=== PATIENT | female | born 1965 | race Caucasian/White ===

== ENCOUNTER 2024-11-06 05:48 | Day surgery (SDC) | payer MEDICARE, SELFPAY ==
[2024-11-06] VITALS (7 sets, daily range): BP systolic 88–131; BP diastolic 46–72; PULSE 73–77; RESP 16–18; TEMP 36.1–36.7; O2SAT 92–95; BMI 47.1
[2024-11-06] MEDS: Lactated Ringers 1,000 ML 15 ML IV (07:30)
--- NOTE | 2024-11-06 07:41 | PCM.PRE.AN2 ---
ASA Classification* ASA Classification ASA Classification: 3 Assessment & Plan Anesthesia* Anesthesia Assessment Anesthesia Assessment: Discussed sedation and/or anesthesia options, risks, benefits, and alternatives with patient/parents/legal guardian/POA. Questions invited. The patient/parents/legal guardian/POA seems to understand and agrees to proceed with anesthesia plan. Reviewed the physical assessment, medical history, allergy history and patient home medications list prior to surgery/procedure/anesthetic and documented any changes. Performed airway and anesthesia risk assessments. 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 When Was Last Pacemaker Check QUESTION #4 FULL TEXT: You/Your Family Experience fever (hyperthermia) with Anesthesia Any additional information?: No Last Oral Intake Last Oral intake: Last Oral Intake NPO since 00:00 11/06/24 07:19 Meds taken in AM with sips of No 11/06/24 07:19 water? Meds patient instructed to take am of surgery PONV PONV - block out machine operator: PONV - block out machine operator Female Yes 11/06/24 07:24 HX of Motion Sickness No 11/06/24 07:24 HX of N/V After Surgery No 11/06/24 07:24 Non-Smoker Yes 11/06/24 07:24 Duration of Surgery greater No 11/06/24 07:24 than 60 minutes Number of Risk Factors 2 11/06/24 07:24 PONV Score Moderate Risk 11/06/24 07:24 Any additional information?: No Height & Weight Height & Weight: Anesthesia: Height & Weight Height 5 ft 6 in 11/06/24 07:19 Weight: 132.449 kg 11/06/24 07:19 Body Mass Index (BMI) 47.1 11/06/24 07:19 Respiratory Assessment Respiratory Assessment - block out machine operator: Respiratory Tract Infection Hx - block out machine operator Hx Respiratory Tract Infection No 11/06/24 07:24 Any additional information?: No STOP Sleep Apnea STOP Sleep Apnea - block out machine operator: STOP Sleep Apnea - block out machine operator Hx Hypertension No 11/06/24 07:24 Hx Sleep Apnea No 11/06/24 07:24 CPAP BIPAP Do you snore loudly (louder No 11/06/24 07:24 than talking or can be heard Do you often feel tired/ No 11/06/24 07:24 fatigued/ sleepy during daytime? Has anyone observed you stop No 11/06/24 07:24 breathing during sleep? STOP Results Negative 11/06/24 07:24 QUESTION #5 FULL TEXT : Do you snore loudly (louder than talking or can be heard through closed doors)? 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 Specify any problems Hx of Preganancy in last 3 No 11/06/24 07:24 Months Nurse Filling Out Transfusion DPRIEST 11/06/24 07:24 & Questions: Date: 11/06/24 11/06/24 07:24 Time: 07:27 11/06/24 07:24 Patient unable to answer at this time (ie. confused, unrespo Any additional information?: Yes Hx of Blood Transfusion: Yes Hx of Transfusion in last 3 Months: No Date of Last Transfusion (if within last 3 months): early 2023 @ [facility] Ever experience any problems with transfusion(s)?: No /Reproduction History /Reproductive History - block out machine operator: /Reproductive Hx- block out machine operator Hx Now No 11/06/24 07:24 Gestational Age (in weeks): EDC: Hx Hx Para Hx Section SAB No 11/06/24 07:24 Any additional information?: No Active Medications Active Medications: Current Medications Generic Name Dose Route Start Last Admin Trade Name Freq PRN Reason Stop Dose Admin Lactated Ringer's 1,000 mls @ 15 mls/hr 11/06/24 06:45 11/06/24 07:30 IV 15 mls/hr .Q48H TOM Administration PFSH Medical History Overactive bladder GERD (gastroesophageal reflux disease) Hypothyroidism Schizophrenia HTN (hypertension) Polyarthritis Hyperlipidemia Dysphagia Heart failure Diabetes COPD (chronic obstructive pulmonary disease) Depression Anxiety Cerebral palsy Home Medications ?Medication ?Instructions ?Recorded ?Last Taken ?Type apixaban 2.5 mg tablet 2.5 mg PO BID 10/15/24 Unknown History cetirizine 10 mg capsule (Zyrtec) 10 mg PO QDAY 10/15/24 Unknown History dapagliflozin propanediol 10 mg 10 mg PO QAM 10/15/24 Unknown History tablet dulaglutide 1.5 mg/0.5 mL 1.5 mg subcut QWEEK 10/15/24 Unknown History subcutaneous pen injector (Trulicity) dulaglutide 3 mg/0.5 mL 3 mg subcut QWEEK 10/15/24 Unknown History subcutaneous pen injector (Trulicity) famotidine 20 mg tablet 20 mg PO QDAY 10/15/24 Unknown History fluconazole 100 mg tablet 150 mg PO QDAY 10/15/24 Unknown History (Diflucan) fluticasone propionate 50 1 spray intranasal QDAY 10/15/24 Unknown History mcg/actuation nasal spray,suspension (Flonase Allergy Relief) furosemide 20 mg tablet (Lasix) 20 mg PO QAM 10/15/24 Unknown History gabapentin 300 mg capsule 300 mg PO TID 10/15/24 Unknown History insulin glargine 100 unit/mL (3 18 unit subcut QPM 10/15/24 Unknown History mL) subcutaneous pen (Lantus Solostar U-100 Insulin) insulin glargine 100 unit/mL 24 unit subcut QAM 10/15/24 Unknown History subcutaneous solution (Lantus U-100 Insulin) insulin lispro 100 unit/mL 1 sliding scale dose subcut 10/15/24 Unknown History subcutaneous pen (Humalog KwikPen USEASDIRECTD (U-100) Insulin) levothyroxine 137 mcg capsule 137 mcg PO QDAY 10/15/24 Unknown History mirabegron 50 mg tablet,extended 50 mg PO QDAY 10/15/24 Unknown History release 24 hr (Myrbetriq) topiramate 25 mg tablet (Topamax) 25 mg PO QDAY 10/15/24 Unknown History ubrogepant 100 mg tablet 100 mg PO ONCE 10/15/24 Unknown History acetaminophen 325 mg capsule 650 mg PO Q4H PRN fever or pain 11/06/24 Unknown History cephalexin 500 mg capsule 500 mg PO TID 11/06/24 Unknown History cholecalciferol (vitamin D3) 125 5,000 unit PO DAILY 11/06/24 Unknown History mcg (5,000 unit) tablet (Vitamin D3) diclofenac sodium 1 % topical gel 4.5 inch topical BID 11/06/24 Unknown History nystatin 100,000 unit/gram topical 1 applic topical DAILY 11/06/24 Unknown History powder (Nystop) pregabalin 75 mg capsule (Lyrica) 75 mg PO QHS 11/06/24 Unknown History zolmitriptan 5 mg disintegrating 5 mg PO Q4H PRN PRN migraine 11/06/24 Unknown History tablet headache Allergy/AdvReac Type Severity Reaction Status Date / Time No Known Allergies Allergy Unverified 10/15/24 13:34 Social History Smoking Status: Former smoker Review of Systems (Anesthesia) ROS Narrative System reviewed and no additional complaints, except as documented.
[2024-11-06 08:00] LABS: Bedside Glucose 176 mg/dL (74-106)
--- NOTE | 2024-11-06 08:05 | PCM.HP.STD ---
HPI - General General Date of Admission: 11/06/24 Date of Service: 11/06/24 Chief Complaint: diarrhea HPI Narrative The patient is a 59-year-old female who is being seen today for colonoscopy. She states that she has been having diarrhea for many many years. She [facility] a [facility]. The treating physician has advised her to get a colonoscopy. She believes that his sister had colon polyps. No family history of colon cancer. She denies any blood or tarry stools [facility] Medical History Overactive bladder GERD (gastroesophageal reflux disease) Hypothyroidism Schizophrenia HTN (hypertension) Polyarthritis Hyperlipidemia Dysphagia Heart failure Diabetes COPD (chronic obstructive pulmonary disease) Depression Anxiety Cerebral palsy Home Medications ?Medication ?Instructions ?Recorded ?Last Taken ?Type apixaban 2.5 mg tablet 2.5 mg PO BID 10/15/24 Unknown History cetirizine 10 mg capsule (Zyrtec) 10 mg PO QDAY 10/15/24 Unknown History dapagliflozin propanediol 10 mg 10 mg PO QAM 10/15/24 Unknown History tablet dulaglutide 1.5 mg/0.5 mL 1.5 mg subcut QWEEK 10/15/24 Unknown History subcutaneous pen injector (Trulicity) dulaglutide 3 mg/0.5 mL 3 mg subcut QWEEK 10/15/24 Unknown History subcutaneous pen injector (Trulicity) famotidine 20 mg tablet 20 mg PO QDAY 10/15/24 Unknown History fluconazole 100 mg tablet 150 mg PO QDAY 10/15/24 Unknown History (Diflucan) fluticasone propionate 50 1 spray intranasal QDAY 10/15/24 Unknown History mcg/actuation nasal spray,suspension (Flonase Allergy Relief) furosemide 20 mg tablet (Lasix) 20 mg PO QAM 10/15/24 Unknown History gabapentin 300 mg capsule 300 mg PO TID 10/15/24 Unknown History insulin glargine 100 unit/mL (3 18 unit subcut QPM 10/15/24 Unknown History mL) subcutaneous pen (Lantus Solostar U-100 Insulin) insulin glargine 100 unit/mL 24 unit subcut QAM 10/15/24 Unknown History subcutaneous solution (Lantus U-100 Insulin) insulin lispro 100 unit/mL 1 sliding scale dose subcut 10/15/24 Unknown History subcutaneous pen (Humalog KwikPen USEASDIRECTD (U-100) Insulin) levothyroxine 137 mcg capsule 137 mcg PO QDAY 10/15/24 Unknown History mirabegron 50 mg tablet,extended 50 mg PO QDAY 10/15/24 Unknown History release 24 hr (Myrbetriq) topiramate 25 mg tablet (Topamax) 25 mg PO QDAY 10/15/24 Unknown History ubrogepant 100 mg tablet 100 mg PO ONCE 10/15/24 Unknown History acetaminophen 325 mg capsule 650 mg PO Q4H PRN fever or pain 11/06/24 Unknown History cephalexin 500 mg capsule 500 mg PO TID 11/06/24 Unknown History cholecalciferol (vitamin D3) 125 5,000 unit PO DAILY 11/06/24 Unknown History mcg (5,000 unit) tablet (Vitamin D3) diclofenac sodium 1 % topical gel 4.5 inch topical BID 11/06/24 Unknown History nystatin 100,000 unit/gram topical 1 applic topical DAILY 11/06/24 Unknown History powder (Nystop) pregabalin 75 mg capsule (Lyrica) 75 mg PO QHS 11/06/24 Unknown History zolmitriptan 5 mg disintegrating 5 mg PO Q4H PRN PRN migraine 11/06/24 Unknown History tablet headache Allergy/AdvReac Type Severity Reaction Status Date / Time No Known Allergies Allergy Unverified 10/15/24 13:34 Social History Smoking Status: Former smoker Vital Signs Vital Signs Vital Signs: 11/06/24 07:19 11/06/24 07:19 11/06/24 07:54 Temperature 98.0 F 98.0 F Temperature Source Temporal Pulse Rate 77 77 Respiratory Rate 18 18 Respiratory Pattern Normal Blood Pressure 119/72 119/72 Blood Pressure Mean 87 Blood Pressure Source Monitor Blood Pressure Position Sitting Blood Pressure Location Right Forearm Pulse Ox 95 95 Oxygen Delivery Method Room Air Room Air Weight Weight: 292 lb Body Mass Index (BMI) 47.1 Physical Exam Const alert, oriented x3 and no apparent distress Results Lab / Micro Data Labs: Laboratory Results - last 24 hr 11/06/24 07:00: POC Glucose 176 H
--- NOTE | 2024-11-06 08:15 | COLBX_PTH ---
PATIENT: BHARAT KAUR LOC: EN U#:[id number] AGE/SX: 59/F ROOM: RE11/06/[address]: Dr. Parveen Varela MD : 1965 BED: DIS: 11/06/2024 SPEC #: [id number] RECD: 11/06/24 10:52 STATUS: STEFAN LAWRENCE #: [id number] KEN: 11/06/24 08:[address]: Parveen Varela DEPT: SURGICAL PATHOLOGY RECD BY: Eleazar Fortune ENTERED: 11/06/24 11:01 SP TYPE: COLON BX BROOK DR: Dr. Ragini Lentz MD Tissues: A - Cecum, NOS B - COLON BIOPSY C - Sigmoid colon biopsy Procedures: Surgery Specimen Level IV HEADER OPERATION: Colonoscopy, polypectomy, biopsy PRE-OP DIAGNOSIS: Fecal incontinence and screening for malignant neoplasm TISSUE SUBMITTED: A- Cecal polyp, B- Random colon biopsy, C- Sigmoid polyps MICROSCOPIC DIAGNOSIS A. Colon, cecum, polyp, biopsy: Tubulovillous adenoma, multiple fragments. B. Colon, random, biopsy: Colonic mucosa with no specific pathologic change. The histologic features of microscopic colitis are not demonstrated. C. Sigmoid colon, polyp, biopsy: Hyperplastic polyp, multiple fragments. MICROSCOPIC DESCRIPTION Slides are reviewed. GROSS DESCRIPTION A. Received in formalin in a container labeled with the patient's name, date of , and cecal polyp are 2 mejia-pink and polypoid pieces of mucosal tissue measuring 0.5 x 0.4 x 0.3 cm and 0.6 x 0.5 x 0.4 cm. No distinct resection margin is identified. The largest fragment is bisected. Submitted entirely in A1. B. Received in formalin in a container labeled with the patient's name, date of , and random colon biopsies are multiple mejia-pink fragments of mucosal tissue measuring 1.5 x 0.9 x 0.3 cm in aggregate. Submitted in toto in B1. C. Received in formalin in a container labeled with the patient's name, date of , and sigmoid polyps are multiple mejia-pink fragments of mucosal tissue measuring 1.1 x 0.5 x 0.3 cm in aggregate. Submitted in toto in C1. [facility] 11-06-2024 CPT:01193d9
--- NOTE | 2024-11-06 09:21 | PCM.POST.ANE ---
Anesthesia: Postop Eval I Current Vital Signs Temperature: 97.1 F Pulse Rate: 73 Blood Pressure: 88/46 Respiratory Rate: 18 Pulse Ox: 93 Assessment Airway patent: Yes Spontaneous unlabored respirations: Yes nausea: No Vomiting: No Anesthesia Complication: No Fluid Hydration Crystalloid volume administer (ml): 300 Total IV fluid infused: 300 Progress Note Anesthesia document: Postop Eval 1 completed: Yes
--- NOTE | 2024-11-06 09:30 | OP.COLON_ITS ---
Patient Name: Claudia Manzanares Procedure Date: 11/06/2024 7:39 AM Date of : 1965 Age: 59 Procedure: Colonoscopy Indications: Chronic diarrhea Providers: Parveen Varela MD Medicines: Monitored Anesthesia Care Patient Profile: This is a 59 year old female. Refer to note in patient chart for documentation of history and physical. Last Colonoscopy: none. The patient's first colonoscopy is today. Complications: No immediate complications. Estimated blood loss: Minimal. Procedure: Pre-Anesthesia Assessment: - Prior to the procedure, a History and Physical was performed, and patient medications and allergies were reviewed. The patient's tolerance of previous anesthesia was also reviewed. The risks and benefits of the procedure and the sedation options and risks were discussed with the patient. All questions were answered, and informed consent was obtained. Prior Anticoagulants: The patient has taken Eliquis (apixaban), last dose was 3 days prior to procedure. ASA Grade Assessment: III - A patient with severe systemic disease. After reviewing the risks and benefits, the patient was deemed in satisfactory condition to undergo the procedure. After I obtained informed consent, the scope was passed under direct vision. Throughout the procedure, the patient's blood pressure, pulse, and oxygen saturations were monitored continuously. The colonoscope was introduced through the anus and advanced to the cecum, identified by appendiceal orifice and ileocecal valve. The ileocecal valve, appendiceal orifice, and rectum were photographed. The entire colon was well visualized. The colonoscopy was performed without difficulty. The patient tolerated the procedure well. The quality of the bowel preparation was adequate. Moderate Sedation: See the other procedure note for documentation of moderate sedation with intraservice time. Scope In: 8:28:58 AM Scope Withdrawal Time 0 hours 26 minutes 35 seconds Scope Out: 9:07:04 AM Total Procedure Duration Time 0 hours 38 minutes 6 seconds Findings: The perianal and digital rectal examinations were normal. Multiple small-mouthed diverticula were found in the sigmoid colon. Internal hemorrhoids were found during retroflexion. The hemorrhoids were mild. A 5 mm polyp was found in the cecum. The polyp was semi-pedunculated. The polyp was removed with a hot snare. Resection and retrieval were complete. Verification of patient identification for the specimen was done by the nurse using the patient's name, date and medical record number. Estimated blood loss was minimal. Three semi-pedunculated polyps were found in the sigmoid colon. The polyps were 3 to 4 mm in size. These polyps were removed with a hot snare. Resection and retrieval were complete. Verification of patient identification for the specimen was done by the nurse using the patient's name, date and medical record number. Estimated blood loss was minimal. The exam was otherwise without abnormality on direct and retroflexion views. Impression: - Diverticulosis in the sigmoid colon. - Internal hemorrhoids. - One 5 mm polyp in the cecum, removed with a hot snare. Resected and retrieved. - Three 3 to 4 mm polyps in the sigmoid colon, removed with a hot snare. Resected and retrieved. - The examination was otherwise normal on direct and retroflexion views. Recommendation: - Discharge patient to home (ambulatory). - High fiber diet. - Await pathology results. - Repeat colonoscopy in 5 years for surveillance. - Return to my office PRN. - Continue present medications. Procedure Code(s): --- Professional --- 09179, Colonoscopy, flexible; with removal of tumor(s), polyp(s), or other lesion(s) by snare technique Diagnosis Code(s): --- Professional --- K64.8, Other hemorrhoids D12.0, Benign neoplasm of cecum D12.5, Benign neoplasm of sigmoid colon K57.30, Diverticulosis of large intestine without perforation or abscess without bleeding K52.9, Noninfective gastroenteritis and colitis, unspecified CPT copyright 2021 [employer]. All rights reserved. The codes documented in this report are preliminary and upon clinical documentation developer review may be revised to meet current compliance requirements. Parveen Varela MD 11/06/2024 9:30:39 AM This report has been signed electronically. Number of Addenda: 0 Note Initiated On: 11/06/2024 7:39 AM
--- NOTE | 2024-11-06 13:42 | POSTOPAN2_ITS ---
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 Spontaneous unlabored Yes 11/06/24 09:21 LABOR UNION BUSINESS REPRESENTATIVE.CSIR respirations Mental status nausea No 11/06/24 09:21 LABOR UNION BUSINESS REPRESENTATIVE.CSIR Vomiting No 11/06/24 09:21 LABOR UNION BUSINESS REPRESENTATIVE.CSIR Anesthesia Postop Eval I: Fluid Summary Crystalloid volume administer 300 11/06/24 09:21 LABOR UNION BUSINESS REPRESENTATIVE.CSIR (ml) Colloids volume administered ( ml) Blood Product volume administered (ml) Total IV fluid infused 300 11/06/24 09:21 LABOR UNION BUSINESS REPRESENTATIVE.CSIR Anesthesia Postop Eval I: Summary Notes Anesthesia Complication No 11/06/24 09:21 LABOR UNION BUSINESS REPRESENTATIVE.CSIR Anesthesia Complication Comment: Post-operative progress note Anesthesia: Postop Eval II Evaluation Mental status: Awake Pain Level: 0 nausea: No Vomiting: No
--- NOTE | 2024-11-06 13:42 | PCM.POSTANE2 ---
Anesthesia Postop Eval I Sum Postop Eval Completion status Anesthesia document: Postop Eval 1 completed: Yes Anesthesia Postop Eval I Summary Anesthesia Postop Eval I Summary: Anesthesia Postop Eval I: Assessment Summary Airway patent Yes 11/06/24 09:21 CUTTER OPERATOR HELPER.CSIR Spontaneous unlabored Yes 11/06/24 09:21 CUTTER OPERATOR HELPER.CSIR respirations Mental status nausea No 11/06/24 09:21 CUTTER OPERATOR HELPER.CSIR Vomiting No 11/06/24 09:21 CUTTER OPERATOR HELPER.CSIR Anesthesia Postop Eval I: Fluid Summary Crystalloid volume administer 300 11/06/24 09:21 CUTTER OPERATOR HELPER.CSIR (ml) Colloids volume administered ( ml) Blood Product volume administered (ml) Total IV fluid infused 300 11/06/24 09:21 CUTTER OPERATOR HELPER.CSIR Anesthesia Postop Eval I: Summary Notes Anesthesia Complication No 11/06/24 09:21 CUTTER OPERATOR HELPER.CSIR Anesthesia Complication Comment: Post-operative progress note Anesthesia: Postop Eval II Evaluation Mental status: Awake Pain Level: 0 nausea: No Vomiting: No
== END 2024-11-06 10:03 | disposition home or self-care (01) ==
LOC: EN 05:55 → AC 06:03
PROVIDERS: PCP Hospitalist; Referring Provider Surgery; Visit Provider Surgery
PROC: 0DJD8ZZ Inspection of Lower Intestinal Tract, Via Natural or Artificial Opening Endoscopic (ICD-10-PCS; CPT 45378; principal; 2024-11-06 08:10)
DX: K52.9 Noninfective gastroenteritis and colitis, unspecified (principal); I11.0 Hypertensive heart disease with heart failure; I50.9 Heart failure, unspecified; J44.9 Chronic obstructive pulmonary disease, unspecified; E11.9 Type 2 diabetes mellitus without complications; Z79.85 Long-term (current) use of injectable non-insulin antidiabetic drugs; Z79.84 Long term (current) use of oral hypoglycemic drugs; K57.30 Diverticulosis of large intestine without perforation or abscess without bleeding; K64.8 Other hemorrhoids; D12.0 Benign neoplasm of cecum; Z87.891 Personal history of nicotine dependence; Z83.719 Family history of colon polyps, unspecified; E78.5 Hyperlipidemia, unspecified; K21.9 Gastro-esophageal reflux disease without esophagitis; Z79.51 Long term (current) use of inhaled steroids; E03.9 Hypothyroidism, unspecified; Z79.890 Hormone replacement therapy; K63.5 Polyp of colon
CPT/HCPCS: 45385; 82962; 88305; J2405

== ENCOUNTER → 2024-11-09 | Outpatient (CLI) | payer MEDICARE, SELFPAY ==
--- NOTE | 2024-11-09 16:50 | RAD_ITS ---
PROCEDURE: LUMBAR SPINE 2 OR 3 VIEWS 11/09/2024 REASON FOR EXAM: SPONDYLOSIS WITHOUT MYELOPATHY OR RADICULOPATHY, LUMBAR REGION TECHNIQUE: 2 view(s) of the lumbar spine COMPARISON: None FINDINGS: Vertebral body heights and alignment are maintained. Multilevel endplate osteophyte formation with disc space narrowing and facet arthrosis, worst at L4-5 and L5-S1. Aortic atherosclerosis. Nonobstructive appearance of the visualized bowel gas. RAD/Lumbar Spine 2 or 3 Views IMPRESSION: Moderate multilevel degenerative changes of the lumbar spine, worst at L4-5 and L5-S1. Reading Location: [id number]
--- NOTE | 2024-11-09 16:50 | RAD_ITS ---
PROCEDURE: KNEE 1 OR 2 VIEWS 11/09/2024 REASON FOR EXAM: OSTEOARTHRITIS TECHNIQUE: 2 views of each knee with weightbearing COMPARISON: None FINDINGS: No fracture or traumatic malalignment. Moderate to severe narrowing in the medial and patellofemoral compartments of the right knee, and mild in the left. Tricompartmental osteophyte formation, right knee greater than left. Trace right knee joint effusion. No significant left knee joint effusion. Soft tissues are unremarkable bilaterally. RAD/Knee 1 or 2 Views IMPRESSION: 1. Moderate to severe right and mild left knee osteoarthritis. 2. Trace right knee joint effusion. Reading Location: [facility]
--- NOTE | 2024-11-09 16:50 | RAD_ITS ---
PROCEDURE: KNEE 1 OR 2 VIEWS 11/09/2024 REASON FOR EXAM: OSTEOARTHRITIS TECHNIQUE: 2 views of each knee with weightbearing COMPARISON: None FINDINGS: No fracture or traumatic malalignment. Moderate to severe narrowing in the medial and patellofemoral compartments of the right knee, and mild in the left. Tricompartmental osteophyte formation, right knee greater than left. Trace right knee joint effusion. No significant left knee joint effusion. Soft tissues are unremarkable bilaterally. RAD/Knee 1 or 2 Views IMPRESSION: 1. Moderate to severe right and mild left knee osteoarthritis. 2. Trace right knee joint effusion. Reading Location: [facility]
== END | disposition home or self-care (01) ==
PROVIDERS: PCP Hospitalist; Referring Provider Anesthesiology Pain Medicine; Visit Provider Anesthesiology Pain Medicine
DX: M17.0 Bilateral primary osteoarthritis of knee (principal); M47.817 Spondylosis without myelopathy or radiculopathy, lumbosacral region; M47.816 Spondylosis without myelopathy or radiculopathy, lumbar region
CPT/HCPCS: 72100; 73560

== ENCOUNTER 2025-01-15 23:08 | Emergency (ER) | payer MEDICARE, MEDICAID, SELFPAY ==
[2025-01-15 23:09] VITALS: BP 131/85; PULSE 100; RESP 18; TEMP 37.3; O2SAT 92; BMI 46.3
[2025-01-15 23:13] VITALS: BP 131/85; PULSE 100; RESP 18; TEMP 37.3; O2SAT 92
--- NOTE | 2025-01-15 23:18 | ED.RN ---
Legal Guardian, Neelima Benson, called by this RN. Voicemail left for consent to treat.
[2025-01-15] MEDS: 0.9% Normal Saline (1000mL) 1,000 ML 999 ML IV (23:52)
--- OUTSIDE RECORDS SUMMARY | 2025-01-15 23:57 | XMS RPT_ITS | CCD ---
Author Organization [facility] Care Team Providers Care Residential Program Coordinator Name Role Phone Lisa Leiva Primary Care Provider [phone] Unavailable Primary Care Provider Unavailabl e Lisa Leiva Primary Care Provider Lisa Leiva Primary Care Provider Vasiliy Griffin Primary Care Provider [phone] Required, No Pcp Unavailable Unavailable Mahesh Mcknight Unavailable Tawnya Ramirez Unavailable Unavailable Lisa Leiva MD Primary Care Provider None, No PCP Unavailable Unavailable Unavailable Unavailable Brice Mcfarland APRN Primary Care Provider FREDERIC DUKE Attending Unavailable VASILIY GRIFFIN Primary Care Unavailable FREDERIC DC Admitting Unavailable FREDERIC DC Attending Unavailable FREDERIC DC Referring Unavailable CADY TRAN Consulting Unavailable BRICE MCFARLAND A Primary Care Unavailable EDUARD YANES Attending Unavailable RADHA PURDY Consulting Unavailable MIGUEL A ELLISON I Admitting Unavailable BRICE MCFARLAND A Primary Care Unavailable NAKUL GREEN Consulting Unavailable MITCH PARSONS Attending Unavailable BRICE MCFARLAND A Primary Care Unavailable RASHEED SALAZAR Attending Unavailable TORRI GAN Attending Unavailable JOHANA CLIFFORD Attending Unavailable Iachini MEETING COORDINATOR, Ehden A Primary Care Provider KAYYALI I, AMMAR Referring Unavailable IACHINI, DEN A Primary Care Unavailable KAYYALI I, AMMAR Referring Unavailable IACHINI, DEN A Primary Care Unavailable STORM JOSEPH A Admitting Unavailable STORM JOSEPH Attending Unavailable DAYAN FOLEY Attending Unavailable POLICHERLA, RAINEY Attending Unavailable POLICHERLA, RAINEY Referring Unavailable POLICHERLA, RAINEY Attending Unavailable POLICHERLA, RAINEY Referring Unavailable POLICHERLA, RAINEY Attending Unavailable POLICHERLA, RAINEY Referring Unavailable Gaby MEETING COORDINATOR - ACOUSTICS TEACHER, [facility] Primary Care Provider GABY VASILIY Primary Care Unavailable EDWARD MORALES Admitting Unavailable FRANCISCO BROWN Attending Unavailable Bronson Kearney ([facility]) Primary Care Provider Iachini MEETING COORDINATOR-ENVELOPE MACHINE ADJUSTER, [facility] A Primary Care Provider Iacarni MEETING COORDINATOR-ENVELOPE MACHINE ADJUSTER, [facility] A Primary Care Provider Nichole RIDDLE, Dr. Johana Christianson Attending Provider Nichole RIDDLE, Dr. Johana Christianson Referring Provider Tor RIDDLE, Dr. Ragini Pierce Primary Care [facility] er Nichole RIDDLE, Dr. Johana Christianson Other Provider Collin RIDDLE, Dr. Oreilly Attending Provider [phone] Collin RIDDLE, Dr. Oreilly Referring Provider [phone] Tor RIDDLE, Dr. Ragini Pierce Referring Provider Deepak ACOUSTICS TEACHER-CPenny Attending Provider Ragini Lentz Primary Care Unavailabl Johana Fritz Consulting Unavailable Johana Varela Attending Unavailable Johana Varela Referring Unavailable Tor, Ragini Pierce Primary Care Unavailabl e Johana Varela Attending Unavailable Johana Varela Referring Unavailable Tor, Ragini Pierce Primary Care Unavailabl e Denilson Polanco Attending Unavailable Denilson Polanco Referring Unavailable Tor, Ragini Pierce Primary Care Ragini Oconnell Referring UnavailPenny Mitchell Attending Unavailable Johana Varela Attending Unavailable FARRUKH ANDERS PA-C Attending VANCE Vidales DO Attending Unavailable ADAL HARTMANN DO Attending Unavailable FARRUKH ANDERS PA-C Attending Sam jones REFERRING, Russell Primary Care Unavailable Allergies Allergy Classification Reported Allergen(s) Allergy Type Date of Onset Reaction(s) Facility Dust (1 source) Dust Substance Allergy Unknown [facility] Histamine (7 sources) Histamine Drug Allergy 8 [facility] MITE EXTRACT (7 sources) MITE EXTRACT Drug Allergy 0 [facility] (20 sources) Histamine; Translations: [HISTAMINE PHOSPHATE] Drug Allergy 8 [place] (2 sources) Valproate Drug Allergy 6 [place], [place] (11 sources) MITE EXTRACT Drug Allergy 0 [place] (1 source) Moroc[place] house dust mite allergenic extract / house dust mite allergenic extract; Translations: [Dust Mite Mixed Allergen Ext SOLN] Drug Allergy [facility] Work Phone: (1 source) Histamine POWD; Translations: [Histamine POWD] Allergy to drug (finding) [facility] Work Phone: (20 sources) ALLERGENIC EXT-MITE, D FARINAE; Translations: [ALLERGENIC EXT-MITE, D FARINAE] Propensity to adverse reactions to drug (disorder) 0 [facility] Repository (1 source) DIVALPROEX; Translations: [DIVALPROEX] Propensity to adverse reactions to drug (disorder) 2 [facility] Repository Medications Current Medications Medication Drug Class(es) Dates Sig (Normalized) Sig (Original) acetaminophen 325 mg oral capsule (20 sources) Start: 11-06-2024 take 2 capsules by mouth every four hours as needed for pain Acetaminophen 325 mg capsule Active 650 mg PO Q4H as needed for fever or pain November 06, 2024 12:00am Start: 05-13-2024 End: 05-23-2024 take 2 tablets by mouth every six hours as needed for pain and fever acetaminophen (Tylenol) 325 MG tablet Take 2 tablets (650 mg) by mouth every 6 hours as needed for mild pain (1-3) or fever (For temp greater than 100.4 F (38 C)) for up to 10 days. 05/13/2024 05/23/2024 Active Start: 05-10-2024 End: 05-13-2024 take 1 tablet by mouth every six hours as needed for pain and fever acetaminophen (Tylenol) tablet 650 mg Start: 05-10-2024 End: 05-10-2024 1,000 mg, Oral, Once, On 05/10/24 at 1100, For 1 dose, Maximum dose of acetaminophen is 4000 mg from all sources in 24 hours. Start: 10-07-2022 take 2 tablets by mo uth every six hours as needed for pain acetaminophen (TYLENOL EXTRA STRENGTH) 500 mg tablet Take 2 tablets (1,000 mg total) by mouth every 6 (six) hours as needed for pain. 90 tablet 10/07/2022 Active Start: 08-24-2022 acetaminophen (TYLENOL) tablet 650 mg Start: 08-21-2022 acetaminophen (TYLENOL) tablet 650 mg Start: 09-08-2021 take 1 tablet by brooks th four times daily as needed for pain acetaminophen (TYLENOL) 500 MG tablet Take 1 tablet by mouth 4 times daily as needed for Pain 20 tablet 1 09/08/2021 Active Start: 01-20-2020 take 31.25 mL by brooks th every six hours as needed for fever acetaminophen (TYLENOL CHILDRENS) 160 MG/5ML suspension Take 31.25 mLs by mouth every 6 hours as needed for Fever 355 mL 1 01/20/2020 Active Start: 01-20-2020 End: 01-20-2020 take 2 tablets by mouth every six hours as needed for pain acetaminophen (APAP EXTRA STRENGTH) 500 MG tablet Take 2 tablets by mouth every 6 hours as needed for Pain 30 tablet 0 01/20/2020 01/20/2020 Discontinued (Therapy completed) Start: 10-28-2017 End: 01-20-2020 Acetaminophen (TYLENOL) 167 MG/5ML LIQD Indications: Pain, dental Use as needed 1 Bottle 0 10/28/2017 01/20/2020 Discontinued (Therapy completed) [id number] 200 actuat albuterol 0.09 mg/actuat metered dose inhaler (20 sources) beta2-Adrenergic Agonist Start: 06-18-2022 take 2 puff(s) by inhalation every four hours as needed for wheezing albuterol (PROVENTIL HFA;VENTOLIN HFA) 90 mcg/actuation inhaler Indications: Asthma, unspecified asthma severity, unspecified whether complicated, unspecified whether persistent Inhale 2 puffs every 4 (four) hours as needed for wheezing. 18 g 06/18/2022 Active Start: 02-23-2021 take 2 puff(s) by in halation every six hours as needed for wheezing PROAIR HFA 108 (90 Base) MCG/ACT inhaler Indications: Chronic obstructive pulmonary disease, unspecified COPD type (HCC) INHALE 2 PUFFS INTO THE LUNGS EVERY 6 HOURS NEEDED FOR WHEEZING 8.5 g 5 02/23/2021 Active Start: 07-25-2020 take 2 puff(s) by in halation every six hours as needed for wheezing albuterol sulfate HFA (PROAIR HFA) 108 (90 Base) MCG/ACT inhaler Indications: Chronic obstructive pulmonary disease, unspecified COPD type (HCC) Inhale 2 puffs into the lungs every 6 hours as needed for Wheezing 1 Inhaler 5 07/25/2020 Active Start: 07-25-2020 take 2 puff(s) by in halation every six hours as needed for wheezing albuterol sulfate HFA (PROAIR HFA) 108 (90 Base) MCG/ACT inhaler Indications: Chronic obstructive pulmonary disease, unspecified COPD type (HCC) Inhale 2 puffs into the lungs every 6 hours as needed for Wheezing 1 Inhaler 5 07/25/2020 Active Start: 03-11-2020 albuterol (PRO VENTIL) (2.5 MG/3ML) 0.083% nebulizer solution Start: 03-11-2020 albuterol (PRO VENTIL) nebulizer solution 2.5 mg Start: 07-21-2019 End: 02-26-2020 take 2 puff(s) by inhalation every six hours as needed for wheezing albuterol sulfate HFA (PROAIR HFA) 108 (90 Base) MCG/ACT inhaler Inhale 2 puffs into the lungs every 6 hours as needed for Wheezing 1 Inhaler 11 07/21/2019 02/26/2020 Discontinued (LIST CLEANUP) Start: 01-06-2019 take 2 puff(s) by in halation four times daily as needed for wheezing albuterol sulfate HFA 108 (90 Base) MCG/ACT inhaler Inhale 2 puffs into the lungs 4 times daily as needed for Wheezing 3 Inhaler 5 01/06/2019 Active Start: 01-06-2019 take 2 puff(s) by in halation four times daily as needed for wheezing albuterol sulfate HFA 108 (90 Base) MCG/ACT inhaler Inhale 2 puffs into the lungs 4 times daily as needed for Wheezing 3 Inhaler 5 01/06/2019 Active Start: 06-18-2018 take 2 puff(s) by mo ut every six hours as needed for wheezing PROAIR HFA 108 (90 Base) MCG/ACT inhaler INHALE 2 PUFFS BY MOUTH EVERY 6 HOURS NEEDED FOR WHEEZING OR FORSHORTNESS OF BREATH 1 Inhaler 5 06/18/2018 Active Start: 06-18-2018 take 2 puff(s) by mo uth every six hours as needed for wheezing PROAIR HFA 108 (90 Base) MCG/ACT inhaler INHALE 2 PUFFS BY MOUTH EVERY 6 HOURS NEEDED FOR WHEEZING OR FORSHORTNESS OF BREATH 1 Inhaler 5 06/18/2018 Active ProAir HFA 108 ( 90 Base) MCG/ACT Inhalation Aerosol Solution Quantity: 0 Refills: 0 Ordered: 25-Aug-2020 DO Active albuterol 0.833 mg/ml / ipratropium bromide 0.167 mg/ml inhalation solution (20 sources) Anticholinergic, beta2-Adrenergic Agonist Start: 02-26-2022 ipratropium-albuteroL (DUONEB) 0.5 mg-3 mg(2.5 mg base)/3 mL nebulizer Indications: Asthma, unspecified asthma severity, unspecified whether complicated, unspecified whether persistent Inhale 3 mL by nebulization in the morning and 3 mL at noon and 3 mL in the evening and 3 mL before bedtime. 360 mL 11 02/26/2022 Active Start: 07-25-2020 End: 08-23-2022 take 3 mL by inhalation every four hours ipratropium-albuterol (DUONEB) 0.5-2.5 (3) MG/3ML SOLN nebulizer solution Indications: Chronic obstructive pulmonary disease, unspecified COPD type (HCC) Inhale 3 mLs into the lungs every 4 hours 360 mL 5 07/25/2020 08/23/2022 Discontinued (Stop Taking at Discharge) Start: 01-19-2020 ipratropium-al buterol (DUONEB) 0.5-2.5 (3) MG/3ML SOLN nebulizer solution Take 3 mLs by nebulization every 6 hours as needed for Shortness of Breath 120 vial 11 01/19/2020 Active Start: 01-06-2019 ipratropium-al buterol (DUONEB) 0.5-2.5 (3) MG/3ML SOLN nebulizer solution Take 3 mLs by nebulization 4 times daily 360 mL 11 01/06/2019 Active Albuterol-Ipratr opium 2.5-0.5 MG/3ML SOLN Quantity: 0 Refills: 0 Ordered: 25-Aug-2020 DO Active Albuterol-Ipratr opium [place] Quantity: 0 Refills: 0 Ordered: 20-Oct-2020 Radha Holman A Generic Substitution Allowed albuterol sulfate HFA 108 (90 Base) MCG/ACT inhaler (12 sources) Start: 01-06-2019 take 2 puff(s) by inhalation four times daily as needed for wheezing albuterol sulfate HFA 108 (90 Base) MCG/ACT inhaler Inhale 2 puffs into the lungs 4 times daily as needed for Wheezing 3 Inhaler 5 01/06/2019 Suspended Start: 01-06-2019 take 2 puff(s) by in halation four times daily as needed for wheezing albuterol sulfate HFA 108 (90 Base) MCG/ACT inhaler Inhale 2 puffs into the lungs 4 times daily as needed for Wheezing 3 Inhaler 5 01/06/2019 Active aluminum hydroxide 40 mg/ml / magnesium hydroxide 40 mg/ml / simethicone 4 mg/ml oral suspension (12 sources) take 30 mL by mouth twice daily at mealtime aluminum & magnesium hydroxide-simethicone (ALMACONE) 200-200-20 MG/5ML SUSP suspension Take 30 mLs by mouth 2 times daily (with meals) 0 Active apixaban 2.5 mg oral tablet (20 sources) Factor Xa Inhibitor Start: 025 take 1 tablet by mouth twice daily Apixaban 2.5 mg tablet Active 2.5 mg PO TWICE A DAY October 15, 2024 12:00am Start: 09-13-2022 End: 05-13-2024 take 1 tablet by mouth in the morning, then take 1 tablet by mouth at bedtime apixaban (ELIQUIS) 5 mg tablet Indications: Acute deep vein thrombosis (DVT) of proximal vein of right lower extremity (CMS-HCC) Take 1 tablet (5 mg total) by mouth in the morning and 1 tablet (5 mg total) before bedtime. 60 tablet 3 09/13/2022 Active Start: 08-21-2022 End: 09-27-2022 take 2 tablets by mouth twice daily, then take 1 tablet by mouth twice daily apixaban (ELIQUIS) 5 MG TABS tablet Take 2 tablets by mouth 2 times daily for 7 days, THEN 1 tablet 2 times daily. 88 tablet 0 08/21/2022 09/27/2022 Suspended Start: 08-21-2022 End: 08-28-2022 apixaban (ELIQUIS) tablet 10 mg Start: 11-02-2020 End: 11-02-2020 apixaban (ELIQUIS) tablet 10 mg Start: 11-02-2020 End: 09-01-2022 take 5 mg by mouth twice daily 5 mg, Oral, 2 TIMES ISABEL LY, First dose on Sat08/24/22 at 2100, Until Discontinued Indication of Use: Treatment-DVT/PE ANTICOAGULANT ARIPiprazole 5 mg oral tablet (20 sources) Atypical Antipsychotic Start: 07-13-2022 End: 08-23-2022 ARIPiprazole (ABILIFY) 5 mg tablet 07/13/2022 Active aspirin 81 mg delayed release oral tablet (20 sources) Platelet Aggregation Inhibitor, Nonsteroidal Anti-inflammatory Drug Start: 01-19-2019 take 1 tablet by mouth once daily aspirin (ASPIRIN LOW DOSE) 81 MG EC tablet TAKE 1 TABLET BY MOUTH DAILY 30 tablet 3 01/14/2020 Active Start: 10-21-2018 take 1 tablet by brooks th once daily aspirin 81 MG tablet Take 1 tablet by mouth daily 30 tablet 2 10/21/2018 Active benzocaine 0.1 mg/mg oral gel (13 sources) Standardized Chemical Allergen Start: 01-20-2020 benzocaine (ORAJEL) 10 % mucosal gel Apply to affected tooth up to 4 times a day as needed for pain 9 g 0 01/20/2020 Active benztropine mesylate 1 mg oral tablet (20 sources) Anticholinergic, Antihistamine take 0.5 mg by mouth twice daily benztropine (COGENTIN) 1 MG tablet Take 0.5 mg by mouth 2 times daily 0 Active take 1 tablet by mouth twice isabel ly benztropine (COGENTIN) 1 MG tablet Take 1 mg by mouth 2 times daily 0 Active calcium carbonate 500 mg chewable tablet (1 source) Start: 08-21-2022 calcium carbon ate (TUMS) chewable tablet 1,000 mg calcium chloride 0.0014 meq/ ml / potassium chloride 0.004 meq/ml / sodium chloride 0.103 meq/ml / sodium lactate 0.028 meq/ml injectable solution (2 sources) Start: 03-11-2020 lactated ringe rs infusion 1,000 mL Start: 12-01-2019 lactated ringe rs infusion cetirizine hydrochloride 10 mg oral capsule (20 sources) Histamine-1 Receptor Antagonist Start: 10-15-2024 End: 12-02-2024 take 1 capsule by mouth once daily as needed Cetirizine (Zyrtec) 10 mg capsule Active 10 mg PO daily as needed December 02, 2024 12:00am Start: 11-02-2019 End: 11-02-2019 cetirizine HCl (ZYRTEC) 5 MG /5ML solution 5 mg Start: 11-02-2019 take 5 mL by mouth once daily cetirizine HCl (ZYRTEC) 5 MG/5ML SOLN Take 5 mLs by mouth daily 300 mL 0 11/02/2019 Active Cholecalciferol (VITAMIN D-3 ) 5000 UNIT/ML LIQD (3 sources) Cholecalciferol (VITAMIN D-3) 5000 UNIT/ML LIQD Place 5,000 Units under the tongue 0 Suspended Cholecalciferol (VITAMIN D-3) 5000 UNIT/ML LIQD Place 5,000 Units under the tongue 0 Active dapagliflozin 10 mg oral tablet (7 sources) Sodium-Glucose Cotransporter 2 Inhibitor Start: 05-10-2024 End: 05-14-2025 take 1 tablet by mouth once daily in the morning Dapagliflozin Propanediol 10 mg tablet Active 10 mg PO EVERY MORNING October 15, 2024 12:00am 24 hr darifenacin 7.5 mg extended release oral tablet (20 sources) Cholinergic Muscarinic Antagonist Start: 04-14-2019 darifenacin (ENABLEX) 7.5 MG extended release tablet famotidine 20 mg oral tablet (7 sources) Histamine-2 Receptor Antagonist Start: 10-15-2024 take 1 tablet by mouth once daily Famotidine 20 mg tablet Active 20 mg PO daily October 15, 2024 12:00am Start: 05-13-2024 End: 05-13-2025 take 1 tablet by mouth twice daily famotidine (Pepcid) 20 MG tablet Take 1 tablet (20 mg) by mouth 2 times daily. 05/13/2024 05/13/2025 Active Start: 05-10-2024 End: 05-13-2024 famotidine (Pepcid) tablet 2 0 mg fluconazole 150 mg oral tablet (5 sources) Azole Antifungal Start: 12-02-2024 take 1 tablet by mouth once daily Fluconazole 150 mg tablet Active 150 mg PO daily December 02, 2024 12:00am Start: 10-15-2024 End: 12-02-2024 Fluconazole (Diflucan) 100 m g tablet Discontinued 150 mg PO daily October 15, 2024 12:00am December 02, 2024 10:54am Start: 10-27-2020 End: 11-07-2020 take 2 tablets by mouth once daily fluconazole 200 mg oral tablet ; 2 tab(s) orally once a day for 12 days Quantity: 24 Refills: 0 Ordered: 27-Oct-2020 Nicole Deleon Start: 27-Oct-2020 End: 07-Nov-2020 Generic Substitution Allowed Comments: Do not take this drug if you are .Finish all this medication unless otherwise directed by prescriber. Comment on above: Do not take this hermilo g if you are .Finish all this medication unless otherwise directed by prescriber. fluticasone propionate 0.05 mg/actuat metered dose nasal spray (20 sources) Corticosteroid Start: take 50 ug nasal route once daily Fluticasone Propionate (Flonase Allergy Relief) 50 mcg/actuation spray,suspension Active 1 NMA INTRANASAL daily October 15, 2024 12:00am administer into each nostril Start: 02-25-2020 take 2 spray(s) nasa l route once daily fluticasone (FLONASE) 50 MCG/ACT nasal spray Indications: Acute bacterial sinusitis 2 sprays by Each Nostril route daily 1 Bottle 0 02/25/2020 Active Start: 06-30-2019 take 2 spray(s) nasa l route once daily fluticasone (FLONASE) 50 MCG/ACT nasal spray Indications: Non-seasonal allergic rhinitis, unspecified trigger 2 sprays by Each Nostril route daily 3 Bottle 1 06/30/2019 Active Fluticasone Petr tity: 0 Refills: 0 Ordered: 20-Oct-2020 Radha Holman Generic Substitution Allowed 120 actuat fluticasone propionate 0.115 mg/actuat / salmeterol 0.021 mg/actuat metered dose inhaler (20 sources) Corticosteroid, beta2-Adrenergic Agonist Start: 07-21-2019 take 2 puff(s) by inhalation twice daily ADVAIR HFA 115-21 MCG/ACT inhaler Inhale 2 puffs into the lungs 2 times daily 1 Inhaler 11 07/21/2019 Active Start: 02-25-2019 ADVAIR HFA 115 -21 MCG/ACT inhaler Advair HFA 115-2 1 MCG/ACT Inhalation Aerosol Quantity: 0 Refills: 0 Ordered: 25-Aug-2020 DO Active gabapentin 300 mg oral capsule (20 sources) Anti-epileptic Agent Start: 05-10-2024 End: 05-13-2025 take 1 capsule by mouth three times daily Gabapentin 300 mg capsule Active 300 mg PO THREE TIMES A DAY October 15, 2024 12:00am Start: 01-08-2023 take 1 capsule by mo [facility] three times daily gabapentin (NEURONTIN) 100 mg capsule Indications: Lumbosacral radiculopathy , 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 90 capsule 5 01/08/2023 Active Start: 09-01-2022 gabapentin (NE URONTIN) capsule 100 mg glimepiride 1 mg oral tablet (5 sources) Sulfonylurea Start: 11-21-2015 take 1 tablet by mouth once daily before breakfast glimepiride (AMARYL) 1 MG tablet Take 1 tablet by mouth every morning (before breakfast) 30 tablet 2 11/21/2015 Active take 1 tablet by brooks th once daily before breakfast glimepiride (AMARYL) 2 MG tablet Take 2 mg by mouth every morning (before breakfast) 0 Active guaiFENesin 400 mg oral tablet (2 sources) Start: 11-13-2018 take 1 tablet by mouth twice daily as needed for cough guaiFENesin 400 MG tablet Take 1 tablet by mouth 2 times daily as needed for Cough 20 tablet 0 11/13/2018 Active hydrOXYzine hydrochloride 10 mg oral tablet (1 source) Antihistamine Start: 08-25-2022 hydrOXYzine HC l (ATARAX) tablet 10 mg Incontinence Supply Disposable (INCONTINENCE BRIEF LARGE) MISC (20 sources) Start: 08-15-2017 Incontinence S upply Disposable (INCONTINENCE BRIEF LARGE) MISC Indications: Medication refill Patient states she needs xl in the select brand 3 Package 3 08/15/2017 Suspended Start: 08-15-2017 Incontinence S upply Disposable (INCONTINENCE BRIEF LARGE) MISC Indications: Medication refill Patient states she needs xl in the select brand 3 Package 3 08/15/2017 Active 3 ml insulin glargine 100 unt/ml pen injector (3 sources) Insulin Analog Start: 10-15-2024 Insulin Glargi ne (Lantus Solostar U-100 Insulin) 100 unit/mL (3 mL) insulin pen Active 18 U SC EVERY EVENING October 15, 2024 12:00am Insulin Glargine (Lantus U-100 Insulin) 100 unit/mL solution (3 sources) Start: 10-15-2024 Insulin Glargi ne (Lantus U-100 Insulin) 100 unit/mL solution Active 24 U SC EVERY MORNING October 15, 2024 12:00am 3 ml insulin lispro 100 unt/ml pen injector (5 sources) Insulin Analog Start: 10-15-2024 Insulin Lispro (Humalog Kwikpen Insulin) 100 unit/mL insulin pen Active 1 sliding scale dose SC Use as Directed October 15, 2024 12:00am Start: 05-13-2024 Insulin Lispro (Humalog) 100 UNIT/ML solution injection Glucose: Dose: LESS than 150 No Insulin, 150-199 2 Units, 200-249 4 Units, 250-299 6 Units, 300-349 8 Units, 350-400 10 Units, Above 400 12 Units 05/13/2024 Active levothyroxine sodium 0.137 mg oral capsule (20 sources) l-Thyroxine Start: 10-15-2024 take 1 capsule by mouth once daily Levothyroxine 137 mcg capsule Active 137 ug PO daily October 15, 2024 12:00am Start: 05-11-2024 End: 05-14-2025 take 1 tablet by mouth once daily before breakfast levothyroxine (Synthroid, Levoxyl) 137 MCG tablet Take 1 tablet (137 mcg) by mouth every morning (before breakfast). 05/14/2024 05/14/2025 Active Start: 08-25-2022 take 200 ug by mouth once prerna y 200 mcg, Oral, DAILY, First dose on [facility] 08/25/22 at 0700, Until Discontinued Tube feeding (TF) interaction, obtain physician order to manage, recommend holding TF for 30 minutes before and after dose. Start: 08-22-2022 End: 08-22-2022 take 200 ug by mouth once daily 200 mcg, Oral, DAILY, First dose on [place] 08/23/22 at 0700, Until Discontinued Tube feeding (TF) interaction, obtain physician order to manage, recommend holding TF for 30 minutes before and after dose. take 1 tablet by brooks th in the morning for hypothyroidism, then take 3 tablets by mouth once daily for hypothyroidism levothyroxine (SYNTHROID, LEVOTHROID) 50 MCG tablet Take 1 tablet (50 mcg total) by mouth in the morning. 3 tablets by mouth one time a day for hypothyroidism . Active levothyroxine (S YNTHROID) 175 MCG tablet Take 200 mcg by mouth Daily 0 Active Levothyroxine So dium 175 MCG Oral Tablet Quantity: 0 Refills: 0 Ordered: 25-Aug-2020 DO Active take 1 tablet by mouth once prerna y levothyroxine (SYNTHROID) 175 MCG tablet Take 175 mcg by mouth Daily 0 Active Levothyroxine So dium Quantity: 0 Refills: 0 Ordered: 20-Oct-2020 Radha Holman A Generic Substitution Allowed 10 ml lidocaine hydrochloride 10 mg/ml injection (1 source) Antiarrhythmic, Amide Local Anesthetic Start: 12-01-2019 End: 12-01-2019 lidocaine PF 1 % injection 1 mL loperamide hydrochloride 2 mg oral capsule (2 sources) Opioid Agonist Start: 08-30-2022 End: 09-09-2022 loperamide (IMODIUM) capsule 2 mg lurasidone hydrochloride 40 mg oral tablet (4 sources) Atypical Antipsychotic Start: 05-11-2024 End: 06-13-2024 take 1 tablet by mouth once daily at breakfast lurasidone (Latuda) 40 MG tablet Take 1 tablet (40 mg) by mouth daily (with breakfast). 05/14/2024 06/13/2024 Active 100 ml magnesium sulfate 10 mg/ml injection (1 source) Start: 08-21-2022 take 1000 mg intravenously every hour as needed 1,000 mg, IntraVENous, at 100 mL/hr, Administer over 1 Hours, PRN, Other, Per IV Magnesium Replacement Protocol, Starting on Sat08/21/22 at 0340 Mg Lab Rep lacement Action 1.4 -1.6 &nbsp ; 1 gram IVPB x 2 doses &nbs p; & nbsp; &nbs p; & nbsp; &nbs p; & nbsp; &nbs p; ( 2 gram Total) 1.0 -1.3 &nbsp ; 1 gram IVPB x 4 doses &nbs p; & nbsp; &nbs p; & nbsp; &nbs p; & nbsp; &nbs p; ( 4 gram Total) <1. 0 &n bsp; &nbsp ; &n bsp; CALL PHYSICIAN and &nb sp; &nb sp; &nb sp; 1 gram IVPB x 4 doses &nb sp; (4 gram Total) &nb sp;Infuse at 1 gram/hr Re peat Mag level next AM Protoco l not for use in Patients with CrCl<30ml/min&n bsp; metFORMIN hydrochloride 500 mg oral tablet (20 sources) Biguanide Start: 08-27-2022 metFORMIN (GLUCOPHAGE) tablet 1,000 mg Start: 08-26-2022 End: 08-27-2022 metFORMIN (GLUCOPHAGE) table t 500 mg Start: 08-21-2022 metFORMIN (GLU COPHAGE) tablet 500 mg Start: 07-19-2022 RIOMET 500 mg/ 5 mL solution Indications: type 2 diabetes mellitus Take 5 mL (500 mg total) by mouth in the morning and 5 mL (500 mg total) in the evening. Take with meals. Indications: type 2 diabetes mellitus. 900 mL 3 07/19/2022 Active Start: 06-06-2015 RIOMET 500 MG/ 5ML SOLN 5 mLs daily 0 06/06/2015 Active Start: 06-06-2015 RIOMET 500 MG/ 5ML SOLN 5 mLs daily 0 06/06/2015 Active metFORMIN HCl 50 0 MG/5ML SOLN Take by mouth 0 Active metFORMIN HCl - 500 MG Oral Tablet Quantity: 0 Refills: 0 Ordered: 25-Aug-2020 DO Active metFORMIN / pioglitazone (1 source) Biguanide, Peroxisome Proliferator Receptor alpha Agonist, Peroxisome Proliferator Receptor gamma Agonist, Thiazolidinedione Metformin HCl-Pioglitazone HCl Quantity: 0 Refills: 0 Ordered: 20-Oct-2020 Radha Holman Generic Substitution Allowed 24 hr mirabegron 50 mg extended release oral tablet (20 sources) beta3-Adrenergic Agonist Start: 025 take 1 tablet by mouth once daily Mirabegron (Myrbetriq) 50 mg tablet extended release 24 hr Active 50 mg PO daily October 15, 2024 12:00am Start: 05-24-2022 take 1 tablet by brooks th every twenty-four hours in the morning mirabegron (MYRBETRIQ) 50 mg tablet extended release 24 hr Indications: Urge incontinence Take 1 tablet (50 mg total) by mouth in the morning. 90 tablet 3 05/24/2022 Active Start: 04-14-2019 MYRBETRIQ 50 M G TB24 50 mg daily 11 04/14/2019 Active Myrbetriq 50 MG Oral Tablet Extended Release 24 Hour Quantity: 0 Refills: 0 Ordered: 25-Aug-2020 DO Active Mirabegron Quant ity: 0 Refills: 0 Ordered: 20-Oct-2020 Radha Holman Generic Substitution Allowed mometasone furoate 0.05 mg/actuat metered dose nasal spray (2 sources) Corticosteroid Start: 08-27-2018 take 2 spray(s) by inhalation once daily mometasone (NASONEX) 50 MCG/ACT nasal spray 2 sprays by Nasal route daily 1 Inhaler 3 08/27/2018 Active Nebulizers (COMPRESSOR/NEBULI ZER) [facility] [place] ([place] sources[place] Start: 09-27-2015 Nebulizers (COMPRESSOR/NEBUL IZER) [facility] [place] Indications: Simple chronic bronchitis (HCC) Use for shortness of breath as needed 1 each 3 09/27/2015 Suspended Start: 09-27-2015 Nebulizers (CO MPRESSOR/NEBULIZER) [facility] [place] Indications: Simple chronic bronchitis (HCC) Use for shortness of breath as needed 1 each 3 09/27/2015 Active 24 hr nicotine 0.875 mg/hr transdermal system (20 sources) Cholinergic Nicotinic Agonist Start: 08-25-2022 apply 1 dose transdermal route once daily as needed 1 patch, TransDERmal, Administer over 24 Hours, DAILY PRN, nicotine crav ing, Starting on 08/25/22 at 1242 Apply new patch to nonhairy, clean, dry skin on the upper body or upper outer arm. Rotate patch sites. Notify pharmacy if patient or provider prefers patch to be removed at bedtime and replaced in the morning. Hazardous Medication -- Refer to facility policy for handling and disposal. Start: 08-25-2022 nicotine (VENTURA DERM CQ) 14 MG/24HR 1 patch Start: 08-21-2022 nicotine (VENTURA DERM CQ) 21 MG/24HR 1 patch Start: 03-01-2021 NICOTROL 10 MG inhaler Indications: Encounter for smoking cessation counseling INHALE 1 PUFF INTO THE LUNGS NEEDED FOR SMOKING CESSATION 1 each 3 03/01/2021 Active Start: 12-05-2020 NICOTROL 10 MG inhaler Indications: Encounter for smoking cessation counseling INHALE 1 PUFF INTO THE LUNGS NEEDED FOR SMOKING CESSATION 168 Inhaler 3 12/05/2020 Active Start: 07-08-2020 nicotine (VENTURA TROL) 10 MG inhaler Indications: Encounter for smoking cessation counseling Inhale 1 puff into the lungs as needed for Smoking cessation 1 Inhaler 3 07/08/2020 Active Start: 07-08-2020 apply 1 dose transde rmal route once daily nicotine (NICODERM CQ) 14 MG/24HR Indications: Tobacco use disorder Place 1 patch onto the skin daily 42 patch 0 07/08/2020 Active Start: 03-26-2019 End: 10-28-2020 apply 1 dose transdermal route every twenty-four hours nicotine (NICODERM CQ) 21 MG/24HR Indications: Encounter for smoking cessation counseling PLACE 1 PATCH ONTO THE SKIN EVERY 24 HOURS 28 patch 3 10/29/2019 10/28/2020 Active Nicotine 14 MG/2 4HR Transdermal Patch 24 Hour Quantity: 0 Refills: 0 Ordered: 25-Aug-2020 DO Active Nicotine Quantit y: 0 Refills: 0 Ordered: 20-Oct-2020 Radha Holman Status: Discontinued Generic Substitution Allowed nitrofurantoin 5 mg/ml oral suspension (5 sources) Nitrofuran Antibacterial Start: 06-19-2019 End: 06-29-2019 take 10 mL by mouth four times daily nitrofurantoin (FURADANTIN) 25 MG/5ML suspension Take 10 mLs by mouth 4 times daily for 10 days 400 mL 0 06/19/2019 06/29/2019 Active Start: 10-14-2018 take 1 capsule by [facility] twice daily nitrofurantoin (MACRODANTIN) 100 MG capsule Indications: Urinary tract infection without hematuria, site unspecified TAKE 1 CAPSULE BY MOUTH 2 TIMES DAILY FOR 10 DAYS 20 capsule 0 10/14/2018 Active nystatin 100 unt/mg topical powder (20 sources) Polyene Antifungal Start: 11-06-2024 Nystatin (N ystop) 100,000 unit/gram powder Active 1 NMA TOPICAL DAILY November 06, 2024 12:00am Start: 02-06-2023 nystatin (MYCO STATIN) powder Indications: Intertriginous candidiasis Apply 1 Application topically in the morning and 1 Application before bedtime. Apply to affected areas.. 15 g 02/06/2023 Active Start: 10-27-2020 End: 11-07-2020 take 5 mL by mouth every eight hours nystatin 100,000 units/mL oral suspension ; 5 milliliter(s) orally every 8 hours Quantity: 200 Refills: 0 Ordered: 27-Oct-2020 Nicole Deleon Start: 27-Oct-2020 End: 07-Nov-2020 Generic Substitution Allowed Comments: Finish all this medication unless otherwise directed by prescriber.Shake well before use. Comment on above: Finish all this medi cation unless otherwise directed by prescriber.Shake well before use. omeprazole (PRILOSEC) 2 MG/ML SUSP 2 mg/mL oral suspension (2 sources) Start: End: take 10 mL by mouth once daily omeprazole (PRILOSEC) 2 MG/ML SUSP 2 mg/mL oral suspension Indications: Gastroesophageal reflux disease without esophagitis Take 10 mLs by mouth Daily 300 mL 0 03/26/2019 04/25/2019 Active ondansetron 4 mg disintegrating oral tablet (15 sources) Serotonin-3 Receptor Antagonist Start: End: take 1 tablet by mouth every eight hours as needed for nausea ondansetron (ZOFRAN ODT) 4 MG disintegrating tablet Take 1 tablet by mouth every 8 hours as needed for Nausea 20 tablet 0 09/29/2020 Active Start: 12-01-2019 End: 12-01-2019 ondansetron (ZOFRAN) injecti on 4 mg ondansetron (ZOFRAN-ODT) disintegrating tablet 4 mg (2 sources) Start: 08-24-2022 ondansetron (Z OFRAN-ODT) disintegrating tablet 4 mg Start: 08-21-2022 ondansetron (Z OFRAN-ODT) disintegrating tablet 4 mg 1.75 ml paliperidone palmitate 312 mg/ml prefilled syringe (20 sources) Atypical Antipsychotic Start: 11-01-2020 INVEGA TRINZA 546 mg/1.75 mL syringe injection Inject 1.75 mL (546 mg total) into the appropriate muscle every 3 (three) months. 11/01/2020 Active inject 410 mg by int ramuscular injection every three months paliperidone palmitate (INVEGA SUSTENNA) 234 MG/1.5ML SUSP IM injection Inject 410 mg into the muscle once Every 3 months 0 Active inject 410 mg by int ramuscular injection once paliperidone palmitate (INVEGA SUSTENNA) 234 MG/1.5ML SUSP IM injection Inject 410 mg into the muscle once 0 Active paliperidone palmitate (INVEGA SUSTENNA) 234 MG/1.5ML SUSP IM injection (3 sources) inject 410 mg by intramuscular injection every three months paliperidone palmitate (INVEGA SUSTENNA) 234 MG/1.5ML SUSP IM injection Inject 410 mg into the muscle once Every 3 months 0 Suspended inject 410 mg by int ramuscular injection every three months paliperidone palmitate (INVEGA SUSTENNA) 234 MG/1.5ML SUSP IM injection Inject 410 mg into the muscle once Every 3 months 0 Active pantoprazole 40 mg delayed release oral tablet (20 sources) Proton Pump Inhibitor Start: 11-14-2022 take 1 tablet by mouth once daily pantoprazole (PROTONIX) 40 mg EC tablet TAKE 1 TABLET BY MOUTH EVERY DAY 90 tablet 11/14/2022 Active Start: 08-24-2022 take 40 mg by mouth once daily 40 mg, Oral, DAILY, First dose on Sat08/24/22 at 1930, Until Discontinued Do not crush or break. Start: 08-22-2022 take 40 mg by mouth once daily 40 mg, Oral, DAILY, First dose on Sat08/22/22 at 1145, Until Discontinued Do not crush or break. Start: 10-27-2020 End: 04-30-2021 take 1 tablet by mouth once daily Pantoprazole Sodium 40 MG Oral Tablet Delayed Release TAKE 1 TABLET DAILY. Quantity: 90 Refills: 2 Ordered: 10-Nov-2020 Mahesh Mcknight MD Start : 10-Nov-2020 Active Comment on above: It is very important that you take or use this exactly as directed. Do not skip doses or discontinue unless directed by your doctor.Obtain medical advice before taking any non-prescription drugs as some may affect the action of this medication.Swallow whole. Do not crush. penicillin v potassium 50 mg/ml oral solution (4 sources) Start: 01-20-20 End: 01-27-20 20 take 10 mL by mouth four times daily penicillin v potassium (VEETID) 250 MG/5ML suspension Take 10 mLs by mouth 4 times daily for 7 days 280 mL 0 01/20/2020 01/27/2020 Active Start: 11-02-2019 End: 11-02-2019 penicillin v potassium (VEET ID) 250 MG/5ML suspension 500 mg Start: 11-02-2019 End: 11-12-2019 take 10 mL by mouth four times daily penicillin v potassium (VEETID) 250 MG/5ML suspension Take 10 mLs by mouth 4 times daily for 10 days 1 Bottle 1 11/02/2019 11/12/2019 Active petrolatum 610 mg/ml topical cream (4 sources) Start: 08-23-2022 Skin Protectan ts, Misc. (HYDROCERIN) CREA cream Apply topically 2 times daily 228 g 0 08/23/2022 Active Start: 08-22-2022 Hydrocerin cre am CREA Potassium Chloride (20 sources) Start: 08-21-2022 potassium chlo ride (KLOR-CON M) extended release tablet 40 mEq Start: 10-04-2021 potassium chlo ride (KAYCIEL) 20 mEq/15 mL solution Take 15 mL (20 mEq total) by mouth in the morning. 473 mL 3 10/04/2021 Active Start: 09-29-2020 potassium chlo ride 20 MEQ/15ML (10%) oral solution 40 mEq Start: 08-20-2020 take 15 mL by mouth once daily potassium chloride 20 MEQ/15ML (10%) oral solution Indications: Hypokalemia TAKE 15 MLS BY MOUTH DAILY 900 mL 0 09/30/2020 Active Start: 02-29-2020 take 15 mL by mouth once daily potassium chloride 20 MEQ/15ML (10%) oral solution Indications: Hypokalemia Take 15 mLs by mouth daily 900 mL 0 02/29/2020 Active Promethazine (3 sources) Phenothiazine Start: 03-11-2020 promethazine ( PHENERGAN) tablet 12.5 mg Start: 12-02-2019 End: 12-02-2019 promethazine (PHENERGAN) inj ection 25 mg Start: 11-28-2019 End: 11-28-2019 promethazine (PHENERGAN) inj ection 25 mg topiramate 25 mg oral tablet (3 sources) Start: 10-15-2024 take 1 tablet by mouth once daily Topiramate (Topamax) 25 mg tablet Active 25 mg PO daily October 15, 2024 12:00am TPN (1 source) Start: 10-27-2020 TPN ; K22.0; K 20.9 Quantity: 1 Refills: 0 Ordered: 27-Oct-2020 Nicole Deleon Start: 27-Oct-2020 Status: Discontinued Generic Substitution Allowed ubrogepant 100 mg oral tablet (3 sources) Start: 10-15-2024 take 1 tablet by mouth once Ubrogepant 100 mg tablet Active 100 mg PO ONCE October 15, 2024 12:00am as a single dose; may repeat once in >=2 hours after first dose if needed vitamin b 12 1 mg oral tablet (2 sources) Vitamin B12 Start: 07-14-2018 vitamin B-12 (CYANOCOBALAMIN) 1000 MCG tablet ZOLMitriptan 5 mg oral tablet (20 sources) Serotonin-1b and Serotonin-1d Receptor Agonist Start: 12-02-2024 take 1 tablet by mouth every two hours Zolmitriptan 5 mg tablet Active 0 PO .COMPLEX December 02, 2024 12:00am take 1 tab at onset of headache; if no relief, may repeat 1 tab after at least 2 hrs; max = 2 tabs/24 hrs PO Start: 11-06-2024 take 1 tablet by brooks th every four hours as needed for headache Zolmitriptan 5 mg tablet,disintegrating Active 5 mg PO EVERY 4 HOURS NEEDED as needed for migraine headache November 06, 2024 12:00am Start: 01-20-2020 take 1 tablet by brooks th once as needed ZOLMitriptan (ZOMIG) 5 mg tablet Indications: Migraine without aura and without status migrainosus, not intractable Take 1 tablet (5 mg total) by mouth once as needed for migraine for up to 54 doses. May repeat in 2 hours if unresolved. Do not exceed 10 mg in 24 hours. 9 tablet 5 01/08/2023 Active Completed/Discontinued Medications Medication Drug Class(es) Dates Sig (Normalized) Sig (Original) acetaminophen 325 mg / HYDROcodone bitartrate 5 mg oral tablet (1 source) Opioid Agonist Start: 08-30-2021 End: 08-30-2021 HYDROcodone-acetam inophen (NORCO) 5-325 MG per tablet 1 tablet Start: 08-30-2021 End: 08-30-2021 HYDROcodone-acetaminophen (N ORCO) 5-325 MG per tablet 1 tablet amoxicillin 500 mg / clavulanate 125 mg oral tablet (6 sources) Penicillin-class Antibacterial Start: 08-23-2022 End: 09-02-2022 take 1 tablet by mouth every eight hours, then take 1 tablet by mouth three times daily 1 tablet, Oral, EVERY 8 HOURS SCHEDULED (3 times per day), First dose on Sat08/24/22 at 2200, Until Discontinued Antimicrobial Indications: Skin and Soft Tissue Infection Skin duration of therapy: 5 days Start: 08-23-2022 End: 08-30-2022 amoxicillin-clavulanate (AUG MENTIN) 500-125 MG per tablet 1 tablet Start: 02-25-2020 End: 02-26-2020 take 1 tablet by mouth twice daily amoxicillin-clavulanate (AUGMENTIN) 875-125 MG per tablet Indications: Acute bacterial sinusitis Take 1 tablet by mouth 2 times daily for 5 days 10 tablet 0 02/25/2020 02/26/2020 Discontinued (LIST CLEANUP) Start: 06-17-2019 End: 06-22-2019 take 10 mL by mouth twice daily amoxicillin-clavulanate (AUGMENTIN) 250-62.5 MG/5ML suspension Indications: Dysuria Take 10 mLs by mouth 2 times daily for 5 days 100 mL 0 06/17/2019 06/22/2019 Active atorvastatin 20 mg oral tablet (20 sources) HMG-CoA Reductase Inhibitor Start: 08-22-2022 take 40 mg by mouth once daily 40 mg, Oral, NIGHTLY, First dose on Sat08/22/22 at 2100, Until Discontinued Start: 04-14-2019 take 1 tablet by brooks th in the morning atorvastatin (LIPITOR) 20 mg tablet Indications: Mixed hyperlipidemia Take 1 tablet (20 mg total) by mouth in the morning. 90 tablet 3 07/19/2022 Active Atorvastatin Marquise cium 20 MG Oral Tablet Quantity: 0 Refills: 0 Ordered: 25-Aug-2020 DO Active Atorvastatin Marquise cium Quantity: 0 Refills: 0 Ordered: 20-Oct-2020 Radha Holman Generic Substitution Allowed azithromycin 250 mg oral tablet (14 sources) Macrolide Antimicrobial Start: 02-25-2020 End: 08-23-2022 take 1 tablet by mouth once daily azithromycin (ZITHROMAX) 250 MG tablet Take 250 mg by mouth daily 0 02/25/2020 08/23/2022 Discontinued (Stop Taking at Discharge) barium sulfate 98 % suspension 100 mL (1 source) Start: 06-23-2019 End: 06-23-2019 barium sulfate 98 % suspension 100 mL 60 actuat budesonide 0.08 mg/actuat / formoterol fumarate 0.0045 mg/actuat metered dose inhaler (2 sources) Corticosteroid, beta2-Adrenergic Agonist Start: 08-25-2022 take 2 puff(s) by inhalation twice daily 2 puff, Inhalation, 2 TIMES DAILY, First dose on 08/25/22 at 1300, Until Discontinued Substituted for Fluticasone-Salme terol (ADVAIR HFA) Start: 08-22-2022 take 2 puff(s) by in halation twice daily 2 puff, Inhalation, 2 TIMES DAILY, First dose on Sat08/22/22 at 1145, Until Discontinued Substituted for Fluticasone-Salmeterol (ADVAIR HFA) 24 hr buPROPion hydrochloride 150 mg extended release oral tablet (6 sources) Aminoketone Start: 08-23-2022 take 150 mg by mouth once daily in the morning 150 mg, Oral, EVERY MORNING, First dose on 08/25/22 at 0900, Until Discontinued Do not crush or break. Start: 08-21-2022 End: 08-22-2022 buPROPion (WELLBUTRIN SR) ex tended release tablet 150 mg cefdinir 300 mg oral capsule (1 source) Cephalosporin Antibacterial Start: 08-21-2022 End: 08-23-2022 take 1 capsule by mouth twice daily cefdinir (OMNICEF) 300 MG capsule Take 300 mg by mouth 2 times daily 0 08/21/2022 08/23/2022 Discontinued (Stop Taking at Discharge) cefTRIAXone (Rocephin) 1,000 mg in sodium chloride 0.9 % 50 mL IVPB Mini-Bag Plus (2 sources) Start: 05-10-2024 End: 05-10-2024 1,000 mg, IntraVENous, at 100 mL/hr, Administer over 30 Minutes, Once, On 05/10/24 at 1325, For 1 dose, Mini-Bag Plus bag, Suspected Indication (Select all that apply): Urinary Tract Infection cefTRIAXone (ROCEPHIN) 1,000 mg in sterile water 10 mL IV syringe (1 source) Start: 08-22-2022 End: 08-22-2022 take 100 mg intravenously every twenty-four hours 1,000 mg, IntraVENous, EVERY 24 HOURS, 7 doses, First dose on Sat08/22/22 at 0300, Last dose on Sat08/28/22 at 0300 Antimicrobial Indications: Skin and Soft Tissue Infection Skin duration of therapy: 7 days Administer as slow IV Push over 5 mins Re constitute 1 g vials with 9.6 mL of designated diluent to produce a 100 mg/mL solution. cefTRIAXone (ROCEPHIN) 2,000 mg in sodium chloride 0.9 % 50 mL IVPB (mini-bag) (1 source) Start: 08-21-2022 End: 08-21-2022 cefTRIAXone (ROCEPHIN) 2,000 mg in sodium chloride 0.9 % 50 mL IVPB (mini-bag) cephalexin 500 mg oral capsule (4 sources) Cephalosporin Antibacterial Start: 11-02-2024 End: 12-02-2024 take 1 capsule by mouth three times daily Cephalexin 500 mg capsule Discontinued 500 mg PO THREE TIMES A DAY November 06, 2024 12:00am December 02, 2024 10:54am cholecalciferol 0.125 mg oral tablet (3 sources) Vitamin D Start: 11-06-2024 End: 12-02-2024 take 1 tablet by mouth once daily Cholecalciferol (Vitamin D3) (Vitamin D3) 125 mcg (5,000 unit) tablet Discontinued 5000 U PO DAILY November 06, 2024 12:00am December 02, 2024 10:53am cholecalciferol 9.52 unt/ml / glucose 357 mg/ml oral gel (2 sources) Vitamin D Start: 05-10-2024 End: 05-13-2024 diclofenac sodium 0.01 mg/mg topical gel (3 sources) Nonsteroidal Anti-inflammatory Drug Start: 11-06-2024 End: 12-02-2024 Diclofenac Sodium 1 % gel Discontinued 4.5 [in_us] TOPICAL TWICE A DAY November 06, 2024 12:00am December 02, 2024 10:53am 1 ml diphenhydrAMINE hydrochloride 50 mg/ml cartridge (5 sources) Histamine-1 Receptor Antagonist Start: 12-02-2019 End: 12-02-2019 diphenhydrAMINE (BENADRYL) injection 25 mg Start: 11-28-2019 End: 11-28-2019 diphenhydrAMINE (BENADRYL) t ablet 25 mg take 1 capsule by [facility] every four hours as needed diphenhydrAMINE (BENADRYL) 25 MG capsule Take 25 mg by mouth every 4 hours as needed for Itching 0 Active 0.5 ml dulaglutide 3 mg/ml auto-injector (6 sources) GLP-1 Receptor Agonist Start: 10-15-2024 End: 12-02-2024 Dulaglutide (Trulicity) 1.5 mg/0.5 mL pen injector Discontinued 1.5 mg SC EVERY WEEK October 15, 2024 12:00am December 02, 2024 10:53am Start: 10-15-2024 End: 12-02-2024 Dulaglutide (Trulicity) 3 mg /0.5 mL pen injector Discontinued 3 mg SC EVERY WEEK October 15, 2024 12:00am December 02, 2024 10:54am Start: 10-15-2024 Dulaglutide (T rulicity) 3 mg/0.5 mL pen injector Active 3 mg SC EVERY WEEK October 15, 2024 12:00am enoxaparin (LOVENOX) 180 mg injection (1 source) Start: 08-21-2022 End: 08-21-2022 enoxaparin (LOVENOX) 180 mg injection furosemide 20 mg oral tablet (20 sources) Loop Diuretic Start: 10-15-2024 End: 12-02-2024 take 1 tablet by mouth once daily in the morning Furosemide (Lasix) 20 mg tablet Discontinued 20 mg PO EVERY MORNING October 15, 2024 12:00am December 02, 2024 10:54am Start: 08-21-2022 End: 08-22-2022 furosemide (LASIX) tablet 40 mg Start: 01-20-2021 take 1 tablet by brooks th twice daily furosemide (LASIX) 20 mg tablet Take 1 tablet (20 mg total) by mouth 2 (two) times a day. 180 tablet 3 11/16/2021 Active glucagon (rdna) 1 mg injecti on (3 sources) Antihypoglycemic Agent Start: 05-10-2024 End: 05-13-2024 Start: 08-21-2022 glucagon (rDNA ) injection 1 mg 150 ml glucose 50 mg/ml inje ction (7 sources) Start: 05-10-2024 End: 05-13-2024 Start: 05-10-2024 End: 05-13-2024 Start: 08-21-2022 dextrose 10 % infusion Start: 08-21-2022 dextrose bolus 10% 125 mL Start: 08-21-2022 glucose chewab le tablet 16 g haloperidol 2 mg oral tablet (20 sources) Typical Antipsychotic Haloperido l 2 MG Oral Tablet Quantity: 0 Refills: 0 Ordered: 25-Aug-2020 DO Active take 4 mL by mouth twice daily h aloperidol (HALDOL) 2 MG/ML solution Take 6 mg by mouth 2 times daily Take 4 mLs by mouth twice a day 0 Active Haloperidol Petr tity: 0 Refills: 0 Ordered: 20-Oct-2020 Radha Holman Status: Discontinued Generic Substitution Allowed ibuprofen 400 mg oral tablet (20 sources) Nonsteroidal Anti-inflammatory Drug Start: 09-01-2022 End: 09-01-2022 ibuprofen (ADVIL;MOTRIN) tablet 400 mg Start: 09-08-2021 End: 08-23-2022 take 1.5 tablets by mouth every eight hours as needed for pain ibuprofen (IBU) 400 MG tablet Take 1.5 tablets by mouth every 8 hours as needed for Pain 15 tablet 0 09/08/2021 08/23/2022 Discontinued (Stop Taking at Discharge) Start: 01-20-2020 take 30 mL by mouth every six hours as needed for fever ibuprofen (CHILDRENS ADVIL) 100 MG/5ML suspension Take 30 mLs by mouth every 6 hours as needed for Fever 473 mL 1 01/20/2020 Active Start: 01-20-2020 End: 01-20-2020 take 1 tablet by mouth every six hours as needed for pain ibuprofen (ADVIL;MOTRIN) 600 MG tablet Take 1 tablet by mouth every 6 hours as needed for Pain 15 tablet 0 01/20/2020 01/20/2020 Discontinued (Therapy completed) ibuprofen (MOTRI N) 400 mg tablet Active Insulin Lispro (Humalog) injection 0-12 Units (2 sources) Start: 05-10-2024 End: 05-13-2024 Insulin Lispro (Humalog) injection 0-12 Units 1 ml ketorolac tromethamine 30 mg/ml cartridge (5 sources) Nonsteroidal Anti-inflammatory Drug, Cyclooxygenase Inhibitor Start: 09-08-2021 End: 09-08-2021 ketorolac (TORADOL) injection 30 mg Start: 08-30-2021 End: 08-30-2021 ketorolac (TORADOL) injectio n 30 mg Start: 01-20-2020 End: 01-20-2020 ketorolac (TORADOL) injectio n 30 mg Start: 12-02-2019 End: 12-02-2019 ketorolac (TORADOL) injectio n 30 mg Start: 11-28-2019 End: 11-28-2019 ketorolac (TORADOL) injectio n 30 mg melatonin 3 mg oral tablet (20 sources) Start: 05-10-2024 End: 05-13-2024 melatonin 3 MG T ABS tablet Take 10 mg by mouth See Admin Instructions Take 1-2 tablets by mouth at night as needed for sleep 0 Active midodrine hydrochloride 5 mg oral tablet (20 sources) alpha-Adrenergic Agonist Start: 08-25-2022 5 mg, Oral, DAILY, First dose on 08/25/22 at 1300, Until Discontinued Do not give after 1800 or within 4 hrs of bedtime. Start: 11-16-2021 take 1 tablet by brooks once daily midodrine (PROAMATINE) 5 mg tablet Take 1 tablet (5 mg total) by mouth daily. 90 tablet 3 11/16/2021 Active ondansetron ODT (Zofran-ODT) disintegrating tablet 4 mg (2 sources) Start: 05-10-2024 End: 05-13-2024 take 1 tablet by mouth every eight hours as needed for nausea and vomiting ondansetron ODT (Zofran-ODT) disintegrating tablet 4 mg 24 hr oxybutynin chloride 10 mg extended release oral tablet (20 sources) Cholinergic Muscarinic Antagonist Start: 08-22-2022 take 10 mg by mouth once daily 10 mg, Oral, NIGHTLY, First dose on Sat08/22/22 at 2100, Until Discontinued Do not crush or break. Start: 04-14-2019 oxybutynin (DI TROPAN-XL) 5 MG extended release tablet 10 mg 11 04/14/2019 Active Start: 04-14-2019 oxybutynin (DI TROPAN-XL) 5 MG extended release tablet Oxybutynin Chlor no 5 MG Oral Tablet Quantity: 0 Refills: 0 Ordered: 25-Aug-2020 DO Active Oxybutynin Chlor no Quantity: 0 Refills: 0 Ordered: 20-Oct-2020 Holman Radha A Generic Substitution Allowed polyethylene glycol 3350 51223 mg powder for oral solution (4 sources) Osmotic Laxative Start: 05-10-2024 End: 05-13-2024 take 17 g by mouth every twenty-four hours as needed for constipation Start: 08-24-2022 17 g, Oral, DA JEN PRN, Starting on Sat08/24/22 at 1901, Until Discontinued, Constipation First line therapy for constipation Start: 08-21-2022 17 g, Oral, DA JEN PRN, Starting on Sat08/21/22 at 0340, Until Discontinued, Constipation First line therapy for constipation pregabalin 75 mg oral capsule (3 sources) Start: 11-06-2024 End: 12-02-2024 take 1 capsule by mouth at bedtime Pregabalin (Lyrica) 75 mg capsule Discontinued 75 mg PO AT BEDTIME November 06, 2024 12:00am December 02, 2024 10:51am psyllium 3400 mg powder for oral suspension (16 sources) Start: 10-21-2018 End: 02-26-2020 Psyllium (HM FIBER) 28.3 % POWD Indications: Constipation, unspecified constipation type MIX 2 TABLESPOONS IN 4-8 OZ OF COLD JUICE OR WATER AND DRINK SLOWLY 575 g 0 10/21/2018 02/26/2020 Discontinued (Cost of medication) 5 ml sodium chloride 9 mg/ml injection (14 sources) Start: 08-24-2022 take 1 dose intravenously twice daily 5-40 mL, IntraVENous, EVERY 12 HOURS SCHEDULED (2 times per day), First dose on Sat08/24/22 at 2100, Until Discontinued For Line Patency: Peripheral IV = 5 mL; Midline or Central Line = 10 mL/lumen. &nb sp;If following IV push medication, administer flush at same rate as the IV push. Flush volume is determined by type of infusion therapy being given. For non-viscous solutions use: Peripheral IV = 5 mL Midline or Central Line = 10 mL/lumen Fo r viscous solutions (i.e. blood components, parenteral nutrition, contrast media, or after obtaining blood sample) use: Peripheral IV = 10 mL Midline or Central Line = 20 mL/lumen Start: 08-24-2022 IntraVENous, a t 5-250 mL/hr, PRN, if patient receiving piggyback infusions and maintenance fluids are not ordered OR KVO fluids to protect IV site / prevent frequent line interruptions/ long duration, Starting on Sat08/24/22 at 1901 For piggyback infusion, administer at same rate as piggyback for a total of 25 mL. Enter 25 mL into dose field and piggyback rate into rate field of order. If piggyback is infusing at a rate less than 100 mL/hr, enter 25 mL into dose field and 100 mL/hr into rate field of order. For KVO fluids, enter rate of 20 mL/hr or less into rate field of order. Start: 08-24-2022 take 5-40 mL intrave nously once as needed 5-40 mL, IntraVENous, PRN, Starting on Sat08/24/22 at 1901, Until Discontinued, Line Care, After every IV line use For Line Patency: Peripheral IV = 5 mL; Midline or Central Line = 10 mL/lumen. If following IV push medication, administer flush at same rate as the IV push. Flush volume is determined by type of infusion therapy being given. For non-viscous solutions use: Peripheral IV = 5 mL Midline or Central Line = 10 mL/lumen For viscous solutions (i.e. blood components, parenteral nutrition, contrast media, or after obtaining blood sample) use: Peripheral IV = 10 mL Midline or Central Line = 20 mL/lumen Start: 08-21-2022 take 1 dose intraven ously twice daily 5-40 mL, IntraVENous, EVERY 12 HOURS SCHEDULED (2 times per day), First dose on Sat08/21/22 at 0900, Until Discontinued For Line Patency: Peripheral IV = 5 mL; Midline or Central Line = 10 mL/lumen. If following IV push medication, administer flush at same rate as the IV push. Flush volume is determined by type of infusion therapy being given. For non-viscous solutions use: Peripheral IV = 5 mL Midline or Central Line = 10 mL/lumen For viscous solutions (i.e. blood components, parenteral nutrition, contrast media, or after obtaining blood sample) use: Peripheral IV = 10 mL Midline or Central Line = 20 mL/lumen Start: 08-21-2022 IntraVENous, a t 5-250 mL/hr, PRN, if patient receiving piggyback infusions and maintenance fluids are not ordered OR KVO fluids to protect IV site / prevent frequent line interruptions/ long duration, Starting on Sat08/21/22 at 0340 For piggyback infusion, administer at same rate as piggyback for a total of 25 mL. Enter 25 mL into dose field and piggyback rate into rate field of order. If piggyback is infusing at a rate less than 100 mL/hr, enter 25 mL into dose field and 100 mL/hr into rate field of order. For KVO fluids, enter rate of 20 mL/hr or less into rate field of order. Start: 08-21-2022 take 10 mL intraveno usly once as needed 10 mL, IntraVENous, PRN, Starting on Sat08/21/22 at 0340, Until Discontinued, Line Care, After every IV line use Start: 09-29-2020 End: 09-29-2020 0.9 % sodium chloride bolus Start: 03-11-2020 sodium chlorid e flush 0.9 % injection 10 mL Start: 03-11-2020 sodium chlorid e flush 0.9 % injection 10 mL Start: 12-02-2019 End: 12-02-2019 0.9 % sodium chloride bolus Start: 12-01-2019 sodium chlorid e flush 0.9 % injection 10 mL Start: 12-01-2019 sodium chlorid e flush 0.9 % injection 10 mL Start: 08-27-2018 sodium chlorid e (ALTAMIST SPRAY) 0.65 % nasal spray 1 spray by Nasal route as needed for Congestion 1 Bottle 3 08/27/2018 Active divalproex sodium 125 mg delayed release oral capsule (6 sources) Mood Stabilizer, Anti-epileptic Agent Start: 08-24-2022 take 250 mg by mouth twice daily 250 mg, Oral, 2 TIMES DAILY, First dose on Sat08/24/22 at 2100, Until Discontinued Start: 08-22-2022 take 250 mg by mouth twice isabel ly 250 mg, Oral, 2 TIMES DAILY, First dose on Sat08/22/22 at 2100, Until Discontinued Start: 08-22-2022 End: 08-22-2022 divalproex (DEPAKOTE) DR tab let 250 mg take 2 capsules by m outh twice daily divalproex (DEPAKOTE SPRINKLE) [address] capsule Take 250 mg by mouth 2 times daily 0 Active vancomycin (VANCOCIN) 1500 m g in sodium chloride 0.9 % 250 mL IVPB (1 source) Start: 08-22-2022 End: 08-22-2022 vancomycin (VANCOCIN) 1500 m g in sodium chloride 0.9 % 250 mL IVPB vancomycin (VANCOCIN) 1750 m g in sodium chloride 0.9 % 500 mL IVPB (1 source) Start: 08-21-2022 End: 08-21-2022 vancomycin (VANCOCIN) 1750 m g in sodium chloride 0.9 % 500 mL IVPB Problems Active Problems Problem Classification Problem Date Documented Da te Episodic/Chronic Anxiety disorders (3 sources) Anxiety; Translations: [Anxiety disorder, unspecified] 10-15-2024 Chronic Asthma (20 sources) Asthma; Translations: [Unspecified asthma, uncomplicated] Onset: 4 03-03-2018 Chronic Attention-deficit conduct and disruptive behavior disorders (20 sources) Attention deficit hyperactivity disorder; Translations: [Attention-deficit hyperactivity disorder, unspecified type] Onset: 8 03-03-2018 Chronic Cataract (20 sources) Nuclear sclerotic cataract; Translations: [Age-related nuclear cataract, unspecified eye] Onset: 6 03-03-2018 Chronic Chronic obstructive pulmonary disease and bronchiectasis (20 sources) Chronic obstructive lung disease; Translations: [Simple chronic bronchitis] Onset: 4 03-03-2018 Chronic Conditions associated with dizziness or vertigo (5 sources) Dizziness; Translations: [Dizziness and giddiness] Onset: 3 Episodic Congestive heart failure; nonhypertensive (19 sources) Congestive heart failure; Translations: [Heart failure, unspecified] Onset: 2 10-04-2021 Chronic Developmental disorders (20 sources) Developmental academic disorder; Translations: [Developmental disorder of scholastic skills, unspecified] Onset: 4 03-03-2018 Chronic Diabetes mellitus with complications (20 sources) Diabetic polyneuropathy; Translations: [Type 2 diabetes mellitus with diabetic polyneuropathy] Onset: 3 03-03-2018 Chronic Diabetes mellitus without complication (20 sources) Type 2 diabetes mellitus without complication; Translations: [Type 2 diabetes mellitus without complications] Onset: 6 07-12-2015 Chronic Diabetes mellitus without complication (2 sources) Diabetes mellitus without complication 10-18-2020 Disorders of lipid metabolism (20 sources) Pure hyperglyceridemia; Translations: [Hyperlipidemia] Onset: 4 03-03-2018 Chronic Esophageal disorders (20 sources) Gastroesophageal reflux disease; Translations: [Gastro-esophageal reflux disease without esophagitis] Onset: 4 03-03-2018 Chronic Esophageal disorders (7 sources) Achalasia of esophagus; Translations: [Achalasia and cardiospasm] Onset: 5 10-25-2020 Episodic Comment on above: rYayo Mcknight at [facility] Essential hypertension (20 sources) Essential hypertension; Translations: [Essential (primary) hypertension] Onset: 4 03-03-2018 Chronic Fever of unknown origin (8 sources) Fever with chills; Translations: [Fever, unspecified] Onset: 4 05-10-2024 Episodic Fluid and electrolyte disorders (1 source) Dehydration; Translations: [Dehydration] Episodic Genitourinary symptoms and ill-defined conditions (20 sources) Mixed urinary incontinence; Translations: [Urinary incontinence] Onset: 4 Resolved: 0 03-03-2018 Chronic Headache; including migraine (20 sources) Migraine; Translations: [Refractory migraine without aura] Onset: 2 03-27-2017 Chronic Immunizations and screening for infectious disease (1 source) Observation and evaluation for suspected exposure to other biological agent; Translations: [COVID-19 ruled out by laboratory testing] Episodic Nausea and vomiting (3 sources) Vomiting without nausea; Translations: [Vomiting without nausea] Episodic Noninfectious gastroenteritis (1 source) Noninfective gastroenteritis and colitis, unspecified; Translations: [Noninfective gastroenteritis and colitis, unspecified] Onset: 5 Episodic Osteoarthritis (3 sources) Arthritis of right knee; Translations: [Unilateral primary osteoarthritis, right knee] Onset: 5 Chronic Other aftercare (1 source) Long-term current use of anticoagulant; Translations: [shelter (current) use of anticoagulants] Onset: 5 Episodic Other aftercare (1 source) shelter (current) use of anticoagulants; Translations: [shelter (current) use of anticoagulants] Onset: 5 Episodic Other and unspecified benign neoplasm (20 sources) Acoustic neuroma; Translations: [Benign neoplasm of cranial nerves] Onset: 7 03-27-2017 Chronic Other connective tissue disease (1 source) Other specified soft tissue disorders; Translations: [Other specified soft tissue disorders] Onset: 3 Episodic Other connective tissue disease (1 source) Pain in right lower limb; Translations: [Pain in right leg] Onset: 5 Episodic Other connective tissue disease (1 source) Pain in right leg; Translations: [Pain in right leg] Onset: 5 Episodic Other diseases of bladder and urethra (20 sources) Overactive bladder; Translations: [Overactive bladder] Onset: 6 07-12-2015 Chronic Other diseases of bladder and urethra (20 sources) Low compliance bladder; Translations: [Other neuromuscular dysfunction of bladder] Onset: 4 03-03-2018 Chronic Other ear and sense organ disorders (20 sources) Hearing loss; Translations: [Unspecified hearing loss, unspecified ear] Onset: 4 03-03-2018 Chronic Other gastrointestinal disorders (1 source) Difficulty swallowing fluid; Translations: [Dysphagia, unspecified] 10-18-2020 Episodic Other gastrointestinal disorders (1 source) Full incontinence of feces; Translations: [Full incontinence of feces] Onset: 5 Episodic Other lower respiratory disease (2 sources) Dyspnea; Translations: [Other respiratory abnormalities] 10-20-2020 Episodic Other lower respiratory disease (2 sources) Shortness of breath; Translations: [Shortness of breath] Onset: 4 Episodic Other nervous system disorders (1 source) H/O: brain disorder; Translations: [Personal history of other disorders of nervous system and sense organs] Episodic Other nutritional; endocrine; and metabolic disorders (20 sources) Obesity; Translations: [Obesity, unspecified] Onset: 4 03-03-2018 Chronic Other nutritional; endocrine; and metabolic disorders (20 sources) Morbid obesity; Translations: [Morbid (severe) obesity due to excess calories] Onset: 4 03-03-2018 Chronic Other nutritional; endocrine; and metabolic disorders (19 sources) Body mass index 40+ - severely obese; Translations: [Body mass index (BMI) 45.0-49.9, adult] Onset: 2 09-27-2021 Chronic Other nutritional; endocrine; and metabolic disorders (1 source) Adult failure to thrive; Translations: [Adult failure to thrive] Onset: 3 Episodic Other screening for suspected conditions (not mental disorders or infectious disease) (20 sources) Patient encounter status; Translations: [Encounter for screening for lipoid disorders] Onset: 8 Resolved: 0 04-24-2020 Episodic Otitis media and related conditions (1 source) Fluid level behind tympanic membrane; Translations: [Fluid level behind tympanic membrane of left ear] Episodic Paralysis (20 sources) Cerebral palsy; Translations: [Cerebral palsy, unspecified] Onset: 4 03-03-2018 Chronic Phlebitis; thrombophlebitis and thromboembolism (7 sources) Thromboembolism of vein; Translations: [Acute embolism and thrombosis of deep veins of right upper extremity] Onset: 3 Episodic Residual codes; unclassified (20 sources) Parasomnia; Translations: [Parasomnia, unspecified] Onset: 4 03-03-2018 Chronic Residual codes; unclassified (1 source) Tobacco user; Translations: [Tobacco use disorder] Onset: 4 07-08-2020 Chronic Residual codes; unclassified (1 source) Hypersomnia, unspecified; Translations: [Hypersomnia, unspecified] Onset: 5 Chronic Screening and history of mental health and substance abuse codes (1 source) Tobacco use and exposure - finding; Translations: [Personal history of tobacco use] Chronic Screening and history of mental health and substance abuse codes (1 source) Tobacco use and exposure - finding; Translations: [Personal history of nicotine dependence] Episodic Skin and subcutaneous tissue infections (20 sources) Boil of upper limb; Translations: [Furuncle of limb, unspecified] Onset: 8 Resolved: 0 07-04-2017 Episodic Substance-related disorders (20 sources) Tobacco dependence syndrome; Translations: [Tobacco user] Onset: 4 03-03-2018 Chronic Thyroid disorders (20 sources) Acquired hypothyroidism; Translations: [Hypothyroidism, unspecified] Onset: 6 07-12-2015 Chronic Unclassified (20 sources) Patient encounter status; Translations: [Screening for colon cancer] Onset: 8 Resolved: 0 05-22-2018 Unclassified (18 sources) Intellectual disability; Translations: [Intellectual disability] Onset: 8 11-17-2018 Unclassified (18 sources) Repeated prescription; Translations: [Medication refill] Onset: 8 04-22-2018 Unclassified (2 sources) POEM 10-21-2020 Comment on above: POEM Unclassified (1 source) Difficulty swallowing liquids 10-18-2020 Unclassified (1 source) Psychosis 10-20-2020 Past or Other Problems Problem Classification Problem Date Documented Da te Episodic/Chronic Administrative/social admission (20 sources) Repeated prescription; Translations: [Encounter for issue of repeat prescription] Onset: 8 04-22-2018 Episodic Blindness and vision defects (20 sources) Myopia; Translations: [Astigmatism] Onset: 6 03-03-2018 Episodic Cancer of bronchus; lung (19 sources) Malignant tumor of lung; Translations: [Malignant neoplasm of unspecified part of unspecified bronchus or lung] Onset: 3 Resolved: 3 10-18-2022 Chronic Deficiency and other anemia (20 sources) Megaloblastic anemia due to vitamin B>12< deficiency; Translations: [Other megaloblastic anemias, not elsewhere classified] Onset: 0 01-14-2020 Episodic Diabetes mellitus without complication (2 sources) Hyperglycemia, unspecified; Translations: [Hyperglycemia, unspecified] Onset: 3 Episodic Disorders of teeth and jaw (20 sources) Gingival and periodontal disease; Translations: [Toothache] Onset: 4 03-03-2018 Episodic E Codes: Natural/environment (19 sources) Bitten or stung by nonvenomous insect and other nonvenomous arthropods, initial encounter; Translations: [Insect bite, nonvenomous, of other, multiple, and unspecified sites, without mention of infection] Onset: 3 08-18-2022 Episodic Genitourinary symptoms and ill-defined conditions (1 source) Dysuria Episodic Headache; including migraine (1 source) Other headache syndrome; Translations: [Other headache syndrome] Onset: 2 Episodic Inflammation; infection of eye (except that caused by tuberculosis or sexually transmitteddisease) (20 sources) Hordeolum externum left lower eyelid; Translations: [Hordeolum externum of left lower eyelid] Onset: 7 Resolved: 0 05-03-2017 Episodic Mood disorders (19 sources) Mood disorders Onset: 3 01-08-2023 Other and unspecified benign neoplasm (20 sources) Benign neoplasm of cranial nerve; Translations: [Benign neoplasm of cranial nerves] Onset: 6 Resolved: 2 03-03-2018 Chronic Other circulatory disease (20 sources) Elevated blood-pressure reading without diagnosis of hypertension; Translations: [Elevated blood-pressure reading, without diagnosis of hypertension] Onset: 4 Resolved: 0 03-03-2018 Episodic Other connective tissue disease (5 sources) Swelling of lower limb; Translations: [Other specified soft tissue disorders] Onset: 3 Episodic Other disorders of stomach and duodenum (1 source) Indigestion Episodic Other gastrointestinal disorders (20 sources) Dysphagia; Translations: [Dysphagia, unspecified] Onset: 4 03-03-2018 Episodic Other gastrointestinal disorders (20 sources) Constipation; Translations: [Constipation, unspecified] Onset: 6 Resolved: 0 07-12-2015 Episodic Other gastrointestinal disorders (20 sources) Diarrhea; Translations: [Diarrhea, unspecified] Onset: 6 Resolved: 0 07-12-2015 Episodic Other gastrointestinal disorders (20 sources) Personal history of other diseases of the digestive system; Translations: [History of gastroesophageal reflux disease] Onset: 8 07-04-2017 Episodic Other gastrointestinal disorders (20 sources) Incontinence of feces; Translations: [Full incontinence of feces] Onset: 2 10-04-2021 Episodic Other infections; including parasitic (4 sources) Infestation by bed bug; Translations: [Other specified infestations] Onset: 3 Episodic Other inflammatory condition of skin (4 sources) Itching of skin; Translations: [Pruritus, unspecified] Onset: 3 Episodic Other injuries and conditions due to external causes (2 sources) Other injury of unspecified body region, subsequent encounter; Translations: [Other injury of unspecified body region, subsequent encounter] Onset: 3 Episodic Other nutritional; endocrine; and metabolic disorders (4 sources) Adult failure to thrive syndrome; Translations: [Adult failure to thrive] Onset: 3 Episodic Other upper respiratory infections (19 sources) Acute bacterial sinusitis; Translations: [Acute sinusitis, unspecified] Onset: 0 02-25-2020 Episodic Pneumonia (except that caused by tuberculosis or sexually transmitted disease) (20 sources) Pneumonia, unspecified organism; Translations: [Community acquired pneumonia] Onset: 3 Episodic Residual codes; unclassified (20 sources) Requires varicella vaccination; Translations: [Encounter for immunization] Onset: 8 12-29-2019 Episodic Residual codes; unclassified (20 sources) Family history of cancer of colon; Translations: [Family history of malignant neoplasm of digestive organs] Onset: 0 12-29-2019 Episodic Residual codes; unclassified (4 sources) Requires vaccination Onset: 8 04-22-2018 Episodic Residual codes; unclassified (3 sources) Unable to perform personal care activity; Translations: [Other specified health status] Onset: 3 Episodic Residual codes; unclassified (2 sources) Other specified health status; Translations: [Other specified health status] Onset: 4 Episodic Residual codes; unclassified (19 sources) Edema of lower extremity; Translations: [Localized edema] Onset: 3 08-18-2022 Episodic Residual codes; unclassified (9 sources) Requires vaccination; Translations: [Need for prophylactic vaccination against Streptococcus pneumoniae (pneumococcus)] Onset: 8 Resolved: 0 04-22-2018 Schizophrenia and other psychotic disorders (20 sources) Psychotic disorder; Translations: [Unspecified psychosis] Onset: 2 Resolved: 3 10-20-2020 Chronic Unclassified (1 source) SENT BY DOCTOR 10-21-2020 Comment on above: SENT BY DOCTOR Urinary tract infections (20 sources) Acute cystitis without hematuria; Translations: [Acute cystitis] Onset: 2 04-20-2022 Episodic Results Test Name Value Interpretation Reference Range Facility Gastroenterology Visit Repor [facility] 12-02-2024 Gastroenterology Visit Report [facility] [address] [place] [address] OFFICE VISIT Date of Service: 12/02/24 MR#: [id number] Acct: [id number] Name: BHARAT MANZANARES Rep #: [id number] : 1965 Provider: PADDY buitrago Age/Sex: 59/F Location: [facility] [place] Status: Signed Intake Vital Signs 11/06/24 07:19 12/02/24 11:13 Height 5 ft 6 in 5 ft 6 in BP 154/81 H Temp 97.5 F L Temp Source Temporal Pulse Oximetry (%) 95 Oxygen Delivery Method room air Intake Visit Reasons: Gastroesophageal reflux disease (GERD) Chief Complaint: fecal incontinence Medical Office Clerk Required: No Accompanied by: Caregiver Is patient in pain?: No Allergies No Known Allergies Allergy (Unverified 12/02/24 10:45) Medications ???Medication ???Instructions ???Recorded ???Confirmed ???Type apixaban 2.5 mg tablet 2.5 mg PO BID 10/15/24 12/02/24 Hi story dapagliflozin propanediol 10 mg 10 mg PO QAM 10/15/24 12/02/24 His tory tablet famotidine 20 mg tablet 20 mg PO QDAY 10/15/24 12/02/24 Hi story fluticasone propionate 50 1 spray intranasal QDAY 10/15/24 0 12/02/24 History mcg/actuation nasal spray,suspension (Flonase Allergy Relief) gabapentin 300 mg capsule 300 mg PO TID 10/15/24 12/02/24 Hi story insulin glargine 100 unit/mL (3 18 unit subcut QPM 10/15/24 History mL) subcutaneous pen (Lantus Solostar U-100 Insulin) insulin glargine 100 unit/mL 24 unit subcut QAM 10/15/24 History subcutaneous solution (Lantus U-100 Insulin) insulin lispro 100 unit/mL 1 sliding scale dose subcut 12/02/24 History subcutaneous pen (Humalog KwikPen USEASDIRECTD (U-100) Insulin) levothyroxine 137 mcg capsule 137 mcg PO QDAY 10/15/24 12/02/24 History mirabegron 50 mg tablet,extended 50 mg PO QDAY 10/15/24 12/02/24 Hi story release 24 hr (Myrbetriq) topiramate 25 mg tablet (Topamax) 25 mg PO QDAY 10/15/24 12/02/24 H istory ubrogepant 100 mg tablet 100 mg PO ONCE 10/15/24 12/02/24 H istory acetaminophen 325 mg capsule 650 mg PO Q4H PRN fever or pain 12/02/24 History nystatin 100,000 unit/gram topical 1 applic topical DAILY 11/06/24 12/02/24 History powder (Nystop) zolmitriptan 5 mg disintegrating 5 mg PO Q4H PRN PRN migraine 11/0612/02/24 History tablet headache cetirizine 10 mg capsule (Zyrtec) 10 mg PO QDAY PRN 12/02/24 History fluconazole 150 mg tablet 150 mg PO QDAY 12/02/24 12/02/24 H istory zolmitriptan 5 mg tablet See Rx Instructions PO .COMPLEX 12/02/24 History PFSH Medical History (Updated 12/02/24 @ 11:19 by Penny Sotelo NP-C) History of suicidal ideation Abscess or cellulitis of foot Achalasia of esophagus Overactive bladder GERD (gastroesophageal reflux disease) Hypothyroidism Schizophrenia HTN (hypertension) Polyarthritis Hyperlipidemia Dysphagia Heart failure Diabetes COPD (chronic obstructive pulmonary disease) Depression Anxiety Cerebral palsy Social History Smoking Status: Former smoker HPI HPI Chief Complaint: fecal incontinence Details: BHARAT MANZANARES, is a 59 F who presents to the office today for The patient is a 59-year-old female presenting with fecal incontinence. She reports having stool incontinence for several years, characterized by leakage of both loose and formed stools occurring daily, especially after consuming coffee and scrambled eggs. The patient denies any blood in the stool and has not experienced unexplained weight loss, although she has been on Trulicity for diabetes management for over a year. The patient has a history of diabetes mellitus, which she has had for several years. She is concerned about the potential impact of diabetes on her gastrointestinal symptoms, including the possibility of exocrine pancreatic insufficiency or pelvic floor dysfunction. The patient also reports a long-standing history of dysphagia, attributed to developmental issues from , and has undergone esophageal surgery in 2020 to address achalasia. She continues to experience swallowing difficulties, particularly with slippery foods, and is losing teeth, which further complicates her dietary intake. The patient is scheduled for dental surgery to address tooth loss, which will necessitate a liquid diet post-procedure. RESIDENT at [facility] - seen in office today with LINING FINISHER from care facility cerebral palsy - schitzophrenic - constipation - diarrhea - abdominal pain - bloating - HB - works with [facility] at [employer] due to difficulty swallowing - Dr. Mcknight at , achalasia, possible h/o POEMS COLONOSCOPY (Dr. Varela) 11/06/2024 for c/o diarrhea and fecal incontinence; TVA and hyperplastic polyp, (more content not included)... Normal [facility] Knee 1 or 2 Viewson 11-10-19 Knee 1 or 2 Views [facility] Imaging Services [address] [place] [address] Knee 1 or 2 Views MR#: [id number] Acct: [id number] Name: BHARAT MANZANARES Rep #: [id number] : 1965 F 59 From: Adan Gonzalez MD PCP: Ragini Lentz MD Status: REG CLI Study: Knee 1 or 2 Views Date of Exam: 11/09/24 Exam# [id number] Ordering Dr: Denilson Polanco MD PROCEDURE: KNEE 1 OR 2 VIEWS 11/09/2024 REASON FOR EXAM: OSTEOARTHRITIS TECHNIQUE: 2 views of each knee with weightbearing COMPARISON: None FINDINGS: No fracture or traumatic malalignment. Moderate to severe narrowing in the medial and patellofemoral compartments of the right knee, and mild in the left. Tricompartmental osteophyte formation, right knee greater than left. Trace right knee joint effusion. No significant left knee joint effusion. Soft tissues are unremarkable bilaterally. RAD/Knee 1 or 2 Views IMPRESSION: 1. Moderate to severe right and mild left knee osteoarthritis. 2. Trace right knee joint effusion. Reading Location: [facility] CC: Ragini Lentz MD; Dr. Denilson Polanco MD Special Events Assistant: Signed Normal [facility] Knee 1 or 2 Views [facility] Imaging Services [address] [place], [place] [address] Knee 1 or 2 Views MR#: [id number] Acct: [id number] Name: BHARAT MANZANARES Rep #: [id number] : 1965 F 59 From: Adan Gonzalez MD PCP: Ragini Lentz MD Status: REG CLI Study: Knee 1 or 2 Views Date of Exam: 11/09/24 Exam# [id number] Ordering Dr: Denilson Polanco MD PROCEDURE: KNEE 1 OR 2 VIEWS 11/09/2024 REASON FOR EXAM: OSTEOARTHRITIS TECHNIQUE: 2 views of each knee with weightbearing COMPARISON: None FINDINGS: No fracture or traumatic malalignment. Moderate to severe narrowing in the medial and patellofemoral compartments of the right knee, and mild in the left. Tricompartmental osteophyte formation, right knee greater than left. Trace right knee joint effusion. No significant left knee joint effusion. Soft tissues are unremarkable bilaterally. RAD/Knee 1 or 2 Views IMPRESSION: 1. Moderate to severe right and mild left knee osteoarthritis. 2. Trace right knee joint effusion. Reading Location: [facility] CC: Ragini Lentz MD; Dr. Denilson Polanco MD Special Events Assistant: Signed Normal [facility] Lumbar Spine 2 or 3 Viewson 11-09-2024 Lumbar Spine 2 or 3 Views [facility] Imaging Services [address] [place] [address] Lumbar Spine 2 or 3 Views MR#: [id number] Acct: [id number] Name: BHARAT MANZANARES Rep #: [id number] : 1965 F 59 From: Adan Gonzalez MD PCP: Ragini Lentz MD Status: REG CLI Study: Lumbar Spine 2 or 3 Views Date of Exam: Exam# [id number] Ordering Dr: Denilson Polanco MD PROCEDURE: LUMBAR SPINE 2 OR 3 VIEWS 11/09/2024 REASON FOR EXAM: SPONDYLOSIS WITHOUT MYELOPATHY OR RADICULOPATHY, LUMBAR REGION TECHNIQUE: 2 view(s) of the lumbar spine COMPARISON: None FINDINGS: Vertebral body heights and alignment are maintained. Multilevel endplate osteophyte formation with disc space narrowing and facet arthrosis, worst at L4-5 and L5-S1. Aortic atherosclerosis. Nonobstructive appearance of the visualized bowel gas. RAD/Lumbar Spine 2 or 3 Views IMPRESSION: Moderate multilevel degenerative changes of the lumbar spine, worst at L4-5 and L5-S1. Reading Location: [facility] CC: Ragini Lentz MD; Dr. Denilson Polanco MD Special Events Assistant: Signed Normal [facility] Bedside Glucoseon 11-06-2024 FINGERSTICK GLU 176 mg/dL High 74-106 [facility] Comment on above: Result Comment: MANINDER HERNADEZ OF PATIENT CARE PER NURSING PROTOCOL Performed By: #### L 501.080 #### [facility] [address] [place], [address] Colonoscopy Reporton 025 Colonoscopy Report [facility] Medical Records Department [address] [place] [address] Colonoscopy Report MR#: [id number] Acct: [id number] Name: BHARAT MANZANARES Rep #: [id number] : 1965 59 From: Johana Varela MD PCP: Ragini Lentz MD Status:REG [facility] Patient Name: Bharat Manzanares Procedure Date: 11/06/2024 7:39 AM Date of : 1965 Age: 59 Procedure: Colonoscopy Indications: Chronic diarrhea Providers: Johana Varela MD Medicines: Monitored Anesthesia Care Patient Profile: This is a 59 year old female. Refer to note in patient chart for documentation of history and physical. Last Colonoscopy: none. The patient's first colonoscopy is today. Complications: No immediate complications. Estimated blood loss: Minimal. Procedure: Pre-Anesthesia Assessment: - Prior to the procedure, a History and Physical was performed, and patient medications and allergies were reviewed. The patient's tolerance of previous anesthesia was also reviewed. The risks and benefits of the procedure and the sedation options and risks were discussed with the patient. All questions were answered, and informed consent was obtained. Prior Anticoagulants: The patient has taken Eliquis (apixaban), last dose was 3 days prior to procedure. ASA Grade Assessment: III - A patient with severe systemic disease. After reviewing the risks and benefits, the patient was deemed in satisfactory condition to undergo the procedure. After I obtained informed consent, the scope was passed under direct vision. Throughout the procedure, the patient's blood pressure, pulse, and oxygen saturations were monitored continuously. The colonoscope was introduced through the anus and advanced to the cecum, identified by appendiceal orifice and ileocecal valve. The ileocecal valve, appendiceal orifice, and rectum were photographed. The entire colon was well visualized. The colonoscopy was performed without difficulty. The patient tolerated the procedure well. The quality of the bowel preparation was adequate. Moderate Sedation: See the other procedure note for documentation of moderate sedation with intraservice time. Scope In: 8:28:58 AM Scope Withdrawal Time 0 hours 26 minutes 35 seconds Scope Out: 9:07:04 AM Total Procedure Duration Time 0 hours 38 minutes 6 seconds Findings: The perianal and digital rectal examinations were normal. Multiple small-mouthed diverticula were found in the sigmoid colon. Internal hemorrhoids were found during retroflexion. The hemorrhoids were mild. A 5 mm polyp was found in the cecum. The polyp was semi-pedunculated. The polyp was removed with a hot snare. Resection and retrieval were complete. Verification of patient identification for the specimen was done by the nurse using the patient's name, date and medical record number. Estimated blood loss was minimal. Three semi-pedunculated polyps were found in the sigmoid colon. The polyps were 3 to 4 mm in size. These polyps were removed with a hot snare. Resection and retrieval were complete. Verification of patient identification for the specimen was done by the nurse using the patient's name, date and medical record number. Estimated blood loss was minimal. The exam was otherwise without abnormality on direct and retroflexion views. Impression: - Diverticulosis in the sigmoid colon. - Internal hemorrhoids. - One 5 mm polyp in the cecum, removed with a hot snare. Resected and retrieved. - Three 3 to 4 mm polyps in the sigmoid colon, removed with a hot snare. Resected and retrieved. - The examination was otherwise normal on direct and retroflexion views. Recommendation: - Discharge patient to home (ambulatory). - High fiber diet. - Await pathology results. - Repeat colonoscopy in 5 years for surveillance. - Return to my office PRN. - Continue present medications. Procedure Code(s): --- Professional --- 26255, Colonoscopy, flexible; with removal of tumor(s), polyp(s), or other lesion(s) by snare technique Diagnosis Code(s): --- Professional --- K64.8, Other hemorrhoids D12.0, Benign neoplasm of cecum D12.5, Benign neoplasm of sigmoid colon K57.30, Diverticulosis of large intestine without perforation or abscess without bleeding K52.9, Noninfective gastroenteritis and colitis, unspecified CPT copyright 2021 [employer]. All rights reserved. The codes documented in this report are preliminary and upon green pipefitter review may be revised to meet current compliance requirements. Johana Varela MD 11/06/2024 9:30:39 AM This report has been signed electronically. Number of Addenda: 0 Note Initiated On: 11/06/2024 7:39 AM 11/06/24929 Date Johana Varela MD Cosigner Signature: Date __ (more content not included)... Normal [facility] deOrdered By: Johana Varela on 11-06-2024 Glucose [Mass/Vol] 176 mg/dL High 74-106 [facility] Comment on above: MANAGEMENT OF PATIEN T CARE PER NURSING PROTOCOL MR/POSTOP.ANEon 11-06-2024 MR/POSTOP.[facility] Medical Records Department [address] [place] [address] Anesthesia Postop Eval I 11/06/24920 MR#: [id number] Acct: [id number] Name: BHARAT MANZANARES Rep #: [id number] : 1965 59 From: Yael Marvin CRNA PCP: Ragini Lentz MD Status:REG SDC Y Race: C Location: [place] [address] Anesthesia: Postop Eval I Current Vital Signs Temperature: 97.1 F Pulse Rate: 73 Blood Pressure: 88/46 Respiratory Rate: 18 Pulse Ox: 93 Assessment Airway patent: Yes Spontaneous unlabored respirations: Yes nausea: No Vomiting: No Anesthesia Complication: No Fluid Hydration Crystalloid volume administer (ml): 300 Total IV fluid infused: 300 Progress Note Anesthesia document: Postop Eval 1 completed: Yes 11/06/24921 Date Yael Marvin 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 Signature: Date CC: Signed Normal [facility] MR/[id number] 11-06-2024 [facility] Medical Records Department [address] [place] [address] Anesthesia Postop Eval II 11/06/24 1342 MR#: [id number] Acct: [id number] Name: BHARAT MANZANARES Rep #: [id number] : 1965 59 From: Yael Marvin VOLCANOLOGY TEACHER PCP: Ragini Lentz MD Status:[facility] Y Race: C Location: EN Anesthesia Postop Eval I Sum Postop Eval Completion status Anesthesia document: Postop Eval 1 completed: Yes Anesthesia Postop Eval I Summary Anesthesia Postop Eval I Summary: Anesthesia Postop Eval I: Assessment Summary Airway patent Yes 11/06/24 09:21 VOLCANOLOGY TEACHER.CSIR Spontaneous unlabored Yes 11/06/24 09:21 VOLCANOLOGY TEACHER.CSIR respirations Mental status nausea No 11/06/24 09:21 VOLCANOLOGY TEACHER.CSIR Vomiting No 11/06/24 09:21 VOLCANOLOGY TEACHER.CSIR Anesthesia Postop Eval I: Fluid Summary Crystalloid volume administer 300 11/06/24 09:21 VOLCANOLOGY TEACHER.CSIR (ml) Colloids volume administered ( ml) Blood Product volume administered (ml) Total IV fluid infused 300 11/06/24 09:21 VOLCANOLOGY TEACHER.CSIR Anesthesia Postop Eval I: Summary Notes Anesthesia Complication No 11/06/24 09:21 VOLCANOLOGY TEACHER.CSIR Anesthesia Complication Comment: Post-operative progress note Anesthesia: Postop Eval II Evaluation Mental status: Awake Pain Level: 0 nausea: No Vomiting: No 11/06/24 1342 Date Yael Marvin CRNA Lory Signature: Date CC: Signed Normal [facility] Surgery Specimen Level Jelena 11-06-2024 Surgery Specimen Level IV Patient Age/Sex Location Account Attending Physician BHARAT MANZANARES 59/F EN [id number] Dr. Johana Varela MD Specimen: [id number] Received: 11/06/24 Status: STEFAN Mahan Num: [id number] Spec Type: COLON BX Subm Dr: Dr. Johana Varela MD HEADER OPERATION: Colonoscopy, polypectomy, biopsy PRE-OP DIAGNOSIS: Fecal incontinence and screening for malignant neoplasm TISSUE SUBMITTED: A- Cecal polyp, B- Random colon biopsy, C- Sigmoid polyps MICROSCOPIC DIAGNOSIS A. Colon, cecum, polyp, biopsy: Tubulovillous adenoma, multiple fragments. B. Colon, random, biopsy: Colonic mucosa with no specific pathologic change. The histologic features of microscopic colitis are not demonstrated. C. Sigmoid colon, polyp, biopsy: Hyperplastic polyp, multiple fragments. MICROSCOPIC DESCRIPTION Slides are reviewed. GROSS DESCRIPTION A. Received in formalin in a container labeled with the patient's name, date of , and cecal polyp are 2 mejia-pink and polypoid pieces of mucosal tissue measuring 0.5 x 0.4 x 0.3 cm and 0.6 x 0.5 x 0.4 cm. No distinct resection margin is identified. The largest fragment is bisected. Submitted entirely in A1. B. Received in formalin in a container labeled with the patient's name, date of , and random colon biopsies are multiple mejia-pink fragments of mucosal tissue measuring 1.5 x 0.9 x 0.3 cm in aggregate. Submitted in toto in B1. C. Received in formalin in a container labeled with the patient's name, date of , and sigmoid polyps are multiple mejia-pink fragments of mucosal tissue measuring 1.1 x 0.5 x 0.3 cm in aggregate. Submitted in toto in C1. [facility] 11-06-2024 [facility]:[id number] Patient Age/Sex Location Account Attending Physician BHARAT MANZANARES 59/F EN [id number] Dr. Johana Varela MD Signed (signature on file) Dr. Dari Parrish MD 11/11/24 1342 Normal [facility] Comment on above: Performed By: #### P DELMERIV #### [facility] [place], [place], [address] Surgery Visit Reporton 10-15 Surgery Visit Report [facility] [address] [place] [address] OFFICE VISIT Date of Service: 10/15/24 MR#: [id number] Acct: [id number] Name: Bharat Manzanares Rep #: [id number] : 1965 Provider: Dr. Johana alcaraz MD Age/Sex: 59/F [facility] Status: Signed Intake Vital Signs 10/15/24 13:33 BP 139/79 H Blood Pressure Location Lt radial Position Sitting Respiration 18 Pulse 70 Pulse Source Monitor Pulse Oximetry (%) 90 Oxygen Delivery Method room air Intake Visit Reasons: COLONOSCOPY Allergies No Known Allergies Allergy (Unverified 10/15/24 13:34) [facility] Medical History Overactive bladder GERD (gastroesophageal reflux disease) Hypothyroidism Schizophrenia HTN (hypertension) Polyarthritis Hyperlipidemia Dysphagia Heart failure Diabetes COPD (chronic obstructive pulmonary disease) Depression Anxiety Cerebral palsy Social History Smoking Status: Former smoker HPI HPI HPI: The patient is a 59-year-old female who is being seen today to schedule a colonoscopy. She states that she has been having diarrhea for many many years. She resides in a local [facility]. The treating physician has advised her to get a colonoscopy. She believes that his sister had colon polyps. No family history of colon cancer. She denies any blood or tarry stools ROS General General: Yes weakness; No weight change, appetite, fatigue, colon cancer or breast cancer HEENT HEENT: Yes difficulty swallowing; No eye injury, eye surgery, swollen glands or hoarseness Endo Endocrine: Yes diabetes mellitus and thyroid cancer; No thyroid disease, Hair loss, heat intolerance or cold intolerance Skin Skin: No rash or changing moles Musc Musculoskeletal: Yes arthritis; No back problems, rheumatoid arthritis, gout or joint pain Cardio Cardiovascular: Yes heart disease and high blood pressure; No murmur, pacemaker, atrial fibrillation, heart attack, heart stent, palpitations, shortness of breath with exertion or chest pain Psych Psychiatric: Yes depression and anxiety; No hearing voices Additional Details: schizophrenia Resp Respiratory: No shortness of breath, No sleep apnea, No cough, No COPD, No asthma, No emphysema and No wheezing Gastro Gastrointestinal: No abdominal pain, No nausea or vomiting, No diarrhea, No constipation, No blood in stool, Yes acid reflux, No hemorrhoids, No ulcers, No gallbladder problem and No black,tarry stools Additional Details: stool incontinence Zachery Hematologic: No blood thinners, No blood disorders, No bleeding, No anemia and No blood clots Neuro Neurologic: No system reviewed and no additional complaints, except as documented, No as per HPI, No abnormal gait, No abnormal hearing, No abnormal movements, No abnormal speech, No behavioral changes, No burning sensations, No confusion, No convulsions, No disequilibrium, No dizziness, No localized weakness, No frequent falls, No headache(s), No lack of coordination, No loss of vision, No memory loss, No numbness, No other visual disturbances, No radicular pain, No restless legs, No sensory deficit, No syncope, No tingling, No tremor(s), Yes weakness and No other Exam Const General: cooperative and comfortable HENMT Head: normal to inspection Eyes General: appearance normal, both eyes and all related structures Neck Neck: normal visual inspection Resp Effort Inspection: normal respiratory effort GI Inspection: normal to inspection Assessment and Plan Assessment and Plan (1) Encounter for screening for malignant neoplasm of colon: Status: Acute (2) Stool incontinence: Status: Acute Plan: The patient is a 59-year-old female who presents today with issues with chronic diarrhea and incontinence at times. She was advised to undergo colonoscopy. She has never had a previous colonoscopy. We discussed the details of the planned procedure and she wishes to proceed. This will be scheduled in a timely manner Coding Level of Care Code Off vis,new,level 3 Diagnoses Encounter for screening for malignant neoplasm of colon Z12.11 Stool incontinence R15.9 10/15/24 1337 Date Johana Varela MD Cosigner Signature: Date (if applicable) CC: Normal [facility] 30on 05-13-2024 30 Problem: Knowledge Deficit Goal: Patient/family/caregiver demonstrates understanding of disease process, treatment plan, medications, and discharge instructions Outcome: Progressing Problem: Potential for Compromised Skin Integrity Goal: Skin Integrity is Maintained or Improved Outcome: Progressing Normal [facility] [id number] 05-13-2024 [id number] MAR & Discharge med list transmitted to [facility] via [employer] per TCC request. Electronically signed by JEFF Figueredo [facility] SARS-CoV-2 (COVID-19) Ab IA Ql Per attending pt is ready for DC. Pt is able to return LTC. Bedhold. No covid needed. Discharge order placed. PADMINI complete. TCC asked SW to set up transport. RN aware. TCC updated legal guardian. Left VM at this time. TCC updated LTC via careport. TCC tasked [facility] to transmit discharge orders to facility. Discharge date updated and milestones completed. Pt will be transported to [facility] LTC today. [facility] [id number] CRYSTAL late entry: Yesterday, Pastoral Care staff Kristin, spoke to SW. Kristin had met with pt. During the visit, pt shared with Kristin, she wanted to return to [facility], not [facility]. SW explained to Kristin, pt has a LG, whom TCC spoke to and has agreed to pt returning to [facility]. Pt would need to talk with LG about a possible move, once at [facility]. TCC sent secure chat to team, pt is medially ready for discharge to LTC [facility]. Pt needs transportation arranged. CRYSTAL completed [facility], requesting COT transport at 3:30 today. Received response back from [facility], Stu Kinney will spanish moss picker pt at 3:30pm. Sent careport message to [facility] with time of spanish moss picker. CRYSTAL called pt LG rep listed in chart. Updated LG in discharge. LG would like a copy of discharge paperwork e-mailed to [email or web address].. CRYSTAL shared with LG the info Sports Recruiter Kristin had given SW about pt preferring to live at [facility]. LG was unaware pt not happy at [facility], pt has given positive feedback to LG. LG will explore this request. Met with pt, introduced self/role. RN had updated pt on discharge time. SW let pt know SW had spoken with LG about pt request to go to [facility]. Pt discussed she has only been at [facility] a couple of weeks. Pt feels limited with being able to freely walk around, can only go off the unit with an aide. Feels aides are not assisting with pt personal hygiene. Pt has a [employer] edda, as pt filed complaint about [facility]. SW encouraged pt to let LG and DH know of pt concerns. SW following. . TAL follow up: Sw checked careport, facility had acknowledged pt discharge, which was sent to facility 2 hours ago. Crystal called [facility], updated front desk officer staff pt spanish moss picker time today. . Normal [facility] BASIC METABOLIC PANELon 12-0 Anion gap [Moles/Vol] 4 mmol/L Normal 3-13 [facility] Comment on above: Performed By: #### L AB15 ####Roof Foreman: STARLA KEEN ([id number])[address] Calcium [Mass/Vol] 8.6 mg/dL Low 8.8-10.0 [facility] Comment on above: Performed By: #### L AB15 ####Roof Foreman: STARLA KEEN ([id number])[address] Chloride [Moles/Vol] 103 mmol/L Normal 98-107 [facility] Comment on above: Performed By: #### L AB15 ####Roof Foreman: STARLA KEEN ([id number])[facility])[address] [place] [address] CO2 [Moles/Vol] 31 mmol/L Normal 23-31 [facility] Comment on above: Performed By: #### L AB15 ####Roof Foreman: STARLA KEEN ([id number])[address] Creatinine [Mass/Vol] 0.82 mg/dL Normal 0.57-1.11 [facility] Comment on above: Performed By: #### L AB15 ####Roof Foreman: STARLA KEEN ([id number])[facility])[address] [place] [address] GLOMERULAR FILTRATION RATE ML/MIN/1.73 SQ M.PREDICTED 81.5 mL/min/1.73m*2 Normal >60.0 [facility] Comment on above: Result Comment: Calc ulation based on the Chronic Kidney Disease Epidemiology Collaboration (CKD-EPI) equation refit without adjustment for race Performed By: #### L AB15 ####Roof Foreman: STARLA KEEN ([id number])[facility] ([facility])[address] [place] [address] Glucose [Mass/Vol] 166 mg/dL High 82-115 [facility] Comment on above: Performed By: #### L AB15 ####Roof Foreman: STARLA KEEN ([id number])[facility])[address] [place] [address] Potassium [Moles/Vol] 4.1 mmol/L Normal 3.5-5.1 [facility] Comment on above: Result Comment: [facility] potassium values may be up to 0.5 mmol/L lower than serum values. Performed By: #### L AB15 ####Roof Foreman: STARLA KEEN ([id number])[facility])[address] [place] [address] Sodium [Moles/Vol] 138 mmol/L Normal 136-145 [facility] Comment on above: Performed By: #### L AB15 ####Roof Foreman: STARLA KEEN ([id number])[facility])[address] [place] [address] [place] Urea nitrogen [Mass/Vol] 16 mg/dL Normal 9-23 [facility] Comment on above: Performed By: #### L AB15 ####Roof Foreman: STARLA KEEN ([id number])[facility])[address] [place] [address] Bacteria identified Cx Nom ( U)Ordered By: Judy Christiansen on 05-13-2024 Interpretation and review of laboratory results Abnormal [facility] Basic metabolic 1998 panelon 12-04-2024 Anion gap [Moles/Vol] 4 mmol/L 3 - 13 mmol/L [facility] Calcium [Mass/Vol] 8.6 mg/dL Low 8.8 - 10. 0 mg/dL [facility] Chloride [Moles/Vol] 103 mmol/L 98 - 10 7 mmol/L [facility] CO2 [Moles/Vol] 31 mmol/L 23 - 31 mmol/L [facility] Creatinine [Mass/Vol] 0.82 mg/dL 0.57 - 1.11 mg/dL [facility] GFR/1.73 sq M.predicted (S/P/Bld) [Vol rate/Area] 81.5 mL/min - PINF [facility] Comment on above: Calculation based on the Chronic Kidney Disease Epidemiology Collaboration (CKD-EPI) equation refit without adjustment for race Glucose [Mass/Vol] 166 mg/dL High 82 - 115 mg/dL [facility] Interpretation and review of laboratory results Abnormal [facility] Potassium [Moles/Vol] 4.1 mmol/L 3.5 - 5.1 mmol/L [facility] Comment on above: Plasma potassium sandhya ues may be up to 0.5 mmol/L lower than serum values. Sodium [Moles/Vol] 138 mmol/L 136 - 145 mmol/L [facility] Urea nitrogen [Mass/Vol] 16 mg/dL 9 - 23 mg/dL [facility] CBC (HEMOGRAM)on 05-13-2024 Erythrocyte distribution width (RBC) [Ratio] 18.0 % High 11.5-15.0 [facility] Comment on above: Performed By: #### L [id number] ####Roof Foreman: STARLA KEEN ([id number])[address] Hematocrit (Bld) [Volume fraction] 41.3 % Normal 35.0-47.0 [facility] Comment on above: Performed By: #### L [id number] ####Roof Foreman: STARLA KEEN ([id number])[facility])[address] [place] [address] Hemoglobin (Bld) [Mass/Vol] 12.2 g/dL Normal 11.7-16.0 [facility] Comment on above: Performed By: #### L [id number] ####Roof Foreman: STARLA KEEN ([id number])[facility])[address] [place] [address] MCH (RBC) [Entitic mass] 24.5 pg Low 26.0-34.0 [facility] Comment on above: Performed By: #### L [id number] ####Roof Foreman: STARLA KEEN ([id number])[facility])[address] [place] [address] MCHC 29.5 % Low 30.5-36.0 [facility] Comment on above: Performed By: #### L [id number] ####Roof Foreman: STARLA KEEN ([id number])[facility])[address] [place] [address] MCV (RBC) [Entitic vol] 83.1 fL Normal 77.0-99.0 [facility] Comment on above: Performed By: #### L [id number] ####Roof Foreman: STARLA KEEN ([id number])[facility])[address] [place] [address] Platelet mean volume (Bld) [Entitic vol] 9.0 fL Normal 9.0-12.7 [facility] Comment on above: Performed By: #### L [id number] ####Roof Foreman: STARLA KEEN ([id number])[facility])[address] [place] [address] Platelets (Bld) [#/Vol] 251 10*3/uL Normal 140-440 [facility] Comment on above: Performed By: #### L [id number] ####Roof Foreman: STARLA KEEN ([id number])[facility])[address] [place] [address] RBC (Bld) [#/Vol] 4.97 10*6/uL Normal 3.80-5.20 [facility] Comment on above: Performed By: #### L [id number] ####Roof Foreman: STARLA KEEN ([id number])[facility] ([facility])[address] [place] [address] WBC (Bld) [#/Vol] 6.5 10*3/uL Normal 3.6-10.7 [facility] Comment on above: Performed By: #### L [id number] ####Roof Foreman: STARLA KEEN ([id number])[facility] ([facility])[address] [place] [address] CBC panel Auto (Bld)Ordered By: Inna Bernard on 05-13-2024 Erythrocyte distribution width (RBC) [Ratio] 18 % High 11.5 - 15.0 % [facility] Hematocrit (Bld) [Volume fraction] 41.3 % 35.0 - 47.0 % [facility] Hemoglobin (Bld) [Mass/Vol] 12.2 g/dL 11.7 - 16.0 g/dL [facility] Interpretation and review of laboratory results Abnormal [facility] MCH (RBC) [Entitic mass] 24.5 pg Low 26.0 - 34.0 pg [facility] MCHC (RBC) [Mass/Vol] 29.5 % Low 30.5 - 36.0 % [facility] MCV (RBC) [Entitic vol] 83.1 fL 77.0 - 99.0 fL [facility] Platelet mean volume (Bld) [Entitic vol] 9 fL 9.0 - 12.7 fL [facility] Platelets (Bld) [#/Vol] 251 10*3/uL 140 - 440 10*3/uL [facility] RBC (Bld) [#/Vol] 4.97 10*6/uL 3.80 - 5.20 10*6/uL [facility] WBC (Bld) [#/Vol] 6.5 10*3/uL 3.6 - 10.7 10*3/uL [facility] Laboratory - Chemistry and C hemistry - challengeon 05-13-2024 Glucose [Mass/Vol] 200 mg/dL High 70 - 100 mg/dL [facility] Glucose [Mass/Vol] 151 mg/dL High 70 - 100 mg/dL [facility] Laboratory - Microbiology an d Antimicrobial susceptibilityOrdered By: Judy Christiansen on 05-13-2024 Bacteria identified Cx Nom (U) Normal urogenital luisa present [facility] Bacteria identified Cx Nom (U) >100,000 CFU/mL Escherichia coli Abnormal [facility] No Panel Informationon 05-13 Interpretation and review of laboratory results Abnormal [facility] Performed by: [facility], [address] [place] [id number] CLIA ID: [id number] [facility] Interpretation and review of laboratory results Abnormal [facility] Performed by: [facility], [address] [place] [id number] CLIA ID: [id number] [facility] Nursing Noteon 05-13-2024 Nursing Note Patient IV taken out . Patient discharged off unit in stable condition via transportation. Normal [facility] Nursing Note Called [facility] for report. No answer. Normal [facility] Progress Noteon 05-13-2024 Progress Note Spiritual Care Note [facility] Palliative Care Patient Name:Bharat Manzanares Chief Complaint: Chief Complaint Patient presents with Diarrhea Pt from [facility], states they have an outbreak of Norovirus at the facility. Pt arrives with diarrhea for 1.5 days. Pt awake and alert on arrival. Pt also c/o knee pain chronic and a migraine. Reason for visit: Follow Up Services Provided To:care team Background and visit note: Talked with nurse's station about conversation had one day earlier regarding the need for patient to talk with her guardian regarding a move to another facility. Previous conversation took place yesterday afternoon too. Is there spiritual distress? YES Comment: Interventions: emotional support provided. Care Plan: build trust. Follow Up: when patient is able. Debriefed: with patients nurse, with auto porter team, and N/A. Kristin Persaud 05/13/24 [facility] [id number] 05-12-2024 [id number] TCC updated CRYSTAL, LG i s in agreement for pt to return to [facility] when medically ready. Will require transportation at discharge. SW completed Will Call for COT transport in [place]. Will Call is good until 05/15. . 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 Seen in last 2 years?: Yes Primary Caregiver: Other (Comment) (LT) If assistance needed, confirmed caregiver ready, willing and able to care for patient at discharge: Confirmed with: Living Arrangements Current Residence: Number of Floors Number of Entry Steps: Bed/Bath Levels: Facility: Group Home/[facility] Facility Name: [facility] Plan to Return: Yes Lives with: Support Systems: Family members Activities of Daily Living Ambulation: Assistance Bathing/Dressing: Assistance Elimination/Continence/T oileting: Assistance Feeding: Assistance Who Assists with Activities of Daily Living: LTC Instrumental Activities of Daily Living Prescription Coverage: Yes Pharmacy Used: LTC Medication Management: Medication dispenser Who assists with medication securing and setup?: LTC Transportation/Shopping: Assistance Provider Transportation/Shopping Assistance Provider Name: ambulance transport Transportation Mode: Needs Assistance with Transportation at Discharge: Yes, Comments (ambulance transport back to LT) Meal Preparation: Assistance Provider Laundry/Cleaning: Assistance Provider Finances/Bill Paying: Assistance Provider Communication: Independent Types of Care Services/Equipment Utilized Care Services: Dialysis Type: NA Durable Medical Equipment: Wheelchair (standard or power), Hospital Bed DME Provider: LTC Patient's Goal/Discharge Plan Patient expects to be discharged to: return to [facility] Discharge Planning Actions: Continue to follow, Assisted Facility referral indicated [place] of choice: [place] choice discussed Patient's Choice Rights and [employer] and Collaborative Relationships Disclosed as Indicated for Post-Acute Care: Yes Interdisciplinary Team Engagement: Social Work Referral for: Transportation Assistance Additional Information: TCC spoke to pt legal guardian for [place]. Pt admitted with fever and chills. Pt positive for C-DIFF and norovirus. Pt is on 2 L of O2 NC here, none at baseline. Pt may have to go back to LTC with O2. Urine culture positive. Legal guardian is agreeable for pt to return to [facility] LT level of care. Pt will need ambulance transport back. TCC notified SW of this need. Case management consulted,-fulfilled. TCC will follow for pt readiness. TCC tasked LABORATORY DIRECTOR to make return referral. Sandra Martinez RN [facility] Laboratory - Chemistry and C hemistry - challengeon 05-12-2024 Glucose [Mass/Vol] 195 mg/dL High 70 - 100 mg/dL [facility] Glucose [Mass/Vol] 156 mg/dL High 70 - 100 mg/dL [facility] Glucose [Mass/Vol] 144 mg/dL High 70 - 100 mg/dL [facility] Glucose [Mass/Vol] 157 mg/dL High 70 - 100 mg/dL [facility]Me No Panel Informationon 05-12 Interpretation and review of laboratory results Abnormal [facility] Performed by: [facility], [address] [place] [id number] CLIA ID: [id number] [facility] Interpretation and review of laboratory results Abnormal [facility] Performed by: [facility], [address] [place] [id number] CLIA ID: [id number] [facility] Interpretation and review of laboratory results Abnormal [facility] Performed by: [facility], [address] [place] [id number] CLIA ID: [id number] [facility] Interpretation and review of laboratory results Abnormal [facility] Performed by: [facility], [address] [place] [id number] CLIA ID: [id number] [facility] Progress Noteon 05-12-2024 Progress Note Nutrition rescreen completed. Chart reviewed. Patient to be monitored and followed by the diet medical coding technician. EH Pagan [facility] [id number] 05-11-2024 [id number] TCC and SW rounded. Notes in chart indicate pt from an AL at [facility]. Pt also listed as having a LG SW called [facility], spoke with admission staff. Confirmed pt is not from AL, but is LTC at [facility], pt a bedhold. Admission staff indicated pt use to reside in [place] before coming to their facility LTC. SW researched pt LG status. Located pt has an active guardianship through [facility]. On [facility]ate Court website, unable to locate a printable Letter of Guardianship. SW called [facility] Court. Spoke with courtesy car driver who confirmed pt has active case. Pt guardianship is held by a guardianship agency. Court will will e-mail SW the letter of guardianship and contact info. SW updated TCC. . TAL follow up: Received e-mail copy of Letter og Guardianship from [facility]. Pt guardian is [employer] [facility] Guardianship [employer] Board, not a specific person. The guardianship office can be contacted at [phone]. CRYSTAL placed copy of the Letter of Guardianship on floor chart. SW following. . [facility] [phone] TCC tried to call pt 's legal guardian again, no answer. VM left. TCC will try again as time allows. [facility] [phone] TCC called pt legal guardian to complete [place]. TCC left HIPAA VM at this time. TCC will try to attempt IA as time allows today. [facility] BASIC METABOLIC PANELon 12-0 Anion gap [Moles/Vol] 7 mmol/L Normal 3-13 [facility] Comment on above: Performed By: #### L [id number] ####Roof Foreman: STARLA KEEN ([id number])[facility] ([facility])[address] [place] [address] Calcium [Mass/Vol] 8.2 mg/dL Low 8.4-10.4 [facility] Comment on above: Performed By: #### L AB15 ####Roof Foreman: STARLA KEEN ([id number])[facility] ([facility])[address] [place] [address] Chloride [Moles/Vol] 98 mmol/L Normal 98-107 [facility] Comment on above: Performed By: #### L AB15 ####Roof Foreman: STARLA KEEN ([id number])[facility] ([facility])[address] [place] [address] CO2 [Moles/Vol] 30 mmol/L Normal 22-30 [facility] Comment on above: Performed By: #### L [id number] ####Roof Foreman: STARLA KEEN ([id number])[facility])[address] [place] [address] Creatinine [Mass/Vol] 0.87 mg/dL Normal 0.52-1.04 [facility] Comment on above: Performed By: #### L [id number] ####Roof Foreman: STARLA KEEN ([id number])[facility] ([facility])[address] [place] [address] GLOMERULAR FILTRATION RATE ML/MIN/1.73 SQ M.PREDICTED 75.9 mL/min/1.73m*2 Normal >60.0 [facility] Comment on above: Result Comment: Calc ulation based on the Chronic Kidney Disease Epidemiology Collaboration (CKD-EPI) equation refit without adjustment for race Performed By: #### L [id number] ####Roof Foreman: STARLA KEEN ([id number])[facility] ([facility])[address] [place] [address] Glucose [Mass/Vol] 167 mg/dL High 70-100 [facility] Comment on above: Performed By: #### L AB15 ####Roof Foreman: STARLA KEEN ([id number])[facility])[address] [place] [address] Potassium [Moles/Vol] 3.6 mmol/L Normal 3.5-5.1 [facility] Comment on above: Performed By: #### L AB15 ####Roof Foreman: STARLA [id number])[facility] ([facility])[address] [place] [address] Sodium [Moles/Vol] 134 mmol/L Low 135-145 [facility] Comment on above: Performed By: #### L AB15 ####Roof Foreman: STARLA KEEN ([id number])[facility] ([facility])[address] [place] [address] Urea nitrogen [Mass/Vol] 20 mg/dL High 7-17 [facility] Comment on above: Performed By: #### L AB15 ####Roof Foreman: STARLA KEEN ([id number])[facility] [place] [address] Basic metabolic 1998 panelOr dered By: Kirstin Mendenhall on 05-11-2024 Anion gap [Moles/Vol] 7 mmol/L 3 - 13 mmol/L [facility] Calcium [Mass/Vol] 8.2 mg/dL Low 8.4 - 10. 4 mg/dL [facility] Chloride [Moles/Vol] 98 mmol/L 98 - 10 7 mmol/L [facility] CO2 [Moles/Vol] 30 mmol/L 22 - 30 mmol/L [facility] Creatinine [Mass/Vol] 0.87 mg/dL 0.52 - 1.04 mg/dL [facility] GFR/1.73 sq M.predicted (S/P/Bld) [Vol rate/Area] 75.9 mL/min - PINF [facility] Comment on above: Calculation based on the Chronic Kidney Disease Epidemiology Collaboration (CKD-EPI) equation refit without adjustment for race Glucose [Mass/Vol] 167 mg/dL High 70 - 100 mg/dL [facility] Interpretation and review of laboratory results Abnormal [facility] Potassium [Moles/Vol] 3.6 mmol/L 3.5 - 5.1 mmol/L [facility] Sodium [Moles/Vol] 134 mmol/L Low 135 - 145 mmol/L [facility] Urea nitrogen [Mass/Vol] 20 mg/dL High 7 - 17 mg/dL [facility] C. DIFFICILE BY PCR WITH REF EL TO EIAon 05-11-2024 C. DIFFICILE BY PCR WITH REFLEX TO EIA C. DIFFICILE TOXIN PCR (A) Reference Detected Not Detected ORDER COMMENTS: (A) This test screens for possible C. difficile infection. Additional testing is required and has been ordered by Laboratory. See C. difficile Toxins EIA for final results. Additional charges apply. Methodology: Real-time PCR Normal [facility] Comment on above: Performed By: #### L [id number], [id number], [id number] ####Roof Foreman: STARLA KEEN ([id number])[facility] ([facility] C. difficile toxin A+B tcdA+ tcdB genes CYNTHIA+probe Ql (Stl)on 05-11-2024 C difficile Toxins A+B, EIA Negative Negative [facility] Interpretation and review of laboratory results Normal [facility] Results indicate colonization with C. Difficile. Correlate with clinical data and/or consider other causes for symptoms. Methodology: Enzyme Immunoassay [facility] C. difficile toxin genes CYNTHIA +probe Ql (Stl)on 05-11-2024 C. difficile toxin B tcdB gene CYNTHIA+probe Ql (Stl) Detected Abnormal Not Detected [facility] Interpretation and review of laboratory results Abnormal [facility] This test screens fo r possible C. difficile infection. Additional testing is required and has been ordered by Laboratory. See C. difficile Toxins EIA for final results. Additional charges apply. Methodology: Real-time PCR [facility] CBC W Auto Differential pane l (Bld)Ordered By: Frederic Pillai on 05-11-2024 Basophils (Bld) [#/Vol] 0 10*3/uL 0.0 - 0.2 10*3/uL [facility] Basophils/100 WBC (Bld) 0.1 % 0.0 - 2.0 % [facility] Eosinophils (Bld) [#/Vol] 0 10*3/uL 0.0 - 0.5 10*3/uL [facility] Eosinophils/100 WBC (Bld) 0.6 % 0.0 - 6.0 % [facility] Erythrocyte distribution width (RBC) [Ratio] 18.5 % High 11.5 - 15.0 % [facility] Hematocrit (Bld) [Volume fraction] 38 % 35.0 - 47.0 % [facility] Hemoglobin (Bld) [Mass/Vol] 11.2 g/dL Low 11.7 - 16.0 g/dL [facility] Immature granulocytes (Bld) [#/Vol] 0 10*3/uL NINF - 0.1 10*3/uL [facility] Immature granulocytes/100 WBC (Bld) 0.6 % 0.0 - 2.0 % [facility] Interpretation and review of laboratory results Abnormal [facility] Lymphocytes (Bld) [#/Vol] 1.2 10*3/uL 1.0 - 4.3 10*3/uL [facility] Lymphocytes/100 WBC (Bld) 17.7 % 15.0 - 45.0 % [facility] MCH (RBC) [Entitic mass] 24.7 pg Low 26.0 - 34.0 pg [facility] MCHC (RBC) [Mass/Vol] 29.5 % Low 30.5 - 36.0 % [facility] MCV (RBC) [Entitic vol] 83.7 fL 77.0 - 99.0 fL [facility] Monocytes (Bld) [#/Vol] 0.6 10*3/uL 0.0 - 0.9 10*3/uL [facility] Monocytes/100 WBC (Bld) 8.5 % 5.0 - 13.0 % [facility] Neutrophils (Bld) [#/Vol] 4.8 10*3/uL 1.8 - 7.5 10*3/uL [facility] Neutrophils/100 WBC (Bld) 72.5 % 38.0 - 82.0 % [facility] Nucleated RBC/100 WBC (Bld) [Ratio] 0 % [facility] Platelet mean volume (Bld) [Entitic vol] 9.7 fL 9.0 - 12.7 fL [facility] Platelets (Bld) [#/Vol] 229 10*3/uL 140 - 440 10*3/uL [facility] RBC (Bld) [#/Vol] 4.54 10*6/uL 3.80 - 5.20 10*6/uL [facility] WBC (Bld) [#/Vol] 6.7 10*3/uL 3.6 - 10.7 10*3/uL [facility] CBC WITH AUTO DIFFERENTIALon 05-11-2024 Basophils (Bld) [#/Vol] 0.0 10*3/uL Normal 0.0-0.2 [facility] Comment on above: Performed By: #### L [id number] ####Roof Foreman: STARLA KEEN ([id number])[facility])[address] [place] [address] Basophils/100 WBC (Bld) 0.1 % Normal 0.0-2.0 [facility] Comment on above: Performed By: #### L [id number] ####Roof Foreman: STARLA KEEN ([id number])[facility])[address] [place] [address] Eosinophils (Bld) [#/Vol] 0.0 10*3/uL Normal 0.0-0.5 [facility] Comment on above: Performed By: #### L [id number] ####Roof Foreman: STARLA KEEN ([id number])[facility])[address] [place] [address] Eosinophils/100 WBC (Bld) 0.6 % Normal 0.0-6.0 [facility] Comment on above: Performed By: #### L [id number] ####Roof Foreman: STARLA KEEN ([id number])[facility])[address] [place] [address] Erythrocyte distribution width (RBC) [Ratio] 18.5 % High 11.5-15.0 [facility] Comment on above: Performed By: #### L [id number] ####Roof Foreman: STARLA KEEN ([id number])[facility])[address] [place] [address] Hematocrit (Bld) [Volume fraction] 38.0 % Normal 35.0-47.0 [facility] Comment on above: Performed By: #### L [id number] ####Roof Foreman: STARLA KEEN ([id number])[facility])[address] [place] [address] Hemoglobin (Bld) [Mass/Vol] 11.2 g/dL Low 11.7-16.0 [facility] Comment on above: Performed By: #### L [id number] ####Roof Foreman: STARLA [id number])[facility] ([facility])[address] [place] [address] IMMATURE GRANS % 0.6 % Normal 0.0-2.0 [facility] Comment on above: Performed By: #### L [id number] ####Roof Foreman: STARLA KEEN ([id number])[facility])[address] [place] [address] IMMATURE GRANS ABSOLUTE 0.0 10*3/uL Normal <0.1 [facility] Comment on above: Performed By: #### L [id number] ####Roof Foreman: STARLA KEEN ([id number])[facility])[address] [place] [address] Lymphocytes (Bld) [#/Vol] 1.2 10*3/uL Normal 1.0-4.3 [facility] Comment on above: Performed By: #### L [id number] ####Roof Foreman: STARLA KEEN ([id number])[facility])[address] [place] [address] Lymphocytes/100 WBC (Bld) 17.7 % Normal 15.0-45.0 [facility] Comment on above: Performed By: #### L [id number] ####Roof Foreman: STARLA KEEN ([id number])[facility])[address] [place] [address] MCH (RBC) [Entitic mass] 24.7 pg Low 26.0-34.0 [facility] Comment on above: Performed By: #### L [id number] ####Roof Foreman: STARLA KEEN ([id number])[facility])[address] [place] [address] MCHC 29.5 % Low 30.5-36.0 [facility] Comment on above: Performed By: #### L [id number] ####Roof Foreman: STARLA KEEN ([id number])[facility])[address] [place] [address] MCV (RBC) [Entitic vol] 83.7 fL Normal 77.0-99.0 [facility] Comment on above: Performed By: #### L [id number] ####Roof Foreman: STARLA KEEN ([id number])[facility])[address] [place] [address] Monocytes (Bld) [#/Vol] 0.6 10*3/uL Normal 0.0-0.9 [facility] Comment on above: Performed By: #### L [id number] ####Roof Foreman: STARLA KEEN ([id number])[facility] ([facility])[address] [place] [address] Monocytes/100 WBC (Bld) 8.5 % Normal 5.0-13.0 [facility] Comment on above: Performed By: #### L [id number] ####Roof Foreman: STARLA KEEN ([id number])[facility] ([facility])[address] [place] [address] NEUTROPHILS ABSOLUTE 4.8 10*3/uL Normal 1.8-7.5 [facility] Comment on above: Performed By: #### L [id number] ####Roof Foreman: STARLA KEEN ([id number])[facility] ([facility])[address] [place] [address] Neutrophils/100 WBC (Bld) 72.5 % Normal 38.0-82.0 [facility] Comment on above: Performed By: #### L [id number] ####Roof Foreman: STARLA KEEN ([id number])[facility] ([facility])[address] [place] [address] NRBC 0.0 /100 WBCs Normal 0.0-2.0 [facility] Comment on above: Performed By: #### L [id number] ####Roof Foreman: STARLA KEEN ([id number])[facility])[address] [place] [address] Platelet mean volume (Bld) [Entitic vol] 9.7 fL Normal 9.0-12.7 [facility] Comment on above: Performed By: #### L [id number] ####Roof Foreman: STARLA KEEN ([id number])[facility] [place] [address] Platelets (Bld) [#/Vol] 229 10*3/uL Normal 140-440 [facility] Comment on above: Performed By: #### L [id number] ####Roof Foreman: STARLA KEEN ([phone])[facility] ([facility])[address] [place] [address] RBC (Bld) [#/Vol] 4.54 10*6/uL Normal 3.80-5.20 [facility] Comment on above: Performed By: #### L [id number] ####Roof Foreman: STARLA KEEN ([phone])[facility] ([facility])[address] [place] [address] WBC (Bld) [#/Vol] 6.7 10*3/uL Normal 3.6-10.7 [facility] Comment on above: Performed By: #### L [id number] ####Roof Foreman: STARLA KEEN ([id number])[facility] ([facility])[address] [place] [address] GASTROINTESTINAL PCR PANELon 05-11-2024 GASTROINTESTINAL PCR PANEL CAMPYLOBACTER Reference Not Detected Not Detected PLESIOMONAS SHIGELLOIDES Reference Not Detected Not Detected SALMONELLA Reference Not Detected Not Detected VIBRIO SPECIES Reference Not Detected Not Detected VIBRIO CHOLERAE Reference Not Detected Not Detected YERSINIA ENTEROCOLITICA Reference Not Detected Not Detected ENTEROTOXIGENIC E COLI (ETEC) Reference Not Detected Not Detected SHIGA TOXIN-PRODUCING E COLI (STEC) Reference Not Detected Not Detected SHIGELLA/ENTEROINVASIVE E COLI (EIEC) Reference Not Detected Not Detected CRYPTOSPORIDIUM Reference Not Detected Not Detected CYCLOSPORA CAYETANENSIS Reference Not Detected Not Detected ENTAMOEBA HISTOLYTICA Reference Not Detected Not Detected GIARDIA LAMBLIA Reference Not Detected Not Detected ADENOVIRUS F 40/41 Reference Not Detected Not Detected ASTROVIRUS Reference Not Detected Not Detected NOROVIRUS GI/GII (A) Reference Detected Not Detected ROTAVIRUS A Reference Not Detected Not Detected SAPOVIRUS Reference Not Detected Not Detected ORDER COMMENTS: A positive Norovirus result on the Film Array GI panel should be interpreted in the context of the patient's history and clinical picture. If results are not consistent, result should be confirmed with a Norovirus specific assay. Methodology: Multiplex PCR Normal [facility] Comment on above: Performed By: #### L [id number], [id number], [id number] ####Roof Foreman: STARLA KEEN ([phone])[facility] ([facility])[address] [place] [address] Gastrointestinal pathogens p juan CYNTHIA+probe (Stl)Ordered By: Delilah Anthony on 05-11-2024 Adenovirus F 40/41 Not detected Not Detected [facility] Astrovirus Not detected Not Detected [facility] Campylobacter Not detected Not Detected [facility] Cryptosporidium Not detected Not Detected [facility] Cyclospora cayetanensis Not detected Not Detected [facility] Entamoeba histolytica Not detected Not Detected [facility] Enterotoxigenic E coli (ETEC) Not detected Not Detected [facility] Giardia lamblia Not detected Not Detected [facility] Interpretation and review of laboratory results Abnormal [facility] Norovirus GI/GII Detected Abnormal Not Detected [facility] Plesiomonas shigelloides Not detected Not Detected [facility] Rotavirus A Not detected Not Detected [facility] Salmonella Not detected Not Detected [facility] Sapovirus Not detected Not Detected [facility] Shiga toxin-producing E coli (STEC) Not detected Not Detected [facility] Shigella/Enteroinvasive E coli (EIEC) Not detected Not Detected [facility] Vibrio cholerae Not detected Not Detected [facility] Vibrio species Not detected Not Detected [facility] Yersinia enterocolitica Not detected Not Detected [facility] A positive Norovirus result on the Film Array GI panel should be interpreted in the context of the patient's history and clinical picture. If results are not consistent, result should be confirmed with a Norovirus specific assay. Methodology: Multiplex PCR [facility] HEMOGLOBIN A1Con 05-11-2024 Glucose [Mass/Vol] 189 mg/dL Normal [facility] Comment on above: Order Comment: If no t done within the last 3 mos Performed By: #### L AB90 ####Roof Foreman: STARLA KEEN ([phone])[facility] ([facility])[address] [place] [address] HbA1c (Bld) [Mass fraction] 8.2 % High <5.7 [facility] Comment on above: Order Comment: If no t done within the last 3 mos Result Comment: Norm al less than 5.7% Prediabetes 5.7% to 6.4% Diabetes 6.5% or higher --HgbA1C levels may not be accurate in patients who have renal disease, received recent blood transfusions, are anemic, or who have dyshemoglobinemia. Performed By: #### L AB90 ####Roof Foreman: STARLA KEEN ([id number])[facility] ([facility])[address] [place] [address] LAB ONLY - C DIFF EIAon LAB ONLY - C DIFF EIA C DIFFICILE TOXINS A+B, EIA Reference Negative Negative ORDER COMMENTS: Results indicate colonization with C. Difficile. Correlate with clinical data and/or consider other causes for symptoms. Methodology: Enzyme Immunoassay Normal [facility] Comment on above: Performed By: #### L [id number], [id number], [id number] ####Roof Foreman: STARLA KEEN ([id number])[facility] ([facility])[address] [place] [address] Laboratory - Chemistry and C hemistry - challengeon 05-11-2024 Glucose [Mass/Vol] 223 mg/dL High 70 - 100 mg/dL [facility] Glucose [Mass/Vol] 126 mg/dL High 70 - 100 mg/dL [facility] Glucose [Mass/Vol] 174 mg/dL High 70 - 100 mg/dL [facility] Glucose [Mass/Vol] 184 mg/dL High 70 - 100 mg/dL [facility] Average glucose Estimated from glycated hemoglobin (Bld) [Mass/Vol] 189 mg/dL [facility] Laboratory - Hematology and Cell countson 05-11-2024 HbA1c (Bld) [Mass fraction] 8.2 % High NINF - 5.7 % [facility] Comment on above: Normal less than 5.7 % Prediabetes 5.7% to 6.4% Diabetes 6.5% or higher --HgbA1C levels may not be accurate in patients who have renal disease, received recent blood transfusions, are anemic, or who have dyshemoglobinemia. No Panel Informationon 05-11 Interpretation and review of laboratory results Abnormal [facility] Performed by: [facility], [address] [place] [address], [facility] [address] CLIA ID: [id number] [facility] Interpretation and review of laboratory results Abnormal [facility] Performed by: [facility], [address] [place] [address], [facility] [address] CLIA ID: [id number] [facility] Interpretation and review of laboratory results Abnormal [facility] Performed by: [facility], [address] [place] [id number] CLIA ID: [id number] [facility] Interpretation and review of laboratory results Abnormal [facility] Performed by: [facility], [address] [place] [address], [facility] [address] CLIA ID: [id number] [facility] Interpretation and review of laboratory results Abnormal [facility] Progress Noteon 05-11-2024 Progress Note OCCUPATIONAL THERAPY [facility] Name/MRN: Bharat Manzanares ([id number]) Date: 05/11/2024 Orders for OT eval and treat received. Attempted OT eval 2x this afternoon (1230 and 1300). Pt in bathroom with aides on both attempts, aides indicating this will be awhile and requesting therapy to return. Will reattempt as schedule allows Frannie Dennis, TERENCE Normal [facility] CBC W Auto Differential pane l (Bld)Ordered By: Cari Lang on 05-10-2024 Erythrocyte distribution width (RBC) [Ratio] 18.6 % High 11.5 - 15.0 % [facility] Hematocrit (Bld) [Volume fraction] 41.8 % 35.0 - 47.0 % [facility] Hemoglobin (Bld) [Mass/Vol] 12.7 g/dL 11.7 - 16.0 g/dL [facility] Interpretation and review of laboratory results Abnormal [facility] MCH (RBC) [Entitic mass] 25 pg Low 26.0 - 34.0 pg [facility] MCHC (RBC) [Mass/Vol] 30.4 % Low 30.5 - 36.0 % [facility] MCV (RBC) [Entitic vol] 82.3 fL 77.0 - 99.0 fL [facility] Platelet mean volume (Bld) [Entitic vol] 9.7 fL 9.0 - 12.7 fL [facility] Platelets (Bld) [#/Vol] 203 10*3/uL 140 - 440 10*3/uL [facility] RBC (Bld) [#/Vol] 5.08 10*6/uL 3.80 - 5.20 10*6/uL [facility] WBC (Bld) [#/Vol] 10.1 10*3/uL 3.6 - 10.7 10*3/uL [facility] CBC WITH AUTO DIFFERENTIALon 05-10-2024 Erythrocyte distribution width (RBC) [Ratio] 18.6 % High 11.5-15.0 [facility] Comment on above: Performed By: #### L [id number], [id number] ####Roof Foreman: STARLA KEEN ([id number])[facility])[address] [place] [address] Hematocrit (Bld) [Volume fraction] 41.8 % Normal 35.0-47.0 [facility] Comment on above: Performed By: #### L [id number], [id number] ####Roof Foreman: STARLA KEEN ([id number])[address] Hemoglobin (Bld) [Mass/Vol] 12.7 g/dL Normal 11.7-16.0 [facility] Comment on above: Performed By: #### L [id number], [id number] ####Roof Foreman: STARLA KEEN ([phone])[facility])[address] [place] [address] MCH (RBC) [Entitic mass] 25.0 pg Low 26.0-34.0 [facility] Comment on above: Performed By: #### L [id number], [id number] ####Roof Foreman: STARLA KEEN ([phone])[address] MCHC 30.4 % Low 30.5-36.0 [facility] Comment on above: Performed By: #### L [id number], [id number] ####Roof Foreman: STARLA KEEN ([id number])[facility] ([facility])[address] [place] [address] MCV (RBC) [Entitic vol] 82.3 fL Normal 77.0-99.0 [facility] Comment on above: Performed By: #### L [id number], [id number] ####Roof Foreman: STARLA KEEN ([id number])[facility] ([facility])[address] [place] [address] Platelet mean volume (Bld) [Entitic vol] 9.7 fL Normal 9.0-12.7 [facility] Comment on above: Performed By: #### L [id number], [id number] ####Roof Foreman: STARLA KEEN ([id number])[facility] ([facility])[address] [place] [address] Platelets (Bld) [#/Vol] 203 10*3/uL Normal 140-440 [facility] Comment on above: Performed By: #### L [id number], [id number] ####Roof Foreman: STARLA KEEN ([id number])[facility] ([facility])[address] [place] [address] RBC (Bld) [#/Vol] 5.08 10*6/uL Normal 3.80-5.20 [facility] Comment on above: Performed By: #### L [id number], [id number] ####Roof Foreman: STARLA KEEN ([id number])[facility])[address] [place] [address] WBC (Bld) [#/Vol] 10.1 10*3/uL Normal 3.6-10.7 [facility] Comment on above: Performed By: #### L [id number], [id number] ####Roof Foreman: STARLA KEEN ([id number])[facility])[address] [place] [address] COMPLETE URINALYSISon 2023 BACTERIA (#/HPF) IN URINE Moderate Abnormal Negative [facility] Comment on above: Performed By: #### L [id number] ####Roof Foreman: STARLA KEEN ([id number])[facility] ([facility])[address] [place] [address] BILIRUBIN, TOTAL PRESENCE IN URINE Negative Normal Negative [facility] Comment on above: Performed By: #### L [id number] ####Roof Foreman: STARLA KEEN ([id number])[facility] ([facility])[address] [place] [address] Clarity (U) Turbid Abnormal Clear [facility] Comment on above: Performed By: #### L [id number] ####Roof Foreman: STARLA KEEN ([id number])[facility])[address] [place] [address] Color (U) Yellow Normal Lt. Yellow [facility] Comment on above: Performed By: #### L [id number] ####Roof Foreman: STARLA KEEN ([id number])[facility] ([facility])[address] [place] [address] GLUCOSE (MG/DL) IN URINE Normal Normal Normal (<70) [facility] Comment on above: Performed By: #### L [id number] ####Roof Foreman: STARLA KEEN ([id number])[facility])[address] [place] [address] HEMOGLOBIN PRESENCE IN URINE Negative Normal Negative [facility] Comment on above: Performed By: #### L [id number] ####Roof Foreman: STARLA KEEN ([id number])[facility] ([facility])[address] [place] [address] HYALINE CASTS (#/LPF) IN URINE SEDIMENT BY MICROSCOPY Negative Normal Negative [facility] Comment on above: Performed By: #### L [id number] ####Roof Foreman: STARLA KEEN ([id number])[facility])[address] [place] [address] Ketones Ql (U) Negative Normal Negative [facility] Comment on above: Performed By: #### L [id number] ####Roof Foreman: STARLA KEEN ([id number])[facility] ([facility])[address] [place] [address] LEUKOCYTE ESTERASE PRESENCE IN URINE BY TEST STRIP 75 Adis/uL Abnormal Negative [facility] Comment on above: Performed By: #### L [id number] ####Roof Foreman: STARLA KEEN ([id number])[facility] ([facility])[address] [place] [address] [place] MUCUS (#/LPF) IN URINE SEDIMENT Few Normal Negative [facility] Comment on above: Performed By: #### L [id number] ####Roof Foreman: STARLA KEEN ([id number])[facility])[address] [place] [address] NITRITE PRESENCE IN URINE Positive Abnormal Negative [facility] Comment on above: Performed By: #### L [id number] ####Roof Foreman: STARLA KEEN ([id number])[facility])[address] [place] [address] pH (U) 5.5 [pH] Normal 5.0-8.0 [facility] Comment on above: Performed By: #### L [id number] ####Roof Foreman: STARLA KEEN ([id number])[facility])[address] [place] [address] Protein (U) [Mass/Vol] 50 mg/dL Abnormal Negative [facility] Comment on above: Performed By: #### L [id number] ####Roof Foreman: STARLA KEEN ([phone])[facility])[address] [place] [address] RBC (#/HPF) IN URINE SEDIMENT 3-5 Abnormal 0-2 [facility] Comment on above: Performed By: #### L [id number] ####Roof Foreman: STARLA KEEN ([id number])[facility])[address] [place] [address] Specific gravity (U) [Rel density] 1.020 Normal 1.005-1.03 0 [facility] Comment on above: Performed By: #### L [id number] ####Roof Foreman: STARLA KEEN ([id number])[facility] ([facility])[address] [place] [address] SQUAMOUS EPITHELIAL CELLS (#/HPF) IN URINE SEDIMENT 6-10 Abnormal 3-5 [facility] Comment on above: Performed By: #### L [id number] ####Roof Foreman: STARLA KEEN ([id number])[facility])[address] [place] [address] UROBILINOGEN (MG/DL) IN URINE Normal Normal Normal (0-1) [facility] Comment on above: Performed By: #### L [id number] ####Roof Foreman: STARLA KEEN ([id number])[facility] ([facility])[address] [place] [address] WBC (LEUKOCYTE) (#/HPF) IN URINE SEDIMENT 6-10 Abnormal 0-5 [facility] Comment on above: Performed By: #### L [id number] ####Roof Foreman: STARLA KEEN ([id number])[facility] ([facility])[address] [place] [address] COMPREHENSIVE METABOLIC PANE Mickey 05-10-2024 Albumin [Mass/Vol] 3.8 g/dL Normal 3.5-5.0 [facility] Comment on above: Performed By: #### L AB103, LAB99, LAB17 ####Roof Foreman: STARLA KEEN ([id number])[facility] ([facility])[address] [place] [address] ALP [Catalytic activity/Vol] 121 U/L Normal 38-126 [facility] Comment on above: Performed By: #### L AB103, LAB99, LAB17 ####Roof Foreman: STARLA KEEN ([id number])[facility])[address] [place] [address] ALT [Catalytic activity/Vol] 17 U/L Normal 0-34 [facility] Comment on above: Performed By: #### L AB103, LAB99, LAB17 ####Roof Foreman: STARLA KEEN ([id number])[facility] ([facility])[address] [place] [address] Anion gap [Moles/Vol] 8 mmol/L Normal 3-13 [facility] Comment on above: Performed By: #### L AB103, LAB99, LAB17 ####Roof Foreman: STARLA KEEN ([id number])[facility] ([facility])[address] [place] [address] AST [Catalytic activity/Vol] 20 U/L Normal 15-46 [facility] Comment on above: Performed By: #### L AB103, LAB99, LAB17 ####Roof Foreman: STARLA KEEN ([id number])[facility] ([facility])[address] [place] [address] Bilirubin [Mass/Vol] 0.5 mg/dL Normal 0.2-1.3 [facility] Comment on above: Performed By: #### Colleen RUIZ, LAB99, LAB17 ####Roof Foreman: STARLA KEEN ([phone])[facility] ([facility])[address] [place] [address] Calcium [Mass/Vol] 8.5 mg/dL Normal 8.4-10.4 [facility] Comment on above: Performed By: #### oClleen AB103, LAB99, LAB17 ####Roof Foreman: STARLA KEEN ([id number])[facility] ([facility])[address] [place] [address] [place] Chloride [Moles/Vol] 98 mmol/L Normal 98-107 [facility] Comment on above: Performed By: #### L AB103, LAB99, LAB17 ####Roof Foreman: STARLA KEEN ([id number])[facility] ([facility])[address] [place] [address] [place] CO2 [Moles/Vol] 23 mmol/L Normal 22-30 [facility] Comment on above: Performed By: #### L AB103, LAB99, LAB17 ####Roof Foreman: STARLA KEEN ([id number])[facility] ([facility])[address] [place] [address] [place] Creatinine [Mass/Vol] 0.73 mg/dL Normal 0.52-1.04 [facility] Comment on above: Performed By: #### Colleen RUIZ, LAB99, LAB17 ####Roof Foreman: STARLA KEEN ([phone])[facility])[address] [place] [address] GLOMERULAR FILTRATION RATE ML/MIN/1.73 SQ M.PREDICTED >90.0 Normal >60.0 [facility] Comment on above: Result Comment: Calc ulation based on the Chronic Kidney Disease Epidemiology Collaboration (CKD-EPI) equation refit without adjustment for race Performed By: #### Colleen RUIZ, LAB99, LAB17 ####Roof Foreman: STARLA KEEN ([phone])[facility] ([facility])[address] [place] [address] Glucose [Mass/Vol] 211 mg/dL High 70-100 [facility] Comment on above: Performed By: #### Colleen RUIZ LAB99, LAB17 ####Roof Foreman: STARLA KEEN ([phone])[facility] ([facility])[address] [place] [address] [place] Potassium [Moles/Vol] 4.7 mmol/L Normal 3.5-5.1 [facility] Comment on above: Performed By: #### Colleen RUIZ, LAB99, LAB17 ####Roof Foreman: STARLA KEEN ([id number])[facility] ([facility])[address] [place] [address] Protein [Mass/Vol] 7.5 g/dL Normal 6.3-8.2 [facility] Comment on above: Performed By: #### Colleen RUIZ, LAB99, LAB17 ####Roof Foreman: STARLA KEEN ([id number])[facility])[address] [place] [address] [place] Sodium [Moles/Vol] 129 mmol/L Low 135-145 [facility] Comment on above: Performed By: #### Colleen RUIZ, LAB99, LAB17 ####Roof Foreman: STARLA [id number])[facility] [place] [address] Urea nitrogen [Mass/Vol] 19 mg/dL High 7-17 [facility] Comment on above: Performed By: #### L AB103, LAB99, LAB17 ####Roof Foreman: STARLA KEEN ([id number])[facility] ([facility])[address] [place] [address] CREATININE, URINE, RANDOMon 05-10-2024 CREATININE, URINE 209.2 mg/dL Normal No Range [facility] Comment on above: Performed By: #### L AB420, [id number], [id number] ####Roof Foreman: STARLA KEEN ([id number])[facility] ([facility])[address] [place] [address] Comprehensive metabolic 1998 panelon 05-10-2024 Albumin [Mass/Vol] 3.8 g/dL 3.5 - 5.0 g/dL [facility] ALP [Catalytic activity/Vol] 121 U/L 38 - 126 U/L [facility] ALT [Catalytic activity/Vol] 17 U/L 0 - 34 U/L [facility] Anion gap [Moles/Vol] 8 mmol/L 3 - 13 mmol/L [facility] AST [Catalytic activity/Vol] 20 U/L 15 - 46 U/L [facility] Bilirubin [Mass/Vol] 0.5 mg/dL 0.2 - 1 .3 mg/dL [facility] Calcium [Mass/Vol] 8.5 mg/dL 8.4 - 10. 4 mg/dL [facility] Chloride [Moles/Vol] 98 mmol/L 98 - 10 7 mmol/L [facility] CO2 [Moles/Vol] 23 mmol/L 22 - 30 mmol/L [facility] Creatinine [Mass/Vol] 0.73 mg/dL 0.52 - 1.04 mg/dL [facility] GFR/1.73 sq M.predicted (S/P/Bld) [Vol rate/Area] - PINF [facility] Comment on above: Calculation based on the Chronic Kidney Disease Epidemiology Collaboration (CKD-EPI) equation refit without adjustment for race Glucose [Mass/Vol] 211 mg/dL High 70 - 100 mg/dL [facility] Interpretation and review of laboratory results Abnormal [facility] Potassium [Moles/Vol] 4.7 mmol/L 3.5 - 5.1 mmol/L [facility] Protein [Mass/Vol] 7.5 g/dL 6.3 - 8.2 g/dL [facility] Sodium [Moles/Vol] 129 mmol/L Low 135 - 145 mmol/L [facility] Urea nitrogen [Mass/Vol] 19 mg/dL High 7 - 17 mg/dL [facility] Creatinine (U) [Mass/Vol]on 05-10-2024 CREATININE, URINE 209.2 mg/dL No Range [facility] ED Nursing Noteon 05-10-2024 ED Nursing Note Pt transported to in stable condition on enhanced precautions by patient transport. Pt A&OX4. All patient belongings transported with patient to the floor. IV intact, patent, and heplocked. Normal [facility] ED Nursing Note Hand off report give n to Dayan SALDANA [facility] ED Nursing Note Report to SHANA Wild. Normal [facility] ED Nursing Note Hand off report give n to Karen SALDANA [facility] ED Nursing Note Report from SHANA Wild. Normal [facility] ED Nursing Note Rn answered call lig ht, patient asking for bed to be adjusted. Normal [facility] ED Nursing Note RN ordered patient a food tray at this time. Normal [facility] ED Nursing Note RN answered call lig ht patient said Sorry I haven't had diarrhea since I've been here RN educated on need for a stool sample if she does go but no reason to be sorry regarding her lack of diarrhea while in the ED. Patient in no acute distress, breathing is even and unlabored on room air. Normal [facility] ED Nursing Note RN responded to pt c all light, repositioned bed at this time, pt denies other needs currently. [facility] ED Nursing Note RN answered call lig ht, patient would like an update on her POC, RN notified. Dr. Estrella and Dr. العلي at this time. Normal [facility] ED Provider Noteon ED Provider Note EMERGENCY DEPARTMENT ENCOUNTER Pt Name: Bharat Manzanares Birthdate 1965 Date of evaluation: 05/10/2024 ED Provider: Jean Marie العلي DO CHIEF COMPLAINT Chief Complaint Patient presents with Diarrhea Pt from [facility], states they have an outbreak of Norovirus at the facility. Pt arrives with diarrhea for 1.5 days. Pt awake and alert on arrival. Pt also c/o knee pain chronic and a migraine. HISTORY OF PRESENT ILLNESS (Location/Symptom, Timing/Onset, Context/Setting, Quality, Duration, Modifying Factors, Severity) Note limiting factors. I wore appropriate PPE for the entirety of this encounter. HPI Bharat Manzanares is a 59 y.o. who presents to the emergency department from [facility] for the evaluation of diarrhea. Patient's symptoms started last night, reports an upward of 30 episodes of diarrhea since onset. Her facility recently had a norovirus outbreak. She also feels she has a fever, headache that feels like previous migraine, and abdominal pain but denies chest pain, shortness of breath, or urinary symptoms. Nursing Notes were reviewed. Limitations to history: None Outside historians: EMS REVIEW OF SYSTEMS Review of Systems Pertinent positives and negatives as per HPI. PAST MEDICAL HISTORY Past Medical History: Diagnosis Date Acoustic neuroma ([facility]) 11/28/2015 Overview: acoustic neuroma Onset Date: Jun 29, 2013 Allergic rhinitis Asthma Uncomplicated asthma Astigmatism 04/30/2016 Attention deficit disorder with hyperactivity 03/03/2018 Cerebral palsy ([facility]) CHF (congestive heart failure) ([facility]) ([facility]) Seen at [facility] Dr. 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 Diarrhea Dysphagia 07/09/2013 GERD (gastroesophageal reflux disease) Gingival and periodontal disease 07/09/2013 Hearing loss Hordeolum externum of left lower eyelid 05/03/2017 Hyperglycemia Hyperlipidemia Hypertension Hypoglycemia Hypothyroidism acquired Infantile cerebral palsy ([facility]) ([facility]) 07/09/2013 Overview: updated for 03/25 reg imo load Intractable migraine without aura 09/30/2001 Overview: updated for 03/25 reg imo load Irregular heartbeat Irregular heartbeat Learning disability Low compliance bladder 07/09/2013 Mental retardation 03/03/2018 Migraine Mixed stress and urge urinary incontinence 03/03/2018 Morbid obesity ([facility]) ([facility]) 07/09/2013 Myopia 04/30/2016 Neuropathy Nicotine dependence, cigarettes, with other nicotine-induced disorders Nuclear sclerotic cataract 04/30/2016 OAB (overactive bladder) 07/12/2015 Osteoarthritis Overactive bladder Parasomnia 07/09/2013 Polyneuropathy in diabetes ([facility]) ([facility]) 10/21/2002 Poor dentition Simple chronic bronchitis ([facility]) ([facility]) 07/12/2015 Stress incontinence in female 07/12/2015 Thyroid disease Tobacco abuse Type 2 diabetes mellitus ([facility]) Urinary incontinence 07/09/2013 Wears glasses SURGICAL HISTORY Past Surgical History: Procedure Laterality Date COLONOSCOPY DENTAL SURGERY 03/11/2020 extractions x4 DENTAL SURGERY N/A 03/11/2020 SURGICAL EXTRACTION OF TEETH 1, 2, 14, 16 performed by Mitch Mccall DDS at [facility] OR UPPER GASTROINTESTINAL ENDOSCOPY 12/01/2019 EGD BIOPSY performed by Olga Zeng MD at [facility] OR CURRENT MEDICATIONS Previous Medications No medications on file ALLERGIES Patient has no known allergies. FAMILY HISTORY Family History Problem Relation Name Age of Onset Cancer Paternal Grandfather Stroke Paternal Grandmother SOCIAL HISTORY Social History Socioeconomic History Marital status: Single Tobacco Use Smoking status: Every Day Current packs/day: 0.00 Types: Cigarettes Last attempt to quit: 09/15/2020 Years since quittin.6 Smokeless tobacco: Never Tobacco comments: Quit smoking: smokes occassionally Substance and Sexual Activity Alcohol use: No Alcohol/week: 0.0 standard drinks of alcohol Drug use: No Social Drivers of Health Financial Resource Strain: Low Risk (08/18/2022) Received from [facility] Overall Financial Resource Strain (CARDIA) Difficulty of Paying Living Expenses: Not very hard Food Insecurity: No Food Insecurity (02/06/2023) Received from [facility] Hunger Screening Within the past 12 months we worried whether our food would run out before we got money to buy more.: Never True Within the past 12 months the food we bought just didn't last and we didn't have money to get more.: Never True Transportation Needs: No Transportation Needs (08/18/2022) Received from [facility] PRAPARE - Transportation Lack of Transportation (Medical): No Lack of Transportation (Non-Medical): No Physical Activity: Inactive (08/18/2022) Received from [facility] Exercise Vital Sign Days of Exercise per Week: 0 days Minutes of Exercise per Sessio (more content not included)... Normal [facility] ED Provider Note Emergency Department Encounter [facility] EMERGENCY DEPT Patient: Bharat Manzanares : 1965 Date of Evaluation: 05/10/2024 ED Supervising Physician: Lynn Estrella DO I personally evaluated Bharat Manzanares and made/approved the management plan and take responsibility for the patient management. This will serve as my Supervisory note and shared attestation. I did perform a substantive portion of the visit including all aspects of the Medical Decision Making. I wore appropriate PPE for the entirety of this encounter. In brief, Bharat Manzanares is a 59 y.o. that presents to the emergency department from nursing facility with diarrhea. Reported that patient's facility has an outbreak of norovirus. Since yesterday patient has had greater than 30 episodes of nonbloody non tarry diarrhea. Endorses nausea without vomiting as well as generalized abdominal pain. No urinary symptoms, fevers, chest pain, dyspnea or other new symptoms. Focused exam: General: Alert, nontoxic-appearing Eyes: Conjunctiva normal Cardiac: Regular rhythm, normal rate Lungs: No respiratory distress, lungs clear to auscultation Abdomen: Soft, nontender, nondistended Extremities: No peripheral edema Skin: Warm and dry Neuro: no focal deficits Brief ED course/MDM: 59-year-old female presenting to the ED from nursing facility where there is an outbreak of norovirus. Patient is febrile at 38.1 ?C but hemodynamically stable and she is not tachycardic. C. difficile and GI panel was ordered as well as viral swabs and she is negative for COVID, flu and RSV. She does have a urinary tract infection which was treated with Rocephin. Labs show a hyponatremia of 129 however patient appears fluid overloaded on exam and chest x-ray shows interstitial edema therefore we held on fluids at this time as it may be a hypervolemic hyponatremia. Patient is also saturating 88% on room air and was placed on nasal cannula which is a new oxygen requirement. This may be due to her fluid overload. Will plan to admit for new oxygen requirement and monitoring as she may have a clinically worsened status with her profuse diarrhea. Diagnostics interpreted by me: Xray(s) pulmonary edema I personally discussed the patient's management with other clinicians: none All diagnostic, treatment, and disposition decisions were made by myself in conjunction with the Resident. I also supervised ramsey portions of any procedures performed by the Resident. For all further details of the patient's emergency department visit, please see their documentation. (Comment: Please note this report has been produced using speech recognition software and may contain errors related to that system including errors in grammar, punctuation, and spelling, as well as words and phrases that may be inappropriate. If there are any questions or concerns please feel free to contact the dictating provider for clarification.) Lynn Estrella, DO [employer] Lynn Estrella, DO 05/10/24 1713 Normal [facility] LIPASEon 05-10-2024 Lipase [Catalytic activity/Vol] 37 U/L Normal 23-300 [facility] Comment on above: Performed By: #### L [id number], [id number], LAB17 ####Roof Foreman: STARLA KEEN ([phone])[address] Laboratory - Chemistry and C hemistry - challengeon 05-10-2024 Glucose [Mass/Vol] 133 mg/dL High 70 - 100 mg/dL [facility] Sodium (24H U) [Mass/Vol] 17 mmol/L Low 30 - 90 mmol/L [facility] Osmolality [Osmolality] 287 mosm/kg [facility] Glucose [Mass/Vol] 155 mg/dL High 70 - 100 mg/dL [facility] Lipase [Catalytic activity/Vol] 37 U/L 23 - 300 U/L [facility] Magnesium [Mass/Vol] 1.7 mg/dL 1.6 - 2 .3 mg/dL [facility] Laboratory - Hematology and Cell countson 05-10-2024 Band form neutrophils (Bld) [#/Vol] 0.3 10*3/uL High NINF - 0.0 10*3/uL [facility] Band form neutrophils/100 WBC (Bld) 3 % High NINF - 0 % [facility] Eosinophils (Bld) [#/Vol] 0.2 10*3/uL 0.0 - 0.5 10*3/uL [facility] Eosinophils/100 WBC (Bld) 2 % 0 - 6 % [facility] Hypochromia Ql (Bld) Slight Abnormal (none) [facility] Lymphocytes (Bld) [#/Vol] 1 10*3/uL 1.0 - 4.3 10*3/uL [facility] Lymphocytes/100 WBC (Bld) 10 % Low 15 - 45 % [facility] Monocytes (Bld) [#/Vol] 0.6 10*3/uL 0.0 - 0.9 10*3/uL [facility] Monocytes/100 WBC (Bld) 6 % 5 - 13 % [facility] Neutrophils (Bld) [#/Vol] 8.3 10*3/uL High 1.8 - 7.5 10*3/uL [facility] Ovalocytes LM Ql (Bld) Slight Abnormal (none) [facility] Poikilocytosis LM Ql (Bld) Slight Abnormal (none) [facility] Polychromasia LM Ql (Bld) Slight Abnormal (none) [facility] RBC morphology finding Nom (Bld) abnormal [facility] Segmented neutrophils/100 WBC (Bld) 79 % 38 - 82 % [facility] Laboratory - Microbiology an d Antimicrobial susceptibilityon 05-10-2024 FLUAV RNA CYNTHIA+probe Ql (Resp) Not detected Not Detected [facility] FLUBV RNA CYNTHIA+probe Ql (Resp) Not detected Not Detected [facility] RSV RNA CYNTHIA+probe Ql (Resp) Not detected Not Detected [facility] SARS-CoV-2 (COVID-19) RNA CYNTHIA+probe Ql (Resp) Not detected Not Detected [facility] MAGNESIUMon 05-10-2024 Magnesium [Mass/Vol] 1.7 mg/dL Normal 1.6-2.3 [facility] Comment on above: Performed By: #### L [id number], [id number], LAB17 ####Roof Foreman: STARLA KEEN ([phone])[facility] ([facility])[address] [place] [address] MANUAL DIFFERENTIAL (CELLAVI ALVARO)on 05-10-2024 BAND NEUTROPHILS TOTAL PER COUNTED LEUKOCYTES BY MANUAL COUNT 3 Normal [facility] Comment on above: Performed By: #### L [id number], [id number] ####Roof Foreman: STARLA KEEN ([phone])[facility] ([facility])[address] [place] [address] [place] BANDS (10*3/UL) IN BLOOD-CELLAVISION 0.3 10*3/uL High <=0.0 [facility] Comment on above: Performed By: #### L [id number], [id number] ####Roof Foreman: STARLA KEEN ([phone])[facility] ([facility])[address] [place] [address] [place] BASOPHILS TOTAL PER COUNTED LEUKOCYTES BY MANUAL COUNT Normal [facility] Comment on above: Performed By: #### L [id number], [id number] ####Roof Foreman: STARLA KEEN ([phone])[facility] ([facility])[address] [place] [address] [place] BLASTS TOTAL PER COUNTED LEUKOCYTES BY MANUAL COUNT Normal [facility] Comment on above: Performed By: #### L [id number], [id number] ####Roof Foreman: STARLA KEEN ([phone])[facility] ([facility])[address] [place] [address] [place] EOSINOPHILS (10*3/UL) IN BLOOD-CELLAVISION 0.2 10*3/uL Normal 0.0-0.5 [facility] Comment on above: Performed By: #### L [id number], [id number] ####Roof Foreman: STARLA KEEN ([phone])[facility] ([facility])[address] [place] [address] [place] EOSINOPHILS TOTAL PER COUNTED LEUKOCYTES BY MANUAL COUNT 2 High 0-1 [facility] Comment on above: Performed By: #### L [id number], [id number] ####Roof Foreman: STARLA KEEN ([phone])[facility] ([facility])[address] [place] [address] [place] EOSINOPHILS/100 LEUKOCYTES IN BLOOD-CELLAVISION 2 % Normal 0-6 [facility] Comment on above: Performed By: #### L [id number], [id number] ####Roof Foreman: STARLA KEEN ([phone])[facility] ([facility])[address] [place] [address] [place] HYPOCHROMIA (PRESENCE) IN BLOOD BY LIGHT MICROSCOPY Slight Abnormal (none) [facility] Comment on above: Performed By: #### L [id number], [id number] ####Roof Foreman: STARLA KEEN ([phone])[facility] ([facility])[address] [place] [address] LYMPHOCYTES (10*3/UL) IN BLOOD-CELLAVISION 1.0 10*3/uL Normal 1.0-4.3 [facility] Comment on above: Performed By: #### L [id number], [id number] ####Roof Foreman: STARLA KEEN ([phone])[facility] ([facility])[address] [place] [address] LYMPHOCYTES TOTAL PER COUNTED LEUKOCYTES BY MANUAL COUNT 10 [facility] Comment on above: Performed By: #### L [id number], [id number] ####Roof Foreman: STARLA KEEN ([phone])[facility] ([facility])[address] [place] [address] [place] LYMPHOCYTES/100 LEUKOCYTES IN BLOOD-CELLAVISION 10 % Low 15-45 [facility] Comment on above: Performed By: #### L [id number], [id number] ####Roof Foreman: STARLA KEEN ([phone])[facility])[address] [place] [address] METAMYELOCYTES TOTAL PER COUNTED LEUKOCYTES BY MANUAL COUNT [facility] Comment on above: Performed By: #### L [id number], [id number] ####Roof Foreman: STARLA KEEN ([phone])[facility])[address] [place] [address] [place] MONOCYTES (10*3/UL) IN BLOOD-CELLAVISION 0.6 10*3/uL Normal 0.0-0.9 [facility] Comment on above: Performed By: #### L [id number], [id number] ####Roof Foreman: STARLA KEEN ([phone])[facility] ([facility])[address] [place] [address] [place] MONOCYTES TOTAL PER COUNTED LEUKOCYTES BY MANUAL COUNT 6 Normal [facility] Comment on above: Performed By: #### L [id number], [id number] ####Roof Foreman: STARLA KEEN ([phone])[facility] ([facility])[address] [place] [address] [place] MONOCYTES/100 LEUKOCYTES IN BLOOD-ZACKERY 6 % Normal 5-13 [facility] Comment on above: Performed By: #### L [id number], [id number] ####Roof Foreman: STARLA KEEN ([phone])[facility] ([facility])[address] [place] [address] [place] MYELOCYTES COUNTED BY MANUAL COUNT Normal [facility] Comment on above: Performed By: #### L [id number], [id number] ####Roof Foreman: STARLA KEEN ([phone])[facility] ([facility])[address] [place] [address] NEUTROPHILS BAND FORM/100 LEUKOCYTES IN BLOOD-CELLAVISI 3 % High <=0 [facility] Comment on above: Performed By: #### L [id number], [id number] ####Roof Foreman: STARLA KEEN ([phone])[facility] ([facility])[address] [place] [address] NEUTROPHILS TOTAL PER COUNTED LEUKOCYTES BY MANUAL COUNT 79 Normal [facility] Comment on above: Performed By: #### L [id number], [id number] ####Roof Foreman: STARLA KEEN ([phone])[facility] ([facility])[address] [place] [address] OVALOCYTES PRESENCE IN BLOOD BY LIGHT MICROSCOPY Slight Abnormal (none) [facility] Comment on above: Performed By: #### L [id number], [id number] ####Roof Foreman: STARLA KEEN ([phone])[facility])[address] [place] [address] POIKILOCYTOSIS (PRESENCE) IN BLOOD BY LIGHT MICROSCOPY Slight Abnormal (none) [facility] Comment on above: Performed By: #### L [id number], [id number] ####Roof Foreman: STARLA KEEN ([phone])[facility] ([facility])[address] [place] [address] [place] POLYCHROMASIA IN BLOOD BY LIGHT MICROSCOPY Slight Abnormal (none) [facility] Comment on above: Performed By: #### L [id number], [id number] ####Roof Foreman: STARLA KEEN ([id number])[facility] ([facility])[address] [place] [address] [place] PROMYELOCYTES TOTAL PER COUNTED LEUKOCYTES BY MANUAL COUNT Normal [facility] Comment on above: Performed By: #### L [id number], [id number] ####Roof Foreman: STARLA KEEN ([phone])[facility] ([facility])[address] [place] [address] RBC MORPHOLOGY IN BLOOD abnormal Normal [facility] Comment on above: Performed By: #### L [id number], [id number] ####Roof Foreman: STARLA KEEN ([phone])[facility] ([facility])[address] [place] [address] SEGMENTED NEUTROPHILS (10*3/UL) IN BLOOD-CELLAVISION 8.3 10*3/uL High 1.8-7.5 [facility] Comment on above: Performed By: #### L [id number], [id number] ####Roof Foreman: STARLA KEEN ([phone])[facility] ([facility])[address] [place] [address] [place] SEGMENTED NEUTROPHILS/100 LEUKOCYTES-CE 79 % Normal 38-82 [facility] Comment on above: Performed By: #### L [id number], [id number] ####Roof Foreman: STARLA KEEN ([phone])[facility] ([facility])[address] [place] [address] [place] UNCLASSIFIED CELLS TOTAL PER COUNTED LEUKOCYTES BY MANUAL COUNT Normal [facility] Comment on above: Performed By: #### L [id number], [id number] ####Roof Foreman: STARLA KEEN ([phone])[facility] ([facility])[address] [place] [address] [place] VARIANT LYMPHOCYTES TOTAL PER COUNTED LEUKOCYTES BY MANUAL COUNT Normal [facility] Comment on above: Performed By: #### L [id number], [id number] ####Roof Foreman: STARLA KEEN ([id number])[facility] ([facility])[address] [place] [address] NT PRO BNPon 05-10-2024 Natriuretic peptide B (Bld) [Mass/Vol] 243 pg/mL High <125 [facility] Comment on above: Performed By: #### L [id number] ####Roof Foreman: STARLA KEEN ([phone])[facility] ([facility])[address] [place] [address] Natriuretic peptide B [Mass/ Vol]Ordered By: Violetta Hodges on 05-10-2024 Interpretation and review of laboratory results Abnormal [facility] Natriuretic peptide B (Bld) [Mass/Vol] 243 pg/mL High NINF - 125 pg/mL [facility] No Panel Informationon 05-10 Interpretation and review of laboratory results Abnormal [facility] Performed by: [facility], [address] [place] [address] CLIA ID: [id number] [facility] Interpretation and review of laboratory results Abnormal [facility] Interpretation and review of laboratory results Normal [facility] OSMOLALITY, URINE 828 [facility] ealth [facility] Interpretation and review of laboratory results Normal [facility] Interpretation and review of laboratory results Abnormal [facility] Performed by: [facility], [address] [place] [address] CLIA ID: [id number] [facility] Atypical Lymphocytes Manual [facility] Health Bands Manual 3 [facility] Basophils Manual [facility] He alth Blasts Manual [facility] Healt h Eosinophils Manual 2 High 0 - 1 [facility] Interpretation and review of laboratory results Abnormal [facility] Lymphocytes Manual 10 [facility] Health Metamyelocytes Manual [facility] Monocytes Manual 6 [facility] He alth Myelocytes Manual [facility] ealth Neutrophils Manual 79 [facility] Promyelocytes Manual [facility] Unclassified Cells, Manual [facility] Interpretation and review of laboratory results Normal [facility] OSMOLALITY, SERUMon 05-10-20 24 OSMOLALITY, SERUM 287 mOsm/kg Normal 280-300 [facility] Comment on above: Performed By: #### L [id number] ####Roof Foreman: STARLA KEEN ([phone])[facility] ([facility])[address] [place] [address] OSMOLALITY, URINEon 05-10-20 24 OSMOLALITY, URINE 828 mOsm/kg Normal 300-1000 [facility] Comment on above: Performed By: #### L [id number], [id number], [id number] ####Roof Foreman: STARLA KEEN ([phone])[facility] ([facility])[address] [place] [address] RESPIRATORY PATHOGENS PANEL BY PCRon 05-10-2024 RESPIRATORY PATHOGENS PANEL BY PCR SARS-COV-2 Reference Not Detected Not Detected ADENOVIRUS Reference Not Detected Not Detected CORONAVIRUS HKU1 Reference Not Detected Not Detected CORONAVIRUS NL63 Reference Not Detected Not Detected CORONAVIRUS 229E Reference Not Detected Not Detected CORONAVIRUS OC43 Reference Not Detected Not Detected HUMAN METAPNEUMOVIRUS Reference Not Detected Not Detected HUMAN RHINOVIRUS/ENTEROVIRUS Reference Not Detected Not Detected INFLUENZA A Reference Not Detected Not Detected INFLUENZA B Reference Not Detected Not Detected PARAINFLUENZA 1 Reference Not Detected Not Detected PARAINFLUENZA 2 Reference Not Detected Not Detected PARAINFLUENZA 3 Reference Not Detected Not Detected PARAINFLUENZA 4 Reference Not Detected Not Detected RESPIRATORY SYNCYTIAL VIRUS Reference Not Detected Not Detected BORDETELLA PERTUSSIS Reference Not Detected Not Detected BORDETELLA PARAPERTUSSIS Reference Not Detected Not Detected CHLAMYDIA PNEUMONIAE Reference Not Detected Not Detected MYCOPLASMA PNEUMONIAE Reference Not Detected Not Detected ORDER COMMENTS: Methodology: Multiplex PCR Normal [facility] Comment on above: Performed By: #### L [id number] ####Roof Foreman: STARLA KEEN ([phone])[facility] ([facility])[address] [place] [address] Respiratory pathogens DNA an d RNA panel CYNTHIA+non-probe (Nph)on 05-10-2024 Adenovirus Not detected Not Detected [facility] B. pertussis DNA CYNTHIA+probe Ql (Unsp spec) Not detected Not Detected [facility] Bordetella parapertussis Not detected Not Detected [facility] Chlamydia pneumoniae Not detected Not Detected [facility] Coronavirus 229E Not detected Not Detected [facility] Coronavirus HKU1 Not detected Not Detected [facility] Coronavirus NL63 Not detected Not Detected [facility] Coronavirus OC43 Not detected Not Detected [facility] FLUAV RNA CYNTHIA+non-probe Ql (Nph) Not detected Not Detected [facility] FLUBV RNA CYNTHIA+non-probe Ql (Nph) Not detected Not Detected [facility] Human Metapneumovirus Not detected Not Detected [facility] Human Rhinovirus/Enterovirus Not detected Not Detected [facility] Interpretation and review of laboratory results Normal [facility] Mycoplasma pneumoniae Not detected Not Detected [facility] Parainfluenza 1 Not detected Not Detected [facility] Parainfluenza 2 Not detected Not Detected [facility] Parainfluenza 3 Not detected Not Detected [facility] Parainfluenza 4 Not detected Not Detected [facility] Respiratory Syncytial Virus Not detected Not Detected [facility] SARS-CoV-2 (COVID-19) RNA CYNTHIA+non-probe Ql (Nph) Not detected Not Detected [facility] Methodology: Multipl ex PCR [facility] SARS-COV-2, FLU A/B, AND RSV COMBOon 05-10-2024 SARS-CoV-2 (COVID-19) RNA CYNTHIA+probe Ql (Unsp spec) SARS-COV-2 Reference Not Detected Not Detected RESPIRATORY SYNCYTIAL VIRUS Reference Not Detected Not Detected INFLUENZA A (CEPHEID) Reference Not Detected Not Detected INFLUENZA B (CEPHEID) Reference Not Detected Not Detected ORDER COMMENTS: Methodology: real-time, RT-PCR Normal [facility] Comment on above: Performed By: #### L [id number] #### Roof Foreman: STARLA KEEN ([id number]) [facility] ([facility]) [address] [place] [address] SARS-CoV-2, Flu A/B, and RSV Comboon 05-10-2024 Interpretation and review of laboratory results Normal [facility] Methodology: real-ti me, RT-PCR [facility] SODIUM, URINE, RANDOMon 12- Sodium (U) [Moles/Vol] 17 mmol/L Low 30-90 [facility] Comment on above: Performed By: #### L [id number], [id number], [id number] ####Roof Foreman: STARLA KEEN ([id number])[facility] ([facility] [place] [address] URINE CULTUREon 05-10-2024 Bacteria identified Cx Nom (U) URINE CULTURE Reference Normal urogenital luisa present ESCHERICHIA COLI >100,000 CFU/mL Escherichia coli (A) Organism: ESCHERICHIA COLI Antibiotic CHAVO Interpretation Status Amoxicillin / Clavulanate 8 ug/ml S F Ampicillin >=32 ug/ml R F Ampicillin / Sulbactam >=32 ug/ml R F Aztreonam <=1 ug/ml S F Cefazolin <=4 ug/ml S F Cefepime <=1 ug/ml S F Ceftriaxone <=1 ug/ml S F Ciprofloxacin 1 ug/ml S F Gentamicin <=1 ug/ml S F Meropenem <=0.25 ug/ml S F Nitrofurantoin <=16 ug/ml S F Piperacillin / Tazobactam <=4 ug/ml S F Trimethoprim / Sulfamethoxazole >=320 ug/ml R F [ S = SUSCEPTIBLE R = RESISTANT I = INTERMEDIATE S-DD = Susceptible-dose dependent NS = Non-susceptible NO = No Interpretation ] Normal [facility] Comment on above: Performed By: #### L [id number] ####Roof Foreman: STARLA KEEN ([id number])[facility] ([id number] Urinalysis complete panel (U )on 05-10-2024 Bacteria LM.HPF (Urine sed) [#/Area] Moderate Abnormal Negative /HPF [facility] Bilirubin Ql (U) Negative Negative mg/dL [facility] Clarity (U) Turbid Abnormal Clear [facility] Color (U) Yellow Lt. Yellow [facility] Epithelial cells.squamous LM.HPF (Urine sed) [#/Area] 6-10 Abnormal [facility] Glucose Ql (U) Normal Normal (<70) mg/dL [facility] Hemoglobin Ql (U) Negative Negative mg/dL [facility] Hyaline casts Auto (Urine sed) [#/Area] Negative Negative /LPF [facility] Interpretation and review of laboratory results Abnormal [facility] Ketones (U) [Mass/Vol] Negative Negat river mg/dL [facility] Leukocyte esterase Test strip Ql (U) 75 Abnormal Negative Adis/uL [facility] Mucus LM.HPF (Urine sed) [#/Area] Few Negative /LPF [facility] Nitrite Ql (U) Positive Abnormal Negative [facility] th pH (U) 5.5 [pH] 5.0 - 8.0 pH [facility] Protein (U) [Mass/Vol] 50 mg/dL Abnormal Negative [facility] RBC LM.HPF (Urine sed) [#/Area] 3-5 Abnormal [facility] Specific gravity (U) [Rel density] 1.02 1.005 - 1.030 [facility] Urobilinogen (U) [Mass/Vol] Normal Normal (0-1) mg/dL [facility] WBC LM.HPF (Urine sed) [#/Area] 6-10 Abnormal [facility] XR Chest Single viewon 05-10 Pulmonary vascular congestion with interstitial edema. Report Dictated on Electronically Signed By: Jessica Link MD Electronically Signed Date/Time: 05/10/2024 11:26 AM EST [facility] Patient Name: BHARAT MANZANARES : 1965 Exam Date/Time: 05/10/2024 11:13 Procedure: XR CHEST 1 VIEW Ordering Provider: ESTRELLA MEJGON Reason For Exam: hypoxic, febrile PORTABLE CHEST CLINICAL INDICATION: hypoxic, febrile TECHNIQUE: Portable AP COMPARISON: None FINDINGS: Pulmonary vascular congestion and interstitial edema. No sizable pleural effusions or pneumothorax. The cardiac and mediastinal silhouettes are normal. The osseous structures are unremarkable. [facility] Jessica Link MD - 05/10/2024 Patient Name: BHARAT MANZANARES : 1965 Exam Date/Time: 05/10/2024 11:13 Procedure: XR CHEST 1 VIEW Ordering Provider: ESTRELLA MEJGON Reason For Exam: hypoxic, febrile PORTABLE CHEST CLINICAL INDICATION: hypoxic, febrile TECHNIQUE: Portable AP COMPARISON: None FINDINGS: Pulmonary vascular congestion and interstitial edema. No sizable pleural effusions or pneumothorax. The cardiac and mediastinal silhouettes are normal. The osseous structures are unremarkable. IMPRESSION: Pulmonary vascular congestion with interstitial edema. Report Dictated on Electronically Signed By: Jessica Link MD Electronically Signed Date/Time: 05/10/2024 11:26 AM EST [facility] Radiology Study observation (narrative) Robbin Barraza [facility] XR Chest Single viewOrdered By: Jessica Link on 05-10-2024 [facility] [employer] Work Phone: Arterial Blood Gases (B)on 0 10-07-2023 LI, Arterial (B) 10.3 mmol/L High -2.0-2.0 [facility] Comment on above: Order Comment: The c alculated GFR uses the (IDMS)-traceable creatinine MDRD equation and is reported in mL/min/1.73 square meters. This formula is not recommended for use with individuals with unstable creatinine concentrations, extremes in muscle mass and/or body size, or alternative diets and may not be suitable for all patient populations. Testing performed at [facility], [address] [place] [address] CO2 [Moles/Vol] 78.7 mmol/L High 24.0-30.0 [facility] Comment on above: Order Comment: The c alculated GFR uses the (IDMS)-traceable creatinine MDRD equation and is reported in mL/min/1.73 square meters. This formula is not recommended for use with individuals with unstable creatinine concentrations, extremes in muscle mass and/or body size, or alternative diets and may not be suitable for all patient populations. Testing performed at [facility], [address] [place] [address] Draw Site (B) Left Brachial Normal [facility] Comment on above: Order Comment: The c alculated GFR uses the (IDMS)-traceable creatinine MDRD equation and is reported in mL/min/1.73 square meters. This formula is not recommended for use with individuals with unstable creatinine concentrations, extremes in muscle mass and/or body size, or alternative diets and may not be suitable for all patient populations. Testing performed at [facility], [address] [place] [address]76 HCO3 (Bld) [Moles/Vol] 37.9 mmol/L High 22.0-26.0 [facility] Comment on above: Order Comment: The c alculated GFR uses the (IDMS)-traceable creatinine MDRD equation and is reported in mL/min/1.73 square meters. This formula is not recommended for use with individuals with unstable creatinine concentrations, extremes in muscle mass and/or body size, or alternative diets and may not be suitable for all patient populations. Testing performed at [facility], [address] [place] [address] O2 Amt Admin (B) 100% Normal [facility] Comment on above: Order Comment: The c alculated GFR uses the (IDMS)-traceable creatinine MDRD equation and is reported in mL/min/1.73 square meters. This formula is not recommended for use with individuals with unstable creatinine concentrations, extremes in muscle mass and/or body size, or alternative diets and may not be suitable for all patient populations. Testing performed at [facility], [facility] [place] [address] O2 Delivery (B) Ventilator Normal [facility] Comment on above: Order Comment: The c alculated GFR uses the (IDMS)-traceable creatinine MDRD equation and is reported in mL/min/1.73 square meters. This formula is not recommended for use with individuals with unstable creatinine concentrations, extremes in muscle mass and/or body size, or alternative diets and may not be suitable for all patient populations. Testing performed at [facility], [address] [place] [address] PCO2, Arterial (B) 66.7 mm[Hg] High 35.0-45.0 [facility] Comment on above: Order Comment: The c alculated GFR uses the (IDMS)-traceable creatinine MDRD equation and is reported in mL/min/1.73 square meters. This formula is not recommended for use with individuals with unstable creatinine concentrations, extremes in muscle mass and/or body size, or alternative diets and may not be suitable for all patient populations. Testing performed at [facility], [address] [place] [address] PH, Arterial (B) 7.36 Normal 7.35-7.45 [facility] Comment on above: Order Comment: The c alculated GFR uses the (IDMS)-traceable creatinine MDRD equation and is reported in mL/min/1.73 square meters. This formula is not recommended for use with individuals with unstable creatinine concentrations, extremes in muscle mass and/or body size, or alternative diets and may not be suitable for all patient populations. Testing performed at [facility], [address] [place] [address] PO2, Arterial (B) >420 High 80.0-100.0 [facility] Comment on above: Order Comment: The c alculated GFR uses the (IDMS)-traceable creatinine MDRD equation and is reported in mL/min/1.73 square meters. This formula is not recommended for use with individuals with unstable creatinine concentrations, extremes in muscle mass and/or body size, or alternative diets and may not be suitable for all patient populations. Testing performed at [facility], [address] [place] [address] SO2, Arterial (B) >99 Normal 95.0-100.0 [facility] Comment on above: Order Comment: The c alculated GFR uses the (IDMS)-traceable creatinine MDRD equation and is reported in mL/min/1.73 square meters. This formula is not recommended for use with individuals with unstable creatinine concentrations, extremes in muscle mass and/or body size, or alternative diets and may not be suitable for all patient populations. Testing performed at [facility], [address] [place] [address] TABATHA (B) [facility] Comment on above: Order Comment: Testi ng performed at [facility], [address] [place] [address] Draw Site (B) Left Radial [facility] Comment on above: Order Comment: Testi ng performed at [facility], [address] [place] [address] O2 Amt Admin (B) [address] [facility] Comment on above: Order Comment: Testi ng performed at [facility], [address] [place] [address] O2 Delivery (B) Nasal Cannula [facility] Comment on above: Order Comment: Testi ng performed at [facility], [address] [facility] [place] [address] PCO2, Arterial (B) >100 Critically high 35.0-45.0 [facility] Comment on above: Order Comment: Testi ng performed at [facility], [address] [facility] [place] [address] Result Comment: Unab le to calculate LI, HCO3, and TCO2 due to high PCO2 PH, Arterial (B) 7.16 Critically low 7.35-7.45 [facility] Comment on above: Order Comment: Testi ng performed at [facility], [address] [place] [place] [address] PO2, Arterial (B) 118.0 mm[Hg] High 80.0-100.0 [facility] Comment on above: Order Comment: Testi ng performed at [facility], [address] [place] [address] SO2, Arterial (B) 98.6 % Normal 95.0-100.0 [facility] Comment on above: Order Comment: Testi ng performed at [facility], [address] [place] [place] [address] TABATHA () [facility] Comment on above: Order Comment: Testi ng performed at [facility], [address] [facility] [place] [address] Draw Site (B) Left Radial [facility] Comment on above: Order Comment: Testi ng performed at [facility], [address] [place] [address] O2 Amt Admin (B) 40% Normal [facility] Comment on above: Order Comment: Testi ng performed at [facility], [address] [place] [place] [address] O2 Delivery (B) [facility] Comment on above: Order Comment: Testi ng performed at [facility], [address] [place] [address] PCO2, Arterial (B) >100 Critically high 35.0-45.0 [facility] Comment on above: Order Comment: Testi ng performed at [facility], [address] [place] [address] Result Comment: Unab le to calculate LI, HCO3, and TCO2 due to high PCO2 PH, Arterial (B) 7.19 Critically low 7.35-7.45 [facility] Comment on above: Order Comment: Testi ng performed at [facility], [address] [facility] [place] [address] PO2, Arterial (B) 59.9 mm[Hg] Low 80.0-100.0 [facility] Comment on above: Order Comment: Testi ng performed at [facility], [address] [place] [address] SO2, Arterial (B) 88.5 % Low 95.0-100.0 [facility] Comment on above: Order Comment: Testi ng performed at [facility], [address] [place] [address] TABATHA (B) [facility] Comment on above: Order Comment: Testi ng performed at [facility], [address] [facility] [place] [address] Draw Site (B) Left Radial [facility] Comment on above: Order Comment: Testi ng performed at [facility], [address] [place] [place] [address] O2 Amt Admin (B) 50% Normal [facility] Comment on above: Order Comment: Testi ng performed at [facility], [address] [place] [address] O2 Delivery (B) Venturi Mask Normal [facility] Comment on above: Order Comment: Testi ng performed at [facility], [address] [facility] [place] [address] PCO2, Arterial (B) >100 Critically high 35.0-45.0 [facility] Comment on above: Order Comment: Testi ng performed at [facility], [address] [facility] [place] [address] Result Comment: Unab le to calculate LI, HCO3, and TCO2 due to high PCO2 PH, Arterial (B) 7.14 Critically low 7.35-7.45 [facility] Comment on above: Order Comment: Testi ng performed at [facility], [address] [place] [address] PO2, Arterial (B) 79.5 mm[Hg] Low 80.0-100.0 [facility] Comment on above: Order Comment: [facility], [address] [place] [address] SO2, Arterial (B) 94.3 % Low 95.0-100.0 [facility] Comment on above: Order Comment: Testi ng performed at [facility], [address] [place] [address] C-Reactive Proteinon 024 CRP [Mass/Vol] 59.4 mg/L High 0.0-10.0 [facility] Comment on above: Order Comment: Testi ng performed at [facility], [address] [place] [address] CBC w/Auto Diffon 10-07-2023 Basophils (Bld) [#/Vol] 0.03 10*3/uL Normal 0.00-0.10 [facility] Comment on above: Order Comment: Testi ng performed at [facility], [address] [place] [address] Basophils/100 WBC (Bld) 0.2 % Normal 0.1-1.2 [facility] Comment on above: Order Comment: Testi ng performed at [facility], [address] [place] [address]111 Eosinophils (Bld) [#/Vol] 0.01 10*3/uL Normal 0.00-0.40 [facility] Comment on above: Order Comment: Testi ng performed at [facility], [address] [place] [address] 8[address]12 Eosinophils/100 WBC (Bld) 0.1 % Low 0.7-5.8 [facility] Comment on above: Order Comment: [facility] [address] [place] [address] Erythrocyte distribution width (RBC) [Ratio] 17.1 % High 11.7-14.4 [facility] Comment on above: Order Comment: [facility], [address] [place] [address] 14987 Hematocrit (Bld) [Volume fraction] 37.9 % Normal 34.1-44.9 [facility] Comment on above: Order Comment: [facility], [address] [place] [address] Hemoglobin (Bld) [Mass/Vol] 10.6 g/dL Low 11.2-15.7 [facility] Comment on above: Order Comment: [facility], [address] [place] [address] 33801 IG % (B) 6.2 % High 0.0-0.4 [facility] Comment on above: Order Comment: [facility], [address] [place] [address] IG# (B) 0.93 10*3/uL High 0.00-0.00 [facility] Comment on above: Order Comment: [facility], [address] [place] [address] 77857 Lymphocytes (Bld) [#/Vol] 0.92 10*3/uL Low 1.20-3.70 [facility] Comment on above: Order Comment: [facility], [address] [place] [address] 35873 Lymphocytes/100 WBC (Bld) 6.2 % Low 19.3-51.7 [facility] Comment on above: Order Comment: [facility], [address] [place] [address] 42365 MCH (RBC) [Entitic mass] 23.6 pg Low 25.6-32.2 [facility] Comment on above: Order Comment: Testi ng performed at [facility], [address] [place] [address]018 MCHC (RBC) [Mass/Vol] 28.0 g/dL Low 32.2-35.5 [facility] Comment on above: Order Comment: Testi ng performed at [facility], [address] [place] [address] 21390 MCV (RBC) [Entitic vol] 84.2 fL Normal 79.4-94.8 [facility] Comment on above: Order Comment: Test[facility] performed [facility], [address] [place] [address] 78257 Monocytes (Bld) [#/Vol] 0.44 10*3/uL Normal 0.20-0.90 [facility] Comment on above: Order Comment: [facility], [address] [place] [address] 02787 Monocytes/100 WBC (Bld) 2.9 % Low 4.7-12.5 [facility] Comment on above: Order Comment: Testi ng performed at [facility], [address] [place] [address] 98573 Neutrophils (Bld) [#/Vol] 12.59 10*3/uL High 1.60-6.10 [facility] Comment on above: Order Comment: Testi ng performed at [facility], [address] [place] [address] 71985 Neutrophils/100 WBC (Bld) 84.4 % High 34.0-71.1 [facility] Comment on above: Order Comment: Testi ng performed at [facility], [address] [place] [address] 76308 NRBC % (B) 0.1 /100{WBC} Normal 0.0-0.2 [facility] Comment on above: Order Comment: Testi ng performed at [facility], [address] [place] [address]8837 NRBC# (B) 0.02 10*3/uL High 0.00-0.00 [facility] Comment on above: Order Comment: Testi ng performed at [facility], [address] [place] [address] 30640 Platelet mean volume (Bld) [Entitic vol] 9.3 fL Low 9.4-12.3 [facility] Comment on above: Order Comment: Testi ng performed at [facility], [address] [place] [address] 82515 Platelets (Bld) [#/Vol] 231 10*3/uL Normal 182-369 [facility] Comment on above: Order Comment: [facility], [address] [place] [address] 01323 RBC (Bld) [#/Vol] 4.50 10*6/uL Normal 3.93-5.22 [facility] Comment on above: Order Comment: Testi ng performed at [facility], [address] [place] [address] 11404 RDW-SD (B) 52.0 fL High 36.4-46.3 [facility] Comment on above: Order Comment: Testi ng performed at [facility], [address] [place] [address] 07403 WBC (Bld) [#/Vol] 14.9 10*3/uL High 4.0-10.0 [facility] Comment on above: Order Comment: Testi ng performed at [facility], [address] [place] [address] 19674 Comp Metabolic Profileon Albumin [Mass/Vol] 3.7 g/dL Normal 3.5-5.0 [facility] Comment on above: Order Comment: Testi ng performed at [facility], [address] [place] [address] 10249 ALP [Catalytic activity/Vol] 151 U/L High 38-126 [facility] Comment on above: Order Comment: Testi ng performed at [facility], [address] [place] [address] 74727 ALT [Catalytic activity/Vol] 33 U/L Normal <35 [facility] Comment on above: Order Comment: Testi ng performed at [facility], [address] [place] [address]40 Result Comment: ALT test method is traceable to the IFCC recommended reference method. ANIO 9 mmol/L Low 12-20 [facility] Comment on above: Order Comment: [facility], [address] [place] [address] AST [Catalytic activity/Vol] 33 U/L Normal 15-46 [facility] Comment on above: Order Comment: Test[facility], [address] [place] [address] BILI-T 0.5 mg/dL Normal 0.2-1.3 [facility] Comment on above: Order Comment: [facility], [address] [place] [address] Calcium [Mass/Vol] 8.2 mg/dL Low 8.4-10.2 [facility] Comment on above: Order Comment: Testi ng performed at [facility], [facility] [place] [address] Chloride [Moles/Vol] 91 mmol/L Low 98-107 [facility] Comment on above: Order Comment: Testi ng performed at [facility], [facility] [place] [address] CO2 [Moles/Vol] 38.0 mmol/L High 22.0-30.0 [facility] Comment on above: Order Comment: Testi ng performed at [facility], [facility] [place] [address] Creatinine [Mass/Vol] 0.8 mg/dL Normal 0.6-1.2 [facility] Comment on above: Order Comment: Testi ng performed at [facility], [address] [place] [address] Glucose [Mass/Vol] 345 mg/dL High 74-106 [facility] Comment on above: Order Comment: Testi ng performed at [facility], [address] [place] [address] Potassium [Moles/Vol] 5.2 mmol/L High 3.3-4.9 [facility] Comment on above: Order Comment: Testi ng performed at [facility], [address] [place] [address] PRO-T 7.1 g/dL Normal 6.3-8.2 [facility] Comment on above: Order Comment: Testi ng performed at [facility], [address] [place] [address] Result Comment: Eltrombopag and its metabolites may interfere with the Total Protein assay causing erroneously high results. Sodium [Moles/Vol] 133 mmol/L Low 137-145 [facility] Comment on above: Order Comment: Testi ng performed at [facility], [address] [place] [address] 15661 Urea nitrogen [Mass/Vol] 31 mg/dL High 8-19 [facility] Comment on above: Order Comment: Testi ng performed at [facility], [address] [place] [address] 84661 ECHO COMPLETEon 10-07-2023 ECHO COMPLETE Technically difficul t study due to patient body habitus and patient's clinical status. Normal left ventricular systolic function. 2D Fermin's biplane EF 66% with normal wall motion. There is normal diastolic function. Right ventricle cavity size is mildly dilated. Systolic function is normal. Moderate biatrial enlargement. There is mild mitral valve regurgitation. There is trace tricuspid valve regurgitation. Unable to estimate RVSP due to lack of measurable TR jet. Pericardial fat pad present. There is no pericardial effusion. No previous echo for comparison. Normal [facility] EST Glomerular Filtration Ra zion 10-07-2023 EAGFR (B) >60 Normal >60 [facility] Comment on above: Order Comment: The c alculated GFR uses the (IDMS)-traceable creatinine MDRD equation andis reported in mL/min/1.73 square meters. This formula is not recommendedfor use with individuals with unstable creatinine concentrations, extremesin muscle mass and/or body size, or alternative diets and may not be suitablefor all patient populations.Testing performed at [facility], [address] [place] [address] [id number] Result Comment: The reported eGFR is based on a non- patient, for Americans multiply the result by 1.212. Man Diffon 10-07-2023 Basophils/100 WBC (Bld) 1 % Normal 0-1 [facility] Comment on above: Order Comment: Testi ng performed at [facility], [address] [place] [address] Lymphocytes/100 WBC (Bld) 12 % Low 20-53 [facility] Comment on above: Order Comment: Testi ng performed at [facility], [address] [place] [address] META 2 % High 0-0 [facility] Comment on above: Order Comment: Testi ng performed at [facility], [address] [place] [address] [place], Diff 6 % Normal 5-12 [facility] Comment on above: Order Comment: Testi ng performed at [facility], [address] [place] [address] Segs. Diff 79 % High 34-70 [facility] Comment on above: Order Comment: Testi ng performed at [facility], [address] [place] [address] Slide Scan Normal Normal Normal [facility] Comment on above: Order Comment: Testi ng performed at [facility], [address] [place] [address], [place] [address] Urinalysis w/rfx Cultureon 0 10-07-2023 Appearance (U) Clear Normal Clear [facility] Comment on above: Order Comment: The c alculated GFR uses the (IDMS)-traceable creatinine MDRD equation and is reported in mL/min/1.73 square meters. This formula is not recommended for use with individuals with unstable creatinine concentrations, extremes in muscle mass and/or body size, or alternative diets and may not be suitable for all patient populations. Testing performed at [facility], [address] [place] [address] Bilirubin Ql (U) Negative Normal Negative [facility] Comment on above: Order Comment: The c alculated GFR uses the (IDMS)-traceable creatinine MDRD equation and is reported in mL/min/1.73 square meters. This formula is not recommended for use with individuals with unstable creatinine concentrations, extremes in muscle mass and/or body size, or alternative diets and may not be suitable for all patient populations. Testing performed at [facility], [address] [place] [address] Color (U) Yellow Normal [facility] Comment on above: Order Comment: The c alculated GFR uses the (IDMS)-traceable creatinine MDRD equation and is reported in mL/min/1.73 square meters. This formula is not recommended for use with individuals with unstable creatinine concentrations, extremes in muscle mass and/or body size, or alternative diets and may not be suitable for all patient populations. Testing performed at [facility], [address] [place] [address] 82872 Glucose Ql (U) Negative Normal Negative [facility] Comment on above: Order Comment: The c alculated GFR uses the (IDMS)-traceable creatinine MDRD equation and is reported in mL/min/1.73 square meters. This formula is not recommended for use with individuals with unstable creatinine concentrations, extremes in muscle mass and/or body size, or alternative diets and may not be suitable for all patient populations. Testing performed at [facility], [address] [place] [address] Hemoglobin Ql (U) Trace Abnormal Negative [facility] Comment on above: Order Comment: The c alculated GFR uses the (IDMS)-traceable creatinine MDRD equation and is reported in mL/min/1.73 square meters. This formula is not recommended for use with individuals with unstable creatinine concentrations, extremes in muscle mass and/or body size, or alternative diets and may not be suitable for all patient populations. Testing performed at [facility], [address] [place] [address] Ketone Negative Normal Negative [facility] Comment on above: Order Comment: The c alculated GFR uses the (IDMS)-traceable creatinine MDRD equation and is reported in mL/min/1.73 square meters. This formula is not recommended for use with individuals with unstable creatinine concentrations, extremes in muscle mass and/or body size, or alternative diets and may not be suitable for all patient populations. Testing performed at [facility], [address] [place] [address] Leuk Negative Normal Negative [facility] Comment on above: Order Comment: The c alculated GFR uses the (IDMS)-traceable creatinine MDRD equation and is reported in mL/min/1.73 square meters. This formula is not recommended for use with individuals with unstable creatinine concentrations, extremes in muscle mass and/or body size, or alternative diets and may not be suitable for all patient populations. Testing performed at [facility], [address] [place], [place] [address] Nitrite Ql (U) Negative Normal Negative [facility] Comment on above: Order Comment: The c alculated GFR uses the (IDMS)-traceable creatinine MDRD equation and is reported in mL/min/1.73 square meters. This formula is not recommended for use with individuals with unstable creatinine concentrations, extremes in muscle mass and/or body size, or alternative diets and may not be suitable for all patient populations. Testing performed at [facility], [address] [place] [address] pH (U) 6.0 [pH] Normal 5.0-8.0 [facility] Comment on above: Order Comment: The c alculated GFR uses the (IDMS)-traceable creatinine MDRD equation and is reported in mL/min/1.73 square meters. This formula is not recommended for use with individuals with unstable creatinine concentrations, extremes in muscle mass and/or body size, or alternative diets and may not be suitable for all patient populations. Testing performed at [facility], [address] [place] [address] 36921 Protein Ql (U) 2+ Abnormal Negative [facility] Comment on above: Order Comment: The c alculated GFR uses the (IDMS)-traceable creatinine MDRD equation and is reported in mL/min/1.73 square meters. This formula is not recommended for use with individuals with unstable creatinine concentrations, extremes in muscle mass and/or body size, or alternative diets and may not be suitable for all patient populations. Testing performed at [facility], [address] [place] [address] 11571 Spec. Grav. >=1.030 Abnormal 1.005-1.03 0 [facility] Comment on above: Order Comment: The c alculated GFR uses the (IDMS)-traceable creatinine MDRD equation and is reported in mL/min/1.73 square meters. This formula is not recommended for use with individuals with unstable creatinine concentrations, extremes in muscle mass and/or body size, or alternative diets and may not be suitable for all patient populations. Testing performed at [facility], [address] [place] [address] 66432 Specimen Type Straight Cath Normal [facility] Comment on above: Order Comment: The c alculated GFR uses the (IDMS)-traceable creatinine MDRD equation and is reported in mL/min/1.73 square meters. This formula is not recommended for use with individuals with unstable creatinine concentrations, extremes in muscle mass and/or body size, or alternative diets and may not be suitable for all patient populations. Testing performed at [facility], [address] [place] [address] 20542 Urobilinogen 0.2 {EhrlichU}/dL Normal 0.2-1.0 [facility] Comment on above: Order Comment: The c alculated GFR uses the (IDMS)-traceable creatinine MDRD equation and is reported in mL/min/1.73 square meters. This formula is not recommended for use with individuals with unstable creatinine concentrations, extremes in muscle mass and/or body size, or alternative diets and may not be suitable for all patient populations. Testing performed at [facility], [address] [place] [address] 90237 Urine Microscopic w/rfx Cult ureon 10-07-2023 Bacteria None Seen Normal None Seen-Trace [facility] Comment on above: Order Comment: The c alculated GFR uses the (IDMS)-traceable creatinine MDRD equation and is reported in mL/min/1.73 square meters. This formula is not recommended for use with individuals with unstable creatinine concentrations, extremes in muscle mass and/or body size, or alternative diets and may not be suitable for all patient populations. Testing performed at [facility], [address] [place] [address] 95706 Epithelial cells LM Ql (Urine sed) 0-2 Normal 0-5 [facility] Comment on above: Order Comment: The c alculated GFR uses the (IDMS)-traceable creatinine MDRD equation and is reported in mL/min/1.73 square meters. This formula is not recommended for use with individuals with unstable creatinine concentrations, extremes in muscle mass and/or body size, or alternative diets and may not be suitable for all patient populations. Testing performed at [facility], [address] [place] [address] 98423 Mucus Ql (Urine sed) Trace Normal None Se en - 1+ [facility] Comment on above: Order Comment: The c alculated GFR uses the (IDMS)-traceable creatinine MDRD equation and is reported in mL/min/1.73 square meters. This formula is not recommended for use with individuals with unstable creatinine concentrations, extremes in muscle mass and/or body size, or alternative diets and may not be suitable for all patient populations. Testing performed at [facility], [address] [place] [address] 25018 RBC'S 3-5 Abnormal 0-2 [facility] Comment on above: Order Comment: The c alculated GFR uses the (IDMS)-traceable creatinine MDRD equation and is reported in mL/min/1.73 square meters. This formula is not recommended for use with individuals with unstable creatinine concentrations, extremes in muscle mass and/or body size, or alternative diets and may not be suitable for all patient populations. Testing performed at [facility], [address] [place] [address] 13200 WBC'S 0-2 Normal 0-5 [facility] Comment on above: Order Comment: The c alculated GFR uses the (IDMS)-traceable creatinine MDRD equation and is reported in mL/min/1.73 square meters. This formula is not recommended for use with individuals with unstable creatinine concentrations, extremes in muscle mass and/or body size, or alternative diets and may not be suitable for all patient populations. Testing performed at [facility], [address] [place] [address] 51882 XRAY CHEST PORTABLE 1 VIEWon 10-07-2023 XRAY CHEST PORTABLE 1 VIEW EXAM INFORMATION: Examination: XRAY CHEST PORTABLE 1 VIEW Date of Exam: 10/07/2023 7:29 pm Diagnosis/Reason for Exam: SOB; Pneumonia of right lower lobe due to infectious organism Additional History: Hypoxia, increased SOB Number of Views: 1 Comparison: 10/07/2023, 10/06/2023 DISCUSSION: Lungs / pleura: Small volume infiltrates of the left mid to lower lung field. Improved aeration of the right lower lung. No pleural effusions by AP imaging. Lines and Tubes: None. Heart / mediastinum: Borderline cardiomediastinal silhouette enlargement. Bones: No displaced fracture changes. IMPRESSION No new pneumonia changes of the right lower lobe. Improved aeration from 10/06/2023. Small volume infiltrates remain of the left mid and lower lung field.. Interpretation by Jose Martin Taylor M.D. Professional Interpretation by Radiology Reading workstation: [id number] [facility] XRAY CHEST PORTABLE 1 VIEW EXAM INFORMATION: Examination: XRAY CHEST PORTABLE 1 VIEW Date of Exam: 10/07/2023 5:12 pm Diagnosis/Reason for Exam: SOB, emesis; Shortness of breath Additional History: SOB. Number of Images: 1 Comparison: RAD - Chest - Portable - 1 View dated 10/07/2023; RAD - Chest - Portable - 1 View dated 10/06/2023 DISCUSSION: Lungs / pleura: Subsegmental consolidation of the lingula and left lower lobe is suspected. Patchy consolidation at the right base obscuring the right heart border is noted. This is similar to the prior. No pneumothorax is seen. Heart / mediastinum: Moderate cardiomegaly is noted. This is unchanged. Bones: Unremarkable. IMPRESSION There are patchy bilateral airspace opacities. Findings are nonspecific but may reflect multifocal pneumonia. Interpretation by Oli Nixon M.D. Professional Interpretation by Radiology Reading workstation: [id number] [facility] XRAY CHEST PORTABLE 1 VIEW EXAM INFORMATION: Examination: XRAY CHEST PORTABLE 1 VIEW Date of Exam: 10/07/2023 6:29 am Diagnosis/Reason for Exam: right middle lobe infiltrate; Pneumonia of right lower lobe due to infectious organism Additional History: pt. pos. influenza. r/o infiltrates Number of views: 1 Comparison: RAD - Chest - Portable - 1 View dated 10/06/2023 DISCUSSION: Lungs / pleura: Persistent right infrahilar airspace disease. Background of increased central interstitial opacities. Heart / mediastinum: Cardiomediastinal contours are normal allowing for patient rotation. Bones: Unremarkable. IMPRESSION Right infrahilar atelectasis/infiltrate similar to comparison. Increased central interstitial opacities may reflect bronchitis or vascular congestion. Interpretation by Alfred Diaz M.D. Professional Interpretation by Radiology Reading workstation: [id number] Normal [facility] B-type Natriuretic peptideon 10-06-2023 Natriuretic peptide B (Bld) [Mass/Vol] 62 pg/mL Normal <101 [facility] Comment on above: Order Comment: Testi ng performed at [facility], [address] [place] [address] Basic Metabolic Profileon ANIO 17 mmol/L Normal 12-20 [facility] Comment on above: Order Comment: Testi ng performed at [facility], [address] [place] [address] 61958 Calcium [Mass/Vol] 8.7 mg/dL Normal 8.4-10.2 [facility] Comment on above: Order Comment: Testi ng performed at [facility], [address] [place] [address] 13243 Chloride [Moles/Vol] 91 mmol/L Low 98-107 [facility] Comment on above: Order Comment: Testi ng performed at [facility], [address] [place] [address] 17234 CO2 [Moles/Vol] 32.0 mmol/L High 22.0-30.0 [facility] Comment on above: Order Comment: Testi ng performed at [facility], [address] [place] [address] 37644 Creatinine [Mass/Vol] 0.9 mg/dL Normal 0.6-1.2 [facility] Comment on above: Order Comment: Testi ng performed at [facility], [address] [place] [address] 03205 Glucose [Mass/Vol] 266 mg/dL High 74-106 [facility] Comment on above: Order Comment: Testi ng performed at [facility], [facility] [place] [address] Potassium [Moles/Vol] 4.7 mmol/L Normal 3.3-4.9 [facility] Comment on above: Order Comment: Testi ng performed at [facility], [address] [place] [address] 58278 Sodium [Moles/Vol] 135 mmol/L Low 137-145 [facility] Comment on above: Order Comment: Testi ng performed at [facility], [address] [place] [address] 28911 Urea nitrogen [Mass/Vol] 22 mg/dL High 8-19 [facility] Comment on above: Order Comment: Testi ng performed at [facility], [address] [place] [address] 45538 Blood Culture #1on 4 Final Report Critically abnormal [facility] Comment on above: Order Comment: Cultu re Status amended from (Pathogenic) (10/11/2023 10:31) to (Contaminated) (10/11/2023 10:31) by SJ[facility].Testing performed at [facility], [address] [place] [address] 48109 Result Comment: A! SOURCE Peripheral GRAM STAIN [10/07/2023 01:16 HRB] Preliminary Gram Stain Result: Aerobic Bottle - Gram negative bacilli. COMMENT [10/07/2023 01:19 HRB] Critical positive Blood Culture Set 1 Aerobic Bottle and Gram Stain result called to and read back by JUAN C PLEITEZ on 10/07/2023 01:19 by BRIDGETTE NGUYEN PRELIMINARY RESULT [10/07/2023,00:29] No Growth in Anaerobic Bottle after 24 hours [10/08/2023,00:25] No Growth in Anaerobic Bottle after 48 hours [10/11/2023,00:28] No Growth in Anaerobic Bottle after 5 days FINAL RESULT [10/07/2023 01:19 HRB] Aerobic Bottle: Positive Blood Culture. See separate [facility] report titled Blood Culture Organism ID AND CHAVO for final results. FINAL RESULT [10/11/2023 07:20 ADP] Anaerobic Bottle: No growth in 5 days. Blood Culture #2on 4 Final Report Normal [facility] Comment on above: Order Comment: Testi ng performed at [facility], [address] [place] [address] 99492 Result Comment: SOUR CE Peripheral PRELIMINARY RESULT [10/07/2023,00:29] No Growth after 24 hours [10/08/2023,00:30] No Growth after 48 hours FINAL RESULT [10/11/2023 07:21 ADP] No growth in 5 days. Blood Culture Organism ID AN D CHAVO Aero/LILIYA LBINon 10-06-2023 Aerobe ID + Suscept Abnormal [facility]mu [facility] Comment on above: Order Comment: The c alculated GFR uses the (IDMS)-traceable creatinine MDRD equation and is reported in mL/min/1.73 square meters. This formula is not recommended for use with individuals with unstable creatinine concentrations, extremes in muscle mass and/or body size, or alternative diets and may not be suitable for all patient populations. Testing performed at [facility], [address] [place] [address] Result Comment: UNAB LE TO MAKE FURTHER IDENTIFICATION. CHAVO NOT INDICATED, MOST COMMONLY A CONTAMINANT FROM SPECIMEN COLLECTION C-Reactive Proteinon 024 CRP [Mass/Vol] 65.5 mg/L High 0.0-10.0 [facility] Comment on above: Order Comment: Testi ng performed at [facility], [address] [place], [place] [address] CBC w/Auto Diffon 10-06-2023 Basophils (Bld) [#/Vol] 0.03 10*3/uL Normal 0.00-0.10 [facility] Comment on above: Order Comment: Immat ure Gran parameters reflect the combination of Metas, Myelos, and Promyelocytes and should be used in conjunction with other current indicators for the diagnosis of infection/inflammation. Bands are not included in the Immature Gran parameters. They are included with the Neutrophil parameters. Nucleated RBCs are counted separately from the WBCs. Corrected WBC is no longer indicated.Testing performed at [facility], [address] [place], [place] [address] Basophils/100 WBC (Bld) 0.2 % Normal 0.1-1.2 [facility] Comment on above: Order Comment: Immat ure Gran parameters reflect the combination of Metas, Myelos, and Promyelocytes and should be used in conjunction with other current indicators for the diagnosis of infection/inflammation. Bands are not included in the Immature Gran parameters. They are included with the Neutrophil parameters. Nucleated RBCs are counted separately from the WBCs. Corrected WBC is no longer indicated.Testing performed at [facility], [address] [place] [address] 96348 Eosinophils (Bld) [#/Vol] 0.02 10*3/uL Normal 0.00-0.40 [facility] Comment on above: Order Comment: Immat ure Gran parameters reflect the combination of Metas, Myelos, and Promyelocytes and should be used in conjunction with other current indicators for the diagnosis of infection/inflammation. Bands are not included in the Immature Gran parameters. They are included with the Neutrophil parameters. Nucleated RBCs are counted separately from the WBCs. Corrected WBC is no longer indicated.Testing performed at [facility], [address] [place] [address] 98805 Eosinophils/100 WBC (Bld) 0.1 % Low 0.7-5.8 [facility] Comment on above: Order Comment: Immat ure Gran parameters reflect the combination of Metas, Myelos, and Promyelocytes and should be used in conjunction with other current indicators for the diagnosis of infection/inflammation. Bands are not included in the Immature Gran parameters. They are included with the Neutrophil parameters. Nucleated RBCs are counted separately from the WBCs. Corrected WBC is no longer indicated.Testing performed at [facility], [address] [place] [address] 65033 Erythrocyte distribution width (RBC) [Ratio] 17.2 % High 11.7-14.4 [facility] Comment on above: Order Comment: Immat ure Gran parameters reflect the combination of Metas, Myelos, and Promyelocytes and should be used in conjunction with other current indicators for the diagnosis of infection/inflammation. Bands are not included in the Immature Gran parameters. They are included with the Neutrophil parameters. Nucleated RBCs are counted separately from the WBCs. Corrected WBC is no longer indicated.Testing performed at [facility], [address] [place] [address] 80699 Hematocrit (Bld) [Volume fraction] 38.1 % Normal 34.1-44.9 [facility] Comment on above: Order Comment: Immat ure Gran parameters reflect the combination of Metas, Myelos, and Promyelocytes and should be used in conjunction with other current indicators for the diagnosis of infection/inflammation. Bands are not included in the Immature Gran parameters. They are included with the Neutrophil parameters. Nucleated RBCs are counted separately from the WBCs. Corrected WBC is no longer indicated.Testing performed at [facility], [address] [place] [address] 22059 Hemoglobin (Bld) [Mass/Vol] 10.6 g/dL Low 11.2-15.7 [facility] Comment on above: Order Comment: Immat ure Gran parameters reflect the combination of Metas, Myelos, and Promyelocytes and should be used in conjunction with other current indicators for the diagnosis of infection/inflammation. Bands are not included in the Immature Gran parameters. They are included with the Neutrophil parameters. Nucleated RBCs are counted separately from the WBCs. Corrected WBC is no longer indicated.Testing performed at [facility], [address] [place] [address] [id number] IG % (B) 2.3 % High 0.0-0.4 [facility] Comment on above: Order Comment: Immat ure Gran parameters reflect the combination of Metas, Myelos, and Promyelocytes and should be used in conjunction with other current indicators for the diagnosis of infection/inflammation. Bands are not included in the Immature Gran parameters. They are included with the Neutrophil parameters. Nucleated RBCs are counted separately from the WBCs. Corrected WBC is no longer indicated.Testing performed at [facility], [address] [place] [address] [id number] IG# (B) 0.34 10*3/uL High 0.00-0.00 [facility] Comment on above: Order Comment: Immat ure Gran parameters reflect the combination of Metas, Myelos, and Promyelocytes and should be used in conjunction with other current indicators for the diagnosis of infection/inflammation. Bands are not included in the Immature Gran parameters. They are included with the Neutrophil parameters. Nucleated RBCs are counted separately from the WBCs. Corrected WBC is no longer indicated.Testing performed at [facility], [address] [place] [address] [id number] Lymphocytes (Bld) [#/Vol] 0.65 10*3/uL Low 1.20-3.70 [facility] Comment on above: Order Comment: Immat ure Gran parameters reflect the combination of Metas, Myelos, and Promyelocytes and should be used in conjunction with other current indicators for the diagnosis of infection/inflammation. Bands are not included in the Immature Gran parameters. They are included with the Neutrophil parameters. Nucleated RBCs are counted separately from the WBCs. Corrected WBC is no longer indicated.Testing performed at [facility], [address] [place] [address] 18534 Lymphocytes/100 WBC (Bld) 4.4 % Low 19.3-51.7 [facility] Comment on above: Order Comment: Immat ure Gran parameters reflect the combination of Metas, Myelos, and Promyelocytes and should be used in conjunction with other current indicators for the diagnosis of infection/inflammation. Bands are not included in the Immature Gran parameters. They are included with the Neutrophil parameters. Nucleated RBCs are counted separately from the WBCs. Corrected WBC is no longer indicated.Testing performed at [facility], [address] [place] [address] 30531 MCH (RBC) [Entitic mass] 23.1 pg Low 25.6-32.2 [facility] Comment on above: Order Comment: Immat ure Gran parameters reflect the combination of Metas, Myelos, and Promyelocytes and should be used in conjunction with other current indicators for the diagnosis of infection/inflammation. Bands are not included in the Immature Gran parameters. They are included with the Neutrophil parameters. Nucleated RBCs are counted separately from the WBCs. Corrected WBC is no longer indicated.Testing performed at [facility], [address] [place] [address] [phone] MCHC (RBC) [Mass/Vol] 27.8 g/dL Low 32.2-35.5 [facility] Comment on above: Order Comment: Immat ure Gran parameters reflect the combination of Metas, Myelos, and Promyelocytes and should be used in conjunction with other current indicators for the diagnosis of infection/inflammation. Bands are not included in the Immature Gran parameters. They are included with the Neutrophil parameters. Nucleated RBCs are counted separately from the WBCs. Corrected WBC is no longer indicated.Testing performed at [facility], [address] [place] [address] [id number] MCV (RBC) [Entitic vol] 83.2 fL Normal 79.4-94.8 [facility] Comment on above: Order Comment: Immat ure Gran parameters reflect the combination of Metas, Myelos, and Promyelocytes and should be used in conjunction with other current indicators for the diagnosis of infection/inflammation. Bands are not included in the Immature Gran parameters. They are included with the Neutrophil parameters. Nucleated RBCs are counted separately from the WBCs. Corrected WBC is no longer indicated.Testing performed at [facility], [address] [place] [address] [id number] Monocytes (Bld) [#/Vol] 0.24 10*3/uL Normal 0.20-0.90 [facility] Comment on above: Order Comment: Immat ure Gran parameters reflect the combination of Metas, Myelos, and Promyelocytes and should be used in conjunction with other current indicators for the diagnosis of infection/inflammation. Bands are not included in the Immature Gran parameters. They are included with the Neutrophil parameters. Nucleated RBCs are counted separately from the WBCs. Corrected WBC is no longer indicated.Testing performed at [facility], [address] [place] [address] [id number] Monocytes/100 WBC (Bld) 1.6 % Low 4.7-12.5 [facility] Comment on above: Order Comment: Immat ure Gran parameters reflect the combination of Metas, Myelos, and Promyelocytes and should be used in conjunction with other current indicators for the diagnosis of infection/inflammation. Bands are not included in the Immature Gran parameters. They are included with the Neutrophil parameters. Nucleated RBCs are counted separately from the WBCs. Corrected WBC is no longer indicated.Testing performed at [facility], [address] [place] [address] [id number] Neutrophils (Bld) [#/Vol] 13.61 10*3/uL High 1.60-6.10 [facility] Comment on above: Order Comment: Immat ure Gran parameters reflect the combination of Metas, Myelos, and Promyelocytes and should be used in conjunction with other current indicators for the diagnosis of infection/inflammation. Bands are not included in the Immature Gran parameters. They are included with the Neutrophil parameters. Nucleated RBCs are counted separately from the WBCs. Corrected WBC is no longer indicated.Testing performed at [facility], [address] [place] [address] 02126 Neutrophils/100 WBC (Bld) 91.4 % High 34.0-71.1 [facility] Comment on above: Order Comment: Immat ure Gran parameters reflect the combination of Metas, Myelos, and Promyelocytes and should be used in conjunction with other current indicators for the diagnosis of infection/inflammation. Bands are not included in the Immature Gran parameters. They are included with the Neutrophil parameters. Nucleated RBCs are counted separately from the WBCs. Corrected WBC is no longer indicated.Testing performed at [facility], [address] [place], [place] [address] NRBC % (B) 0.0 /100{WBC} Normal 0.0-0.2 [facility] Comment on above: Order Comment: Immat ure Gran parameters reflect the combination of Metas, Myelos, and Promyelocytes and should be used in conjunction with other current indicators for the diagnosis of infection/inflammation. Bands are not included in the Immature Gran parameters. They are included with the Neutrophil parameters. Nucleated RBCs are counted separately from the WBCs. Corrected WBC is no longer indicated.Testing performed at [facility], [address] [place] [address] [id number] NRBC# (B) 0.00 10*3/uL Normal 0.00-0.00 [facility] Comment on above: Order Comment: Immat ure Gran parameters reflect the combination of Metas, Myelos, and Promyelocytes and should be used in conjunction with other current indicators for the diagnosis of infection/inflammation. Bands are not included in the Immature Gran parameters. They are included with the Neutrophil parameters. Nucleated RBCs are counted separately from the WBCs. Corrected WBC is no longer indicated.Testing performed at [facility], [address] [place] [address] [id number] Platelet mean volume (Bld) [Entitic vol] 9.5 fL Normal 9.4-12.3 [facility] Comment on above: Order Comment: Immat ure Gran parameters reflect the combination of Metas, Myelos, and Promyelocytes and should be used in conjunction with other current indicators for the diagnosis of infection/inflammation. Bands are not included in the Immature Gran parameters. They are included with the Neutrophil parameters. Nucleated RBCs are counted separately from the WBCs. Corrected WBC is no longer indicated.Testing performed at [facility], [address] [place] [address] Platelets (Bld) [#/Vol] 255 10*3/uL Normal 182-369 [facility] Comment on above: Order Comment: Immat ure Gran parameters reflect the combination of Metas, Myelos, and Promyelocytes and should be used in conjunction with other current indicators for the diagnosis of infection/inflammation. Bands are not included in the Immature Gran parameters. They are included with the Neutrophil parameters. Nucleated RBCs are counted separately from the WBCs. Corrected WBC is no longer indicated.Testing performed at [facility], [address] [place] [address] [id number] RBC (Bld) [#/Vol] 4.58 10*6/uL Normal 3.93-5.22 [facility] Comment on above: Order Comment: Immat ure Gran parameters reflect the combination of Metas, Myelos, and Promyelocytes and should be used in conjunction with other current indicators for the diagnosis of infection/inflammation. Bands are not included in the Immature Gran parameters. They are included with the Neutrophil parameters. Nucleated RBCs are counted separately from the WBCs. Corrected WBC is no longer indicated.Testing performed at [facility], [address] [place] [address] 09917 RDW-SD (B) 51.3 fL High 36.4-46.3 [facility] Comment on above: Order Comment: Immat ure Gran parameters reflect the combination of Metas, Myelos, and Promyelocytes and should be used in conjunction with other current indicators for the diagnosis of infection/inflammation. Bands are not included in the Immature Gran parameters. They are included with the Neutrophil parameters. Nucleated RBCs are counted separately from the WBCs. Corrected WBC is no longer indicated.Testing performed at [facility], [address] [place] [address] [phone] WBC (Bld) [#/Vol] 14.9 10*3/uL High 4.0-10.0 [facility] Comment on above: Order Comment: Immat ure Gran parameters reflect the combination of Metas, Myelos, and Promyelocytes and should be used in conjunction with other current indicators for the diagnosis of infection/inflammation. Bands are not included in the Immature Gran parameters. They are included with the Neutrophil parameters. Nucleated RBCs are counted separately from the WBCs. Corrected WBC is no longer indicated.Testing performed at [facility], [address] [place] [address] [id number] Basophils (Bld) [#/Vol] 0.04 10*3/uL Normal 0.00-0.10 [facility] Comment on above: Order Comment: Immature Gran parameters reflect the combination of Metas, Myelos, and Promyelocytes and should be used in conjunction with other current indicators for the diagnosis of infection/inflammation. Bands are not included in the Immature Gran parameters. They are included with the Neutrophil parameters. Nucleated RBCs are counted separately from the WBCs. Corrected WBC is no longer indicated. Testing performed at [facility], [address] [place] [address] 80735 Basophils/100 WBC (Bld) 0.3 % Normal 0.1-1.2 [facility] Comment on above: Order Comment: Immature Gran parameters reflect the combination of Metas, Myelos, and Promyelocytes and should be used in conjunction with other current indicators for the diagnosis of infection/inflammation. Bands are not included in the Immature Gran parameters. They are included with the Neutrophil parameters. Nucleated RBCs are counted separately from the WBCs. Corrected WBC is no longer indicated. Testing performed at [facility], [address] [place] [address] 03931 Eosinophils (Bld) [#/Vol] 0.06 10*3/uL Normal 0.00-0.40 [facility] Comment on above: Order Comment: Immature Gran parameters reflect the combination of Metas, Myelos, and Promyelocytes and should be used in conjunction with other current indicators for the diagnosis of infection/inflammation. Bands are not included in the Immature Gran parameters. They are included with the Neutrophil parameters. Nucleated RBCs are counted separately from the WBCs. Corrected WBC is no longer indicated. Testing performed at [facility], [address] [place] [address] 48880 Eosinophils/100 WBC (Bld) 0.4 % Low 0.7-5.8 [facility] Comment on above: Order Comment: Immature Gran parameters reflect the combination of Metas, Myelos, and Promyelocytes and should be used in conjunction with other current indicators for the diagnosis of infection/inflammation. Bands are not included in the Immature Gran parameters. They are included with the Neutrophil parameters. Nucleated RBCs are counted separately from the WBCs. Corrected WBC is no longer indicated. Testing performed at [facility], [address] [place] [address] [id number] Erythrocyte distribution width (RBC) [Ratio] 17.2 % High 11.7-14.4 [facility] Comment on above: Order Comment: Immature Gran parameters reflect the combination of Metas, Myelos, and Promyelocytes and should be used in conjunction with other current indicators for the diagnosis of infection/inflammation. Bands are not included in the Immature Gran parameters. They are included with the Neutrophil parameters. Nucleated RBCs are counted separately from the WBCs. Corrected WBC is no longer indicated. Testing performed at [facility], [address] [place] [address] 00094 Hematocrit (Bld) [Volume fraction] 36.6 % Normal 34.1-44.9 [facility] Comment on above: Order Comment: Immature Gran parameters reflect the combination of Metas, Myelos, and Promyelocytes and should be used in conjunction with other current indicators for the diagnosis of infection/inflammation. Bands are not included in the Immature Gran parameters. They are included with the Neutrophil parameters. Nucleated RBCs are counted separately from the WBCs. Corrected WBC is no longer indicated. Testing performed at [facility], [address] [place] [address] 17764 Hemoglobin (Bld) [Mass/Vol] 10.5 g/dL Low 11.2-15.7 [facility] Comment on above: Order Comment: Immature Gran parameters reflect the combination of Metas, Myelos, and Promyelocytes and should be used in conjunction with other current indicators for the diagnosis of infection/inflammation. Bands are not included in the Immature Gran parameters. They are included with the Neutrophil parameters. Nucleated RBCs are counted separately from the WBCs. Corrected WBC is no longer indicated. Testing performed at [facility], [address] [place] [address] 52883 IG % (B) 2.9 % High 0.0-0.4 [facility] Comment on above: Order Comment: Immature Gran parameters reflect the combination of Metas, Myelos, and Promyelocytes and should be used in conjunction with other current indicators for the diagnosis of infection/inflammation. Bands are not included in the Immature Gran parameters. They are included with the Neutrophil parameters. Nucleated RBCs are counted separately from the WBCs. Corrected WBC is no longer indicated. Testing performed at [facility], [address] [place] [address] [id number] IG# (B) 0.45 10*3/uL High 0.00-0.00 [facility] Comment on above: Order Comment: Immature Gran parameters reflect the combination of Metas, Myelos, and Promyelocytes and should be used in conjunction with other current indicators for the diagnosis of infection/inflammation. Bands are not included in the Immature Gran parameters. They are included with the Neutrophil parameters. Nucleated RBCs are counted separately from the WBCs. Corrected WBC is no longer indicated. Testing performed at [facility], [address] [place] [address] 40824 Lymphocytes (Bld) [#/Vol] 0.91 10*3/uL Low 1.20-3.70 [facility] Comment on above: Order Comment: Immature Gran parameters reflect the combination of Metas, Myelos, and Promyelocytes and should be used in conjunction with other current indicators for the diagnosis of infection/inflammation. Bands are not included in the Immature Gran parameters. They are included with the Neutrophil parameters. Nucleated RBCs are counted separately from the WBCs. Corrected WBC is no longer indicated. Testing performed at [facility], [address] [place] [address] 47127 Lymphocytes/100 WBC (Bld) 5.9 % Low 19.3-51.7 [facility] Comment on above: Order Comment: Immature Gran parameters reflect the combination of Metas, Myelos, and Promyelocytes and should be used in conjunction with other current indicators for the diagnosis of infection/inflammation. Bands are not included in the Immature Gran parameters. They are included with the Neutrophil parameters. Nucleated RBCs are counted separately from the WBCs. Corrected WBC is no longer indicated. Testing performed at [facility], [address] [place] [address] 25790 MCH (RBC) [Entitic mass] 23.4 pg Low 25.6-32.2 [facility] Comment on above: Order Comment: Immature Gran parameters reflect the combination of Metas, Myelos, and Promyelocytes and should be used in conjunction with other current indicators for the diagnosis of infection/inflammation. Bands are not included in the Immature Gran parameters. They are included with the Neutrophil parameters. Nucleated RBCs are counted separately from the WBCs. Corrected WBC is no longer indicated. Testing performed at [facility], [address] [place] [address] 35869 MCHC (RBC) [Mass/Vol] 28.7 g/dL Low 32.2-35.5 [facility] Comment on above: Order Comment: Immature Gran parameters reflect the combination of Metas, Myelos, and Promyelocytes and should be used in conjunction with other current indicators for the diagnosis of infection/inflammation. Bands are not included in the Immature Gran parameters. They are included with the Neutrophil parameters. Nucleated RBCs are counted separately from the WBCs. Corrected WBC is no longer indicated. Testing performed at [facility], [address] [place] [address] 69630 MCV (RBC) [Entitic vol] 81.7 fL Normal 79.4-94.8 [facility] Comment on above: Order Comment: Immature Gran parameters reflect the combination of Metas, Myelos, and Promyelocytes and should be used in conjunction with other current indicators for the diagnosis of infection/inflammation. Bands are not included in the Immature Gran parameters. They are included with the Neutrophil parameters. Nucleated RBCs are counted separately from the WBCs. Corrected WBC is no longer indicated. Testing performed at [facility], [address] [place] [address] [phone] Monocytes (Bld) [#/Vol] 0.44 10*3/uL Normal 0.20-0.90 [facility] Comment on above: Order Comment: Immature Gran parameters reflect the combination of Metas, Myelos, and Promyelocytes and should be used in conjunction with other current indicators for the diagnosis of infection/inflammation. Bands are not included in the Immature Gran parameters. They are included with the Neutrophil parameters. Nucleated RBCs are counted separately from the WBCs. Corrected WBC is no longer indicated. Testing performed at [facility], [address] [place] [address] [id number] Monocytes/100 WBC (Bld) 2.9 % Low 4.7-12.5 [facility] Comment on above: Order Comment: Immature Gran parameters reflect the combination of Metas, Myelos, and Promyelocytes and should be used in conjunction with other current indicators for the diagnosis of infection/inflammation. Bands are not included in the Immature Gran parameters. They are included with the Neutrophil parameters. Nucleated RBCs are counted separately from the WBCs. Corrected WBC is no longer indicated. Testing performed at [facility], [address] [place] [address] [phone] Neutrophils (Bld) [#/Vol] 13.42 10*3/uL High 1.60-6.10 [facility] Comment on above: Order Comment: Immature Gran parameters reflect the combination of Metas, Myelos, and Promyelocytes and should be used in conjunction with other current indicators for the diagnosis of infection/inflammation. Bands are not included in the Immature Gran parameters. They are included with the Neutrophil parameters. Nucleated RBCs are counted separately from the WBCs. Corrected WBC is no longer indicated. Testing performed at [facility], [address] [place] [address] [phone] Neutrophils/100 WBC (Bld) 87.6 % High 34.0-71.1 [facility] Comment on above: Order Comment: Immature Gran parameters reflect the combination of Metas, Myelos, and Promyelocytes and should be used in conjunction with other current indicators for the diagnosis of infection/inflammation. Bands are not included in the Immature Gran parameters. They are included with the Neutrophil parameters. Nucleated RBCs are counted separately from the WBCs. Corrected WBC is no longer indicated. Testing performed at [facility], [address] [place] [address] [phone] NRBC % (B) 0.0 /100{WBC} Normal 0.0-0.2 [facility] Comment on above: Order Comment: Immature Gran parameters reflect the combination of Metas, Myelos, and Promyelocytes and should be used in conjunction with other current indicators for the diagnosis of infection/inflammation. Bands are not included in the Immature Gran parameters. They are included with the Neutrophil parameters. Nucleated RBCs are counted separately from the WBCs. Corrected WBC is no longer indicated. Testing performed at [facility], [address] [place] [address] 12555 NRBC# (B) 0.00 10*3/uL Normal 0.00-0.00 [facility] Comment on above: Order Comment: Immature Gran parameters reflect the combination of Metas, Myelos, and Promyelocytes and should be used in conjunction with other current indicators for the diagnosis of infection/inflammation. Bands are not included in the Immature Gran parameters. They are included with the Neutrophil parameters. Nucleated RBCs are counted separately from the WBCs. Corrected WBC is no longer indicated. Testing performed at [facility], [address] [place] [address] 31296 Platelet mean volume (Bld) [Entitic vol] 9.1 fL Low 9.4-12.3 [facility] Comment on above: Order Comment: Immature Gran parameters reflect the combination of Metas, Myelos, and Promyelocytes and should be used in conjunction with other current indicators for the diagnosis of infection/inflammation. Bands are not included in the Immature Gran parameters. They are included with the Neutrophil parameters. Nucleated RBCs are counted separately from the WBCs. Corrected WBC is no longer indicated. Testing performed at [facility], [address] [place] [address] [phone] Platelets (Bld) [#/Vol] 272 10*3/uL Normal 182-369 [facility] Comment on above: Order Comment: Immature Gran parameters reflect the combination of Metas, Myelos, and Promyelocytes and should be used in conjunction with other current indicators for the diagnosis of infection/inflammation. Bands are not included in the Immature Gran parameters. They are included with the Neutrophil parameters. Nucleated RBCs are counted separately from the WBCs. Corrected WBC is no longer indicated. Testing performed at [facility], [address] [place] [address] RBC (Bld) [#/Vol] 4.48 10*6/uL Normal 3.93-5.22 [facility] Comment on above: Order Comment: Immature Gran parameters reflect the combination of Metas, Myelos, and Promyelocytes and should be used in conjunction with other current indicators for the diagnosis of infection/inflammation. Bands are not included in the Immature Gran parameters. They are included with the Neutrophil parameters. Nucleated RBCs are counted separately from the WBCs. Corrected WBC is no longer indicated. Testing performed at [facility], [address] [place] [address] 11819 RDW-SD (B) 50.0 fL High 36.4-46.3 [facility] Comment on above: Order Comment: Immature Gran parameters reflect the combination of Metas, Myelos, and Promyelocytes and should be used in conjunction with other current indicators for the diagnosis of infection/inflammation. Bands are not included in the Immature Gran parameters. They are included with the Neutrophil parameters. Nucleated RBCs are counted separately from the WBCs. Corrected WBC is no longer indicated. Testing performed at [facility], [address] [place] [address] 22668 WBC (Bld) [#/Vol] 15.3 10*3/uL High 4.0-10.0 [facility] Comment on above: Order Comment: Immature Gran parameters reflect the combination of Metas, Myelos, and Promyelocytes and should be used in conjunction with other current indicators for the diagnosis of infection/inflammation. Bands are not included in the Immature Gran parameters. They are included with the Neutrophil parameters. Nucleated RBCs are counted separately from the WBCs. Corrected WBC is no longer indicated. Testing performed at [facility], [address] [place] [address] [id number] Comp Metabolic Profileon Albumin [Mass/Vol] 4.1 g/dL Normal 3.5-5.0 [facility] Comment on above: Order Comment: Testi ng performed at [facility], [address] [place] [address] 68229 ALP [Catalytic activity/Vol] 167 U/L High 38-126 [facility] Comment on above: Order Comment: Testi ng performed at [facility], [address] [place] [address] 17350 ALT [Catalytic activity/Vol] 23 U/L Normal <35 [facility] Comment on above: Order Comment: Testi ng performed at [facility], [address] [place] [place] [address] Result Comment: ALT test method is traceable to the IFCC recommended reference method. ANIO 11 mmol/L Low 12-20 [facility] Comment on above: Order Comment: Testi ng performed at [facility], [address] [place] [place] [address] AST [Catalytic activity/Vol] 15 U/L Normal 15-46 [facility] Comment on above: Order Comment: Testi ng performed at [facility], [facility] [place] [address] BILI-T 0.5 mg/dL Normal 0.2-1.3 [facility] Comment on above: Order Comment: Testi ng performed at [facility], [facility] [place] [address] Calcium [Mass/Vol] 8.7 mg/dL Normal 8.4-10.2 [facility] Comment on above: Order Comment: Testi ng performed at [facility], [address] [place] [place] [address] Chloride [Moles/Vol] 92 mmol/L Low 98-107 [facility] Comment on above: Order Comment: Testi ng performed at [facility], [address] [place] [place] [address] CO2 [Moles/Vol] 36.0 mmol/L High 22.0-30.0 [facility] Comment on above: Order Comment: Testi ng performed at [facility], [address] [place] [address] Creatinine [Mass/Vol] 0.8 mg/dL Normal 0.6-1.2 [facility] Comment on above: Order Comment: Testi ng performed at [facility], [address] [place] [place] [address] Glucose [Mass/Vol] 202 mg/dL High 74-106 [facility] Comment on above: Order Comment: Testi ng performed at [facility], [address] [place] [address] Potassium [Moles/Vol] 4.1 mmol/L Normal 3.3-4.9 [facility] Comment on above: Order Comment: [facility], [address] [place] [address] PRO-T 7.6 g/dL Normal 6.3-8.2 [facility] Comment on above: Order Comment: Testi ng performed at [facility], [address] [place] [address] Result Comment: Eltrombopag and its metabolites may interfere with the Total Protein assay causing erroneously high results. Sodium [Moles/Vol] 135 mmol/L Low 137-145 [facility] Comment on above: Order Comment: Testi ng performed at [facility], [address] [place] [address] 80491 Urea nitrogen [Mass/Vol] 19 mg/dL Normal 8-19 [facility] Comment on above: Order Comment: Testi ng performed at [facility], [address] [place] [address] 38741 D-Dimer, Quanton 10-06-2023 DDIM (B) 126 ng/mL Normal <400 [facility] Comment on above: Order Comment: Testi ng performed at [facility], [address] [place] [address] 94772 EST Glomerular Filtration Ra zion 10-06-2023 EAGFR (B) >60 Normal >60 [facility] Comment on above: Order Comment: The c alculated GFR uses the (IDMS)-traceable creatinine MDRD equation andis reported in mL/min/1.73 square meters. This formula is not recommendedfor use with individuals with unstable creatinine concentrations, extremesin muscle mass and/or body size, or alternative diets and may not be suitablefor all patient populations.Testing performed at [facility], [facility] [place] [address] Result Comment: The reported eGFR is based on a non- patient, for Americans multiply the result by 1.212. EAGFR (B) >60 Normal >60 [facility] Comment on above: Order Comment: The c alculated GFR uses the (IDMS)-traceable creatinine MDRD equation and is reported in mL/min/1.73 square meters. This formula is not recommended for use with individuals with unstable creatinine concentrations, extremes in muscle mass and/or body size, or alternative diets and may not be suitable for all patient populations. Testing performed at [facility], [address] [place] [address] Result Comment: The reported eGFR is based on a non- patient, for Americans multiply the result by 1.212. Hemoglobin A1Con 10-06-2023 Glucose [Mass/Vol] 209 mg/dL Normal [facility] Comment on above: Order Comment: Testi ng performed at [facility], [address] [place] [address] HbA1c (Bld) [Mass fraction] 8.9 % High 4.0-6.0 [facility] Comment on above: Order Comment: Testi ng performed at [facility], [address] [place] [address] Result Comment: The [place] [employer] recommends that the goal of therapy should be a Hemoglobin A1C of <7% and that the physician should recommend the treatment regimen in patients with values consistently >8%. Lactic Acid (Lactate)on 09-09 Lactate [Moles/Vol] 2.0 mmol/L Normal 0.7-2.1 [facility] Comment on above: Order Comment: Testi ng performed at [facility], [address] [place] [address] Result Comment: When evaluating for sepsis, Surviving Sepsis guidelines suggest an initial Lactic Acid result of greater than 2 mmol/L be repeated within 6 hours. Respiratory Panel (PCR) in-h ouseon 10-06-2023 FLU A (PCR) Positive Abnormal Negative [facility] Comment on above: Order Comment: The Xpert Xpress SARS-CoV-2/ Flu/ RSV test is a rapid, multiplexed real-time RT-PCR test intended for the simultaneous qualitative detection and differentiation of SARS-CoV-2, influenza A, influenza B, and respiratory syncytial virus (RSV) viral RNA in either nasopharyngeal swab, nasal swab or nasal wash/aspirate specimens collected from individuals suspected of respiratory viral infection by their healthcare provider. Clinical signs and symptoms of respiratory viral infection due to SARS-CoV-2, influenza, and RSV can be similar. Results are for the simultaneous detection and differentiation of SARS-CoV-2, influenza A virus, influenza B virus and RSV ribonucleic acids in clinical specimens and is not intended to detect influenza C virus. SARS-CoV-2, influenza A, influenza B and RSV RNA identified by this test are generally detectable in upper respiratory specimens during the acute phase of infection. Positive results are indicative of the presence of the identified virus, but do not rule out bacterial infection or co-infection with other pathogens not detected by the test. Recent patient exposure to FluMist? or other live attenuated influenza vaccines may cause inaccurate positive results for influenza A and/ or B. Negative results do not preclude SARS-CoV-2, influenza A virus, influenza B virus and/ or RSV infection and should not be used as the sole basis for treatment or other patient management decisions. Negative results must be combined with clinical observations, patient history, and epidemiological information. The Xpert Xpress SARS-CoV-2/ Flu/ RSV test is only for use under the Food and Drug Administration's Emergency Use Authorization. Testing is limited to laboratories certified under the Clinical Laboratory Improvement Amendments of 1988 (CLIA), 42 U.S.C. ? 263a, to perform high and moderate complexity tests. Fact Sheets for Healthcare Providers and Patients can be found on the [facility] Website, [email or web address] Testing performed at [facility], [address] [place] [address] Result Comment: Resu lt was called to and read back by DOMINGUEZ JOYCE on 10/06/2023 02:34 by BRIDGETTE NGUYEN FLU B (PCR) Negative Normal Negative [facility] Comment on above: Order Comment: The Xpert Xpress SARS-CoV-2/ Flu/ RSV test is a rapid, multiplexed real-time RT-PCR test intended for the simultaneous qualitative detection and differentiation of SARS-CoV-2, influenza A, influenza B, and respiratory syncytial virus (RSV) viral RNA in either nasopharyngeal swab, nasal swab or nasal wash/aspirate specimens collected from individuals suspected of respiratory viral infection by their healthcare provider. Clinical signs and symptoms of respiratory viral infection due to SARS-CoV-2, influenza, and RSV can be similar. Results are for the simultaneous detection and differentiation of SARS-CoV-2, influenza A virus, influenza B virus and RSV ribonucleic acids in clinical specimens and is not intended to detect influenza C virus. SARS-CoV-2, influenza A, influenza B and RSV RNA identified by this test are generally detectable in upper respiratory specimens during the acute phase of infection. Positive results are indicative of the presence of the identified virus, but do not rule out bacterial infection or co-infection with other pathogens not detected by the test. Recent patient exposure to FluMist? or other live attenuated influenza vaccines may cause inaccurate positive results for influenza A and/ or B. Negative results do not preclude SARS-CoV-2, influenza A virus, influenza B virus and/ or RSV infection and should not be used as the sole basis for treatment or other patient management decisions. Negative results must be combined with clinical observations, patient history, and epidemiological information. The Xpert Xpress SARS-CoV-2/ Flu/ RSV test is only for use under the Food and Drug Administration's Emergency Use Authorization. Testing is limited to laboratories certified under the Clinical Laboratory Improvement Amendments of 1988 (CLIA), 42 U.S.C. ? 263a, to perform high and moderate complexity tests. Fact Sheets for Healthcare Providers and Patients can be found on the [facility] Website, [email or web address] Testing performed at [facility], [address] [place] [address]857 RSV (PCR) Negative Normal Negative [facility] Comment on above: Order Comment: The Xpert Xpress SARS-CoV-2/ Flu/ RSV test is a rapid, multiplexed real-time RT-PCR test intended for the simultaneous qualitative detection and differentiation of SARS-CoV-2, influenza A, influenza B, and respiratory syncytial virus (RSV) viral RNA in either nasopharyngeal swab, nasal swab or nasal wash/aspirate specimens collected from individuals suspected of respiratory viral infection by their healthcare provider. Clinical signs and symptoms of respiratory viral infection due to SARS-CoV-2, influenza, and RSV can be similar. Results are for the simultaneous detection and differentiation of SARS-CoV-2, influenza A virus, influenza B virus and RSV ribonucleic acids in clinical specimens and is not intended to detect influenza C virus. SARS-CoV-2, influenza A, influenza B and RSV RNA identified by this test are generally detectable in upper respiratory specimens during the acute phase of infection. Positive results are indicative of the presence of the identified virus, but do not rule out bacterial infection or co-infection with other pathogens not detected by the test. Recent patient exposure to FluMist? or other live attenuated influenza vaccines may cause inaccurate positive results for influenza A and/ or B. Negative results do not preclude SARS-CoV-2, influenza A virus, influenza B virus and/ or RSV infection and should not be used as the sole basis for treatment or other patient management decisions. Negative results must be combined with clinical observations, patient history, and epidemiological information. The Xpert Xpress SARS-CoV-2/ Flu/ RSV test is only for use under the Food and Drug Administration's Emergency Use Authorization. Testing is limited to laboratories certified under the Clinical Laboratory Improvement Amendments of 1988 (CLIA), 42 U.S.C. ? 263a, to perform high and moderate complexity tests. Fact Sheets for Healthcare Providers and Patients can be found on the [facility] Website, [email or web address] Testing performed at [facility], [address] [place] [address] SARS-CoV-2 (COVID-19) RNA CYNTHIA+probe Ql (Unsp spec) Negative Normal Negative [facility] Comment on above: Order Comment: The Xpert Xpress SARS-CoV-2/ Flu/ RSV test is a rapid, multiplexed real-time RT-PCR test intended for the simultaneous qualitative detection and differentiation of SARS-CoV-2, influenza A, influenza B, and respiratory syncytial virus (RSV) viral RNA in either nasopharyngeal swab, nasal swab or nasal wash/aspirate specimens collected from individuals suspected of respiratory viral infection by their healthcare provider. Clinical signs and symptoms of respiratory viral infection due to SARS-CoV-2, influenza, and RSV can be similar. Results are for the simultaneous detection and differentiation of SARS-CoV-2, influenza A virus, influenza B virus and RSV ribonucleic acids in clinical specimens and is not intended to detect influenza C virus. SARS-CoV-2, influenza A, influenza B and RSV RNA identified by this test are generally detectable in upper respiratory specimens during the acute phase of infection. Positive results are indicative of the presence of the identified virus, but do not rule out bacterial infection or co-infection with other pathogens not detected by the test. Recent patient exposure to FluMist? or other live attenuated influenza vaccines may cause inaccurate positive results for influenza A and/ or B. Negative results do not preclude SARS-CoV-2, influenza A virus, influenza B virus and/ or RSV infection and should not be used as the sole basis for treatment or other patient management decisions. Negative results must be combined with clinical observations, patient history, and epidemiological information. The Xpert Xpress SARS-CoV-2/ Flu/ RSV test is only for use under the Food and Drug Administration's Emergency Use Authorization. Testing is limited to laboratories certified under the Clinical Laboratory Improvement Amendments of 1988 (CLIA), 42 U.S.C. ? 263a, to perform high and moderate complexity tests. Fact Sheets for Healthcare Providers and Patients can be found on the [facility] Website, [email or web address] Testing performed at [facility], [address] [place] [address] Specimen source Nom (Unsp spec) [facility] Comment on above: Order Comment: The Xpert Xpress SARS-CoV-2/ Flu/ RSV test is a rapid, multiplexed real-time RT-PCR test intended for the simultaneous qualitative detection and differentiation of SARS-CoV-2, influenza A, influenza B, and respiratory syncytial virus (RSV) viral RNA in either nasopharyngeal swab, nasal swab or nasal wash/aspirate specimens collected from individuals suspected of respiratory viral infection by their healthcare provider. Clinical signs and symptoms of respiratory viral infection due to SARS-CoV-2, influenza, and RSV can be similar. Results are for the simultaneous detection and differentiation of SARS-CoV-2, influenza A virus, influenza B virus and RSV ribonucleic acids in clinical specimens and is not intended to detect influenza C virus. SARS-CoV-2, influenza A, influenza B and RSV RNA identified by this test are generally detectable in upper respiratory specimens during the acute phase of infection. Positive results are indicative of the presence of the identified virus, but do not rule out bacterial infection or co-infection with other pathogens not detected by the test. Recent patient exposure to FluMist? or other live attenuated influenza vaccines may cause inaccurate positive results for influenza A and/ or B. Negative results do not preclude SARS-CoV-2, influenza A virus, influenza B virus and/ or RSV infection and should not be used as the sole basis for treatment or other patient management decisions. Negative results must be combined with clinical observations, patient history, and epidemiological information. The Xpert Xpress SARS-CoV-2/ Flu/ RSV test is only for use under the Food and Drug Administration's Emergency Use Authorization. Testing is limited to laboratories certified under the Clinical Laboratory Improvement Amendments of 1988 (CLIA), 42 U.S.C. ? 263a, to perform high and moderate complexity tests. Fact Sheets for Healthcare Providers and Patients can be found on the [facility] Website, [email or web address] Testing performed at [facility], [address] [place] [address] 74336 Scanon 10-06-2023 Slide Scan Normal Normal Normal [facility] Comment on above: Order Comment: Testi ng performed at [facility], [address] [place], [place] [address] Slide Scan Normal Normal Normal [facility] Comment on above: Order Comment: Testi ng performed at [facility], [address] [place] [address] 14269 Troponin Ion 10-06-2023 YRIS <0.02 Normal 0.00-0.12 [facility] Comment on above: Order Comment: Testi ng performed at [facility], [address] [place] [address] 38685 Result Comment: AMI diagnostic cut-off is 0.120 ng/mL. The Troponin I Reference Range is based upon [employer] Immunodiagnostic clinical study. The 99th Percentile upper reference limit is 0.034 ng/mL. Troponin I appears to be elevated only in diseases that directly involve the heart. Interpretation of Troponin I results should be done only in the context of the overall clinical picture, e.g., clinical history, EKG, and other lab tests. Biotin (Vitamin B7) levels higher than the recommended daily allowance (0.03mg) may cause falsely decreased values. Venous Blood Gas (B)on 10-05 LI, Venous (B) 6.6 mmol/L High -2.0-2.0 [facility] Comment on above: Order Comment: [facility], [address] [place] [address] CO2 [Moles/Vol] 73.1 mmol/L High 24.0-30.0 [facility] Comment on above: Order Comment: Test[facility] ng performed [facility], [address] [place] [address] Draw Site (B) Venous Normal [facility] Comment on above: Order Comment: Testi ng performed at [facility], [address] [place] [address] HCO3 (Bld) [Moles/Vol] 34.5 mmol/L High 22.0-26.0 [facility] Comment on above: Order Comment: Testi ng performed at [facility], [address] [place] [address] O2 Amt Admin (B) 10 LPM Normal [facility] Comment on above: Order Comment: Testi ng performed at [facility], [address] [place] [address] O2 Delivery (B) Oxygen Mask Normal [facility] Comment on above: Order Comment: Testi ng performed at [facility], [address] [place] [address] PCO2, Venous (B) 67.0 mm[Hg] High 41.0-51.0 [facility] Comment on above: Order Comment: Testi ng performed at [facility], [address] [place] [address] PH, Venous (B) 7.32 Normal 7.32-7.42 [facility] Comment on above: Order Comment: Testi ng performed at [facility], [address] [place] [address] PO2, Venous (B) 38.2 mm[Hg] Normal 25.0-40.0 [facility] Comment on above: Order Comment: Testi ng performed at [facility], [address] [place] [address] SO2, Venous (B) 71.6 % High 40.0-70.0 [facility] Comment on above: Order Comment: Testi ng performed at [facility], [address] [place] [address], [place] [address] XRAY CHEST PORTABLE 1 VIEWon 10-06-2023 XRAY CHEST PORTABLE 1 VIEW EXAM INFORMATION: Examination: XRAY CHEST PORTABLE 1 VIEW Date of Exam: 10/06/2023 12:20 am Diagnosis/Reason for Exam: shortness of breath; Shortness of breath Additional History: sob, few days Number of views: 1 Comparison: No comparisons DISCUSSION: Lungs / pleura: Low lung volumes. Mild right infrahilar airspace disease. Heart / mediastinum: Cardiomediastinal contours are normal allowing for patient rotation. Bones: Unremarkable. IMPRESSION Right infrahilar atelectasis/infiltrate. Interpretation by Alfred Diaz M.D. Professional Interpretation by Radiology Reading workstation: [id number] Normal [facility] Lipid Profileon 07-01-2023 Cholesterol [Mass/Vol] 125 mg/dL Normal 0-199 [facility] Comment on above: Result Comment: Cholesterol Guidelines: <200 Desirable 200-240 Borderline >240 Undesirable Performed By: #### L IVP, TSH #### [facility] [address] [place] [address] Aquaculturist: Rasheed Amor MD #### LIPR #### [address] [address] Aquaculturist: Daniel Perez MD Cholesterol in HDL [Mass/Vol] 25 mg/dL Low >40 [facility] Comment on above: Result Comment: HDL Guidelines: <40 Undesirable 40-59 Borderline >59 Desirable Performed By: #### L IVP, TSH #### [facility] [address] [place] [address] Aquaculturist: Rasheed Amor MD #### LIPR #### [address] [id number] Aquaculturist: Daniel Perez MD Cholesterol in LDL [Mass/Vol] 59 mg/dL Normal 0-100 [facility] Comment on above: Result Comment: LDL Guidelines: <100 Desirable 100-129 Near to/above Desirable 130-159 Borderline >159 Undesirable Direct (measured) LDL and calculated LDL are not interchangeable tests. Performed By: #### L IVP, TSH #### [facility] [address] [place] [address] Aquaculturist: Rasheed Amor MD #### LIPR #### [address] [address] Aquaculturist: Daniel Perez MD Cholesterol in VLDL [Mass/Vol] 41 mg/dL Normal [facility] Comment on above: Performed By: #### L IVP, TSH #### [facility] [address] [place] [address] Aquaculturist: Rasheed Amor MD #### LIPR #### [address] [id number] Aquaculturist: Daniel Perez MD Cholesterol.total/Cielo sterol in HDL [Mass ratio] 5.0 {ratio} Normal [facility] Comment on above: Performed By: #### L IVP, TSH #### [facility] [address] [place] [address] Aquaculturist: Rasheed Amor MD #### LIPR #### [address] [address] Aquaculturist: Daniel Perez MD Triglyceride [Mass/Vol] 205 mg/dL High <150 M [facility] Comment on above: Result Comment: Triglyceride Guidelines: <150 Desirable 150-199 Borderline 200-499 High >499 Very high Based on AHA Guidelines for fasting triglyceride, March 2012. Performed By: #### L IVP, TSH #### [facility] [address] [place] [address] Aquaculturist: Rasheed Amor MD #### LIPR #### [address] [address] Aquaculturist: Daniel Perez MD Liver Profileon 07-01-2023 Albumin [Mass/Vol] 3.5 g/dL Normal 3.5-5.2 [facility] Comment on above: Performed By: #### L IVP, TSH #### [facility] [address] [place] [address] Aquaculturist: Rasheed Amor MD #### LIPR #### [address] [address] Aquaculturist: Daniel Perez MD Alkaline Phos 132 U/L High 35-104 [facility] Comment on above: Performed By: #### L IVP, TSH #### [facility] [address] [place] [address] Aquaculturist: Rasheed Amor MD #### LIPR #### [address] [address] Aquaculturist: Daniel Perez MD ALT [Catalytic activity/Vol] 12 U/L Normal 5-33 [facility] Comment on above: Performed By: #### L IVP, TSH #### [facility] [address] [place] [address] Aquaculturist: Rasheed Amor MD #### LIPR #### [address] [address] Aquaculturist: Daniel Perez MD AST [Catalytic activity/Vol] 9 U/L Normal <32 [facility] Comment on above: Performed By: #### L IVP, TSH #### [facility] [address] [place] [address] Aquaculturist: Rasheed Amor MD #### LIPR #### [address] [address] Aquaculturist: Daniel Perez MD Bilirubin [Mass/Vol] 0.2 mg/dL Low 0.3-1.2 [facility] Comment on above: Performed By: #### L IVP, TSH #### [facility] [address] [place] [address] Aquaculturist: Rasheed Amor MD #### LIPR #### [address] [address] Aquaculturist: Daniel Perez MD Bilirubin, Indirect Can not be calculated Normal 0.0-1 .0 [facility] Comment on above: Performed By: #### L IVP, TSH #### [facility] [address] [place] [address] Aquaculturist: Rasheed Amor MD #### LIPR #### [address] [address] Aquaculturist: Daniel Perez MD Bilirubin.indirect [Mass/Vol] mg/dL Normal <0.3 [facility] Comment on above: Performed By: #### L IVP, TSH #### [facility] [address] [place] [address] Aquaculturist: Rasheed Amor MD #### LIPR #### [address] [address] Aquaculturist: Daniel Perez MD Protein [Mass/Vol] 7.3 g/dL Normal 6.4-8.3 [facility] Comment on above: Performed By: #### L IVP, TSH #### [facility] [address] [place] [address] Aquaculturist: Rasheed Amor MD #### LIPR #### [address] [phone] Aquaculturist: Daniel Perez MD Thyroid Stim. Horm.on 2023 Thyroid Stim. Horm. 0.23 uIU/mL Low 0.30-5.00 [facility] Comment on above: Performed By: #### L IVP, TSH #### [facility] [address] [place] [address] Aquaculturist: Rasheed Amor MD #### LIPR #### [address] [address] Aquaculturist: Daniel Perez MD CBCon 02-06-2023 Erythrocyte distribution width (RBC) [Ratio] 15.4 % High 11.8-14.4 [facility] Comment on above: Performed By: #### T SH, FT4, CBC, CP #### [facility] [address] [place] [address] Aquaculturist: Rasheed Amor MD #### GLYHGB #### [address] [address] Aquaculturist: Daniel Perez MD Hematocrit (Bld) [Volume fraction] 41.8 % Normal 36.3-47.1 [facility] Comment on above: Performed By: #### T SH, FT4, CBC, CP #### [facility] [address] [place] [address] Aquaculturist: Rasheed Amor MD #### GLYHGB #### [address] [address] Aquaculturist: Daniel Perez MD Hemoglobin (Bld) [Mass/Vol] 12.6 g/dL Normal 11.9-15.1 [facility] Comment on above: Performed By: #### T SH, FT4, CBC, CP #### [facility] [address] [place] [address] Aquaculturist: Rasheed Amor MD #### GLYHGB #### [address] [address] Aquaculturist: Daniel Perez MD MCH (RBC) [Entitic mass] 25.3 pg Normal 25.2-33.5 [facility] Comment on above: Performed By: #### T SH, FT4, CBC, CP #### [facility] [address] [place] [address] Aquaculturist: Rasheed Amor MD #### GLYHGB #### [address] [address] Aquaculturist: Daniel Perez MD MCHC (RBC) [Mass/Vol] 30.1 g/dL Normal 28.4-34.8 [facility] Comment on above: Performed By: #### T SH, FT4, CBC, CP #### [facility] [address] [place] [address] Aquaculturist: Rasheed Amor MD #### GLYHGB #### [address] [address] Aquaculturist: Daniel Perez MD MCV (RBC) [Entitic vol] 83.9 fL Normal 82.6-102.9 M [facility] Comment on above: Performed By: #### T SH, FT4, CBC, CP #### [facility] [address] [place] [address] Aquaculturist: Rasheed Amor MD #### GLYHGB #### [address] [address] Aquaculturist: Daniel Perez MD NRBC Automated 0.0 per 100 WBC Normal 0.0 [facility] Comment on above: Performed By: #### T SH, FT4, CBC, CP #### [facility] [address] [place] [address] Aquaculturist: Rasheed Amor MD #### GLYHGB #### [address] [address] Aquaculturist: Daniel Perez MD Platelet mean volume (Bld) [Entitic vol] 10.4 fL Normal 8.1-13.5 [facility] Comment on above: Performed By: #### T SH, FT4, CBC, CP #### [facility] [address] [place] [address] Aquaculturist: Rasheed Amor MD #### GLYHGB #### [address] [address] Aquaculturist: Daniel Perez MD Platelets (Bld) [#/Vol] 225 10*3/uL Normal 138-453 [facility] Comment on above: Performed By: #### T SH, FT4, CBC, CP #### [facility] [address] [place] [address] Aquaculturist: Rasheed Amor MD #### GLYHGB #### [address] [address] Aquaculturist: Daniel Perez MD RBC (Bld) [#/Vol] 4.98 10*6/uL Normal 3.95-5.11 [facility] Comment on above: Performed By: #### T SH, FT4, CBC, CP #### [facility] [address] [place], [place] [id number] Aquaculturist: Rasheed Amor MD #### GLYHGB #### [facility] [address] [place], [place] [phone] Aquaculturist: Daniel Perez MD WBC (Bld) [#/Vol] 8.5 10*3/uL Normal 3.5-11.3 [facility] Comment on above: Performed By: #### T SH, FT4, CBC, CP #### [facility] [address] [place], [place] [phone] Aquaculturist: Rasheed Amor MD #### GLYHGB #### [address] [place], [place] [phone] Aquaculturist: Daniel Perez MD Erythrocyte distribution width (RBC) [Ratio] 15.4 % High 11.8 - 14.4 % [facility] Hematocrit (Bld) [Volume fraction] 41.8 % 36.3 - 47.1 % [facility] Hemoglobin (Bld) [Mass/Vol] 12.6 g/dL 11.9 - 15.1 g/dL [facility] Interpretation and review of laboratory results Abnormal [facility] MCH (RBC) [Entitic mass] 25.3 pg 25.2 - 33.5 pg [facility] MCHC (RBC) [Mass/Vol] 30.1 g/dL 28.4 - 34.8 g/dL [facility] MCV (RBC) [Entitic vol] 83.9 fL 82.6 - 102.9 fL [facility] Nucleated RBC/100 WBC (Bld) [Ratio] 0.0 % 0.0 per 100 WBC [facility] Platelet mean volume (Bld) [Entitic vol] 10.4 fL 8.1 - 13.5 fL [facility] Platelets (Bld) [#/Vol] 225 10*3/uL [facility] RBC (Bld) [#/Vol] 4.98 10*6/uL 3.95 - 5.11 m/uL [facility] WBC other (Bld) [#/Vol] 8.5 B ON [facility] Comp Metabolic Profon 2022 Albumin [Mass/Vol] 3.2 g/dL Low 3.5-5.2 [facility] Comment on above: Performed By: #### T SH, FT4, CBC, CP #### [facility] [address] [place] [address] Aquaculturist: Rasheed Amor MD #### GLYHGB #### [address] [phone] Aquaculturist: Daniel Perez MD Alkaline Phos 130 U/L High 35-104 [facility] Comment on above: Performed By: #### T SH, FT4, CBC, CP #### [facility] [address] [place] [address] Aquaculturist: Rasheed Amor MD #### GLYHGB #### [address] [address] Aquaculturist: Daniel Perez MD ALT [Catalytic activity/Vol] 15 U/L Normal 5-33 [facility] Comment on above: Performed By: #### T SH, FT4, CBC, CP #### [facility] [address] [place] [address] Aquaculturist: Rasheed Amor MD #### GLYHGB #### [address] [phone] Aquaculturist: Daniel Perez MD Anion gap [Moles/Vol] 11 mmol/L Normal 9-17 [facility] Comment on above: Performed By: #### T SH, FT4, CBC, CP #### [facility] [address] [place] [address] Aquaculturist: Rasheed Amor MD #### GLYHGB #### [address] [address] Aquaculturist: Daniel Perez MD AST [Catalytic activity/Vol] 12 U/L Normal <32 [facility] Comment on above: Performed By: #### T SH, FT4, CBC, CP #### [facility] [address] [place] [address] Aquaculturist: Rasheed Amor MD #### GLYHGB #### [address] [address] Aquaculturist: Daniel Perez MD Bilirubin [Mass/Vol] 0.2 mg/dL Low 0.3-1.2 [facility] Comment on above: Performed By: #### T SH, FT4, CBC, CP #### [facility] [address] [place] [address] Aquaculturist: Rasehed Amor MD #### GLYHGB #### [address] [address] Aquaculturist: Daniel Perez MD BUN/CRE Ratio 19 Normal 9-20 [facility] Comment on above: Performed By: #### T SH, FT4, CBC, CP #### [facility] [address] [place] [address] Aquaculturist: Rasheed Amor MD #### GLYHGB #### [address] [address] Aquaculturist: Daniel Perez MD Calcium [Mass/Vol] 8.9 mg/dL Normal 8.6-10.4 [facility] Comment on above: Performed By: #### T SH, FT4, CBC, CP #### [facility] [address] [place] [address] Aquaculturist: Rasheed Amor MD #### GLYHGB #### [address] [address] Aquaculturist: Daniel Perez MD Chloride [Moles/Vol] 99 mmol/L Normal 98-107 [facility] Comment on above: Performed By: #### T SH, FT4, CBC, CP #### [facility] [address] [place] [address] Aquaculturist: Rasheed Amor MD #### GLYHGB #### [address] [address] Aquaculturist: Daniel Perez MD CO2 [Moles/Vol] 27 mmol/L Normal 20-31 [facility] Comment on above: Performed By: #### T SH, FT4, CBC, CP #### [facility] [address] [place] [address] Aquaculturist: Rasheed Amor MD #### GLYHGB #### [address] [address] Aquaculturist: Daniel Perez MD Creatinine [Mass/Vol] 0.8 mg/dL Normal 0.5-0.9 [facility] Comment on above: Performed By: #### T SH, FT4, CBC, CP #### [facility] [place] [address] Aquaculturist: Rasheed Amor MD #### GLYHGB #### [address] [address] Aquaculturist: Daniel Perez MD GFR/1.73 sq M.predicted among non-blacks MDRD (S/P/Bld) [Vol rate/Area] mL/min/{1.73_m2} Normal >60 [facility] Comment on above: Result Comment: These results are not intended for use in patients <18 years of age. eGFR results are calculated without a race factor using the 2020 CKD-EPI equation. Careful clinical correlation is recommended, particularly when comparing to results calculated using previous equations. The CKD-EPI equation is less accurate in patients with extremes of muscle mass, extra-renal metabolism of creatine, excessive creatine ingestion, or following therapy that affects renal tubular secretion. Performed By: #### T SH, FT4, CBC, CP #### [facility] [address] [place] [address] Aquaculturist: Rasheed Amor MD #### GLYHGB #### [address] [address] Aquaculturist: Daniel Perez MD Glucose [Mass/Vol] 311 mg/dL High 70-99 [facility] Comment on above: Performed By: #### T SH, FT4, CBC, CP #### [facility] [address] [place] [address] Aquaculturist: aRsheed Amor MD #### GLYHGB #### [address] [address] Aquaculturist: Daniel Perez MD Potassium [Moles/Vol] 4.3 mmol/L Normal 3.7-5.3 [facility] Comment on above: Performed By: #### T SH, FT4, CBC, CP #### [facility] [address] [place] [address] Aquaculturist: Rasheed Amor MD #### GLYHGB #### [address] [address] Aquaculturist: Daniel Perez MD Protein [Mass/Vol] 6.7 g/dL Normal 6.4-8.3 [facility] Comment on above: Performed By: #### T SH, FT4, CBC, CP #### [facility] [address] [place] [address] Aquaculturist: Rasheed Amor MD #### GLYHGB #### [address] [address] Aquaculturist: Daniel Perez MD Sodium [Moles/Vol] 137 mmol/L Normal 135-144 [facility] Comment on above: Performed By: #### T SH, FT4, CBC, CP #### [facility] [address] [place] [address] Aquaculturist: Rasheed Amor MD #### GLYHGB #### [address] [address] Aquaculturist: Daniel Perez MD Urea nitrogen [Mass/Vol] 15 mg/dL Normal 6-20 [facility] Comment on above: Performed By: #### T SH, FT4, CBC, CP #### [facility] [address] [place] [address] Aquaculturist: Rasheed Amor MD #### GLYHGB #### [address] [address] Aquaculturist: Daniel Perez MD [facility] Metabolic Pane [facility] 02-06-2023 Albumin [Mass/Vol] 3.2 g/dL Low 3.5 - 5.2 g/dL [facility] ALP [Catalytic activity/Vol] 130 U/L High 35 - 104 U/L [facility] ALT [Catalytic activity/Vol] 15 U/L 5 - 33 U/L [facility] Anion gap [Moles/Vol] 11 mmol/L 9 - 17 mmol/L [facility] AST [Catalytic activity/Vol] 12 U/L NINF - 32 U/L [facility] Bilirubin [Mass/Vol] 0.2 mg/dL Low 0.3 - 1 .2 mg/dL [facility] Calcium [Mass/Vol] 8.9 mg/dL 8.6 - 10. 4 mg/dL [facility] Chloride [Moles/Vol] 99 mmol/L 98 - 10 7 mmol/L [facility] CO2 [Moles/Vol] 27 mmol/L 20 - 31 mmol/L [facility] Creatinine [Mass/Vol] 0.8 mg/dL 0.5 - 0.9 mg/dL [facility] GFR/1.73 sq M.predicted MDRD (S/P/Bld) [Vol rate/Area] - PINF [facility] Comment on above: These results are not intended for use in patients <18 years of age. eGFR results are calculated without a race factor using the 2020 CKD-EPI equation. Careful clinical correlation is recommended, particularly when comparing to results calculated using previous equations. The CKD-EPI equation is less accurate in patients with extremes of muscle mass, extra-renal metabolism of creatine, excessive creatine ingestion, or following therapy that affects renal tubular secretion. Glucose [Mass/Vol] 311 mg/dL High 70 - 99 mg/dL [facility] Interpretation and review of laboratory results Abnormal [facility] Potassium [Moles/Vol] 4.3 mmol/L 3.7 - 5.3 mmol/L [facility] Protein [Mass/Vol] 6.7 g/dL 6.4 - 8.3 g/dL [facility] Sodium [Moles/Vol] 137 mmol/L 135 - 144 mmol/L [facility] Urea nitrogen [Mass/Vol] 15 mg/dL 6 - 20 mg/dL [facility] Urea nitrogen/Creatinine [Mass ratio] 19 mg/mg 9 - 20 [facility] Hemoglobin A1Con 02-06-2023 Glucose [Mass/Vol] 298 mg/dL Normal [facility] Comment on above: Result Comment: The ADA and AACC recommend providing the estimated average glucose result to permit better patient understanding of their HBA1c result. Performed By: #### T SH, FT4, CBC, CP #### [facility] [address] [place] [address] Aquaculturist: Rasheed Amor MD #### GLYHGB #### [facility] [address] [place] [address] Aquaculturist: Daniel Perez MD HbA1c (Bld) [Mass fraction] 12.0 % High 4.0-6.0 [facility] Comment on above: Performed By: #### T SH, FT4, CBC, CP #### [facility] [address] [place] [address] Aquaculturist: Rasheed Amor MD #### GLYHGB #### [facility] [address] [place], [place] [phone] Aquaculturist: Daniel Perez MD Average glucose Estimated from glycated hemoglobin (Bld) [Mass/Vol] 298 mg/dL [facility] Comment on above: The ADA and AACC rec ommend providing the estimated average glucose result to permit better patient understanding of their HBA1c result. HbA1c (Bld) [Mass fraction] 12.0 % High 4.0 - 6.0 % [facility] Interpretation and review of laboratory results Abnormal [facility] No Panel Informationon 02-06 [facility] T4, Freeon 02-06-2023 Free T4 [Mass/Vol] 1.5 ng/dL 0.9 - 1.7 ng/dL [facility] TSHon 02-06-2023 TSH Qn 0.76 m[IU]/L [facility] Thyroid Stim. Horm.on 2022 Thyroid Stim. Horm. 0.76 uIU/mL Normal 0.30-5.00 [facility] Comment on above: Performed By: #### T SH, FT4, CBC, CP #### [facility] [address] [place] [address] Aquaculturist: Rasheed Amor MD #### GLYHGB #### [facility] [address] [place] [address] Aquaculturist: Daniel Perez MD Thyroxine, Freeon 02-06-2023 Thyroxine, Free 1.5 ng/dL Normal 0.9-1.7 [facility] Comment on above: Performed By: #### T SH, FT4, CBC, CP #### [facility] [address] [place], [place] [id number] Aquaculturist: Rasheed Amor MD #### GLYHGB #### [facility] [address] [place] [address] Aquaculturist: Daniel Perez MD Letter (Out)on 12-26-2022 Letter (Out) [id number] Bruce Manzanares 1965 F [facility] Provider Department [place] 12/26/2022 None-None [facility] No family history on file Normal [facility] Letter (Out)on 12-17-2022 Letter (Out) [id number] Bruce Manzanares 1965 [facility] Department [place] 12/17/2022 None-None [facility] No family history on file [facility] CT HEAD WO CONTRASTon 2022 CT HEAD WO CONTRAST EXAMINATION: CT OF THE HEAD WITHOUT CONTRAST 10/12/2022 3:53 pm TECHNIQUE: CT of the head was performed without the administration of intravenous contrast. Automated exposure control, iterative reconstruction, and/or weight based adjustment of the mA/kV was utilized to reduce the radiation dose to as low as reasonably achievable. COMPARISON: None. HISTORY: ORDERING SYSTEM PROVIDED HISTORY: rule out intracranial bleed, on [employer] TECHNOLOGIST PROVIDED HISTORY: rule out intracranial bleed, on [employer] Decision Support Exception - unselect if not a suspected or confirmed emergency medical condition->Emergency Medical Condition (MA) FINDINGS: BRAIN/VENTRICLES: There is no acute intracranial hemorrhage, mass effect or midline shift. No abnormal extra-axial fluid collection. The diamond-white differentiation is maintained without evidence of an acute infarct. There is no evidence of hydrocephalus. ORBITS: The visualized portion of the orbits demonstrate no acute abnormality. SINUSES: The visualized paranasal sinuses and mastoid air cells demonstrate no acute abnormality. SOFT TISSUES/SKULL: No acute abnormality of the visualized skull or soft tissues. IMPRESSION: No acute intracranial findings. Interpreted by: Jeison Moralez MD Signed by: Jeison Moralez MD 10/12/22 Final result Normal [facility] 29on 09-17-2022 29 Addended by: JOHANA CLIFFORD on: 09/17/2022 04:55 PM Modules accepted: Level of Service Normal [facility] Clinical Supporton 3 Clinical Support [id number] Bettie Manzanaresricky Kirkland 1965 F Date Provider Department Center 09/17/2022 TORRI PORTILLO MP [facility] No family history on file Normal [facility] Office Visiton 09-17-2022 Follow-up visit [id number] Bettie Manzanaresricky Kirkland 1965 Provider Department Center 09/17/2022 275-JOHANA CLIFFORD PHYS MED [facility] No family history on file Level of Service:06427 [place] OFFICE/OUTPATIENT ESTABLISHED LOW MDM 20-29 MIN (GC) Reason for Visit and Comments: Seating visit [Other] Normal [facility] B-TYPE NATRIURETIC PEPTIDEon 09-07-2022 Natriuretic peptide B (Bld) [Mass/Vol] 49 pg/mL Normal 0-100 [facility] Comment on above: Performed By: #### L [id number] #### [facility] ([facility]) [address] [place] [address] BASIC METABOLIC PANELon 08-10 Anion gap [Moles/Vol] 12 mmol/L Normal 7-20 [facility] Comment on above: Performed By: #### L AB15 #### [facility] ([facility]) [address] [place] [address] Calcium [Mass/Vol] 8.9 mg/dL Normal 8.6-10.3 [facility] Comment on above: Performed By: #### L AB15 #### [facility] ([facility]) [address] [place] [address] Chloride [Moles/Vol] 100 mmol/L Normal 98-107 [facility] Comment on above: Performed By: #### L AB15 #### [facility] ([facility]) [address] [place] [address] CO2 [Moles/Vol] 30 mmol/L Normal 21-31 [facility] Comment on above: Performed By: #### L AB15 #### [facility] ([facility]) [address] [place] [address] Creatinine [Mass/Vol] 0.97 mg/dL Normal 0.60-1.20 [facility] Comment on above: Performed By: #### L AB15 #### [facility] ([facility]) [address] [place] [address] GLOMERULAR FILTRATION RATE ML/MIN/1.73 SQ M.PREDICTED 67.3 mL/min/1.73m*2 Normal >60.0 [facility] Comment on above: Result Comment: The [facility]???s estimated glomerular filtration rate (eGFR) will no longer include consideration of race in its calculation. The National Kidney Foundation???s eGFR Task Force developed new recommendations for the estimation of the glomerular filtration rate in the [place] They recommend immediate implementation of the new equation refit without the race variable in all laboratories because the calculation does not include race. In addition to not including race in the calculation and reporting, it included diversity in its development, and has acceptable performance characteristics and potential consequences that do not disproportionately affect any one group of individuals. Performed By: #### L AB15 #### [facility] H[facility]PITAL) [address] [place] [address] Glucose [Mass/Vol] 104 mg/dL High 70-100 [facility] Comment on above: Performed By: #### L [id number] #### [facility] ([facility]) [address] [place] [address] Potassium [Moles/Vol] 3.9 mmol/L Normal 3.5-5.1 [facility] Comment on above: Performed By: #### L [id number] #### [facility] ([facility]) [address] [place] [address] Sodium [Moles/Vol] 138 mmol/L Normal 136-145 [facility] Comment on above: Performed By: #### L [id number] #### [facility] ([facility]) [address] [place] [address] Urea nitrogen [Mass/Vol] 23 mg/dL Normal 7-25 [facility] Comment on above: Performed By: #### L [id number] #### [facility] ([facility]) [address] [place] [address] UREA NITROGEN/CREATININE (MASS RATIO) IN SER/PLAS 23.7 Normal [facility] Comment on above: Performed By: #### L [id number] #### [facility] ([facility]) [address] [place] [address] CBC WITH AUTO DIFFERENTIALon 09-07-2022 Basophils (Bld) [#/Vol] 0.04 10*3/uL Normal 0.00-0.20 [facility] Comment on above: Performed By: #### L [id number] #### [facility] ([facility]) [address] [place] [address] Basophils/100 WBC (Bld) 0.4 % Normal 0.0-1.0 [facility] Comment on above: Performed By: #### L [id number] #### [facility] ([facility]) [address] [place] [address] Eosinophils (Bld) [#/Vol] 0.20 10*3/uL Normal 0.00-0.50 [facility] Comment on above: Performed By: #### L [id number] #### [facility] ([facility]) [address] [place] [address] Eosinophils/100 WBC (Bld) 1.9 % Normal 0.0-6.0 [facility] Comment on above: Performed By: #### L [id number] #### [facility] ([facility]) [address] [place] [address] Erythrocyte distribution width (RBC) [Ratio] 16.5 % High 11.5-15.0 [facility] Comment on above: Performed By: #### L [id number] #### [facility] ([facility]) [address] [place] [address] ERYTHROCYTE MEAN CORPUSCULAR HEMOGLOBIN CONCENTRATION (G/DL) BY AUTOMATED 31.1 g/dL Low 32.0-35.0 [facility] Comment on above: Performed By: #### L [id number] #### [facility] ([facility]) [address] [place] [address] Hematocrit (Bld) [Volume fraction] 38.9 % Normal 36.0-48.0 [facility] Comment on above: Performed By: #### L [id number] #### [facility] ([facility]) [address] [place] [address] Hemoglobin (Bld) [Mass/Vol] 12.1 g/dL Normal 12.0-15.0 [facility] Comment on above: Performed By: #### L [id number] #### [facility] ([facility]) [address] [place] [address] Immature granulocytes (Bld) [#/Vol] 0.08 10*3/uL Normal 0.00-0.20 [facility] Comment on above: Performed By: #### L [id number] #### [facility] ([facility]) [address] [place] [address] Immature granulocytes/100 WBC (Bld) 0.7 % Normal 0.0-1.0 [facility] Comment on above: Performed By: #### L [id number] #### [facility] ([facility]) [address] [place] [address] Lymphocytes (Bld) [#/Vol] 1.58 10*3/uL Normal 1.20-4.00 [facility] Comment on above: Performed By: #### L [id number] #### [facility] ([facility]) [address] [place] [address] Lymphocytes/100 WBC (Bld) 14.7 % Low 20.0-45.0 [facility] Comment on above: Performed By: #### L [id number] #### [facility] ([facility]) [address] [place] [address] MCH (RBC) [Entitic mass] 24.8 pg Low 27.0-33.0 [facility] Comment on above: Performed By: #### L [id number] #### [facility] ([facility]) [address] [place] [address] MCV (RBC) [Entitic vol] 79.7 fL Low 82.0-98.0 [facility] Comment on above: Performed By: #### L [id number] #### [facility] ([facility]) [address] [place] [address] Monocytes (Bld) [#/Vol] 0.51 10*3/uL Normal 0.10-1.00 [facility] Comment on above: Performed By: #### L [id number] #### [facility] ([facility]) [address] [place] [address] Monocytes/100 WBC (Bld) 4.7 % Low 5.0-12.0 [facility] Comment on above: Performed By: #### L [id number] #### [facility] ([facility]) [address] [place] [address] Neutrophils (Bld) [#/Vol] 8.36 10*3/uL High 1.60-7.60 [facility] Comment on above: Performed By: #### L [id number] #### [facility] ([facility]) [address] [place] [address] Neutrophils/100 WBC (Bld) 77.6 % High 40.0-72.0 [facility] Comment on above: Performed By: #### L [id number] #### [facility] ([facility]) [address] [place] [address] NRBC (PER 100 WBCS) BY AUTOMATED COUNT 0.0 % Normal 0.0-0.0 [facility] Comment on above: Performed By: #### L [id number] #### [facility] ([facility]) [address] [place] [address] PLATELETS (10*3/UL) IN BLOOD AUTOMATED COUNT 292 10*3/uL Normal 150-400 [facility] Comment on above: Performed By: #### L [id number] #### [facility] ([facility]) [address] [facility] [place] [address] RBC (Bld) [#/Vol] 4.88 10*6/uL Normal 3.80-5.00 [facility] Comment on above: Performed By: #### L [id number] #### [facility] ([facility]) [address] [place] [address] WBC (Bld) [#/Vol] 10.77 10*3/uL High 4.00-10.60 [facility] Comment on above: Performed By: #### L [id number] #### [facility] ([facility]) [address] [place] [address] EDPROVon 09-07-2022 EDPROV HPI Chief Complaint Patient presents with Hyperglycemia Pt brought in by family with concern for high blood sugar. Hx DM. Pt states she recently left a assisted that was feeding me a lot of food that isn't good for diabetics. Pt reports increased thirst and urination. A 57 y.o female with stated Mhx including, CHF and T2 diabetes presents to the ED seeking blood sugar testing. Pt stated that she currently does not have any blood sugar testing equipment at home and that she recently was noted to have sugars in the 300s at [facility] recently. Pt reported she does not take insulin but takes metformin. Pt reporting dry mouth, thirst and frequent urination. Pt stated she has no pain at present but noted intermittent pins and needle sensation in her feet that is treated with neurotin. 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 No past surgical history on file. No family history on file. Social History Tobacco Use Smoking status: Not on file Smokeless tobacco: Not on file Substance Use Topics Alcohol use: Not on file Drug use: Not on file Review of Systems Review of Systems Constitutional: Negative for chills and fever. Frequent urination. Dry mouth. Thirst. HENT: Negative for ear pain and sore throat. Eyes: Negative for pain and visual disturbance. Respiratory: Negative for cough and shortness of breath. Cardiovascular: Negative for chest pain and palpitations. Gastrointestinal: Negative for abdominal pain and vomiting. Genitourinary: Negative for dysuria and hematuria. Musculoskeletal: Negative for arthralgias and back pain. Skin: Negative for color change and rash. Neurological: Negative for seizures and syncope. Physical Exam ED Triage Vitals [09/07/22 1034] Temp Heart Rate Resp BP 36.2 ???C (97.1 ???F) 67 16 138/83 SpO2 Temp Source Heart Rate Source Patient Position 97 % Temporal -- -- BP Location FiO2 (%) -- -- Physical Exam Vitals and nursing note reviewed. Constitutional: General: She is not in acute distress. Appearance: Normal appearance. HENT: Head: Normocephalic and atraumatic. Mouth/Throat: Mouth: Mucous membranes are dry. Eyes: Conjunctiva/sclera: Conjunctivae normal. Pupils: Pupils are equal, round, and reactive to light. Cardiovascular: Rate and Rhythm: Normal rate and regular rhythm. Pulmonary: Effort: Pulmonary effort is normal. No respiratory distress. Breath sounds: Normal breath sounds. Abdominal: Palpations: Abdomen is soft. Tenderness: There is no abdominal tenderness. Musculoskeletal: General: No tenderness or deformity. Normal range of motion. Cervical back: Normal range of motion and neck supple. Skin: General: Skin is warm and dry. Comments: Wound to distal right foot. Well healing with no erythema. Neurological: General: No focal deficit present. Mental Status: She is alert and oriented to person, place, and time. Mental status is at baseline. Psychiatric: Mood and Affect: Mood normal. Behavior: Behavior normal. Procedures ED Course & MDM ED Course as of 09/08/22 0848 SatSep 07, 2022 1236 Gerda With social work contacted court ordered stephan, but was unable to get a hold of, both patient and father believe patient is fine taking medications under the supervision of father, [RICHARD] ED Course User Index [RICHARD] Thomas Hassan MD Diagnoses as of 09/08/22 0848 Hyperglycemia Delayed wound healing Medical Decision Making Plan to obtain and analyze lab values. Patient presents with concerns of hyperglycemia, given patience need for diabetes equipment prescriptions were made for her equipment, lab work does not show any concerning signs of HHS or DKA. Lab work not consistent with infection, given patient wound on leg will send home with antibiotic until patient can see Podiatry in a week. Patient in no acute distress while in the ER vital signs not requiring any intervention. Giving stroke return precautions to return as to follow up with primary care doctor as soon as possible for continued management of diabetes and diabetes material. Amount and/or Complexity of Data Reviewed Labs: ordered. Attestation: I performed a history and physical exam on this patient and discussed his or her management with the resident. I reviewed the resident's note and agree with the documented findings and plan of care with the following exceptions: Provider Statement KELLY: Provider Statement 2nd Scribe. By electronically signing this emergency patient record, the Emergency Physician/ACOUSTICS TEACHER/PA-C attests that all entries made into the electronic medical record by the scribe prior to the Physician/ACOUSTICS TEACHER/PA-C signature reflect an accurate accounting of the evaluation and care rendered by that Emergency Physician/ACOUSTICS TEACHER/PA-C. The Emergency Physician/ACOUSTICS TEACHER/PA-C assumes full responsibility for those entries. (more content not included)... Normal [facility] URINALYSIS WITH REFLEX CULTU REon 09-07-2022 BILIRUBIN, TOTAL PRESENCE IN URINE Negative Normal Negative [facility] Comment on above: Order Comment: Micro scopics not performed on urines with negative chemical reactions unless requested on original order. Performed By: #### L [id number] #### [facility] ([facility]) [address] [place] [address] Clarity (U) Clear Normal Clear [facility] Comment on above: Order Comment: Micro scopics not performed on urines with negative chemical reactions unless requested on original order. Performed By: #### L [id number] #### [facility] ([facility]) [address] [place] [address] Color (U) Straw Abnormal Yellow [facility] Comment on above: Order Comment: Micro scopics not performed on urines with negative chemical reactions unless requested on original order. Performed By: #### L [id number] #### [facility] ([facility]) [address] [place] [address] Glucose (U) [Mass/Vol] Negative Normal [facility] Comment [facility]: Order Comment: Micro scopics not performed on urines with negative chemical reactions unless requested on original order. Performed By: #### L [id number] #### [facility] ([facility]) [address] [place] [address] HEMOGLOBIN PRESENCE IN URINE Negative Normal Negative [facility] Comment on above: Order Comment: Micro scopics not performed on urines with negative chemical reactions unless requested on original order. Performed By: #### L [id number] #### [facility] ([facility]) [address] [place] [address] Ketones Ql (U) Negative Normal Negative [facility] Comment on above: Order Comment: Micro scopics not performed on urines with negative chemical reactions unless requested on original order. Performed By: #### L [id number] #### [facility] ([facility]) [address] [place] [address] LEUKOCYTE ESTERASE PRESENCE IN URINE BY TEST STRIP Negative Normal Negative [facility] Comment on above: Order Comment: Micro scopics not performed on urines with negative chemical reactions unless requested on original order. Performed By: #### L [id number] #### [facility] ([facility]) [address] [place] [address] NITRITE PRESENCE IN URINE Negative Normal Negative [facility] Comment on above: Order Comment: Micro scopics not performed on urines with negative chemical reactions unless requested on original order. Performed By: #### L [id number] #### [facility] ([facility]) [address] [place] [address] pH (U) 5.0 [pH] Normal 5.0-8.0 [facility] Comment on above: Order Comment: Micro scopics not performed on urines with negative chemical reactions unless requested on original order. Performed By: #### L [id number] #### [facility] ([facility]) [address] [place] [address] Protein (U) [Mass/Vol] Negative Normal Negative Un [facility] Comment on above: Order Comment: Micro scopics not performed on urines with negative chemical reactions unless requested on original order. Performed By: #### L [id number] #### [facility] ([facility]) [address] [place] [address] Specific gravity (U) [Rel density] 1.006 Low 1.015-1.02 0 [facility] Comment on above: Order Comment: Micro scopics not performed on urines with negative chemical reactions unless requested on original order. Performed By: #### L [id number] #### [facility] ([facility]) [address] [place] [address] VENOUS BLOOD GAS WITH IONIZE D CALCIUMon 09-07-2022 Base excess Calc (BldV) [Moles/Vol] 7.8 mmol/L Normal [facility] Comment on above: Performed By: #### L [id number] #### [facility] ([facility]) [address] [address] CALCIUM IONIZED (MMOL/L) IN BLOOD 1.19 mmol/L Normal 1.15-1.33 [facility] Comment on above: Performed By: #### L [id number] #### [facility] ([facility]) [address] [place] [address] CO2 (BldV) [Partial pressure] 57 mm[Hg] High 40-50 [facility] Comment on above: Performed By: #### L [id number] #### [facility] ([facility]) [address] [place] [place] [address] HCO3 (Bld) [Moles/Vol] 34.5 mmol/L Normal [facility] Comment on above: Performed By: #### L [id number] #### [facility] ([facility]) [address] [place] [address] Oxygen (BldV) [Partial pressure] 27 mm[Hg] Low 35-45 [facility] Comment on above: Performed By: #### L [id number] #### [facility] ([facility]) [address] [place] [address] OXYGEN SATURATION (%) IN VENOUS BLOOD 42.5 % Invalid Interpretation Code 65.0-75.0 [facility] Comment on above: Performed By: #### L [id number] #### [facility] ([facility]) [address] [place] [address] PH OF VENOUS BLOOD 7.39 Normal 7.31-7.41 [facility] Comment on above: Performed By: #### L [id number] #### [facility] ([facility]) [address] [place] [address] POC Glucose Fingerstickon Glucose [Mass/Vol] 134 mg/dL High 65 - 105 mg/dL [facility] Interpretation and review of laboratory results Abnormal [facility] Glucose [Mass/Vol] 141 mg/dL High 65 - 105 mg/dL [facility] Interpretation and review of laboratory results Abnormal [facility] POC Glucose Fingerstickon Glucose [Mass/Vol] 178 mg/dL High 65 - 105 mg/dL [facility] Interpretation and review of laboratory results Abnormal [facility] COVID-19, Rapidon 08-31-2022 SARS-CoV-2 (COVID-19) RdRp gene CYNTHIA+probe Ql (Resp) Not detected Not Detected [facility] Comment on above: Rapid NAAT: The specimen is NEGATIVE for SARS-CoV-2, the novel coronavirus associated with COVID-19. The ID NOW COVID-19 assay is designed to detect the virus that causes COVID-19 in patients with signs and symptoms of infection who are suspected of COVID-19. An individual without symptoms of COVID-19 and who is not shedding SARS-CoV-2 virus would expect to have a negative (not detected) result in this assay. Negative results should be treated as presumptive and, if inconsistent with clinical signs and symptoms or necessary for patient management, should be tested with an alternative molecular assay. Negative results do not preclude SARS-CoV-2 infection and should not be used as the sole basis for patient management decisions. Fact sheet for Healthcare Providers: https://www.[facility].gov/media/117585/download Fact sheet for Patients: https://www.[facility].gov/media/151920/download Methodology: Isothermal Nucleic Acid Amplification Specimen Description .NASOPHARYNGEAL SWAB [facility] POC Glucose Fingerstickon Glucose [Mass/Vol] 109 mg/dL High 65 - 105 mg/dL [facility] Interpretation and review of laboratory results Abnormal [facility] Glucose [Mass/Vol] 138 mg/dL High 65 - 105 mg/dL [facility] Interpretation and review of laboratory results Abnormal [facility] [id number] 08-31-2022 SARS-CoV-2 (COVID-19) RNA CYNTHIA+probe Ql (Unsp spec) Not detected Normal [place] Comment on above: Result Comment: Rapid NAAT: The specimen is NEGATIVE for SARS-CoV-2, the novel coronavirus associated with COVID-19. The ID NOW COVID-19 assay is designed to detect the virus that causes COVID-19 in patients with signs and symptoms of infection who are suspected of COVID-19. An individual without symptoms of COVID-19 and who is not shedding SARS-CoV-2 virus would expect to have a negative (not detected) result in this assay. Negative results should be treated as presumptive and, if inconsistent with clinical signs and symptoms or necessary for patient management, should be tested with an alternative molecular assay. Negative results do not preclude SARS-CoV-2 infection and should not be used as the sole basis for patient management decisions. Fact sheet for Healthcare Providers: https://www.fda.gov/media/155594/download Fact sheet for Patients: https://www.fda.gov/media/398019/download Methodology: Isothermal Nucleic Acid Amplification Performed By: #### C OVRB #### [facility] [employer] [address] [place] [address] Aquaculturist: Daniel Perez MD POC Glucose Fingerstickon Glucose [Mass/Vol] 180 mg/dL High 65 - 105 mg/dL [facility] Interpretation and review of laboratory results Abnormal [facility] Glucose [Mass/Vol] 147 mg/dL High 65 - 105 mg/dL [facility] Interpretation and review of laboratory results Abnormal [facility] Orders Onlyon 08-29-2022 Orders Only [id number] Bruce Manzanares 1965 F Date Provider Department Center 08/29/2022 [id number] [facility] INT MED Comprehensiv No family history on file Normal [facility] POC Glucose Fingerstickon Glucose [Mass/Vol] 141 mg/dL High 65 - 105 mg/dL [facility] Interpretation and review of laboratory results Abnormal [facility] POC Glucose Fingerstickon Glucose [Mass/Vol] 135 mg/dL High 65 - 105 mg/dL [facility] Interpretation and review of laboratory results Abnormal [facility] Glucose [Mass/Vol] 179 mg/dL High 65 - 105 mg/dL [facility] Interpretation and review of laboratory results Abnormal [facility] POC Glucose Fingerstickon Glucose [Mass/Vol] 209 mg/dL High 65 - 105 mg/dL [facility] Interpretation and review of laboratory results Abnormal [facility] Glucose [Mass/Vol] 301 mg/dL High 65 - 105 mg/dL [facility] Interpretation and review of laboratory results Abnormal [facility] Glucose [Mass/Vol] 338 mg/dL High 65 - 105 mg/dL [facility] Interpretation and review of laboratory results Abnormal [facility] [facility] Glucose Fingerstickon Glucose [Mass/Vol] 292 mg/dL High 65 - 105 mg/dL [facility] Interpretation and review of laboratory results Abnormal [facility] POC Glucose Fingerstickon Glucose [Mass/Vol] 117 mg/dL High 65 - 105 mg/dL [facility] Interpretation and review of laboratory results Abnormal [facility] CBCon 08-23-2022 Erythrocyte distribution width (RBC) [Ratio] 16.8 % High 11.8-14.4 [facility] Comment on above: Performed By: #### M G, CBC, RENP #### [facility] [address] [place] [address] Aquaculturist: Daniel Perez MD Hematocrit (Bld) [Volume fraction] 37.9 % Normal 36.3-47.1 [facility] Comment on above: Performed By: #### M G, CBC, RENP #### [facility] [employer] [address] [place] [address] Aquaculturist: Daniel Perez MD Hemoglobin (Bld) [Mass/Vol] 11.7 g/dL Low 11.9-15.1 [facility] Comment on above: Performed By: #### M G, CBC, RENP #### [facility] [address] [place] [address] Aquaculturist: Daniel Perez MD MCH (RBC) [Entitic mass] 25.7 pg Normal 25.2-33.5 [facility] Comment on above: Performed By: #### M G, CBC, RENP #### [facility] [address] [place] [address] Aquaculturist: Daniel Perez MD MCHC (RBC) [Mass/Vol] 30.9 g/dL Normal 28.4-34.8 [facility] Comment on above: Performed By: #### M G, CBC, RENP #### [facility] [address] [place] [address] Aquaculturist: Daniel Perez MD MCV (RBC) [Entitic vol] 83.3 fL Normal 82.6-102.9 [facility] Comment on above: Performed By: #### Mark Tovar, CBC, RENP #### [address] [address] Aquaculturist: Daniel Perez MD NRBC Automated 0.0 per 100 WBC Normal 0.0 [facility] Comment on above: Performed By: #### Mark G, CBC, RENP #### [address] [address] Aquaculturist: Daniel Perez MD Platelet mean volume (Bld) [Entitic vol] 10.5 fL Normal 8.1-13.5 [facility] Comment on above: Performed By: #### Mark Tovar, CBC, RENP #### [address] [address] Aquaculturist: Daniel Perez MD Platelets (Bld) [#/Vol] 405 10*3/uL Normal 138-453 [facility] Comment on above: Performed By: #### Mark Tovar, CBC, RENP #### [address] [address] Aquaculturist: Dainel Perez MD RBC (Bld) [#/Vol] 4.55 10*6/uL Normal 3.95-5.11 [facility] Comment on above: Performed By: #### Mark Tovar, CBC, RENP #### [address] [address] Aquaculturist: Daniel Perez MD WBC (Bld) [#/Vol] 14.0 10*3/uL High 3.5-11.3 [facility] Comment on above: Performed By: #### Mark Tovar, CBC, RENP #### [address] [address] Aquaculturist: Daniel Perez MD Hematocrit (Bld) [Volume fraction] 37.9 % 36.3 - 47.1 % [facility] Hemoglobin (Bld) [Mass/Vol] 11.7 g/dL Low 11.9 - 15.1 g/dL [facility] Interpretation and review of laboratory results Abnormal [facility] MCH (RBC) [Entitic mass] 25.7 pg 25.2 - 33.5 pg [facility] MCHC (RBC) [Mass/Vol] 30.9 g/dL 28.4 - 34.8 g/dL [facility] MCV (RBC) [Entitic vol] 83.3 fL 82.6 - 102.9 fL [facility] NRBC Automated 0.0 0.0 per 100 WBC [facility] Platelet distribution width (Bld) [Ratio] 16.8 % High 11.8 - 14.4 % [facility] Platelet mean volume (Bld) [Entitic vol] 10.5 fL 8.1 - 13.5 fL [facility] Platelets (Bld) [#/Vol] 405 10*3/uL [facility] RBC (Bld) [#/Vol] 4.55 10*6/uL 3.95 - 5.11 m/uL [facility] WBC (Bld) [#/Vol] 14.0 10*3/uL High [facility] Magnesiumon 08-23-2022 Magnesium [Mass/Vol] 1.7 mg/dL Normal 1.6-2.6 [facility] Comment on above: Performed By: #### M G, CBC, RENP #### [facility] [address] [place] [address] Aquaculturist: Daniel Perez MD Magnesium [Mass/Vol] 1.7 mg/dL 1.6 - 2 .6 mg/dL [facility] No Panel Informationon 08-23 Soft tissue swelling within the right lower extremity. No definite acute osseous abnormality in right femur or right tibia/fibula. Although the right hip is not well visualized due to body habitus and overlying soft tissue. [facility] EXAMINATION: 2 XRAY VIEWS OF THE RIGHT FEMUR; 2 XRAY VIEWS OF THE RIGHT TIBIA AND FIBULA 08/21/2022 1:10 am COMPARISON: Right knee 08/30/2021 HISTORY: ORDERING SYSTEM PROVIDED HISTORY: right medial thigh pain, soft tissue infection TECHNOLOGIST PROVIDED HISTORY: right medial thigh pain, soft tissue infection Reason for Exam: leg redness,pain; ORDERING SYSTEM PROVIDED HISTORY: Medial calf pain, soft tissue infection vs edema TECHNOLOGIST PROVIDED HISTORY: Medial calf pain, soft tissue infection vs edema Reason for Exam: leg redness,pain behind calf FINDINGS: Right femur: Right hip is suboptimally visualized due to body habitus and overlying soft tissue. No definite acute fracture or dislocation. Soft tissues are otherwise unremarkable. Right tibia/fibula: Soft tissue swelling. Degenerative changes of the right knee. No acute fracture or dislocation. Joint spaces and alignment otherwise maintained. [facility] Melisa Vásquez MD - 08/23/2022 EXAMINATION: 2 XRAY VIEWS OF THE RIGHT FEMUR; 2 XRAY VIEWS OF THE RIGHT TIBIA AND FIBULA 08/21/2022 1:10 am COMPARISON: Right knee 08/30/2021 HISTORY: ORDERING SYSTEM PROVIDED HISTORY: right medial thigh pain, soft tissue infection TECHNOLOGIST PROVIDED HISTORY: right medial thigh pain, soft tissue infection Reason for Exam: leg redness,pain; ORDERING SYSTEM PROVIDED HISTORY: Medial calf pain, soft tissue infection vs edema TECHNOLOGIST PROVIDED HISTORY: Medial calf pain, soft tissue infection vs edema Reason for Exam: leg redness,pain behind calf FINDINGS: Right femur: Right hip is suboptimally visualized due to body habitus and overlying soft tissue. No definite acute fracture or dislocation. Soft tissues are otherwise unremarkable. Right tibia/fibula: Soft tissue swelling. Degenerative changes of the right knee. No acute fracture or dislocation. Joint spaces and alignment otherwise maintained. IMPRESSION: Soft tissue swelling within the right lower extremity. No definite acute osseous abnormality in right femur or right tibia/fibula. Although the right hip is not well visualized due to body habitus and overlying soft tissue. [employer] Work Phone: [employer] No Panel InformationOrdered By: Melisa Vásquez on 08-23-2022 [facility] Work Phone: POC Glucose Fingerstickon Glucose [Mass/Vol] 237 mg/dL High 65 - 105 mg/dL [facility] Interpretation and review of laboratory results Abnormal [facility] Glucose [Mass/Vol] 194 mg/dL High 65 - 105 mg/dL [facility] Interpretation and review of laboratory results Abnormal [facility] Renal Function Panelon 08-23 Albumin [Mass/Vol] 3.5 g/dL Normal 3.5-5.2 [facility] Comment on above: Performed By: #### M G, CBC, RENP #### [facility] [employer] [address] [place] [address] Aquaculturist: Daniel Perez MD Anion gap [Moles/Vol] 11 mmol/L Normal 9-17 [facility] Comment on above: Performed By: #### M G, CBC, RENP #### [facility] [address] [place] [address] Aquaculturist: Daniel Perez MD Calcium [Mass/Vol] 9.0 mg/dL Normal 8.6-10.4 [facility] Comment on above: Performed By: #### M G, CBC, RENP #### [facility] [address] [place] [address] Aquaculturist: Daniel Perez MD Chloride [Moles/Vol] 96 mmol/L Low 98-107 [facility] Comment on above: Performed By: #### M G, CBC, RENP #### [facility] [address] [place] [address] Aquaculturist: Daniel Perez MD CO2 [Moles/Vol] 26 mmol/L Normal 20-31 [facility] Comment on above: Performed By: #### M G, CBC, RENP #### [facility] [address] [place] [address] Aquaculturist: Daniel Perez MD Creatinine [Mass/Vol] 0.85 mg/dL Normal 0.50-0.90 [facility] Comment on above: Performed By: #### M G, CBC, RENP #### [facility] [address] [place] [address] Aquaculturist: Daniel Perez MD GFR/1.73 sq M.predicted among non-blacks MDRD (S/P/Bld) [Vol rate/Area] mL/min/{1.73_m2} Normal >60 [facility] Comment on above: Result Comment: These results are not intended for use in patients <18 years of age. eGFR results are calculated without a race factor using the 2020 CKD-EPI equation. Careful clinical correlation is recommended, particularly when comparing to results calculated using previous equations. The CKD-EPI equation is less accurate in patients with extremes of muscle mass, extra-renal metabolism of creatine, excessive creatine ingestion, or following therapy that affects renal tubular secretion. Performed By: #### M Guy, CBC, RENP #### [employer] [address] [place] [address] Aquaculturist: Daniel Perez MD Glucose [Mass/Vol] 190 mg/dL High 70-99 [facility] Comment on above: Performed By: #### M Guy, CBC, RENP #### [facility] [address] [place] [address] Aquaculturist: Daniel Perez MD Phosphorus, Inorg. 3.9 mg/dL Normal 2.6-4.5 [facility] Comment on above: Performed By: #### M G, CBC, RENP #### [facility] [address] [place] [address] Aquaculturist: Daniel Perez MD Potassium [Moles/Vol] 4.3 mmol/L Normal 3.7-5.3 [facility] Comment on above: Performed By: #### M G, CBC, RENP #### [employer] [facility] [place], [place] [phone] Aquaculturist: Daniel Perez MD Sodium [Moles/Vol] 133 mmol/L Low 135-144 [facility] Comment on above: Performed By: #### M G, CBC, RENP #### [facility] [address] [place], [place] [phone] Aquaculturist: Daniel Perez MD Urea nitrogen [Mass/Vol] 23 mg/dL High 6-20 [facility] Comment on above: Performed By: #### M G, CBC, RENP #### [facility] [address] [place], [place] [phone] Aquaculturist: Daniel Perez MD Albumin [Mass/Vol] 3.5 g/dL 3.5 - 5.2 g/dL [facility] Anion gap [Moles/Vol] 11 mmol/L 9 - 17 mmol/L [facility] Calcium [Mass/Vol] 9.0 mg/dL 8.6 - 10. 4 mg/dL [facility] Chloride [Moles/Vol] 96 mmol/L Low 98 - 10 7 mmol/L [facility] CO2 [Moles/Vol] 26 mmol/L 20 - 31 mmol/L [facility] Creatinine [Mass/Vol] 0.85 mg/dL 0.50 - 0.90 mg/dL [facility] GFR/1.73 sq M.predicted MDRD (S/P/Bld) [Vol rate/Area] - PINF [facility] Comment on above: These results are not intended for use in patients <18 years of age. eGFR results are calculated without a race factor using the 2020 CKD-EPI equation. Careful clinical correlation is recommended, particularly when comparing to results calculated using previous equations. The CKD-EPI equation is less accurate in patients with extremes of muscle mass, extra-renal metabolism of creatine, excessive creatine ingestion, or following therapy that affects renal tubular secretion. Glucose [Mass/Vol] 190 mg/dL High 70 - 99 mg/dL [facility] Interpretation and review of laboratory results Abnormal [facility] Phosphate [Mass/Vol] 3.9 mg/dL 2.6 - 4 .5 mg/dL [facility] Potassium [Moles/Vol] 4.3 mmol/L 3.7 - 5.3 mmol/L [facility] Sodium [Moles/Vol] 133 mmol/L Low 135 - 144 mmol/L [facility] Urea nitrogen [Mass/Vol] 23 mg/dL High 6 - 20 mg/dL [facility] XR FEMUR RIGHT (MIN 2 VIEWS) on 08-23-2022 XR FEMUR RIGHT (MIN 2 VIEWS) EXAMINATION: 2 XRAY VIEWS OF THE RIGHT FEMUR; 2 XRAY VIEWS OF THE RIGHT TIBIA AND FIBULA 08/21/2022 1:10 am COMPARISON: Right knee 08/30/2021 HISTORY: ORDERING SYSTEM PROVIDED HISTORY: right medial thigh pain, soft tissue infection TECHNOLOGIST PROVIDED HISTORY: right medial thigh pain, soft tissue infection Reason for Exam: leg redness,pain; ORDERING SYSTEM PROVIDED HISTORY: Medial calf pain, soft tissue infection vs edema TECHNOLOGIST PROVIDED HISTORY: Medial calf pain, soft tissue infection vs edema Reason for Exam: leg redness,pain behind calf FINDINGS: Right femur: Right hip is suboptimally visualized due to body habitus and overlying soft tissue. No definite acute fracture or dislocation. Soft tissues are otherwise unremarkable. Right tibia/fibula: Soft tissue swelling. Degenerative changes of the right knee. No acute fracture or dislocation. Joint spaces and alignment otherwise maintained. IMPRESSION: Soft tissue swelling within the right lower extremity. No definite acute osseous abnormality in right femur or right tibia/fibula. Although the right hip is not well visualized due to body habitus and overlying soft tissue. Interpreted by: Melisa Vásquez MD Signed by: Melisa Vásquez MD 08/23/22 Final result Normal [facility] XR TIBIA FIBULA RIGHT (2 VIE WS)on 08-23-2022 XR TIBIA FIBULA RIGHT (2 VIEWS) EXAMINATION: 2 XRAY VIEWS OF THE RIGHT FEMUR; 2 XRAY VIEWS OF THE RIGHT TIBIA AND FIBULA 08/21/2022 1:10 am COMPARISON: Right knee 08/30/2021 HISTORY: ORDERING SYSTEM PROVIDED HISTORY: right medial thigh pain, soft tissue infection TECHNOLOGIST PROVIDED HISTORY: right medial thigh pain, soft tissue infection Reason for Exam: leg redness,pain; ORDERING SYSTEM PROVIDED HISTORY: Medial calf pain, soft tissue infection vs edema TECHNOLOGIST PROVIDED HISTORY: Medial calf pain, soft tissue infection vs edema Reason for Exam: leg redness,pain behind calf FINDINGS: Right femur: Right hip is suboptimally visualized due to body habitus and overlying soft tissue. No definite acute fracture or dislocation. Soft tissues are otherwise unremarkable. Right tibia/fibula: Soft tissue swelling. Degenerative changes of the right knee. No acute fracture or dislocation. Joint spaces and alignment otherwise maintained. IMPRESSION: Soft tissue swelling within the right lower extremity. No definite acute osseous abnormality in right femur or right tibia/fibula. Although the right hip is not well visualized due to body habitus and overlying soft tissue. Interpreted by: Melisa Vásquez MD Signed by: Melisa Vásquez MD 08/23/22 Final result Normal [facility] Basic Metab w/rfx MGon 08-22 Anion gap [Moles/Vol] 12 mmol/L Normal 9-17 [facility] Comment on above: Performed By: #### C RP, BMPX #### [address] [address] Aquaculturist: Daniel Perez MD Calcium [Mass/Vol] 9.1 mg/dL Normal 8.6-10.4 [facility] Comment on above: Performed By: #### C RP, BMPX #### [address] [address] Aquaculturist: Daniel Perez MD Chloride [Moles/Vol] 99 mmol/L Normal 98-107 [facility] Comment on above: Performed By: #### C RP, BMPX #### [facility] [employer] [address] [place] [address] Aquaculturist: Daniel Perez MD CO2 [Moles/Vol] 26 mmol/L Normal 20-31 [facility] Comment on above: Performed By: #### C RP, BMPX #### [facility] [employer] [address] [place] [address] Aquaculturist: Daniel Perez MD Creatinine [Mass/Vol] 0.94 mg/dL High 0.50-0.90 [facility] Comment on above: Performed By: #### C RP, BMPX #### [facility] [employer] [address] [place] [address] Aquaculturist: Daniel Perez MD GFR/1.73 sq M.predicted among non-blacks MDRD (S/P/Bld) [Vol rate/Area] mL/min/{1.73_m2} Normal >60 [facility] Comment on above: Result Comment: These results are not intended for use in patients <18 years of age. eGFR results are calculated without a race factor using the 2020 CKD-EPI equation. Careful clinical correlation is recommended, particularly when comparing to results calculated using previous equations. The CKD-EPI equation is less accurate in patients with extremes of muscle mass, extra-renal metabolism of creatine, excessive creatine ingestion, or following therapy that affects renal tubular secretion. Performed By: #### C RP, BMPX #### [facility] [employer] [address] [place] [address] Aquaculturist: Daniel Perez MD Glucose [Mass/Vol] 174 mg/dL High 70-99 [facility] Comment on above: Performed By: #### C RP, BMPX #### [facility] [employer] [address] [place] [address] Aquaculturist: Daniel Perez MD Potassium [Moles/Vol] 4.2 mmol/L Normal 3.7-5.3 [facility] Comment on above: Performed By: #### C RP, BMPX #### [facility] [address] [place] [address] Aquaculturist: Daniel Perez MD Sodium [Moles/Vol] 137 mmol/L Normal 135-144 [facility] Comment on above: Performed By: #### C RP, BMPX #### [facility] [employer] [address] [place] [address] Aquaculturist: Daniel Perez MD Urea nitrogen [Mass/Vol] 24 mg/dL High 6-20 [facility] Comment on above: Performed By: #### C RP, BMPX #### [facility] [address] [place] [address] Aquaculturist: Daniel Perez MD Basic Metabolic Panel w/ Ref el to MGon 08-22-2022 Anion gap [Moles/Vol] 12 mmol/L 9 - 17 mmol/L [facility] Calcium [Mass/Vol] 9.1 mg/dL 8.6 - 10. 4 mg/dL [facility] [employer] [facility] Chloride [Moles/Vol] 99 mmol/L 98 - 10 7 mmol/L [facility] CO2 [Moles/Vol] 26 mmol/L 20 - 31 mmol/L [facility] Pro Breath MD Creatinine [Mass/Vol] 0.94 mg/dL High 0.50 - 0.90 mg/dL [facility] GFR/1.73 sq M.predicted MDRD (S/P/Bld) [Vol rate/Area] - PINF [facility] Comment on above: These results are not intended for use in patients <18 years of age. eGFR results are calculated without a race factor using the 2020 CKD-EPI equation. Careful clinical correlation is recommended, particularly when comparing to results calculated using previous equations. The CKD-EPI equation is less accurate in patients with extremes of muscle mass, extra-renal metabolism of creatine, excessive creatine ingestion, or following therapy that affects renal tubular secretion. Glucose [Mass/Vol] 174 mg/dL High 70 - 99 mg/dL [facility] Interpretation and review of laboratory results Abnormal [facility] Potassium [Moles/Vol] 4.2 mmol/L 3.7 - 5.3 mmol/L [facility] Pro Breath MD Sodium [Moles/Vol] 137 mmol/L 135 - 144 mmol/L [facility] Urea nitrogen [Mass/Vol] 24 mg/dL High 6 - 20 mg/dL [facility] C-Reactive Proteinon 023 CRP [Mass/Vol] 47.2 mg/L High 0.0-5.0 [facility] Comment on above: Performed By: #### C RP, BMPX #### [facility] [address] [place] [id number] Aquaculturist: Daniel Perez MD CRP High sensitivity method [Mass/Vol] 47.2 mg/L High 0.0 - 5.0 mg/L [facility] Interpretation and review of laboratory results Abnormal [facility] POC Glucose Fingerstickon Glucose [Mass/Vol] 190 mg/dL High 65 - 105 mg/dL [facility] Interpretation and review of laboratory results Abnormal [facility] Glucose [Mass/Vol] 207 mg/dL High 65 - 105 mg/dL [facility] Interpretation and review of laboratory results Abnormal [facility] Glucose [Mass/Vol] 174 mg/dL High 65 - 105 mg/dL [facility] Interpretation and review of laboratory results Abnormal [facility] VL DUP LOWER EXTREMITY VENOU S BILATERALon 08-22-2022 Frederic Goff MD - 08/22/2022 [facility] Vascular Lower Extremities DVT Study Procedure Patient Name NATASHA Date of Study 08/21/2022 [facility] Date of 1965 Gender Female Age 57 year(s) Race Room Number 0321 Height: 62 inch, 157.48 cm Corporate ID [id number] Weight: 257 pounds, 116.6 kg # Patient Acct [id number] BSA: 2.13 m^2 BMI: 47.01 kg/m^2 # MR # [id number] Clinical Research Physician Phillip Hampton Emiliano Interpreting Physician Frederic Goff Referring Referring Physician Narendra Zendejas MD Nurse Practitioner Procedure Type of Study: Veins: Lower Extremities DVT Study, Venous Scan Lower Bilateral. Indications for Study:Increased pain and swelling. Patient Status:In Patient. Technical Quality:Limited visualization. Limitation reason:deep vessels, edema and body habitus, patient resisting compression. - Critical Result:Ciarra SALDANA notified at 10:38 a.m. from the vascular lab. . Conclusions Summary Right: Great saphenous acute thrombosis extending into the common femoral without occlusion of the common femoral. Recommend anticoagulation. Left: No evidence of deep or superficial venous thrombosis. Signature Findings: Right Impression: Left Impression: The right common femoral vein is The common femoral, femoral, partially compressible with homogenous popliteal and tibial veins echoes. demonstrate normal compressibility The distal external iliac vein has and augmentation. good color flow and doppler signals. Normal compressibility of the great The femoral, popliteal and tibial saphenous vein. veins demonstrate normal Normal compressibility of the small compressibility and augmentation. saphenous vein. The saphenofemoral junction and proximal through mid greater saphenous vein is non-compressible with absent color flow. Normal compressibility of the small saphenous vein. Risk Factors History + -------+ +----- --- + !Diagnosis !Date !Comments ! + -------+ +----- --- + !CHF ! ! ! + -------+ +----- --- + !Other ! !cerebral palsy ! + -------+ +----- --- + !Previous Scan !08/30/2021!venous-wnl ! + -------+ +----- --- + - The patient's risk factor(s) include: obesity. Velocities are measured in cm/s ; Diameters are measured in cm Right Lower Extremities DVT Study Measurements Right 2D Measurements + + + +------- --- + !Location !Visualized!Compressibil ity!Thrombosis! + + + +------- --- + !Common Femoral !Yes !Partial !Homogenous! + + + +------- --- + !Prox Femoral !Yes !Yes !None ! + + + +------- --- + !Mid Femoral !Yes !Yes !None ! + + + +------- --- + !Dist Femoral !Yes !Yes !None ! + + + +------- --- + !Deep Femoral !No ! ! ! + + + +------- --- + !Popliteal !Yes !Yes !None ! + + + +------- --- + !Sapheno Femoral Junction !Yes !No !Homogenous! + + + +------- --- + !PTV !Yes !Yes !None ! + + + +------- --- + !Peroneal !No ! ! ! + + + +------- --- + !Gastroc !Yes !Yes !None ! + + + +------- --- + !GSV Thigh !Yes !No !Homogenous! + + + +------- --- + !GSV Knee !Yes !No !Homogenous! + + + +------- --- + !GSV Ankle !Yes !Yes !None ! + + + +------- --- + !SSV !Yes !Yes !None ! + + + (more content not included)... [employer] Work Phone: VL DUP LOWER EXTREMITY VENOU S BILATERALOrdered By: Frederic Goff on 08-22-2022 [employer] Work Phone: BMPon 08-21-2022 Anion gap [Moles/Vol] 12 mmol/L 9 - 17 mmol/L [employer] Calcium [Mass/Vol] 9.3 mg/dL 8.6 - 10. 4 mg/dL [employer] Chloride [Moles/Vol] 96 mmol/L Low 98 - 10 7 mmol/L [facility] CO2 [Moles/Vol] 24 mmol/L 20 - 31 mmol/L [facility] Creatinine [Mass/Vol] 0.7 mg/dL 0.50 - 0.90 mg/dL [facility] GFR/1.73 sq M.predicted MDRD (S/P/Bld) [Vol rate/Area] - PINF [facility] Comment on above: These results are not intended for use in patients <18 years of age. eGFR results are calculated without a race factor using the 2020 CKD-EPI equation. Careful clinical correlation is recommended, particularly when comparing to results calculated using previous equations. The CKD-EPI equation is less accurate in patients with extremes of muscle mass, extra-renal metabolism of creatine, excessive creatine ingestion, or following therapy that affects renal tubular secretion. Glucose [Mass/Vol] 146 mg/dL High 70 - 99 mg/dL [facility] Interpretation and review of laboratory results Abnormal [facility] Potassium [Moles/Vol] 4.1 mmol/L 3.7 - 5.3 mmol/L [facility] Sodium [Moles/Vol] 132 mmol/L Low 135 - 144 mmol/L [facility] Urea nitrogen [Mass/Vol] 23 mg/dL High 6 - 20 mg/dL [facility] Basic Metab w/rfx MGon 08-21 Anion gap [Moles/Vol] 9 mmol/L Normal 9-17 [facility] Comment on above: Performed By: #### B MPX #### [facility] [employer] [address] [place] [address] Aquaculturist: Daniel Perez MD Calcium [Mass/Vol] 8.6 mg/dL Normal 8.6-10.4 [facility] Comment on above: Performed By: #### B MPX #### [facility] [employer] [employer] [address] [place] [address] Aquaculturist: Daniel Perez MD Chloride [Moles/Vol] 100 mmol/L Normal 98-107 [facility] Comment on above: Performed By: #### B MPX #### [facility] [employer] [address] [place] [address] Aquaculturist: Daniel Perez MD CO2 [Moles/Vol] 28 mmol/L Normal 20-31 [facility] Comment on above: Performed By: #### B MPX #### [facility] [employer] [address] [place] [address] Aquaculturist: Daniel Perez MD Creatinine [Mass/Vol] 0.71 mg/dL Normal 0.50-0.90 [facility] Comment on above: Performed By: #### B MPX #### [facility] [employer] [address] [place] [address] Aquaculturist: Daniel Perez MD GFR/1.73 sq M.predicted among non-blacks MDRD (S/P/Bld) [Vol rate/Area] mL/min/{1.73_m2} Normal >60 [facility] Comment on above: Result Comment: These results are not intended for use in patients <18 years of age. eGFR results are calculated without a race factor using the 2020 CKD-EPI equation. Careful clinical correlation is recommended, particularly when comparing to results calculated using previous equations. The CKD-EPI equation is less accurate in patients with extremes of muscle mass, extra-renal metabolism of creatine, excessive creatine ingestion, or following therapy that affects renal tubular secretion. Performed By: #### B MPX #### [facility] [employer] [address] [place] [address] Aquaculturist: Daniel Perez MD Glucose [Mass/Vol] 153 mg/dL High 70-99 [facility] Comment on above: Performed By: #### B MPX #### [facility] [employer] [address] [place] [address] Aquaculturist: Daniel Perez MD Potassium [Moles/Vol] 3.8 mmol/L Normal 3.7-5.3 [facility] Comment on above: Performed By: #### B MPX #### [facility] [employer] [address] [place] [address] Aquaculturist: Daniel Perez MD Sodium [Moles/Vol] 137 mmol/L Normal 135-144 [facility] Comment on above: Performed By: #### B MPX #### [employer] [facility] [place] [address] Aquaculturist: Daniel Perez MD Urea nitrogen [Mass/Vol] 22 mg/dL High 6-20 [facility] Comment on above: Performed By: #### B MPX #### [employer] [address] [place] [address] Aquaculturist: Daniel Perez MD Basic Metabolic Panel w/ Ref el to MGon 08-21-2022 Anion gap [Moles/Vol] 9 mmol/L 9 - 17 mmol/L [facility] [employer] Calcium [Mass/Vol] 8.6 mg/dL 8.6 - 10. 4 mg/dL [facility] [employer] Chloride [Moles/Vol] 100 mmol/L 98 - 10 7 mmol/L [facility] [employer] CO2 [Moles/Vol] 28 mmol/L 20 - 31 mmol/L [facility] [employer] Creatinine [Mass/Vol] 0.71 mg/dL 0.50 - 0.90 mg/dL [facility] [employer] GFR/1.73 sq M.predicted MDRD (S/P/Bld) [Vol rate/Area] - PINF [facility] Comment on above: These results are not intended for use in patients <18 years of age. eGFR results are calculated without a race factor using the 2020 CKD-EPI equation. Careful clinical correlation is recommended, particularly when comparing to results calculated using previous equations. The CKD-EPI equation is less accurate in patients with extremes of muscle mass, extra-renal metabolism of creatine, excessive creatine ingestion, or following therapy that affects renal tubular secretion. Glucose [Mass/Vol] 153 mg/dL High 70 - 99 mg/dL [facility] Interpretation and review of laboratory results Abnormal [facility] [employer] Potassium [Moles/Vol] 3.8 mmol/L 3.7 - 5.3 mmol/L [facility] Sodium [Moles/Vol] 137 mmol/L 135 - 144 mmol/L [facility] Urea nitrogen [Mass/Vol] 22 mg/dL High 6 - 20 mg/dL [facility] Basic Metabolic Profon 08-21 Anion gap [Moles/Vol] 12 mmol/L Normal 9-17 [facility] Comment on above: Performed By: #### M G, CBC, RENP #### [facility] [employer] [address] [place] [address] Aquaculturist: Daniel Perez MD Calcium [Mass/Vol] 9.3 mg/dL Normal 8.6-10.4 [facility] Comment on above: Performed By: #### M G, CBC, RENP #### [facility] [employer] [address] [place] [address] Aquaculturist: Daniel Perez MD Chloride [Moles/Vol] 96 mmol/L Low 98-107 [facility] Comment on above: Performed By: #### M G, CBC, RENP #### [facility] [employer] [address] [place] [address] Aquaculturist: Daniel Perez MD CO2 [Moles/Vol] 24 mmol/L Normal 20-31 [facility] Comment on above: Performed By: #### M G, CBC, RENP #### [facility] [employer] [address] [place] [address] Aquaculturist: Daniel Perez MD Creatinine [Mass/Vol] 0.70 mg/dL Normal 0.50-0.90 [facility] Comment on above: Performed By: #### M G, CBC, RENP #### [facility] [employer] [address] [place] [address] Aquaculturist: Daniel Perez MD GFR/1.73 sq M.predicted among non-blacks MDRD (S/P/Bld) [Vol rate/Area] mL/min/{1.73_m2} Normal >60 [facility] Comment on above: Result Comment: These results are not intended for use in patients <18 years of age. eGFR results are calculated without a race factor using the 2020 CKD-EPI equation. Careful clinical correlation is recommended, particularly when comparing to results calculated using previous equations. The CKD-EPI equation is less accurate in patients with extremes of muscle mass, extra-renal metabolism of creatine, excessive creatine ingestion, or following therapy that affects renal tubular secretion. Performed By: #### M Guy, CBC, RENP #### [employer] [address] [place] [address] Aquaculturist: Daniel Perez MD Glucose [Mass/Vol] 146 mg/dL High 70-99 [facility] Comment on above: Performed By: #### M Guy, CBC, RENP #### [facility] [employer] [address] [place] [address] Aquaculturist: Daniel Perez MD Potassium [Moles/Vol] 4.1 mmol/L Normal 3.7-5.3 [facility] Comment on above: Performed By: #### Mark Tovar, CBC, RENP #### [employer] [address] [place] [address] Aquaculturist: Daniel Perez MD Sodium [Moles/Vol] 132 mmol/L Low 135-144 [facility] Comment on above: Performed By: #### Mark Tovar CBC, RENP #### [facility] [employer] [address] [place] [address] Aquaculturist: Daniel Perez MD Urea nitrogen [Mass/Vol] 23 mg/dL High 6-20 [facility] Comment on above: Performed By: #### Mark Tovar, CBC, RENP #### [employer] [address] [place] [address] Aquaculturist: Daniel Perez MD CBC with Auto Differentialon 08-21-2022 Absolute Eos # 0.31 [facility] Absolute Immature Granulocyte 0.06 [facility] [employer] Absolute Lymph # 1.78 [facility] [employer] Absolute [place] # 0.44 [facility] [employer] Basophils (Bld) [#/Vol] 0.04 10*3/uL [facility] [employer] Basophils/100 WBC (Bld) 0 % 0 - 2 % B ON [facility] Eosinophils/100 WBC (Bld) 3 % 1 - 4 % [facility] Hematocrit (Bld) [Volume fraction] 43.1 % 36.3 - 47.1 % [facility] Hemoglobin (Bld) [Mass/Vol] 13.0 g/dL 11.9 - 15.1 g/dL [facility] Immature granulocytes/100 WBC (Bld) 1 % High 0 [facility] Interpretation and review of laboratory results Abnormal [facility] Lymphocytes/100 WBC (Bld) 15 % Low 24 - 43 % [facility] MCH (RBC) [Entitic mass] 25.0 pg Low 25.2 - 33.5 pg [facility] MCHC (RBC) [Mass/Vol] 30.2 g/dL 28.4 - 34.8 g/dL [facility] MCV (RBC) [Entitic vol] 82.9 fL 82.6 - 102.9 fL [facility] Monocytes/100 WBC (Bld) 4 % 3 - 12 % B ON [facility] NRBC Automated 0.0 0.0 per 100 WBC [facility] Platelet distribution width (Bld) [Ratio] 16.3 % High 11.8 - 14.4 % [facility] Platelet mean volume (Bld) [Entitic vol] 9.6 fL 8.1 - 13.5 fL [facility] Platelets (Bld) [#/Vol] 274 10*3/uL [facility] RBC (Bld) [#/Vol] 5.20 10*6/uL High 3.95 - 5.11 m/uL [facility] RBC (Bld) [#/Vol] ANISOCYTOSIS PRESENT [facility] Segmented neutrophils/100 WBC (Bld) 77 % High 36 - 65 % [facility] Segs Absolute 9.46 High [facility] WBC (Bld) [#/Vol] 12.1 10*3/uL High [facility] with Diffon 08-21-2022 Abs. Basophil 0.04 k/uL Normal 0.00-0.20 [facility] Comment on above: Performed By: #### M Guy, CBC, RENP #### [address] [address] Aquaculturist: Daniel Perez MD Abs.Imm.Granulocyte 0.06 k/uL Normal 0.00-0.30 [facility] Comment on above: Performed By: #### Mark G, CBC, RENP #### [place] [address] Aquaculturist: Daniel Perez MD Abs.Neutrophil (Seg) 9.46 k/uL High 1.50-8.10 [facility] Comment on above: Performed By: #### Mark Tovar, CBC, RENP #### [address] [address] Aquaculturist: Daniel Perez MD Basophils/100 WBC (Bld) 0 % Normal 0-2 [facility] Comment on above: Performed By: #### Mark Tovar, CBC, RENP #### [place] [address] Aquaculturist: Daniel Perez MD Eosinophils (Bld) [#/Vol] 0.31 10*3/uL Normal 0.00-0.44 [facility] Comment on above: Performed By: #### Mark Tovar, CBC, RENP #### [address] [address] Aquaculturist: Daniel Perez MD Eosinophils/100 WBC (Bld) 3 % Normal 1-4 [facility] Comment on above: Performed By: #### Mark G, CBC, RENP #### [address] [address] Aquaculturist: Daniel Perez MD Erythrocyte distribution width (RBC) [Ratio] 16.3 % High 11.8-14.4 [facility] Comment on above: Performed By: #### Mark G, CBC, RENP #### [facility] [employer] [address] [place] [address] Aquaculturist: Daniel Perez MD Hematocrit (Bld) [Volume fraction] 43.1 % Normal 36.3-47.1 [facility] Comment on above: Performed By: #### M G, CBC, RENP #### [facility] [employer] [address] [place] [address] Aquaculturist: Daniel Perez MD Hemoglobin (Bld) [Mass/Vol] 13.0 g/dL Normal 11.9-15.1 [facility] Comment on above: Performed By: #### M G, CBC, RENP #### [facility] [employer] [address] [place] [address] Aquaculturist: Daniel Perez MD Immature granulocytes/100 WBC (Bld) 1 % High 0 [facility] Comment on above: Performed By: #### M G, CBC, RENP #### [facility] [employer] [address] [place] [address] Aquaculturist: Daniel Perez MD Lymphocytes (Bld) [#/Vol] 1.78 10*3/uL Normal 1.10-3.70 [facility] Comment on above: Performed By: #### M G, CBC, RENP #### [facility] [employer] [address] [place] [address] Aquaculturist: Daniel Perez MD Lymphocytes/100 WBC (Bld) 15 % Low 24-43 [facility] Comment on above: Performed By: #### M G, CBC, RENP #### [facility] [employer] [address] [place] [address] Aquaculturist: Daniel Perez MD MCH (RBC) [Entitic mass] 25.0 pg Low 25.2-33.5 [facility] Comment on above: Performed By: #### M G, CBC, RENP #### [address] [address] Aquaculturist: Daniel Perez MD MCHC (RBC) [Mass/Vol] 30.2 g/dL Normal 28.4-34.8 [facility] Comment on above: Performed By: #### M G, CBC, RENP #### [address] [address] Aquaculturist: Daniel Perez MD MCV (RBC) [Entitic vol] 82.9 fL Normal 82.6-102.9 [facility] Comment on above: Performed By: #### M G, CBC, RENP #### [address] [address] Aquaculturist: Daniel Perez MD Monocytes (Bld) [#/Vol] 0.44 10*3/uL Normal 0.10-1.20 [facility] Comment on above: Performed By: #### M G, CBC, RENP #### [address] [address] Aquaculturist: Daniel Perez MD Monocytes/100 WBC (Bld) 4 % Normal 3-12 [facility] Comment on above: Performed By: #### M G, CBC, RENP #### [address] [address] Aquaculturist: Daniel Perez MD Neutrophil (Seg) 77 % High 36-65 [facility] Comment on above: Performed By: #### M G, CBC, RENP #### [address] [address] Aquaculturist: Daniel Perez MD NRBC Automated 0.0 per 100 WBC Normal 0.0 [facility] Comment on above: Performed By: #### M G, CBC, RENP #### [address] [address] Aquaculturist: Daniel Perez MD Platelet mean volume (Bld) [Entitic vol] 9.6 fL Normal 8.1-13.5 [facility] Comment on above: Performed By: #### M G, CBC, RENP #### [address] [address] Aquaculturist: Daniel Perez MD Platelets (Bld) [#/Vol] 274 10*3/uL Normal 138-453 [facility] Comment on above: Performed By: #### M G, CBC, RENP #### [address] [address] Aquaculturist: Daniel Perez MD RBC (Bld) [#/Vol] 5.20 10*6/uL High 3.95-5.11 [facility] Comment on above: Performed By: #### M G, CBC, RENP #### [address] [address] Aquaculturist: Daniel Perez MD RBC morphology finding Nom (Bld) ANISOCYTOSIS PRESENT Normal [facility] Comment on above: Performed By: #### M G, CBC, RENP #### [facility] [employer] [address] [place] [address] Aquaculturist: Daniel Perez MD WBC (Bld) [#/Vol] 12.1 10*3/uL High 3.5-11.3 [facility] Comment on above: Performed By: #### M G, CBC, RENP #### [address] [address] Aquaculturist: Daniel Perez MD D-Dimer Teston 08-21-2022 D-Dimer Test 2.70 mg/L FEU Normal [facility] Comment on above: Result Comment: When combined with a low clinical probability, a D dimer value of <0.50 mg/L FEU is considered negative for DVT and PE (negative predictive value of 98%, sensitivity of 97%). If this test is not being used to help rule out DVT and PE, then the following reference range should be utilized: 0.00 - 1.02 mg/L FEU. The [employer] D-Dimer assay is intended for use as an aid in the diagnosis of venous thromboembolism (DVT and PE) and the results should be interpreted in conjunction with the patient's medical history, clinical presentation, and other findings. Elevated levels of D-dimer activity can be seen in any state of coagulation activation and is not recommended in patients with therapeutic dose anticoagulant therapy for >24 hours, fibrinolytic therapy within the previous 7 days, trauma or surgery within the previous 4 weeks, disseminated malignancies, aortic aneurysm, sepsis, severe infections, pneumonia, severe skin infections, liver cirrhosis, advanced age, coronary disease, diabetes, and . A very low percentage of patients with DVT may yield D-dimer results below the cutoff of 0.5 mg/L FEU. This is known to be more prevalent in patients with distal DVT. Performed By: #### M G, CBC, RENP #### [employer] [facility] [place] [address] Aquaculturist: Daniel Perez MD D-Dimer, Quantitativeon 08-08 Fibrin D-dimer FEU IA (Bld) [Mass/Vol] 2.70 ug/mL mg/L FEU [facility] Comment on above: When combined with a low clinical probability, a D dimer value of <0.50 mg/L FEU is considered negative for DVT and PE (negative predictive value of 98%, sensitivity of 97%). If this test is not being used to help rule out DVT and PE, then the following reference range should be utilized: 0.00 - 1.02 mg/L FEU. The [employer] D-Dimer assay is intended for use as an aid in the diagnosis of venous thromboembolism (DVT and PE) and the results should be interpreted in conjunction with the patient's medical history, clinical presentation, and other findings. Elevated levels of D-dimer activity can be seen in any state of coagulation activation and is not recommended in patients with therapeutic dose anticoagulant therapy for >24 hours, fibrinolytic therapy within the previous 7 days, trauma or surgery within the previous 4 weeks, disseminated malignancies, aortic aneurysm, sepsis, severe infections, pneumonia, severe skin infections, liver cirrhosis, advanced age, coronary disease, diabetes, and . A very low percentage of patients with DVT may yield D-dimer results below the cutoff of 0.5 mg/L FEU. This is known to be more prevalent in patients with distal DVT. [facility] [employer] Lactic Acidon 08-21-2022 Lactic Acid,Whole Bl 1.0 mmol/L Normal 0.7-2.1 [facility] Comment on above: Performed By: #### L ACTIC #### [facility] [address] [place] [address] Aquaculturist: Daniel Perez MD Lactic Acid, Whole Blood 1.0 mmol/L 0.7 - 2.1 mmol/L [facility] No Panel Informationon 08-21 Radiology Study observation (narrative) [employer] Work Phone: POC Glucose Fingerstickon Glucose [Mass/Vol] 238 mg/dL High 65 - 105 mg/dL [facility] Interpretation and review of laboratory results Abnormal [facility] [employer] [facility] Glucose [Mass/Vol] 213 mg/dL High 65 - 105 mg/dL [facility] Interpretation and review of laboratory results Abnormal [facility] Glucose [Mass/Vol] 169 mg/dL High 65 - 105 mg/dL [facility] Interpretation and review of laboratory results Abnormal [facility] Glucose [Mass/Vol] 168 mg/dL High 65 - 105 mg/dL [facility] Interpretation and review of laboratory results Abnormal [facility] VL DUP LOWER EXTREMITY VENOU S BILATERALon 08-21-2022 Radiology Study observation (narrative) [employer] Work Phone: Cult,Urineon 03-29-2022 Cult,Urine Specimen Description .Random Urine Culture ESCHERICHIA COLI 10 to 50,000 CFU/ML Report Status FINAL 03/29/2022 SUSCEPTIBILITY Organism ESCHERICHIA COLI Method CHAVO Ampicillin >=32 RESISTANT Aztreonam <=1 SUSCEPTIBLE Cefazolin <=4 SUSCEPTIBLE Cefazolin sensitivity results can be used to predict the effectiveness of oral cephalosporins (eg. Cephalexin) in uncomplicated Urinary Tract Infections due to E. coli, K. pneumoniae, and P. mirabilis Ceftriaxone <=1 SUSCEPTIBLE Ciprofloxacin >=4 RESISTANT ESBL NEGATIVE Gentamicin <=1 SUSCEPTIBLE Nitrofurantoin <=16 SUSCEPTIBLE Tobramycin <=1 SUSCEPTIBLE Trimethoprim/Sulfa <=20 SUSCEPTIBLE Piperacillin/Tazobactam <=4 SUSCEPTIBLE Susceptible [facility] Comment on above: Performed By: #### U RC #### [address] [address] Aquaculturist: Daniel Perez MD UA w/Reflex Cultureon 2021 Bilirubin, SemiQt,Ur Negative Normal NEG [facility] Comment on above: Performed By: #### M G, CBC, RENP #### [address] [address] Aquaculturist: Daniel Perez MD Blood, Urine TRACE Abnormal NEG [facility] Comment on above: Performed By: #### M G, CBC, RENP #### [address] [address] Aquaculturist: Daniel Perez MD Clarity (U) Clear Normal CLEAR [facility] Comment on above: Performed By: #### M G, CBC, RENP #### [address] [address] Aquaculturist: Daniel Perez MD Color (U) Yellow Normal YEL [facility] Comment on above: Performed By: #### M G, CBC, RENP #### [facility] [employer] [address] [place] [address] Aquaculturist: Daniel Perez MD Glucose Ql (U) Negative Normal NEG [facility] Comment on above: Performed By: #### M G, CBC, RENP #### [address] [address] Aquaculturist: Daniel Perez MD Ketones Ql (U) Negative Normal NEG [facility] Comment on above: Performed By: #### M G, CBC, RENP #### [address] [address] Aquaculturist: Daniel Perez MD Leukocyte esterase Test strip Ql (U) SMALL Abnormal NEG [facility] Comment on above: Performed By: #### M G, CBC, RENP #### [address] [address] Aquaculturist: Daniel Perez MD Nitrite,Ur Negative Normal NEG [facility] Comment on above: Performed By: #### M G, CBC, RENP #### [address] [address] Aquaculturist: Daniel Perez MD PH,Ur 6.0 Normal 5.0-8.0 [facility] Comment on above: Performed By: #### M G, CBC, RENP #### [address] [address] Aquaculturist: Daniel Perez MD Protein Ql (U) Negative Normal NEG [facility] Comment on above: Performed By: #### M G, CBC, RENP #### [address] [address] Aquaculturist: Daniel Perez MD Spec. [place],Ur 1.009 Normal 1.005-1.03 0 [facility] Comment on above: Performed By: #### M G, CBC, RENP #### [address] [address] Aquaculturist: Daniel Perez MD Urobilinogen,Ur Normal Normal NORM [facility] Comment on above: Performed By: #### M G, CBC, RENP #### [facility] [employer] [address] [place] [address] Aquaculturist: Daniel Perez MD Urinalysis,Microon 2 Casts 0 TO 2 HYALINE Normal 0-8 [facility] Comment on above: Result Comment: Refe rence range defined for non-centrifuged specimen. Performed By: #### M G, CBC, RENP #### [facility] [employer] [address] [place] [address] Aquaculturist: Daniel Perez MD Epithelial cells LM Ql (Urine sed) 2 TO 5 Normal 0-5 [facility] Comment on above: Performed By: #### M G, CBC, RENP #### [facility] [address] [place] [address] Aquaculturist: Daniel ePrez MD Urine RBC's 0 TO 2 Normal 0-4 [facility] Comment on above: Result Comment: Refe rence range defined for non-centrifuged specimen. Performed By: #### M G, CBC, RENP #### [facility] [employer] [address] [place] [address] Aquaculturist: Daniel Perez MD Urine WBC's 20 TO 50 Normal 0-5 [facility] [facility] Comment on above: Performed By: #### M G, CBC, RENP #### [facility] [employer] [address] [place] [id number] Aquaculturist: Daniel Perez MD XR KNEE RIGHT (3 VIEWS)on 1. Mild tricompartme ntal osteoarthrosis. Small joint effusion. 2. No acute fracture or dislocation. [facility] RIS CONSOLIDATED EXAMINATION: THREE XRAY VIEWS OF THE RIGHT KNEE 08/30/2021 12:55 pm COMPARISON: None. HISTORY: ORDERING SYSTEM PROVIDED HISTORY: eval bony injury TECHNOLOGIST PROVIDED HISTORY: eval bony injury 56-year-old female; evaluate for bony injury FINDINGS: Mild tricompartmental osteophyte spurring. Mild degenerative changes/narrowing of the medial and patellofemoral compartments. Osseous alignment is normal. No suspicious osteolytic or osteoblastic lesions. No acute fracture or dislocation. Small joint effusion. Atherosclerotic calcification of the vasculature. PN Shaheed Emerson MD - 08/30/2021 EXAMINATION: THREE XRAY VIEWS OF THE RIGHT KNEE 08/30/2021 12:55 pm COMPARISON: None. HISTORY: ORDERING SYSTEM PROVIDED HISTORY: eval bony injury TECHNOLOGIST PROVIDED HISTORY: eval bony injury 56-year-old female; evaluate for bony injury FINDINGS: Mild tricompartmental osteophyte spurring. Mild degenerative changes/narrowing of the medial and patellofemoral compartments. Osseous alignment is normal. No suspicious osteolytic or osteoblastic lesions. No acute fracture or dislocation. Small joint effusion. Atherosclerotic calcification of the vasculature. IMPRESSION: 1. Mild tricompartmental osteoarthrosis. Small joint effusion. 2. No acute fracture or dislocation. [employer] Work Phone: Radiology Study observation (narrative) [facility] Work Phone: XR KNEE RIGHT (3 VIEWS)Order ed By: Shaheed Tran on 08-30-2021 [employer] Work Phone: UrinalysisOrdered By: Payam Griffin on 01-27-2021 Bilirubin Urine Negative NEGATIVE [facility] Work Phone: Color, UA YELLOW YELLOW [employer] Work Phone: Glucose, Ur Negative NEGATIVE [employer] Work Phone: Ketones Ql (U) Negative NEGATIVE [employer] Work Phone: Leukocyte esterase Test strip Ql (U) Negative NEGATIVE [employer] Work Phone: Nitrite, Urine Negative NEGATIVE [employer] Work Phone: pH, UA 5.0 [employer] Work Phone: Protein, UA Negative NEGATIVE [employer] Work Phone: Specific [place], UA 1.008 [employer] Work Phone: Turbidity UA CLEAR CLEAR [employer] Phone: Urinalysis Comments Microscopic exam not performed based on chemical results unless requested in original order. [employer] Phone: Urine Hgb Negative NEGATIVE [employer] Phone: Urobilinogen, Urine Normal Normal [employer] Phone: [employer] Phone: CT lung screen [Initial/Kenisha al]Ordered By: Axel Avila on 12-02-2020 1. No suspicious pulmonary nodule or mass. 2. Compressive atelectasis in the left lower lobe and lingula along the cardiac border. Mild opacity/scarring along the posterior left upper lobe at the left major fissure. 3. Mild emphysema. Respiratory motion. 4. Cardiomegaly. Coronary artery disease. Probable pulmonary arterial hypertension. 5. Small hiatal hernia. Patulous esophagus. LUNG RADS: Per ACR Lung-RADS Version 1.1 Category 1, Negative (No nodules and definitely benign nodules). Management: Continue annual lung screening with LDCT in 12 months. RECOMMENDATIONS: If you would like to register your patient with the [employer] Lung Nodule/Lung Cancer Screening Program, please contact the Nurse Navigator at [phone]). [employer] Phone: EXAMINATION: LOW DOS E SCREENING CT OF THE CHEST WITHOUT CONTRAST 12/02/2020 1:55 pm TECHNIQUE: Low dose lung cancer screening CT of the chest was performed without the administration of intravenous contrast. Multiplanar reformatted images are provided for review. Dose modulation, iterative reconstruction, and/or weight based adjustment of the mA/kV was utilized to reduce the radiation dose to as low as reasonably achievable. Pmbua-cn-ueky: 32 cm Dose Length Product: 61.58 mGy CTDlvol: 1.90 mGy COMPARISON: 11/10/2019 HISTORY: Screening. Patient Age: 55 y/o Number of pack years of smokin pack years If no longer smoking, number of years since cessation: 2 months Other symptoms: None. Additional history: ORDERING SYSTEM PROVIDED HISTORY: Personal history of tobacco use TECHNOLOGIST PROVIDED HISTORY: Age: 55 y.o. Smoking History: Social History Tobacco Use Smoking status: Former Smoker Packs/day: 0.50 Years: 40.00 Pack years: 20 Types: Cigarettes Quit date: 09/15/2020 Smokeless tobacco: Never Used Tobacco comment: smokes occassionally Alcohol use: No Alcohol/week: 0.0 standard drinks Drug use: No Pack years: [address] lung screen: 11/10/2019 Is there documentation of shared decision making?->Yes Does the patient show any signs or symptoms of lung cancer?->No Is this the first (baseline) CT or an annual exam?->Annual Is this a low dose CT or a routine CT?->Low Dose CT Smoking Status?->Former Smoker Date quit smoking? (must be within 15 years)->09/15/20 Smoking packs per day?->.5 Years smoking?->40 Reason for Exam: Pt states she is a current everyday smoker of 47 years about 1 pack per day, hx of copd, asthma, bronchitis and emphysema. Pt c/o sob and cough. Type of Exam: Subsequent/Follow-up FINDINGS: Mediastinum: Cardiomegaly. Coronary artery disease. No pericardial or pleural effusions. Enlargement of the main pulmonary artery consistent with pulmonary arterial hypertension measuring 3.6 cm transversely on image 50, series 2. Visualized thyroid gland grossly unremarkable in appearance. No axillary, mediastinal, or hilar lymphadenopathy. Patulous esophagus. Lungs/Pleura: Trachea and proximal central airways appear patent. Mild emphysema. No pneumothorax. Respiratory motion. Compressive atelectasis in the left lower lobe and lingula along the cardiac border. Mild opacity/scarring along the posterior left upper lobe along the left major fissure superiorly on image 17, series 4. No suspicious noncalcified pulmonary nodule or mass. Upper Abdomen: Atherosclerotic calcification of the branch vasculature. Small hiatal hernia. Soft Tissues/Bones: Mild diffuse degenerative changes throughout the spine. [employer] Phone: Ga, Mhpn Incoming Radiant Results From [employer] - 12/02/2020 7:34 PM EDT EXAMINATION: LOW DOSE SCREENING CT OF THE CHEST WITHOUT CONTRAST 12/02/2020 1:55 pm TECHNIQUE: Low dose lung cancer screening CT of the chest was performed without the administration of intravenous contrast. Multiplanar reformatted images are provided for review. Dose modulation, iterative reconstruction, and/or weight based adjustment of the mA/kV was utilized to reduce the radiation dose to as low as reasonably achievable. Furbq-xv-jvwv: 32 cm Dose Length Product: 61.58 mGy CTDlvol: 1.90 mGy COMPARISON: 11/10/2019 HISTORY: Screening. Patient Age: 55 y/o Number of pack years of smokin pack years If no longer smoking, number of years since cessation: 2 months Other symptoms: None. Additional history: ORDERING SYSTEM PROVIDED HISTORY: Personal history of tobacco use TECHNOLOGIST PROVIDED HISTORY: Age: 55 y.o. Smoking History: Social History Tobacco Use Smoking status: Former Smoker Packs/day: 0.50 Years: 40.00 Pack years: 20 Types: Cigarettes Quit date: 09/15/2020 Smokeless tobacco: Never Used Tobacco comment: smokes occassionally Alcohol use: No Alcohol/week: 0.0 standard drinks Drug use: No Pack years: [address] lung screen: 11/10/2019 Is there documentation of shared decision making?->Yes Does the patient show any signs or symptoms of lung cancer?->No Is this the first (baseline) CT or an annual exam?->Annual Is this a low dose CT or a routine CT?->Low Dose CT Smoking Status?->Former Smoker Date quit smoking? (must be within 15 years)->09/15/20 Smoking packs per day?->.5 Years smoking?->40 Reason for Exam: Pt states she is a current everyday smoker of 47 years about 1 pack per day, hx of copd, asthma, bronchitis and emphysema. Pt c/o sob and cough. Type of Exam: Subsequent/Follow-up FINDINGS: Mediastinum: Cardiomegaly. Coronary artery disease. No pericardial or pleural effusions. Enlargement of the main pulmonary artery consistent with pulmonary arterial hypertension measuring 3.6 cm transversely on image 50, series 2. Visualized thyroid gland grossly unremarkable in appearance. No axillary, mediastinal, or hilar lymphadenopathy. Patulous esophagus. Lungs/Pleura: Trachea and proximal central airways appear patent. Mild emphysema. No pneumothorax. Respiratory motion. Compressive atelectasis in the left lower lobe and lingula along the cardiac border. Mild opacity/scarring along the posterior left upper lobe along the left major fissure superiorly on image 17, series 4. No suspicious noncalcified pulmonary nodule or mass. Upper Abdomen: Atherosclerotic calcification of the branch vasculature. Small hiatal hernia. Soft Tissues/Bones: Mild diffuse degenerative changes throughout the spine. IMPRESSION: 1. No suspicious pulmonary nodule or mass. 2. Compressive atelectasis in the left lower lobe and lingula along the cardiac border. Mild opacity/scarring along the posterior left upper lobe at the left major fissure. 3. Mild emphysema. Respiratory motion. 4. Cardiomegaly. Coronary artery disease. Probable pulmonary arterial hypertension. 5. Small hiatal hernia. Patulous esophagus. LUNG RADS: Per ACR Lung-RADS Version 1.1 Category 1, Negative (No nodules and definitely benign nodules). Management: Continue annual lung screening with LDCT in 12 months. RECOMMENDATIONS: If you would like to register your patient with the [employer] Lung Nodule/Lung Cancer Screening Program, please contact the Nurse Navigator at [phone]). [employer] Phone: [employer] Phone: Post Op (General Surgery)on 11-10-2020 Post Op (General Surgery) Diagnoses/Problems Achalasia (530.0) (K22.0) Orders Achalasia Start: Pantoprazole Sodium 40 MG Oral Tablet Delayed Release; TAKE 1 TABLET DAILY Rx By: Mahesh Mcknight; Dispense: 90 Days ; #:90 Tablet; Refill: 2;For: Achalasia; CRICKET = N; Verified Transmission to [facility]; Last Updated By: Gilles Lam; 11/10/2020 12:42:03 PM Follow-up PRN Outpatient Follow-up Status: Active Requested for: 10Nov2020 Ordered Stat;For: Achalasia; Ordered By: Mahesh Mcknight Performed: Due: 08Feb2021 Patient Discussion/Summary Patient doing well status post peroral endoscopic myotomy and she was advised to continue to advance her diet as tolerated. She will continue her proton pump inhibitor daily. She was advised to contact us for any worsening symptoms including dysphagia, chest pain, or reflux symptoms. She will undergo an EGD with bell off meds in 6 months. She will followup PRN Provider Impressions Patient doing well status post peroral endoscopic myotomy and she was advised to continue to advance her diet as tolerated. She will continue her proton pump inhibitor daily. She was advised to contact us for any worsening symptoms including dysphagia, chest pain, or reflux symptoms. She will undergo an EGD with bell off meds in 6 months. She will followup PRN Chief Complaint POV History of Present IllnessA telephone visit (audio only) between the patient and the provider was utilized to provide this telehealth service. Verbal consent was requested and obtained from BHARAT MANZANARES on this date, 11/10/20, for a telehealth visit. This communication lasted 15 minutes. Ms. Manzanares is s/p POEM on 10/25/20. She is tolerating a soft diet. She denies dysphagia or odynophagia. She has one episode of vomiting after eating a large meal. Since that episode, she has been eating smaller meals throughout the day, cutting up her food in small pieces and taking her time when she eats. She denies abdominal pain. She reports episodes of reflux and heartburn. She ran out of her PPI. I will send her prescription over to her pharmacy today. She states that she was seen in the ED after she returned home and was diagnosed with a blood clot in her right arm where her PICC line was removed. She is taking Eliquis and is follow-up with vascular at a hospital in [place]. Active Problems Dysphagia, unspecified type (787.20) (R13.10) Pre-op testing (V72.84) (Z01.818) Past Medical History History of cerebral palsy (V12.49) (Z86.69) Social History Current every day smoker (305.1) (F17.200) Allergies Dust Mite Mixed Allergen Ext SOLN Recorded By: Starla Samano; 08/25/2020 11:59:26 AM Histamine POWD Recorded By: Starla Samano; 08/25/2020 11:59:26 AM Current Meds Medication NameInstruction Advair HFA 115-21 MCG/ACT Inhalation Aerosol Albuterol-Ipratropium 2.5-0.5 MG/3ML SOLN Atorvastatin Calcium 20 MG Oral Tablet Haloperidol 2 MG Oral Tablet Levothyroxine Sodium 175 MCG Oral Tablet metFORMIN HCl - 500 MG Oral Tablet Myrbetriq 50 MG Oral Tablet Extended Release 24 Hour Nicotine 14 MG/24HR Transdermal Patch 24 Hour Oxybutynin Chloride 5 MG Oral Tablet ProAir HFA 108 (90 Base) MCG/ACT Inhalation Aerosol Solution Signatures Electronically signed by : Mahesh Mcknight MD; Nov 10 2020 3:33PM EST (Author) Normal Touchworks CBCon 10-27-2020 Erythrocyte distribution width (RBC) [Ratio] 15.4 % High 11.5 - 14.5 [facility] Comment on above: Performed By: #### B MP #### [facility] [address] [place] [address] Hematocrit (Bld) [Volume fraction] 32.1 % Low 36.0 - 46.0 [facility] Comment on above: Performed By: #### B MP #### [facility] [address] [place] [address] Hemoglobin (Bld) [Mass/Vol] 10.3 g/dL Low 12.0 - 16.0 [facility] Comment on above: Performed By: #### B MP #### [facility] [address] [place] [address] MCHC (RBC) [Mass/Vol] 32.1 g/dL Normal 32.0 - 36.0 [facility] Comment on above: Performed By: #### B MP #### [facility] [address] [place] [address] MCV (RBC) [Entitic vol] 88 fL Normal 80 - 100 U [facility] Comment on above: Performed By: #### B MP #### [facility] [address] [place] [address] NUCLEATED RBC 0.0 /100 WBC Normal 0.0-0.0 [facility] Comment on above: Performed By: #### B MP #### [facility] [address] [place] [address] Platelets (Bld) [#/Vol] 208 10*3/uL Normal 150 - 450 [facility] Comment on above: Performed By: #### B MP #### [facility] [address] [place] [address] RBC 3.65 x10E12/L Low 4.00 - 5.20 [facility] Comment on above: Performed By: #### B MP #### [facility] [address] [place] [address] WBC (Bld) [#/Vol] 12.5 10*3/uL High 4.4 - 11.3 [facility] Comment on above: Performed By: #### B MP #### [facility] [address] [place] [address] COMPREHENSIVE PANELon 2020 Albumin [Mass/Vol] 2.3 g/dL Low 3.4 - 5.0 [facility] Comment on above: Performed By: #### B MP #### [facility] [address] [place] [address] ALP [Catalytic activity/Vol] 88 U/L Normal 33 - 110 [facility] Comment on above: Performed By: #### B MP #### [facility] [address] [place] [address] ALT [Catalytic activity/Vol] 8 U/L Normal 7 - 45 [facility] Comment on above: Result Comment: Fani ents treated with Sulfasalazine may generate falsely decreased results for ALT. Performed By: #### B MP #### [facility] [address] [place] [address] Anion gap [Moles/Vol] 11 mmol/L Normal 10 - 20 [facility] Comment on above: Performed By: #### B MP #### [facility] [address] [place] [address] AST [Catalytic activity/Vol] 12 U/L Normal 9 - 39 [facility] Comment on above: Performed By: #### B MP #### [facility] [address] [place] [address] Bilirubin [Mass/Vol] 0.4 mg/dL Normal 0.0 - 1.2 [facility] Comment on above: Performed By: #### B MP #### [facility] [address] [place] [address] Calcium [Mass/Vol] 8.1 mg/dL Low 8.6 - 10.6 [facility] Comment on above: Performed By: #### B MP #### [facility] [address] [place] [address] Chloride [Moles/Vol] 100 mmol/L Normal 98 - 107 [facility] Comment on above: Performed By: #### B MP #### [facility] [address] [place] [address] Creatinine [Mass/Vol] 0.82 mg/dL Normal 0.50 - 1.05 [facility] Comment on above: Performed By: #### B MP #### [facility] [address] [place] [address] GFR- AM. >60 Normal >60 [facility] Comment on above: Result Comment: CALC ULATIONS OF ESTIMATED GFR ARE PERFORMED USING THE MDRD STUDY EQUATION FOR THE IDMS-TRACEABLE CREATININE METHODS. CLIN CHEM 2007;53:766-72 Performed By: #### B MP #### [facility] [address] [place] [address] GFR-NON AM. >60 Normal >60 [facility] Comment on above: Performed By: #### B MP #### [facility] [address] [place] [address] Glucose [Mass/Vol] 113 mg/dL High 74 - 99 [facility] Comment on above: Performed By: #### B MP #### [facility] [address] [place] [address] HCO3 (Bld) [Moles/Vol] 33 mmol/L High 21 - 32 [facility] Comment on above: Performed By: #### B MP #### [facility] [address] [place] [address] Potassium [Moles/Vol] 3.6 mmol/L Normal 3.5 - 5.3 [facility] Comment on above: Performed By: #### B MP #### [facility] [address] [place] [address] Protein [Mass/Vol] 4.9 g/dL Low 6.4 - 8.2 [facility] Comment on above: Performed By: #### B MP #### [facility] [address] [place] [address] Sodium [Moles/Vol] 140 mmol/L Normal 136 - 145 [facility] Comment on above: Performed By: #### B MP #### [facility] [address] [place] [address] Urea nitrogen [Mass/Vol] 23 mg/dL Normal 6 - 23 [facility] Comment on above: Performed By: #### B MP #### [facility] [address] 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 May shower. May return to school/work as tolerated Instructions: May not drive while taking narcotics. No pushing, pulling, or lifting objects greater than 10 pounds for 4. Weight-bearing Instructions: full weight bearing. Diet: Dietfull liquids, Full liquid diet for 1 week following discharge from hospital Diet Consistency/Texturesoft, soft diet starting after 1 week of full liquids. To remain on soft diet until follow up visit with Dr. Mcknight Additional Orders: Additional Instructions Stop taking Haloperidol. Follow up as scheduled with your psychiatrist to discuss dosage of haloperidol before restarting. Please take Fluconazole 400mg (2 tabs) daily for 12 days. Please use Nystatin Oral Rinse every 8 hours (or 3x daily) for 12 days. Please take Pantoprazole 40mg daily for the next 6 months. Full liquid diet for 1 week after discharge from hospital. Then transition to soft diet until follow up visit with Dr. Mcknight. Follow up as scheduled with psychiatry and Dr. Mcknight. Call Provider If (Homegoing Patients): Breathing harder than normal or having retractions. Temperature is greater than 102 degrees. Chills. Acting very sleepy and difficult to awaken. Vomiting (throwing up) and not able to eat or drink for 12 hours. Any new concerning symptoms. Hospital Course (Home Care/Gold Form): Hospital Course: Hospital Course: include significant abnormal lab values BHARAT MANZANARES is a 55 year old Female with a PMH significant for CHF, COPD, T2DM, hypothyroidism, and cerebral palsy who presented to the ED for chronic dysphagia and inability to tolerate solid foods, liquids, or medications. She was admitted to the hospital on 10/18. An upper GI series on 10/19 was significant for severe narrowing at GE junction without passage of contrast. Based on findings, patient was transported to [facility] on 10/21 for EGD with manometry and then transferred back to [facility] following procedure. Was found to be hypotensive early in hospitalization, responded well to IVF. Dr. Ramirez consulted for optimization. Was found to be bradycardic on telemetry overnight 10/19, recommended Echo for 10/20, suspecting increased vagal tone leading to achalasia and arrhythmia. Echo significant for EF 60%, no wall motion abnormalities. EKG on 10/19 significant for qtc 594, home haloperidol held, repeat EKG on 10/20 qtc 365. Additionally, TPN started on 10/20 after PICC placement on 10/19. POEM done on 10/[address] Mcknight. Verbal consent obtained from legal guardian, Jessica, for procedures - signed in chart. Esophogram on 10/26 negative for leak and diet was advanced to CLD. Patient tolerated CLD without issue and diet was advanced to full liquids. She has remained hemodynamically stable during her hospitalization and is stable for discharge home. Patient to be discharged home on full liquid diet for one week then to advance to soft diet until follow up appointment with Dr. Mcknight. Her home Haloperidol is held due to prolonged QT while in hospital,. Psychiatry was consulted and recommended discontinuing haloperidol until Ms. Manzanares is able to follow up with her home psychiatrist on 11/01. Provider FINAL REVIEW of Orders: Final Review: Final Review of Medication Reconciliation and Orders Completedby Physician Reviewing ProviderNicole Deleon MD (Resident) at 27-Oct-2020 10:18:52 Appointments: Follow-Up Appointment 01: Physician/Dept/Li Mcknight Reason for ReferralSurgical Follow Up - Virtual Call to Schedule in2 weeks LocationVirtual Follow Up Phone [phone] Mcknight' office to schedule a virtual follow up visit in 2 weeks. Electronic Signatures: Nicole Deleon (Resident)) (Signed 27-Oct-2020 10:21) Authored: Discharge Orders, Hospital Course (Home Care/Gold Form), Provider FINAL REVIEW of Orders, Appointments, Gold Form - Pattern Grader Cutter Summary Last Updated: 27-Oct-2020 10:21 by Nicole Deleon ( (Resident)) Normal [facility] GLUCOSE-POCTon 10-27-2020 Glucose [Mass/Vol] 129 mg/dL High 74 - 99 [facility] Comment on above: Performed By: #### T 4FRE #### [facility] [address] [place] [address] Glucose [Mass/Vol] 133 mg/dL High 74 - 99 [facility] Comment on above: Performed By: #### C OVSC #### [facility] [address] [place] [address] Glucose [Mass/Vol] 106 mg/dL High 74 - 99 [facility] Comment on above: Performed By: #### C OVSC #### [facility] [address] [place] [address] MAGNESIUMon 10-27-2020 Magnesium [Mass/Vol] 1.66 mg/dL Normal 1.60 - 2.40 [facility] Comment on above: Performed By: #### B MP #### [facility] [address] [place] [address] Order Reconciliationon 10-27 Order Reconciliation Page 1 Discharge Reconciliation Document Reconciliation Type: Discharge requested on behalf of Nicole Deleon (Resident) done by Nicole Deleon (Resident)) Discharge - Reconciliation: 27-Oct-2020 08:38 by: Nicole Deleon ( (Resident)) Discharge - Reset to Incomplete: 27-Oct-2020 09:24 by: Nicole Deleon ( (Resident)) Discharge - Reconciliation: 27-Oct-2020 09:26 by: Nicole Deleon (Resident)) Home Medications EnteredHOME MEDICATIONS AT DISCHARGE DateReconciliation Comment/ Additional Information Albuterol-Ipratropium [place] 20-Oct-2020 14:17 Albuterol-Ipratropium [place] 20-Oct-2020 14:17 Albuterol-Ipratropium [place] is continued as Albuterol-Ipratropium [place] Atorvastatin Calcium 20-Oct-2020 14:15 Atorvastatin Calcium 20-Oct-2020 14:15 Atorvastatin Calcium is continued as Atorvastatin Calcium Fluticasone 20-Oct-2020 14:14 Fluticasone 20-Oct-2020 14:14 Fluticasone is continued as Fluticasone Haloperidol 20-Oct-2020 14:16 Discontinued; Discontinue from ORM Haloperidol is not required Levothyroxine Sodium 20-Oct-2020 14:16 Levothyroxine Sodium 20-Oct-2020 14:16 Levothyroxine Sodium is continued as Levothyroxine Sodium Metformin HCl-Pioglitazone HCl 20-Oct-2020 14:15 Metformin HCl-Pioglitazone HCl 20-Oct-2020 14:15 Metformin HCl-Pioglitazone HCl is continued as Metformin HCl-Pioglitazone HCl Mirabegron 20-Oct-2020 14:15 Mirabegron 20-Oct-2020 14:15 Mirabegron is continued as Mirabegron Nicotine 20-Oct-2020 14:16 Discontinued; Discontinue from ORM Nicotine is not required Oxybutynin Chloride 20-Oct-2020 14:15 Oxybutynin Chloride 20-Oct-2020 14:15 Oxybutynin Chloride is continued as Oxybutynin Chloride TPN K22.0; K20.9 27-Oct-2020 08:46 Discontinued; Discontinue from ORM TPN is not required Current OrdersDateHOME MEDICATIONS AT DISCHARGE DateReconciliation Comment/ Additional Information Albuterol 2.5mg - Ipratropium 0.5 mg/ 3mL Neb Soln (DUONEB)DOSE = 3 mL Inhalation Every 6 Hours via Nebulizer, PRN Shortness of Breath 25-Oct-2020 16:41 Albuterol 2.5mg - Ipratropium 0.5 mg/ 3mL Neb Soln is not required Atorvastatin Tablet (LIPITOR)DOSE = 20 mg Oral Daily 25-Oct-2020 16:36 Atorvastatin is not required Dextrose 50% in Water Injectable DOSE = 25 gram(s) IntraVenous Push Every 15 Minutes, PRN Blood Glucose 70 mg/dL or LESS & HAS IV accessClinician Notes: IF patient HAS a secure IV access & is Unconscious, Conscious, NPO or Unable to Eat or Drink. Re 25-Oct-2020 21:33 Dextrose 50% in Water Injectable is not required Fat Emulsion 20% (SMOFLIPID) Infusion 180 mL (SMOFLIPID) ( every 1 day: 20:00 ) at 15 mL/hr 20-Oct-2020 08:44 Fat Emulsion 20% (SMOFLIPID) Infusion is not required Fluconazole 400 mg IVPB/ Premixed NS 200 mL (DIFLUCAN)Every 24 HoursRecommended Infusion Time: 120 minute(s)Notes from Pharmacy: Reproductive Risk- Single Nitrile Glove 25-Oct-2020 16:36 fluconazole 200 mg oral tablet 2 tab(s) orally once a day for 12 days 27-Oct-2020 08:29 Prescription is created for fluconazole 200 mg oral tablet Glucagon Injectable DOSE = 1 mg IntraMuscular Every 15 Minutes, PRN Blood Glucose 70 mg/dL or LESS & NO IV accessClinician Notes: IF patient DOES NOT have secure IV access & is Unconscious, Conscious, NPO or Unable to Eat or Drink. Repeat until BG r 25-Oct-2020 21:33 Glucagon Injectable is not required Heparin SubCutaneous DOSE = 5,000 unit(s) SubCutaneous Every 12 HoursNotes from Pharmacy: Note Concentration Prior to Administration 25-Oct-2020 16:42 Heparin SubCutaneous is not required Insulin Lispro Mild Corrective Scale Give SubCutaneous Every 6 Hours Hypoglycemia Protocol Call LIP unit(s) if Blood Glucose is between 0 - 70 0 unit(s) if Blood Glucose is between 71 - 150 2 unit(s) if Blood Glucose is between 151 - 200 25-Oct-2020 21:33 Insulin Lispro Mild Corrective Scale is not required Levothyroxine Injectable (SYNTHROID)DOSE = 87.5 microgram(s) IntraVenous Push DailyNotes from Pharmacy: Dilute 100 mcg vial with 5 mL Normal Saline. Final Concentration 20 mcg/ mL. Use Immediately 25-Oct-2020 16:36 Levothyroxine Injectable is not required Nystatin Oral Liquid DOSE = 500,000 unit(s) Oral Every 8 HoursClinician Notes: swish and swallow 25-Oct-2020 16:38 nystatin 100,000 units/mL oral suspension 5 milliliter(s) orally every 8 hours 27-Oct-2020 08:34 Prescription is created for nystatin 100,000 units/mL oral suspension Ondansetron Injectable (ZOFRAN)DOSE = 4 mg IntraVenous Push Every 6 Hours, PRN Nausea and/or Vomiting 25-Oct-2020 19:07 Ondansetron Injectable is not required Pantoprazole Injectable (PROTONIX)DOSE = 40 mg IntraVenous Push Every 24 Hours 25-Oct-2020 14:40 pantoprazole 40 mg oral delayed release tablet 1 tab(s) orally once a day for 6 months 27-Oct-2020 09:25 Prescription is created for pantoprazole 40 mg oral delayed release tablet Technetium Tc 99m Sulfur Colloid - (Radiology Contrast) DOSE = 50 (more content not included)... Normal [facility] Order Reconciliation Page 1 Admission Reconciliation Document Reconciliation Type: Admission requested on behalf of Nicole Deleon (Resident) done by Nicole Deleon ( (Resident)) Admission - Reconciliation: 27-Oct-2020 08:25 by: Nicole Deleon ( (Resident)) Home MedicationsEnteredLast Dose TakenReconciled with current Order Reconciliation Comment/ Additional Information Albuterol-Ipratropium [place] 27-Oct-2020 Reviewed and Held Atorvastatin Calcium 27-Oct-2020 Reviewed and Held Fluticasone 27-Oct-2020 Reviewed and Held Haloperidol 27-Oct-2020 Reviewed and Held Levothyroxine Sodium 27-Oct-2020 Reviewed and Held Metformin HCl-Pioglitazone HCl 27-Oct-2020 Reviewed and Held Mirabegron 27-Oct-2020 Reviewed and Held Nicotine 27-Oct-2020 Reviewed and Held Oxybutynin Chloride 27-Oct-2020 Reviewed and Held Additional Current Orders Albuterol 2.5mg - Ipratropium 0.5 mg/ 3mL Neb Soln (DUONEB)DOSE = 3 mL Inhalation Every 6 Hours via Nebulizer, PRN Shortness of Breath Atorvastatin Tablet (LIPITOR)DOSE = 20 mg Oral Daily Dextrose 50% in Water Injectable DOSE = 25 gram(s) IntraVenous Push Every 15 Minutes, PRN Blood Glucose 70 mg/dL or LESS & HAS IV accessClinician Notes: IF patient HAS a secure IV access & is Unconscious, Conscious, NPO or Unable to Eat or Drink. Repeat until BG reaches 100 mg/dL or greater. Push 2-3 mL/minute. Discontinue once BG reaches 100 mg/dL or greater. Fat Emulsion 20% (SMOFLIPID) Infusion 180 mL (SMOFLIPID) ( every 1 day: 20:00 ) at 15 mL/hr Fluconazole 400 mg IVPB/ Premixed NS 200 mL (DIFLUCAN)Every 24 HoursRecommended Infusion Time: 120 minute(s)Notes from Pharmacy: Reproductive Risk- Single Nitrile Glove Glucagon Injectable DOSE = 1 mg IntraMuscular Every 15 Minutes, PRN Blood Glucose 70 mg/dL or LESS & NO IV accessClinician Notes: IF patient DOES NOT have secure IV access & is Unconscious, Conscious, NPO or Unable to Eat or Drink. Repeat until BG reaches 100 mg/dL or greater. Discontinue once BG reaches 100 mg/dL or greater. Heparin SubCutaneous DOSE = 5,000 unit(s) SubCutaneous Every 12 HoursNotes from Pharmacy: Note Concentration Prior to Administration Insulin Lispro Mild Corrective Scale Give SubCutaneous Every 6 Hours Hypoglycemia Protocol Call LIP unit(s) if Blood Glucose is between 0 - 70 0 unit(s) if Blood Glucose is between 71 - 150 2 unit(s) if Blood Glucose is between 151 - 200 4 unit(s) if Blood Glucose is between 201 - 250 6 unit(s) if Blood Glucose is between 251 - 300 8 unit(s) if Blood Glucose is between 301 - 350 10 unit(s) if Blood Glucose is between 351 - 400 Notify Provider unit(s) if Blood Glucose is greater than 400Notes from Pharmacy: RCRA Levothyroxine Injectable (SYNTHROID)DOSE = 87.5 microgram(s) IntraVenous Push DailyNotes from Pharmacy: Dilute 100 mcg vial with 5 mL Normal Saline. Final Concentration 20 mcg/ mL. Use Immediately Nystatin Oral Liquid DOSE = 500,000 unit(s) Oral Every 8 HoursClinician Notes: swish and swallow Ondansetron Injectable (ZOFRAN)DOSE = 4 mg IntraVenous Push Every 6 Hours, PRN Nausea and/or Vomiting Pantoprazole Injectable (PROTONIX)DOSE = 40 mg IntraVenous Push Every 24 Hours Technetium Tc 99m Sulfur Colloid - (Radiology Contrast) DOSE = 500 microCurie Oral Once TPN Standard- Amino Acids 5 % - Dextrose 15% 2,000 mL Multivitamins 10 mL/Day Trace Elements 1 mL/DayStandard Electrolytes in TPN:Sodium 35 mEq/ L Acetate 80 mEq/ LPotassium 30 mEq/ L Chloride 39 mEq/ LMagnesium 5 mEq/ L Calcium 4.5 mEq/ L Phosphate 15 mmol/ LIntraVenous per Central LineInfuse at: 65 mL/hrClinician Notes: Central LineStart at 25 ml/hr and increase by 20 ml daily until goal rate of 65 ml/hr is reached. Trimethobenzamide IntraMuscular (TIGAN)DOSE = 200 mg IntraMuscular 3 Times a Day, PRN Nausea winslow Vomiting Normal [facility] CBCon 10-26-2020 Erythrocyte distribution width (RBC) [Ratio] 15.5 % High 11.5 - 14.5 [facility] Comment on above: Performed By: #### R ENAL #### [facility] [address] [place] [address] Hematocrit (Bld) [Volume fraction] 34.2 % Low 36.0 - 46.0 [facility] Comment on above: Performed By: #### R ENAL #### [facility] [address] [place] [address] Hemoglobin (Bld) [Mass/Vol] 11.0 g/dL Low 12.0 - 16.0 [facility] Comment on above: Performed By: #### R ENAL #### [facility] [address] [place] [address] MCHC (RBC) [Mass/Vol] 32.2 g/dL Normal 32.0 - 36.0 [facility] Comment on above: Performed By: #### R ENAL #### [facility] [address] [place] [address] MCV (RBC) [Entitic vol] 87 fL Normal 80 - 100 [facility] Comment on above: Performed By: #### R ENAL #### [facility] [address] [place] [address] NUCLEATED RBC 0.0 /100 WBC Normal 0.0-0.0 [facility] Comment on above: Performed By: #### R ENAL #### [facility] [address] [place] [address] Platelets (Bld) [#/Vol] 230 10*3/uL Normal 150 - 450 [facility] Comment on above: Performed By: #### R ENAL #### [facility] [address] [place] [address] RBC 3.91 x10E12/L Low 4.00 - 5.20 [facility] Comment on above: Performed By: #### R ENAL #### [facility] [address] [place] [address] WBC (Bld) [#/Vol] 13.0 10*3/uL High 4.4 - 11.3 [facility] Comment on above: Performed By: #### R ENAL #### [facility] [address] [place] [address] Clinical Event Note-Collater al Discussion with Primary Teamon 10-26-2020 Clinical Event Note-Collateral Discussion with Primary Team Clinical Event: Clinical Event Note: TopicCollateral Discussion with Primary Team Details Confirmed with primary team that Ms. Manzanares is doing well s/p POEM on 10/25/2020. UGI performed today (10/26/2020) showed no leaks. Patient was placed on CLD and PO meds were resumed. She is expected to be discharged in the next 1-2 days. Psychiatry was initially consulted for IV Haldol management in the setting of prolonged QTc of 590 ms after previous admission. Our recommendations included stopping IV Haldol, obtaining TSH (15.99 with reflex T4 WNL), and repeating EKG (QTc = 365 ms on 10/20/2020). Primary team appreciated our recommendations and asked about resuming her home PO Haldol as she is no longer NPO after her procedure. At this time, we recommend pausing the home PO Haldol and defer to her outpatient psychiatric provider for further management. She is scheduled to meet with her outpatient provider in 6 days (11/01/2020) for her Invega-Trinza shot. At this time, we have no further recommendations. Primary team doesn't require any additional support from a psychiatric perspective. It was a pleasure to collaborate in the care of this patient, and psychiatry will be signing off. Electronic Signatures: Teresa Estrada (MED STUD) (Signed 26-Oct-2020 16:05) Authored: Clinical Event Note Last Updated: 26-Oct-2020 16:05 by Munim, Teresa (MED STUD) Normal [facility] Daily Progress Note-Surgeryo n 10-26-2020 Daily Progress Note-Surgery Service: Surgery Subjective Data: BHARAT MANZANARES is a 55 year old Female who is Hospital Day # 9 and POD #1 for 1. per oral endoscopic myotomy (POEM). No overnight events. Reporting hunger and thirst this morning. Denies nausea or pain. Objective Data: Objective Information: T PRBPSpO2 [id number]/6194% Date/Time10/26 11: 11: 11: 11: 11:59 Range(36.2C - 37.4C ) (55 - 81 ) (18 - 19 ) (95 - 127 )/ (61 - 74 ) (91% - 99% ) Highest temp of 37.4 C was recorded at 10/26 11:59 Pain reported at 10/26 10:33: 0 = None Physical Exam by System: Constitutional: Resting comfortable, no distress, alert and cooperative Eyes: EOM grossly intact, clear sclera Head/Neck: Normocephalic, atraumatic Respiratory/Thorax: Breathing comfortably on room air. No respiratory distress. Cardiovascular: No tachycardia. Gastrointestinal: Abdomen nondistended, soft, non-tender. Musculoskeletal: ROM intact in all 4 extremities Neurological: Awake, alert, oriented. Psychological: Appropriate mood and behavior Skin: Warm and dry Medication: Medications: Continuous Medications -------- 1. TPN Standard- Amino Acids 5 % - Dextrose 15%: 2000 mL IntraVenous Scheduled Medications -------- 1. Fat Emulsion 20% (SMOFLIPID) Infusion: 180 mL IntraVenous Piggyback 2. Fluconazole 400 mg IVPB/ Premixed NS 200 mL: 200 mL IntraVenous Piggyback Every 24 Hours 3. Heparin SubCutaneous: 5000 unit(s) SubCutaneous Every 12 Hours 4. Insulin Lispro Mild Corrective Scale: unit(s) SubCutaneous Every 6 Hours 5. Levothyroxine Injectable: 87.5 microgram(s) IntraVenous Push Daily 6. Nystatin Oral Liquid: 333763 unit(s) Oral Every 8 Hours 7. Pantoprazole Injectable: 40 mg IntraVenous Push Every 24 Hours PRN Medications -------- 1. Albuterol 2.5mg - Ipratropium 0.5 mg/ 3mL Neb Soln: 3 mL Inhalation Every 6 Hours 2. Dextrose 50% in Water Injectable: 25 gram(s) IntraVenous Push Every 15 Minutes 3. Glucagon Injectable: 1 mg IntraMuscular Every 15 Minutes 4. Ondansetron Injectable: 4 mg IntraVenous Push Every 6 Hours 5. Trimethobenzamide IntraMuscular: 200 mg IntraMuscular 3 Times a Day Currently Suspended Medications -------- 1. Atorvastatin: 20 mg Oral Daily Recent Lab Results: Results: I have reviewed these laboratory results: Complete Blood Count 26-Oct-2020 05:32:00 ResultValue White Blood Cell Count 13.0 H Nucleated Erythrocyte Count 0.0 Red Blood Cell Count 3.91 L HGB 11.0 L HCT 34.2 L MCV 87 MCHC 32.2 PLT 230 RDW-CV 15.5 H Renal Function Panel 26-Oct-2020 05:32:00 ResultValue Glucose, Serum 107 H NA 137 K 3.7 CL 98 Bicarbonate, Serum 32 Anion Gap, Serum 11 BUN 21 CREAT 0.61 GFR-Non >60 GFR- >60 Calcium, Serum 8.4 L Phosphorus, Serum 4.1 ALB 2.3 L Magnesium, Serum 26-Oct-2020 05:32:00 ResultValue Magnesium, Serum 1.54 L Thyroid Stimulating Hormone, Serum 26-Oct-2020 05:32:00 ResultValue Thyroid Stimulating Hormone, Serum 5.28 H Free Thyroxine, Serum 26-Oct-2020 05:32:00 ResultValue Free Thyroxine, Serum 1.57 H Assessment and Plan: Code Status: Code StatusFull Code Assessment: Assessment: BHARAT MANZANARES is a 55 year old Female with a PMH significant for CHF, COPD, T2DM, hypothyroidism, and cerebral palsy who presented to the ED for chronic dysphagia and inability to tolerate solid foods, liquids, or medications. Upper GI series on 10/19 significant for severe narrowing at GE junction without passage of contrast. Based on findings, patient to be transported to [facility] on 10/21 for EGD with manometry and then transferred back to [facility] following procedure. Depending on findings, will consider POEM on Saturday, 10/24. Dr. Ramirez consulted for optimization. Based on bradycardia and telemetry from overnight 10/19, recommended Echo for 10/20, suspecting increased vagal tone leading to achalasia and arrhythmia. Echo significant for EF 60%, no wall motion abnormalities. EKG on 10/19 significant for qtc 594, home haloperidol held, repeat EKG on 10/20 qtc 365. Additionally, TPN started on 10/20 after PICC placement on 10/19. POEM scheduled for 10/[address] Mcknight. Verbal consent obtained from legal guardian, Jessica, for procedures - signed in chart. Esophogram on 10/26 negative for leak and diet was advanced to CLD. Plan: Neuro: Tylenol PRN for pain. Psychiatry consulted, holding home Haloperidol in setting of prolonged Qtc, recommend dc'ing home going with follow up with outpatient psych. CV: Holding home midodrine at this time. Echo on 10/21 EF 60%. On telemetry. Resp: On room air, IS. RT to evaluate and treat. Fluconazole 400mg IV q24h for esophageal hiro (10/22-) GI: TPN started on 10/20, EGD with manometry on 10/21, POEM 10/25 (more content not included)... Normal [facility] GI ESOPHAGRAMon 10-26-2020 GI ESOPHAGRAM Patient Name: BHARAT MANZANARES STUDY: GI ESOPHAGRAM; 10/26/2020 1:58 pm INDICATION: POD1 s/p POEM for achalasia. COMPARISON: None. Upper GI fluoroscopy dated 10/19/2020 ACCESSION NUMBER(S): [id number] ORDERING CLINICIAN: ALISON DANGELO TECHNIQUE: Initial shearing machine feeder radiograph of the esophagus was obtained. Multiple fluoroscopic spot images were obtained after the administration of 85 mL of Gastrografin. The patient tolerated the procedure well. Fluoroscopic time was 0.5 minutes. FINDINGS: Initial shearing machine feeder image demonstrates surgical clips projecting over the distal esophagus post POEM procedure. A small amount of postsurgical pneumoperitoneum is seen underlying the right hemidiaphragm. Post surgical changes from POEM procedure. Fluoroscopic images demonstrate normal peristalsis with free flow of contrast through the mid and distal esophagus and past the gastroesophageal junction without evidence of obstruction or stricture. There is no evidence of extraluminal contrast suggestive of leak. IMPRESSION: 1. No evidence of contrast extravasation to suggest leak status post POEM procedure. 2. Small amount of postsurgical pneumoperitoneum immediately inferior to the right hemidiaphragm. I personally reviewed the images/study and I agree with the findings as stated. This study was interpreted at [facility], [place], [place]. Electronically signed by: SOL BRIDGES MD Normal [facility] GLUCOSE-POCTon 10-26-2020 Glucose [Mass/Vol] 102 mg/dL High 74 - 99 [facility] Comment on above: Performed By: #### B MP #### [facility] [address] [place] [address] Glucose [Mass/Vol] 123 mg/dL High 74 - 99 [facility] Comment on above: Performed By: #### C BC #### [facility] [address] [place] [address] Glucose [Mass/Vol] 132 mg/dL High 74 - 99 [facility] Comment on above: Performed By: #### R ENAL #### [facility] [address] [place] [address] MAGNESIUMon 10-26-2020 Magnesium [Mass/Vol] 1.54 mg/dL Low 1.60 - 2.40 [facility] Comment on above: Performed By: #### C OVSC #### [facility] [address] [place] [address] RENAL FUNCTION PANELon 10-26 Albumin [Mass/Vol] 2.3 g/dL Low 3.4 - 5.0 [facility] Comment on above: Performed By: #### B MP #### [facility] [address] [place] [address] Anion gap [Moles/Vol] 11 mmol/L Normal 10 - 20 [facility] Comment on above: Performed By: #### B MP #### [facility] [address] [place] [address] Calcium [Mass/Vol] 8.4 mg/dL Low 8.6 - 10.6 [facility] Comment on above: Performed By: #### B MP #### [facility] [address] [place] [address] Chloride [Moles/Vol] 98 mmol/L Normal 98 - 107 [facility] Comment on above: Performed By: #### B MP #### [facility] [address] [place] [address] Creatinine [Mass/Vol] 0.61 mg/dL Normal 0.50 - 1.05 [facility] Comment on above: Performed By: #### B MP #### [facility] [address] [place] [address] GFR- AM. >60 Normal >60 [facility] Comment on above: Result Comment: CALC ULATIONS OF ESTIMATED GFR ARE PERFORMED USING THE MDRD STUDY EQUATION FOR THE IDMS-TRACEABLE CREATININE METHODS. CLIN CHEM 2007;53:766-72 Performed By: #### B MP #### [facility] [address] [place] [address] GFR-NON AM. >60 Normal >60 [facility] Comment on above: Performed By: #### B MP #### [facility] [address] [place] [address] Glucose [Mass/Vol] 107 mg/dL High 74 - 99 [facility] Comment on above: Performed By: #### B MP #### [facility] [address] [place] [address] HCO3 (Bld) [Moles/Vol] 32 mmol/L Normal 21 - 32 [facility] Comment on above: Performed By: #### B MP #### [facility] [address] [place] [address] Phosphate [Mass/Vol] 4.1 mg/dL Normal 2.5 - 4.9 [facility] Comment on above: Result Comment: The performance characteristics of phosphorus testing in heparinized plasma have been validated by the individual laboratory site where testing is performed. Testing on heparinized plasma is not approved by the FDA; however, such approval is not necessary. Performed By: #### B MP #### [facility] [address] [place] [address] Potassium [Moles/Vol] 3.7 mmol/L Normal 3.5 - 5.3 [facility] Comment on above: Performed By: #### B MP #### [facility] [address] [place] [address] Sodium [Moles/Vol] 137 mmol/L Normal 136 - 145 [facility] Comment on above: Performed By: #### B MP #### [facility] [address] [place] [address] Urea nitrogen [Mass/Vol] 21 mg/dL Normal 6 - 23 [facility] Comment on above: Performed By: #### B MP #### [facility] [address] [place] [address] THYROXINE,FREEon 10-26-2020 THYROXINE,FREE 1.57 ng/dL High 0.78 - 1.48 [facility] Comment on above: Result Comment: Thyr oxine Free testing is performed using different testing methodology at [facility] than at [facility]. Direct result comparisons should only be made within the same method. Performed By: #### B MP #### [facility] [address] [place] [address] TSHon 10-26-2020 TSH Qn 5.28 m[IU]/L High 0.44 - 3.98 [facility] Comment on above: Result Comment: TSH testing is performed using different testing methodology at [facility] than at other [facility]. Direct result comparisons should only be made within the same method. Performed By: #### B MP #### [facility] [address] [place] [address] CBCon 10-25-2020 Erythrocyte distribution width (RBC) [Ratio] 15.5 % High 11.5 - 14.5 [facility] Comment on above: Performed By: #### T 4FRE #### [facility] [address] [place] [address] Hematocrit (Bld) [Volume fraction] 33.0 % Low 36.0 - 46.0 [facility] Comment on above: Performed By: #### T 4FRE #### [facility] [address] [place] [address] Hemoglobin (Bld) [Mass/Vol] 11.1 g/dL Low 12.0 - 16.0 [facility] Comment on above: Performed By: #### T 4FRE #### [facility] [address] [place] [address] MCHC (RBC) [Mass/Vol] 33.6 g/dL Normal 32.0 - 36.0 [facility] Comment on above: Performed By: #### T 4FRE #### [facility] [address] [place] [address] MCV (RBC) [Entitic vol] 85 fL Normal 80 - 100 [facility] Comment on above: Performed By: #### T 4FRE #### [facility] [address] [place] [address] NUCLEATED RBC 0.0 /100 WBC Normal 0.0-0.0 [facility] Comment on above: Performed By: #### T 4FRE #### [facility] [address] [place] [address] Platelets (Bld) [#/Vol] 216 10*3/uL Normal 150 - 450 [facility] Comment on above: Performed By: #### T 4FRE #### [facility] [address] [place] [address] RBC 3.88 x10E12/L Low 4.00 - 5.20 [facility] Comment on above: Performed By: #### T 4FRE #### [facility] [address] [place] [address] WBC (Bld) [#/Vol] 7.7 10*3/uL Normal 4.4 - 11.3 [facility] Comment on above: Performed By: #### T 4FRE #### [facility] [address] [place] [address] Clinical Event Note-Post Op Checkon 10-25-2020 Clinical Event Note-Post Op Check Clinical Event: Clinical Event Note: TopicPost Op Check Details This is Bharat Manzanares is 55y F s/p POEM. Patient is not having much pain. She is nauseous but has not had any emesis. Patient's TPN is currently running. VS: T 36.5 HR 70 RR 18 BP 112/70 SO2 94% General: lying comfortably in bed, NAD Pulm: breathing comfortably on room air, equal chest rise b/l CV: RRR GI: Abdomen soft, non-tender, non-distended Extremities: MAEx4 Skin: warm, dry, well-perfused Assessment/Plan This is Bharat Manzanares is 55y F s/p POEM. Patient is recovering well post-operatively. Will continue to monitor. -NPO except sips and chips -TPN -Zofran PRN Morales Mckenna MD PGY 1 General Surgery Electronic Signatures: Morales Mckenna ( (Resident)) (Signed 25-Oct-2020 19:13) Authored: Clinical Event Note Last Updated: 25-Oct-2020 19:13 by Morales Mckenna ( (Resident)) Normal [facility] Daily Progress Note-Surgeryo n 10-25-2020 Daily Progress Note-Surgery Service: Surgery Subjective Data: BHARAT MANZANARES is a 55 year old Female who is Hospital Day # 8. Patient examined at bedside. No concerns this morning. Denies chest pain, abdominal pain, nausea, diarrhea, or difficulty breathing. Overnight Events: Patient had an uneventful night. Objective Data: Objective Information: T PRBPSpO2 [id number]% Date/Time10/25 7: 7: 7: 7: 7:51 Range(36C - 36.6C ) (54 - 63 ) (17 - 18 ) (108 - 133 )/ (64 - 80 ) (92% - 95% ) Pain reported at 10/25 0:25: 4 = Moderate Physical Exam by System: Constitutional: Resting comfortable, no distress, alert and cooperative Eyes: EOM grossly intact, clear sclera Head/Neck: Normocephalic, atraumatic Respiratory/Thorax: Breathing comfortably on room air. No respiratory distress. Cardiovascular: No tachycardia. Gastrointestinal: Abdomen nondistended, soft, non-tender. Musculoskeletal: ROM intact in all 4 extremities Neurological: Awake, alert, oriented. Psychological: Appropriate mood and behavior Skin: Warm and dry Medication: Medications: Continuous Medications -------- 1. Lactated Ringers Infusion: 1000 mL IntraVenous 2. TPN Standard- Amino Acids 5 % - Dextrose 15%: 2000 mL IntraVenous Scheduled Medications -------- 1. Fat Emulsion 20% (SMOFLIPID) Infusion: 180 mL IntraVenous Piggyback 2. Fluconazole 400 mg IVPB/ Premixed NS 200 mL: 200 mL IntraVenous Piggyback Every 24 Hours 3. Insulin Lispro Mild Corrective Scale: unit(s) SubCutaneous Every 4 Hours 4. Levothyroxine Injectable: 87.5 microgram(s) IntraVenous Push Daily 5. Nicotine 14 mg/ 24 hour TransDermal: 1 patch TransDermal Every 24 Hours 6. Sodium Chloride 0.9% Injectable Flush: 10 mL IntraVenous Flush Every 12 Hours PRN Medications -------- 1. Albuterol 2.5mg - Ipratropium 0.5 mg/ 3mL Neb Soln: 3 mL Inhalation Every 6 Hours 2. Dextrose 50% in Water Injectable: 25 gram(s) IntraVenous Push Every 15 Minutes 3. Glucagon Injectable: 1 mg IntraMuscular Every 15 Minutes Conditional Medication Orders -------- 1. Perflutren Lipid Microsphere (Activated) 1.3 mL / NaCL 0.9% T.V. 10 mL Injectable: 0.5 mL IntraVenous Push Once Currently Suspended Medications -------- 1. Atorvastatin: 20 mg Oral Daily 2. Haloperidol Lactate Injectable: 2 mg IntraVenous Push Every 12 Hours 3. Ondansetron Injectable: 4 mg IntraVenous Push Every 6 Hours 4. Oxybutynin: 5 mg Oral 3 Times a Day Recent Lab Results: Results: I have reviewed these laboratory results: Complete Blood Count 25-Oct-2020 04:59:00 ResultValue White Blood Cell Count 7.7 Nucleated Erythrocyte Count 0.0 Red Blood Cell Count 3.88 L HGB 11.1 L HCT 33.0 L MCV 85 MCHC 33.6 PLT 216 RDW-CV 15.5 H Renal Function Panel 25-Oct-2020 04:59:00 ResultValue Glucose, Serum 101 H NA 139 K 3.8 CL 100 Bicarbonate, Serum 33 H Anion Gap, Serum 10 BUN 19 CREAT 0.56 GFR-Non >60 GFR- >60 Calcium, Serum 8.0 L Phosphorus, Serum 4.6 ALB 2.4 L Magnesium, Serum 25-Oct-2020 04:59:00 ResultValue Magnesium, Serum 1.65 Assessment and Plan: Code Status: Code StatusFull Code Assessment: Assessment: BHARAT MANZAANRES is a 55 year old Female with a PMH significant for CHF, COPD, T2DM, hypothyroidism, and cerebral palsy who presented to the ED for chronic dysphagia and inability to tolerate solid foods, liquids, or medications. Upper GI series on 10/19 significant for severe narrowing at GE junction without passage of contrast. Based on findings, patient to be transported to [facility] on 10/21 for EGD with manometry and then transferred back to [facility] following procedure. Depending on findings, will consider POEM on Saturday, 10/24. Dr. Ramirez consulted for optimization. Based on bradycardia and telemetry from overnight 10/19, recommended Echo for 10/20, suspecting increased vagal tone leading to achalasia and arrhythmia. Echo significant for EF 60%, no wall motion abnormalities. EKG on 10/19 significant for qtc 594, home haloperidol held, repeat EKG on 10/20 qtc 365. Additionally, TPN started on 10/20 after PICC placement on 10/19. POEM scheduled for 10/[address] Mcknight. Verbal consent obtained from legal guardian, Jessica, for procedures - signed in chart. Plan: Neuro: Tylenol PRN for pain. Psychiatry consulted, holding home Haloperidol in setting of prolonged Qtc. CV: Holding home midodrine at this time. Echo on 10/21 EF 60%. On telemetry. Resp: On room air, IS. RT to evaluate and treat. Fluconazole 400mg IV q24h for esophageal hiro (10/22-) GI: TPN started on 10/20. EGD with manometry on 10/21.NPO for POEM 10/[address] Mcknight. Heme: Will continue to monitor. Endo: A1c 6.1. Continue mild SS. Elevated TSH with (more content not included)... Normal [facility] GLUCOSE-POCTon 10-25-2020 Glucose [Mass/Vol] 130 mg/dL High 74 - 99 [facility] Comment on above: Performed By: #### T 4FRE #### [facility] [address] [place] [address] Glucose [Mass/Vol] 142 mg/dL High 74 - 99 [facility] Comment on above: Performed By: #### R ENAL #### [facility] [address] [place] [address] Glucose [Mass/Vol] 172 mg/dL High 74 - 99 [facility] Comment on above: Performed By: #### T 4FRE #### [facility] [address] [place] [address] Glucose [Mass/Vol] 45 mg/dL Low 74 - 99 [facility] Comment on above: Performed By: #### R ENAL #### [facility] [address] [place] [address] Glucose [Mass/Vol] 109 mg/dL High 74 - 99 [facility] Comment on above: Performed By: #### R ENAL #### [facility] [address] [place] [address] Glucose [Mass/Vol] 96 mg/dL Normal 74 - 99 [facility] Comment on above: Performed By: #### P HOS #### [facility] [address] [place] [address] Glucose [Mass/Vol] 119 mg/dL High 74 - 99 [facility] Comment on above: Performed By: #### P HOS #### [facility] [address] [place] [address] MAGNESIUMon 10-25-2020 Magnesium [Mass/Vol] 1.65 mg/dL Normal 1.60 - 2.40 [facility] Comment on above: Performed By: #### R ENAL #### [facility] [address] [place] [address] Nutrition Therapy-Follow Upo n 10-25-2020 Nutrition Therapy-Follow Up Assessment Subjective/Objective: Note Type: Follow Up Note Authored by: Registered Dietitian Highway Truck [employer] Pager Number: [phone] Nutrition Note: The patient is a 55 year old Female on Hospital Day # 8. Plan is for pt to go to OR today for POEM. Had an EGD with manometry on 10/21. Has been intermittently on a liquid diet and receiving TPN (PICC placed 10/19 and TPN started 10/20). Met with pt who reports that she is looking forward to eating after her surgery. Is very motivated to get back to a normal diet. Objective Information: last wt 59 kg on 10/19 last BM 10/21 Intake Output IV Fluids 1400 mL Urine 1300 mL IV Nutrition 1755 mL Recent Lab Results: Results: I have reviewed these laboratory results: Glucose_POCT Trending View [id number] 07:50:00 25-Oct-2020 03:33:00 24-Oct-2020 23:27:00 24-Oct-2020 19:46:00 24-Oct-2020 16:25:00 24-Oct-2020 11:22:00 24-Oct-2020 07:53:00 [id number] H 96 119 H 105 H 106 H 123 H 106 H Renal Function Panel 25-Oct-2020 04:59:00 ResultValue Glucose, Serum 101 H NA 139 K 3.8 CL 100 Bicarbonate, Serum 33 H Anion Gap, Serum 10 BUN 19 CREAT 0.56 GFR-Non >60 GFR- >60 Calcium, Serum 8.0 L Phosphorus, Serum 4.6 ALB 2.4 L Magnesium, Serum 25-Oct-2020 04:59:00 ResultValue Magnesium, Serum 1.65 Current Active Medications/PN: Levothyroxine Injectable, (SYNTHROID) DOSE = 87.5 microgram(s) IntraVenous Push Daily Notes from Pharmacy: Dilute 100 mcg vial with 5 mL Normal Saline. Final Concentration 20 mcg/ mL. Use Immediately, 18-Oct-2020 Fat Emulsion 20% (SMOFLIPID) Infusion, 180 mL (SMOFLIPID) ( every 1 day: 20:00 ) at 15 mL/hr, 20-Oct-2020 TPN Standard- Amino Acids 5 % - Dextrose 15%, 2,000 mL Multivitamins 10 mL/Day Trace Elements 1 mL/Day Standard Electrolytes in TPN: Sodium 35 mEq/ L Acetate 80 mEq/ L Potassium 30 mEq/ L Chloride 39 mEq/ L Magnesium 5 mEq/ L Calcium 4.5 mEq/ L Phosphate 15 mmol/ L IntraVenous per Central Line Infuse at: 65 mL/hr Clinician Notes: Central Line Start at 25 ml/hr and increase by 20 ml daily until goal rate of 65 ml/hr is reached., 20-Oct-2020 Insulin Lispro Mild Corrective Scale, Give SubCutaneous Every 4 Hours Hypoglycemia Protocol Call LIP unit(s) if Blood Glucose is between 0 - 70 0 unit(s) if Blood Glucose is between 71 - 150 2 unit(s) if Blood Glucose is between 151 - 200 4 unit(s) if Blood Glucose is between 201 - 250 6 unit(s) if Blood Glucose is between 251 - 300 8 unit(s) if Blood Glucose is between 301 - 350 10 unit(s) if Blood Glucose is between 351 - 400 Notify Provider unit(s) if Blood Glucose is greater than 400 Notes from Pharmacy: [facility], 21-Oct-2020 Lactated Ringers Infusion, IV Bag Volume = 1,000 mL Run at: 50 mL/hr IntraVenous , 22-Oct-2020 Nutrition Orders: NPO, Routine . Special Instructions: sips okay, 22-Oct-2020 Nutrition Focused Physical Findings: Other Physical Findings: Edema: +1, bilat LE Estimated Needs: kcals/day: 2405-4238 (25-30 kcal/kg) gms protein/day: 75-90 (1.2-1.5 g/kg) mL fluid/day: 1 ml/kcal Nutrition Diagnosis: Diagnosis1 ongoing. Dx: Severe protein calorie malnutrition. related to altered GI function as evidenced by severe muscle loss, severe subcutaneous fat loss, and wt loss of 8.5% x2 months. Nutrition Interventions: Individualized Nutrition Prescription Provided for: diet, parenteral nutrition Ordered Supplements: resume oral supplements once diet readvanced post op Nutrition Goals: Goals: Nutrition Therapy: less than 5 days NPO/clear liquids, nutrition support is meeting 75% of nutrient needs, Blood Glucose 80-180 mg/dl, electrolytes within normal limits Nutrition Goal Outcomes: goal met Outcomes Summary: Nutrition Therapy Progress: Nutrition Therapy: improving Outcome Summary: Nutritional Therapy: severe protein calorie malnutrition NUTRITION RECOMMENDATIONS: Recommendations: 1) Resume diet post op per surgery 2) Continue with TPN as outlined below 3) Consider feeding 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 Multivitamin and Trace elements. 20% Lipids 250 mL run at 15 mL/hr x 12/hr = 180 mL/day Choose SMOF. Goal - Parenteral Nutrition/Lipids will provide: Total kcals/day 1468. Total protein/day (gm) 78. Total volume (ml) 1740. Labs/Monitors: Blood Glucose frequency: every 4 hrs Weight: daily Additional Labs: renal panel and magnesium daily, replete electrolytes prn, triglycerides: check now and each week, LFT's check now and each week Dietitian Monitoring and Evaluation Plan: Monitoring and Evaluation Plan: digestive functio (more content not included)... Normal [facility] Operative Reports - [facility] [place] [address] Patient Name: BHARAT MANZANARES : 1965 Date of Service: 10/25/2020 Patient Location: [place] [address] Patient Type: I Surgeon: Mahesh Mcknight MD Report Type: Operative Reports PREOPERATIVE DIAGNOSIS: Achalasia. POSTOPERATIVE DIAGNOSIS: Achalasia. OPERATION/PROCEDURE: Peroral endoscopic myotomy. SURGEON: Mahesh Mcknight MD REFRIGERATOR REPAIR TECHNICIAN(S): Alison Dangelo MD ANESTHESIA: General endotracheal. COMPLICATIONS: None. INDICATIONS: The patient is a 55-year-old female with longstanding history of progressive dysphagia and malnutrition and identified manometrically to have type 1 achalasia. She is now taken to the operating room for peroral endoscopic myotomy after the risks, benefits, alternatives, and complications were explained at length to the patient and [id number]. She was now taken to the operating room for the procedure. PROCEDURE: The patient was taken to the operating room and placed on the operating table in supine position. Following induction of general anesthetic, the patient was intubated endotracheally. Time-out was performed per protocol, and she received preoperative IV antibiotics but no DVT prophylaxis was deemed necessary. Following intubation, endoscope mounted with overtube was advanced into the cervical esophagus. There was a moderate amount of frothy salivary fluid, but no food debris. The esophagus was quite dilated with very thickened mucosa. There was no obvious candidiasis as had been seen last week during her upper endoscopy. The EG junction was identified and was quite tight, but able to be traversed. Retroflexed view showed no evidence of inflammatory or neoplastic process. Overtube was advanced into the cervical esophagus. The endoscope was withdrawn and the oblique soft EMR cap was placed. EG junction was then reassessed and measured at 41 cm from the incisors. Starting at 14 cm proximal to this, at 27 cm from the incisors, the anterior wall of the esophagus was confirmed with instillation of methylene blue into the esophagus and watching it double bass player posteriorly. The patient was in a supine position. On the anterior wall, approximately 10 mL of methylene blue with epinephrine and dextrose solution were injected to make a submucosal wheal. A 2 cm longitudinal mucous sinus was created. The endoscope was advanced into the submucosal space and advanced onto the gastric wall for approximately 2 to 3 cm, confirmed by retroflexed view in the gastric lumen. Intermittent injection of methylene blue was performed in the submucosal tunnel to differentiate the mucosa from the muscle. Starting 3 cm inferior to the inferior aspect of the mucosotomy, circular muscle myotomy was performed with division all the way down to the end of the submucosal tunnel. Longitudinal fibers did split spontaneously in multiple areas. The endoscope was returned to the chitimacha lumen, and the EG junction was now widely gaping and easily traversable. There was no evidence of mucosal injury or bleeding. The endoscope was returned to the submucosal tunnel, and there was also no evidence of bleeding in the tunnel. Mucosotomy was then closed with multiple endoscopic clips. It should be noted that due to pneumoperitoneum, a 14-gauge Angiocath was advanced into the right upper quadrant after the abdominal wall was prepped. Release of pneumoperitoneum occurred. The catheter was withdrawn at the completion of the procedure, and a Band-Aid was placed at this site. At completion of the procedure and closure of mucosotomy, stomach was evacuated of insufflated CO2 and the endoscope was withdrawn. The EG junction, as stated, was widely patent without evidence of mucosal injury. Overtube was withdrawn without evidence of mucosal injury. The patient was extubated in the operating room and transported to the recovery room in stable condition. Dr. Alison Dangelo served as the first line supervisor as there was no skilled surgical rn was available for this complex procedure. Mahesh Mcknight MD EST TT: 10/26/2020 04:03 AM EST DICTATION NUMBER: [id number] ИРИНА JOB NUMBER: [id number] CC: Electronic Signatures: Mahesh Mcknight () (Signed on 28-Oct-2020 08:32) Authored Unsigned, Draft (SYS GENERATED) (Entered on 26-Oct-2020 04:03) Entered Last Updated: 28-Oct-2020 08:32 by Mahesh Mcknight) Normal [facility] Preop Checkliston 10-25-2020 Preop Checklist Preop Checklist: Preop Checklist: Arrival [id number] Procedure Typepoem Temperature C36 degrees C Temperature F96.8 degrees F Heart Rate69 beats per minute Respiratory Rate18 breath per minute Blood Pressure Omrbxcza875 mm/Hg Blood Pressure Epfxaejnj30 mm/Hg NPO [id number] 00:00 ID Band Onyes Allergy Bandno known allergies Consent Signedyes H&P Completeyes Anesthesia Assessment Completedpending SCD's Appliedsent to OR Valuables Securedplaced in locker Cardiovascular Assessment: Apicalregular Radial Pulsespalpable Extremitieswarm Respiratory Assessment: Respirationsunlabored regular Air Exchangegood, equal Neurological Assessment: Level of Consciousnessalert, oriented Mobilitymoves all extremities Able to Express Selfyes Age Appropriateyes Emotional Statuscalm Skin Assessment: Skin Site(s) with Current Compromisenone Preop Education: Surgical Site Infection Preventionyes Pain Scales and Managementyes Language / Communication: Language / CommunicationEnglish Electronic Signatures: Penny Shen) (Signed 25-Oct-2020 12:00) Authored: Preop Checklist Last Updated: 25-Oct-2020 12:00 by Penny Shen (SHANA) Normal [facility] RENAL FUNCTION PANELon 10-25 Albumin [Mass/Vol] 2.4 g/dL Low 3.4 - 5.0 [facility] Comment on above: Performed By: #### T 4FRE #### [facility] [address] [place] [address] Anion gap [Moles/Vol] 10 mmol/L Normal 10 - 20 [facility] Comment on above: Performed By: #### T 4FRE #### [facility] [address] [place] [address] Calcium [Mass/Vol] 8.0 mg/dL Low 8.6 - 10.6 [facility] Comment on above: Performed By: #### T 4FRE #### [facility] [address] [place] [address] Chloride [Moles/Vol] 100 mmol/L Normal 98 - 107 [facility] Comment on above: Performed By: #### T 4FRE #### [facility] [address] [place] [address] Creatinine [Mass/Vol] 0.56 mg/dL Normal 0.50 - 1.05 [facility] Comment on above: Performed By: #### T 4FRE #### [facility] [address] [place] [address] GFR- AM. >60 Normal >60 [facility] Comment on above: Result Comment: CALC ULATIONS OF ESTIMATED GFR ARE PERFORMED USING THE MDRD STUDY EQUATION FOR THE IDMS-TRACEABLE CREATININE METHODS. CLIN CHEM 2007;53:766-72 Performed By: #### T 4FRE #### [facility] [address] [place] [address] GFR-NON AM. >60 Normal >60 [facility] Comment on above: Performed By: #### T 4FRE #### [facility] [address] [place] [address] Glucose [Mass/Vol] 101 mg/dL High 74 - 99 [facility] Comment on above: Performed By: #### T 4FRE #### [facility] [address] [place] [address] HCO3 (Bld) [Moles/Vol] 33 mmol/L High 21 - 32 [facility] Comment on above: Performed By: #### T 4FRE #### [facility] [address] [place] [address] Phosphate [Mass/Vol] 4.6 mg/dL Normal 2.5 - 4.9 [facility] Comment on above: Result Comment: The performance characteristics of phosphorus testing in heparinized plasma have been validated by the individual laboratory site where testing is performed. Testing on heparinized plasma is not approved by the FDA; however, such approval is not necessary. Performed By: #### T 4FRE #### [facility] [address] [place] [address] Potassium [Moles/Vol] 3.8 mmol/L Normal 3.5 - 5.3 [facility] Comment on above: Performed By: #### T 4FRE #### [facility] [address] [place] [address] Sodium [Moles/Vol] 139 mmol/L Normal 136 - 145 [facility] Comment on above: Performed By: #### T 4FRE #### [facility] [address] [place] [address] Urea nitrogen [Mass/Vol] 19 mg/dL Normal 6 - 23 [facility] Comment on above: Performed By: #### T 4FRE #### [facility] [address] [place] [address] CBCon 10-24-2020 Erythrocyte distribution width (RBC) [Ratio] 15.3 % High 11.5 - 14.5 [facility] Comment on above: Performed By: #### C BC #### [facility] [address] [place] [address] Hematocrit (Bld) [Volume fraction] 34.9 % Low 36.0 - 46.0 [facility] Comment on above: Performed By: #### C BC #### [facility] [address] [place] [address] Hemoglobin (Bld) [Mass/Vol] 10.9 g/dL Low 12.0 - 16.0 [facility] Comment on above: Performed By: #### C BC #### [facility] [address] [place] [address] MCHC (RBC) [Mass/Vol] 31.2 g/dL Low 32.0 - 36.0 [facility] Comment on above: Performed By: #### C BC #### [facility] [address] [place] [address] MCV (RBC) [Entitic vol] 89 fL Normal 80 - 100 [facility] Comment on above: Performed By: #### C BC #### [facility] [address] [place] [address] NUCLEATED RBC 0.0 /100 WBC Normal 0.0-0.0 [facility] Comment on above: Performed By: #### C BC #### [facility] [address] [place] [address] Platelets (Bld) [#/Vol] 188 10*3/uL Normal 150 - 450 [facility] Comment on above: Performed By: #### C BC #### [facility] [address] [place] [address] RBC 3.92 x10E12/L Low 4.00 - 5.20 [facility] Comment on above: Performed By: #### C BC #### [facility] [address] [place] [address] WBC (Bld) [#/Vol] 8.4 10*3/uL Normal 4.4 - 11.3 [facility] Comment on above: Performed By: #### C BC #### [facility] [address] [place] [address] Daily Progress Note - Psychi atryon 10-24-2020 Daily Progress Note - Psychiatry Subjective Data: BHARAT MANZANARES is a 55 year old Female who is Hospital Day # 7. Additional Information: Patient interviewed at bedside; reported transient anxiety related to upcoming surgical procedure; though ultimately very optimistic and looking forward to relief of symptoms. Denied symptoms of psychosis. Denied symptoms of depression or anxiety. No thoughts of harm to self; patient feels safe/well-cared for. Objective: Objective Information: T PRBPSpO2 [id number]/8194% Date/Time5/17 4: 4: 4: 4: 4:09 Range(36.6C - 37.2C ) (54 - 65 ) (16 - 19 ) (97 - 130 )/ (60 - 81 ) (92% - 95% ) Highest temp of 37.2 C was recorded at 10/23 19:59 Mental Status Exam: General: Calm and in no acute distress Appearance: Female, appearing as older than stated age, dressed in hospital attire, glasses. Attitude: Calm, communicative and engaged Behavior: Appropriate eye contact. Motor Activity: No agitation or retardation. No EPS/TD. Normal gait. Speech: Regular rate, rhythm, volume and tone, spontaneous, fluent. Mood: Described a little anxiety but stated that her mood is good overall Affect: Appropriate with full range. Congruent to mood. Thought Process: Organized, linear, goal directed. Associations are logical. Thought Content: Does not endorse suicidal or homicidal ideation, no delusions elicited. Thought Perception: Does not endorse auditory or visual hallucinations, does not appear to be responding to hallucinatory stimuli. Cognition: Alert, oriented x3. No deficits noted. Adequate fund of knowledge. No deficit in recent and remote memory. No deficits in attention, concentration or language. Insight: Good, as patient recognizes symptoms of illness and need for recommended treatments. Judgment: Can make reasonable decisions about ordinary activities of daily living and necessary medical care recommendations. Medications: Continuous Medications -------- 1. Lactated Ringers Infusion: 1000 mL IntraVenous 2. TPN Standard- Amino Acids 5 % - Dextrose 15%: 2000 mL IntraVenous Scheduled Medications -------- 1. Fat Emulsion 20% (SMOFLIPID) Infusion: 180 mL IntraVenous Piggyback 2. Fluconazole 400 mg IVPB/ Premixed NS 200 mL: 200 mL IntraVenous Piggyback Every 24 Hours 3. Insulin Lispro Mild Corrective Scale: unit(s) SubCutaneous Every 4 Hours 4. Levothyroxine Injectable: 87.5 microgram(s) IntraVenous Push Daily 5. Nicotine 14 mg/ 24 hour TransDermal: 1 patch TransDermal Every 24 Hours 6. Sodium Chloride 0.9% Injectable Flush: 10 mL IntraVenous Flush Every 12 Hours PRN Medications -------- 1. Albuterol 2.5mg - Ipratropium 0.5 mg/ 3mL Neb Soln: 3 mL Inhalation Every 6 Hours 2. Dextrose 50% in Water Injectable: 25 gram(s) IntraVenous Push Every 15 Minutes 3. Glucagon Injectable: 1 mg IntraMuscular Every 15 Minutes Conditional Medication Orders -------- 1. Perflutren Lipid Microsphere (Activated) 1.3 mL / NaCL 0.9% T.V. 10 mL Injectable: 0.5 mL IntraVenous Push Once Currently Suspended Medications -------- 1. Atorvastatin: 20 mg Oral Daily 2. Haloperidol Lactate Injectable: 2 mg IntraVenous Push Every 12 Hours 3. Ondansetron Injectable: 4 mg IntraVenous Push Every 6 Hours 4. Oxybutynin: 5 mg Oral 3 Times a Day Recent Lab Results: Results: I have reviewed these laboratory results in [facility]: Coronavirus 2019, Screen Asymptomatic 23-Oct-2020 13:01:00 ResultValue Fluid Source Nasal, Nasopharyngeal Coronavirus 2019,PCR NOT DETECTED Reference Range: Not Detected . This assay is designed to detect the ORF1ab and/or S genes of SARS-CoV-2 via nucleic acid amplification. A Not Detected result does not preclude 2019-nCoV infection since the adequacy of sample ken Complete Blood Count Trending View [id number] 04:15:00 22-Oct-2020 06:01:00 White Blood Cell Count11.5 H 14.8 H Nucleated Erythrocyte Count0.0 0.0 Red Blood Cell Count4.05 3.92 L HGB11.3 L 11.0 L HCT35.4 L 33.5 L MCV87 85 MCHC31.9 L 32.8 JRD299 167 RDW-CV15.2 H 15.0 H Renal Function Panel 23-Oct-2020 04:15:00 ResultValue Glucose, Serum 93 NA 141 K 3.8 CL 103 Bicarbonate, Serum 35 H Anion Gap, Serum 7 L BUN 11 CREAT 0.54 GFR-Non >60 GFR- >60 Calcium, Serum 7.9 L Phosphorus, Serum 3.7 ALB 2.3 L Magnesium, Serum 23-Oct-2020 04:15:00 ResultValue Magnesium, Serum 1.77 Basic Metabolic Panel 22-Oct-2020 06:01:00 ResultValue Glucose, Serum 69 L NA 141 K 3.2 L CL 102 Bicarbonate, Serum 34 H Anion Gap, Serum 8 L BUN 8 CREAT 0.58 GFR-Non >60 GFR- >60 Calcium, Serum 7.5 L TSH with Reflex to Free T4 if Abnormal 22-Oct-2020 06:01:00 ResultValue Thyroid Stimulating (more content not included)... Normal [facility] Daily Progress Note-Surgeryo n 10-24-2020 Daily Progress Note-Surgery Service: Surgery Subjective Data: BHARAT MANZANARES is a 55 year old Female who is Hospital Day # 7. No overnight events. Patient examined at bedside. No complaints this morning. Denies chest pain, abdominal pain, nausea, emesis, or diarrhea. Overnight Events: Patient had an uneventful night. Objective Data: Objective Information: T PRBPSpO2 [id number]/8195% Date/Time10/24 7: 7: 7: 7: 7:53 Range(36.5C - 37.2C ) (54 - 65 ) (16 - 19 ) (97 - 130 )/ (60 - 81 ) (92% - 95% ) Highest temp of 37.2 C was recorded at 10/23 19:59 Pain reported at 10/23 20:00: 0 = None Physical Exam by System: Constitutional: Resting comfortable, no distress, alert and cooperative Eyes: EOM grossly intact, clear sclera Head/Neck: Normocephalic, atraumatic Respiratory/Thorax: Breathing comfortably on room air. No respiratory distress. Cardiovascular: No tachycardia. Gastrointestinal: Abdomen nondistended, soft, non-tender. Musculoskeletal: ROM intact in all 4 extremities Neurological: Awake, alert, oriented. Psychological: Appropriate mood and behavior Skin: Warm and dry Medication: Medications: Continuous Medications -------- 1. Lactated Ringers Infusion: 1000 mL IntraVenous 2. TPN Standard- Amino Acids 5 % - Dextrose 15%: 2000 mL IntraVenous Scheduled Medications -------- 1. Fat Emulsion 20% (SMOFLIPID) Infusion: 180 mL IntraVenous Piggyback 2. Fluconazole 400 mg IVPB/ Premixed NS 200 mL: 200 mL IntraVenous Piggyback Every 24 Hours 3. Insulin Lispro Mild Corrective Scale: unit(s) SubCutaneous Every 4 Hours 4. Levothyroxine Injectable: 87.5 microgram(s) IntraVenous Push Daily 5. Nicotine 14 mg/ 24 hour TransDermal: 1 patch TransDermal Every 24 Hours 6. Sodium Chloride 0.9% Injectable Flush: 10 mL IntraVenous Flush Every 12 Hours PRN Medications -------- 1. Albuterol 2.5mg - Ipratropium 0.5 mg/ 3mL Neb Soln: 3 mL Inhalation Every 6 Hours 2. Dextrose 50% in Water Injectable: 25 gram(s) IntraVenous Push Every 15 Minutes 3. Glucagon Injectable: 1 mg IntraMuscular Every 15 Minutes Conditional Medication Orders -------- 1. Perflutren Lipid Microsphere (Activated) 1.3 mL / NaCL 0.9% T.V. 10 mL Injectable: 0.5 mL IntraVenous Push Once Currently Suspended Medications -------- 1. Atorvastatin: 20 mg Oral Daily 2. Haloperidol Lactate Injectable: 2 mg IntraVenous Push Every 12 Hours 3. Ondansetron Injectable: 4 mg IntraVenous Push Every 6 Hours 4. Oxybutynin: 5 mg Oral 3 Times a Day Recent Lab Results: Results: I have reviewed these laboratory results: Complete Blood Count 24-Oct-2020 05:33:00 ResultValue White Blood Cell Count 8.4 Nucleated Erythrocyte Count 0.0 Red Blood Cell Count 3.92 L HGB 10.9 L HCT 34.9 L MCV 89 MCHC 31.2 L PLT 188 RDW-CV 15.3 H Renal Function Panel 24-Oct-2020 05:33:00 ResultValue Glucose, Serum 115 H NA 141 K 3.7 CL 101 Bicarbonate, Serum 36 H Anion Gap, Serum 8 L BUN 16 CREAT 0.53 GFR-Non >60 GFR- >60 Calcium, Serum 8.0 L Phosphorus, Serum 4.5 ALB 2.3 L Magnesium, Serum 24-Oct-2020 05:33:00 ResultValue Magnesium, Serum 1.69 Assessment and Plan: Code Status: Code StatusFull Code Assessment: Assessment: BHARAT MANZANARES is a 55 year old Female with a PMH significant for CHF, COPD, T2DM, hypothyroidism, and cerebral palsy who presented to the ED for chronic dysphagia and inability to tolerate solid foods, liquids, or medications. Upper GI series on 10/19 significant for severe narrowing at GE junction without passage of contrast. Based on findings, patient to be transported to [facility] on 10/21 for EGD with manometry and then transferred back to [facility] following procedure. Depending on findings, will consider POEM on Saturday, 10/24. Dr. Ramirez consulted for optimization. Based on bradycardia and telemetry from overnight 10/19, recommended Echo for 10/20, suspecting increased vagal tone leading to achalasia and arrhythmia. Echo significant for EF 60%, no wall motion abnormalities. EKG on 10/19 significant for qtc 594, home haloperidol held, repeat EKG on 10/20 qtc 365. Additionally, TPN started on 10/20 after PICC placement on 10/19. POEM scheduled for 10/[address] Mcknight. Verbal consent obtained from legal guardian, Jessica, for procedures - signed in chart. Plan: Neuro: Tylenol PRN for pain. Psychiatry consulted, holding home Haloperidol in setting of prolonged Qtc. CV: Holding home midodrine at this time. Echo on 10/21 EF 60%. On telemetry. Resp: On room air, IS. RT to evaluate and treat. Fluconazole 400mg IV q24h for esophageal hiro (10/22-) GI: TPN started on 10/20. EGD with manometry on 10/21. NPO, sips okay. NPO at midnight for POEM 10/25. Heme: W (more content not included)... Normal [facility] GLUCOSE-POCTon 10-24-2020 Glucose [Mass/Vol] 105 mg/dL High 74 - 99 [facility] Comment on above: Performed By: #### T 4FRE #### [facility] [address] [place] [address] Glucose [Mass/Vol] 106 mg/dL High 74 - 99 [facility] Comment on above: Performed By: #### C BC #### [facility] [address] [place] [address] Glucose [Mass/Vol] 123 mg/dL High 74 - 99 [facility] Comment on above: Performed By: #### T 4FRE #### [facility] [address] [place] [address] Glucose [Mass/Vol] 106 mg/dL High 74 - 99 [facility] Comment on above: Performed By: #### R ENAL #### [facility] [address] [place] [address] Glucose [Mass/Vol] 110 mg/dL High 74 - 99 [facility] Comment on above: Performed By: #### R ENAL #### [facility] [address] [place] [address] Glucose [Mass/Vol] 107 mg/dL High 74 - 99 [facility] Comment on above: Performed By: #### M G #### [facility] [address] [place] [address] MAGNESIUMon 10-24-2020 MAGNESIUM Canceled Normal [facility] Comment on above: Order Comment: TEST MAGNESIUM WAS CANCELLED, 10/24/2020 07:41 NO SPECIMEN RECEIVED IN LAB. Performed By: #### C BC #### [facility] [address] [place] [address] Magnesium [Mass/Vol] 1.69 mg/dL Normal 1.60 - 2.40 [facility] Comment on above: Performed By: #### R ENAL #### [facility] [address] [place] [address] RENAL FUNCTION PANELon 10-24 Albumin [Mass/Vol] 2.3 g/dL Low 3.4 - 5.0 [facility] Comment on above: Performed By: #### C OVSC #### [place] [address] [place] [address] Anion gap [Moles/Vol] 8 mmol/L Low 10 - 20 [facility] Comment on above: Performed By: #### C OVSC #### [facility] [address] [place] [address] Calcium [Mass/Vol] 8.0 mg/dL Low 8.6 - 10.6 [facility] Comment on above: Performed By: #### C OVSC #### [facility] [address] [place] [address] Chloride [Moles/Vol] 101 mmol/L Normal 98 - 107 [facility] Comment on above: Performed By: #### C OVSC #### [facility] [address] [place] [address] Creatinine [Mass/Vol] 0.53 mg/dL Normal 0.50 - 1.05 [facility] Comment on above: Performed By: #### C OVSC #### [facility] [address] [place] [address] GFR- AM. >60 Normal >60 [facility] Comment on above: Result Comment: CALC ULATIONS OF ESTIMATED GFR ARE PERFORMED USING THE MDRD STUDY EQUATION FOR THE IDMS-TRACEABLE CREATININE METHODS. CLIN CHEM 2007;53:766-72 Performed By: #### C OVSC #### [facility] [address] [place] [address] GFR-NON AM. >60 Normal >60 [facility] Comment on above: Performed By: #### C OVSC #### [facility] [address] [place] [address] Glucose [Mass/Vol] 115 mg/dL High 74 - 99 [facility] Comment on above: Performed By: #### C OVSC #### [facility] [address] [place] [address] HCO3 (Bld) [Moles/Vol] 36 mmol/L High 21 - 32 [facility] Comment on above: Performed By: #### C OVSC #### [facility] [address] [place] [address] Phosphate [Mass/Vol] 4.5 mg/dL Normal 2.5 - 4.9 [facility] Comment on above: Result Comment: The performance characteristics of phosphorus testing in heparinized plasma have been validated by the individual laboratory site where testing is performed. Testing on heparinized plasma is not approved by the FDA; however, such approval is not necessary. Performed By: #### C OVSC #### [facility] [address] [place] [address] Potassium [Moles/Vol] 3.7 mmol/L Normal 3.5 - 5.3 [facility] Comment on above: Performed By: #### C OVSC #### [facility] [address] [place] [address] Sodium [Moles/Vol] 141 mmol/L Normal 136 - 145 [facility] Comment on above: Performed By: #### C OVSC #### [facility] [address] [place] [address] Urea nitrogen [Mass/Vol] 16 mg/dL Normal 6 - 23 [facility] Comment on above: Performed By: #### C OVSC #### [facility] [address] [place] [address] BASIC METABOLIC PANELon 10-08 ANION GAP Canceled Normal [facility] Comment on above: Order Comment: TEST BASIC METABOLIC PANEL WAS CANCELLED, 10/23/2020 08:38 DUPLICATE ORDER. Performed By: #### B MP #### [facility] [address] [place] [address] Order Comment: TEST RENAL FUNCTION PANEL WAS CANCELLED, 10/23/2020 04:00 Performed By: #### M G #### [facility] [address] [place] [address] BICARBONATE Canceled Normal [facility] Comment on above: Order Comment: TEST BASIC METABOLIC PANEL WAS CANCELLED, 10/23/2020 08:38 DUPLICATE ORDER. Performed By: #### B MP #### [facility] [address] [place] [address] Order Comment: TEST RENAL FUNCTION PANEL WAS CANCELLED, 10/23/2020 04:00 Performed By: #### M G #### [facility] [address] [place] [address] CALCIUM Canceled Normal [facility] Comment on above: Order Comment: TEST BASIC METABOLIC PANEL WAS CANCELLED, 10/23/2020 08:38 DUPLICATE ORDER. Performed By: #### B MP #### [facility] [address] [place] [address] Order Comment: TEST RENAL FUNCTION PANEL WAS CANCELLED, 10/23/2020 04:00 Performed By: #### M G #### [facility] [address] [place] [address] CHLORIDE Canceled Normal [facility] Comment on above: Order Comment: TEST BASIC METABOLIC PANEL WAS CANCELLED, 10/23/2020 08:38 DUPLICATE ORDER. Performed By: #### B MP #### [facility] [address] [place] [address] Order Comment: TEST RENAL FUNCTION PANEL WAS CANCELLED, 10/23/2020 04:00 Performed By: #### M G #### [facility] [address] [place] [address] CREATININE Canceled Normal [facility] Comment on above: Order Comment: TEST BASIC METABOLIC PANEL WAS CANCELLED, 10/23/2020 08:38 DUPLICATE ORDER. Performed By: #### B MP #### [facility] [address] [place] [address] Order Comment: TEST RENAL FUNCTION PANEL WAS CANCELLED, 10/23/2020 04:00 Performed By: #### M G #### [facility] [address] [place] [address] GFR- AM. Canceled Normal [facility] Comment on above: Order Comment: TEST BASIC METABOLIC PANEL WAS CANCELLED, 10/23/2020 08:38 DUPLICATE ORDER. Result Comment: CALC ULATIONS OF ESTIMATED GFR ARE PERFORMED USING THE MDRD STUDY EQUATION FOR THE IDMS-TRACEABLE CREATININE METHODS. CLIN CHEM 2007;53:766-72 Performed By: #### B MP #### [facility] [address] [place] [address] Order Comment: TEST RENAL FUNCTION PANEL WAS CANCELLED, 10/23/2020 04:00 Performed By: #### M G #### [facility] [address] [place] [address] GFR-NON AM. Canceled Normal [facility] Comment on above: Order Comment: TEST BASIC METABOLIC PANEL WAS CANCELLED, 10/23/2020 08:38 DUPLICATE ORDER. Performed By: #### B MP #### [facility] [address] [place] [id number] Order Comment: TEST RENAL FUNCTION PANEL WAS CANCELLED, 10/23/2020 04:00 Performed By: #### M G #### [facility] [address] [place] [address] GLUCOSE Canceled Normal [facility] Comment on above: Order Comment: TEST BASIC METABOLIC PANEL WAS CANCELLED, 10/23/2020 08:38 DUPLICATE ORDER. Performed By: #### B MP #### [facility] [address] [place] [id number] Order Comment: TEST RENAL FUNCTION PANEL WAS CANCELLED, 10/23/2020 04:00 Performed By: #### M G #### [facility] [address] [place] [address] POTASSIUM Canceled Normal [facility] Comment on above: Order Comment: TEST BASIC METABOLIC PANEL WAS CANCELLED, 10/23/2020 08:38 DUPLICATE ORDER. Performed By: #### B MP #### [facility] [address] [place] [address] Order Comment: TEST RENAL FUNCTION PANEL WAS CANCELLED, 10/23/2020 04:00 Performed By: #### M G #### [facility] [address] [place] [id number] SODIUM Canceled Normal [facility] Comment on above: Order Comment: TEST BASIC METABOLIC PANEL WAS CANCELLED, 10/23/2020 08:38 DUPLICATE ORDER. Performed By: #### B MP #### [facility] [address] [place] [address] Order Comment: TEST RENAL FUNCTION PANEL WAS CANCELLED, 10/23/2020 04:00 Performed By: #### M G #### [facility] [address] [place] [address] UREA NITROGEN Canceled Normal [facility] Comment on above: Order Comment: TEST BASIC METABOLIC PANEL WAS CANCELLED, 10/23/2020 08:38 DUPLICATE ORDER. Performed By: #### B MP #### [facility] [address] [place] [address] Order Comment: TEST RENAL FUNCTION PANEL WAS CANCELLED, 10/23/2020 04:00 Performed By: #### M G #### [facility] [address] [place] [address] CBCon 10-23-2020 Erythrocyte distribution width (RBC) [Ratio] 15.2 % High 11.5 - 14.5 [facility] Comment on above: Performed By: #### C BC #### [facility] [address] [place] [address] Hematocrit (Bld) [Volume fraction] 35.4 % Low 36.0 - 46.0 [facility] Comment on above: Performed By: #### C BC #### [facility] [address] [place] [address] Hemoglobin (Bld) [Mass/Vol] 11.3 g/dL Low 12.0 - 16.0 [facility] Comment on above: Performed By: #### C BC #### [facility] [address] [place] [address] MCHC (RBC) [Mass/Vol] 31.9 g/dL Low 32.0 - 36.0 [facility] Comment on above: Performed By: #### C BC #### [facility] [address] [place] [address] MCV (RBC) [Entitic vol] 87 fL Normal 80 - 100 [facility] Comment on above: Performed By: #### C BC #### [facility] [address] [place] [address] NUCLEATED RBC 0.0 /100 WBC Normal 0.0-0.0 [facility] Comment on above: Performed By: #### C BC #### [facility] [address] [place] [address] Platelets (Bld) [#/Vol] 167 10*3/uL Normal 150 - 450 [facility] Comment on above: Performed By: #### C BC #### [facility] [address] [place] [address] RBC 4.05 x10E12/L Normal 4.00 - 5.20 [facility] Comment on above: Performed By: #### C BC #### [facility] [address] [place] [address] WBC (Bld) [#/Vol] 11.5 10*3/uL High 4.4 - 11.3 [facility] Comment on above: Performed By: #### C BC #### [facility] [address] [place] [address] HCT Canceled Normal [facility] Comment on above: Order Comment: TEST CBC WAS CANCELLED, 10/23/2020 04:00 Performed By: #### C OVSC #### [facility] [address] [place] [address] HGB Canceled Normal [facility] Comment on above: Order Comment: TEST CBC WAS CANCELLED, 10/23/2020 04:00 Performed By: #### C OVSC #### [facility] [address] [place] [address] MCHC Canceled Normal [facility] Comment on above: Order Comment: TEST CBC WAS CANCELLED, 10/23/2020 04:00 Performed By: #### C OVSC #### [facility] [address] [place] [address] MCV Canceled Normal [facility] Comment on above: Order Comment: TEST CBC WAS CANCELLED, 10/23/2020 04:00 Performed By: #### C OVSC #### [facility] [address] [place] [address] NUCLEATED RBC Canceled Normal [facility] Comment on above: Order Comment: TEST CBC WAS CANCELLED, 10/23/2020 04:00 Performed By: #### C OVSC #### [facility] [address] [place] [address] PLT Canceled Normal [facility] Comment on above: Order Comment: TEST CBC WAS CANCELLED, 10/23/2020 04:00 Performed By: #### C OVSC #### [facility] [address] [place] [address] RBC Canceled Normal [facility] Comment on above: Order Comment: TEST CBC WAS CANCELLED, 10/23/2020 04:00 Performed By: #### C OVSC #### [facility] [address] [place] [address] RDW-CV Canceled Normal [facility] Comment on above: Order Comment: TEST CBC WAS CANCELLED, 10/23/2020 04:00 Performed By: #### C OVSC #### [facility] [address] [place] [address] WBC Canceled Normal [facility] Comment on above: Order Comment: TEST CBC WAS CANCELLED, 10/23/2020 04:00 Performed By: #### C OVSC #### [facility] [address] [place] [address] CORONAVIRUS 2019, SCREEN ASY MPTOMATICon 10-23-2020 SARS-CoV-2 (COVID-19) RNA CYNTHIA+probe Ql (Unsp spec) Not detected Normal Not Detected [facility] Comment on above: Result Comment: . This assay is designed to detect the ORF1ab and/or S genes of SARS-CoV-2 via nucleic acid amplification. A Not Detected result does not preclude 2019-nCoV infection since the adequacy of sample collection and/or low viral burden may result in presence of viral nucleic acids below the clinical sensitivity of this test method. Fact sheet for providers: www.fda.gov/media/265072/download Fact sheet for patients: www.fda.gov/media/799419/download This test has received FDA Emergency Use Authorization (EUA) and has been verified by [facility] ([facility]). This test is only authorized for the duration of time that circumstances exist to justify the authorization of the emergency use of in vitro diagnostic tests for the detection of SARS-CoV-2 virus and/or diagnosis of COVID-19 infection under section 564(b)(1) of the Act, 21 U.S.C. 360bbb-3(b)(1), unless the authorization is terminated or revoked sooner. [facility] is certified under CLIA-88 as qualified to perform high complexity testing. Testing is performed in the [facility] laboratories located at [address] [place] [address]. Performed By: #### C OVSC #### [place] [address] Lab Specimen Source Nasal, Nasopharyngeal Normal [facility] Comment on above: Performed By: #### C OVSC #### [place] [address] Covid 19 Resultson 1 SARS-CoV-2 (COVID-19) RNA CYNTHIA+probe Ql (Unsp spec) NEGATIVE COVID-19 Test Coronaviruses are common world-wide and are the cause of many common colds. SARS-COV2 is a new coronavirus that began circulating worldwide in 2019 so we are calling it COVID-19. It has been estimated that four out of five patients with COVID-19 will recover at home without the need for medical attention. Symptoms of COVID-19 may include cough, fever, shortness of breath, loss of taste or smell and other flu-like symptoms including chills, sore muscles, sore throat, and headache. Severe illness is more common in older people and people with other health problems such as high blood pressure, obesity, and immune system problems. If the test is positive, you have COVID-19. You will be contacted by the ordering physicians office and instructed to remain on home isolation, in accordance with CDC guidelines. You may also be contacted by the [facility] to see if any of your close contacts may have been exposed to the virus and need to quarantine. If the test is negative, you likely do not have COVID-19 at this time, but you still may have a different illness that can spread to other people (like Influenza, or the Flu) and could still be at risk for getting COVID-19. We recommend that you stay away from other people to limit the spread of illness until your symptoms are improving and you are fever-free for 24 hours without the use of fever lowering medications such as acetaminophen or ibuprofen. No test is 100% accurate so if you are still concerned you may have COVID-19, talk to your doctor about the need to continue to stay away from others. Medicines Unless your provider told you not to use the following: Acetaminophen (Tylenol and others) is generally safe. Anti-inflammatory medications, such as Ibuprofen (Advil or Motrin) or Naproxen (Aleve) can also be used. Cuym-azl-xvkqchc cough and cold medicines can be used according to the instructions on the package. Some yzjo-byq-qkjjovy medicines also contain acetaminophen. Make sure you are not taking more than your recommended dose. For those not hospitalized, there is no specific treatment available for this illness. Antibiotics do not treat Coronaviruses. Follow-Up Follow up with your doctor by scheduling a virtual visit or consider follow-up at one of our urgent care fever clinics. If you are having difficulty breathing, or are very weak and having difficulty standing, this is a medical emergency. Call 911 or have someone take you to the nearest emergency room immediately. If possible, wear a facemask. Additional guidance from the CDC for patients who tested POSITIVE for COVID-19 How to isolate: Isolate yourself in a specific room at home and limit your contact with others. Use a separate bathroom from other members of the household, when possible. Leave home only to get essential medical care. Do not go to work, school or public areas. Avoid using public transportation, ride-sharing, or taxis. Restrict contact with pets and other animals. If you must care for your pet or be around animals while you are sick, wash your hands before and after your interaction and wear a facemask. Make sure that shared spaces in the home have good airflow, such as by an air conditioner or an opened window, weather permitting. Personal Hygiene Procedures: Wear a face mask when in the same room as other people or pets. If a face mask interferes with your breathing, others should wear a mask when sharing space with you. Frequent hand-washing: wash your hands with soap and water for at least 20 seconds. If soap and water are not available, use alcohol-based hand commercial finance analyst. Avoid touching your eyes, nose, and mouth with unwashed hands. Household Hygiene Procedures: Avoid sharing personal household items such as dishes, glassware, cups, eating utensils, towels or bedding with other people or pets in your home. After use, these items should be washed with soap and hot water. Disinfect all high-touch surfaces every day with antibacterial cleaning solutions such as Lysol wipes, bleach, cleansers, etc. High-touch surfaces include tabletops, doorknobs, bathroom fixtures, toilets, phones, keyboards, tablets and bedside tables. Immediately clean any surfaces that may have blood, poop or body fluids on them, using antibacterial cleaning solutions such as Lysol wipes, bleach, cleansers, etc. If clothing or bedding come into contact with blood, poop or body fluids, they should be washed immediately. Follow the directions on the laundry detergent and clothing labels but hot water is recommended when possible. Stopping home isolation precautions: If possible, consult your doctor before stopping home isolation precautions. According to the CDC, you can discontinue home isolation precautions when you have met both of these criteria: Your fever and respiratory symptoms have been gone for 24 randy (more content not included)... Normal [facility] Daily Progress Note-Surgeryo n 10-23-2020 Daily Progress Note-Surgery Service: Surgery Subjective Data: BHARAT MANZANARES is a 55 year old Female who is Hospital Day # 6. Patient examined at bedside. No complaints this morning. Denies chest pain, abdominal pain, nausea, diarrhea, or difficulty breathing. Overnight Events: Patient had an uneventful night. Objective Data: Objective Information: T PRBPSpO2 [id number]/8194% Date/Time10/23 3: 3: 3: 3: 3:22 Range(36C - 37.1C ) (53 - 73 ) (17 - 19 ) (97 - 135 )/ (61 - 81 ) (92% - 96% ) Highest temp of 37.1 C was recorded at 10/22 19:23 Pain reported at 10/22 20:45: 0 = None Physical Exam by System: Constitutional: resting comfortable, no distress, alert and cooperative Eyes: EOMI, clear sclera Head/Neck: Normocephalic, atraumatic Respiratory/Thorax: Breathing comfortably on room air. No respiratory distress. Cardiovascular: No tachycardia. Gastrointestinal: Abdomen nondistended, soft, non-tender. Musculoskeletal: ROM intact in all 4 extremities Neurological: Awake, alert, oriented. Psychological: Appropriate mood and behavior Skin: Warm and dry Medication: Medications: Continuous Medications -------- 1. Lactated Ringers Infusion: 1000 mL IntraVenous 2. TPN Standard- Amino Acids 5 % - Dextrose 15%: 2000 mL IntraVenous Scheduled Medications -------- 1. Fat Emulsion 20% (SMOFLIPID) Infusion: 180 mL IntraVenous Piggyback 2. Fluconazole 400 mg IVPB/ Premixed NS 200 mL: 200 mL IntraVenous Piggyback Every 24 Hours 3. Insulin Lispro Mild Corrective Scale: unit(s) SubCutaneous Every 4 Hours 4. Levothyroxine Injectable: 87.5 microgram(s) IntraVenous Push Daily 5. Nicotine 14 mg/ 24 hour TransDermal: 1 patch TransDermal Every 24 Hours 6. Sodium Chloride 0.9% Injectable Flush: 10 mL IntraVenous Flush Every 12 Hours PRN Medications -------- 1. Albuterol 2.5mg - Ipratropium 0.5 mg/ 3mL Neb Soln: 3 mL Inhalation Every 6 Hours 2. Dextrose 50% in Water Injectable: 25 gram(s) IntraVenous Push Every 15 Minutes 3. Glucagon Injectable: 1 mg IntraMuscular Every 15 Minutes Conditional Medication Orders -------- 1. Perflutren Lipid Microsphere (Activated) 1.3 mL / NaCL 0.9% T.V. 10 mL Injectable: 0.5 mL IntraVenous Push Once Currently Suspended Medications -------- 1. Atorvastatin: 20 mg Oral Daily 2. Haloperidol Lactate Injectable: 2 mg IntraVenous Push Every 12 Hours 3. Ondansetron Injectable: 4 mg IntraVenous Push Every 6 Hours 4. Oxybutynin: 5 mg Oral 3 Times a Day Recent Lab Results: Results: I have reviewed these laboratory results: Complete Blood Count 23-Oct-2020 04:15:00 ResultValue White Blood Cell Count 11.5 H Nucleated Erythrocyte Count 0.0 Red Blood Cell Count 4.05 HGB 11.3 L HCT 35.4 L MCV 87 MCHC 31.9 L PLT 167 RDW-CV 15.2 H Renal Function Panel 23-Oct-2020 04:15:00 ResultValue Glucose, Serum 93 NA 141 K 3.8 CL 103 Bicarbonate, Serum 35 H Anion Gap, Serum 7 L BUN 11 CREAT 0.54 GFR-Non >60 GFR- >60 Calcium, Serum 7.9 L Phosphorus, Serum 3.7 ALB 2.3 L Magnesium, Serum 23-Oct-2020 04:15:00 ResultValue Magnesium, Serum 1.77 Radiology Results: Results: Impression: 1. Interval increase in consolidative opacities in bilateral lung bases, left more than right. Correlation with concern for infection and aspiration. 2. Bilateral pleural effusion, left more than right. Xray Chest 1 View [Oct 22 2020 10:24AM] Assessment and Plan: Code Status: Code StatusFull Code Assessment: Assessment: BHARAT MANZANARES is a 55 year old Female with a PMH significant for CHF, COPD, T2DM, hypothyroidism, and cerebral palsy who presented to the ED for chronic dysphagia and inability to tolerate solid foods, liquids, or medications. Upper GI series on 10/19 significant for severe narrowing at GE junction without passage of contrast. Based on findings, patient to be transported to [facility] on 10/21 for EGD with manometry and then transferred back to [facility] following procedure. Depending on findings, will consider POEM on Saturday, 10/24. Dr. Ramirez consulted for optimization. Based on bradycardia and telemetry from overnight 10/19, recommended Echo for 10/20, suspecting increased vagal tone leading to achalasia and arrhythmia. Echo significant for EF 60%, no wall motion abnormalities. EKG on 10/19 significant for qtc 594, home haloperidol held, repeat EKG on 10/20 qtc 365. Additionally, TPN started on 10/20 after PICC placement on 10/19. Plan for POEM on 10/[address] Mcknight. Verbal consent obtained from legal guardian, Jessica, for procedures - signed in chart. Plan: Neuro: Tylenol PRN for pain. Psychiatry consulted, holding home Haloperidol in setting of prolonged Qtc. CV: Holdi (more content not included)... Normal [facility] GLUCOSE-POCTon 10-23-2020 Glucose [Mass/Vol] 120 mg/dL High 74 - 99 [facility] Comment on above: Performed By: #### P HOS #### [facility] [address] [place] [address] Glucose [Mass/Vol] 104 mg/dL High 74 - 99 [facility] Comment on above: Performed By: #### R ENAL #### [facility] [address] [place] [address] Glucose [Mass/Vol] 125 mg/dL High 74 - 99 [facility] Comment on above: Performed By: #### M G #### [facility] [address] [place] [address] Glucose [Mass/Vol] 137 mg/dL High 74 - 99 [facility] Comment on above: Performed By: #### C OVSC #### [facility] [address] [place] [address] Glucose [Mass/Vol] 138 mg/dL High 74 - 99 [facility] Comment on above: Performed By: #### C BC #### [facility] [address] [place] [address] Glucose [Mass/Vol] 111 mg/dL High - 99 [facility] Comment on above: Performed By: #### M G #### [facility] [address] [place] [address] Glucose [Mass/Vol] 118 mg/dL High 74 - 99 [facility] Comment on above: Performed By: #### G AMBER #### [facility] [address] [place] [address] MAGNESIUMon 10-23-2020 Magnesium [Mass/Vol] 1.77 mg/dL Normal 1.60 - 2.40 [facility] Comment on above: Performed By: #### M G #### [facility] [address] [place] [address] RENAL FUNCTION PANELon 10-23 Albumin [Mass/Vol] 2.3 g/dL Low 3.4 - 5.0 [facility] Comment on above: Performed By: #### R ENAL #### [facility] [address] [place] [address] Anion gap [Moles/Vol] 7 mmol/L Low 10 - 20 [facility] Comment on above: Performed By: #### R ENAL #### [facility] [address] [place] [address] Calcium [Mass/Vol] 7.9 mg/dL Low 8.6 - 10.6 [facility] Comment on above: Performed By: #### R ENAL #### [facility] [address] [place] [address] Chloride [Moles/Vol] 103 mmol/L Normal 98 - 107 [facility] Comment on above: Performed By: #### R ENAL #### [facility] [address] [place] [address] Creatinine [Mass/Vol] 0.54 mg/dL Normal 0.50 - 1.05 [facility] Comment on above: Performed By: #### R ENAL #### [facility] [address] [place] [address] GFR- AM. >60 Normal >60 [facility] Comment on above: Result Comment: CALC ULATIONS OF ESTIMATED GFR ARE PERFORMED USING THE MDRD STUDY EQUATION FOR THE IDMS-TRACEABLE CREATININE METHODS. CLIN CHEM 2007;53:766-72 Performed By: #### R ENAL #### [facility] [address] [place] [address] GFR-NON AM. >60 Normal >60 [facility] Comment on above: Performed By: #### R ENAL #### [facility] [address] [place] [address] Glucose [Mass/Vol] 93 mg/dL Normal 74 - 99 [facility] Comment on above: Performed By: #### R ENAL #### [facility] [address] [place] [address] HCO3 (Bld) [Moles/Vol] 35 mmol/L High 21 - 32 [facility] Comment on above: Performed By: #### R ENAL #### [facility] [address] [place] [address] Phosphate [Mass/Vol] 3.7 mg/dL Normal 2.5 - 4.9 [facility] Comment on above: Result Comment: The performance characteristics of phosphorus testing in heparinized plasma have been validated by the individual laboratory site where testing is performed. Testing on heparinized plasma is not approved by the FDA; however, such approval is not necessary. Performed By: #### R ENAL #### [facility] [address] [place] [address] Potassium [Moles/Vol] 3.8 mmol/L Normal 3.5 - 5.3 [facility] Comment on above: Performed By: #### R ENAL #### [facility] [address] [place] [address] Sodium [Moles/Vol] 141 mmol/L Normal 136 - 145 [facility] Comment on above: Performed By: #### R ENAL #### [facility] [address] [place] [address] Urea nitrogen [Mass/Vol] 11 mg/dL Normal 6 - 23 [facility] Comment on above: Performed By: #### R ENAL #### [facility] [address] [place] [address] ALBUMIN Canceled Normal [facility] Comment on above: Order Comment: TEST RENAL FUNCTION PANEL WAS CANCELLED, 10/23/2020 04:00 Performed By: #### M G #### [facility] [address] [place] [address] PHOSPHORUS Canceled Normal [facility] Comment on above: Order Comment: TEST RENAL FUNCTION PANEL WAS CANCELLED, 10/23/2020 04:00 Result Comment: The performance characteristics of phosphorus testing in heparinized plasma have been validated by the individual laboratory site where testing is performed. Testing on heparinized plasma is not approved by the FDA; however, such approval is not necessary. Performed By: #### M G #### [facility] [address] [place] [address] BASIC METABOLIC PANELon 05-1 Anion gap [Moles/Vol] 8 mmol/L Low 10 - 20 [facility] Comment on above: Performed By: #### P HOS #### [facility] [address] [place] [address] Calcium [Mass/Vol] 7.5 mg/dL Low 8.6 - 10.6 [facility] Comment on above: Performed By: #### P HOS #### [facility] [address] [place] [address] Chloride [Moles/Vol] 102 mmol/L Normal 98 - 107 [facility] Comment on above: Performed By: #### P HOS #### [facility] [address] [place] [address] Creatinine [Mass/Vol] 0.58 mg/dL Normal 0.50 - 1.05 [facility] Comment on above: Performed By: #### P HOS #### [facility] [address] [place] [address] GFR- AM. >60 Normal >60 [facility] Comment on above: Result Comment: CALC ULATIONS OF ESTIMATED GFR ARE PERFORMED USING THE MDRD STUDY EQUATION FOR THE IDMS-TRACEABLE CREATININE METHODS. CLIN CHEM 2007;53:766-72 Performed By: #### P HOS #### [facility] [address] [place] [address] GFR-NON AM. >60 Normal >60 [facility] Comment on above: Performed By: #### P HOS #### [facility] [address] [place] [address] Glucose [Mass/Vol] 69 mg/dL Low 74 - 99 [facility] Comment on above: Performed By: #### P HOS #### [facility] [address] [place] [address] HCO3 (Bld) [Moles/Vol] 34 mmol/L High 21 - 32 [facility] Comment on above: Performed By: #### P HOS #### [facility] [address] [place] [address] Potassium [Moles/Vol] 3.2 mmol/L Low 3.5 - 5.3 [facility] Comment on above: Performed By: #### P HOS #### [facility] [address] [place] [address] Sodium [Moles/Vol] 141 mmol/L Normal 136 - 145 [facility] Comment on above: Performed By: #### P HOS #### [facility] [address] [place] [address] Urea nitrogen [Mass/Vol] 8 mg/dL Normal 6 - 23 [facility] Comment on above: Performed By: #### P HOS #### [facility] [address] [place] [address] CBCon 10-22-2020 Erythrocyte distribution width (RBC) [Ratio] 15.0 % High 11.5 - 14.5 [facility] Comment on above: Performed By: #### M G #### [facility] [address] [place] [address] Hematocrit (Bld) [Volume fraction] 33.5 % Low 36.0 - 46.0 [facility] Comment on above: Performed By: #### M G #### [facility] [address] [place] [address] Hemoglobin (Bld) [Mass/Vol] 11.0 g/dL Low 12.0 - 16.0 [facility] Comment on above: Performed By: #### M G #### [facility] [address] [place] [address] MCHC (RBC) [Mass/Vol] 32.8 g/dL Normal 32.0 - 36.0 [facility] Comment on above: Performed By: #### M G #### [facility] [address] [place] [address] MCV (RBC) [Entitic vol] 85 fL Normal 80 - 100 [facility] Comment on above: Performed By: #### M G #### [facility] [address] [place] [address] NUCLEATED RBC 0.0 /100 WBC Normal 0.0-0.0 [facility] Comment on above: Performed By: #### M G #### [facility] [address] [place] [address] Platelets (Bld) [#/Vol] 167 10*3/uL Normal 150 - 450 [facility] Comment on above: Performed By: #### M G #### [facility] [address] [place] [address] RBC 3.92 x10E12/L Low 4.00 - 5.20 [facility] Comment on above: Performed By: #### M G #### [facility] [address] [place] [address] WBC (Bld) [#/Vol] 14.8 10*3/uL High 4.4 - 11.3 [facility] Comment on above: Performed By: #### M G #### [facility] [address] [place] [address] Daily Progress Note-Surgeryo n 10-22-2020 Daily Progress Note-Surgery Service: Surgery Subjective Data: BHARAT MANZANARES is a 55 year old Female who is Hospital Day # 5. No overnight events. Patient examined at bedside. No complaints this morning. Denies nausea or abdominal pain. Overnight Events: Patient had an uneventful night. Objective Data: Objective Information: T PRBPSpO2 [id number]/6793% Date/Time10/22 4:125 4: 4:125 4:125 4:12 Range(36.5C - 36.7C ) (54 - 71 ) (17 - 18 ) (104 - 121 )/ (61 - 72 ) (91% - 96% ) Pain reported at 10/21 8:28: 0 = None Physical Exam by System: Constitutional: resting comfortable, no distress, alert and cooperative Eyes: EOMI, clear sclera Head/Neck: Normocephalic, atraumatic Respiratory/Thorax: Breathing comfortably on room air. No respiratory distress. Cardiovascular: No tachycardia. Gastrointestinal: Abdomen nondistended, soft, non-tender. Musculoskeletal: ROM intact in all 4 extremities Neurological: Awake, alert, oriented. Psychological: Appropriate mood and behavior Skin: Warm and dry Medication: Medications: Continuous Medications -------- 1. Dextrose 5% - NaCL 0.45% Infusion: 1000 mL IntraVenous 2. TPN Standard- Amino Acids 5 % - Dextrose 15%: 2000 mL IntraVenous Scheduled Medications -------- 1. Fat Emulsion 20% (SMOFLIPID) Infusion: 180 mL IntraVenous Piggyback 2. Insulin Lispro Mild Corrective Scale: unit(s) SubCutaneous Every 4 Hours 3. Levothyroxine Injectable: 87.5 microgram(s) IntraVenous Push Daily 4. Nicotine 14 mg/ 24 hour TransDermal: 1 patch TransDermal Every 24 Hours 5. Sodium Chloride 0.9% Injectable Flush: 10 mL IntraVenous Flush Every 12 Hours PRN Medications -------- 1. Albuterol 2.5mg - Ipratropium 0.5 mg/ 3mL Neb Soln: 3 mL Inhalation Every 6 Hours 2. Dextrose 50% in Water Injectable: 25 gram(s) IntraVenous Push Every 15 Minutes 3. Glucagon Injectable: 1 mg IntraMuscular Every 15 Minutes Conditional Medication Orders -------- 1. Perflutren Lipid Microsphere (Activated) 1.3 mL / NaCL 0.9% T.V. 10 mL Injectable: 0.5 mL IntraVenous Push Once Currently Suspended Medications -------- 1. Atorvastatin: 20 mg Oral Daily 2. Haloperidol Lactate Injectable: 2 mg IntraVenous Push Every 12 Hours 3. Ondansetron Injectable: 4 mg IntraVenous Push Every 6 Hours 4. Oxybutynin: 5 mg Oral 3 Times a Day Assessment and Plan: Code Status: Code StatusFull Code Assessment: Assessment: BHARAT MANZANARES is a 55 year old Female with a PMH significant for CHF, COPD, T2DM, hypothyroidism, and cerebral palsy who presented to the ED for chronic dysphagia and inability to tolerate solid foods, liquids, or medications. Upper GI series on 10/19 significant for severe narrowing at GE junction without passage of contrast. Based on findings, patient to be transported to [facility] on 10/21 for EGD with manometry and then transferred back to [facility] following procedure. Depending on findings, will consider POEM on Saturday, 10/24. Dr. Ramirez consulted for optimization. Based on bradycardia and telemetry from overnight 10/19, recommended Echo for 10/20, suspecting increased vagal tone leading to achalasia and arrhythmia. Echo significant for EF 60%, no wall motion abnormalities. EKG on 10/19 significant for qtc 594, home haloperidol held, repeat EKG on 10/20 qtc 365. Additionally, TPN started on 10/20 after PICC placement on 10/19. Plan for POEM on 10/[address] Mcknight. Plan: Neuro: Tylenol PRN for pain. Psychiatry consulted, holding home Haloperidol in setting of prolonged Qtc. CV: Holding home midodrine at this time. Echo on 10/21 EF 60%. Resp: On room air, IS. RT to evaluate and treat. Started on fluconazole 400mg IV q24h for esophageal hiro. GI: TPN started on 10/20. EGD with manometry on 10/21. Heme: Will continue to monitor. Endo: A1c 6.1. Continue mild SS. Elevated TSH with low T4 on admission, likely 2/2 medication intolerance. Continue levothyroxine. ID: WBC 14.8 from 8.0, will obtain CXR. MSK: Encourage up out of bed. FEN: mIVF d5NS, TPN. FLD/TPN. Replete electrolytes as needed. Dispo: Remain on RNF. Plan discussed with Dr. Mcknight. Nicole Deleon, DO Family Medicine PGY-1 Signature/Cosignature/At testation: Note Completion: I am a: Resident/Fellow Attending AttestationI reviewed the resident/fellows documentation and discussed the patient with the resident/fellow. I agree with the resident/fellows medical decision making as documented in the note. Electronic Signatures: Nicole Deleon (Resident)) (Signed 22-Oct-2020 08:11) Authored: Service, Subjective Data, Objective Data, Assessment and Plan, Note Completion Mahesh Mcknight) (Signed 24-Oct-2020 08:08) Authored: Note Completion Co-Signer: Assessment and Plan, Note Completion Last Updated (more content not included)... Normal [facility] GLUCOSE-POCTon 10-22-2020 Glucose [Mass/Vol] 118 mg/dL High 74 - 99 [facility] Comment on above: Performed By: #### C BC #### [facility] [address] [place] [address] Glucose [Mass/Vol] 114 mg/dL High 74 - 99 [facility] Comment on above: Performed By: #### C BC #### [facility] [address] [place] [address] Glucose [Mass/Vol] 105 mg/dL High 74 - 99 [facility] Comment on above: Performed By: #### M G #### [facility] [address] [place] [address] Glucose [Mass/Vol] 121 mg/dL High 74 - 99 [facility] Comment on above: Performed By: #### G AMBER #### [facility] [address] [place] [address] Glucose [Mass/Vol] 81 mg/dL Normal 74 - 99 [facility] Comment on above: Performed By: #### P HOS #### [facility] [address] [place] [address] Glucose [Mass/Vol] 115 mg/dL High 74 - 99 [facility] Comment on above: Performed By: #### M G #### [facility] [address] [place] [address] MAGNESIUMon 10-22-2020 Magnesium [Mass/Vol] 1.84 mg/dL Normal 1.60 - 2.40 [facility] Comment on above: Performed By: #### P HOS #### [facility] [address] [place] [address] PHOSPHORUSon 10-22-2020 PHOSPHORUS Canceled Normal [facility] Comment on above: Order Comment: TEST PHOSPHORUS WAS CANCELLED, 10/22/2020 08:38 DUPLICATE ORDER. Result Comment: The performance characteristics of phosphorus testing in heparinized plasma have been validated by the individual laboratory site where testing is performed. Testing on heparinized plasma is not approved by the FDA; however, such approval is not necessary. Performed By: #### P HOS #### [facility] [address] [place] [address] TH CHEST 1 VIEWon 10-22-2020 TH CHEST 1 VIEW Patient Name: BHARAT MANZANARES STUDY: CHEST 1 VIEW; 10/22/2020 9:51 am INDICATION: hx achalasia, increasing WBC, concern for aspiration. COMPARISON: Radiograph dated 10/18/2020 ACCESSION NUMBER(S): [id number] ORDERING CLINICIAN: HERRERA BAUTISTA FINDINGS: Interval placement of a right upper extremity PICC with the tip projecting over the mid SV C. The cardiac silhouette size is within normal limits. Interval worsening of the aeration of the lung bases, with new consolidative opacities, left more than right. Small bilateral pleural effusion with no edema or pneumothorax. No acute osseous abnormality. IMPRESSION: 1. Interval increase in consolidative opacities in bilateral lung bases, left more than right. Correlation with concern for infection and aspiration. 2. Bilateral pleural effusion, left more than right. Electronically signed by: CONNOR HOPE MD Normal [facility] THYROXINE,FREEon 10-22-2020 THYROXINE,FREE 0.81 ng/dL Normal 0.78 - 1.48 [facility] Comment on above: Result Comment: Thyr oxine Free testing is performed using different testing methodology at [facility] than at other [facility]. Direct result comparisons should only be made within the same method. Performed By: #### T 4FRE #### [facility] [address] [place] [address] TSH WITH REFLEX TO FREE T4 I F ABNORMALon 10-22-2020 TSH Qn 15.99 m[IU]/L High 0.44 - 3.98 [facility] Comment on above: Result Comment: TSH testing is performed using different testing methodology at [facility] than at other [facility]. Direct result comparisons should only be made within the same method. Performed By: #### P [facility] #### [address] Surgical Pathology Dep artmenton 10-21-2020 [facility] Surgical Pathology Department Name BHARAT MANZANARES Pathologist: DAYLIN TOMLINSON MD Date of Procedure: 10/21/2020 Date Received: 10/24/2020 Date Reported 10/27/2020 Submitting Physician: CLEO ANDERSON MD Location: [facility] Copy To/Referring/Attending: MAHESH MCKNIGHT MD Other External # FINAL DIAGNOSIS A: ESOPHAGUS, COLD FORCEP BIOPSY: -ACUTE EROSIVE ESOPHAGITIS. Note: GMS-Fungal shows rare pseudo-hyphae and yeast forms; consistent with Hiro spc. Electronically Signed Out By DAYLIN TOMLINSON MD/SSV By the signature on this report, the individual or group listed as making the Final Interpretation/Diagnosis certifies that they have reviewed this case. Clinical History: R/O Hiro Specimens Submitted As: A: ESOPHAGEAL BX- COLD FORCEP Gross Description: Received in formalin, labeled with the patient's name and hospital number and esophagus, are 2 fragments of mejia, soft tissue aggregating to 0.5 x 0.2 x 0.1 cm. The specimen is submitted in toto in one cassette. DPG Gross dissection performed at: [facility] Department of Pathology [id number] [place], [place] [phone] dpg/10/25/2020 The assays/tests were performed with appropriate positive and negative controls which stained appropriately. [facility] Department of Pathology [address] [place] [address] Normal [facility] Comment on above: Performed By: #### A #### [facility] Surgical Pathology Department [address] [place] [id number] CBCon 10-21-2020 Erythrocyte distribution width (RBC) [Ratio] 15.0 % High 11.5 - 14.5 [facility] Comment on above: Performed By: #### T 4FRE #### [facility] [address] [place] [address] Hematocrit (Bld) [Volume fraction] 36.1 % Normal 36.0 - 46.0 [facility] Comment on above: Performed By: #### T 4FRE #### [facility] [address] [place] [address] Hemoglobin (Bld) [Mass/Vol] 11.5 g/dL Low 12.0 - 16.0 [facility] Comment on above: Performed By: #### T 4FRE #### [facility] [address] [place] [address] MCHC (RBC) [Mass/Vol] 31.9 g/dL Low 32.0 - 36.0 [facility] Comment on above: Performed By: #### T 4FRE #### [facility] [address] [place] [address] MCV (RBC) [Entitic vol] 88 fL Normal 80 - 100 [facility] Comment on above: Performed By: #### T 4FRE #### [facility] [address] [place] [address] NUCLEATED RBC 0.0 /100 WBC Normal 0.0-0.0 [facility] Comment on above: Performed By: #### T 4FRE #### [facility] [address] [place] [address] Platelets (Bld) [#/Vol] 188 10*3/uL Normal 150 - 450 [facility] Comment on above: Performed By: #### T 4FRE #### [facility] [address] [place] [address] RBC 4.12 x10E12/L Normal 4.00 - 5.20 [facility] Comment on above: Performed By: #### T 4FRE #### [facility] [address] [place] [address] WBC (Bld) [#/Vol] 8.0 10*3/uL Normal 4.4 - 11.3 [facility] Comment on above: Performed By: #### T 4FRE #### [facility] [address] [place] [address] Daily Progress Note - Psychi mu 10-21-2020 Daily Progress Note - Psychiatry Subjective Data: BHARAT MANZANARES is a 55 year old Female who is Hospital Day # 4. Patient's nurse confirmed that she will be transferred to [place] today for an endoscopic procedure. Additional Information: Patient reported good mood and spirits; has been content with Bible and art therapy/coloring. Denied symptoms of psychosis. Patient continues to feel safe, content with care, and motivated toward recovery before returning home. Stated that she will be transferred to [place] today for an endoscopic procedure. Objective: Objective Information: T PRBPSpO2 [id number]/5995% Date/Time10/21 4: 4: 4: 4: 4:51 Range(36.3C - 36.8C ) (47 - 58 ) (16 - 20 ) (110 - 119 )/ (58 - 70 ) (92% - 95% ) Mental Status Exam: General: Calm, in no acute distress (door and curtains open). Appearance: Female, appearing as stated age, dressed in hospital attire, glasses, head of bed elevated. Attitude: Calm, engaged and communicative Behavior: Appropriate eye contact. Motor Activity: No agitation or retardation. No EPS/TD. Gait not assessed. Speech: Regular rate, rhythm, volume and tone, spontaneous, fluent. Mood: really good Affect: Appropriate with full range. Congruent to mood. Thought Process: Organized, linear, goal directed. Associations are logical. Thought Content: Does not endorse suicidal or homicidal ideation, no delusions elicited. Thought Perception: Does not endorse auditory or visual hallucinations, does not appear to be responding to hallucinatory stimuli. Cognition: Alert, oriented x3. No deficits noted. Adequate fund of knowledge. No deficit in recent and remote memory. No deficits in attention, concentration or language. Insight: Good, as patient recognizes symptoms of illness and need for recommended treatments. Judgment: Can make reasonable decisions about ordinary activities of daily living and necessary medical care recommendations. Medications: Continuous Medications -------- 1. Dextrose 5% - NaCL 0.45% Infusion: 1000 mL IntraVenous 2. TPN Standard- Amino Acids 5 % - Dextrose 15%: 2000 mL IntraVenous Scheduled Medications -------- 1. Fat Emulsion 20% (SMOFLIPID) Infusion: 180 mL IntraVenous Piggyback 2. Insulin Lispro Mild Corrective Scale: unit(s) SubCutaneous 3 Times a Day Before Meals 3. Levothyroxine Injectable: 87.5 microgram(s) IntraVenous Push Daily 4. Nicotine 14 mg/ 24 hour TransDermal: 1 patch TransDermal Every 24 Hours 5. Sodium Chloride 0.9% Injectable Flush: 10 mL IntraVenous Flush Every 12 Hours 6. Technetium Tc 99m Sulfur Colloid - (Radiology Contrast): 500 microCurie Oral Once PRN Medications -------- 1. Albuterol 2.5mg - Ipratropium 0.5 mg/ 3mL Neb Soln: 3 mL Inhalation Every 6 Hours 2. Dextrose 50% in Water Injectable: 25 gram(s) IntraVenous Push Every 15 Minutes 3. Glucagon Injectable: 1 mg IntraMuscular Every 15 Minutes Conditional Medication Orders -------- 1. Perflutren Lipid Microsphere (Activated) 1.3 mL / NaCL 0.9% T.V. 10 mL Injectable: 0.5 mL IntraVenous Push Once Currently Suspended Medications -------- 1. Atorvastatin: 20 mg Oral Daily 2. Haloperidol Lactate Injectable: 2 mg IntraVenous Push Every 12 Hours 3. Ondansetron Injectable: 4 mg IntraVenous Push Every 6 Hours 4. Oxybutynin: 5 mg Oral 3 Times a Day Recent Lab Results: Results: I have reviewed these laboratory results in [facility]: Glucose_POCT Trending View [id number] 04:59:00 20-Oct-2020 21:57:00 [id number] H 81 Potassium, Level 21-Oct-2020 02:19:00 ResultValue K 3.2 L Culture, Respiratory Lower, incl. smear 13-May-2021 19:43:00 ResultValue Gram Stain GRAM STAIN INDICATES SPECIMEN CONSISTS OF LOWER RESPIRATORY TRACT SECRETIONS. NO PREDOMINANT ORGANISM. Renal Function Panel 20-Oct-2020 18:39:00 ResultValue Glucose, Serum 88 NA 142 K 3.2 L CL 104 Bicarbonate, Serum 32 Anion Gap, Serum 9 L BUN 12 CREAT 0.61 GFR-Non >60 GFR- >60 Calcium, Serum 7.6 L Phosphorus, Serum 2.3 L ALB 2.3 L Troponin I, Serum 20-Oct-2020 18:39:00 ResultValue Troponin I, Serum <0.02 . Assessment and Plan: Assessment: Patient is a 55 year old Female with psychiatric history of (unspecified) psychosis and a PMH significant for achalasia, CHF, COPD, T2DM, hypothyroidism, and cerebral palsy who presented to the ED for dysphagia and inability to tolerate any PO intake. Patient reports that she has been unable to tolerate foods, liquids, and medications for years with a 150 lbs weight loss over the past 12 years. Psychiatry consulted to confirm psychiatric and medication history, and medication management in setting of prolonged Qtc interval secondary to IV haldol. 10/21: (more content not included)... Normal [facility] Daily Progress Note-Surgeryo n 10-21-2020 Daily Progress Note-Surgery Service: Surgery Subjective Data: BHARAT MANZANARES is a 55 year old Female who is Hospital Day # 4. Overnight Events: Patient had an uneventful night. Additional Information: Patient reports feeling OK this morning. Had some clear liquid yesterday. No vomiting. Denies abdominal pain. Objective Data: Objective Information: T PRBPSpO2 [id number]/6991% Date/Time10/21 11: 11: 11: 11: 11:08 Range(36.3C - 36.8C ) (50 - 58 ) (16 - 20 ) (107 - 121 )/ (58 - 70 ) (91% - 95% ) Pain reported at 10/21 8:28: 0 = None Physical Exam by System: Constitutional: resting comfortable, no distress, alert and cooperative Eyes: EOMI, clear sclera Head/Neck: Normocephalic, atraumatic Respiratory/Thorax: Breathing comfortably on room air. No respiratory distress. Cardiovascular: No tachycardia. Gastrointestinal: Nondistended, soft, non-tender, no rebound tenderness Musculoskeletal: ROM intact in all 4 extremities Neurological: Awake, alert, oriented. Psychological: Appropriate mood and behavior Skin: Warm and dry Medication: Medications: Continuous Medications -------- 1. Dextrose 5% - NaCL 0.45% Infusion: 1000 mL IntraVenous 2. TPN Standard- Amino Acids 5 % - Dextrose 15%: 2000 mL IntraVenous Scheduled Medications -------- 1. Fat Emulsion 20% (SMOFLIPID) Infusion: 180 mL IntraVenous Piggyback 2. Insulin Lispro Mild Corrective Scale: unit(s) SubCutaneous Every 4 Hours 3. Levothyroxine Injectable: 87.5 microgram(s) IntraVenous Push Daily 4. Nicotine 14 mg/ 24 hour TransDermal: 1 patch TransDermal Every 24 Hours 5. Potassium Chloride Powder Packet: 20 mEq Oral Once 6. Sodium Chloride 0.9% Injectable Flush: 10 mL IntraVenous Flush Every 12 Hours 7. Technetium Tc 99m Sulfur Colloid - (Radiology Contrast): 500 microCurie Oral Once PRN Medications -------- 1. Albuterol 2.5mg - Ipratropium 0.5 mg/ 3mL Neb Soln: 3 mL Inhalation Every 6 Hours 2. Dextrose 50% in Water Injectable: 25 gram(s) IntraVenous Push Every 15 Minutes 3. Glucagon Injectable: 1 mg IntraMuscular Every 15 Minutes Conditional Medication Orders -------- 1. Perflutren Lipid Microsphere (Activated) 1.3 mL / NaCL 0.9% T.V. 10 mL Injectable: 0.5 mL IntraVenous Push Once Currently Suspended Medications -------- 1. Atorvastatin: 20 mg Oral Daily 2. Haloperidol Lactate Injectable: 2 mg IntraVenous Push Every 12 Hours 3. Ondansetron Injectable: 4 mg IntraVenous Push Every 6 Hours 4. Oxybutynin: 5 mg Oral 3 Times a Day Recent Lab Results: Results: CBC: 10/21/2020 05:03 \ Hgb / \ 11.5 L / WBC Plt 8.0 188 / Hct \ / 36.1 \ RBC: 4.12 MCV: 88 RFP: 10/21/2020 05:03 NA+ Cl- BUN / 142 105 10 / -------- Glucose --- 133 H K+ HCO3- Creat \ 3.7 31 0.59 \ Calcium : 7.6 LAnion Gap : 10 Albumin : 2.4 L Phos : 2.2 L Radiology Results: Results: Conclusion: CONCLUSIONS: 1. The left ventricular systolic function is normal with a 60% estimated ejection fraction. 2. Slightly elevated RVSP. 3. There is no evidence of a patent foramen ovale. QUANTITATIVE DATA SUMMARY: 2D MEASUREMENTS: Normal Ranges: Ao Root d: 3.07 cm (2.0-3.7cm) LAs: 3.00 cm (2.7-4.0cm) IVSd: 0.70 cm (0.6-1.1cm) LVPWd: 0.80 cm (0.6-1.1cm) LVIDd: 5.20 cm (3.9-5.9cm) LVIDs: 3.20 cm LV Mass Index: 84.1 g/m2 LV % FS 38.5 % LA VOLUME: Normal Ranges: LA Vol A4C: 25.8 ml (22+/-6mL/m2) LA Vol Index A4C: 16.2ml/m2 LA Area A4C: 13.1 cm2 LA Major [place] A4C: 5.7 cm LV SYSTOLIC FUNCTION BY 2D PLANIMETRY (MOD): Normal Ranges: EF-A4C View: 55.2 % (>55%) EF-A2C View: 67.3 % EF-Biplane: 62.1 % LV DIASTOLIC FUNCTION: Normal Ranges: MV Peak E: 0.96 m/s (0.7-1.2 m/s) MV Peak A: 0.77 m/s (0.42-0.7 m/s) E/A Ratio: 1.25 (1.0-2.2) MV e' 0.11 m/s (>8.0) MV lateral e' 0.12 m/s MV medial e' 0.10 m/s MV A Dur: 121.00 msec E/e' Ratio: 8.73 (<8.0) MV DT: 143 msec (150-240 msec) PulmV Sys Miguel: 58.70 cm/s PulmV Puga Miguel: 26.20 cm/s PulmV S/D Miguel: 2.20 PulmV A Revs Miguel: 27.20 cm/s PulmV A Revs Dur: 127.00 msec MITRAL VALVE: Normal Ranges: MV DT: 143 msec (150-240msec) AORTIC VALVE: Normal Ranges: AoV Vmax: 1.46 m/s (<1.7m/s) AoV Peak P.5 mmHg (<20mmHg) LVOT Max Miguel: 1.10 m/s (<1.1m/s) LVOT VTI: 26.60 cm LVOT Diameter: 2.10 cm (1.8-2.4cm) AoV Area,Vmax: 2.61 cm2 (2.5-4.5cm2) RIGHT VENTRICLE: RV 1 3.91 cm RV 2 2.96 cm RV 3 6.32 cm RV s' 0.13 m/s TRICUSPID VALVE/RVSP: Normal Ranges: Peak TR Velocity: 2.21 m/s RV Syst Pressure: 34.5 mmHg (< 30mmHg) PULMONIC VALVE: Normal Ranges: PV Max Miguel: 0.8 m/s (0.6-0.9m/s) PV Max P.8 mmHg Pulmonary Veins: PulmV A Revs Du (more content not included)... Normal [facility] EMR ADDONon 10-21-2020 ADDON CONFIRMATION REQUEST REC'D Normal [facility] Comment on above: Performed By: #### C OVSC #### [facility] [address] [place] [address] GLUCOSE-POCTon 10-21-2020 Glucose [Mass/Vol] 78 mg/dL Normal 74 - 99 [facility] Comment on above: Performed By: #### C BC #### [facility] [address] [place] [address] Glucose [Mass/Vol] 78 mg/dL Normal 74 - 99 [facility] Comment on above: Performed By: #### G AMBER #### [facility] [address] [place] [address] Glucose [Mass/Vol] 60 mg/dL Low 74 - 99 [facility] Comment on above: Performed By: #### G AMBER #### [facility] [address] [place] [address] Glucose [Mass/Vol] 93 mg/dL Normal 74 - 99 [facility] Comment on above: Performed By: #### G AMBER #### [facility] [address] [place] [address] Glucose [Mass/Vol] 182 mg/dL High 74 - 99 [facility] Comment on above: Performed By: #### C BC #### [facility] [address] [place] [address] Glucose [Mass/Vol] 131 mg/dL High 74 - 99 [facility] Comment on above: Performed By: #### P HOS #### [facility] [address] [place] [address] Glucose [Mass/Vol] 118 mg/dL High 74 - 99 [facility] Comment on above: Performed By: #### M G #### [facility] [address] [place] [address] HEPATIC FUNCTION PANELon Albumin [Mass/Vol] 2.4 g/dL Low 3.4 - 5.0 [facility] Comment on above: Performed By: #### T 4FRE #### [facility] [address] [place] [address] Performed By: #### P HOS #### [facility] [address] [place] [address] ALP [Catalytic activity/Vol] 72 U/L Normal 33 - 110 [facility] Comment on above: Performed By: #### T 4FRE #### [facility] [address] [place] [address] ALT [Catalytic activity/Vol] 4 U/L Low 7 - 45 [facility] Comment on above: Result Comment: Fani ents treated with Sulfasalazine may generate falsely decreased results for ALT. Performed By: #### T 4FRE #### [facility] [address] [place] [address] AST [Catalytic activity/Vol] 7 U/L Low 9 - 39 [facility] Comment on above: Performed By: #### T 4FRE #### [facility] [address] [place] [address] Bilirubin [Mass/Vol] 0.5 mg/dL Normal 0.0 - 1.2 [facility] Comment on above: Performed By: #### T 4FRE #### [facility] [address] [place] [address] Bilirubin.indirect [Mass/Vol] 0.1 mg/dL Normal 0.0 - 0.3 [facility] Comment on above: Performed By: #### T 4FRE #### [facility] [address] [place] [address] Protein [Mass/Vol] 4.6 g/dL Low 6.4 - 8.2 [facility] Comment on above: Performed By: #### T 4FRE #### [facility] [address] [place] [address] MAGNESIUMon 10-21-2020 Magnesium [Mass/Vol] 1.63 mg/dL Normal 1.60 - 2.40 [facility] Comment on above: Performed By: #### C BC #### [facility] [address] [place] [address] Order Reconciliationon 10-21 Order Reconciliation Page 1 Discharge Reconciliation Document Reconciliation Type: Discharge requested on behalf of Cleo Anderson (Physician) done by Cleo Anderson) Discharge - Reconciliation: 21-Oct-2020 13:34 by: Cleo Anderson) Home Medications EnteredHOME MEDICATIONS AT DISCHARGE DateReconciliation Comment/ Additional Information Albuterol-Ipratropium [place] 20-Oct-2020 14:17 Albuterol-Ipratropium [place] 20-Oct-2020 14:17 Albuterol-Ipratropium [place] is continued as Albuterol-Ipratropium [place] Atorvastatin Calcium 20-Oct-2020 14:15 Atorvastatin Calcium 20-Oct-2020 14:15 Atorvastatin Calcium is continued as Atorvastatin Calcium Fluticasone 20-Oct-2020 14:14 Fluticasone 20-Oct-2020 14:14 Fluticasone is continued as Fluticasone Haloperidol 20-Oct-2020 14:16 Haloperidol 20-Oct-2020 14:16 Haloperidol is continued as Haloperidol Levothyroxine Sodium 20-Oct-2020 14:16 Levothyroxine Sodium 20-Oct-2020 14:16 Levothyroxine Sodium is continued as Levothyroxine Sodium Metformin HCl-Pioglitazone HCl 20-Oct-2020 14:15 Metformin HCl-Pioglitazone HCl 20-Oct-2020 14:15 Metformin HCl-Pioglitazone HCl is continued as Metformin HCl-Pioglitazone HCl Mirabegron 20-Oct-2020 14:15 Mirabegron 20-Oct-2020 14:15 Mirabegron is continued as Mirabegron Nicotine 20-Oct-2020 14:16 Nicotine 20-Oct-2020 14:16 Nicotine is continued as Nicotine Oxybutynin Chloride 20-Oct-2020 14:15 Oxybutynin Chloride 20-Oct-2020 14:15 Oxybutynin Chloride is continued as Oxybutynin Chloride All Active Home Medications at time of Discharge Reconciliation: 21-Oct-2020 13:34 Albuterol-Ipratropium [place] Atorvastatin Calcium Fluticasone Haloperidol Levothyroxine Sodium Metformin HCl-Pioglitazone HCl Mirabegron Nicotine Oxybutynin Chloride Normal [facility] POTASSIUMon 10-21-2020 Potassium [Moles/Vol] 3.2 mmol/L Low 3.5 - 5.3 [facility] Comment on above: Performed By: #### C #### [facility] [address] [place] [address] RENAL FUNCTION PANELon 10-21 Anion gap [Moles/Vol] 10 mmol/L Normal 10 - 20 [facility] Comment on above: Performed By: #### P HOS #### [facility] [address] [place] [address] Calcium [Mass/Vol] 7.6 mg/dL Low 8.6 - 10.6 [facility] Comment on above: Performed By: #### P HOS #### [facility] [address] [place] [address] Chloride [Moles/Vol] 105 mmol/L Normal 98 - 107 [facility] Comment on above: Performed By: #### P HOS #### [facility] [address] [place] [address] Creatinine [Mass/Vol] 0.59 mg/dL Normal 0.50 - 1.05 [facility] Comment on above: Performed By: #### P HOS #### [facility] [address] [place] [address] GFR- AM. >60 Normal >60 [facility] Comment on above: Result Comment: CALC ULATIONS OF ESTIMATED GFR ARE PERFORMED USING THE MDRD STUDY EQUATION FOR THE IDMS-TRACEABLE CREATININE METHODS. CLIN CHEM 2007;53:766-72 Performed By: #### P HOS #### [facility] [address] [place] [address] GFR-NON AM. >60 Normal >60 [facility] Comment on above: Performed By: #### P HOS #### [facility] [address] [place] [address] Glucose [Mass/Vol] 133 mg/dL High 74 - 99 [facility] Comment on above: Performed By: #### P HOS #### [facility] [address] [place] [address] HCO3 (Bld) [Moles/Vol] 31 mmol/L Normal 21 - 32 [facility] Comment on above: Performed By: #### P HOS #### [facility] [address] [place] [address] Phosphate [Mass/Vol] 2.2 mg/dL Low 2.5 - 4.9 [facility] Comment on above: Result Comment: The performance characteristics of phosphorus testing in heparinized plasma have been validated by the individual laboratory site where testing is performed. Testing on heparinized plasma is not approved by the FDA; however, such approval is not necessary. Performed By: #### P HOS #### [facility] [address] [place] [address] Potassium [Moles/Vol] 3.7 mmol/L Normal 3.5 - 5.3 [facility] Comment on above: Performed By: #### P HOS #### [facility] [address] [place] [address] Sodium [Moles/Vol] 142 mmol/L Normal 136 - 145 [facility] Comment on above: Performed By: #### P HOS #### [facility] [address] [place] [address] Urea nitrogen [Mass/Vol] 10 mg/dL Normal 6 - 23 [facility] Comment on above: Performed By: #### P HOS #### [facility] [address] [place] [address] CBCon 10-20-2020 Erythrocyte distribution width (RBC) [Ratio] 15.2 % High 11.5 - 14.5 [facility] Comment on above: Performed By: #### C BC #### [facility] [address] [place] [address] Hematocrit (Bld) [Volume fraction] 32.0 % Low 36.0 - 46.0 [facility] Comment on above: Performed By: #### C BC #### [facility] [address] [place] [address] Hemoglobin (Bld) [Mass/Vol] 10.4 g/dL Low 12.0 - 16.0 [facility] Comment on above: Performed By: #### C BC #### [facility] [address] [place] [address] MCHC (RBC) [Mass/Vol] 32.5 g/dL Normal 32.0 - 36.0 [facility] Comment on above: Performed By: #### C BC #### [facility] [address] [place] [address] MCV (RBC) [Entitic vol] 88 fL Normal 80 - 100 [facility] Comment on above: Performed By: #### C BC #### [facility] [address] [place] [address] NUCLEATED RBC 0.0 /100 WBC Normal 0.0-0.0 [facility] Comment on above: Performed By: #### C BC #### [facility] [address] [place] [address] Platelets (Bld) [#/Vol] 195 10*3/uL Normal 150 - 450 [facility] Comment on above: Performed By: #### C BC #### [facility] [address] [place] [address] RBC 3.65 x10E12/L Low 4.00 - 5.20 [facility] Comment on above: Performed By: #### C BC #### [facility] [address] [place] [address] WBC (Bld) [#/Vol] 6.5 10*3/uL Normal 4.4 - 11.3 [facility] Comment on above: Performed By: #### C BC #### [facility] [address] [place] [address] COMPREHENSIVE PANELon 2020 Anion gap [Moles/Vol] 8 mmol/L Low 10 - 20 [facility] Comment on above: Order Comment: CRIT POT CALLED RB TO RN KATEY MARTÍNEZ., 10/20/2020 12:27 Performed By: #### M G #### [facility] [address] [place] [address] Potassium [Moles/Vol] 2.9 mmol/L Critically low 3.5 - 5.3 [facility] Comment on above: Order Comment: CRIT POT CALLED RB TO RN KATEY MARTÍNEZ., 10/20/2020 12:27 Result Comment: CRIT POT CALLED RB TO RN KATEY MARTÍNEZ., 10/20/2020 12:27 Performed By: #### M G #### [facility] [address] [place] [address] Albumin [Mass/Vol] 2.4 g/dL Low 3.4 - 5.0 [facility] Comment on above: Order Comment: CRIT POT CALLED RB TO KATEY EDWARD., 10/20/2020 12:27 Performed By: #### M G #### [facility] [address] [place] [address] ALP [Catalytic activity/Vol] 73 U/L Normal 33 - 110 [facility] Comment on above: Order Comment: CRIT POT CALLED RB TO KATEY EDWARD., 10/20/2020 12:27 Performed By: #### M G #### [facility] [address] [place] [address] ALT [Catalytic activity/Vol] 5 U/L Low 7 - 45 [facility] Comment on above: Order Comment: CRIT POT CALLED RB TO KATEY EDWARD., 10/20/2020 12:27 Result Comment: Fani ents treated with Sulfasalazine may generate falsely decreased results for ALT. Performed By: #### M G #### [facility] [address] [place] [address] AST [Catalytic activity/Vol] 6 U/L Low 9 - 39 [facility] Comment on above: Order Comment: CRIT POT CALLED RB TO KATEY EDWARD., 10/20/2020 12:27 Performed By: #### M G #### [facility] [address] [place] [address] Bilirubin [Mass/Vol] 0.6 mg/dL Normal 0.0 - 1.2 [facility] Comment on above: Order Comment: CRIT POT CALLED RB TO KATEY EDWARD., 10/20/2020 12:27 Performed By: #### M G #### [facility] [address] [place] [address] Calcium [Mass/Vol] 7.6 mg/dL Low 8.6 - 10.6 [facility] Comment on above: Order Comment: CRIT POT CALLED RB TO KATEY EDWARD., 10/20/2020 12:27 Performed By: #### M G #### [facility] [address] [place] [address] Chloride [Moles/Vol] 101 mmol/L Normal 98 - 107 [facility] Comment on above: Order Comment: [place] POT CALLED RB TO KATEY EDWARD., 10/20/2020 12:27 Performed By: #### M G #### [facility] [address] [place] [address] Creatinine [Mass/Vol] 0.61 mg/dL Normal 0.50 - 1.05 [facility] Comment on above: Order Comment: [place] POT CALLED RB TO KATEY EDWARD., 10/20/2020 12:27 Performed By: #### M G #### [facility] [address] [place] [address] GFR- AM. >60 Normal >60 [facility] Comment on above: Order Comment: [place] POT CALLED RB TO KATEY EDWARD., 10/20/2020 12:27 Result Comment: CALC ULATIONS OF ESTIMATED GFR ARE PERFORMED USING THE MDRD STUDY EQUATION FOR THE IDMS-TRACEABLE CREATININE METHODS. CLIN CHEM 2007;53:766-72 Performed By: #### M G #### [facility] [address] [place] [address] GFR-NON AM. >60 Normal >60 [facility] Comment on above: Order Comment: WESTONT POT CALLED RB TO KATEY EDWARD., 10/20/2020 12:27 Performed By: #### M G #### [facility] [address] [place] [address] Glucose [Mass/Vol] 84 mg/dL Normal 74 - 99 [facility] Comment on above: Order Comment: WESTONT POT CALLED RB TO KATEY EDWARD., 10/20/2020 12:27 Performed By: #### M G #### [facility] [address] [place] [address] HCO3 (Bld) [Moles/Vol] 33 mmol/L High 21 - 32 [facility] Comment on above: Order Comment: CRIT POT CALLED RB TO KATEY EDWARD., 10/20/2020 12:27 Performed By: #### M G #### [facility] [address] [place] [address] Protein [Mass/Vol] 4.5 g/dL Low 6.4 - 8.2 [facility] Comment on above: Order Comment: CRIT POT CALLED RB TO KATEY EDWARD., 10/20/2020 12:27 Performed By: #### M G #### [facility] [address] [place] [address] Sodium [Moles/Vol] 139 mmol/L Normal 136 - 145 [facility] Comment on above: Order Comment: CRIT POT CALLED RB TO KATEY EDWARD., 10/20/2020 12:27 Performed By: #### M G #### [facility] [address] [place] [address] Urea nitrogen [Mass/Vol] 15 mg/dL Normal 6 - 23 [facility] Comment on above: Order Comment: CRIT POT CALLED RB TO KATEY EDWARD., 10/20/2020 12:27 Performed By: #### M G #### [facility] [address] [place] [address] Clinical Event Note-Bradycar diaon 10-20-2020 Clinical Event Note-Bradycardia Clinical Event: Clinical Event Note: TopicBradycardia Details Called by nursing staff due to patients HR being 40 with BP of 88/50. On arrival patient stated she feels well. Denies any chest pain, SOB, dizziness or headache. EKG was obtained showing sinus bradycardia and a QTc of 590. Patient was also noted to have no urine output recorded since 8am today. Bladder scan was performed and showed patient only had 82ml in her bladder. Patient placed on telemetry. Midnight dose of haldol was held. Given patient has history of CHF and want to avoid volume overloading her we will give 500cc bolus over 2 hours. Will continue to monitor. Morales Mckenna MD PGY-1 General Surgery, #[id number] Electronic Signatures: Morales Mckenna ( (Resident)) (Signed 19-Oct-2020 23:10) Authored: Clinical Event Note Last Updated: 19-Oct-2020 23:10 by Morales Mckenna ( (Resident)) Normal [facility] Clinical Event Note-Walking pulse oxon 10-20-2020 Clinical Event Note-Walking pulse ox Clinical Event: Clinical Event Note: TopicWalking pulse ox Details Walked the floor and desatted to 89% with a heart rate of 78. Electronic Signatures: Jaclyn Waite (RN) (Signed 20-Oct-2020 10:11) Authored: Clinical Event Note Last Updated: 20-Oct-2020 10:11 by Jaclyn Waite (RN) Normal [facility] Daily Progress Note-Surgeryo n 10-20-2020 Daily Progress Note-Surgery Service: Surgery Subjective Data: BHARAT MANZANARES is a 55 year old Female who is Hospital Day # 3. Bradycardic into high 30s overnight with BP of 80/40. Given IVF and EKG done showing sinus aleena with Qtc 590. Patient examined at bedside this morning. She denied any symptoms overnight such as dizziness, lightheadedness, palpitations, chest pain, or shortness of breath. Denies pain or nausea this morning. Objective Data: Objective Information: T PRBPSpO2 [id number]/6392% Date/Time10/20 6: 6: 6: 6: 6:04 Range(36.5C - 36.7C ) (40 - 47 ) (18 - 20 ) (80 - 112 )/ (49 - 63 ) (92% - 94% ) Pain reported at 10/20 9:30: 0 = None Physical Exam by System: Constitutional: Tired looking female, no distress, alert and cooperative Eyes: EOMI, clear sclera Head/Neck: Normocephalic, atraumatic Respiratory/Thorax: Breathing comfortably on room air. No respiratory distress. Cardiovascular: No tachycardia. Gastrointestinal: Nondistended, soft, non-tender, no rebound tenderness Musculoskeletal: ROM intact in all 4 extremities Neurological: Awake, alert, oriented. Psychological: Appropriate mood and behavior Skin: Warm and dry Medication: Medications: Continuous Medications -------- 1. Dextrose 5% - NaCL 0.45% Infusion: 1000 mL IntraVenous 2. TPN Standard- Amino Acids 5 % - Dextrose 15%: 2000 mL IntraVenous Scheduled Medications -------- 1. Fat Emulsion 20% (SMOFLIPID) Infusion: 180 mL IntraVenous Piggyback 2. Insulin Lispro Mild Corrective Scale: unit(s) SubCutaneous 3 Times a Day Before Meals 3. Levothyroxine Injectable: 87.5 microgram(s) IntraVenous Push Daily 4. Nicotine 14 mg/ 24 hour TransDermal: 1 patch TransDermal Every 24 Hours 5. Potassium Chloride 40 mEq/Sterile Water 100 mL Premix IVPB: 40 mEq IntraVenous Piggyback Once 6. Sodium Chloride 0.9% Injectable Flush: 10 mL IntraVenous Flush Every 12 Hours 7. Technetium Tc 99m Sulfur Colloid - (Radiology Contrast): 500 microCurie Oral Once PRN Medications -------- 1. Albuterol 2.5mg - Ipratropium 0.5 mg/ 3mL Neb Soln: 3 mL Inhalation Every 6 Hours 2. Dextrose 50% in Water Injectable: 25 gram(s) IntraVenous Push Every 15 Minutes 3. Glucagon Injectable: 1 mg IntraMuscular Every 15 Minutes Conditional Medication Orders -------- 1. Perflutren Lipid Microsphere (Activated) 1.3 mL / NaCL 0.9% T.V. 10 mL Injectable: 0.5 mL IntraVenous Push Once Currently Suspended Medications -------- 1. Atorvastatin: 20 mg Oral Daily 2. Haloperidol Lactate Injectable: 2 mg IntraVenous Push Every 12 Hours 3. Ondansetron Injectable: 4 mg IntraVenous Push Every 6 Hours 4. Oxybutynin: 5 mg Oral 3 Times a Day Recent Lab Results: Results: I have reviewed these laboratory results: Comprehensive Metabolic Panel 20-Oct-2020 11:14:00 ResultValue Lab Comment: MORENO DURANT CALLED RB TO KATEY EDWARD., 10/20/2020 12:27 Glucose, Serum 84 NA 139 K 2.9 LL CL 101 Bicarbonate, Serum 33 H Anion Gap, Serum 8 L BUN 15 CREAT 0.61 GFR-Non >60 GFR- >60 Calcium, Serum 7.6 L ALB 2.4 L ALKP 73 T Pro 4.5 L T Bili 0.6 Alanine Aminotransferase, Serum 5 L Aspartate Transaminase, Serum 6 L Triglycerides, Serum 20-Oct-2020 11:14:00 ResultValue Triglycerides, Serum 79 . AGE DESIRABLE BORDERLINE HIGH HIGH VERY HIGH 0 D-90 D 19 - 174 ---- ---- ---- 91 D- 9 Y 0 - 74 75 - 99 >/= 100 ---- 10-19 Y 0 - 89 90 - 129 >/= 130 ---- Magnesium, Serum 20-Oct-2020 11:14:00 ResultValue Magnesium, Serum 1.52 L Phosphorus, Serum 20-Oct-2020 11:14:00 ResultValue Phosphorus, Serum 2.6 Complete Blood Count 20-Oct-2020 07:39:00 ResultValue White Blood Cell Count 6.5 Nucleated Erythrocyte Count 0.0 Red Blood Cell Count 3.65 L HGB 10.4 L HCT 32.0 L MCV 88 MCHC 32.5 PLT 195 RDW-CV 15.2 H Radiology Results: Results: Impression: 1. Patulous dilated esophagus with severe narrowing at the GE junction without passage of contrast more distally beyond this point during the examination. Differential considerations include stricture secondary to primary achalasia or due to malignancy (secondary achalasia). 2. Left basilar opacity, likely representing a combination of atelectasis/consolidatio n and small left pleural effusion. Correlate with concern for aspiration pneumonia/pneumonitis given the above-mentioned esophageal findings. Xray Upper GI with KUB [Oct 20 2020 9:15AM] Assessment and Plan: Code Status: Code StatusFull Code Assessment: Assessment: BHARAT MANZANARES is a 55 year old Female with a PMH significant for CHF, COPD, T2DM, hypothyroidism, and cerebral palsy who presented to the ED for chronic dysphagia and inability to tolerate ariadna (more content not included)... Normal [facility] Echocardiogramon 10-20-2020 Echocardiography [facility], [address] [place] [id number] and TRANSTHORACIC ECHOCARDIOGRAM REPORT Patient Name: BHARAT MANZANARES Reading Physician: [id number] Hector Parikh MD Study Date: 10/20/2020 Referring Tawnya Ramirez MD Physician: MRN/PID: [id number] PCP: Accession/Order#: [id number] Department [facility] Non Location: Invasive Date of : 1965 Fellow: Vance Helms MD Gender: F Nurse: Javier Lang RN Admit Date: 10/18/2020 Clinical Research Physician: Sweta Cheney RDCS, DARVIN Admission Status: Inpatient - Additional Staff: Routine Height: 157.48 cm CC Report to: Vida T8 [facility] Weight: 58.97 kg Study Type: Echocardiogram BSA: 1.59 m2 Blood Pressure: 112 /63 mmHg Diagnosis/ICD: R06.00-Dyspnea, unspecified Indication: Dyspnea Procedure/CPT: Echo Complete w Full Doppler-[id number] Patient History: Diabetes: Yes Pertinent History: CHF and COPD. Hypothyroid, Cerebral palsy, bradycardia. Study Detail: The following Echo studies were performed: 2D, M-Mode, Doppler and color flow. Agitated saline used as a contrast agent for intraseptal flow evaluation. PHYSICIAN INTERPRETATION: Left Ventricle: The left ventricular systolic function is normal, with an estimated ejection fraction of 60%. There are no regional wall motion abnormalities. The left ventricular cavity size is normal. Spectral Doppler shows a normal pattern of left ventricular diastolic filling. Left Atrium: The left atrium is normal in size. There is no evidence of a patent foramen ovale. A bubble study using agitated saline was performed. Bubble study is negative. Right Ventricle: The right ventricle is normal in size. There is normal right ventricular global systolic function. Right Atrium: The right atrium is mildly dilated. Aortic Valve: The aortic valve is trileaflet. There is minimal aortic valve cusp calcification. There is no evidence of aortic valve regurgitation. The peak instantaneous gradient of the aortic valve is 8.5 mmHg. Mitral Valve: The mitral valve is normal in structure. There is trace to mild mitral valve regurgitation. Tricuspid Valve: The tricuspid valve is structurally normal. There is trace to mild tricuspid regurgitation. The Doppler estimated RVSP is slightly elevated at 34.5 mmHg. Pulmonic Valve: The pulmonic valve is not well visualized. There is physiologic pulmonic valve regurgitation. Pericardium: There is a trivial pericardial effusion. Pleural: There is bilateral pleural effusion. Aorta: The aortic root is normal. Systemic Veins: The inferior vena cava appears dilated. There is less than 50% IVC collapse with inspiration. In comparison to the previous echocardiogram(s): There are no prior studies on this patient for comparison purposes. CONCLUSIONS: 1. The left ventricular systolic function is normal with a 60% estimated ejection fraction. 2. Slightly elevated RVSP. 3. There is no evidence of a patent foramen ovale. QUANTITATIVE DATA SUMMARY: 2D MEASUREMENTS: Normal Ranges: Ao Root d: 3.07 cm (2.0-3.7cm) LAs: 3.00 cm (2.7-4.0cm) IVSd: 0.70 cm (0.6-1.1cm) LVPWd: 0.80 cm (0.6-1.1cm) LVIDd: 5.20 cm (3.9-5.9cm) LVIDs: 3.20 cm LV Mass Index: 84.1 g/m2 LV % FS 38.5 % LA VOLUME: Normal Ranges: LA Vol A4C: 25.8 ml (22+/-6mL/m2) LA Vol Index A4C: 16.2ml/m2 LA Area A4C: 13.1 cm2 LA Major [place] A4C: 5.7 cm LV SYSTOLIC FUNCTION BY 2D PLANIMETRY (MOD): Normal Ranges: EF-A4C View: 55.2 % (>55%) EF-A2C View: 67.3 % EF-Biplane: 62.1 % LV DIASTOLIC FUNCTION: Normal Ranges: MV Peak E: 0.96 m/s (0.7-1.2 m/s) MV Peak A: 0.77 m/s (0.42-0.7 m/s) E/A Ratio: 1.25 (1.0-2.2) MV e' 0.11 m/s (>8.0) MV lateral e' 0.12 m/s MV medial e' 0.10 m/s MV A Dur: 121.00 msec E/e' Ratio: 8.73 (<8.0) MV DT: 143 msec (150-240 msec) PulmV Sys Miguel: 58.70 cm/s PulmV Puga Miguel: 26.20 cm/s PulmV S/D Miguel: 2.20 PulmV A Revs Miguel: 27.20 cm/s PulmV A Revs Dur: 127.00 msec MITRAL VALVE: Normal Ranges: MV DT: 143 msec (150-240msec) AORTIC VALVE: Normal Ranges: AoV Vmax: 1.46 m/s (<1.7m/s) AoV Peak P.5 mmHg (<20mmHg) LVOT Max Miguel: 1.10 m/s (<1.1m/s) LVOT VTI: 26.60 cm LVOT Diameter: 2.10 cm (1.8-2.4cm) AoV Area,Vmax: 2.61 cm2 (2.5-4.5cm2) RIGHT VENTRICLE: RV 1 3.91 cm RV 2 2.96 cm RV 3 6.32 cm RV s' 0.13 m/s TRICUSPID VALVE/RVSP: Normal Ranges: Peak TR Velocity: 2.21 m/s RV Syst Pressure: 34.5 mmHg (< 30mmHg) PULMONIC VALVE: Normal Ranges: PV Max Miguel: 0.8 m/s (0.6-0.9m/s) PV Max P.8 mmHg Pulmonary Veins: PulmV A Revs Dur: 127.00 msec PulmV A Revs Miguel: 27.20 cm/s PulmV Puga Miguel: 26.20 cm/s PulmV S/D Miguel: 2.20 PulmV Sys Miguel: 58.70 cm/s [id number] Hector Parikh MD Electronically signed on 10/20/2020 at 6:20:56 PM Final Normal [facility] GLUCOSE-POCTon 10-20-2020 Glucose [Mass/Vol] 81 mg/dL Normal 74 - 99 [facility] Comment on above: Performed By: #### T 4FRE #### [facility] [address] [place] [address] Glucose [Mass/Vol] 100 mg/dL High 74 - 99 [facility] Comment on above: Performed By: #### C OVSC #### [facility] [address] [place] [address] Glucose [Mass/Vol] 82 mg/dL Normal 74 - 99 [facility] Comment on above: Performed By: #### G AMBER #### [facility] [address] [place] [address] MAGNESIUMon 10-20-2020 Magnesium [Mass/Vol] 1.52 mg/dL Low 1.60 - 2.40 [facility] Comment on above: Performed By: #### C BC #### [facility] [address] [place] [address] MAGNESIUM Canceled Normal [facility] Comment on above: Order Comment: TEST MAGNESIUM WAS CANCELLED, 10/20/2020 09:32 IV CONTAMINATION. Performed By: #### G AMBER #### [facility] [address] [place] [address] PHOSPHORUSon 10-20-2020 Phosphate [Mass/Vol] 2.6 mg/dL Normal 2.5 - 4.9 [facility] Comment on above: Result Comment: The performance characteristics of phosphorus testing in heparinized plasma have been validated by the individual laboratory site where testing is performed. Testing on heparinized plasma is not approved by the FDA; however, such approval is not necessary. Performed By: #### C BC #### [facility] [address] [place] [address] RENAL FUNCTION PANELon 10-20 Albumin [Mass/Vol] 2.3 g/dL Low 3.4 - 5.0 [facility] Comment on above: Performed By: #### C BC #### [facility] [address] [place] [address] Anion gap [Moles/Vol] 9 mmol/L Low 10 - 20 [facility] Comment on above: Performed By: #### C BC #### [facility] [address] [place] [address] Calcium [Mass/Vol] 7.6 mg/dL Low 8.6 - 10.6 [facility] Comment on above: Performed By: #### C BC #### [facility] [address] [place] [address] Chloride [Moles/Vol] 104 mmol/L Normal 98 - 107 [facility] Comment on above: Performed By: #### C BC #### [facility] [address] [place] [address] Creatinine [Mass/Vol] 0.61 mg/dL Normal 0.50 - 1.05 [facility] Comment on above: Performed By: #### C BC #### [facility] [address] [place] [address] GFR- AM. >60 Normal >60 [facility] Comment on above: Result Comment: CALC ULATIONS OF ESTIMATED GFR ARE PERFORMED USING THE MDRD STUDY EQUATION FOR THE IDMS-TRACEABLE CREATININE METHODS. CLIN CHEM 2007;53:766-72 Performed By: #### C BC #### [facility] [address] [place] [address] GFR-NON AM. >60 Normal >60 [facility] Comment on above: Performed By: #### C BC #### [facility] [address] [place] [address] Glucose [Mass/Vol] 88 mg/dL Normal 74 - 99 [facility] Comment on above: Performed By: #### C BC #### [facility] [address] [place] [address] HCO3 (Bld) [Moles/Vol] 32 mmol/L Normal 21 - 32 [facility] Comment on above: Performed By: #### C BC #### [facility] [address] [place] [address] Phosphate [Mass/Vol] 2.3 mg/dL Low 2.5 - 4.9 [facility] Comment on above: Result Comment: The performance characteristics of phosphorus testing in heparinized plasma have been validated by the individual laboratory site where testing is performed. Testing on heparinized plasma is not approved by the FDA; however, such approval is not necessary. Performed By: #### C BC #### [facility] [address] [place] [address] Potassium [Moles/Vol] 3.2 mmol/L Low 3.5 - 5.3 [facility] Comment on above: Performed By: #### C BC #### [facility] [address] [place] [address] Sodium [Moles/Vol] 142 mmol/L Normal 136 - 145 [facility] Comment on above: Performed By: #### C BC #### [facility] [address] [place] [address] Urea nitrogen [Mass/Vol] 12 mg/dL Normal 6 - 23 [facility] Comment on above: Performed By: #### C BC #### [facility] [address] [place] [address] ALBUMIN Canceled Normal [facility] Comment on above: Order Comment: TEST RENAL FUNCTION PANEL WAS CANCELLED, 10/20/2020 09:32 IV CONTAMINATION. Performed By: #### G AMBER #### [facility] [address] [place] [address] ANION GAP Canceled Normal [facility] Comment on above: Order Comment: TEST RENAL FUNCTION PANEL WAS CANCELLED, 10/20/2020 09:32 IV CONTAMINATION. Performed By: #### G AMBER #### [facility] [address] [place] [address] BICARBONATE Canceled Normal [facility] Comment on above: Order Comment: TEST RENAL FUNCTION PANEL WAS CANCELLED, 10/20/2020 09:32 IV CONTAMINATION. Performed By: #### G AMBER #### [facility] [address] [place] [address] CALCIUM Canceled Normal [facility] Comment on above: Order Comment: TEST RENAL FUNCTION PANEL WAS CANCELLED, 10/20/2020 09:32 IV CONTAMINATION. Performed By: #### G AMBER #### [facility] [address] [place] [address] CHLORIDE Canceled Normal [facility] Comment on above: Order Comment: TEST RENAL FUNCTION PANEL WAS CANCELLED, 10/20/2020 09:32 IV CONTAMINATION. Performed By: #### G AMBER #### [facility] [address] [place] [address] CREATININE Canceled Normal [facility] Comment on above: Order Comment: TEST RENAL FUNCTION PANEL WAS CANCELLED, 10/20/2020 09:32 IV CONTAMINATION. Performed By: #### G AMBER #### [facility] [address] [place] [address] GFR- AM. Canceled Normal [facility] Comment on above: Order Comment: TEST RENAL FUNCTION PANEL WAS CANCELLED, 10/20/2020 09:32 IV CONTAMINATION. Result Comment: CALC ULATIONS OF ESTIMATED GFR ARE PERFORMED USING THE MDRD STUDY EQUATION FOR THE IDMS-TRACEABLE CREATININE METHODS. CLIN CHEM 2007;53:766-72 Performed By: #### G AMBER #### [facility] [address] [place] [address] GFR-NON AM. Canceled Normal [facility] Comment on above: Order Comment: TEST RENAL FUNCTION PANEL WAS CANCELLED, 10/20/2020 09:32 IV CONTAMINATION. Performed By: #### G AMBER #### [facility] [address] [place] [address] GLUCOSE Canceled Normal [facility] Comment on above: Order Comment: TEST RENAL FUNCTION PANEL WAS CANCELLED, 10/20/2020 09:32 IV CONTAMINATION. Performed By: #### G AMBER #### [facility] [address] [place] [address] PHOSPHORUS Canceled Normal [facility] Comment on above: Order Comment: TEST RENAL FUNCTION PANEL WAS CANCELLED, 10/20/2020 09:32 IV CONTAMINATION. Result Comment: The performance characteristics of phosphorus testing in heparinized plasma have been validated by the individual laboratory site where testing is performed. Testing on heparinized plasma is not approved by the FDA; however, such approval is not necessary. Performed By: #### G AMBER #### [facility] [address] [place] [address] POTASSIUM Canceled Normal [facility] Comment on above: Order Comment: TEST RENAL FUNCTION PANEL WAS CANCELLED, 10/20/2020 09:32 IV CONTAMINATION. Performed By: #### G AMBER #### [facility] [address] [place] [address] SODIUM Canceled Normal [facility] Comment on above: Order Comment: TEST RENAL FUNCTION PANEL WAS CANCELLED, 10/20/2020 09:32 IV CONTAMINATION. Performed By: #### G AMBER #### [facility] [address] [place] [address] UREA NITROGEN Canceled Normal [facility] Comment on above: Order Comment: TEST RENAL FUNCTION PANEL WAS CANCELLED, 10/20/2020 09:32 IV CONTAMINATION. Performed By: #### G AMBER #### [facility] [address] [place] [address] RESPIRATORY CULT./SM,LOWERon 10-20-2020 RESPIRATORY CULT./SM,LOWER PATIENT: BHARAT MANZANARES LOCATION: [place] [address] BILL#: [id number] : 61 AGE: SEX: F ORDERED BY: TAWNYA RAMIREZ SOURCE: SPUTUM COLLECTED: 10/20/20 19:43 ANTIBIOTICS AT KEN.: RECEIVED : 10/20/20 22:07 SITE: R E S U L T S GRAM STAIN FINAL 10/20/20 23:11 GRAM STAIN INDICATES SPECIMEN CONSISTS OF LOWER RESPIRATORY TRACT SECRETIONS. NO PREDOMINANT ORGANISM. RESPIRATORY CULT./SM,LOWER FINAL 10/22/20 07:26 NORMAL THROAT LUISA, CULTURE IN PROGRESS. NORMAL THROAT LUISA. Normal [facility] Comment on above: Performed By: #### C OVSC #### [facility] [address] [place] [address] TRIGLYCERIDESon 10-20-2020 Triglyceride [Mass/Vol] 79 mg/dL Normal 0 - 149 [facility] Comment on above: Result Comment: . AGE DESIRABLE BORDERLINE HIGH HIGH VERY HIGH 0 D-90 D 19 - 174 ---- ---- ---- 91 D- 9 Y 0 - 74 75 - 99 >/= 100 ---- 10-19 Y 0 - 89 90 - 129 >/= 130 ---- 20-24 Y 0 - 114 115 - 149 >/= 150 ---- >24 Y 0 - 149 150 - 199 200- 499 >/= 500 . Venipuncture immediately after or during the administration of Metamizole may lead to falsely low results. Testing should be performed immediately prior to Metamizole dosing. Performed By: #### M G #### [facility] [address] [place] [address] TROPONIN Ion 10-20-2020 Troponin I.cardiac [Mass/Vol] ng/mL Normal 0.00 - 0.03 [facility] Comment on above: Result Comment: LESS THAN 0.04 NG/ML: NEGATIVE REPEAT TESTING IN THREE TO SIX HOURS IF CLINICALLY INDICATED. 0.04 - 0.5 NG/ML: CONSISTENT WITH POSSIBLE CARDIAC DAMAGE AND POSSIBLE INCREASED CLINICAL RISK. SERIAL MEASUREMENTS MAY HELP ASSESS EXTENT OF MYOCARDIAL DAMAGE. >0.5 NG/ML: CONSISTENT WITH CARDIAC DAMAGE, INCREASED CLINICAL RISK AND MYOCARDIAL INFARCTION. SERIAL MEASUREMENTS MAY HELP ASSESS EXTENT OF MYOCARDIAL DAMAGE. . Note: Troponin I testing is performed using different testing methodology at [facility] than at other [facility]. Direct result comparisons should only be made within the same method. . Biotin interference may cause falsely decreased results. Patients taking a Biotin dose of up to 5 mg/day should refrain from taking Biotin for 24 hours before sample collection. Providers may contact their laboratory for further information. Performed By: #### C BC #### [facility] [address] [place] [address] Admission Risk Screen - Adul ton 10-19-2020 Admission Risk Screen - Adult Allergies: Allergies: NKDA: Dust: Unknown Patient Verification: New W ID Band Applied in my Departmentyes Patient Identity Verified Bypatient ID Band FULL Name, include Middle, spelling matches patient's ID used for verificationyes ID Band Matches Patient ID used for Verficationyes ID Band MRN Matches EMR MRNyes Visitor Restriction: Coronavirus Visitor Restriction: Reasonable restrictions to in-person visitors will be observed due to current coronavirus pandemic. Travel History: COVID-19 Screening Completedno exposure or symptoms Advance Directive: Advance Directive/DNRno Advance Directive Information Givenpatient/family declined Cee Fall Screen: History of falling (immediate or previous)no (0) Secondary Diagnosisyes (15) Intravenous Therapy/ Heparin/Saline Lockyes (20) Gait/Transferringweak (10) Ambulatory Aidsnone/bedrest/nurse assist (0) Mental Statusoriented to own ability (0) Score: Low risk (<25). Moderate risk (25-44). High risk (>44).45 Cee InterventionsHIGH INTERVENTIONS *Low and Moderate Interventions Plus: * supervised toileting at all times Family Violence Screen: Are you or have you been threatened or abused physically, emotionally, or sexually by anyoneno Do you feel UNSAFE going back to the place where you are livingno Clinical assessment: Are there any apparent signs of injuries/behaviors that could be related to abuse/neglectno Social Service Consult for abuse/neglect needed this visitno Functional Screen: Functional Screen: In the recent/past 2-4 weeks, patient or family have noticedno issues that require a speech/language consult at this time AM-PAC- Basic Mobility/Daily Activity: Patient baseline bedboundno Learning Assessment (Patient): Patient is Able to be Assessed for Learningyes Factors Influencing Readiness to Learninterest in learning; motivation to learn Factors that Impact Ability to Learnnone Devices/Methods Used to Communicatenone Learning Preferencesverbal instruction; skill demonstration; written material Cultural Considerationsnone Developmental Considerationsnone Lutheran Considerationsreligious considerations Learning Assessment (Other Learner): Other learner availableno Depression Screen: During the past month, have you often been bothered by feeling down, depressed or hopelessno During the past month, have you often had little interest or pleasure in doing thingsno Have you had any thoughts of harming anyone elseno (1) [place] Suicide: Risk Screen Not Applicable/Able to Answerable to be screened In the Past Month: Have you wished you were or could go to sleep and not wake upno(1) In the Past Month: Have you had any actual thoughts of killing yourself no(1) Lifetime: Have you ever done, started to do, or prepared to do anything to end your lifeno [place] Suicide Risknegative Adult Nutrition Screen: Have you recently lost weight without tryingno Have you been eating poorly because of a decreased appetiteyes Malnutrition Screening Tool Score1 Malnutrition Screening Tool RiskMST = 0 or 1 Not at risk. Eating well with little or no weight loss Nutrition Consult needed this visitno Can Patient Participate in Room Serviceyes Patient requires Paper Dishes/Plastic Utensilsno Pain Screen: Pain Scalenumerical 0-10 Pain Scale Educationteaching provided Current Pain Level0 = None Acceptable Pain Level0 = None Expression of Pain (nonverbal)verbalization Chronic Painno Spiritual Screen: Are there any cultural, spiritual, zoroastrian practices/values/needs that are important for us to knowyes Do you want a visit/item from Pastoral Careyes Is there any particular item/ help you need from Pastoral CareBible requested, prayer / pastoral support Would you like your Sports Recruiter/Research Laboratory Manager notifiedyes pt would like visit CAGE: Is this an injured patient at a Trauma Center ([facility]/[place] /[place]): no Vaccinations: Vaccination - Influenza Vaccination Screen: Is it flu season (between and September 07)No Vaccination - Pneumonia Vaccination Screen: Patient has received a previous pneumonia vaccine:no/unknown... Immunocompetent persons with underlying chronic conditions or reside in longterm care facilitiesnone of these conditions Persons with Functional or Anatomic Asplenianone of these conditions Immunocompromised Personsnone of these conditions Pneumonia vaccine NOT indicated due to:patient DOES NOT have a condition that indicates vaccination Marv: Skin - Marv Scale: Marv: Sensory Perception (response to environment)(3) slightly limited Marv: Moisture (degree skin exposed to moisture)(3) occasionally moist Marv: Activity (ability to walk)(3) walks occasionally Marv: Mobility (amount/control of body movement)(3) slightly limited Marv: Nutrition (quality of food intake)(2) probab (more content not included)... Normal [facility] BNPon 10-19-2020 Natriuretic peptide B (Bld) [Mass/Vol] 111 pg/mL High 0 - 99 [facility] Comment on above: Result Comment: . <1 00 pg/mL - Heart failure unlikely 100-299 pg/mL - Intermediate probability of acute heart . failure exacerbation. Correlate with clinical . context and patient history. >=300 pg/mL - Heart Failure likely. Correlate with clinical . context and patient history. Biotin interference may cause falsely decreased results. Patients taking a Biotin dose of up to 5 mg/day should refrain from taking Biotin for 24 hours before sample collection. Providers may contact their local laboratory for further information. Performed By: #### C BC #### [facility] [address] [place] [address] CBCon 10-19-2020 Erythrocyte distribution width (RBC) [Ratio] 15.3 % High 11.5 - 14.5 [facility] Comment on above: Performed By: #### C BC #### [facility] [address] [place] [address] Hematocrit (Bld) [Volume fraction] 33.8 % Low 36.0 - 46.0 [facility] Comment on above: Performed By: #### C BC #### [facility] [address] [place] [address] Hemoglobin (Bld) [Mass/Vol] 11.1 g/dL Low 12.0 - 16.0 [facility] Comment on above: Performed By: #### C BC #### [facility] [address] [place] [address] MCHC (RBC) [Mass/Vol] 32.8 g/dL Normal 32.0 - 36.0 [facility] Comment on above: Performed By: #### C BC #### [facility] [address] [place] [address] MCV (RBC) [Entitic vol] 88 fL Normal 80 - 100 [facility] Comment on above: Performed By: #### C BC #### [facility] [address] [place] [address] NUCLEATED RBC 0.0 /100 WBC Normal 0.0-0.0 [facility] Comment on above: Performed By: #### C BC #### [facility] [address] [place] [address] Platelets (Bld) [#/Vol] 203 10*3/uL Normal 150 - 450 [facility] Comment on above: Performed By: #### C BC #### [facility] [address] [place] [address] RBC 3.82 x10E12/L Low 4.00 - 5.20 [facility] Comment on above: Performed By: #### C BC #### [facility] [address] [place] [address] WBC (Bld) [#/Vol] 6.3 10*3/uL Normal 4.4 - 11.3 [facility] Comment on above: Performed By: #### C BC #### [facility] [address] [place] [address] COMPREHENSIVE PANELon 2020 Albumin [Mass/Vol] 2.4 g/dL Low 3.4 - 5.0 [facility] Comment on above: Performed By: #### C BC #### [facility] [address] [place] [address] ALP [Catalytic activity/Vol] 78 U/L Normal 33 - 110 [facility] Comment on above: Performed By: #### C BC #### [facility] [address] [place] [address] ALT [Catalytic activity/Vol] 5 U/L Low 7 - 45 [facility] Comment on above: Result Comment: Fani ents treated with Sulfasalazine may generate falsely decreased results for ALT. Performed By: #### C BC #### [facility] [address] [place] [address] Anion gap [Moles/Vol] 9 mmol/L Low 10 - 20 [facility] Comment on above: Performed By: #### C BC #### [facility] [address] [place] [address] AST [Catalytic activity/Vol] 8 U/L Low 9 - 39 [facility] Comment on above: Performed By: #### C BC #### [facility] [address] [place] [address] Bilirubin [Mass/Vol] 0.5 mg/dL Normal 0.0 - 1.2 [facility] Comment on above: Performed By: #### C BC #### [facility] [address] [place] [address] Calcium [Mass/Vol] 7.9 mg/dL Low 8.6 - 10.6 [facility] Comment on above: Performed By: #### C BC #### [facility] [address] [place] [address] Chloride [Moles/Vol] 102 mmol/L Normal 98 - 107 [facility] Comment on above: Performed By: #### C BC #### [facility] [address] [place] [address] Creatinine [Mass/Vol] 0.64 mg/dL Normal 0.50 - 1.05 [facility] Comment on above: Performed By: #### C BC #### [facility] [address] [place] [address] GFR- AM. >60 Normal >60 [facility] Comment on above: Result Comment: CALC ULATIONS OF ESTIMATED GFR ARE PERFORMED USING THE MDRD STUDY EQUATION FOR THE IDMS-TRACEABLE CREATININE METHODS. CLIN CHEM 2007;53:766-72 Performed By: #### C BC #### [facility] [address] [place] [address] GFR-NON AM. >60 Normal >60 [facility] Comment on above: Performed By: #### C BC #### [facility] [address] [place] [address] Glucose [Mass/Vol] 73 mg/dL Low 74 - 99 [facility] Comment on above: Performed By: #### C BC #### [facility] [address] [place] [address] HCO3 (Bld) [Moles/Vol] 32 mmol/L Normal 21 - 32 [facility] Comment on above: Performed By: #### C BC #### [facility] [address] [place] [address] Potassium [Moles/Vol] 3.1 mmol/L Low 3.5 - 5.3 [facility] Comment on above: Performed By: #### C BC #### [facility] [address] [place] [address] Protein [Mass/Vol] 4.7 g/dL Low 6.4 - 8.2 [facility] Comment on above: Performed By: #### C BC #### [facility] [address] [place] [address] Sodium [Moles/Vol] 140 mmol/L Normal 136 - 145 [facility] Comment on above: Performed By: #### C BC #### [facility] [address] [place] [address] Urea nitrogen [Mass/Vol] 20 mg/dL Normal 6 - 23 [facility] Comment on above: Performed By: #### C #### [facility] [address] [place] [address] Clinical Event Note-PICC Del araceli 10-19-2020 Clinical Event Note-PICC Delay Clinical Event: Clinical Event Note: TopicPICC Delay Details Patient is off the floor. Electronic Signatures: Kendy Moya (RN) (Signed 19-Oct-2020 12:57) Authored: Clinical Event Note Last Updated: 19-Oct-2020 12:57 by Kendy Moya (SHANA) Normal [facility] Daily Progress Note-Surgeryo n 10-19-2020 Daily Progress Note-Surgery Service: Surgery Subjective Data: BHARAT MANZANARES is a 55 year old Female who is Hospital Day # 2. Additional Information: Patient feels OK. However still continues to have PO intolerance. Was not able to tolerate broth or medications overnight. Denies abdominal pain. Objective Data: Objective Information: T PRBPSpO2 [id number]/6493% Date/Time10/19 5:125 5:125 5:125 5:125 5:12 Range(36.1C - 36.2C ) (49 - 61 ) (16 - 20 ) (92 - 103 )/ (47 - 64 ) (93% - 95% ) Pain reported at 10/18 20:45: 0 = None Physical Exam by System: Constitutional: Tired looking female, no distress, alert and cooperative Eyes: EOMI, clear sclera Head/Neck: Normocephalic, atraumatic Respiratory/Thorax: Breathing comfortably on room air. No respiratory distress. Cardiovascular: No tachycardia. Gastrointestinal: Nondistended, soft, non-tender, no rebound tenderness Musculoskeletal: ROM intact in all 4 extremities Psychological: Appropriate mood and behavior Skin: Warm and dry Medication: Medications: Continuous Medications -------- 1. Dextrose 5% - NaCL 0.45% Infusion: 1000 mL IntraVenous Scheduled Medications -------- 1. Haloperidol Lactate Injectable: 2 mg IntraVenous Push Every 12 Hours 2. Insulin Lispro Mild Corrective Scale: unit(s) SubCutaneous 3 Times a Day Before Meals 3. Levothyroxine Injectable: 87.5 microgram(s) IntraVenous Push Daily PRN Medications -------- 1. Dextrose 50% in Water Injectable: 25 gram(s) IntraVenous Push Every 15 Minutes 2. Glucagon Injectable: 1 mg IntraMuscular Every 15 Minutes 3. Ondansetron Injectable: 4 mg IntraVenous Push Every 6 Hours Currently Suspended Medications -------- 1. Atorvastatin: 20 mg Oral Daily 2. Oxybutynin: 5 mg Oral 3 Times a Day Recent Lab Results: Results: CBC: 10/18/2020 12:46 \ Hgb / \ 11.9 L / WBC Plt 9.9 237 / Hct \ / 35.2 L \ RBC: 4.19 MCV: 84 Neutrophil %: 79.7 CMP: 10/18/2020 12:46 NA+ Cl- BUN / 141 101 21 / -------- Glucose --- 78 K+ HCO3- Creat \ 3.1 L 32 0.79 \ \ T Bili / \ 0.5 / AST x ---- x ALT 9 x ---- x 6 L / Alk P \ / 88 \ Calcium : 8.5 L Anion Gap : 11 Albumin : 3.0 L T Protein : 5.8 L Radiology Results: Results: Impression: Left basilar pneumonia in the proper clinical setting. Radiographic follow-up to resolution is advised Xray Chest 2 View PA + Lateral [Oct 18 2020 1:37PM] Assessment and Plan: Code Status: Code StatusFull Code Assessment: Assessment: BHARAT MANZANARES is a 55 year old Female with a PMH significant for CHF, COPD, T2DM, hypothyroidism, and cerebral palsy who presented to the ED for chronic dysphagia and inability to tolerate solid foods, liquids, or medications. Continue to have PO intolerance with PO fluid/medications. Plan: Neuro: Tylenol PRN for pain. CV: Restart home medications pending med rec from patient's pharmacy Resp: On room air. GI: Upper GI this AM, consult francisca-operative medicine for evaluation / optimization. : urinating spontaneously ID: No Abx indicated at this time Endo: Elevated TSH with low T4, likely 2/2 medication intolerance. Continue home levothyroxine in IV. MSK: Encourage up out of bed. FEN: Full liquid diet. continue IVF. Possible PICC and TPN pending UGI Plan discussed with Dr. Mcknight. Madi Ornelas MD PGY 1 General Surgery [facility] pager [phone] Signature/Cosignature/At testation: Note Completion: I am a: Resident/Fellow Attending AttestationI saw and evaluated the patient. I personally obtained the ramsey and critical portions of the history and physical exam or was physically present for ramsey and critical portions performed by the resident/fellow. I reviewed the resident/fellows documentation and discussed the patient with the resident/fellow. I agree with the resident/fellows medical decision making as documented in the note. I personally evaluated the patient [id number] Consult Billing - Observation Patients: Consult Billing Time: Prep Time on Date of Patient Encounter (minutes): 10 /minutes Time Directly with Patient/Family/Caregiver (minutes): 10 /minutes Total Time (minutes): 20 Electronic Signatures: Mahesh Mcknight) (Signed 19-Oct-2020 08:19) Authored: Note Completion, Consult Billing - Observation Patients Co-Signer: Assessment and Plan, Note Completion Madi Ornelas (Resident)) (Signed 19-Oct-2020 08:15) Authored: Service, Subjective Data, Objective Data, Assessment and Plan, Note Completion Last Updated: 19-Oct-2020 08:19 by Mahesh Mcknight) Normal [facility] Discharge Planning [id number] 10-19-2020 Discharge Planning Note2 Discharge Planning: Planned Dispositionhome with homecare Anticipated Discharge [id number] Discharge Planning TCC note 10/19/2020 0900 Pt assessed, sees a ACOUSTICS TEACHER through [employer], pt states the ACOUSTICS TEACHER is setting up hc via [facility], called to verify at [phone]. ACOUSTICS TEACHER name is Jessenia cain. Their office said her hc was discontinued september . If pt needs hc contact them to set it up. Plan upper GI, picc, possible TPN Kanwal Carrion RN TCC 10/24/20 @ 1500 Patient Statistical Machine Mechanic note: Notified by TCC that patient was previously active with [facility]. Provided home care list to from [facility] directory that includes agencies that are within [facility], patients insurance, meets patients medical needs, and in discharge zip code that patient prefers, and identifies each agencies [facility] star rating. Resumption of care referral submitted to [facility] and is currently under review. YVONNE Lopze 10/26/2020 @ 3:41pm Transitional Care Coordination Progress Note: Patient was discussed during interdisciplinary rounds. Team members present: medical team, CRYSTAL, YVONNE, MD and TCC. Plan per medical team: Esophagram today no leaks advance diet to CLR Payer: Martin Ramires Status: inpatient Discharge disposition: home with homecare Potential barriers: None ADOD: 10/28/2020 Kendy EDWARDS,RN 10/27/20 @ 1251 Patient Statistical Machine Mechanic note: Final homecare orders sent to [facility] awaiting confirmed start of care. YVONNE Lopez Assessment: Discharge Planning Assessment [id number] Discharge Planning Assessment Completed byKanwal Carrion rN [facility] Primary Contact Name and Numberstu [phone] Stated Reason for AdmissionCant eat keep throwing up(1) [place] ([place]) PCPvasiliy cain ACOUSTICS TEACHER [phone] from [facility] PCP Last Date Seenlast week [facility] Medication Adherence/Afford/Obtainy es Insurancebujessica ramires Lives Withalone(1) Living Arrangementsapartment(1) Recent Falls/ Injury/ Need Assist with Ambulationna Prior Level of Functioningambulatory Equipment Currently Used at [facility] Care Agency/Support ServicesNP is setting up with [facility] DME Supplier Name/Numberna O2 LPMna Home O2 Supplierna Diabetic/Supplies Neededyes Hemodialysis Schedulena Other Needsna Resource/Environmental Concernsnone(1) Social Determinants of Health Identifiedna Special Considerationsna Transportation Home Who/Howparents Anticipated Transition Tohome(1) Services Anticipated at Transitionnone(1) Anticipated Changes Related to Illnessnone Equipment Needed After Dischargenone Electronic Signatures: Kendy Briscoe (COOR) (Signed 26-Oct-2020 15:44) Authored: Discharge Planning Cierra Blevins (RN) (Signed 24-Oct-2020 18:15) Authored: Discharge Planning Kanwal Carrion (CN) (Signed 19-Oct-2020 13:13) Authored: Discharge Planning, Assessment Trinity Chapman (PCN) (Signed 27-Oct-2020 12:53) Authored: Discharge Planning Last Updated: 27-Oct-2020 12:53 by Trinity Chapman (PCN) References: 1. Data Referenced From Patient Profile - Adult v2 19-Oct-2020 05:55 Normal [facility] EMR ADDONon 10-19-2020 ADDON CONFIRMATION REQUEST REC'D Normal [facility] Comment on above: Performed By: #### G AMBER #### [facility] [address] [place] [address] ADDON CONFIRMATION REQUEST REC'D Normal [facility] Comment on above: Performed By: #### C BC #### [facility] [address] [place] [address] ADDON CONFIRMATION REQUEST REC'D Normal [facility] Comment on above: Performed By: #### C OVSC #### [facility] [address] [place] [id number] GI TRACT, UPPER W/KUBon 05- GI TRACT, UPPER W/KUB Patient Name: BHARAT MANZANARES STUDY: GI TRACT, UPPER W/KUB; 10/19/2020 1:47 pm INDICATION: dysphagia. Per physician portal: 55-year-old female with history of cerebral palsy presenting to the ED with complaints of chronic dysphagia and weight loss for over 10 years, previously seen and evaluated by GI at outside hospital and was told she has achalasia, no records available. COMPARISON: Chest radiograph from 10/18/2020 ACCESSION NUMBER(S): [id number] ORDERING CLINICIAN: HERRERA BAUTISTA TECHNIQUE: Initial shearing machine feeder radiograph of the esophagus was obtained. Multiple fluoroscopic spot images were obtained after the administration of 30 mL of Omnipaque 240 contrast. The patient tolerated the procedure well. Fluoroscopic time was 1.9 minutes. Patient unable to tolerate additional imaging due to emesis. FINDINGS: Initial shearing machine feeder image demonstrates left basilar opacity with blunting of the left costophrenic angle. The right lung is clear. Visualized upper abdomen is within normal limits. Fluoroscopic images demonstrate dilated patulous esophagus with retained food particulate. There is free flow of contrast into the distal esophagus with severe narrowing identified at the level of the GE junction. Contrast is not visualized passing more distally beyond this point during the examination. IMPRESSION: 1. Patulous dilated esophagus with severe narrowing at the GE junction without passage of contrast more distally beyond this point during the examination. Differential considerations include stricture secondary to primary achalasia or due to malignancy (secondary achalasia). 2. Left basilar opacity, likely representing a combination of atelectasis/consolidatio n and small left pleural effusion. Correlate with concern for aspiration pneumonia/pneumonitis given the above-mentioned esophageal findings. I personally reviewed the images/study and I agree with the findings as stated. This study was interpreted at [place], [place]. Electronically signed by: VEITA GORDON MD Normal [facility] GLUCOSE-POCTon 10-19-2020 Glucose [Mass/Vol] 83 mg/dL Normal 74 - 99 [facility] Comment on above: Performed By: #### C BC #### [facility] [address] [place] [address] Glucose [Mass/Vol] 69 mg/dL Low 74 - 99 [facility] Comment on above: Performed By: #### C BC #### [facility] [address] [place] [address] Glucose [Mass/Vol] 74 mg/dL Normal 74 - 99 [facility] Comment on above: Performed By: #### B MP #### [facility] [address] [place] [address] Glucose [Mass/Vol] 75 mg/dL Normal 74 - 99 [facility] Comment on above: Performed By: #### B MP #### [facility] [address] [place] [address] HEMOGLOBIN A1Con 10-19-2020 Glucose [Mass/Vol] 128 mg/dL Normal [facility] Comment on above: Performed By: #### C BC #### [facility] [address] [place] [address] HbA1c (Bld) [Mass fraction] 6.1 % Normal [facility] Comment on above: Result Comment: Diag nosis of Diabetes-Adults Non-Diabetic: < or = 5.6% Increased risk for developing diabetes: 5.7-6.4% Diagnostic of diabetes: > or = 6.5% . Monitoring of Diabetes Age (y) Therapeutic Goal (%) Adults: >18 <7.0 Pediatrics: 13-18 <7.5 7-12 <8.0 0- 6 7.5-8.5 [employer] [employer]. Diabetes Care 33(S1), Jun 2009. Performed By: #### C BC #### [facility] [address] [place] [address] MAGNESIUMon 10-19-2020 Magnesium [Mass/Vol] 1.65 mg/dL Normal 1.60 - 2.40 [facility] Comment on above: Performed By: #### C BC #### [facility] [address] [place] [address] Nutrition Therapy-Assessment on 10-19-2020 Nutrition Therapy-Assessment Assessment Subjective/Objective: Note Type: Assessment Note Authored by: Registered Dietitian Highway Truck Driver Pager Number: [phone] Nutrition Note: The patient is a 55 year old Female on hospital day #2, admitted for further evaluation of achalasia. Per pt tentative plan is for upper GI study later this week and possible surgery next week. Nutrition consulted for parenteral nutrition assessment/recommendatio ns. Plan is for PICC placement. Medical Surgical History: CHF, COPD, type 2 DM, hypothyroidism, cerebral palsy Height/Weight: Height in cm: 157.4 centimeter(s) Weight (kg): 59 BMI (kg/m2): 23.814 square meter DBW (kg): 50 %DBW: 118 Weight history/ % weight change: 08/25/20) 65.5 kg 10/19/20) 59 kg -->8.5% wt loss x2 months, reports a 68.2 kg wt loss over the last 12 years Significant Weight Change: yes Recent Lab Results: Results: I have reviewed these laboratory results: Glucose_POCT Trending View [id number] 08:26:00 19-Oct-2020 00:02:00 18-Oct-2020 20:47:00 Glucose-POCT74 75 73 L Comprehensive Metabolic Panel 19-Oct-2020 07:01:00 ResultValue Glucose, Serum 73 L NA 140 K 3.1 L CL 102 Bicarbonate, Serum 32 Anion Gap, Serum 9 L BUN 20 CREAT 0.64 GFR-Non >60 GFR- >60 Calcium, Serum 7.9 L ALB 2.4 L ALKP 78 T Pro 4.7 L T Bili 0.5 Alanine Aminotransferase, Serum 5 L Aspartate Transaminase, Serum 8 L Magnesium, Serum 19-Oct-2020 07:01:00 ResultValue Magnesium, Serum 1.65 Current Active Medications/PN: Insulin Lispro Mild Corrective Scale, Give SubCutaneous 3 Times a Day Before Meals Hypoglycemia Protocol Call LIP unit(s) if Blood Glucose is between 0 - 70 0 unit(s) if Blood Glucose is between 71 - 150 2 unit(s) if Blood Glucose is between 151 - 200 4 unit(s) if Blood Glucose is between 201 - 250 6 unit(s) if Blood Glucose is between 251 - 300 8 unit(s) if Blood Glucose is between 301 - 350 10 unit(s) if Blood Glucose is between 351 - 400 Notify Provider unit(s) if Blood Glucose is greater than 400 Notes from Pharmacy: OLAYINKA, 18-Oct-2020 Levothyroxine Injectable, (SYNTHROID) DOSE = 87.5 microgram(s) IntraVenous Push Daily Notes from Pharmacy: Dilute 100 mcg vial with 5 mL Normal Saline. Final Concentration 20 mcg/ mL. Use Immediately, 18-Oct-2020 Dextrose 5% - NaCL 0.45% Infusion, IV Bag Volume = 1,000 mL Run at: 50 mL/hr IntraVenous , 18-Oct-2020 Nutrition Orders: Full Liquid Diet, Routine, 18-Oct-2020 Food/Nutrition Related History: Change in Oral Intake/Appetite: no change GI Symptoms: vomiting Time Frame for GI Symptoms Greater Than 2 Weeks: yes Oral Problems: denies Mobility: normal activity Food Allergies Comment: NKFA Nutritional Supplements: denies Food/Nutrition Related History: Pt reports that she has been unable to tolerated food, liquids, and meds. States that this has been going on for years, but has been progressively getting worse. Generally vomits after each meal--has been ordering mainly liquids on trays and then vomiting into trash can at bedside. Pt is very hopeful she can have surgery to fix the achalasia so she can enjoy her life. Nutrition Focused Physical Findings: Muscle Wasting: Temporal: yes Shoulder: yes Clavicle: yes Scapula/Back: yes Quadriceps: yes Calf: yes Muscle Comment: severe muscle loss @ upper body sites, mild to moderate at lower body sites Loss of Subcutaneous Fat: Eyes: yes Perioral: yes Triceps: yes Chest: yes Subcutaneous Fat Comment: severe Other Physical Findings: Hair: negative Eyes: negative Mouth: mask on Nails: negative Edema: none Change in Metabolic Demand: yes Subjective Global Assessment Rating: severe malnutrition Etiology: chronic illness Estimated Needs: kcals/day: 6479-3313 (25-30 kcal/kg) gms protein/day: 75-90 (1.2-1.5 g/kg) mL fluid/day: 1 ml/kcal Nutrition Diagnosis: Diagnosis1 new. Dx: Severe protein calorie malnutrition. related to altered GI function as evidenced by severe muscle loss, severe subcutaneous fat loss, and wt loss of 8.5% x2 months. Nutrition Interventions: Individualized Nutrition Prescription Provided for: diet, parenteral nutrition Ordered Supplements: may order as desired by pt, diet likely for pleasure at this time Nutrition Goals: Goals: Nutrition Therapy: nutrition support is meeting 75% of nutrient needs, Blood Glucose 80-180 mg/dl, electrolytes within normal limits NUTRITION RECOMMENDATIONS: Recommendations: 1) Diet for pleasure and per team 2) TPN recommendations outlined below. Please replete and recheck lytes prior to initiation. -Pt at risk for refeeding syndrome -Please check RFP + phos q12h until tolerance is established, replete as needed -IV thiamine x 5-7 days 3) Consider feeding tube placement as able to for longterm nutrition support needs Nutrition The (more content not included)... Normal [facility] PREALBUMINon 10-19-2020 Prealbumin [Mass/Vol] 5.1 mg/dL Low 18.0 - 40.0 [facility] Comment on above: Performed By: #### C BC #### [facility] [address] [place] [address] Patient Profile - Adult v2on 10-19-2020 Patient Profile - Adult v2 Profile: Initial Info: How to be AddressedSheilah Spoken Language PreferredEnglish Stated Reason for AdmissionCant eat keep throwing up Patient Belongingmaria del carmennonrenea Arrived Fromplaya del rey Was Admitted To in Past 90 Daysnone Medications Brought to Hospitalno Are you currently using the Personal Electronic Health Record or MYUHCAREno Are you interested in learning more about MYCARE for the management of your healthdeclined Wants Family/Rep Notified of Admissionno Notify PCPdo not notify PCP Informed of Patient Visiting Rightsyes General Health: Weight in kg59 kilogram(s)(1) Weight in hqi537 pound(s) Weight Methodactual (measured) Scale Typestanding Height in cm157.4 centimeter(s) Height in feet5 feet(1) Height in inches2 inch(es)(1) Height Methodstated BMI (kg/m2)23.814 square meter RSP Based Care: How would you like to participate in your carevery well What is the number one concern for you during this hospitalizationto get well enough to get back home with dog What is the most important thing we can do to support you during this hospitalizationprayer Is there anything we need to know to best care for youhelp me the best you can Substance: Current or Former Substance Use never: Cigarette/Tobacco, e-Cigarette/Vaping, Alcohol, Street Drugs Health Mgmt: Symptoms/Conditions Managed at [facility] Are You no (2) Relationship/Environ: Resource/Environmental Concernsnone Primary Source of Support/Comfortfriend; nonrelative caregiver Lives Withalone Living Arrangementsapartment Services Anticipated at Transitionnone Anticipated Transition Toplaya del rey Significant IndicatorsComplete Information Review: Allergies, Home Meds and Significant Events have been Reviewed and Verified with Patient/Familyyes ALLERGY, INTOLERANCE, ADVERSE EVENT: Allergies: NKDA: Active Dust: Environment, Unknown, Active Problem List: Admitting Dx: Nausea and vomiting: Catalog Name: Nausea with vomiting, unspecified Additional Dx: Type 2 diabetes mellitus: Catalog Name: Type 2 diabetes mellitus Electronic Signatures: Sanna Scruggs) (Signed 12-May-2021 06:06) Authored: Initial Info, General Health, RSP Based Care, Substance, Health Mgmt, Relationship/Environ, Additional Information Last Updated: 19-Oct-2020 06:06 by Sanna Scruggs (SHANA) References: 1. Data Referenced From 1. Vital Signs 18-Oct-2020 11:05 2. Data Referenced From History and Physical 18-Oct-2020 17:58 Normal [facility] CBC AND DIFFERENTIALon 10-18 % AUTOMATED IMMATURE GRAN 0.9 % Normal 0.0 - 0.9 [facility] Comment on above: Result Comment: Edwina ture Granulocyte Count (IG) includes promyelocytes, myelocytes and metamyelocytes but does not include bands. Percent differential counts (%) should be interpreted in the context of the absolute cell counts (cells/L). Performed By: #### C BC #### [facility] [address] [place] [address] Basophils (Bld) [#/Vol] 0.03 10*3/uL Normal 0.00 - 0.10 [facility] Comment on above: Performed By: #### C BC #### [facility] [address] [place] [address] Basophils/100 WBC (Bld) 0.3 % Normal 0.0 - 2.0 [facility] Comment on above: Performed By: #### C BC #### [facility] [address] [place] [address] Eosinophils (Bld) [#/Vol] 0.08 10*3/uL Normal 0.00 - 0.70 [facility] Comment on above: Performed By: #### C BC #### [facility] [address] [place] [address] Eosinophils/100 WBC (Bld) 0.8 % Normal 0.0 - 6.0 [facility] Comment on above: Performed By: #### C BC #### [facility] [address] [place] [address] Erythrocyte distribution width (RBC) [Ratio] 15.4 % High 11.5 - 14.5 [facility] Comment on above: Performed By: #### C BC #### [facility] [address] [place] [address] Hematocrit (Bld) [Volume fraction] 35.2 % Low 36.0 - 46.0 [facility] Comment on above: Performed By: #### C BC #### [facility] [address] [place] [address] Hemoglobin (Bld) [Mass/Vol] 11.9 g/dL Low 12.0 - 16.0 [facility] Comment on above: Performed By: #### C BC #### [facility] [address] [place] [address] Lymphocytes (Bld) [#/Vol] 1.44 10*3/uL Normal 1.20 - 4.80 [facility] Comment on above: Performed By: #### C BC #### [facility] [address] [place] [address] Lymphocytes/100 WBC (Bld) 14.6 % Normal 13.0 - 44.0 [facility] Comment on above: Performed By: #### C BC #### [facility] [address] [place] [address] MCHC (RBC) [Mass/Vol] 33.8 g/dL Normal 32.0 - 36.0 [facility] Comment on above: Performed By: #### C BC #### [facility] [address] [place] [address] MCV (RBC) [Entitic vol] 84 fL Normal 80 - 100 [facility] Comment on above: Performed By: #### C BC #### [facility] [address] [place] [address] Monocytes (Bld) [#/Vol] 0.37 10*3/uL Normal 0.10 - 1.00 [facility] Comment on above: Performed By: #### C BC #### [facility] [address] [place] [address] Monocytes/100 WBC (Bld) 3.7 % Normal 2.0 - 10.0 [facility] Comment on above: Performed By: #### C BC #### [facility] [address] [place] [address] Neutrophils (Bld) [#/Vol] 7.88 10*3/uL High 1.20 - 7.70 [facility] Comment on above: Performed By: #### C BC #### [facility] [address] [place] [address] Neutrophils/100 WBC (Bld) 79.7 % Normal 40.0 - 80.0 [facility] Comment on above: Performed By: #### C BC #### [facility] [address] [place] [address] NUCLEATED RBC 0.0 /100 WBC Normal 0.0-0.0 [facility] Comment on above: Performed By: #### C BC #### [facility] [address] [place] [address] Platelets (Bld) [#/Vol] 237 10*3/uL Normal 150 - 450 [facility] Comment on above: Performed By: #### C BC #### [facility] [address] [place] [address] RBC 4.19 x10E12/L Normal 4.00 - 5.20 [facility] Comment on above: Performed By: #### C BC #### [facility] [address] [place] [address] WBC (Bld) [#/Vol] 9.9 10*3/uL Normal 4.4 - 11.3 [facility] Comment on above: Performed By: #### C BC #### [facility] [address] [place] [address] COMPREHENSIVE PANELon 2020 Albumin [Mass/Vol] 3.0 g/dL Low 3.4 - 5.0 [facility] Comment on above: Performed By: #### C BC #### [facility] [address] [place] [address] ALP [Catalytic activity/Vol] 88 U/L Normal 33 - 110 [facility] Comment on above: Performed By: #### C BC #### [facility] [address] [place] [address] ALT [Catalytic activity/Vol] 6 U/L Low 7 - 45 [facility] Comment on above: Result Comment: Fani ents treated with Sulfasalazine may generate falsely decreased results for ALT. Performed By: #### C BC #### [facility] [address] [place] [address] Anion gap [Moles/Vol] 11 mmol/L Normal 10 - 20 [facility] Comment on above: Performed By: #### C BC #### [facility] [address] [place] [address] AST [Catalytic activity/Vol] 9 U/L Normal 9 - 39 [facility] Comment on above: Performed By: #### C BC #### [facility] [address] [place] [address] Bilirubin [Mass/Vol] 0.5 mg/dL Normal 0.0 - 1.2 [facility] Comment on above: Performed By: #### C BC #### [facility] [address] [place] [address] Calcium [Mass/Vol] 8.5 mg/dL Low 8.6 - 10.6 [facility] Comment on above: Performed By: #### C BC #### [facility] [address] [place] [address] Chloride [Moles/Vol] 101 mmol/L Normal 98 - 107 [facility] Comment on above: Performed By: #### C BC #### [facility] [address] [place] [address] Creatinine [Mass/Vol] 0.79 mg/dL Normal 0.50 - 1.05 [facility] Comment on above: Performed By: #### C BC #### [facility] [address] [place] [address] GFR- AM. >60 Normal >60 [facility] Comment on above: Result Comment: CALC ULATIONS OF ESTIMATED GFR ARE PERFORMED USING THE MDRD STUDY EQUATION FOR THE IDMS-TRACEABLE CREATININE METHODS. CLIN CHEM 2007;53:766-72 Performed By: #### C BC #### [facility] [address] [place] [address] GFR-NON AM. >60 Normal >60 [facility] Comment on above: Performed By: #### C BC #### [facility] [address] [place] [address] Glucose [Mass/Vol] 78 mg/dL Normal 74 - 99 [facility] Comment on above: Performed By: #### C BC #### [facility] [address] [place] [address] HCO3 (Bld) [Moles/Vol] 32 mmol/L Normal 21 - 32 [facility] Comment on above: Performed By: #### C BC #### [facility] [address] [place] [address] Potassium [Moles/Vol] 3.1 mmol/L Low 3.5 - 5.3 [facility] Comment on above: Performed By: #### C BC #### [facility] [address] [place] [address] Protein [Mass/Vol] 5.8 g/dL Low 6.4 - 8.2 [facility] Comment on above: Performed By: #### C BC #### [facility] [address] [place] [address] Sodium [Moles/Vol] 141 mmol/L Normal 136 - 145 [facility] Comment on above: Performed By: #### C BC #### [facility] [address] [place] [address] Urea nitrogen [Mass/Vol] 21 mg/dL Normal 6 - 23 [facility] Comment on above: Performed By: #### C BC #### [facility] [address] [place] [address] CORONAVIRUS 2019, SCREEN ASY MPTOMATICon 10-18-2020 SARS-CoV-2 (COVID-19) RNA CYNTHIA+probe Ql (Unsp spec) Not detected Normal Not Detected [facility] Comment on above: Result Comment: . This assay is designed to detect the ORF1ab and/or S genes of SARS-CoV-2 via nucleic acid amplification. A Not Detected result does not preclude 2019-nCoV infection since the adequacy of sample collection and/or low viral burden may result in presence of viral nucleic acids below the clinical sensitivity of this test method. Fact sheet for providers: www.fda.gov/media/933968/download Fact sheet for patients: www.fda.gov/media/709938/download This test has received FDA Emergency Use Authorization (EUA) and has been verified by [facility] ([facility]). This test is only authorized for the duration of time that circumstances exist to justify the authorization of the emergency use of in vitro diagnostic tests for the detection of SARS-CoV-2 virus and/or diagnosis of COVID-19 infection under section 564(b)(1) of the Act, 21 U.S.C. 360bbb-3(b)(1), unless the authorization is terminated or revoked sooner. [facility] is certified under CLIA-88 as qualified to perform high complexity testing. Testing is performed in the [facility] laboratories located at [address] [place] [address]. Performed By: #### C BC #### [place] [address] Lab Specimen Source Nasal, Nasopharyngeal Normal [facility] Comment on above: Performed By: #### C BC #### [place] [address] Covid 19 Resultson 1 SARS-CoV-2 (COVID-19) RNA CYNTHIA+probe Ql (Unsp spec) NEGATIVE COVID-19 Test Coronaviruses are common world-wide and are the cause of many common colds. SARS-COV2 is a new coronavirus that began circulating worldwide in 2019 so we are calling it COVID-19. It has been estimated that four out of five patients with COVID-19 will recover at home without the need for medical attention. Symptoms of COVID-19 may include cough, fever, shortness of breath, loss of taste or smell and other flu-like symptoms including chills, sore muscles, sore throat, and headache. Severe illness is more common in older people and people with other health problems such as high blood pressure, obesity, and immune system problems. If the test is positive, you have COVID-19. You will be contacted by the ordering physicians office and instructed to remain on home isolation, in accordance with CDC guidelines. You may also be contacted by the [facility] to see if any of your close contacts may have been exposed to the virus and need to quarantine. If the test is negative, you likely do not have COVID-19 at this time, but you still may have a different illness that can spread to other people (like Influenza, or the Flu) and could still be at risk for getting COVID-19. We recommend that you stay away from other people to limit the spread of illness until your symptoms are improving and you are fever-free for 24 hours without the use of fever lowering medications such as acetaminophen or ibuprofen. No test is 100% accurate so if you are still concerned you may have COVID-19, talk to your doctor about the need to continue to stay away from others. Medicines Unless your provider told you not to use the following: Acetaminophen (Tylenol and others) is generally safe. Anti-inflammatory medications, such as Ibuprofen (Advil or Motrin) or Naproxen (Aleve) can also be used. Tbyj-pzq-guradme cough and cold medicines can be used according to the instructions on the package. Some bhvh-agj-wqvqcjl medicines also contain acetaminophen. Make sure you are not taking more than your recommended dose. For those not hospitalized, there is no specific treatment available for this illness. Antibiotics do not treat Coronaviruses. Follow-Up Follow up with your doctor by scheduling a virtual visit or consider follow-up at one of our urgent care fever clinics. If you are having difficulty breathing, or are very weak and having difficulty standing, this is a medical emergency. Call 911 or have someone take you to the nearest emergency room immediately. If possible, wear a facemask. Additional guidance from the CDC for patients who tested POSITIVE for COVID-19 How to isolate: Isolate yourself in a specific room at home and limit your contact with others. Use a separate bathroom from other members of the household, when possible. Leave home only to get essential medical care. Do not go to work, school or public areas. Avoid using public transportation, ride-sharing, or taxis. Restrict contact with pets and other animals. If you must care for your pet or be around animals while you are sick, wash your hands before and after your interaction and wear a facemask. Make sure that shared spaces in the home have good airflow, such as by an air conditioner or an opened window, weather permitting. Personal Hygiene Procedures: Wear a face mask when in the same room as other people or pets. If a face mask interferes with your breathing, others should wear a mask when sharing space with you. Frequent hand-washing: wash your hands with soap and water for at least 20 seconds. If soap and water are not available, use alcohol-based hand commercial finance analyst. Avoid touching your eyes, nose, and mouth with unwashed hands. Household Hygiene Procedures: Avoid sharing personal household items such as dishes, glassware, cups, eating utensils, towels or bedding with other people or pets in your home. After use, these items should be washed with soap and hot water. Disinfect all high-touch surfaces every day with antibacterial cleaning solutions such as Lysol wipes, bleach, cleansers, etc. High-touch surfaces include tabletops, doorknobs, bathroom fixtures, toilets, phones, keyboards, tablets and bedside tables. Immediately clean any surfaces that may have blood, poop or body fluids on them, using antibacterial cleaning solutions such as Lysol wipes, bleach, cleansers, etc. If clothing or bedding come into contact with blood, poop or body fluids, they should be washed immediately. Follow the directions on the laundry detergent and clothing labels but hot water is recommended when possible. Stopping home isolation precautions: If possible, consult your doctor before stopping home isolation precautions. According to the CDC, you can discontinue home isolation precautions when you have met both of these criteria: Your fever and respiratory symptoms have been gone for 24 randy (more content not included)... Normal [facility] GLUCOSE-POCTon 10-18-2020 Glucose [Mass/Vol] 73 mg/dL Low 74 - 99 [facility] Comment on above: Performed By: #### B MP #### [facility] [address] [place] [address] MAGNESIUMon 10-18-2020 Magnesium [Mass/Vol] 1.71 mg/dL Normal 1.60 - 2.40 [facility] Comment on above: Performed By: #### P HOS #### [facility] [address] [place] [address] PHOSPHORUSon 10-18-2020 Phosphate [Mass/Vol] 2.0 mg/dL Low 2.5 - 4.9 [facility] Comment on above: Result Comment: The performance characteristics of phosphorus testing in heparinized plasma have been validated by the individual laboratory site where testing is performed. Testing on heparinized plasma is not approved by the FDA; however, such approval is not necessary. Performed By: #### C #### [facility] [address] [place] [address] Provider Note - ED v2on 10-08 Provider Note - ED v2 Provider Note - ED v2: Chart Review: ED NOTES ED NOTES: HPI Patient is a 55-year-old female with past medical history of hypothyroidism, CHF, COPD, diabetes, and cerebral palsy who presents to the emergency department for progressive inability to tolerate solid and liquid oral intake. She and her describe a 1 to 2-year history of progressive dysphagia leading to a greater than 100 pound weight loss. She was initially able to tolerate liquid intake and has been relying on protein shakes and p.o. over the last 1 to 2 months. Over the last several weeks she has become progressively unable to tolerate liquid intake and has been vomiting every time she attempts to eat or drink anything. She lives in [place] however has seen Dr. Mahesh Mcknight at [facility] in August 2020 for her dysphagia who recommended endoscopy with manometry at that time for evaluation of possible achalasia. Presents today with concerns of vomiting as well as dehydration. Otherwise feels at her baseline and denies recent fever/chills, headache, lightheadedness/dizzines s, chest pain, difficulty breathing, abdominal pain, constipation, diarrhea, and all genitourinary symptoms. ROS A complete 12-point review of systems was performed and is otherwise negative, except as noted in HPI. PMHx/PSHx: Reviewed, documented below per EMR. FamHx: Reviewed, noncontributory to patients presenting complaint. SocHx: Denies etoh, tobacco, illicit drugs. Allergies: Reviewed, documented below per EMR. Medications: Reviewed, documented below per EMR. HPI provided by: patient, chart review History limited by: N/A Physical Examination Vital signs reviewed in nursing triage note, on EMR flow sheets, and at bedside. Vitals interpretation: afebrile, all vital signs WNL. GEN: Well-developed, thin female sitting up in bed in NAD. SKIN: Warm, dry, intact. EYES: Pupils equal, round, reactive to light. EOM grossly intact. Conjunctiva clear. HENT: Normocephalic, atraumatic, mucous membranes dry. NECK: Supple, trachea midline. CV: RRR, normal S1, S2. PULM: Breathing nonlabored on room air, speaks in full sentences. Lungs CTAB. GI: Abd soft, nontender, nondistended. No rebound or guarding. EXT: Symmetric muscle bulk, moves all equally. No joint swelling, trace peripheral edema in all four extremities. NEURO: Alert, answers questions appropriately, follows commands, CN II-XII grossly intact, no gross focal deficits. ED Course/MDM Results: Labs and imaging were ordered for further characterization of the patient's clinical presentation. See section(s) entitled Lab Results, Diagnostic Imaging Results Review for entirety. Notable results listed in MDM. Medical Decision Making This is a 55-year-old female with history of hypothyroidism, CHF, COPD, diabetes, and cerebral palsy who presents to the ED with inability to tolerate solid oral intake, now progressive to dysphagia and vomiting when ingesting liquids. Endorses a greater than 100 pound weight loss over the last 1 to 2 years as a result of this. Has seen Dr. Mahesh Mcknight in clinic in August 2020 with planned endoscopy with manometry for evaluation for concern for achalasia however her symptoms have progressed over the last few weeks, and patient states that she can now no longer keep any food or liquids down at all. Additionally vomiting up her liquid medications. On arrival she is alert, ambulatory, and appears thin but well. All vital signs are within normal limits. Labs including CBC, CMP notable for hypokalemia with K3.1, hypophosphatemia with Phos 2.0 and hypoalbuminemia with albumin 3.0, all indicative of overall poor nutritional status. Her care was discussed with the admitting team who was agreeable to admit patient for upper GI study with possible EGD and intervention. She remained hemodynamically stable while in the ED and was admitted in stable condition. Assessment 1. Dysphagia Disposition - Admitted Discussed with Dr. Leonard. Vance Ibarra, DO PGY-2, Emergency Medicine HISTORY OF PRESENTING ILLNESS BHARAT is a 55 year old Female and was seen by me at 18-Oct-2020 11:46 for a chief complaint of vomiting . Other complaints include: pt states she is being sent in for vomiting, dehydration and has an EGD scheduled for next month(1). Triage Information: Most recent Vital Sign Value Date Temp (F): 96.9 10-18-2020 11:05 Temp (C): 36.1 10-18-2020 11:05 Heart Rate (beats/min): 61 10-18-2020 11:05 Respirations (breaths/min): 16 10-18-2020 11:05 SpO2 (%): 93 10-18-2020 11:05 BP Systolic (mm Hg): 103 10-18-2020 11:05 BP Diastolic (mm Hg): 62 10-18-2020 11:05 PAST MEDICAL HISTORY ATTESTATION: I have reviewed and confirmed nurse's/medic's notes for patient's medications, allergies, and medical, surgical, family and social history ALLERGIES/INTOLERANCES: Allergy Allergen: NKDA Type: Reaction: Allergen: D (more content not included)... Normal [facility] TH CHEST 2 VIEW PA AND LATon 10-18-2020 TH CHEST 2 VIEW PA AND LAT Patient Name: BHARAT MANZANARES STUDY: TH CHEST 2 VIEW PA AND LAT; 10/18/2020 1:26 pm INDICATION: vomiting. COMPARISON: No priors ACCESSION NUMBER(S): [id number] ORDERING CLINICIAN: VANCE IBARRA FINDINGS: Dense left basilar airspace disease is a present. The right lung is clear. No effusion seen. There is no edema. The cardiac silhouette is within normal limits for size. IMPRESSION: Left basilar pneumonia in the proper clinical setting. Radiographic follow-up to resolution is advised Electronically signed by: JAMES JACKSON MD Normal [facility] THYROXINE,FREEon 10-18-2020 THYROXINE,FREE 0.52 ng/dL Low 0.78 - 1.48 [facility] Comment on above: Result Comment: Thyr oxine Free testing is performed using different testing methodology at [facility] than at other [facility]. Direct result comparisons should only be made within the same method. Performed By: #### C BC #### [facility] [id number] [place] [address] TSH WITH REFLEX TO FREE T4 I F ABNORMALon 10-18-2020 TSH Qn 15.26 m[IU]/L High 0.44 - 3.98 [facility] Comment on above: Result Comment: TSH testing is performed using different testing methodology at [facility] than at other [facility]. Direct result comparisons should only be made within the same method. Performed By: #### C #### [facility] [address] [place] [address] Triage - EDon 10-18-2020 Triage - ED Quick Triage: Are You no Have You Given In The Last 6 Weeksno Are You Currently Breastfeedingno Chart Review: ARRIVAL INFORMATION Means of Arrival: Ambulatory Mode of Arrival: pedestrian CHIEF COMPLAINT BHARAT MANZANARES is a Female patient with a chief complaint of vomiting. Other Complaints: pt states she is being sent in for vomiting, dehydration and has an EGD scheduled for next month Triage Date/Time: 18-Oct-2020 11:05 RAPHAEL: 3 Vital Signs: Temperature: 96.9F ( 36.1C) Blood Pressure: 103/62 Mean: Heart Rate: 61 Respiratory Rate: 16 Pulse Oximetry: 93% on room air, no respiratory support. Height: 5 feet 2 inches. 157.4 CM Weight: 130.0 pounds. Calculated 59.0 kg. (stated) Calculated BMI (kg/m2): 23.814 Calculated BSA (m2) 1.61 Amberly Coma Scale: Best Eye Response: (E4) spontaneous Best Motor Response: (M6) obeys commands Best Verbal Response: (V5) oriented Lengby Score: 15 Allergies: yes Patient has homicidal thoughts: no Last Known Well: known Time Last Known Well Date/Time: 18-Oct-2020 Risk Screens Suicide Risk Screen In the Past Month: Have you wished you were or wished you could go to sleep and not wake up no In the Past Month: Have you had any actual thoughts of killing yourself no In Your Lifetime: Have you ever done anything, started to do anything, or prepared to do anything to end your life no Cee Fall Scale Screening Has the patient fallen before (or is the patient in the ED as a result of a fall) has not had a fall Does the patient have an impaired gait does not have impaired gait Is the patient cognitively impaired not cognitively impaired Interventions: Cee Fall Interventions: LOW INTERVENTIONS: *patient oriented to surroundings and call system, * patient/family falls education completed and documented, *patients fall status communicated during bedside handoff, *whiteboard updated, *mode of toileting discussed with patient, *bed in low position with brakes locked, *call light in reach, * non-skid footwear TRAVEL HISTORY Travel History Coronavirus Screening: no exposure or symptoms PAIN Pain Scale Used: LILLY Past Medical History: Past Medical History Reviewedyes Electronic Signatures: Haylie Vazquez (RN) (Signed 18-Oct-2020 11:08) Entered: Risk Screens, Pain, Arrival, Chart Review, Scores, Past Medical History Authored: Quick Triage, Risk Screens, Pain, Arrival, Chart Review, Scores, Past Medical History Last Updated: 18-Oct-2020 11:08 by Haylie Vazquez (RN) Normal [facility] CBC Auto DifferentialOrdered By: Vasiliy Griffin on 10-11-2020 Absolute Eos # 0.13 [employer] [facility] Work Phone: Absolute Immature Granulocyte 0.06 [employer] Work Phone: Absolute Lymph # 1.49 [employer] [facility] Work Phone: Absolute [facility] # 0.52 [facility] Work Phone: Basophils (Bld) [#/Vol] 0.03 10*3/uL [employer] Phone: Basophils/100 WBC (Bld) 0 % 0 - 2 % [facility] Work Phone: Differential Type NOT REPORTED [employer] Phone: Eosinophils/100 WBC (Bld) 1 % 1 - 4 % [employer] Phone: Hematocrit (Bld) [Volume fraction] 36.0 % Low 36.3 - 47.1 % [employer] Phone: Hemoglobin.gastrointest inal spec 1 Ql (Stl) 11.3 g/dL Low 11.9 - 15.1 g/dL [employer] Phone: Immature granulocytes/100 WBC (Bld) 1 % High 0 [employer] Phone: Interpretation and review of laboratory results Abnormal [employer] Phone: Lymphocytes/100 WBC (Bld) 12 % Low 24 - 43 % [employer] Phone: MCH (RBC) [Entitic mass] 28.0 pg 25.2 - 33.5 pg [employer] Phone: MCHC (RBC) [Mass/Vol] 31.4 g/dL 28.4 - 34.8 g/dL [employer] Phone: MCV (RBC) [Entitic vol] 89.1 fL 82.6 - 102.9 fL [employer] Phone: Monocytes/100 WBC (Bld) 4 % 3 - 12 % M [employer] Phone: NRBC Automated 0.0 0.0 per 100 WBC [employer] Phone: Platelet distribution width (Bld) [Ratio] 15.0 % High 11.8 - 14.4 % [employer] Phone: Platelet Estimate NOT REPORTED [employer] Phone: Platelet mean volume (Bld) [Entitic vol] 10.3 fL 8.1 - 13.5 fL [employer] Phone: Platelets (Bld) [#/Vol] 194 10*3/uL [employer] Phone: RBC (Bld) [#/Vol] 4.04 10*6/uL 3.95 - 5.11 m/uL [employer] Phone: RBC (Bld) [#/Vol] ANISOCYTOSIS PRESENT [employer] Phone: Segmented neutrophils/100 WBC (Bld) 82 % High 36 - 65 % [employer] Phone: Segs Absolute 10.74 High [employer] Work Phone: WBC (Bld) [#/Vol] 13.0 10*3/uL High [employer] Work Phone: WBC (Bld) [#/Vol] NOT REPORTED [employer] Phone: Comprehensive Metabolic Pane lOrdered By: Vasiliy Griffin on 10-11-2020 Albumin [Mass/Vol] 2.8 g/dL Low 3.5 - 5.2 g/dL [employer] Phone: Albumin/Globulin [Mass ratio] 1.0 {ratio} [employer] Phone: ALP (Bld) [Catalytic activity/Vol] 79 U/L 35 - 104 U/L [employer] Phone: ALT [Catalytic activity/Vol] U/L Low 5 - 33 U/L [employer] Work Phone: Anion gap [Moles/Vol] 8 mmol/L Low 9 - 17 mmol/L [employer] Phone: AST [Catalytic activity/Vol] 8 U/L <32 [employer] Phone: Bilirubin [Mass/Vol] 0.59 mg/dL 0.3 - 1 .2 mg/dL [employer] Phone: Calcium [Mass/Vol] 8.2 mg/dL Low 8.6 - 10. 4 mg/dL [employer] Phone: Chloride [Moles/Vol] 101 mmol/L 98 - 10 7 mmol/L [employer] Phone: CO2 [Moles/Vol] 28 mmol/L 20 - 31 mmol/L [employer] Phone: Creatinine [Mass/Vol] 0.75 mg/dL 0.50 - 0.90 mg/dL [employer] Phone: Free PSA/Total PSA [Mass fraction] 5.5 g/dL Low 6.4 - 8.3 g/dL [employer] Phone: GFR >60 >60 mL/min [employer] Phone: GFR Non- >60 >60 mL/min [employer] Phone: GFR/1.73 sq M.predicted MDRD (S/P/Bld) [Vol rate/Area] [employer] Phone: Comment on above: Average GFR for 50-5 9 years old: 93 mL/min/1.73sq m Chronic Kidney Disease: <60 mL/min/1.73sq m Kidney failure: <15 mL/min/1.73sq m eGFR calculated using average adult body mass. Additional eGFR calculator available at: http://www.[employer]/multiple_crcl_2012.htm GFR/1.73 sq M.predicted MDRD (S/P/Bld) [Vol rate/Area] NOT REPORTED [employer] Phone: Glucose [Mass/Vol] 81 mg/dL 70 - 99 mg/dL [employer] Phone: Interpretation and review of laboratory results Abnormal [employer] Phone: Potassium [Moles/Vol] 3.7 mmol/L 3.7 - 5.3 mmol/L [employer] Phone: Sodium [Moles/Vol] 137 mmol/L 135 - 144 mmol/L [employer] Phone: Urea nitrogen (BldV) [Mass/Vol] 16 mg/dL 6 - 20 mg/dL [employer] Phone: Urea nitrogen/Creatinine (Bld) [Mass ratio] NOT REPORTED [employer] Phone: No Panel InformationOrdered By: Vasiliy Griffin on 10-11-2020 Interpretation and review of laboratory results Abnormal [employer] Phone: OsmolalityOrdered By: Payam Griffin on 10-11-2020 Serum Osmolality [address] [facility] Work Phone: T4, FreeOrdered By: Vasiliy Griffin on 10-11-2020 Thyroxine, Free 0.52 ng/dL Low 0.93 - 1.70 ng/dL [employer] Work Phone: TSH without ReflexOrdered By : Vasiliy Griffin on 10-11-2020 TSH Qn 21.44 m[IU]/L High [employer] [facility] [employer] Work Phone: BASIC METABOLIC PANELOrdered By: Penny Rodgers on 09-29-2020 Anion gap [Moles/Vol] 8 mmol/L Low 9 - 17 mmol/L [employer] Phone: Calcium [Mass/Vol] 8.2 mg/dL Low 8.6 - 10. 4 mg/dL [employer] Work Phone: Chloride [Moles/Vol] 99 mmol/L 98 - 10 7 mmol/L [employer] Phone: CO2 [Moles/Vol] 30 mmol/L 20 - 31 mmol/L [employer] Phone: Creatinine [Mass/Vol] 0.72 mg/dL 0.50 - 0.90 mg/dL [employer] Phone: GFR >60 >60 mL/min [employer] Work Phone: GFR Non- >60 >60 mL/min [employer] Phone: GFR/1.73 sq M.predicted MDRD (S/P/Bld) [Vol rate/Area] [employer] Phone: Comment on above: Average GFR for 50-5 9 years old: 93 mL/min/1.73sq m Chronic Kidney Disease: <60 mL/min/1.73sq m Kidney failure: <15 mL/min/1.73sq m eGFR calculated using average adult body mass. Additional eGFR calculator available at: http://www.[employer]/multiple_crcl_2012.htm GFR/1.73 sq M.predicted MDRD (S/P/Bld) [Vol rate/Area] NOT REPORTED [employer] Work Phone: Glucose [Mass/Vol] 187 mg/dL High 70 - 99 mg/dL [employer] Work Phone: Interpretation and review of laboratory results Abnormal [employer] Work Phone: Potassium [Moles/Vol] 3.1 mmol/L Low 3.7 - 5.3 mmol/L [employer] Work Phone: Sodium [Moles/Vol] 137 mmol/L 135 - 144 mmol/L [employer] Phone: Urea nitrogen (BldV) [Mass/Vol] 15 mg/dL 6 - 20 mg/dL [employer] Work Phone: Urea nitrogen/Creatinine (Bld) [Mass ratio] NOT REPORTED [employer] Work Phone: CBC WITH AUTO DIFFERENTIALOr dered By: Penny Rodgers on 09-29-2020 Absolute Eos # 0.08 [employer] [facility] Work Phone: Absolute Immature Granulocyte <0.03 [employer] Work Phone: Absolute Lymph # 1.29 [employer] [facility] Work Phone: Absolute [facility] # 0.36 [employer] [facility] Work Phone: Basophils (Bld) [#/Vol] 10*3/uL M [email or web address] Work Phone: Basophils/100 WBC (Bld) 0 % 0 - 2 % M [email or web address] Work Phone: Differential Type NOT REPORTED [employer] Work Phone: Eosinophils/100 WBC (Bld) 1 % 1 - 4 % [employer] Work Phone: Hematocrit (Bld) [Volume fraction] 40.4 % 36.3 - 47.1 % [employer] Phone: Hemoglobin.gastrointest inal spec 1 Ql (Stl) 13.0 g/dL 11.9 - 15.1 g/dL [employer] Phone: Immature granulocytes/100 WBC (Bld) 0 % 0 [employer] Phone: Interpretation and review of laboratory results Abnormal [employer] Phone: Lymphocytes/100 WBC (Bld) 20 % Low 24 - 43 % [employer] Phone: MCH (RBC) [Entitic mass] 28.0 pg 25.2 - 33.5 pg [employer] Phone: MCHC (RBC) [Mass/Vol] 32.2 g/dL 28.4 - 34.8 g/dL [employer] Phone: MCV (RBC) [Entitic vol] 86.9 fL 82.6 - 102.9 fL [employer] Phone: Monocytes/100 WBC (Bld) 6 % 3 - 12 % M [employer] Phone: NRBC Automated 0.0 0.0 per 100 WBC [employer] Phone: Platelet distribution width (Bld) [Ratio] 14.4 % 11.8 - 14.4 % [employer] Phone: Platelet Estimate NOT REPORTED [employer] Phone: Platelet mean volume (Bld) [Entitic vol] 9.7 fL 8.1 - 13.5 fL [employer] Phone: Platelets (Bld) [#/Vol] 179 10*3/uL [employer] Phone: RBC (Bld) [#/Vol] 4.65 10*6/uL 3.95 - 5.11 m/uL [employer] Phone: RBC (Bld) [#/Vol] NOT REPORTED [employer] Phone: Segmented neutrophils/100 WBC (Bld) 73 % High 36 - 65 % [employer] Phone: Segs Absolute 4.59 [employer] Work Phone: WBC (Bld) [#/Vol] 6.4 10*3/uL [employer] Work Phone: WBC (Bld) [#/Vol] NOT REPORTED [employer] Phone: Initial Visit (General Surge ry)on 08-25-2020 Initial Visit (General Surgery) Diagnoses/Problems Dysphagia, unspecified type (787.20) (R13.10) Orders Dysphagia, unspecified type Follow-up PRN Outpatient Follow-up Status: Active Requested for: 25Aug2020 Ordered Stat;For: Dysphagia, unspecified type; Ordered By: Mahesh Mcknight Performed: Due: 23Nov2020 SocHx: Current every day smoker Tobacco Use Screening; Status:Complete; Done: 25Aug2020 Perform:Not Applicable;Ordered; For:SocHx: Current every day smoker; Ordered By:Starla Samano; Patient Discussion/Summary Patient appears to have symptoms consistent with achalasia but would need manometric evaluation of her esophagus to confirm this. I have recommended upper endoscopy with manometry as she does not want to be awake for the procedure. We will see if this can be performed locally as she is coming from far away. If not, we will schedule it with anesthesia in our GI lab. We also had a lengthy discussion of the endoscopic, surgical, and medical treatment for achalasia if she proves to have this based on her manometry. She has extensive underlying comorbid disease and cardiac issues and we have opted for peroral endoscopic myotomy and the risks, benefits, tenderness, complication were explained at length including bleeding, infection, leakage, pneumoperitoneum, pneumothorax, gastroesophageal reflux disease, possible need for subsequent endoscopic or surgical intervention, nonresolution or recurrence in symptoms, and risks of coronavirus infection. Extra esophageal issues such as stroke, heart attack, and were also discussed. We will communicate with her referring physicians to determine if we can have her scheduled for her manometry locally. If not, she will be scheduled for EGD with manometry with anesthesia here at [facility]. She then would be evaluated for proceeding to endoscopic myotomy as needed. COVID-19 Risk Consent for: Peroral endoscopic myotomy Provider has reviewed the risk of gregoria COVID-19 and the impact during the post-operative or post-procedure recovery process. Provider Impressions Patient appears to have symptoms consistent with achalasia but would need manometric evaluation of her esophagus to confirm this. I have recommended upper endoscopy with manometry as she does not want to be awake for the procedure. We will see if this can be performed locally as she is coming from far away. If not, we will schedule it with anesthesia in our GI lab. We also had a lengthy discussion of the endoscopic, surgical, and medical treatment for achalasia if she proves to have this based on her manometry. She has extensive underlying comorbid disease and cardiac issues and we have opted for peroral endoscopic myotomy and the risks, benefits, tenderness, complication were explained at length including bleeding, infection, leakage, pneumoperitoneum, pneumothorax, gastroesophageal reflux disease, possible need for subsequent endoscopic or surgical intervention, nonresolution or recurrence in symptoms, and risks of coronavirus infection. Extra esophageal issues such as stroke, heart attack, and were also discussed. We will communicate with her referring physicians to determine if we can have her scheduled for her manometry locally. If not, she will be scheduled for EGD with manometry with anesthesia here at [facility]. She then would be evaluated for proceeding to endoscopic myotomy as needed. Chief Complaint NPV History of Present IllnessPatient presents for treatment of suspected achalasia. She is a 55-year-old female with a longstanding history of dysphagia and extensive weight loss. She reports a 100 pound weight loss over the last several years. She reports daily spitting up and vomiting of food and inability to tolerate her pills and solid food. She denies chest or abdominal pain. She states that she had an x-ray which confirmed her suspected diagnosis of achalasia as well as an upper endoscopy. We do not have reports for either of these. She has had no manometric evaluation of her esophagus. Past Medical History History of cerebral palsy (V12.49) (Z86.69) Social History Current every day smoker (305.1) (F17.200) Allergies Dust Mite Mixed Allergen Ext SOLN Recorded By: Starla Samano; 08/25/2020 11:59:26 AM Histamine POWD Recorded By: Starla Samano; 08/25/2020 11:59:26 AM Current Meds Medication NameInstruction Advair HFA 115-21 MCG/ACT Inhalation Aerosol Albuterol-Ipratropium 2.5-0.5 MG/3ML SOLN Atorvastatin Calcium 20 MG Oral Tablet Haloperidol 2 MG Oral Tablet Levothyroxine Sodium 175 MCG Oral Tablet metFORMIN HCl - 500 MG Oral Tablet Myrbetriq 50 MG Oral Tablet Extended Release 24 Hour Nicotine 14 MG/24HR Transdermal Patch 24 Hour Oxybutynin Chloride 5 MG Oral Tablet ProAir HFA 108 (90 Base) MCG/ACT Inhalation Aerosol Solution Vitals Vital Signs Recorded: 25Aug2020 11:56AM Okcnyjntlaj18.1 F Heart Rate65 Hbumzgaa193 Zosaltehg91 Height5 ft 2 in Mdnpdn586 lb BMI Ponfychmlj91.97 BSA Calculated1.65 T (more content not included)... Normal [facility] Metabolic Pane [facility] 08-20-2020 Albumin [Mass/Vol] 4.1 g/dL 3.5 - 5.2 g/dL [employer] Work Phone: Albumin/Globulin [Mass ratio] 1.3 {ratio} [employer] Work Phone: ALP [Catalytic activity/Vol] 67 U/L 35 - 104 U/L [employer] Work Phone: ALT [Catalytic activity/Vol] 7 U/L 5 - 33 U/L [employer] Phone: Anion gap [Moles/Vol] 14 mmol/L 9 - 17 mmol/L [employer] Phone: AST [Catalytic activity/Vol] 13 U/L <32 [employer] Phone: Bilirubin Ql (U) 0.69 mg/dL 0.3 - 1.2 mg/dL [employer] Phone: Bun/Cre Ratio NOT REPORTED [facility] Work Phone: Calcium [Mass/Vol] 9.6 mg/dL 8.6 - 10. 4 mg/dL [employer] Phone: Chloride [Moles/Vol] 93 mmol/L Low 98 - 10 7 mmol/L [employer] Phone: CO2 [Moles/Vol] 29 mmol/L 20 - 31 mmol/L [employer] Phone: Creatinine [Mass/Vol] 1.06 mg/dL High 0.50 - 0.90 mg/dL [employer] Phone: GFR >60 >60 mL/min [employer] Phone: GFR Non- 53 mL/min Low >60 [employer] Phone: GFR/1.73 sq M predicted among non-blacks MDRD (S/P/Bld) [Vol rate/Area] [employer] Phone: Comment on above: Average GFR for 50-5 9 years old: 93 mL/min/1.73sq m Chronic Kidney Disease: <60 mL/min/1.73sq m Kidney failure: <15 mL/min/1.73sq m eGFR calculated using average adult body mass. Additional eGFR calculator available at: http://www.[employer]/multiple_crcl_2012.htm GFR/1.73 sq M predicted among non-blacks MDRD (S/P/Bld) [Vol rate/Area] NOT REPORTED [employer] Phone: Glucose [Mass/Vol] 110 mg/dL High 70 - 99 mg/dL [employer] Phone: Potassium [Moles/Vol] 2.6 mmol/L Critically low 3.7 - 5.3 mmol/L [employer] Phone: Protein [Mass/Vol] 7.3 g/dL 6.4 - 8.3 g/dL [employer] Phone: Sodium [Moles/Vol] 136 mmol/L 135 - 144 mmol/L [employer] Phone: Urea nitrogen [Mass/Vol] 27 mg/dL High 6 - 20 mg/dL [employer] Phone: Hemoglobin A1Con 08-20-2020 Glucose [Mass/Vol] 117 mg/dL [facility] Phone: Comment on above: The ADA and AACC rec ommend providing the estimated average glucose result to permit better patient understanding of their HBA1c result. HbA1c (Bld) [Mass fraction] 5.7 % 4.0 - 6.0 % [employer] Phone: Lipid, Fastingon 08-20-2020 Cholesterol [Mass/Vol] 123 mg/dL <200 [employer] Phone: Comment on above: Cholesterol Guidelines: <200 Desirable 200-240 Borderline >240 Undesirable Cholesterol in HDL [Mass/Vol] 41 mg/dL >40 [facility] Phone: Comment on above: HDL Guidelines: <40 Undesirable 40-59 Borderline >59 Desirable Cholesterol in LDL [Mass/Vol] 68 mg/dL 0 - 130 mg/dL [employer] Phone: Comment on above: LDL Guidelines: <100 Desirable 100-129 Near to/above Desirable 130-159 Borderline >159 Undesirable Direct (measured) LDL and calculated LDL are not interchangeable tests. Cholesterol in VLDL [Mass/Vol] NOT REPORTED 1 - 30 mg/dL [facility] Phone: Cholesterol.total/Cielo sterol in HDL [Mass ratio] 3 {ratio} <5 [facility] Phone: Triglyceride, Fasting 72 mg/dL <150 [facility] [employer] Phone: Comment on above: Triglyceride Guidelines: <150 Desirable 150-199 Borderline 200-499 High >499 Very high Based on AHA Guidelines for fasting triglyceride, March 2012. Microalbumin, Uron 1 Albumin/Creatinine DL <= 20 mg/L (24H U) [Mass ratio] 63 mg/L High <21 [employer] Phone: Albumin/Creatinine DL <= 20 mg/L (U) [Ratio] 15 <25 mcg/mg creat [employer] Phone: Creatinine [Mass/Vol] 410.0 mg/dL High 28.0 - 217.0 mg/dL [employer] Phone: Interpretation and review of laboratory results Abnormal [employer] Phone: Otheron 08-20-2020 Interpretation and review of laboratory results Abnormal [employer] Phone: T4, Freeon 08-20-2020 Thyroxine, Free 1.41 ng/dL 0.93 - 1.70 ng/dL [employer] Phone: TSH without Reflexon 021 TSH Qn 6.53 m[IU]/L High [employer] Phone: Vitamin B12on 08-20-2020 Cobalamin (Vitamin B12) [Mass/Vol] 658 pg/mL 232 - 1245 pg/mL [employer] Phone: POC Glucose Fingerstickon Glucose [Mass/Vol] 131 mg/dL High 65 - 105 mg/dL [place] Interpretation and review of laboratory results Abnormal [facility] [place] Glucose [Mass/Vol] 92 mg/dL 65 - 105 mg/dL [place], [place] Covid-19 Ambulatoryon 2019 SARS-CoV-2, CYNTHIA Not Detected Not Detected [facility] [place], [place] Comment on above: (NOTE) This nucleic acid amplification test was developed and its performance characteristics determined by [employer]. Nucleic acid amplification tests include PCR and TMA. This test has not been FDA cleared or approved. This test has been authorized by FDA under an Emergency Use Authorization (EUA). This test is only authorized for the duration of time the declaration that circumstances exist justifying the authorization of the emergency use of in vitro diagnostic tests for detection of SARS-CoV-2 virus and/or diagnosis of COVID-19 infection under section 564(b)(1) of the Act, 21 U.S.C. 360bbb-3(b) (1), unless the authorization is terminated or revoked sooner. When diagnostic testing is negative, the possibility of a false negative result should be considered in the context of a patient's recent exposures and the presence of clinical signs and symptoms consistent with COVID-19. An individual without symptoms of COVID- 19 and who is not shedding SARS-CoV-2 virus would expect to have a negative (not detected) result in this assay. Performed At: [facility] [id number] [facility] [place] [id number] Rufino Christianson MD Ph:[phone] EKG 12 Leadon 02-27-2020 Atrial Rate 52 BPM [place], [place] P [place] 75 degrees [place], [place] P-R Interval 144 ms [facility], [place] Q-T Interval 410 ms [place], [place] QRS Duration 108 ms [place], [place] QTc Calculation (Bazett) 381 ms [place], [place] R [place] -61 degrees [facility], [place] T [place] 15 degrees [facility], [place] Ventricular Rate 52 BPM [place], [place] Sinus bradycardia Le ft anterior fascicular block Nonspecific T wave abnormality Abnormal ECG No previous ECGs available [place], [place], [facility] Incoming E kg Results From [facility] - 02/27/2020 11:59 AM EDT Sinus bradycardia Left anterior fascicular block Nonspecific T wave abnormality Abnormal ECG No previous ECGs available [place] BUN & Creatinineon 0 Creatinine [Mass/Vol] 0.54 mg/dL 0.5 - 0.9 mg/dL [place] GFR >60 >60 mL/min [place], [place] GFR Non- >60 >60 mL/min [place] GFR/1.73 sq M predicted among non-blacks MDRD (S/P/Bld) [Vol rate/Area] NOT REPORTED [place] GFR/1.73 sq M predicted among non-blacks MDRD (S/P/Bld) [Vol rate/Area] [place], [place] Comment on above: Average GFR for 50-5 9 years old: 93 mL/min/1.73sq m Chronic Kidney Disease: <60 mL/min/1.73sq m Kidney failure: <15 mL/min/1.73sq m eGFR calculated using average adult body mass. Additional eGFR calculator available at: http://www.[employer] [email or web address] Urea nitrogen [Mass/Vol] 14 mg/dL 6 - 20 mg/dL [place] Electrolyte Panelon 02-26-20 20 Anion gap [Moles/Vol] 10 mmol/L 9 - 17 mmol/L [place] Chloride [Moles/Vol] 96 mmol/L Low 98 - 10 7 mmol/L [place] CO2 [Moles/Vol] 31 mmol/L 20 - 31 mmol/L [place] Interpretation and review of laboratory results Abnormal [place] Potassium [Moles/Vol] 3.3 mmol/L Low 3.7 - 5.3 mmol/L [place] Sodium [Moles/Vol] 137 mmol/L 135 - 144 mmol/L [place] Glucose, randomon 02-26-2020 Glucose [Mass/Vol] 93 mg/dL 70 - 99 mg/dL [place] Hemoglobin and Hematocrit, B loodon 02-26-2020 Hematocrit (Bld) [Volume fraction] 49.6 % High 36.3 - 47.1 % [place] Hemoglobin (Bld) [Mass/Vol] 15.6 g/dL High 11.9 - 15.1 g/dL [place] Interpretation and review of laboratory results Abnormal [place] ISABELLA DIGITAL SCREEN W OR WO C AD BILATERALon 12-18-2019 No mammographic evid ence of malignancy. BI-RADS 1 BIRADS: BIRADS - CATEGORY 1 Negative, no evidence of malignancy. Normal interval follow-up is recommended in 12 months. OVERALL ASSESSMENT - NEGATIVE A letter of notification will be sent to the patient regarding the results. The [employer] recommends annual mammograms for women 40 years and older. [place] EXAMINATION: SCREENI NG DIGITAL BILATERAL MAMMOGRAM WITH TOMOSYNTHESIS, 12/17/2019 TECHNIQUE: Screening mammography of the bilateral breasts was performed with tomosynthesis. 2D standard and 3D tomosynthesis combination imaging performed through both breasts in the MLO and CC projection. Computer aided detection was utilized in the interpretation of this exam. COMPARISON: 10/23/2018, 08/03/2015 HISTORY: Screening. FINDINGS: The breast tissue is composed of scattered fibroglandular tissue. There is no suspicious mass, suspicious microcalcification, or area of architectural distortion. [place], [facility] Incoming Radiant Results From [employer] [facility] - 12/18/2019 9:27 AM EDT EXAMINATION: SCREENING DIGITAL BILATERAL MAMMOGRAM WITH TOMOSYNTHESIS, 12/17/2019 TECHNIQUE: Screening mammography of the bilateral breasts was performed with tomosynthesis. 2D standard and 3D tomosynthesis combination imaging performed through both breasts in the MLO and CC projection. Computer aided detection was utilized in the interpretation of this exam. COMPARISON: 10/23/2018, 08/03/2015 HISTORY: Screening. FINDINGS: The breast tissue is composed of scattered fibroglandular tissue. There is no suspicious mass, suspicious microcalcification, or area of architectural distortion. IMPRESSION: No mammographic evidence of malignancy. BI-RADS 1 BIRADS: BIRADS - CATEGORY 1 Negative, no evidence of malignancy. Normal interval follow-up is recommended in 12 months. OVERALL ASSESSMENT - NEGATIVE A letter of notification will be sent to the patient regarding the results. The [employer] recommends annual mammograms for women 40 years and older. [place] POC Glucose Fingerstickon Glucose [Mass/Vol] 75 mg/dL 65 - 105 mg/dL [place] COVID-19on 11-29-2019 SARS-CoV-2 [place] SARS-CoV-2, PCR Not Detected Not Detected [place] Comment on above: (NOTE) The [employer] Real[employer] SARS-CoV-2 assay is a real-time (rt) reverse transcriptase (RT) polymerase chain reaction (PCR) test intended for the Archiver's system. The SARS-CoV-2 primer and probe sets are designed to detect RNA from SARS-CoV-2 in nasopharyngeal (ACOUSTICS TEACHER) and oropharyngeal (OP) swabs from patients with signs and symptoms of infection who are suspected of COVID-19. Results are for the identification of SARS-CoV-2 RNA. The SARS-CoV-2 RNA is generally detectable in a nasopharyngeal and oropharyngeal swabs during the acute phase of infection. The [employer] RealTime SARS-CoV-2 assay is intended for use by qualified and trained clinical laboratory personnel specifically instructed and trained in the techniques of real-time PCR and in vitro diagnostic procedures. The [employer] RealTime SARS-CoV-2 assay is only for use under the Food and Drug Administration Emergency Use Authorization. Testing is limited to laboratories certified under the Clinical Laboratory Improvement Amendments of 1988 (CLIA), 42 U.S.C. 263a, to perform high complexity tests. Not Detected: Not detected does not preclude SARS-CoV-2 infection and should not be used as the sole basis for patient management decisions. Not detected results must be combined with clinical observations, patient history, and epidemiological information. The above 1 [place] [address] SARS-CoV-2, [place], [place] Source .NASOPHARYNGEAL SWAB [place], [place] CT Lung Screen (Annual)on 1. Mild emphysema. Bibasilar atelectasis and parenchymal banding. Respiratory motion. No lobar airspace consolidation. No discrete pulmonary nodule. 2. Cardiomegaly. Coronary artery disease. 3. Patulous fluid and debris-filled esophagus. 4. Small hiatal hernia. 5. Atherosclerotic calcification of the proximal great vessels. LUNG RADS: Per ACR Lung-RADS Version 1.0 Category 1, Negative (No nodules and definitely benign nodules).Management:Cont inue annual lung screening with LDCT in 12 months.(probability of malignancy <1%). RECOMMENDATIONS: If you would like to register your patient with the [facility] Lung Nodule/Lung Cancer Screening Program, please contact the Nurse Navigator at [phone]). [place] EXAMINATION: LOW DOS E SCREENING CT OF THE CHEST WITHOUT CONTRAST TECHNIQUE: Low dose lung cancer screening CT of the chest was performed without the administration of intravenous contrast. Multiplanar reformatted images are provided for review. Dose modulation, iterative reconstruction, and/or weight based adjustment of the mA/kV was utilized to reduce the radiation dose to as low as reasonably achievable. Fgwrv-re-mdow: 32 cm Dose Length Product: 82.11 mGy CTDlvol: 2.53 mGy COMPARISON: 10/30/2018 HISTORY: Screening. Patient Age: 54 y/o Number of pack years of smokin pack years If no longer smoking, number of years since cessation: Current smoker Other symptoms: None. FINDINGS: Mediastinum: Visualized thyroid gland grossly unremarkable in appearance. Coronary artery disease. Cardiomegaly. No pericardial or pleural effusions. No periaortic or mediastinal hemorrhage. Patulous fluid and debris-filled esophagus. Small hiatal hernia. No axillary, mediastinal, or hilar lymphadenopathy. Atherosclerotic calcification of the proximal great vessels. Lungs/Pleura: Trachea and proximal central airways appear patent. Respiratory motion throughout the lungs. No lobar airspace consolidation. Mild emphysema. Bibasilar atelectasis and parenchymal banding. No discrete pulmonary nodule. Upper Abdomen: Partial visualization of the upper abdomen on limited noncontrast imaging grossly unremarkable. Soft Tissues/Bones: Tjyl-lo-lqechtag degenerative changes throughout the spine. [facility] [place], [place], [place]pn Incoming Radiant Results From [employer] - 11/10/2019 4:31 PM EDT EXAMINATION: LOW DOSE SCREENING CT OF THE CHEST WITHOUT CONTRAST TECHNIQUE: Low dose lung cancer screening CT of the chest was performed without the administration of intravenous contrast. Multiplanar reformatted images are provided for review. Dose modulation, iterative reconstruction, and/or weight based adjustment of the mA/kV was utilized to reduce the radiation dose to as low as reasonably achievable. Rxynn-sn-lqtj: 32 cm Dose Length Product: 82.11 mGy CTDlvol: 2.53 mGy COMPARISON: 10/30/2018 HISTORY: Screening. Patient Age: 54 y/o Number of pack years of smokin pack years If no longer smoking, number of years since cessation: Current smoker Other symptoms: None. FINDINGS: Mediastinum: Visualized thyroid gland grossly unremarkable in appearance. Coronary artery disease. Cardiomegaly. No pericardial or pleural effusions. No periaortic or mediastinal hemorrhage. Patulous fluid and debris-filled esophagus. Small hiatal hernia. No axillary, mediastinal, or hilar lymphadenopathy. Atherosclerotic calcification of the proximal great vessels. Lungs/Pleura: Trachea and proximal central airways appear patent. Respiratory motion throughout the lungs. No lobar airspace consolidation. Mild emphysema. Bibasilar atelectasis and parenchymal banding. No discrete pulmonary nodule. Upper Abdomen: Partial visualization of the upper abdomen on limited noncontrast imaging grossly unremarkable. Soft Tissues/Bones: Vamq-ef-xghbjwjj degenerative changes throughout the spine. IMPRESSION: 1. Mild emphysema. Bibasilar atelectasis and parenchymal banding. Respiratory motion. No lobar airspace consolidation. No discrete pulmonary nodule. 2. Cardiomegaly. Coronary artery disease. 3. Patulous fluid and debris-filled esophagus. 4. Small hiatal hernia. 5. Atherosclerotic calcification of the proximal great vessels. LUNG RADS: Per ACR Lung-RADS Version 1.0 Category 1, Negative (No nodules and definitely benign nodules).Management:Cont inue annual lung screening with LDCT in 12 months.(probability of malignancy <1%). RECOMMENDATIONS: If you would like to register your patient with the [facility] Lung Nodule/Lung Cancer Screening Program, please contact the Nurse Navigator at [phone]). [facility] ESOPHAGRAMOrdered By: Mauro Zeng on 06-23-2019 Findings above consistent with achalasia. The findings were sent to the Radiology Results Communication Center at 9:57 am on 06/23/2019to be communicated to a licensed caregiver. [employer] Phone: EXAMINATION: DOUBLE CONTRAST ESOPHAGRAM 06/23/2019 9:41 am TECHNIQUE: Double contrast esophagram was performed with barium and air contrast. FLUOROSCOPY DOSE AND TYPE OR TIME AND EXPOSURES: Fluoro time: 1 minute, DAP: 2.825 Gy cm2 COMPARISON: None HISTORY: ORDERING SYSTEM PROVIDED HISTORY: Dysphagia, unspecified type TECHNOLOGIST PROVIDED HISTORY: Reason for Exam: Dysphagia Acuity: Chronic Type of Exam: Subsequent/Follow-up 54-year-old female with dysphagia FINDINGS: There is diffuse debris filled distention of the esophagus with associated mild tortuosity. There is a region of severe bird beak type tapering/stricture at the GE junction through which no significant amount of contrast migrates through. Findings consistent with achalasia. Exam was prematurely discontinued due to no appreciable amount of contrast migrating through the GE junction. [facility] Phone: [place], [place] Incoming Radiant Results From [facility] [facility] [employer] - 06/23/2019 10:00 AM EST EXAMINATION: DOUBLE CONTRAST ESOPHAGRAM 06/23/2019 9:41 am TECHNIQUE: Double contrast esophagram was performed with barium and air contrast. FLUOROSCOPY DOSE AND TYPE OR TIME AND EXPOSURES: Fluoro time: 1 minute, DAP: 2.825 Gy cm2 COMPARISON: None HISTORY: ORDERING SYSTEM PROVIDED HISTORY: Dysphagia, unspecified type TECHNOLOGIST PROVIDED HISTORY: Reason for Exam: Dysphagia Acuity: Chronic Type of Exam: Subsequent/Follow-up 54-year-old female with dysphagia FINDINGS: There is diffuse debris filled distention of the esophagus with associated mild tortuosity. There is a region of severe bird beak type tapering/stricture at the GE junction through which no significant amount of contrast migrates through. Findings consistent with achalasia. Exam was prematurely discontinued due to no appreciable amount of contrast migrating through the GE junction. IMPRESSION: Findings above consistent with achalasia. The findings were sent to the Radiology Results Communication Center at 9:57 am on 06/23/2019to be communicated to a licensed caregiver. [employer] Phone: [place] MODIFIED BARIUM SWALLOW W VIDEOOrdered By: Olga Zeng on 06-23-2019 No evidence for penetration or aspiration with the above administered substances. Please see separate speech pathology report for full discussion of findings and recommendations. [employer] Phone: EXAMINATION: MODIFIE D BARIUM SWALLOW WAS PERFORMED IN CONJUNCTION WITH [facility] [employer] TECHNIQUE: Fluoroscopic evaluation of the swallowing mechanism was performed with multiple consistency of barium product. FLUOROSCOPY DOSE AND TYPE OR TIME AND EXPOSURES: Fluoro time: 1 minute, DAP: 0.402 Gy cm2 COMPARISON: None HISTORY: ORDERING SYSTEM PROVIDED HISTORY: Dysphagia, unspecified type TECHNOLOGIST PROVIDED HISTORY: Reason for Exam: Dysphagia Acuity: Chronic Type of Exam: Subsequent/Follow-up 54-year-old female with dysphagia FINDINGS: No penetration or aspiration with the pureed/pudding thick substance, thin liquid substance by cup, or cookie solid substance. Soft solid and thick liquid substances were not attempted. [employer] Phone: [place], [facility] Incoming Radiant Results From [facility] - 06/23/2019 9:56 AM EST EXAMINATION: MODIFIED BARIUM SWALLOW WAS PERFORMED IN CONJUNCTION WITH [employer] TECHNIQUE: Fluoroscopic evaluation of the swallowing mechanism was performed with multiple consistency of barium product. FLUOROSCOPY DOSE AND TYPE OR TIME AND EXPOSURES: Fluoro time: 1 minute, DAP: 0.402 Gy cm2 COMPARISON: None HISTORY: ORDERING SYSTEM PROVIDED HISTORY: Dysphagia, unspecified type TECHNOLOGIST PROVIDED HISTORY: Reason for Exam: Dysphagia Acuity: Chronic Type of Exam: Subsequent/Follow-up 54-year-old female with dysphagia FINDINGS: No penetration or aspiration with the pureed/pudding thick substance, thin liquid substance by cup, or cookie solid substance. Soft solid and thick liquid substances were not attempted. IMPRESSION: No evidence for penetration or aspiration with the above administered substances. Please see separate speech pathology report for full discussion of findings and recommendations. [facility] Work Phone: Vital Signs Date Time Vital Sign Value Performing Clinician Facility 12-02-2024 11:13-0400 Body height 167.[address] Johana Varela MD Work Phone: [facility] 12-02-2024 11:13-0400 Body temperature 97.5 [degF] Dr. Johana Varela MD Work Phone: [facility] 12-02-2024 11:13-0400 Diastolic blood pressure 81 mm[Hg] Dr. Johana Varela MD Work Phone: [facility] 12-02-2024 11:13-0400 SaO2% (BldA) [Mass fraction] 95 % Dr. Johana Varela MD Work Phone: [facility] 12-02-2024 11:13-0400 Systolic blood pressure 154 mm[Hg] Dr. Johana Varela MD Work Phone: [facility] 11-06-2024 09:30-0400 Body temperature 97 [degF] Dr. Johana Varela MD Work Phone: [facility] 11-06-2024 09:30-0400 Diastolic blood pressure 70 mm[Hg] Dr. Johana Varela MD Work Phone: [facility] 11-06-2024 09:30-0400 Heart rate 74 /min Dr. Johana Varela MD Work Phone: [facility] 11-06-2024 09:30-0400 Respiratory rate 16 /min Dr. Johana Varela MD Work Phone: [facility] 11-06-2024 09:30-0400 SaO2% (BldA) [Mass fraction] 95 % Dr. Johana Varela MD Work Phone: [facility] 11-06-2024 09:30-0400 Systolic blood pressure 131 mm[Hg] Dr. Johana Varela MD Work Phone: [facility] 11-06-2024 07:19-0400 Body height 167.[address] Johana Varela MD Work Phone: [phone] [place] [address] 11-06-2024 07:19-0400 Body mass index (BMI) [Ratio] 47.1 kg/m2 Dr. Johana Varela MD Work Phone: [facility] 11-06-2024 07:19-0400 Body weight 132.[address] Johana Varela MD Work Phone: [facility] 10-15-2024 13:33-0400 Diastolic blood pressure 79 mm[Hg] Dr. Johana Varela MD Work Phone: [facility] 10-15-2024 13:33-0400 Heart rate 70 /min Dr. Johana Varela MD Work Phone: [facility] 10-15-2024 13:33-0400 Respiratory rate 18 /min Dr. Johana Varela MD Work Phone: [facility] 10-15-2024 13:33-0400 SaO2% (BldA) [Mass fraction] 90 % Dr. Johana Varela MD Work Phone: [facility] 10-15-2024 13:33-0400 Systolic blood pressure 139 mm[Hg] Dr. Johana Varela MD Work Phone: [phone] [place] [address] 05-13-2024 08:00-0500 Body temperature 97.2 [degF] Lynn Estrella DO Work Phone: [facility] 05-13-2024 08:00-0500 Diastolic blood pressure 59 mm[Hg] Lynn Campya DO Work Phone: [facility] 05-13-2024 08:00-0500 Heart rate 58 /min Lynn Campya DO Work Phone: [facility] 05-13-2024 08:00-0500 Respiratory rate 16 /min Lynn Estrella DO Work Phone: [facility] 05-13-2024 08:00-0500 SaO2% (BldA) [Mass fraction] 94 % Lynn Estrella DO Work Phone: [facility] 05-13-2024 08:00-0500 Systolic blood pressure 116 mm[Hg] Lynn Estrella DO Work Phone: [facility] 05-10-2024 23:40-0500 Body height 157.5 cm Lynn Estrella DO Work Phone: [facility] 05-10-2024 23:40-0500 Body mass index (BMI) [Ratio] 51.21 kg/m2 Lynn Estrella DO Work Phone: [facility] 05-10-2024 23:40-0500 Body weight 127.01 kg Lynn Estrella DO Work Phone: [facility] 09-04-2022 08:32-0400 Body temperature 97.9 [degF] Elizabeth Montoya MD Work Phone: [facility] 09-04-2022 08:32-0400 Diastolic blood pressure 65 mm[Hg] Elizabeth Montoya MD Work Phone: [facility] 09-04-2022 08:32-0400 Heart rate 58 /min Elizabeth Montoya MD Work Phone: [facility] 09-04-2022 08:32-0400 Respiratory rate 16 /min Elizabeth Montoya MD Work Phone: [facility] 09-04-2022 08:32-0400 SaO2% (BldA) [Mass fraction] 90 % Elizabeth Montoya MD Work Phone: [facility] 09-04-2022 08:32-0400 Systolic blood pressure 116 mm[Hg] Elizabeth Montoya MD Work Phone: [facility] [employer] 08-24-2022 19:00-0400 Body height 157.5 cm Elizabeth Montoya MD Work Phone: [facility] [employer] 08-24-2022 19:00-0400 Body mass index (BMI) [Ratio] 44.84 kg/m2 Elizabeth Montoya MD Work Phone: [facility] 08-24-2022 19:00-0400 Body weight 111.2 kg Elizabeth Montoya MD Work Phone: [facility] [employer] 08-23-2022 09:45-0400 Heart rate 70 /min Paulino Zayas MD Work Phone: [facility] [employer] 08-23-2022 09:45-0400 Respiratory rate 16 /min Paulino Zayas MD Work Phone: [facility] 08-23-2022 09:45-0400 SaO2% (BldA) [Mass fraction] 93 % Paulino Zayas MD Work Phone: [facility] 08-23-2022 08:00-0400 Body temperature 98.2 [degF] Paulino Zayas MD Work Phone: [facility] 08-23-2022 08:00-0400 Diastolic blood pressure 62 mm[Hg] Paulino Zayas MD Work Phone: [facility] [employer] 08-23-2022 08:00-0400 Systolic blood pressure 104 mm[Hg] Paulino Zayas MD Work Phone: [facility] [employer] 08-23-2022 06:00-0400 Body mass index (BMI) [Ratio] 46.74 kg/m2 Paulino Zayas MD Work Phone: [facility] 08-23-2022 06:00-0400 Body weight 115.92 kg Paulino Zayas MD Work Phone: [facility] [employer] 08-20-2022 22:24-0400 Body height 157.5 cm Paulino Zayas MD Work Phone: [facility] [employer] 09-08-2021 01:34-0400 Body height 157.5 cm Yusef Steiner MD [employer] 09-08-2021 01:34-0400 Body mass index (BMI) [Ratio] 45.73 kg/m2 Yusef Steiner MD [employer] 09-08-2021 01:34-0400 Body temperature 98.29 [degF] Yusef Steiner MD [employer] 09-08-2021 01:34-0400 Body weight 113.4 kg Yusef Steiner MD [employer] 09-08-2021 01:34-0400 Diastolic blood pressure 81 mm[Hg] Yusef Steiner MD [employer] 09-08-2021 01:34-0400 Heart rate 68 /min Yusef Steiner MD [employer] 09-08-2021 01:34-0400 Respiratory rate 20 /min Yusef Steiner MD [employer] 09-08-2021 01:34-0400 SaO2% (BldA) [Mass fraction] 98 % Yusef Steiner MD [employer] 09-08-2021 01:34-0400 Systolic blood pressure 118 mm[Hg] Yusef Steiner MD [employer] 08-30-2021 12:24-0400 Diastolic blood pressure 75 mm[Hg] Pito Lizzeth DO Work Phone: [employer] 08-30-2021 12:24-0400 Systolic blood pressure 129 mm[Hg] Pito Lizzeth DO Work Phone: [employer] 08-30-2021 12:22-0400 Body temperature 97.3 [degF] Pito Lizzeth DO Work Phone: [employer] 03-23-2022 12:22-0400 Heart rate 67 /min Pito Moreau DO Work Phone: [employer] 08-30-2021 12:22-0400 Respiratory rate 15 /min Pito Moreau DO Work Phone: [employer] 08-30-2021 12:22-0400 SaO2% (BldA) [Mass fraction] 97 % Pito Moreau DO Work Phone: [employer] 11-02-2020 19:07-0400 Body height 158.8 cm Bull Calixto MD Work Phone: [employer] Work Phone: 11-02-2020 19:07-0400 Body mass index (BMI) [Ratio] 27.29 kg/m2 Bull Calixto MD Work Phone: [employer] Work Phone: 11-02-2020 19:07-0400 Body temperature 98.2 [degF] Bull Calixto MD Work Phone: [employer] Work Phone: 11-02-2020 19:07-0400 Body weight 68.77 kg Bull Calixto MD Work Phone: [employer] Work Phone: 11-02-2020 19:07-0400 Diastolic blood pressure 38 mm[Hg] Bull Calixto MD Work Phone: [employer] Work Phone: 11-02-2020 19:07-0400 Heart rate 75 /min Bull Calixto MD Work Phone: [employer] Work Phone: 11-02-2020 19:07-0400 Respiratory rate 16 /min Bull Calixto MD Work Phone: [employer] Work Phone: 11-02-2020 19:07-0400 SaO2% (BldA) [Mass fraction] 97 % Bull Calixto MD Work Phone: [employer] Work Phone: 11-02-2020 19:07-0400 Systolic blood pressure 104 mm[Hg] Bull Calixto MD Work Phone: [employer] Work Phone: 10-27-2020 13:32-0400 Body temperature 97.88 [degF] No Pcp Required [facility] 10-27-2020 13:32-0400 Diastolic blood pressure 57 mm[Hg] No Pcp Required [facility] 10-27-2020 13:32-0400 Heart rate 63 /min No Pcp Required [facility] 10-27-2020 13:32-0400 Respiratory rate 18 /min No Pcp Required [facility] 10-27-2020 13:32-0400 SaO2% (BldA) [Mass fraction] 95 % No Pcp Required [facility] 10-27-2020 13:32-0400 Systolic blood pressure 89 mm[Hg] No Pcp Required [facility] 09-29-2020 19:04-0400 Body height 157.5 cm Frederic Duke MD Work Phone: [employer] Work Phone: 09-29-2020 19:04-0400 Body mass index (BMI) [Ratio] 22.5 kg/m2 Frederic Duke MD Work Phone: [employer] Work Phone: 09-29-2020 19:04-0400 Body weight 55.79 kg Frederic Duke MD Work Phone: [employer] Work Phone: 09-29-2020 19:04-0400 Diastolic blood pressure 59 mm[Hg] Frederic Duke MD Work Phone: [employer] Work Phone: 09-29-2020 19:04-0400 Heart rate 70 /min Frederic Duke MD Work Phone: [employer] Work Phone: 09-29-2020 19:04-0400 Respiratory rate 18 /min Frederic Duke MD Work Phone: [employer] Work Phone: 09-29-2020 19:04-0400 SaO2% (BldA) [Mass fraction] 96 % Frederic Duke MD Work Phone: [employer] Work Phone: 09-29-2020 19:04-0400 Systolic blood pressure 93 mm[Hg] Frederic Duke MD Work Phone: [employer] Work Phone: 09-29-2020 18:37-0400 Body temperature 97.3 [degF] Frederic Duke MD Work Phone: [employer] Work Phone: 03-11-2020 15:35-0400 Body Temperature 98.2 [degF] [facility] 03-11-2020 15:35-0400 BP Diastolic 52 mm[Hg] [facility] , [place] 03-11-2020 15:35-0400 BP Systolic 100 mm[Hg] [facility] , [place] 03-11-2020 15:35-0400 Pulse (Heart Rate) 58 /min [facility], [place] 03-11-2020 15:35-0400 Pulse Oximetry 94 % [facility] , [place] 03-11-2020 15:35-0400 Respiratory Rate 15 /min [facility] 03-11-2020 11:59-0400 BMI (Body Mass Index) 27.07 kg/m2 [facility], [place] 03-11-2020 11:59-0400 [facility] [place] [facility]-2020 11:59-0400 Height 157.5 cm [facility] , [place] 02-26-2020 09:15-0400 BMI (Body Mass Index) 26.64 kg/m2 Stvz 1 [facility], [place] 02-26-2020 09:15-0400 Body Temperature 97.2 [degF] Stvz 1 [facility] , [place] 02-26-2020 09:15-0400 Body weight 67.13 kg Stvz 1 [facility] , [place] 02-26-2020 09:15-0400 BP Diastolic 65 mm[Hg] Stvz 1 [facility] , [place] 02-26-2020 09:15-0400 BP Systolic 99 mm[Hg] [facility]vz 1 [facility] , [place] 02-26-2020 09:15-0400 Height 158.8 cm Stvz 1 [facility] , [place] 02-26-2020 09:15-0400 Pulse (Heart Rate) 57 /min vz 1 [facility], [place] 02-26-2020 09:15-0400 Pulse Oximetry 96 % [facility] 1 [facility] , [place] 02-26-2020 09:15-0400 Respiratory Rate 16 /min vz 1 [facility], [place] 01-20-2020 00:49-0400 BMI (Body Mass Index) 28.35 kg/m2 [facility], [place] 01-20-2020 00:49-0400 Body [facility] 70.31 [facility] [place] 01-20-2020 00:49-0400 BP Diastolic 64 mm[Hg] [facility] [place] [facility] [place] 01-20-2020 00:49-0400 BP Systolic 107 mm[Hg] [facility] [place] [facility] [place] 01-20-2020 00:49-0400 Pulse (Heart Rate) 55 /min [facility] [place] 01-20-2020 00:49-0400 Pulse Oximetry 97 % [facility] [place] 01-20-2020 00:49-0400 Respiratory Rate 16 /min [facility] [place] 01-20-2020 00:42-0400 Body Temperature 97.7 [degF] [facility] [place] 12-02-2019 13:07-0400 BMI (Body Mass Index) 27.72 kg/m2 [facility] [place] 12-02-2019 13:07-0400 Body Temperature 99.3 [degF] Paulino [facility], [place] 12-02-2019 13:07-0400 Body weight 69.85 kg [facility] [place] 12-02-2019 13:07-0400 BP Diastolic 63 mm[Hg] Paulino [facility] , [place] 12-02-2019 13:07-0400 BP Systolic 116 mm[Hg] Paulino [facility] , [place] 12-02-2019 13:07-0400 Height 158.8 cm Paulino [facility] , [place] 12-02-2019 13:07-0400 Pulse (Heart Rate) 58 /min Paulino [facility], [place] 12-02-2019 13:07-0400 Pulse Oximetry 93 % Paulino [facility] , [place] 12-02-2019 13:07-0400 Respiratory Rate 16 /min Paulino [facility] 12-01-2019 13:45-0400 Body Temperature 97.5 [degF] [facility] , [place] 12-01-2019 13:45-0400 BP Diastolic 65 mm[Hg] [facility] , [place] 12-01-2019 13:45-0400 BP Systolic 105 mm[Hg] [facility] , [place] 12-01-2019 13:45-0400 Pulse (Heart Rate) 51 /min [facility], [place] 12-01-2019 13:45-0400 Pulse Oximetry 99 % [facility] , [place] 12-01-2019 13:45-0400 Respiratory Rate 12 /min [facility] [place] 12-01-2019 12:17-0400 BMI (Body Mass Index) 28.08 kg/m2 [facility] [place] [place] 12-01-2019 12:17-0400 Body weight 70.76 kg [facility] , [place] 12-01-2019 12:17-0400 Height 158.8 cm Olga Zeng [facility] , [place] 11-28-2019 00:18-0400 Body Temperature 98.29 [degF] Breann Reed [facility], [place] 11-28-2019 00:18-0400 BP Diastolic 82 mm[Hg] Breann Reed [facility], [place] 11-28-2019 00:18-0400 BP Systolic 136 mm[Hg] Breann Reed [facility], [place] 11-28-2019 00:18-0400 Pulse (Heart Rate) 60 /min Breann Reed [facility], [place] 11-28-2019 00:18-0400 Pulse Oximetry 96 % Breann Reed [facility], [place] 11-28-2019 00:18-0400 Respiratory Rate 16 /min Breann Reed [facility], [place] 11-02-2019 20:58-0400 Body Temperature 98.2 [degF] [facility] [place] 11-02-2019 20:55-0400 BMI (Body Mass Index) 28.08 kg/m2 [facility] [place] 11-02-2019 20:55-0400 Body weight 70.76 kg [facility] [place] 11-02-2019 20:55-0400 BP Diastolic 71 mm[Hg] [facility] [place] 11-02-2019 20:55-0400 BP Systolic 107 mm[Hg] [facility] [place] 11-02-2019 20:55-0400 Pulse (Heart Rate) 62 /min [facility] [place] 11-02-2019 20:55-0400 Pulse Oximetry 97 % [facility] [place] 11-02-2019 20:55-0400 Respiratory Rate 17 /min [facility] [place] 06-23-2019 09:47-0500 Body height 158.8 cm Cliff Coleman MD Work Phone: [facility] Work Phone: 06-23-2019 09:47-0500 Body mass index (BMI) [Ratio] 27.37 kg/m2 Cliff Coleman MD Work Phone: [employer] Work Phone: 06-23-2019 09:47-0500 Body weight 68.97 kg Cliff Coleman MD Work Phone: [employer] Work Phone: 06-23-2019 09:46-0500 Body temperature 97.7 [degF] Cliff Coleman MD Work Phone: [employer] Work Phone: 06-23-2019 09:46-0500 Diastolic blood pressure 82 mm[Hg] Cliff Coleman MD Work Phone: [employer] Work Phone: 06-23-2019 09:46-0500 Heart rate 56 /min Cliff Coleman MD Work Phone: [employer] Work Phone: 06-23-2019 09:46-0500 Respiratory rate 14 /min Cliff Coleman MD Work Phone: [employer] Work Phone: 06-23-2019 09:46-0500 SaO2% (BldA) [Mass fraction] 99 % Cliff Coleman MD Work Phone: [employer] Work Phone: 06-23-2019 09:46-0500 Systolic blood pressure 141 mm[Hg] Cliff Coleman MD Work Phone: [employer] Work Phone: Encounters Encounter Date Encounter Type Care Provider Facility Start: 12-22-2024 ambulatory FARRUKH Smith PA-C Facility:[facility] Start: 12-15-2024 End: 12-15-2024 Telephone encounter Shirley Roman AUD CCC-A Work Phone: [facility] - Audiology Start: 12-02-2024 End: 12-02-2024 Patient encounter procedure Penny THOMASON -[facility] Work Phone: Start: 12-02-2024 End: 12-02-[address] Johana Varela MD Work Phone: [facility] Work Phone: Start: 11-11-2024 End: 11-11-2024 Emergency department patient visit VANCE LYNCH DO [facility] Start: 11-09-2024 End: 11-09-[address] Johana Varela MD Work Phone: [facility] Work Phone: Start: 11-09-2024 End: 11-09-[address] Denilson Polanco MD -Radiology [facility] Work Phone: Start: 11-09-2024 End: 11-09-2024 ambulatory [facility] Facility:[facility] Start: 11-06-2024 ambulatory [facility] Facility:[facility] Start: 11-06-2024 Non-patient / Non-visit Dr. Mela RIDDLE -[facility] Start: 11-06-2024 End: 11-06-2024 Admission to same day surgery center Dr. Johana Varela MD -Endoscopy Work Phone: Start: 11-06-2024 End: 11-06-[address] Johana Varela MD Work Phone: [facility] Work Phone: Start: 11-02-2024 End: 11-02-2024 Emergency department patient visit ADAL HARTMANN DO [facility] Start: 10-21-2024 End: 10-22-2024 Telephone encounter Halie BRITT Work Phone: [facility] Start: 10-20-2024 End: 10-20-2024 ambulatory FARRUKH ANDERS PA-C Facility:[facility] Start: 10-15-2024 End: 10-15-[address] Johana Varela MD -[facility] Work Phone: Start: 10-15-2024 End: 10-15-2024 ambulatory Johana Varela Facility:[facility] Start: 08-24-2024 End: 08-24-2024 Documentation procedure [facility] Start: 08-03-2024 End: 08-07-2024 ambulatory Samantha Forman APRN.ENVELOPE MACHINE ADJUSTER Work Phone: [facility] Comment on above: Intractable migraine without status migrainosus, unspecified migraine type (Primary Dx); Benign essential HTN; Hypothyroidism, unspecified type; Controlled type 2 diabetes mellitus without complication, with long-term current use of insulin (HCC); Schizophrenia, unspecified type (HCC) Start: 07-23-2024 End: 07-23-2024 Telephone encounter Halie BRITT Work Phone: [facility] Start: 07-13-2024 End: 07-14-2024 ambulatory Samantha Forman APRN.ENVELOPE MACHINE ADJUSTER Work Phone: [facility] [employer] [facility] Comment on above: Cerebral palsy, unsp ecified type (HCC) (Primary Dx); Intractable migraine without status migrainosus, unspecified migraine type; Benign essential HTN; Hypothyroidism, unspecified type; Controlled type 2 diabetes mellitus without complication, with long-term current use of insulin (HCC); Schizophrenia, unspecified type (HCC) Start: 07-06-2024 End: 07-10-2024 ambulatory Samantha Forman APRN.ENVELOPE MACHINE ADJUSTER Work Phone: [facility] Comment on above: Cerebral palsy, unsp ecified type (HCC) (Primary Dx); Benign essential HTN; Controlled type 2 diabetes mellitus without complication, with long-term current use of insulin (HCC); Hypothyroidism, unspecified type; Schizophrenia, unspecified type (HCC) Start: 06-22-2024 End: 06-27-2024 ambulatory Samantha Forman APRN.ENVELOPE MACHINE ADJUSTER Work Phone: [facility] Comment on above: Cerebral palsy, unsp ecified type (HCC) (Primary Dx); Intractable migraine without status migrainosus, unspecified migraine type; Benign essential HTN; Controlled type 2 diabetes mellitus without complication, with long-term current use of insulin (HCC); Schizophrenia, unspecified type (HCC); Hypothyroidism, unspecified type Start: 06-15-2024 End: 06-19-2024 ambulatory Samantha Steiner Dickson LOZOYA.ENVELOPE MACHINE ADJUSTER Work Phone: [facility] Comment on above: Cerebral palsy, unsp ecified type (HCC) (Primary Dx); Controlled type 2 diabetes mellitus without complication, with long-term current use of insulin (HCC); Intractable migraine without status migrainosus, unspecified migraine type; Hypothyroidism, unspecified type; Benign essential HTN; Schizophrenia, unspecified type (HCC) Start: 05-10-2024 End: 05-13-2024 Evaluation and management of inpatient Lynn Estrella DO Work Phone: [facility] Observation Unit 5E Comment on above: Fever and chills (Pr imary Dx) Start: 01-03-2024 End: 01-03-2024 ambulatory [facility] Start: 12-27-2023 ambulatory [facility] Start: 12-20-2023 End: 12-20-2023 Telephone encounter Halie CAI-S Work Phone: [facility] Start: 11-18-2023 End: 11-18-2023 Telephone encounter Halie CAI-S Work Phone: [facility] Start: 11-15-2023 End: 12-05-2023 Telephone encounter Cleo Sr [facility] Comment on above: Neuropsychology Eval uation Start: 10-16-2023 End: 10-16-2023 Telephone encounter Halie CAI-S Work Phone: [facility] Start: 10-05-2023 End: 10-07-2023 Evaluation and management of inpatient [facility] Start: 09-12-2023 Telephone encounter Halie William mariya SUPERVISOR PAINT-S Work Phone: [facility] Start: 08-19-2023 Telephone encounter Halie William mariya SUPERVISOR PAINT-S Work Phone: [facility] Start: 07-26-2023 Telephone encounter Halie William mariya SUPERVISOR PAINT-S Work Phone: [facility] Start: 07-11-2023 Telephone encounter Halie William mariya SUPERVISOR PAINT-S Work Phone: [facility] Start: 07-04-2023 Telephone encounter Rk guadalupe AUD Work Phone: [facility] Start: 07-01-2023 End: 07-02-2023 ambulatory AMMAR KAYYALI I [facility] Start: 06-27-2023 Telephone encounter Halie William mariya SUPERVISOR PAINT-S Work Phone: [facility] Start: 06-24-2023 Telephone encounter Shirley duong AUD CCC-A Work Phone: [facility] Start: 06-11-2023 Telephone encounter Halie William mariya SUPERVISOR PAINT-S Work Phone: [facility] Start: 06-07-2023 Telephone encounter Halie William mariya SUPERVISOR PAINT-S Work Phone: [facility] Start: 02-06-2023 End: 02-07-2023 ambulatory [facility] Start: 02-06-2023 End: 02-06-2023 Subsequent hospital visit by physician Brice Mcfarland APRN Work Phone: [facility] Start: 10-12-2022 End: 10-12-2022 Emergency department patient visit MITCH PARSONS [facility] Start: 09-17-2022 ambulatory TORRI MALIK [facility] Start: 09-07-2022 End: 09-07-2022 Emergency department patient visit RASHEED SALAZAR [facility] Start: 08-24-2022 End: 09-04-2022 Evaluation and management of inpatient FREDERIC DC [facility] Start: 08-24-2022 End: 09-04-2022 Evaluation and management of inpatient Elizabeth Montoya MD Work Phone: [facility] Onc/Med Surg Comment on above: Failure to thrive in adult (Primary Dx) Start: 08-21-2022 End: 08-23-2022 Evaluation and management of inpatient EDUARD YANES [facility] Start: 08-20-2022 End: 08-23-2022 Evaluation and management of inpatient Paulino Zayas MD Work Phone: [facility] Renal//Med Surg Comment on above: Leg swelling (Primar y Dx); Elevated d-dimer Start: 03-27-2022 End: 03-27-2022 Emergency department patient visit FREDERIC DUKE [facility] Start: 09-08-2021 End: 09-08-2021 Emergency department patient visit Yusef Steiner MD [facility] ED Comment on above: Osteoarthritis of ri ght knee, unspecified osteoarthritis type (Primary Dx) Start: 08-30-2021 End: 08-30-2021 Emergency department patient visit Pito Moreau DO Work Phone: [facility] ED Comment on above: Arthritis of right k nee (Primary Dx) Start: 01-27-2021 End: 01-27-2021 Subsequent hospital visit by physician Vasiliy Griffin Work Phone: [facility] Start: 12-02-2020 End: 12-04-2020 Subsequent hospital visit by physician Rahul Ct Scan [address] Scan Comment on above: Personal history of tobacco use Start: 11-17-2020 End: 11-17-2020 Subsequent hospital visit by physician Bridgette [facility] Medication Management Start: 11-10-2020 Phys/qhp telephone evaluation 11-20 min No PCP None [address] Work Phone: Start: 11-02-2020 End: 11-02-2020 Emergency department patient visit Bull Calixto MD Work Phone: [facility] ED Comment on above: Arm DVT (deep venous thromboembolism), acute, right (HCC) (Primary Dx) Start: 10-18-2020 End: 10-27-2020 Evaluation and management of inpatient Mahesh Mcpherson [id number] Rm [id number] Start: 10-13-2020 End: 10-13-2020 Subsequent hospital visit by physician Linda Pft Rm 1 [facility] Pulm Function Test Comment on above: Chronic obstructive pulmonary disease, unspecified COPD type (HCC) Start: 10-11-2020 End: 10-11-2020 Subsequent hospital visit by physician Vasiliy Griffin Work Phone: [facility] Start: 10-08-2020 End: 10-08-2020 Subsequent hospital visit by physician Toni Allan Screening Schedule [facility] Screening - [place] Comment on above: COVID-19 ruled out b y laboratory testing (Primary Dx) Start: 09-29-2020 End: 09-29-2020 Emergency department patient visit Frederic Duke MD Work Phone: [facility] ED Comment on above: Dehydration (Primary Dx); Vomiting without nausea, intractability of vomiting not specified, unspecified vomiting type Start: 08-20-2020 End: 08-20-2020 Subsequent hospital visit by physician [facility] Start: 03-11-2020 End: 03-11-2020 Subsequent hospital visit by physician Mitch Mccall Work Phone: [facility] OR Start: 03-07-2020 End: 03-11-2020 Subsequent hospital visit by physician [facility] Schedule [facility] Pre-Admit Testing Start: 02-26-2020 End: 03-01-2020 Subsequent hospital visit by physician Toni Pat Rm 1 [facility] Pre-Admit Testing Start: 01-20-2020 End: 01-20-2020 Emergency department patient visit Rasheed John [facility] ED Comment on above: Pain, dental (Primar y Dx) Start: 12-17-2019 End: 12-19-2019 Subsequent hospital visit by physician Rahul Tobias Mammo Rm 2 [facility] Mammography Comment on above: Breast cancer screen ing by mammogram Start: 12-02-2019 End: 12-02-2019 Emergency department patient visit Paulino Kirkland Jaradselvin Work Phone: [facility] ED Comment on above: Migraine without aur a and without status migrainosus, not intractable (Primary Dx) Start: 12-01-2019 End: 12-01-2019 Subsequent hospital visit by physician Olga Zeng Work Phone: [facility] Start: 11-28-2019 End: 11-28-2019 Emergency department patient visit Breann Reed Work Phone: [facility] ED Comment on above: Migraine without aur a and without status migrainosus, not intractable (Primary Dx) Start: 11-27-2019 End: 12-01-2019 Subsequent hospital visit by physician Tawanna [facility] Schedule [facility] Pre-Admit Testing Start: 11-10-2019 End: 11-12-2019 Subsequent hospital visit by physician Rahul Ct Scan Rm 1 [facility] CT Scan Comment on above: Personal history of tobacco use Start: 11-02-2019 End: 11-02-2019 Emergency department patient visit Adams Stewart Felix Work Phone: [facility] ED Comment on above: Pain, dental (Primar y Dx); Fluid level behind tympanic membrane of left ear Start: 06-23-2019 End: 06-23-2019 Emergency department patient visit Cliff Coleman MD Work Phone: [facility] ED Comment on above: Achalasia (Primary D x); Dyspepsia Start: 06-23-2019 End: 06-25-2019 Subsequent hospital visit by physician Rahul 2 [facility] Radiology Comment on above: Dysphagia, unspecifi ed type Start: 06-17-2019 End: 06-17-2019 Subsequent hospital visit by physician Lisa Leiva MD Work Phone: [facility] DO[facility] Comment on above: Dysuria Start: 04-22-2019 End: 04-22-2019 Subsequent hospital visit by physician Penny [facility] Comment on above: Arrived Start: 04-06-2019 End: 04-06-2019 Subsequent hospital visit by physician Chasity [facility] Patient encounter status No PCP None [facility] Work Phone: Procedures Date Procedure Procedure Detail Performing Clinician Start: 11-09-2024 X-ray of knee, one o r two views Dr. Johana Varela MD Work Phone: Start: 11-09-2024 X-ray of lumbar spin e, two or three views Dr. Johana Varela MD Work Phone: Start: 11-06-[address] Johana Varela MD Work Phone: Start: 05-13-2024 End: 05-13-2024 Basic metabolic panel calcium total Francisco Stephanie DO Work Phone: Start: 05-13-2024 Glucose quantitative blood xcpt reagent strip Francisco Stephanie DO Work Phone: Start: 05-12-2024 Glucose quantitative blood xcpt reagent strip Francisco Stephanie DO Work Phone: Start: 05-12-2024 Glucose quantitative blood xcpt reagent strip Francisco Stephanie DO Work Phone: Start: 05-12-2024 Glucose quantitative blood xcpt reagent strip Francisco Stephanie DO Work Phone: Start: 05-12-2024 Glucose quantitative blood xcpt reagent strip Francisco Stephanie DO Work Phone: Start: 05-11-2024 OXYGEN THERAPY Nely Guardado APRN - ENVELOPE MACHINE ADJUSTER Work Phone: Start: 05-11-2024 Glucose quantitative blood xcpt reagent strip Johana Berg MD Work Phone: Start: 05-11-2024 Glucose quantitative blood xcpt reagent strip Johana Berg MD Work Phone: Start: 05-11-2024 Glucose quantitative blood xcpt reagent strip Johana Berg MD Work Phone: Start: 05-11-2024 Glucose quantitative blood xcpt reagent strip Johana Berg MD Work Phone: Start: 05-11-2024 Iaad ia clostridium difficile toxin Nely Guardado MEETING COORDINATOR - ENVELOPE MACHINE ADJUSTER Work Phone: Start: 05-11-2024 Inf agent det nuclei c acid clostridium amp probe Nely Guardado MEETING COORDINATOR - ENVELOPE MACHINE ADJUSTER Work Phone: Start: 05-11-2024 Basic metabolic pane l calcium total Nely Guardado MEETING COORDINATOR - ENVELOPE MACHINE ADJUSTER Work Phone: Start: 05-10-2024 Glucose quantitative blood xcpt reagent strip Edward Morales MD Work Phone: Start: 05-10-2024 OXYGEN THERAPY Nely Guardado MEETING COORDINATOR - ENVELOPE MACHINE ADJUSTER Work Phone: Start: 05-10-2024 Respiratory pathogen s DNA and RNA panel - Nasopharynx by CYNTHIA with non-probe detection Nely Guardado MEETING COORDINATOR - ENVELOPE MACHINE ADJUSTER Work Phone: Start: 05-10-2024 End: 05-10-2024 Natriuretic peptide Nely Guardado AP RN - ENVELOPE MACHINE ADJUSTER Work Phone: Start: 05-10-2024 Culture bacterial quanttative colony count urine Nely Guardado MEETING COORDINATOR - ENVELOPE MACHINE ADJUSTER Work Phone: Start: 05-10-2024 Urinalysis complete panel - Urine Lynn Sosa Delores DO Work Phone: Start: 05-10-2024 Radiologic exam ches t single view Lynn Sosa Delores DO Work Phone: Start: 05-10-2024 SARS-COV-2, FLU A/B, AND RSV COMBO Lynn Sosa Delores DO Work Phone: Start: 05-10-2024 OXYGEN THERAPY Nely Guardado MEETING COORDINATOR - ENVELOPE MACHINE ADJUSTER Work Phone: Start: 05-10-2024 Comprehensive metabo lic panel Lynn Sosa Delores DO Work Phone: Start: 05-10-2024 Manual Differential panel - Blood Mejonas Estrella DO Work Phone: Start: 02-06-2023 Comprehensive metabo lic panel Brock Hawkins MD Work Phone: Start: 02-06-2023 Microscopic observat ion [Identifier] in Cervix by Cyto stain Halie Loomis SUPERVISOR PAINT-S Work Phone: Start: 01-08-2023 Adult depression scr eening assessment Halie Loomis SUPERVISOR PAINT-S Work Phone: Start: 10-09-2022 Microalbumin [Mass/v olume] in Urine by Test strip Halie Loomis SUPERVISOR PAINT-S Work Phone: Start: 09-03-2022 Glucose blood reagent strip Frederic Dc MD Work Phone: Start: 09-03-2022 Glucose blood reagent strip Frederic Dc MD Work Phone: Start: 09-01-2022 Glucose blood reagent strip Frederic Dc MD Work Phone: Start: 08-31-2022 Glucose blood reagent strip Frederic Dc MD Work Phone: Start: 08-31-2022 Glucose blood reagent strip Frederic Dc MD Work Phone: Start: 08-31-2022 COVID-19, RAPID Joaquin ie Krliang DO Work Phone: Start: 08-30-2022 Glucose blood reagent strip Frederic Dc MD Work Phone: Start: 08-30-2022 Glucose blood reagent strip Frederic Dc MD Work Phone: Start: 08-29-2022 Glucose blood reagent strip Frederic Dc MD Work Phone: Start: 08-28-2022 Glucose blood reagent strip Frederic Dc MD Work Phone: Start: 08-28-2022 Glucose blood reagent strip Frederic Dc MD Work Phone: Start: 08-27-2022 End: 08-27-2022 Glucose blood reagent strip Frederic rubio MD Work Phone: Start: 08-26-2022 Glucose blood reagent strip Frederic Dc MD Work Phone: Start: 08-24-2022 Glucose blood reagent strip José Miguel Urbano MD Work Phone: Start: 08-23-2022 Glucose blood reagent strip Eduard Yanes DO Work Phone: Start: 08-23-2022 Glucose blood reagent strip Eduard Yanes DO Work Phone: Start: 08-23-2022 Renal function panel Eu gene Yanes DO Work Phone: Start: 08-22-2022 Glucose blood reagent strip Eduard Yanes DO Work Phone: Start: 08-22-2022 Glucose blood reagent strip Eduard Yanes DO Work Phone: Start: 08-22-2022 Glucose blood reagent strip Eduard Yanes DO Work Phone: Start: 08-22-2022 BASIC METABOLIC PANE L W/ REFLEX TO MG FOR LOW K Radha Purdy MEETING COORDINATOR - ENVELOPE MACHINE ADJUSTER Work Phone: Start: 08-22-2022 C-reactive protein Tania Purdy MEETING COORDINATOR - ENVELOPE MACHINE ADJUSTER Work Phone: Start: 08-21-2022 Glucose blood reagent strip Mohammad I Mashaleh DO Work Phone: Start: 08-21-2022 Glucose blood reagent strip Mohammad I Mashaleh DO Work Phone: Start: 08-21-2022 Glucose blood reagent strip Mohammad I Mashaleh DO Work Phone: Start: 08-21-2022 Dup-scan xtr veins c omplete bilateral study Narendra Zendejas MD Work Phone: Start: 08-21-2022 Glucose blood reagent strip Mohammad I Mashaleh DO Work Phone: Start: 08-21-2022 BASIC METABOLIC PANE L W/ REFLEX TO MG FOR LOW K Radha Purdy MEETING COORDINATOR - ENVELOPE MACHINE ADJUSTER Work Phone: Start: 08-21-2022 Radiologic examinati on femur minimum 2 views Narendra Zendejas MD Work Phone: Start: 08-21-2022 Assay of lactate Jose Zendejas MD Work Phone: Start: 08-21-2022 Basic metabolic pane l calcium total Narendra Zendejas MD Work Phone: Start: 08-30-2021 Radiologic examinati on knee 3 views Jed Conley DO Work Phone: Start: 01-27-2021 Urnls dip stick/tabl et rgnt auto w/o microscopy Vasiliy Griffin Work Phone: Start: 12-02-2020 CT LUNG SCREENING Mitchell Avila MD Work Phone: Start: 10-26-2020 Thyrotropin [Units/v olume] in Serum or Plasma Naliniabbe Estrella DO Work Phone: Start: 10-20-2020 Potassium [Moles/vol ume] in Serum or Plasma Morales Sammy Clarisa Start: 10-13-2020 Brncdilat rspse spmt ry pre&post-brncdilat admn Axel Avila MD Work Phone: Start: 10-11-2020 Comprehensive metabo lic panel Vasiliy Griffin Work Phone: Start: 09-29-2020 Basic metabolic pane l calcium total Penny Rodgers DO Work Phone: Start: 08-20-2020 Urine albumin quantitative Yusef Douglas Work Phone: Start: 08-20-2020 Assay of free thyroxine Yusef Douglas Work Phone: Start: 08-20-2020 Assay of thyroid stimulating hormone tsh Yusef Douglas Work Phone: Start: 08-20-2020 Comprehensive metabo lic panel Yusef Douglas Work Phone: Start: 08-20-2020 Cyanocobalamin vitamin b-12 Yusef Douglas Work Phone: Start: 08-20-2020 Hemoglobin glycosylated a1c Yusef Douglas Work Phone: Start: 08-20-2020 Lipid panel Yusef loepz Work Phone: Start: 08-20-2020 Lipid 1996 panel - S jesenia or Plasma Lynn Estrella DO Work Phone: Start: 03-11-2020 Glucose blood reagent strip Mitch Steiner Cal Work Phone: Start: 03-11-2020 Glucose blood reagent strip Mtich Steiner Cal Work Phone: Start: 03-07-2020 COVID-19 AMBULATORY Bhavin s E Green Work Phone: Start: 02-26-2020 Assay of urea nitrog en quantitative Genna Abebe Work Phone: Start: 02-26-2020 Blood count hemoglobin Genna Abebe Work Phone: Start: 02-26-2020 Electrolyte panel Genna Abebe Work Phone: Start: 02-26-2020 Glucose quantitative blood xcpt reagent strip Genna Abebe Work Phone: Start: 02-26-2020 Ecg routine ecg w/le ast 12 lds trcg only w/o i&r Genna Abebe Work Phone: Start: 02-26-2020 EKG REPORT Hpf Scanni ng Start: 12-17-2019 Screening digital br east tomosynthesis bi Lisa Roalkvam Work Phone: Start: 12-17-2019 Mammography Lynn christianson DO Work Phone: Start: 12-01-2019 Glucose blood reagent strip Olga Zeng Work Phone: Start: 11-27-2019 COVID-19 Issa Jau regui Work Phone: Start: 11-10-2019 Ldct for lung ca screen Axel Avila Work Phone: Start: 06-23-2019 End: 06-23-2019 Radiologic exam swallow function contrast study Olga eZng MD Work Phone: Start: 11-29-2014 Microscopic observat ion [Identifier] in Cervix by Cyto stain Pito Moreau DO Work Phone: Start: 12-16-2012 Diabetic retinal eye exam Haliedl JACKSONS Work Phone: Plan of Treatment Date Care Activity Detail Author Start: 02-15-2028 Pneumococcal 0-64 years Vaccine (2 of 2 - PPSV23) Pneumococcal 0-64 years Vaccine (2 of 2 - PPSV23) [facility] Start: 02-15-2028 Pneumococcal 0-64 years Vaccine (2 of 2) Pneumococcal 0-64 years Vaccine (2 of 2) [facility] Work Phone: Start: 02-01-2027 DTaP,Tdap and Td Vaccines (2 - Td or Tdap) DTaP,Tdap and Td Vaccines (2 - Td or Tdap) [facility] Start: 02-01-2027 DTaP/Tdap/Td vaccine (2 - Td or Tdap) DTaP/Tdap/Td vaccine (2 - Td or Tdap) [facility] Start: 02-01-2027 DTaP/Tdap/Td vaccine (2 - Td) DTaP/Tdap/Td vaccine (2 - Td) [place] Start: 02-01-2027 DTaP/Tdap/Td Vaccines (2 - Td or Tdap) DTaP/Tdap/Td Vaccines (2 - Td or Tdap) [facility] Start: 02-06-2026 Screening for malignant neoplasm of cervix Pap Smear [facility] Start: 05-13-2025 Creatinine measurement Creatinine Level [facility] Start: 05-13-2025 Diabetes: Estimated Glomerular Filtration Rate for Kidney Health Diabetes: Estimated Glomerular Filtration Rate for Kidney Health [facility] Start: 05-13-2025 Potassium measurement Potassium Level [facility] Start: 12-02-2025 Hemoglobin A1c measurement Diabetes: Hemoglobin A1C [facility] Start: 02-08-2025 Influenza vaccination Influenza Vaccine [facility] Start: 11-06-2024 Colsc flx w/rmvl of tumor polyp lesion snare tq COLONOSCOPY W/LESION REMOVAL [facility] Start: 11-06-2024 Patient discharge [facility] Start: 08-07-2024 Tobacco Counseling Tobacco Counseling [facility] Start: 02-09-2024 COVID-19 Vaccine ( season) COVID-19 Vaccine ( season) [facility] Start: 02-09-2024 Influenza vaccination Influenza Vaccine [facility] Start: 02-07-2024 Adult BMI Screening Adult BMI Screening [facility] Start: 02-07-2024 GFR test (Diabetes, CKD 3-4, OR last GFR 15-59) GFR test (Diabetes, CKD 3-4, OR last GFR 15-59) [facility] Start: 02-07-2024 Tobacco Screening Tobacco Screening [facility] Start: 01-09-2024 Depression Screening Depression Screening [facility] Start: 10-10-2023 Urine screening for protein Urine Microalbumin [facility] Start: 08-24-2023 GFR test (Diabetes, CKD 3-4, OR last GFR 15-59) GFR test (Diabetes, CKD 3-4, OR last GFR 15-59) [facility] Start: 07-29-2023 End: 07-29-2023 Patient encounter procedure 07/29/2023 12:00 PM EST Office Visit [facility] [address] [place] [phone] Desire Samuel MD [address] [place] [address], [address], [address] [place] [address] [facility] Start: 07-18-2023 End: 07-18-2023 Patient encounter procedure 07/18/2023 3:15 PM EST Office Visit [facility] [address] [place] [phone] Bobby Ayala W, OD [address] [facility] [place] [address] [facility] Start: 06-10-2023 Medicare Advantage Annual Wellness Visit Medicare Advantage Annual Wellness Visit [facility] Start: 04-03-2023 Hemoglobin A1c measurement A1C test (Diabetic or Prediabetic) [facility] Start: 02-23-2023 Screening for malignant neoplasm of lung Low dose CT lung screening [facility] [employer] Start: 2023 RSV Immunization for Adults (1 - Risk 60-74 years 1-dose series) RSV Immunization for Adults (1 - Risk 60-74 years 1-dose series) [facility] Start: 02-08-2023 COVID-19 Vaccine ( season) COVID-19 Vaccine ( season) [facility] Start: 02-08-2023 Influenza vaccination Influenza Vaccine [facility] Start: 01-08-2023 Influenza vaccination Flu vaccine (#1) [facility] [employer] Start: 12-16-2021 Screening for malignant neoplasm of breast Breast cancer screen [facility] Start: 12-02-2021 Screening for malignant neoplasm of lung [facility] Start: 11-24-2021 Hemoglobin A1c measurement A1C test (Diabetic or Prediabetic) [facility] Start: 10-26-2021 Thyroid stimulating hormone measurement TSH Level [facility] Start: 10-11-2021 Creatinine measurement Creatinine monitoring [facility] Start: 10-11-2021 Potassium monitoring Potassium monitoring [facility] Start: 10-11-2021 Thyroid stimulating hormone measurement TSH testing [facility] Start: 09-29-2021 Creatinine measurement Creatinine monitoring [facility] Work Phone: Start: 09-29-2021 Potassium monitoring Potassium monitoring [facility] Phone: Start: 09-08-2021 Annual Wellness Visit (AWV) Annual Wellness Visit (AWV) [facility] Start: 08-20-2021 Creatinine measurement Creatinine monitoring [facility] Phone: Start: 08-20-2021 Diabetes: Urine Albumin-Creatinine Ratio for Kidney Health Diabetes: Urine Albumin-Creatinine Ratio for Kidney Health [facility] Start: 08-20-2021 Diabetic microalbuminuria test Diabetic microalbuminuria test [facility] Phone: Start: 08-20-2021 HbA1c (Bld) [Mass fraction] A1C test (Diabetic or Prediabetic) [facility] Phone: Start: 08-20-2021 Hemoglobin A1c measurement A1C test (Diabetic or Prediabetic) [facility] Start: 08-20-2021 Lipid panel [facility] Start: 08-20-2021 Potassium monitoring Potassium monitoring [facility] Phone: Start: 08-20-2021 Thyroid stimulating hormone measurement TSH testing [facility] Phone: Start: 08-20-2021 TSH Qn TSH testing [facility] Phone: Start: 08-20-2021 Urine screening for protein [facility] Start: 07-08-2021 Screening for malignant neoplasm of cervix Cervical cancer screen [facility] Phone: Comment on above: Postponed from 11/29/2017 (Not Indicated ) Start: 06-22-2021 Annual Wellness Visit (AWV) Annual Wellness Visit (AWV) [facility] Phone: Start: 06-21-2021 Depression Screen Depression Screen [facility] Start: 05-23-2021 Glaucoma screening Diabetes: Retinopathy Screening [facility] Start: 05-01-2021 COVID-19 Vaccine (4 - Booster for Pfizer series) COVID-19 Vaccine (4 - Booster for Pfizer series) TIARRA VELA [facility] MD Start: 02-28-2021 Diabetic foot examination Diabetic foot exam [facility] Start: 02-25-2021 Creatinine measurement Creatinine monitoring [facility] [place] Start: 02-25-2021 Potassium monitoring Potassium monitoring [facility] [place] Start: 02-08-2021 Influenza vaccination Flu vaccine (#1) [facility] Phone: Start: 01-13-2021 End: 01-13-2021 Patient encounter procedure 01/13/2021 Office Visit Pulmonology Axel Avila MD [address] [facility] [address] [place] [address] [phone] [facility] Start: 12-16-2020 Screening for malignant neoplasm of breast Mammogram [facility] [employer] Start: 12-02-2020 End: 12-02-2020 Patient encounter procedure 12/02/2020 Appointment Radiology [facility] Scan Start: 11-11-2020 End: 11-11-2020 Patient encounter procedure 11/11/2020 Appointment Radiology [facility] [address] Scan Start: 11-09-2020 Screening for malignant neoplasm of lung Low dose CT lung screening [facility] Start: 10-25-2020 End: 10-26-2021 [facility] Comment on above: IF patient HAS a secure IV access & is U nconscious, Conscious, NPO or Unable to Eat or Drink. Repeat until BG reaches 100 mg/dL or greater. Push 2-3 mL/minute. Discontinue once BG reaches 100 mg/dL or greater. IF patient DOES NOT have secure IV access & is Unconscious, Conscious, NPO or Unable to Eat or Drink. Repeat until BG reaches 100 mg/dL or greater. Discontinue once BG reaches 100 mg/dL or greater. Start: 10-25-2020 End: 10-26-2021 Atorvastatin 20 mg Oral Tablet Daily ; Tablet (LIPITOR)DOSE = 20 mg Oral Daily Start: 25-Oct-2020 End: 25-Oct-2021 Ordered: 25-Oct-2020 Nicole Deleon Intent [facility] Start: 10-23-2020 Breast cancer screen Breast cancer screen [facility] Start: 10-23-2020 Screening for malignant neoplasm of breast Breast cancer screen [facility] Start: 10-19-2020 End: 10-22-2020 Technetium Tc 99m Sulfur Colloid - (Radiology Contrast) . ; DOSE = 500 microCurie Oral Once Start: 19-Oct-2020 End: 21-Oct-2020 Ordered: 19-Oct-2020 Madi Ornelas [facility] Start: 10-13-2020 End: 10-13-2020 Patient encounter procedure 10/13/2020 Appointment Pulmonary Function Testing [facility] Pulm Function Test Start: 10-08-2020 End: 10-08-2020 Patient encounter procedure 10/08/2020 Appointment Lab [facility] Covid Screening - [facility] Start: 10-06-2020 End: 10-06-2021 COVID-19 COVID-19 Lab Routine COVID-19 ruled out by laboratory testing Expected: 10/06/2020, Expires: 10/06/2021 [facility] Phone: Comment on above: Expected: 10/06/2020, Expires: Start: 09-16-2020 End: 09-16-2020 Office Visit 09/16/2020 Office Visit Pulmonology Axel Avila MD [address] [place], [place] [id number] [facility] [facility] Start: 09-15-2020 End: 09-15-2020 Office Visit 09/15/2020 Office Visit Bariatrics Manfred Kc DO [address] [facility] [address] [place] [phone] [facility] Invasive Bariatric Surg Start: 07-26-2020 End: 07-26-2020 Office Visit 07/26/2020 Office Visit Pulmonology Axel Avila MD [address] [place], [place] [phone] [facility] Start: 06-30-2020 Screening for malignant neoplasm of cervix Cervical cancer screen [facility] Comment on above: Postponed from 11/29/2017 (Patient Refus ed) Start: 05-28-2020 Annual Wellness Visit (AWV) Annual Wellness Visit (AWV) [facility] Start: 05-27-2020 Annual Wellness Visit (AWV) Annual Wellness Visit (AWV) [facility] Phone: Start: 05-24-2020 Diabetic retinal exam Diabetic retinal exam [facility] Comment on above: Postponed from 09/26/2016 (Patient Refus ed) Start: 03-26-2020 A1C test (Diabetic or Prediabetic) A1C test (Diabetic or Prediabetic) [place] Start: 03-26-2020 HbA1c (Bld) [Mass fraction] A1C test (Diabetic or Prediabetic) [place] Start: 03-26-2020 Pneumococcal 0-64 years Vaccine (2 - PCV) Pneumococcal 0-64 years Vaccine (2 - PCV) [facility] Start: 03-26-2020 Pneumococcal Vaccine: Pediatrics (0 to 5 Years) and At-Risk Patients (6 to 64 Years) (3 of 3 - PCV) Pneumococcal Vaccine: Pediatrics (0 to 5 Years) and At-Risk Patients (6 to 64 Years) (3 of 3 - PCV) [facility] Start: 03-25-2020 End: 03-25-2020 Office Visit 03/25/2020 Office Visit Family Medicine Lisa Leiva MD [address] [place], [place] [phone] [facility] Start: 03-11-2020 End: 03-11-2020 Hospital Encounter [facility] Comment on above: DENTAL EXTRACTION X4 Start: 03-09-2020 Shingles Vaccine (2 of 2) Shingles Vaccine (2 of 2) [place] Start: 03-07-2020 End: 03-07-2020 Appointment 03/07/2020 Appointment Pre-Admission Testing [facility] Pre-Admit Testing Start: 02-29-2020 End: 02-29-2020 Office Visit 02/29/2020 Office Visit Family Medicine Lisa Leiva MD [address] [place] [address] [phone] [facility] Start: 02-09-2020 Influenza vaccination Flu vaccine (#1) [place] Start: 01-19-2020 End: 01-19-2020 Office Visit [facility] Start: 01-08-2020 End: 01-08-2020 Hospital Encounter [facility] Comment on above: DENTAL EXTRACTIONS X4 Start: 01-07-2020 End: 01-07-2020 Initial consult 01/07/2020 Initial consult Bariatrics Manfred Kc, DO [address] [facility] [address] [place] [address] [phone] [facility] Invasive Bariatric Surg Start: 01-04-2020 End: 01-04-2020 Appointment 01/04/2020 Appointment Pre-Admission Testing [facility] Pre-Admit Testing Start: 12-29-2019 End: 12-29-2019 Office Visit 12/29/2019 Office Visit Family Medicine Fay Helms MD [address] [place] [address] [phone] [facility] Start: 12-25-2019 End: 12-25-2019 Appointment 12/25/2019 Appointment Pre-Admission Testing [facility] Pre-Admit Testing Start: 12-24-2019 End: 12-24-2019 Office Visit 12/24/2019 Office Visit Family Medicine Lisa Leiva MD [address] [place] [address] [phone] [facility] Start: 12-17-2019 End: 12-17-2019 Appointment 12/17/2019 Appointment Radiology [facility] Start: 12-01-2019 End: 12-01-2019 Hospital Encounter [facility] [place] Comment on above: EGD ESOPHAGOGASTRODUODENOSCOPY Start: 11-26-2019 Colon Cancer Screen FIT/FOBT Colon Cancer Screen FIT/FOBT [place] Start: 11-26-2019 Screening for malignant neoplasm of colon [facility] Start: 11-10-2019 End: 11-10-2019 Appointment 11/10/2019 Appointment Radiology [facility] CT Scan Start: 10-31-[address] lung screening Low dose CT lung screening [place] Start: 10-31-2019 Screening for malignant neoplasm of lung Low dose CT lung screening [place] Start: 08-28-2019 Hepatitis B Vaccine (1 of 3 - Risk 3-dose series) Hepatitis B Vaccine (1 of 3 - Risk 3-dose series) [place] Comment on above: Postponed from 1982 (Patient Refus ed) Start: 08-28-2019 Shingles Vaccine (1 of 2) Shingles Vaccine (1 of 2) [place] Comment on above: Postponed from 2013 (Unavailable) Start: 07-21-2019 End: 07-21-2019 Office Visit 07/21/2019 Office Visit Pulmonology Axel Avila MD [address] [facility] [address] [place] [address] [phone] [facility] Start: 07-18-2019 Annual Wellness Visit (AWV) [facility] Start: 07-02-2019 End: 07-02-2019 Patient encounter procedure 07/02/2019 Office Visit Gastroenterology Olga Zeng MD [address] [place] [address] [phone] [facility] [employer] Start: 06-30-2019 End: 06-30-2019 Patient encounter procedure 06/30/2019 Office Visit Family Medicine Lisa Leiva MD [address] [place] [address] [phone] [facility] Start: 06-23-2019 End: 06-23-2019 Patient encounter procedure 06/23/2019 Appointment Radiology [facility] Start: 05-04-2019 End: 05-04-2019 Office Visit 05/04/2019 Office Visit Family Medicine Lisa Leiva MD [address] [facility] [place] [address] [phone] [facility] Start: 04-23-2019 End: 04-23-2019 Office Visit 04/23/2019 Office Visit GastroenterOlga Mendiola MD [address] [place] [address] [phone] [facility] Start: 04-14-2019 TSH Qn [facility] testing [facility] Start: 04-14-2019 TSH testing TSH testing [facility] Start: 01-28-2019 [object Object] Diabetic foot exam [facility] Start: 01-28-2019 Diabetic foot examination Diabetic foot exam [place] Start: 10-31-2018 Creatinine measurement Creatinine monitoring [facility] Start: 10-31-2018 Creatinine monitoring Creatinine monitoring [place] Start: 10-31-2018 Diabetic microalbuminuria test Diabetic microalbuminuria test [place] Start: 10-31-2018 Lipid panel Lipid [place] Start: 10-31-2018 Lipid screen Lipid [place] Start: 10-31-2018 Potassium monitoring Potassium monitoring [place] Start: 11-29-2017 Cervical cancer screen Cervical cancer screen [place] Start: 11-29-2017 Screening for malignant neoplasm of cervix [facility] Start: 09-26-2016 Diabetic retinal exam Diabetic retinal exam [facility] Start: 09-26-2016 Glaucoma screening Diabetic retinal exam [facility] Start: 12-16-2013 Glaucoma screening Diabetic Ophthalmology Exam [facility] Start: 2013 Shingles Vaccine (1 of 2) Shingles Vaccine (1 of 2) [place] Start: 08-11-2009 MMR Vaccines (1 of 1 - Standard series) MMR Vaccines (1 of 1 - Standard series) [facility] Start: 02-15-2008 Screening for malignant neoplasm of colon [facility] Start: 1993 Screening for malignant neoplasm of cervix [facility] Start: 1982 Hepatitis B vaccine (1 of 3 - Risk 3-dose series) Hepatitis B vaccine (1 of 3 - Risk 3-dose series) [facility] Start: 1981 Adult BMI Follow Up Plan Adult BMI Follow Up Plan [facility] Start: 1981 Diabetic foot examination Diabetic Foot Exam [facility] Start: 1981 Hepatitis C screening Hepatitis C Screening [facility] [employer] Start: 1979 COVID-19 Vaccine (1) COVID-19 Vaccine (1) [facility] Phone: Start: 1975 COVID-19 Vaccine (1) COVID-19 Vaccine (1) [facility] Phone: Start: 1975 Depression Monitoring Depression Monitoring [facility] [employer] Start: 1975 Depression Screen Depression Screen [facility] Start: 1973 Diabetic foot examination Diabetes: Foot Exam [facility] Start: 1973 Preventive dental service Diabetes: Dental Exam [facility] Start: 1963 Echocardiography Echocardiogram [facility] Start: 1963 Screening for malignant neoplasm of colon [facility] Start: 1963 Statin Use: Cardiovascular Statin Use: Cardiovascular [facility] Start: 1963 Statin Use: Diabetic Statin Use: Diabetic [facility] End: 06-17-2019 Bacteria identified in Urine by Culture Urine Culture Microbiology Routine Dysuria 1 Occurrences starting 06/17/2019 until 06/17/2019 [facility] Phone: Comment on above: 1 Occurrences starting 06/17/2019 until 06/17/2019 End: 08-27-2022 CBC panel - Blood by Automated count CBC Lab Routine Daily for 5 Days starting 08/23/2022 until 08/27/2022, 1 completed [employer] Phone: Comment on above: Daily for 5 Days starting 08/23/2022 unt il 08/27/2022, 1 completed End: 02-06-2023 CBC panel - Blood by Automated count [facility] Phone: Comment on above: Once for 1 Occurrences starting 02/07/20 until 02/06/2023 End: 02-06-2023 Comprehensive metabolic 2000 panel - Serum or Plasma [facility] Comment on above: Once for 1 Occurrences starting 02/07/20 until 02/06/2023 End: 01-27-2021 Culture, Urine Culture, Urine Microbiology Routine Once for 1 Occurrences starting 01/27/2021 until 01/27/2021 [facility] Phone: Comment on above: Once for 1 Occurrences starting 01/28/20 21 until 01/27/2021 Culture, Urine [facility] Phone: Glucose [Mass/volume ] in Serum or Plasma POCT Glucose Point of Care Testing STAT As Needed until discontinued starting 08/21/2022 [employer] Phone: Comment on above: As Needed until discontinued starting End: 02-06-2023 Hemoglobin A1c/Hemoglobin.total in Blood [facility] Comment on above: Once for 1 Occurrences starting 02/07/20 until 02/06/2023 Initiate Oxygen Therapy Protocol Initiate Oxygen Therapy Protocol Respiratory Care Routine Daily until discontinued starting 12/01/2019 [facility] Comment on above: Daily until discontinued starting 2019 Intermittent pulse oximetry Puls e Oximetry Spot Check Respiratory Care Routine As Needed until discontinued starting 08/21/2022 [facility] Work Phone: Comment on above: As Needed until discontinued starting End: 08-27-2022 Magnesium [Mass/volume] in Serum or Plasma Magnesium Lab Routine Daily for 5 Days starting 08/23/2022 until 08/27/2022, 1 completed [facility] Work Phone: Comment on above: Daily for 5 Days starting 08/23/2022 unt il 08/27/2022, 1 completed Oxygen therapy [Mini mum Data Set] Initiate Oxygen Therapy Protocol Respiratory Care Routine Daily until discontinued starting 03/11/2020 [facility] Comment on above: Daily until discontinued starting 2019 Oxygen therapy [Mini mum Data Set] Initiate Oxygen Therapy Protocol Respiratory Care Routine As Needed until discontinued starting 08/21/2022 [facility] Work Phone: Comment on above: As Needed until discontinued starting Oxygen therapy [Mini mum Data Set] Initiate Oxygen Therapy Protocol Respiratory Care Routine As Needed until discontinued starting 08/24/2022 [facility] Work Phone: Comment on above: As Needed until discontinued starting Patient referral [facility] Work Phone: Phase I & II - metered glucose P hase I & II - metered glucose Point of Care Testing Routine As Needed until discontinued starting 12/01/2019 [facility] Comment on above: As Needed until discontinued starting End: 03-11-2020 POCT Glucose POCT Glucose Point of Care Testing Routine One Time for 1 Occurrences starting 03/11/2020 until 03/11/2020 [facility] [place] Comment on above: One Time for 1 Occurrences starting 07/2019 until 03/11/2020 End: 08-27-2022 Renal Function Panel Renal Function Panel Lab Routine Daily for 5 Days starting 08/23/2022 until 08/27/2022, 1 completed [facility] [employer] Work Phone: Comment on above: Daily for 5 Days starting 08/23/2022 unt il 08/27/2022, 1 completed End: 08-25-2022 Speech and language therapy regime [employer] eval and treat [employer] Routine One Time for 1 Occurrences starting 08/25/2022 until 08/25/2022 [facility] [employer] Work Phone: Comment on above: One Time for 1 Occurrences starting 08/08 until 08/25/2022 Surgical Pathology Surgical Path ology Lab Routine Release Upon Ordering for 1 Occurrences starting 12/01/2019 [facility] [place] Comment on above: Release Upon Ordering for 1 Occurrences starting 12/01/2019 End: 12-01-2019 Surgical Pathology Surgical Pathology Lab Routine Once for 1 Occurrences starting 12/01/2019 until 12/01/2019 [facility] [place] Comment on above: Once for 1 Occurrences starting 12/01/19 until 12/01/2019 End: 02-06-2023 Thyrotropin [Units/volume] in Serum or Plasma [facility] Comment on above: Once for 1 Occurrences starting 02/07/20 until 02/06/2023 End: 02-06-2023 Thyroxine (T4) free [Mass/volume] in Serum or Plasma [facility] Comment on above: Once for 1 Occurrences starting 02/07/20 until 02/06/2023 Immunizations Immunization Date Immunization Notes Care Provider Paula sandoval 03-28-2022 Influenza, injectabl e, Madin Anita Canine Kidney, preservative free, quadrivalent Halie CAI-S Work Phone: [facility] 03-28-2022 influenza virus vaccine, unspecified formulation Halie GUERREROW-S Work Phone: [facility] 04-04-2021 influenza virus vaccine, unspecified formulation Pito Moreau DO Work Phone: [facility] Work Phone: 04-04-2021 influenza, injectabl e, quadrivalent, preservative free Halie Ebonie SUPERVISOR PAINT-S Work Phone: [facility] 03-06-2021 Pfizer SARS-CoV-2 Vaccination Mejonas Estrella DO Work Phone: [facility] 07-10-2020 Pfizer SARS-CoV-2 Vaccination Mejonas Delores DO Work Phone: [facility] 06-19-2020 Pfizer SARS-CoV-2 Vaccination Mejonas Campya DO Work Phone: [facility] 04-29-2020 zoster vaccine recombinant Halie Ebonie SUPERVISOR PAINT-S Work Phone: [facility] 03-21-2020 Influenza, High-dose , Quadv, 65 yrs +, IM (Fluzone) [facility] 03-17-2020 influenza, injectabl e, quadrivalent, preservative free Halie Ebonie SUPERVISOR PAINT-S Work Phone: [facility] 01-13-2020 zoster vaccine recombinant [facility] [place] [facility] [place] 12-29-2019 zoster recombinant adjuvanted vaccine (SHINGRIX) 50 MCG/0.5ML SUSR injection [facility] [place] [facility] [place] 03-26-2019 influenza, injectabl e, quadrivalent, preservative free [facility] 03-26-2019 pneumococcal polysaccharide vaccine, 23 valent [facility], [place] 03-10-2019 pneumococcal polysaccharide vaccine, 23 valent Halie Ebonie SUPERVISOR PAINT-S Work Phone: [facility] 03-10-2019 seasonal influenza, intradermal, preservative free [facility] [place] [facility] [place] 03-25-2018 influenza, intraderm al, quadrivalent, preservative free, injectable [facility], [place] 03-21-2017 influenza virus vaccine, unspecified formulation [facility] 03-21-2017 influenza, injectabl e, quadrivalent, contains preservative Halie BRITT Work Phone: [facility] [facility] 03-21-2017 Influenza, Quadv, 6 mo and older, IM (Fluzone, Flulaval) [facility] 02-01-2017 tetanus toxoid, redu fanny diphtheria toxoid, and acellular pertussis vaccine, adsorbed [facility] 03-09-2014 influenza virus vaccine, whole virus [facility], [place] 05-21-2013 pneumococcal Conjuga te, unspecified formulation [facility] , [place] 07-14-2009 novel [id number], preservative-free, injectable [facility], [place] 04-22-2002 influenza virus vaccine, unspecified formulation [facility] 04-30-2001 influenza virus vaccine, unspecified formulation [facility] NEGATED: Highlighted row has not occurred!05-11-2024 influenza, injectable, madin anita canine kidney, preservative free Lynn Estrella DO Work Phone: [facility] [employer] Comment on above: Deferred: Other Payers Date Payer Category Payer Private Health Insurance [id number] 2024 Self-pay 2024 Medicare HMO [facility] [id number] 2024 Medicare [id number] 2021 Medicare [id number] .[id number] 2018 Unknown [employer] D UAL BENEFITS [employer] DUAL xxxxxxxxxxx 2018-Present [address] [place] [id number] xxxxxxxxxxx [id number] .[id number] 2018 Unknown [employer] D UAL BENEFITS [employer] DUAL xxxxxxxxxxxx 2018-Present [address] [place] [id number] xxxxxxxxxxxx [id number] .[id number] 2018 Unknown [employer] D UAL BENEFITS [employer] DUAL [id number] 2018-Present [address] [place] [id number] .[id number] 2017 Medicaid [id number] .[id number] 2014 Unknown [id number] 1.2.840.559270.1.13.239.2 .7.3.951290.315 1992 Medicare [id number]. 1.13.424.2 .[id number] 1992 Medicare [id number] 1.2.840.599043.1.13.239.2 .7.3.989705.315 1963 Unknown [id number] 2.16.840.1.323543.3.579.2 .175 1963 Unknown [id number] 2.16.840.1.619584.3.579.2 .175 1963 Unknown [id number] 2.16.840.1.264654.3.579.2 .175 1963 Unknown [id number] 2.16.840.1.872949.3.579.2 .175 1963 Unknown [id number] 2.16.840.1.218881.3.579.2 .177 1963 Unknown [id number] 2.16.840.1.329327.3.579.2 .177 1963 Unknown [id number] 2.16.840.1.310455.3.579.2 .1213 1963 Unknown [id number] 2.16.840.1.163767.3.579.2 .1213 1963 Unknown [id number] 2.16.840.1.729248.3.579.2 .1213 1963 Unknown [id number] 2.16.840.1.135965.3.579.2 .3 1963 Unknown [id number] 2.16.840.1.019485.3.579.2 .1213 1963 Unknown [id number] 2.16.840.1.072588.3.579.2 .627 1963 Unknown [id number] 2.16.840.1.775543.3.579.2 .627 1963 Unknown [id number] 2.16.840.1.662393.3.579.2 .627 1963 Unknown [id number] 2.16.840.1.749220.3.579.2 .627 Unknown Unknown [id number] 2.16.840.1.423901.3.579.2 .462 Unknown [id number] 2.16.840.1.852197.3.579.2 .462 Unknown [id number] 2.16.840.1.653512.3.579.2 .462 Unknown [id number] 2.16.840.1.557824.3.579.2 .462 Unknown [id number] 2.16.840.1.313546.3.579.2 .462 Social History Date Type Detail Facility Start: 03-26-2019 End: 10-20-2020 Tobacco smoking status NHIS Current some day smoker [place] Start: 06-10-1974 End: 09-15-2020 History of tobacco use Cigarette Smoker [place] Start: 03-26-2019 End: 08-18-2022 Cigarettes smoked current (pack per day) - Reported [facility] Start: 03-26-2019 End: 08-18-2022 Alcohol intake No [facility] Start: 1965 Sex Assigned At Not on file [place] Start: 03-26-2019 End: 02-06-2023 Alcohol intake Current non-drinker of alcohol (finding) [place] Start: 11-02-2019 End: 12-02-2024 Tobacco smoking status NHIS Former smoker [facility] End: 03-28-2019 History of tobacco use Current smoker [facility] Work Phone: Exposure to SARS-CoV-2 (event) Unable to assess [place] Start: 12-02-2019 Tobacco Comment smokes occassionally [place] Start: 12-02-2019 End: 09-29-2020 Tobacco use and exposure Never used [place] Start: 08-20-2021 End: 08-24-2022 Exposure to SARS-CoV-2 (event) Not sure [place] Start: 06-10-1974 End: 02-06-2023 Tobacco smoking status NHIS Current every day smoker [facility] Has the electric, gas, oil, or water company threatened to shut off services in your home in past 12Mo No [facility] How often to you hav e a drink containing alcohol? Never [facility] How many standard drinks containing alcohol do you have on a typical day? Patient does not drink [facility] (I/We) worried whether (my/our) food would run out before (I/we) got money to buy more. Never true [facility] Start: 01-11-2015 End: 01-08-2022 Sex Female (finding) [facility] Tobacco smoking status NHIS Tobacco smoking consumption unknown [facility] Start: 02-06-2023 Tobacco use and exposure [facility]okeless [facility] Are you now , , , , never or living with a partner? Never [facility] How hard is it for you to pay for the very basics like food, housing, medical care, and heating Not very hard [facility] Do you feel stress - tense, restless, nervous, or anxious, or unable to sleep at night because your mind is troubled all the time - these days [OSQ] To some extent [facility] Sexual Orientation [facility] Start: 1965 Sex Assigned At Female A [facility] NEGATED: Highlighted row Not [facility] Goals Date Patient Goal Desired Activity /State Personal health goal Comment on above: Formatting of this n ote might be different from the original. Evaluation of progress towards goal: Pt plans to discharge home with self care. Functional Status Date Assessment Result Facility Functional observable [facility] Mental Status Date Assessment Result Facility 11-06-2024 Cognitive function Voice/Name [facility] Work Phone: 10-27-2020 Cognitive functi ons [id number] [facility] Clinical Notes 09-29-2020 to 12-15-2024 Telephone Encounter - Josephine Fregosoruff - 12/15/2024 3:08 PM EDTTelephone Encounter - Josephine Amaroff - 12/15/2024 3:08 PM EDT Note Date & Type Note Facility 12-15-2024 Miscellaneous Notes Formattin g of this note might be different from the original. PATIENT HAS CALLED STATING THAT MEDICAL RECORDS DID NOT SEND HER THE CORRECT FORMS. I HAVE INFORMED HER THAT SHE WILL NEED TO CALL AGAIN OR TO CALL HER GUARDIAN BARBARA. I PROVIDED JAZMYN WITH THE NUMBER [phone]. JAZMYN STATES THAT SHE WOULD LIKE TO MAKE A COMPLAINT ABOUT MEDICAL RECORDS AND WHEN I PUT HER ON HOLD TO GET THAT NUMBER SHE HUNG UP. I TRIED TO CALL JAZMYN'S HOME CARE GIVERS BUT TO NO AVAIL. documented in this encounter [facility] 12-15-2024 Telephone encount er Note PATIENT HAS CALLED STATING THAT MEDICAL RECORDS DID NOT SEND HER THE CORRECT FORMS. I HAVE INFORMED HER THAT SHE WILL NEED TO CALL AGAIN OR TO CALL HER GUARDIAN BARBARA. I PROVIDED JAZMYN WITH THE NUMBER [phone]. JAZMYN STATES THAT SHE WOULD LIKE TO MAKE A COMPLAINT ABOUT MEDICAL RECORDS AND WHEN I PUT HER ON HOLD TO GET THAT NUMBER SHE HUNG UP. I TRIED TO CALL [employer]'S HOME CARE GIVERS BUT [facility] NO AVAIL. [facility] 12-02-[address] [facility] 11-12-2024 Hospital Discharge instructions Patient Education 11/11/2024 22:23:16 Treating Affective (Mood) Disorders Treating Affective (Mood) Disorders Affective disorders are disorders of mood. One is depression. Another is bipolar disorder (also called manic depression). They are often treated with medicines and therapy. Talk with your healthcare provider. He or she can tell you more about treatments that can help you. A hospital or mental health clinic can also provide help. Depression and bi-polar disorder significantly impact both the individual and his or her family. Support and resources for family members are important components of successful recoveries and long-term illness management. Treatments for depression Depression is a common mood disorder. It causes a person to feel sad, worthless, helpless, and hopeless. It makes you lose interest in things that used to give pleasure. Treatment includes medicines and talk therapy. Antidepressant medicines change levels of brain chemicals to help a person feel better. Don t stop medications suddenly. Medications usually need to be withdrawn over a period of time to prevent worsening of symptoms or potentially dangerous withdrawal effects. Talk therapy involves speaking with a trained counselor about your thoughts. Most people with depression do best when they use both medicine and talk therapy. In cases where other treatments don t work, a treatment called electroconvulsive therapy or ECT may be suggested. This uses electric impulses to ease depression. There are different types of depression and your treatment options will depend on the type of depression you have. In some cases treatment may be short-term (6 months or less). In other cases medicines may be needed on a long-term basis. Treatments for bipolar disorder People with bipolar disorder have intense mood swings. They move between deep sadness and mmk-na-zjylcpt highs. Bipolar disorder is a serious, complex chronic illness. And just like diabetes or heart disease, requires lifetime management. This condition is treated with medicines such as lithium. It helps even out moods and prevents mood swings. If lithium is not appropriate, a medicine that works in a similar way may be used instead. Don t stop medications suddenly. Medications usually need to be withdrawn over a period of time to prevent worsening of symptoms or potentially dangerous withdrawal effects. Talk therapy can also help. This involves talking to a trained counselor about feelings and relationships, and managing your bipolar illness. He or she can give support during tough times. The sources below can tell you more. They can also give names of clinics near you that offer treatment and free screenings. Depression and Bipolar Support [place] [phone] www.dbsalliance.org International Foundation for Research and Education on Depression www.ifred.org National [place] on Mental Illness (CASEY) 452-981-LTBL (5357) www.casey.org National [place] of Mental Health 304-798-8898 www.nimh.nih.gov National Suicide Prevention Lifeline 813-455-OTNR (0588) www.suicidepreventionlifeline.org This resource is open 24 hours a day, 7 days a week. The counselors speak Stateless and Bahamian. They can provide immediate crisis intervention and information on local resources. It is free and confidential. [phone] [employer]. [address] [place] [address], [place] [address]. All rights reserved. This information is not intended as a substitute for professional medical care. Always follow your healthcare professional's instructions. Follow Up Care 11/11/2024 20:21:59 With:Go to emergency room if symptoms worsen Address:Unknown When:2-4 days With:Follow up with primary care provider Address:Unknown When:2-4 days [facility] 11-11-2024 Note Discharge Instructions Thank you for allowing [facility] to assist you with your healthcare needs. The following is important discharge information regarding your hospital visit. Diagnosis from Today's Visit Encounter for medical screening examination What to Do Next Instructions from Your Care Team No qualifying data available. Post Acute Orders No qualifying data available. You Need to Schedule the Following Appointments Follow Up with Go to emergency room if symptoms worsen When:Within 2-4 days Follow Up with Follow up with primary care provider When:Within 2-4 days Allergies No Known Medication Allergies Medications Please ask your primary doctor or pharmacist before taking any other medication not listed, including over the counter drugs, herbal medications, vitamins and or supplements as they may interact with your home medications. Please take this list to your next doctor s visit. Bring all medications you take, including over the counter medications, herbals and other supplements with you to your doctor s visit. Patients and families are reminded to discard old lists and to update any records with all medication providers or retail pharmacies. Education Materials Treating Affective (Mood) Disorders Affective disorders are disorders of mood. One is depression. Another is bipolar disorder (also called manic depression). They are often treated with medicines and therapy. Talk with your healthcare provider. He or she can tell you more about treatments that can help you. A hospital or mental health clinic can also provide help. Depression and bi-polar disorder significantly impact both the individual and his or her family. Support and resources for family members are important components of successful recoveries and long-term illness management. Treatments for depression Depression is a common mood disorder. It causes a person to feel sad, worthless, helpless, and hopeless. It makes you lose interest in things that used to give pleasure. Treatment includes medicines and talk therapy. Antidepressant medicines change levels of brain chemicals to help a person feel better. Don t stop medications suddenly. Medications usually need to be withdrawn over a period of time to prevent worsening of symptoms or potentially dangerous withdrawal effects. Talk therapy involves speaking with a trained counselor about your thoughts. Most people with depression do best when they use both medicine and talk therapy. In cases where other treatments don t work, a treatment called electroconvulsive therapy or ECT may be suggested. This uses electric impulses to ease depression. There are different types of depression and your treatment options will depend on the type of depression you have. In some cases treatment may be short-term (6 months or less). In other cases medicines may be needed on a long-term basis. Treatments for bipolar disorder People with bipolar disorder have intense mood swings. They move between deep sadness and fak-ka-tjjvbwh highs. Bipolar disorder is a serious, complex chronic illness. And just like diabetes or heart disease, requires lifetime management. This condition is treated with medicines such as lithium. It helps even out moods and prevents mood swings. If lithium is not appropriate, a medicine that works in a similar way may be used instead. Don t stop medications suddenly. Medications usually need to be withdrawn over a period of time to prevent worsening of symptoms or potentially dangerous withdrawal effects. Talk therapy can also help. This involves talking to a trained counselor about feelings and relationships, and managing your bipolar illness. He or she can give support during tough times. The sources below can tell you more. They can also give names of clinics near you that offer treatment and free screenings. Depression and Bipolar Support [place] [phone] www.dbsalliance.org International Foundation for Research and Education on Depression www.ifred.org National [place] on Mental Illness (CASEY) 901-922-GDAA (3512) www.casey.org National [place] of Mental Health 811-207-8402 www.nimh.nih.gov National Suicide Prevention Lifeline 107-112-XPTC (4115) www.suicidepreventionlifeline.org This resource is open 24 hours a day, 7 days a week. The counselors speak Stateless and Bahamian. They can provide immediate crisis intervention and information on local resources. It is free and confidential. 6260-[address] [employer] [place] [address]. All rights reserved. This information is not intended as a substitute for professional medical care. Always follow your healthcare professional's instructions. Additional Information VACCINATE! IT SAVES LIVES! Members of the community who have not yet received the COVID-19 vaccine and would like to receive it can visit one of [facility] vaccine clinics. There are many vaccine clinic locations within the [facility]. For locations and available times, please visit www.gettheshot.coronavirus.[place].gov/. It is important to note that some COVID mobile vaccine clinics are held outdoors and may be canceled in rainy or stormy conditions. To learn more about pediatric vaccinations (ages 5-11), we invite you to visit the [facility] webpage. https://www.[facility].org/pages/2019- Ambjc-Spczhmzpdrk-Vhobvjpphd-Asked-Questio ns.html To learn more about the COVID-19 vaccine, we invite you to visit the CDC website for a list of frequently asked questions. https://www.cdc.gov/coronavirus/2019-ncov/ vaccines/faq.html [employer] Patient Portal Access Instructions: Stay connected with your healthcare team and access your personal medical information anytime with the [employer] Patient Portal. If you would like a full copy of your medical records please contact the [facility] Medical Records Department Saturday through Saturday between 8a.m. and 4:30p.m. Please follow the directions below to access the portal: 1.Access the email account you provided upon registration to the hospital.2.Look for an invitation email from [facility].3.Open the email and access the invitation link: Accept Invitation to [employer]4.Fill in the required jara to create your account. Sign into www.[employer] with your username and password that you created in the above steps to stay up to date. You can then view a summary of results, a summary of your visits, and the ability to download your summaries to your computer or send the information securely to a physician. Remember that your healthcare information is confidential, so carefully consider who you will allow to register on the [employer] Patient Portal for access to your information. You can also access the [employer] Patient Portal on the [place] kelly. Simply click on Health Records under Health Data and then click on the [employer] logo. HOW TO SAFELY DISPOSE OF PRESCRIPTION MEDICATIONS Please use one of the following methods to safely dispose of your unused medications. 1.Use a drug disposal kit: the drug disposal pouch allows you to safely discard your old and unused drugs. Ask your nurse to give you one when you are discharged.2.Visit a local take-back location: Many local pharmacies and police departments have programs that collect old and unwanted prescription drugs. Call your local pharmacy or go to http://bit.[employer]/9Y0Zy1d to find one close to you.3.Make use of household items: Use cat litter or old coffee grounds to dispose medications if other options are not available. Mix your drugs with these household products, seal them in an airtight container and throw it into the garbage. Call [facility]: [phone] to be sure your drugs can be disposed of in this way. Some medicines may require a different approach.4.Never flush your medications down the toilet. IF YOU HAVE BEEN PRESCRIBED AN OPIOIDS FOR PAIN If you have been prescribed an opioid (such as hydrocodone, oxycodone or morphine), it is critical to understand the possible side effects and risks of opioid pain medications. Even when taken as directed, opioids can have several side effects including: Tolerance, meaning you might need to take more of a medication for the same pain relief. Nausea, vomiting and/or constipation. Sleepiness, dizziness, dry mouth, confusion, depression or itching. Physical dependence, meaning you have withdrawal symptoms when a medication is stopped ? this can develop within a few days. KNOW YOUR RESPONSIBILITIES It is important to know exactly how much and how often to take the opioid pain medications you are prescribed. Never take opioids in higher amounts or more often than prescribed. Do not combine opioids with alcohol or other drugs that cause drowsiness, such as benzodiazepines, also known as benzos, including diazepam and alprazolam, muscle relaxants or sleep aids. Never sell or share prescription opioids. This is illegal. Store opioids in a secure place and out of reach of others (including children, family, friends and visitors). The last page(s) of this document has been signed and retained as a CHART COPY Signatures Patient Education Materials Treating Affective (Mood) Disorders Medication Leaflets My discharge plan and instructions have been reviewed and explained to me and INATASHA SHEILAH understand my current condition and have read and understand these discharge instructions. I have received a written copy of the plan/instructions. If I have questions, I am aware that I should contact my doctor. Patient/Unit Nurse Signature: Date/Time: Relationship to Patient: Witness Name/Signature: __ Date/Time: [facility] 11-09-2024 Radiology Diagnostic study note [facility] Imaging Services [address] [place] [id number] Lumbar Spine 2 or 3 Views MR#: [id number] Acct: [id number] Name: KRISTOFER MANZANARESH Rep #: [id number] : 1965 F 59 From: Berta Gonzalez MD PCP: Ragini Lentz MD Status: REG CLI Study:Lumbar Spine 2 or 3 Views Date of Exam: 11/09/24 Exam# [id number] Ordering Dr: Sammy Polanco MD PROCEDURE: LUMBAR SPINE 2 OR 3 VIEWS 11/09/2024 REASON FOR EXAM: SPONDYLOSIS WITHOUT MYELOPATHY OR RADICULOPATHY, LUMBAR REGION TECHNIQUE: 2 view(s) of the lumbar spine COMPARISON: None FINDINGS: Vertebral body heights and alignment are maintained. Multilevel endplate osteophyte formation with disc space narrowing and facet arthrosis, worst at L4-5 and L5-S1. Aortic atherosclerosis. Nonobstructive appearance of the visualized bowel gas. RAD/Lumbar Spine 2 or 3 Views IMPRESSION: Moderate multilevel degenerative changes of the lumbar spine, worst at L4-5 and L5-S1. Reading Location: [facility] CC: Ragini Lentz MD; Dr. Denilson Polanco MD ~ Special Events Assistant: Signed [facility] 11-09-2024 Radiology Diagnostic study note [facility] Imaging Services [address] [place], [place] [address] Knee 1 or 2 Views MR#: [id number] Acct: [id number] Name: BHARAT MANZANARES Rep #: [id number] : 1965 F 59 From: Berta Gonzalez MD PCP: Ragini Lentz MD Status: REG CLI Study:Knee 1 or 2 Views Date of Exam: Exam# [id number] Ordering Dr: Sammy Polanco MD PROCEDURE: KNEE 1 OR 2 VIEWS 11/09/2024 REASON FOR EXAM: OSTEOARTHRITIS TECHNIQUE: 2 views of each knee with weightbearing COMPARISON: None FINDINGS: No fracture or traumatic malalignment. Moderate to severe narrowing in the medial and patellofemoral compartments of the right knee, and mild in the left. Tricompartmental osteophyte formation, right knee greater than left. Trace right knee joint effusion. No significant left knee joint effusion. Soft tissues are unremarkable bilaterally. RAD/Knee 1 or 2 Views IMPRESSION: 1. Moderate to severe right and mild left knee osteoarthritis. 2. Trace right knee joint effusion. Reading Location: [facility] CC: Ragini Lentz MD; Dr. Denilson Polanco MD ~ Special Events Assistant: Signed [facility] 11-09-2024 Radiology Diagnostic study note [facility] Imaging Services [address] [place] [id number] Knee 1 or 2 Views MR#: [id number] Acct: [id number] Name: HBARAT MANZANARES Rep #: [id number] : 1965 F 59 From: Berta Gonzalez MD PCP: Ragini Lentz MD Status: REG CLI Study:Knee 1 or 2 Views Date of Exam: Exam# [id number] Ordering Dr: Sammy Polanco MD PROCEDURE: KNEE 1 OR 2 VIEWS 11/09/2024 REASON FOR EXAM: OSTEOARTHRITIS TECHNIQUE: 2 views of each knee with weightbearing COMPARISON: None FINDINGS: No fracture or traumatic malalignment. Moderate to severe narrowing in the medial and patellofemoral compartments of the right knee, and mild in the left. Tricompartmental osteophyte formation, right knee greater than left. Trace right knee joint effusion. No significant left knee joint effusion. Soft tissues are unremarkable bilaterally. RAD/Knee 1 or 2 Views IMPRESSION: 1. Moderate to severe right and mild left knee osteoarthritis. 2. Trace right knee joint effusion. Reading Location: [facility] CC: Ragini Lentz MD; Dr. Denilson Polanco MD ~ Special Events Assistant: Signed [facility] 11-06-2024 Consult note Note Date/Time November 06, 2024 7:54a m [facility] Medical Records Department [address] [place] [address] Pre-Anesthesia Evaluation 11/06/24 0741 MR#: [id number] Acct: [id number] Name: BHARAT MANZANARES Rep #:[id number] : 1965 59 From: Yael Marvin CRNA PCP: Ragini Lentz MD Status:REG SDC Y Race: C Location: [place] [address] ASA Classification* ASA Classification ASA Classification: 3 Assessment & Plan Anesthesia* Anesthesia Assessment Anesthesia Assessment: Discussed sedation and/or anesthesia options, risks, benefits, and alternatives with patient/parents/legal guardian/POA. Questions invited. The patient/parents/legal guardian/POA seems to understand and agrees to proceedwith anesthesia plan. Reviewed the physical assessment, medical history, allergy history and patient home medications list prior to surgery/procedure/anesthetic and documented any changes. Performed airway and anesthesia risk assessments. 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 When Was Last Pacemaker Check QUESTION #4 FULL TEXT: You/Your Family Experience fever (hyperthermia) with Anesthesia Any additional information?: No Last Oral Intake Last Oral intake: Last Oral Intake NPO since 00:00 11/06/24 07:19 Meds taken in AM with sips of No 11/06/24 07:19 water? Meds patient instructed to take am of surgery PONV PONV - hand engraver: PONV - hand engraver Female Yes 11/06/24 07:24 HX of Motion Sickness No 11/06/24 07:24 HX of N/V After Surgery No 11/06/24 07:24 Non-Smoker Yes 11/06/24 07:24 Duration of Surgery greater No 11/06/24 07:24 than 60 minutes Number of Risk Factors 2 11/06/24 07:24 PONV Score Moderate Risk 11/06/24 07:24 Any additional information?: No Height & Weight Height & Weight: Anesthesia: Height & Weight Height 5 ft 6 in 11/06/24 07:19 Weight: 132.449 kg 11/06/24 07:19 Body Mass Index (BMI) 47.1 11/06/24 07:19 Respiratory Assessment Respiratory Assessment - hand engraver: Respiratory Tract Infection Hx - hand engraver Hx Respiratory Tract Infection No 11/06/24 07:24 Any additional information?: No STOP Sleep Apnea STOP Sleep Apnea - hand engraver: STOP Sleep Apnea - hand engraver Hx Hypertension No 11/06/24 07:24 Hx Sleep Apnea No 11/06/24 07:24 CPAP BIPAP Do you snore loudly (louder No 11/06/24 07:24 than talking or can be heard Do you often feel tired/ No 11/06/24 07:24 fatigued/ sleepy during daytime? Has anyone observed you stop No 11/06/24 07:24 breathing during sleep? STOP Results Negative 11/06/24 07:24 QUESTION #5 FULL TEXT : Do you snore loudly (louder than talking or can be heard through closed doors)? Any additional information?: No Tobacco Use History Tobacco Use History - hand engraver: Tobacco Use History - hand engraver Tobacco Use Smoking Status Former smoker 11/06/24 07:24 Hx Tobacco Use No 11/06/24 07:24 Years Smoking Packs Smoked per Day Smoking Cessation Date was No - quit smoking greater 11/06/24 07:24 within the last 15 years than 15 years ago Hx Smoking Cessation Date Hx Smoking Cessation Counseling Any additional information?: No Hematologic Medial History Hematologic Hx - hand engraver: Hematologic Medical Hx - support services coordinator Hx of Blood Transfusion No 11/06/24 07:24 Hx of Transfusion in last 3 No 11/06/24 07:24 Months Date of Last Transfusion (if within last 3 months) Ever experience any problems No 11/06/24 07:24 with transfusion(s)? Specify any problems Hx of Preganancy in last 3 No 11/06/24 07:24 Months Nurse Filling Out Transfusion DPRIEST 11/06/24 07:24 & Questions: Date: 11/06/24 11/06/24 07:24 Time: 07:11/06/24 07:24 Patient unable to answer at this time (ie. confused, unrespo Any additional information?: Yes Hx of Blood Transfusion: Yes Hx of Transfusion in last 3 Months: No Date of Last Transfusion (if within last 3 months): early 2023 @ [facility] Ever experience any problems with transfusion(s)?: No /Reproduction History /Reproductive History - hand engraver: /Reproductive Hx- hand engraver Hx Now No 11/06/24 07:24 Gestational Age (in weeks): EDC: Hx Hx Para Hx Section SAB No 11/06/24 07:24 Any additional information?: No Active Medications Active Medications: Current Medications Generic Name Dose Route Start Last Admin Trade Name Aaron PRN Reason Stop Dose Admin Lactated Ringer's 1,000 mls @ 15 mls/hr 11/06/24 06:45 11/06/24 07:30 IV 15 mls/hr .Q48H TOM Administration PFSH Medical History Overactive bladder GERD (gastroesophageal reflux disease) Hypothyroidism Schizophrenia HTN (hypertension) Polyarthritis Hyperlipidemia Dysphagia Heart failure Diabetes COPD (chronic obstructive pulmonary disease) Depression Anxiety Cerebral palsy Home Medications ?Medication ?Instructions ?Recorded ?Last Taken ?Type apixaban 2.5 mg tablet 2.5 mg PO BID 10/15/24 Unkno wn History cetirizine 10 mg capsule (Zyrtec) 10 mg PO QDAY Unknown History dapagliflozin propanediol 10 mg 10 mg PO QAM 10/15/24 Unknown History tablet dulaglutide 1.5 mg/0.5 mL 1.5 mg subcut QWEEK 10/15/24 Unknown History subcutaneous pen injector (Trulicity) dulaglutide 3 mg/0.5 mL 3 mg subcut QWEEK 10/15/24 U nknown History subcutaneous pen injector (Trulicity) famotidine 20 mg tablet 20 mg PO QDAY 10/15/24 Unkno wn History fluconazole 100 mg tablet 150 mg PO QDAY 10/15/24 Unkn own History (Diflucan) fluticasone propionate 50 1 spray intranasal QDAY 02/01 Unknown History mcg/actuation nasal spray,suspension (Flonase Allergy Relief) furosemide 20 mg tablet (Lasix) 20 mg PO QAM 10/15/24 Unknown History gabapentin 300 mg capsule 300 mg PO TID 10/15/24 Unkno wn History insulin glargine 100 unit/mL (3 18 unit subcut QPM 02/01 Unknown History mL) subcutaneous pen (Lantus Solostar U-100 Insulin) insulin glargine 100 unit/mL 24 unit subcut QAM Unknown History subcutaneous solution (Lantus U-100 Insulin) insulin lispro 100 unit/mL 1 sliding scale dose subcut 10/15/24 Unknown History subcutaneous pen (Humalog KwikPen USEASDIRECTD (U-100) Insulin) levothyroxine 137 mcg capsule 137 mcg PO QDAY 10/15/24 Unknown History mirabegron 50 mg tablet,extended 50 mg PO QDAY 5 Unknown History release 24 hr (Myrbetriq) topiramate 25 mg tablet (Topamax) 25 mg PO QDAY Unknown History ubrogepant 100 mg tablet 100 mg PO ONCE 10/15/24 Unkn own History acetaminophen 325 mg capsule 650 mg PO Q4H PRN fever o r pain 11/06/24 Unknown History cephalexin 500 mg capsule 500 mg PO TID 11/06/24 Unkno wn History cholecalciferol (vitamin D3) 125 5,000 unit PO DAILY 0 11/06/24 Unknown History mcg (5,000 unit) tablet (Vitamin D3) diclofenac sodium 1 % topical gel 4.5 inch topical BID 11/06/24 Unknown History nystatin 100,000 unit/gram topical 1 applic topical DA JEN 11/06/24 Unknown History powder (Nystop) pregabalin 75 mg capsule (Lyrica) 75 mg PO QHS 5 Unknown History zolmitriptan 5 mg disintegrating 5 mg PO Q4H PRN PRN m igraine 11/06/24 Unknown History tablet headache Allergy/AdvReac Type Severity Reaction Status Date / Time No Known Allergies Allergy Unverified 10/15/24 13:34 Social History Smoking Status: Former smoker Review of Systems (Anesthesia) ROS Narrative System reviewed and no additional complaints, except as documented. 11/06/24 0755 <Electronically signed by Yael christianson CRNA> Date _ Yael Marvin CRNA Cosigner Signature: Date CC: ~ Signed [facility] Work Phone: [phone]) 642-543705-30-2025 Procedure note [facility] Medical Records Department [address] [place] [id number] Colonoscopy Report MR#: [id number] Acct: [id number] Name: BHARAT MANZANARES Rep #:[id number] : 1965 59 From: Johana Varela MD PCP: Ragini Lentz MD Status:[facility] Patient Name: Bharat Manzanares Procedure Date: 11/06/2024 7:39 AM Date of : 1965 Age: 59 Procedure: Colonoscopy Indications: Chronic diarrhea Providers: Johana Varela MD Medicines: Monitored Anesthesia Care Patient Profile: This is a 59 year old female. Refer to note in patient chart for documentation of history and physical. Last Colonoscopy: none. The patient's first colonoscopy is today. Complications: No immediate complications. Estimated blood loss: Minimal. Procedure: Pre-Anesthesia Assessment: - Prior to the procedure, a History and Physical was performed, and patient medications and allergies were reviewed. The patient's tolerance of previous anesthesia was also reviewed. The risks and benefits of the procedure and the sedation options and risks were discussed with the patient. All questions were answered, and informed consent was obtained. Prior Anticoagulants: The patient has taken Eliquis (apixaban), last dose was 3 days prior to procedure. ASA Grade Assessment: III - A patient with severe systemic disease. After reviewing the risks and benefits, the patient was deemed in satisfactory condition to undergo the procedure. After I obtained informed consent, the scope was passed under direct vision. Throughout the procedure, the patient's blood pressure, pulse, and oxygen saturations were monitored continuously. The colonoscope was introduced through the anus and advanced to the cecum, identified by appendiceal orifice and ileocecal valve. The ileocecal valve, appendiceal orifice, and rectum were photographed. The entire colon was well visualized. The colonoscopy was performed without difficulty. The patient tolerated the procedure well. The quality of the bowel preparation was adequate. Moderate Sedation: See the other procedure note for documentation of moderate sedation with intraservice time. Scope In: 8:28:58 AM Scope Withdrawal Time 0 hours 26 minutes 35 seconds Scope Out: 9:07:04 AM Total Procedure Duration Time 0 hours 38 minutes 6 seconds Findings: The perianal and digital rectal examinations were normal. Multiple small-mouthed diverticula were found in the sigmoid colon. Internal hemorrhoids were found during retroflexion. The hemorrhoids were mild. A 5 mm polyp was found in the cecum. The polyp was semi-pedunculated. The polyp was removed with a hot snare. Resection and retrieval were complete. Verification of patient identification for the specimen was done by the nurse using the patient's name, date and medical record number. Estimated blood loss was minimal. Three semi-pedunculated polyps were found in the sigmoid colon. The polyps were 3 to 4 mm in size. These polyps were removed with a hot snare. Resection and retrieval were complete. Verification of patient identification for the specimen was done by the nurse using the patient's name, date and medical record number. Estimated blood loss was minimal. The exam was otherwise without abnormality on direct and retroflexion views. Impression: - Diverticulosis in the sigmoid colon. - Internal hemorrhoids. - One 5 mm polyp in the cecum, removed with a hot snare. Resected and retrieved. - Three 3 to 4 mm polyps in the sigmoid colon, removed with a hot snare. Resected and retrieved. - The examination was otherwise normal on direct and retroflexion views. Recommendation: - Discharge patient to home (ambulatory). - High fiber diet. - Await pathology results. - Repeat colonoscopy in 5 years for surveillance. - Return to my office PRN. - Continue present medications. Procedure Code(s): --- Professional --- 50244, Colonoscopy, flexible; with removal of tumor(s), polyp(s), or other lesion(s) by snare technique Diagnosis Code(s): --- Professional --- K64.8, Other hemorrhoids D12.0, Benign neoplasm of cecum D12.5, Benign neoplasm of sigmoid colon K57.30, Diverticulosis of large intestine without perforation or abscess without bleeding K52.9, Noninfective gastroenteritis and colitis, unspecified CPT copyright 2021 [employer]. All rights reserved. The codes documented in this report are preliminary and upon green pipefitter review may be revised to meet current compliance requirements. Johana Varela MD 11/06/2024 9:30:39 AM This report has been signed electronically. Number of Addenda: 0 Note Initiated On: 11/06/2024 7:39 AM 11/06/24 0930 Date _ Johana Varela MD Cosigner Signature: Date (if indicated) CC: Ragini Lentz MD; Dr. Johana Varela MD ~ Date Dictated: 11/06/24 0739 Date Transcribed: Special Events Assistant: CRYSTAL Signed [facility]05-30-2025 Consult note [facility] Medical Records Department [address] [place] [address] Anesthesia Postop Eval I 11/06/24 0921 MR#: [id number] Acct: [id number] Name: BHARAT MANZANARES Rep #:[id number] : 1965 59 From: Yael Marvin VOLCANOLOGY TEACHER PCP: Ragini Lentz MD Status:[facility] Y Race: C Location: [place] [address] Anesthesia: Postop Eval I Current Vital Signs Temperature: 97.1 F Pulse Rate: 73 Blood Pressure: 88/46 Respiratory Rate: 18 Pulse Ox: 93 Assessment Airway patent: Yes Spontaneous unlabored respirations: Yes nausea: No Vomiting: No Anesthesia Complication: No Fluid Hydration Crystalloid volume administer (ml): 300 Total IV fluid infused: 300 Progress Note Anesthesia document: Postop Eval 1 completed: Yes 11/06/24921 a VOLCANOLOGY TEACHER> Date _ Yael Marvin 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 Signature: Date CC: ~ Signed [facility]05-30-2025 History and physical note [facility] Medical Records Department [address] [place] [address] History & Physical Exam 11/06/24 0805 MR#: [id number] Acct: [id number] Name: BHARAT MANZANARES Rep #:[id number] : 1965 59 From: Johana Varela MD PCP: Ragini Lentz MD Status:[facility] Location: [place] [address] HPI - General General Date of Admission: 11/06/24 Date of Service: 11/06/24 Chief Complaint: diarrhea HPI Narrative The patient is a 59-year-old female who is being seen today for colonoscopy. She states that she has been having diarrhea for many many years. She resides in a local [facility]. The treating physician has advised her to get a colonoscopy. She believes that his sister had colon polyps. No family history of colon cancer. She denies any blood or tarry stools [facility] Medical History Overactive bladder GERD (gastroesophageal reflux disease) Hypothyroidism Schizophrenia HTN (hypertension) Polyarthritis Hyperlipidemia Dysphagia Heart failure Diabetes COPD (chronic obstructive pulmonary disease) Depression Anxiety Cerebral palsy Home Medications ?Medication ?Instructions ?Recorded ?Last Taken ?Type apixaban 2.5 mg tablet 2.5 mg PO BID 10/15/24 Unkno wn History cetirizine 10 mg capsule (Zyrtec) 10 mg PO QDAY Unknown History dapagliflozin propanediol 10 mg 10 mg PO QAM 10/15/24 Unknown History tablet dulaglutide 1.5 mg/0.5 mL 1.5 mg subcut QWEEK 10/15/24 Unknown History subcutaneous pen injector (Trulicity) dulaglutide 3 mg/0.5 mL 3 mg subcut QWEEK 10/15/24 U nknown History subcutaneous pen injector (Trulicity) famotidine 20 mg tablet 20 mg PO QDAY 10/15/24 Unkno wn History fluconazole 100 mg tablet 150 mg PO QDAY 10/15/24 Unkn own History (Diflucan) fluticasone propionate 50 1 spray intranasal QDAY 02/01 Unknown History mcg/actuation nasal spray,suspension (Flonase Allergy Relief) furosemide 20 mg tablet (Lasix) 20 mg PO QAM 10/15/24 Unknown History gabapentin 300 mg capsule 300 mg PO TID 10/15/24 Unkno wn History insulin glargine 100 unit/mL (3 18 unit subcut QPM 02/01 Unknown History mL) subcutaneous pen (Lantus Solostar U-100 Insulin) insulin glargine 100 unit/mL 24 unit subcut QAM Unknown History subcutaneous solution (Lantus U-100 Insulin) insulin lispro 100 unit/mL 1 sliding scale dose subcut 10/15/24 Unknown History subcutaneous pen (Humalog KwikPen USEASDIRECTD (U-100) Insulin) levothyroxine 137 mcg capsule 137 mcg PO QDAY 10/15/24 Unknown History mirabegron 50 mg tablet,extended 50 mg PO QDAY 5 Unknown History release 24 hr (Myrbetriq) topiramate 25 mg tablet (Topamax) 25 mg PO QDAY Unknown History ubrogepant 100 mg tablet 100 mg PO ONCE 10/15/24 Unkn own History acetaminophen 325 mg capsule 650 mg PO Q4H PRN fever o r pain 11/06/24 Unknown History cephalexin 500 mg capsule 500 mg PO TID 11/06/24 Unkno wn History cholecalciferol (vitamin D3) 125 5,000 unit PO DAILY 0 11/06/24 Unknown History mcg (5,000 unit) tablet (Vitamin D3) diclofenac sodium 1 % topical gel 4.5 inch topical BID 11/06/24 Unknown History nystatin 100,000 unit/gram topical 1 applic topical DA JEN 11/06/24 Unknown History powder (Nystop) pregabalin 75 mg capsule (Lyrica) 75 mg PO QHS 5 Unknown History zolmitriptan 5 mg disintegrating 5 mg PO Q4H PRN PRN m igraine 11/06/24 Unknown History tablet headache Allergy/AdvReac Type Severity Reaction Status Date / Time No Known Allergies Allergy Unverified 10/15/24 13:34 Social History Smoking Status: Former smoker Vital Signs Vital Signs Vital Signs: 11/06/24 07:19 11/06/24 07:19 11/06/24 07:54 Temperature 98.0 F 98.0 F Temperature Source Temporal Pulse Rate 77 77 Respiratory Rate 18 18 Respiratory Pattern Normal Blood Pressure 119/72 119/72 Blood Pressure Mean 87 Blood Pressure Source Monitor Blood Pressure Position Sitting Blood Pressure Location Right Forearm Pulse Ox 95 95 Oxygen Delivery Method Room Air Room Air Weight Weight: 292 lb Body Mass Index (BMI) 47.1 Physical Exam Const alert, oriented x3 and no apparent distress Results Lab / Micro Data Labs: Laboratory Results - last 24 hr 11/06/24 07:00: POC Glucose 176 H 11/06/24 0805 Cosigner Signature (if applicable): CC: Ragini Lentz MD; Dr. Johana Varela MD~ Signed ADDENDUM by Dr. Johana Varela MD on 11/06/24 at 0807 Addendum colonoscopy today 11/06/24 0807 Cosigner Signature (if applicable): cc: Ragini Lentz MD; Dr. Johana Varela MD ~* Signed [facility]05-30-2025 [facility] Medical Records Department [address] [place] [address] History Physical Exam 11/06/24804 MR#: [id number] Acct: [id number] Name: BHARAT MANZANARES Rep #: [id number] : 1965 59 From: Johana Varela MD PCP: Ragini Lentz MD Status:[facility] Location: [place] [address] HPI - General General Date of Admission: 11/06/24 Date of Service: 11/06/24 Chief Complaint: diarrhea HPI Narrative The patient is a 59-year-old female who is being seen today for colonoscopy. She states that she has been having diarrhea for many many years. She resides in a local [facility]. The treating physician has advised her to get a colonoscopy. She believes that his sister had colon polyps. No family history of colon cancer. She denies any blood or tarry stools [facility] Medical History Overactive bladder GERD (gastroesophageal reflux disease) Hypothyroidism Schizophrenia HTN (hypertension) Polyarthritis Hyperlipidemia Dysphagia Heart failure Diabetes COPD (chronic obstructive pulmonary disease) Depression Anxiety Cerebral palsy Home Medications ???Medication ???Instructions ???Recorded ???Last Taken ???Type apixaban 2.5 mg tablet 2.5 mg PO BID 10/15/24 Unknown His tory cetirizine 10 mg capsule (Zyrtec) 10 mg PO QDAY 10/15/24 Unknown Hi story dapagliflozin propanediol 10 mg 10 mg PO QAM 10/15/24 Unknown Hist ory tablet dulaglutide 1.5 mg/0.5 mL 1.5 mg subcut QWEEK 10/15/24 Unkno wn History subcutaneous pen injector (Trulicity) dulaglutide 3 mg/0.5 mL 3 mg subcut QWEEK 10/15/24 Unknown History subcutaneous pen injector (Trulicity) famotidine 20 mg tablet 20 mg PO QDAY 10/15/24 Unknown His tory fluconazole 100 mg tablet 150 mg PO QDAY 10/15/24 Unknown Hi story (Diflucan) fluticasone propionate 50 1 spray intranasal QDAY 10/15/24 U nknown History mcg/actuation nasal spray,suspension (Flonase Allergy Relief) furosemide 20 mg tablet (Lasix) 20 mg PO QAM 10/15/24 Unknown Hist ory gabapentin 300 mg capsule 300 mg PO TID 10/15/24 Unknown His tory insulin glargine 100 unit/mL (3 18 unit subcut QPM 10/15/24 Unknow n History mL) subcutaneous pen (Lantus Solostar U-100 Insulin) insulin glargine 100 unit/mL 24 unit subcut QAM 10/15/24 Unknow n History subcutaneous solution (Lantus U-100 Insulin) insulin lispro 100 unit/mL 1 sliding scale dose subcut Unknown History subcutaneous pen (Humalog KwikPen USEASDIRECTD (U-100) Insulin) levothyroxine 137 mcg capsule 137 mcg PO QDAY 10/15/24 Unknown H istory mirabegron 50 mg tablet,extended 50 mg PO QDAY 10/15/24 Unknown His tory release 24 hr (Myrbetriq) topiramate 25 mg tablet (Topamax) 25 mg PO QDAY 10/15/24 Unknown Hi story ubrogepant 100 mg tablet 100 mg PO ONCE 10/15/24 Unknown Hi story acetaminophen 325 mg capsule 650 mg PO Q4H PRN fever or pain Unknown History cephalexin 500 mg capsule 500 mg PO TID 11/06/24 Unknown His tory cholecalciferol (vitamin D3) 125 5,000 unit PO DAILY 11/06/24 Unkno wn History mcg (5,000 unit) tablet (Vitamin D3) diclofenac sodium 1 % topical gel 4.5 inch topical BID 11/06/24 Unk nown History nystatin 100,000 unit/gram topical 1 applic topical DAILY 11/06/24 Unknown History powder (Nystop) pregabalin 75 mg capsule (Lyrica) 75 mg PO QHS 11/06/24 Unknown His tory zolmitriptan 5 mg disintegrating 5 mg PO Q4H PRN PRN migraine 05/30 /25 Unknown History tablet headache Allergy/AdvReac Type Severity Reaction Status Date / Time No Known Allergies Allergy Unverified 10/15/24 13:34 Social History Smoking Status: Former smoker Vital Signs Vital Signs Vital Signs: 11/06/24 07:19 11/06/24 07:19 11/06/24 07:54 Temperature 98.0 F 98.0 F Temperature Source Temporal Pulse Rate 77 77 Respiratory Rate 18 18 Respiratory Pattern Normal Blood Pressure 119/72 119/72 Blood Pressure Mean 87 Blood Pressure Source Monitor Blood Pressure Position Sitting Blood Pressure Location Right Forearm Pulse Ox 95 95 Oxygen Delivery Method Room Air Room Air Weight Weight: 292 lb Body Mass Index (BMI) 47.1 Physical Exam Const alert, oriented x3 and no apparent distress Results Lab / Micro Data Labs: Laboratory Results - last 24 hr 11/06/24 07:00: POC Glucose 176 H 11/06/24 0805 Cosigner Signature (if applicable): CC: Ragini Lentz MD; Dr. Johana Varela MD Signed ADDENDUM by Dr. Johana Varela MD on 11/06/24 at 0807 Addendum colonoscopy today 11/06/24 0807 Cosigner Signature (if applicable): cc: Namita (more content not included)...[facility]05-30-2025 Consult note [facility] Medical Records Department [address] [place] [address] Pre-Anesthesia Evaluation 11/06/24 0741 MR#: [id number] Acct: [id number] Name: BHARAT MANZANARES Rep #:[id number] : 1965 59 From: Yael Marvin CRNA PCP: Ragini Lentz MD Status:REG SDC Y Race: C Location: [place] [address] ASA Classification* ASA Classification ASA Classification: 3 Assessment & Plan Anesthesia* Anesthesia Assessment Anesthesia Assessment: Discussed sedation and/or anesthesia options, risks, benefits, and alternatives with patient/parents/legal guardian/POA. Questions invited. The patient/parents/legal guardian/POA seems to understand and agrees to proceedwith anesthesia plan. Reviewed the physical assessment, medical history, allergy history and patient home medications list prior to surgery/procedure/anesthetic and documented any changes. Performed airway and anesthesia risk assessments. 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 When Was Last Pacemaker Check QUESTION #4 FULL TEXT: You/Your Family Experience fever (hyperthermia) with Anesthesia Any additional information?: No Last Oral Intake Last Oral intake: Last Oral Intake NPO since 00:00 11/06/24 07:19 Meds taken in AM with sips of No 11/06/24 07:19 water? Meds patient instructed to take am of surgery PONV PONV - hand engraver: PONV - hand engraver Female Yes 11/06/24 07:24 HX of Motion Sickness No 11/06/24 07:24 HX of N/V After Surgery No 11/06/24 07:24 Non-Smoker Yes 11/06/24 07:24 Duration of Surgery greater No 11/06/24 07:24 than 60 minutes Number of Risk Factors 2 11/06/24 07:24 PONV Score Moderate Risk 11/06/24 07:24 Any additional information?: No Height & Weight Height & Weight: Anesthesia: Height & Weight Height 5 ft 6 in 11/06/24 07:19 Weight: 132.449 kg 11/06/24 07:19 Body Mass Index (BMI) 47.1 11/06/24 07:19 Respiratory Assessment Respiratory Assessment - hand engraver: Respiratory Tract Infection Hx - hand engraver Hx Respiratory Tract Infection No 11/06/24 07:24 Any additional information?: No STOP Sleep Apnea STOP Sleep Apnea - hand engraver: STOP Sleep Apnea - hand engraver Hx Hypertension No 11/06/24 07:24 Hx Sleep Apnea No 11/06/24 07:24 CPAP BIPAP Do you snore loudly (louder No 11/06/24 07:24 than talking or can be heard Do you often feel tired/ No 11/06/24 07:24 fatigued/ sleepy during daytime? Has anyone observed you stop No 11/06/24 07:24 breathing during sleep? STOP Results Negative 11/06/24 07:24 QUESTION #5 FULL TEXT : Do you snore loudly (louder than talking or can be heard through closeddoors)? Any additional information?: No Tobacco Use History Tobacco Use History - hand engraver: Tobacco Use History - hand engraver Tobacco Use Smoking Status Former smoker 11/06/24 07:24 Hx Tobacco Use No 11/06/24 07:24 Years Smoking Packs Smoked per Day Smoking Cessation Date was No - quit smoking greater 11/06/24 07:24 within the last 15 years than 15 years ago Hx Smoking Cessation Date Hx Smoking Cessation Counseling Any additional information?: No Hematologic Medial History Hematologic Hx - hand engraver: Hematologic Medical Hx - support services coordinator Hx of Blood Transfusion No 11/06/24 07:24 Hx of Transfusion in last 3 No 11/06/24 07:24 Months Date of Last Transfusion (if within last 3 months) Ever experience any problems No 11/06/24 07:24 with transfusion(s)? Specify any problems Hx of Preganancy in last 3 No 11/06/24 07:24 Months Nurse Filling Out Transfusion DPRIEST 11/06/24 07:24 & Questions: Date: 11/06/24 11/06/24 07:24 Time: :11/06/24 07:24 Patient unable to answer at this time (ie. confused, unrespo Any additional information?: Yes Hx of Blood Transfusion: Yes Hx of Transfusion in last 3 Months: No Date of Last Transfusion (if within last 3 months): early 2023 @ [facility] Ever experience any problems with transfusion(s)?: No /Reproduction History /Reproductive History - hand engraver: /Reproductive Hx- hand engraver Hx Now No 11/06/24 07:24 Gestational Age (in weeks): EDC: Hx Hx Para Hx Section SAB No 11/06/24 07:24 Any additional information?: No Active Medications Active Medications: Current Medications Generic Name Dose Route Start Last Admin Trade Name Freq PRN Reason Stop Dose Admin Lactated Ringer's 1,000 mls @ 15 mls/hr 11/06/24 06:45 11/06/24 07:30 IV 15 mls/hr .Q48H TOM Administration PFSH Medical History Overactive bladder GERD (gastroesophageal reflux disease) Hypothyroidism Schizophrenia HTN (hypertension) Polyarthritis Hyperlipidemia Dysphagia Heart failure Diabetes COPD (chronic obstructive pulmonary disease) Depression Anxiety Cerebral palsy Home Medications ?Medication ?Instructions ?Recorded ?Last Taken ?Type apixaban 2.5 mg tablet 2.5 mg PO BID 10/15/24 Unkno wn History cetirizine 10 mg capsule (Zyrtec) 10 mg PO QDAY Unknown History dapagliflozin propanediol 10 mg 10 mg PO QAM 10/15/24 Unknown History tablet dulaglutide 1.5 mg/0.5 mL 1.5 mg subcut QWEEK 10/15/24 Unknown History subcutaneous pen injector (Trulicity) dulaglutide 3 mg/0.5 mL 3 mg subcut QWEEK 10/15/24 U nknown History subcutaneous pen injector (Trulicity) famotidine 20 mg tablet 20 mg PO QDAY 10/15/24 Unkno wn History fluconazole 100 mg tablet 150 mg PO QDAY 10/15/24 Unkn own History (Diflucan) fluticasone propionate 50 1 spray intranasal QDAY 02/01 Unknown History mcg/actuation nasal spray,suspension (Flonase Allergy Relief) furosemide 20 mg tablet (Lasix) 20 mg PO QAM 10/15/24 Unknown History gabapentin 300 mg capsule 300 mg PO TID 10/15/24 Unkno wn History insulin glargine 100 unit/mL (3 18 unit subcut QPM 02/01 Unknown History mL) subcutaneous pen (Lantus Solostar U-100 Insulin) insulin glargine 100 unit/mL 24 unit subcut QAM Unknown History subcutaneous solution (Lantus U-100 Insulin) insulin lispro 100 unit/mL 1 sliding scale dose subcut 10/15/24 Unknown History subcutaneous pen (Humalog KwikPen USEASDIRECTD (U-100) Insulin) levothyroxine 137 mcg capsule 137 mcg PO QDAY 10/15/24 Unknown History mirabegron 50 mg tablet,extended 50 mg PO QDAY 5 Unknown History release 24 hr (Myrbetriq) topiramate 25 mg tablet (Topamax) 25 mg PO QDAY Unknown History ubrogepant 100 mg tablet 100 mg PO ONCE 10/15/24 Unkn own History acetaminophen 325 mg capsule 650 mg PO Q4H PRN fever o r pain 11/06/24 Unknown History cephalexin 500 mg capsule 500 mg PO TID 11/06/24 Unkno wn History cholecalciferol (vitamin D3) 125 5,000 unit PO DAILY 0 11/06/24 Unknown History mcg (5,000 unit) tablet (Vitamin D3) diclofenac sodium 1 % topical gel 4.5 inch topical BID 11/06/24 Unknown History nystatin 100,000 unit/gram topical 1 applic topical DA JNE 11/06/24 Unknown History powder (Nystop) pregabalin 75 mg capsule (Lyrica) 75 mg PO QHS 5 Unknown History zolmitriptan 5 mg disintegrating 5 mg PO Q4H PRN PRN m igraine 11/06/24 Unknown History tablet headache Allergy/AdvReac Type Severity Reaction Status Date / Time No Known Allergies Allergy Unverified 10/15/24 13:34 Social History Smoking Status: Former smoker Review of Systems (Anesthesia) ROS Narrative System reviewed and no additional complaints, except as documented. 11/06/24 0754 a VOLCANOLOGY TEACHER> Date _ Yael Sirca 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 Signature: Date CC: ~ Signed [facility]05-26-2025 Hospital Discharge instructions Patient Education 11/02/2024 03:17:47 Cellulitis Skin Infection Cellulitis Cellulitis is an infection of the deep layers of skin. A break in the skin, such as a cut or scratch, can let bacteria under the skin. If the bacteria get to deep layers of the skin, it can be serious. If not treated, cellulitis can get into the bloodstream and lymph nodes. The infection can then spread throughout the body. This causes serious illness. Cellulitis causes the affected skin to become red, swollen, warm, and sore. The reddened areas havea visible border. An open sore may leak fluid (pus). You may have a fever, chills, and pain. Cellulitis is treated with antibiotics taken for 7 to 10 days. An open sore may be cleaned and covered with cool wet gauze. Symptoms should get better 1 to 2 days after treatment is started. Make sure to take all the antibiotics for the full number of days until they are gone. Keep taking the medicine even if your symptoms go away. Home care Follow these tips: Limit the use of the part of your body with cellulitis. If the infection is on your leg, keep your leg raised while sitting. This will help to reduce swelling. Take all of the antibiotic medicine exactly as directed until it is gone. Do not miss any doses, especially during the first 7 days. Don t stop taking the medicine when your symptoms get better. Keep the affected area clean and dry. Wash your hands with soap and warm water before and after touching your skin. Anyone else who touches your skin should also wash his or her hands. Don't share towels. Follow-up care Follow up with your healthcare provider, or as advised. If your infection does not go away on the first antibiotic, your healthcare provider will prescribe a different one. When to seek medical advice Call your healthcare provider right away if any of these occur: Red areas that spread Swelling or pain that gets worse Fluid leaking from the skin (pus) Fever higher of 100.4 F (38.0 C) or higher after 2 days on antibiotics [id number] [employer] [place] [address]. All rights reserved. This information is not intended as a substitute for professional medical care. Always follow yourhealthcare professional's instructions. Follow Up Care 11/02/2024 02:51:06 With:Call Physician Referral Address:Unknown When:2-4 days [facility] 05-26-[facility]25 Emergency department Discharge summary Discharge Instructions Thank you for allowing [facility] to assist you with your healthcare needs. The following is importantdischarge information regarding your hospital visit. Diagnosis from Today's Visit Anticoagulated Bilateral lower extremity pain Cellulitis of right lower extremity History of deep venous thrombosis What to Do Next Instructions from Your Care Team Discharge ED Outpatient Vascular Lab - Ordered -- Test Requested: Venous Doppler, Lower extremity, Bilateral, Test Reason: Edema, Mon-Fri 8am-4:30pm: Call [phone] at 7:30am to schedule a same day appointment for testing. Please be aware there may be a short wait time., Weekend Holiday 8am-6pm:... Post Acute Orders No qualifying data available. You Need to Schedule the Following Appointments Follow Up with Call Physician Referral When:Within 2-4 days Allergies No active allergies Medications Please ask your primary doctor or pharmacist before taking any other medication not listed, including over the counter drugs, herbal medications, vitamins and or supplements as they may interact withyour home medications. What How Much When Instructions Last Dose New cephalexin (cephalexin 500 mg oral capsule) 1 cap by mouth Four (4) times a day Duration: 7 Days Printed Prescription Please take this list to your next doctor s visit. Bring all medications you take, including over the counter medications, herbals and other supplements with you to your doctor s visit. Patients and families are reminded to discard old lists and to update any records with all medication providers or retail pharmacies. Education Materials Cellulitis Cellulitis is an infection of the deep layers of skin. A break in the skin, such as a cut or scratch, can let bacteria under the skin. If the bacteria get to deep layers of the skin, it can be serious. If not treated, cellulitis can get into the bloodstream and lymph nodes. The infection can then spread throughout the body. This causes serious illness. Cellulitis causes the affected skin to become red, swollen, warm, and sore. The reddened areas havea visible border. An open sore may leak fluid (pus). You may have a fever, chills, and pain. Cellulitis is treated with antibiotics taken for 7 to 10 days. An open sore may be cleaned and covered with cool wet gauze. Symptoms should get better 1 to 2 days after treatment is started. Make sure to take all the antibiotics for the full number of days until they are gone. Keep taking the medicine even if your symptoms go away. Home care Follow these tips: Limit the use of the part of your body with cellulitis. If the infection is on your leg, keep your leg raised while sitting. This will help to reduce swelling. Take all of the antibiotic medicine exactly as directed until it is gone. Do not miss any doses, especially during the first 7 days. Don t stop taking the medicine when your symptoms get better. Keep the affected area clean and dry. Wash your hands with soap and warm water before and after touching your skin. Anyone else who touches your skin should also wash his or her hands. Don't share towels. Follow-up care Follow up with your healthcare provider, or as advised. If your infection does not go away on the first antibiotic, your healthcare provider will prescribe a different one. When to seek medical advice Call your healthcare provider right away if any of these occur: Red areas that spread Swelling or pain that gets worse Fluid leaking from the skin (pus) Fever higher of 100.4 F (38.0 C) or higher after 2 days on antibiotics [id number] [employer] [place] [address]. All rights reserved. This information is not intended as a substitute for professional medical care. Always follow yourhealthcare professional's instructions. Additional Information VACCINATE! IT SAVES LIVES! Members of the community who have not yet received the COVID-19 vaccine and would like to receive it can visit one of [facility] vaccine clinics. There are many vaccine clinic locations within the [facility]. For locations and available times, please visit www.[email or web address].[place].gov/. It is important to note that some COVID mobile vaccine clinics are held outdoors and may be canceled in rainy or stormy conditions. To learn more about pediatric vaccinations (ages 5-11), we invite you to visit the [facility] webpage. [email or web address]/[email or web address] learn more about the COVID-19 vaccine, we invite you to visit the CDC website for a list of frequently asked questions. https://www.cdc.gov/coronavirus/2019-ncov/vaccines/faq.html [facility] [facility] Patient Portal Access Instructions: Stay connected with your healthcare team and access your personal medical information anytime with the [employer] Patient Portal. If you would like a full copy of your medical records please contact the [facility] Medical Records Department Saturday through Saturday between 8a.m. and 4:30p.m. Please follow the directions below to access the portal: 1.Access the email account you provided upon registration to the [facility].2.Look for an invitation email from [facility].3.Open the email and access the invitation link: Accept Invitation to [facility]4.Fill in the required jara to create your account. Sign into www.[employer] with your username and password that you created in the above steps to stay up to date. You can then view a summary of results, a summary of your visits, and the ability to download your summaries to your computer or send the information securely to a physician. Remember that your healthcare information is confidential, so carefully consider who you will allow to register on the [facility] Patient Portal for access to your information. You can also access the [employer] Patient Portal on the [facility]. Simply click on Health Records under [employer] and then click on the [employer] logo. HOW TO SAFELY DISPOSE OF PRESCRIPTION MEDICATIONS Please use one of the following methods to safely dispose of your unused medications. 1.Use a drug disposal kit: the drug disposal pouch allows you to safely discard your old and unuseddrugs. Ask your nurse to give you one when you are discharged.2.Visit a local take-back location: Many local pharmacies and police departments have programs that collect old and unwanted prescriptiondrugs. Call your local pharmacy or go to http://[employer]/7Z7Gf6e to find one close to you.3.Make use of household items: Use cat litter or old coffee grounds to dispose medications if other options arenot available. Mix your drugs with these household products, seal them in an airtight container andthrow it into the garbage. Call [facility]: [phone] to be sure your drugs can be disposed of in this way. Some medicines may require a different approach.4.Never flush your medications down the toilet. IF YOU HAVE BEEN PRESCRIBED AN OPIOIDS FOR PAIN If you have been prescribed an opioid (such as hydrocodone, oxycodone or morphine), it is critical to understand the possible side effects and risks of opioid pain medications. Even when taken as directed, opioids can have several side effects including: Tolerance, meaning you might need to take more of a medication for the same pain relief. Nausea, vomiting and/or constipation. Sleepiness, dizziness, dry mouth, confusion, depression or itching. Physical dependence, meaning you have withdrawal symptoms when a medication is stopped ? this can develop within a few days. KNOW YOUR RESPONSIBILITIES It is important to know exactly how much and how often to take the opioid pain medications you are prescribed. Never take opioids in higher amounts or more often than prescribed. Do not combine opioids with alcohol or other drugs that cause drowsiness, such as benzodiazepines, also known as benzos,including diazepam and alprazolam, muscle relaxants or sleep aids. Never sell or share prescriptionopioids. This is illegal. Store opioids in a secure place and out of reach of others (including children, family, friends and visitors). The last page(s) of this document has been signed and retained as a CHART COPY Signatures Patient Education Materials Cellulitis Skin Infection Medication Leaflets My discharge plan and instructions have been reviewed and explained to me and INATASHA SHEILAH understand my current condition and have read and understand these discharge instructions. I have received a written copy of the plan/instructions. If I have questions, I am aware that I should contact my doctor. Patient/Unit Nurse Signature: Date/Time: Relationship to Patient: Witness Name/Signature: Date/Time: [facility]05-14-2025 Miscellaneous Notes* Telephone Encounter - Leslie Jones RN - 10/21/2024 2:56 PM EDT She LM. She needs some medical records sent. She needs to call [employer] at [phone]. I tried calling her. DL and KAYLEIGH full. * Telephone Encounter - Leslie Jones RN - 10/21/2024 2:56 PM EDT [facility]* Telephone Encounter - Leslie Jones RN - 10/21/2024 2:56 PM EDT She LM. She needs some medical records sent. She needs to call [employer] at [phone]. I tried calling her. DL and KAYLEIGH full. [facility]05-14-2025 Telephone encounter Note* Telephone Encounter - Leslie Jones RN - 10/21/2024 2:56 PM EDT called [facility]05-14-[facility]25 Miscellaneous Notes* Telephone Encounter - LORENZA Vieira - 10/21/2024 1:55 PM EDT Social Work Encounter: Patient called SW to provide update that she is now in [facility] in [facility]. Patient originally calling to request medical records, SW provided patient with HIM information to request records. Patient states she is generally doing well, but feels like diabetes is not currently well managed. SW encouraged patient to talk with facility nursing staff regarding her needs. Contact informationverified with patient. Address in chart is current. documented in this encounterRegional Medical CenterlifeIO [facility] [id number] Telephone encounter Note* Telephone Encounter - LORENZA Vieira - 10/21/2024 1:55 PM EDT Social Work Encounter: Patient called SW to provide update that she is now in [facility] in [facility]. Patient originally calling to request medical records, SW provided patient with HIM information to request records. Patient states she is generally doing well, but feels like diabetes is not currently well managed. SW encouraged patient to talk with facility nursing staff regarding her needs. Contact informationverified with patient. Address in chart is current. [facility] Phone: 1(128) 423-606105-08-2025 Evaluation note* Diagnosis Onset Date Resolution Status Admit Date Encounter for screening for malignant neoplasm of colon acute October 15, 2024 1:06pm Stool incontinence acute October 1:06pm [facility] Work Phone: [phone] Evaluation note* Diagnosis Onset Date Resolution Status Admit Date Encounter for screening for malignant neoplasm of colon acute October 15, 2024 1:06pm Stool incontinence acute October 1:06pm Achalasia of esophagus acute 2024 10:35am Stool incontinence acute November 092024 10:35am [facility] Work Phone: [phone] History of Present illness Narrative* Luna Duke - 08/24/2024 3:55 PM EDT Bharat contacted this clinic via phone today to inform us that her hearing aids are not working and are in need of repair. She also informed this clinic that she has moved to [place], [place], andwill need to transfer audiological care to be closer to home. She was encouraged to call her insurance to inquire about clinics in her area that accept her insurance. This was explained several times, but Bharat did not indicate understanding. She indicated that her guardian (Samantha, from [facility]) is the person who typically handles these types of tasks for her. Bharat providedSamantha's phone number and requested that this clinic call Samantha to explain the situation. Samantha was contacted via phone and stated that she would call Bharat's living facility to coordinate care. Bharat was contacted back via phone to inform her of the update, but did not answer. A voice message was left. 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 Just finished lunch. She reports that she had a video conference regarding her guardianship this morning, the attended the meeting with her. She shared her insight with the process and shared her journals. During this visit - she had specific requests regarding her medical care needs and shared good insight to her medical jerald. Reported that she has continue to experience migraine headaches and had requested increased dose for her migraine medication. In her journal - she expressed her headaches are extreme and she is very uncomfortable. She also shared that she wants a low salt diet. Has dependent edema in her feet. Will order low salt diet. - Dietitian to be notified. She also expressed desire to improve her blood sugars and focus on weight loss. Is requesting to berestarted on Trulicity. Reports that she had been talking Trulicity prior to her hospitalization. Will resume at this time. She reports that she continues to walk in the unit for several minutes twice a day- encourage her to continue to increase her activity. She shared goal to transfer into a assisted that is designed for individuals with cerebral palsy - she shared with me a letter that she wrote and has mailed to the governor's office. Encouraged her to continue to express herself in her journals. Instructed her to add good thought or positive occurrence in her journal daily. HPI Objective Vital Signs: 128/77-68-16-97.3 Physical Exam Vitals and nursing note reviewed. Constitutional: Appearance: She is well-groomed. She is morbidly obese. Cardiovascular: Rate and Rhythm: Normal rate and regular rhythm. Pulmonary: Effort: Pulmonary effort is normal. Breath sounds: Normal breath sounds. Comments: Lungs clear Abdominal: General: Bowel sounds are normal. Palpations: Abdomen is soft. Tenderness: There is no abdominal tenderness. Musculoskeletal: Cervical back: Neck supple. Right lower le+ Edema present. Left lower le+ Edema present. Neurological: Mental Status: She is alert. Psychiatric: Attention and Perception: Attention normal. Mood and Affect: Mood normal. Speech: Speech normal. Behavior: Behavior is cooperative. Thought Content: Thought content normal. Assessment & Plan Problem List Items Addressed This Visit Neurology Intractable migraine without status migrainosus - Primary Reports multiple migraines Reports that zolmitriptan dose is not effective - is requesting increased dose Reports that her migraines are triggered by the weather Advise to limit caffeine food, coffee, chocolate Dietitian to visit with her Reinforced stress management techniques Cardiovascular Benign essential HTN Monitor BP Monitor labs Remains with dependent edema Lasix Diet change to low salt diet Lungs clear Endocrinology Controlled type 2 diabetes mellitus without complication, with long-term current use of insulin (HCC) Monitor BS Continues to require Sliding scale - lispro Lantus insulin bid, insulin adjusted Will add Trulicity for improved glycemic control Gabapentin - neuropathy Dapagliflozin Is concerned about weight gain Advised that she needs to be active to burn calories Therapy referral Encourage activity- walking Dietitian continues to monitor Hypothyroidism Monitor TSH Levothyroxine Monitor symptoms of hypo/hyperglycemia Psychiatry Schizophrenia (HCC) Lurasidone Mental health to follow Multiple somatic complaints Monitor environment and potential stressors Medication, treatments and labs reviewed Continue medications and treatments as listed in EMR Samantha Forman APRN.ENVELOPE MACHINE ADJUSTER documented in this encounterMckitrick Hospital02-13-2025 Miscellaneous Notes* Telephone Encounter - HalieLORENZA Sellers - 07/23/2024 9:57 AM EST Social Work Encounter: Patient called in to talk with SW. Patient states she is living in a SNF in [place], [place]. Patient wants to move again to another facility at some point. Patient calling to provide general live update and denies any primary care needs at this time. Support provided. documented in this encounterProvidence Hospital02-13-2025 Telephone encounter Note* Telephone Encounter - LORENZA Vieira - 07/23/2024 9:57 AM EST Social Work Encounter: Patient called in to talk with SW. Patient states she is living in a SNF in [place], [place]. Patient wants to move again to another facility at some point. Patient calling to provide general live update and denies any primary care needs at this time. Support provided. [facility] Work Phone: [phone] 150-711302-03-2025 History of Present illness Narrative* Samantha Forman APRN.EBER - 07/13/2024 6:16 PM EST Progress Note LTC Facility: [facility] Subjective Chief complaint:Bharat Manzanares is a 59 year old female who is a longterm care patient being seenand evaluated for blood sugar regulation HPI:Reviewed blood sugars, remains hyperglycemic. Adjusted insulin dose. Visited with her - she is in a good mood - talkative about going outside. Informed her that her blood sugars remains elevated . She reports that she continue to walk laps in the unit. Positive reinforcement given -to increase activity. Informed of required insulin adjustment. Mental health continues to follow HPI Objective Vital Signs: 137/75-81-18-97.4 Physical Exam Vitals and nursing note reviewed. Constitutional: Appearance: She is well-groomed. She is morbidly obese. Cardiovascular: Rate and Rhythm: Normal rate and regular rhythm. Pulmonary: Effort: Pulmonary effort is normal. Breath sounds: Normal breath sounds. Comments: Lungs clear Abdominal: General: Bowel sounds are normal. Palpations: Abdomen is soft. Tenderness: There is no abdominal tenderness. Musculoskeletal: Cervical back: Neck supple. Right lower le+ Edema present. Left lower le+ Edema present. Neurological: Mental Status: She is alert. Psychiatric: Attention and Perception: Attention normal. Mood and Affect: Mood normal. Speech: Speech normal. Behavior: Behavior is cooperative. Thought Content: Thought content normal. Assessment & Plan Problem List Items Addressed This Visit Neurology Intractable migraine without status migrainosus Reports multiple migraines Reports that zolmitriptan is helping Reports that her migraines are triggered by the weather Advise to limit caffeine food, coffee, chocolate Dietitian to visit with her Reinforced stress management techniques Currently denies any headache- Cerebral palsy (HCC) - Primary Reports intellectual disability Cardiovascular Benign essential HTN Monitor BP Monitor labs Increased dependent edema Lasix added Lungs clear Endocrinology Controlled type 2 diabetes mellitus without complication, with long-term current use of insulin ([facility]) Monitor BS Continues to require Sliding scale - lispro Lantus insulin bid, insulin adjusted Gabapentin - neuropathy Diabetic shoes -referral made Dapagliflozin Dietitian to visit - to help with making good food choices Need to limit high carbohydrate foods Is concerned about weight gain Advised that she needs to be active to burn calories Therapy referral Encourage activity- walking Hypothyroidism Monitor TSH Levothyroxine Monitor symptoms of hypo/hyperglycemia Psychiatry Schizophrenia (HCC) Lurasidone Mental health to follow Multiple somatic complaints Monitor environment and potential stressors Has refused antipsychotic Mental health notified Is concerned about weight gain Medication, treatments and labs reviewed Continue medications and treatments as listed in EMR Samantha Forman APRN.ENVELOPE MACHINE ADJUSTER documented in this encounterMckitrick Hospital01-27-2025 History of Present illness Narrative* Samantha Forman APRN.EBER - 07/06/2024 4:28 PM EST Progress Note LTC Facility: [facility] Subjective Chief complaint:Bharat Manzanares 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 Adjusted insulin . Informed her of need adjustment of insulin. She is currently visiting with clinical psychologist. Discussed with her how she needs to continue to walk throughout the unit for healthy exercise. She reports that she is motivated to lose weight and is concerned about her side effects of her medications. Provided positive reinforcement with her activity and exercise. Has been referred to therapy. Informed her that she has a entire team of people who are working with her to help her with her goals. HPI Objective Vital Signs: 137/75-81-18-97.4 Physical Exam Vitals and nursing note reviewed. Constitutional: Appearance: She is well-groomed. She is morbidly obese. Cardiovascular: Rate and Rhythm: Normal rate and regular rhythm. Pulmonary: Effort: Pulmonary effort is normal. Breath sounds: Normal breath sounds. Comments: Lungs clear Abdominal: General: Bowel sounds are normal. Palpations: Abdomen is soft. Tenderness: There is no abdominal tenderness. Musculoskeletal: Cervical back: Neck supple. Right lower le+ Edema present. Left lower le+ Edema present. Neurological: Mental Status: She is alert. Psychiatric: Attention and Perception: Attention normal. Mood and Affect: Mood normal. Speech: Speech normal. Behavior: Behavior is cooperative. Thought Content: Thought content normal. Comments: Poor judgement Good memory Assessment & Plan Problem List Items Addressed This Visit Neurology Cerebral palsy (HCC) - Primary Reports intellectual disability Cardiovascular Benign essential HTN Monitor BP Monitor labs Increased dependent edema Lasix added Lungs clear Endocrinology Controlled type 2 diabetes mellitus without complication, with long-term current use of insulin ([facility]) Monitor BS Continues to require Sliding scale - lispro Lantus insulin bid, insulin adjusted Gabapentin - neuropathy Diabetic shoes -referral made Dapagliflozin Dietitian to visit - to help with making good food choices Need to limit high carbohydrate foods Is concerned about weight gain Advised that she needs to be active to burn calories Therapy referral Encourage activity- walking Hypothyroidism Monitor TSH Levothyroxine Monitor symptoms of hypo/hyperglycemia Psychiatry Schizophrenia ([facility]) Lurasidone Mental health to follow Multiple somatic complaints Monitor environment and potential stressors Has refused antipsychotic Mental health notified Is concerned about weight gain Medication, treatments and labs reviewed Continue medications and treatments as listed in EMR Samantha Forman, MEETING COORDINATOR.ENVELOPE MACHINE ADJUSTER documented in this encounterMckitrick Hospital01-13-2025 History of Present illness Narrative* Samantha Forman - 06/22/2024 5:38 PM EST Progress Note LT Facility: [facility] Subjective Chief complaint:Bharat Manzanares is a 59 year old female who is a longterm care patient being seenand evaluated for medical care HPI: Is sitting up on the side of her bed. She reports that she has been using oxygen at night because of difficulty breathing. She reports that she used oxygen in the hospital for her COPD. Is social and talkative. Voice is clear. Denies any chest pain or tightness. Has increased edema in both legs and feet - will resume lasix at this time. She reported that she has always taken lasix for several years. Continue to report that she is having migraines - indicated that her migraine are triggered by the weather. She just finished lunch, has a good appetite. Denies any nausea or vomiting. Is in her room with lights on and watch TV. She reports the TV doesn't bother her headaches. She is talkative about transferring to a facility in [place] - states it would be near a brain jerald center. She reports that her case monitor is working on it. Mental health continues to follow. Objective Vital Signs: 141/78-85-18-98.0 Physical Exam Vitals and nursing note reviewed. Constitutional: Appearance: She is well-groomed. She is morbidly obese. Cardiovascular: Rate and Rhythm: Normal rate and regular rhythm. Pulmonary: Effort: Pulmonary effort is normal. Breath sounds: Normal breath sounds. Comments: Lungs clear Abdominal: General: Bowel sounds are normal. Palpations: Abdomen is soft. Tenderness: There is no abdominal tenderness. Musculoskeletal: Cervical back: Neck supple. Right lower le+ Edema present. Left lower le+ Edema present. Neurological: Mental Status: She is alert. Psychiatric: Attention and Perception: Attention normal. Mood and Affect: Mood normal. Speech: Speech normal. Behavior: Behavior is cooperative. Thought Content: Thought content normal. Comments: Poor judgement Good memory Assessment & Plan Problem List Items Addressed This Visit Neurology Intractable migraine without status migrainosus Reports multiple migraines Reports that zolmitriptan is helping Reports that her migraines are triggered by the weather Advise to limit caffeine food, coffee, chocolate Dietitian to visit with her Reinforced stress management techniques Cerebral palsy (HCC) - Primary Reports intellectual disability Cardiovascular Benign essential HTN Monitor BP Monitor labs Increased dependent edema Systolic BP - 141/78 Will add lasix Lungs clear Endocrinology Controlled type 2 diabetes mellitus without complication, with long-term current use of insulin (HCC) Monitor BS Continues to require Sliding scale - lispro Lantus insulin bid Gabapentin - neuropathy Diabetic shoes -referral made Dapagliflozin Dietitian to visit Need to limit high carbohydrate foods Hypothyroidism Monitor TSH Levothyroxine Monitor symptoms of hypo/hyperglycemia Psychiatry Schizophrenia (HCC) Lurasidone Mental health to follow Multiple somatic complaints Monitor environment and potential stressors Medication, treatments and labs reviewed Continue medications and treatments as listed in EMR Samantha Forman APRN.ENVELOPE MACHINE ADJUSTER documented in this encounterMckitrick Hospital01-06-2025 History of Present illness Narrative* Samantha Forman - 06/15/2024 7:41 PM EST Progress Note LT Facility: [facility] Subjective Chief complaint:Bharat Manzanares is a 59 year old female who is a longterm care patient being seenand evaluated for reported migraines HPI: Nursing reports that she is complaining of a migraine headache. She is currently in bed. Reports that she has a migraine. Reports that her head is hurting - was not able to further describe the characteristics of her pain. Denies any visual changes. Reports that she was nauseated earlier. She reported that her migraines often occur with the changing weather. She also reported that she is feeling very stressed. She indicated that she wasn't getting along with other residents. She verbalized frustration with some staff members - indicating that some of thestaff - didn't like her. She also reported that last week she received a call from a old friend -who made her upset. She also reported that her room has been changed several times. She stated thatat this time - she likes her roommate and she is quiet. She acknowledged that she is feeling more stressed. She agreed that her stress is contributing to her migraines. She is requesting to have her migraine medication changed to zolmitriptan. She indicated that zolmitriptan has always been effective for her in the past. She also reported that she wants to meet with the dietitian and is concerned about her weight. She agreed with recommendation to reduce caffeine in her diet - avoid chocolate and coffee- may contribute to her headaches. She also reported that she would like to work with therapy and felt that the exercise would her her stress. She has good insight to her stress level. Reviewed with her blood sugars and discussed with her - that will adjust her insulin. Following this visit- I notified mental health provider of her reported stress and frustrations. Social service updated regarding her reported concerns. HPI Objective Vital Signs: 132/64-72-17-97.4 Current weight- 292.8 pounds. Physical Exam Assessment & Plan Problem List Items Addressed This Visit Neurology Intractable migraine without status migrainosus Reports multiple migraines Requests to use zolmitriptan Reports that zolmitriptan has been effective in past Recommend to manage stress Is requesting therapy- requisition sent Advise to limit caffeine food, coffee, chocolate Dietitian to visit with her Discussed stress management techniques Cerebral palsy (HCC) - Primary Reports intellectual disability Cardiovascular Benign essential HTN Monitor BP Monitor labs Monitor edema Respiratory congestion Endocrinology Controlled type 2 diabetes mellitus without complication, with long-term current use of insulin ([facility]) Monitor BP Adjusted insulin Sliding scale - lispro Lantus insulin bid Gabapentin - neuropathy Diabetic shoes -referral made Dapagliflozin Dietitian to visit Need to limit high carbohydrate foods Hypothyroidism Monitor TSH Levothyroxine Monitor symptoms of hypo/hyperglycemia Psychiatry Schizophrenia ([facility]) Lurasidone Mental health to follow Multiple somatic complaints Monitor environment and potential stressors Medication, treatments and labs reviewed Continue medications and treatments as listed in EMR Samantha Forman APRN.ENVELOPE MACHINE ADJUSTER documented in this encounterMckitrick Hospital12-04-2024 Nurse Note* Kirstin Bloom RN - 05/13/2024 4:08 PM EST Patient IV taken out. Patient discharged off unit in stable condition [facility] transportation. [id number]* Kirstin Bloom RN - 05/13/2024 4:08 PM EST Patient IV taken out. Patient discharged off unit in stable condition via transportation. * Kirstin Bloom RN - 05/13/2024 2:00 PM EST Called Ever for report. No answer. documented in this [facility]12-04-2024 Nurse Note* Kirstin Bloom RN - 05/13/2024 2:00 PM EST Called [facility] for report. No answer. [id number] NoteDischarge Summary Hospitalist Discharge Summary Bharat Manzanares : 1965 Admit date: 05/10/2024 Discharge date: 05/13/2024 Admitting Physician: Edward Morales MD Primary Care Physician: DARELL Mckinnon NP Visit Status: Inpatient Code Status: Full Code BRIEF HOSPITAL COURSE: This is a 59-year-old female with past medical history including morbid obesity, cerebral palsy, developmental delay, CHF, COPD, DM2, who presents from her long-term care facility with diarrhea. Per reports she was having upwards of 30 episodes of diarrhea when her symptoms began in the setting of a recent norovirus outbreak. She been feeling feverish and having abdominal pain along with her diarrhea. In the ER she was noted to be hyponatremic. Chest x-ray showed some pulmonary vascular congestion with interstitial edema and she required a small amount of supplemental oxygen. She tested positive for norovirus as well as C. difficile. Her C. difficile toxin A and B EIA was negative and this was thought to be colonization. The patient was provided supportive care and slowly improved over the course of days. She was having regular bowel movements and her abdominal pain resolved and she was discharged to her longterm care facility and optimized condition. Norovirus infection-supportive care and patient clinically improved Bacteriuria-asymptomatic Acute respiratory insufficiency-suspect atelectasis as patient does not move around much; weaned to room air Morbid obesity-lifestyle modifications Cerebral palsy and developmental delay DM type II-SSI Hyponatremia-resolved C. difficile-suspect colonized; diarrhea resolved without treatment of c. diff and signs and symptoms more consistent with norovirus infection Anemia-normocytic, no signs of active bleeding; resolved Generalized weakness-PT/OT Past Medical History: Diagnosis Date Acoustic neuroma ([facility]) 11/28/2015 Overview: acoustic neuroma Onset Date: Jun 29, 2013 Allergic rhinitis Asthma Uncomplicated asthma Astigmatism 04/30/2016 Attention deficit disorder with hyperactivity 03/03/2018 Cerebral palsy ([facility]) CHF (congestive heart failure) ([facility]) ([facility]) Seen at [facility] Dr. 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 Diarrhea Dysphagia 07/09/2013 GERD (gastroesophageal reflux disease) Gingival and periodontal disease 07/09/2013 Hearing loss Hordeolum externum of left lower eyelid 05/03/2017 Hyperglycemia Hyperlipidemia Hypertension Hypoglycemia Hypothyroidism acquired Infantile cerebral palsy ([facility]) ([facility]) 07/09/2013 Overview: updated for 03/25 reg imo load Intractable migraine without aura 09/30/2001 Overview: updated for 03/25 reg imo load Irregular heartbeat Irregular heartbeat Learning disability Low compliance bladder 07/09/2013 Mental retardation 03/03/2018 Migraine Mixed stress and urge urinary incontinence 03/03/2018 [place]bid [place]) 07/09/2013 Myopia 04/30/2016 Neuropathy Nicotine dependence, cigarettes, with other nicotine-induced disorders Nuclear sclerotic cataract 04/30/2016 OAB (overactive bladder) 07/12/2015 Osteoarthritis Overactive bladder Parasomnia 07/09/2013 Polyneuropathy in diabetes ([facility]) ([facility]) 10/21/2002 Poor dentition Simple chronic bronchitis [place]) 07/12/2015 Stress incontinence in female 07/12/2015 Thyroid disease Tobacco abuse Type 2 diabetes mellitus ([facility]) Urinary incontinence 07/09/2013 Wears glasses Procedures: None Hospital Course: See above. See discharge diagnoses list above and medication adjustments below in med rec.The patient is discharged in improved and stable condition. Consults: IP CONSULT TO CASE MANAGEMENT IP CONSULT TO SPIRITUAL SERVICES Discharge Instructions: Diet: Dietary Orders (From admission, onward) Start Ordered 05/10/24 1639 Adult diet Regular; 5 carb choices (75 gm/meal) Diet effective now Question Answer Comment Diet type Regular Carbohydrate restriction: 5 carb choices (75 gm/meal) 05/10/24 1638 Activity: as tolerated Recommended Outpatient Tests: Disposition: Patient discharged in stable condition [facility] (Non-Skilled). Greater than 31 minutes spent discharging the patient and coming up with patient discharge plan. Vitals: BP 116/59 Pulse 58 Temp 36.2 ?C (97.2 ?F) (Temporal) Resp 16 Ht 5' 2 (1.575 m) Wt 280 lb (127 kg) SpO2 94% BMI 51.21 kg/m? Pulse Ox: SpO2 Av % Min: 94 % Max: 96 % Supplemental O2: O2 Flow Rate (L/min): 2 L/min Physical Exam Constitutional: General: She is not in acute distress. Comments: +morbid obesity HENT: Head: Normocephalic and atraumatic. Mouth/Throat: Mouth: Mucous membranes are moist. Eyes: Extraocular Movements: Extraocular movements intact. Conjunctiva/sclera: Conjunctivae normal. Cardiovasc (more content not included)...[facility]12-04-2024 Hospital course Narrative* Francisco Stephanie, DO - 05/13/2024 1:33 PM EST Discharge Summary Hospitalist Discharge Summary Bharat Manzanares : 1965 Admit date: 05/10/2024 Discharge date: 05/13/2024 Admitting Physician: Edward Morales MD Primary Care Physician: DARELL Mckinnon NP Visit Status: Inpatient Code Status: Full Code BRIEF HOSPITAL COURSE: This is a 59-year-old female with past medical history including morbid obesity, cerebral palsy, developmental delay, CHF, COPD, DM2, who presents from her long-term care facility with diarrhea. Per reports she was having upwards of 30 episodes of diarrhea when her symptoms began in the setting of a recent norovirus outbreak. She been feeling feverish and having abdominal pain along with her diarrhea. In the ER she was noted to be hyponatremic. Chest x-ray showed some pulmonary vascular congestion with interstitial edema and she required a small amount of supplemental oxygen. She tested positive for norovirus as well as C. difficile. Her C. difficile toxin A and B EIA was negative and this was thought to be colonization. The patient was provided supportive care and slowly improved over the course of days. 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 Norovirus infection-supportive care and patient clinically improved Bacteriuria-asymptomatic Acute respiratory insufficiency-suspect atelectasis as patient does not move around much; weaned toroom air Morbid obesity-lifestyle modifications Cerebral palsy and developmental delay DM type II-SSI Hyponatremia-resolved C. difficile-suspect colonized; diarrhea resolved without treatment of c. diff and signs and symptoms more consistent with norovirus infection Anemia-normocytic, no signs of active bleeding; resolved Generalized weakness-PT/OT Past Medical History: Diagnosis Date Acoustic neuroma ([facility]) 11/28/2015 Overview: acoustic neuroma Onset Date: Jun 29, 2013 Allergic rhinitis Asthma Uncomplicated asthma Astigmatism 04/30/2016 Attention deficit disorder with hyperactivity 03/03/2018 Cerebral palsy ([facility]) CHF (congestive heart failure) ([facility]) ([facility]) Seen at [facility] Dr. 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 Diarrhea Dysphagia 07/09/2013 GERD (gastroesophageal reflux disease) Gingival and periodontal disease 07/09/2013 Hearing loss Hordeolum externum of left lower eyelid 05/03/2017 Hyperglycemia Hyperlipidemia Hypertension Hypoglycemia Hypothyroidism acquired Infantile cerebral palsy ([facility]) ([facility]) 07/09/2013 Overview: updated for 03/25 reg imo load Intractable migraine without aura 09/30/2001 Overview: updated for 03/25 reg imo load Irregular heartbeat Irregular heartbeat Learning disability Low compliance bladder 07/09/2013 Mental retardation 03/03/2018 Migraine Mixed stress and urge urinary incontinence 03/03/2018 Morbid obesity ([facility]) ([facility]) 07/09/2013 Myopia 04/30/2016 Neuropathy Nicotine dependence, cigarettes, with other nicotine-induced disorders Nuclear sclerotic cataract 04/30/2016 OAB (overactive bladder) 07/12/2015 Osteoarthritis Overactive bladder Parasomnia 07/09/2013 Polyneuropathy in diabetes ([facility]) ([facility]) 10/21/2002 Poor dentition Simple chronic bronchitis ([facility]) ([facility]) 07/12/2015 Stress incontinence in female 07/12/2015 Thyroid disease Tobacco abuse Type 2 diabetes mellitus ([facility]) Urinary incontinence 07/09/2013 Wears glasses Procedures: None Hospital Course: See above. See discharge diagnoses list above and medication adjustments below in med rec.The patient is discharged in improved and stable condition. Consults: IP CONSULT TO CASE MANAGEMENT IP CONSULT TO SPIRITUAL SERVICES Discharge Instructions: Diet: Dietary Orders (From admission, onward) Start Ordered 05/10/24 1639 Adult diet Regular; 5 carb choices (75 gm/meal) Diet effective now Question Answer Comment Diet type Regular Carbohydrate restriction: 5 carb choices (75 gm/meal) 05/10/24 1638 Activity: as tolerated Recommended Outpatient Tests: Disposition: Patient [facility] Greater than 31 minutes spent discharging the patient and coming up with patient discharge plan. Vitals: BP 116/59 Pulse 58 Temp 36.2 C (97.2 F) (Temporal) Resp 16 Ht 5' 2 (1.575 m) Wt 280 lb (127 kg) SpO2 94% BMI 51.21 kg/m Pulse Ox: SpO2 Av % Min: 94 % Max: 96 % Supplemental O2: O2 Flow Rate (L/min): 2 L/min Physical Exam Constitutional: General: She is not in acute distress. Comments: +morbid obesity HENT: Head: Normocephalic and atraumatic. Mouth/Throat: Mouth: Mucous membranes are moist. Eyes: Extraocular Movements: Extraocular movements intact. Conjunctiva/sclera: Conjunctivae normal. Cardiovascular: Rate and Rhythm: Normal rate and regular rhythm. Pulmonary: Effort: Pulmonary effort is normal. Breath sounds: Normal breath sounds. Abdominal: General: There is no distension. Palpations: Abdomen is soft. Tenderness: There is no abdominal tenderness. Musculoskeletal: General: No swelling. Skin: General: Skin is warm and dry. Neurological: Mental Status: She is alert and oriented to person, place, and time. Comments: +globally weak Psychiatric: Mood and Affect: Mood normal. LABS: Recent Labs 05/11/24 0348 05/13/24 1054 NA 134* 138 K 3.6 4.1 CL 98 103 CO2 30 31 BUN 20* 16 CREATININE 0.87 0.82 GLUCOSE 167* 166* CALCIUM 8.2* 8.6* Recent Labs 05/11/24 0348 05/13/24 1054 WBC 6.7 6.5 RBC 4.54 4.97 HGB 11.2* 12.2 HCT 38.0 41.3 MCV 83.7 83.1 MCH 24.7* 24.5* MCHC 29.5* 29.5* RDW 18.5* 18.0* PLT 229 251 MPV 9.7 9.0 Discharge Medications: Medication List START taking these medications acetaminophen 325 MG tablet Commonly known as: Tylenol Take 2 tablets (650 mg) by mouth every 6 hours as needed for mild pain (1-3) or fever (For temp greater than 100.4 F (38 C)) for up to 10 days. apixaban 5 MG tablet Commonly known as: Eliquis Take 1 tablet (5 mg) by mouth 2 times daily. dapagliflozin 10 MG tablet Commonly known as: Farxiga Take 1 tablet (10 mg) by mouth daily. Start taking on: May 14, 2024 famotidine 20 MG tablet Commonly known as: Pepcid Take 1 tablet (20 mg) by mouth 2 times daily. gabapentin 300 MG capsule Commonly known as: Neurontin Take 1 capsule (300 mg) by mouth 3 times daily. Insulin Lispro 100 UNIT/ML solution injection Commonly known as: Humalog Glucose: Dose: LESS than 150 No Insulin, 150-199 2 Units, 200-249 4 Units, 250- 299 6 Units, 300-3498 Units, 350-400 10 Units, Above 400 12 Units levothyroxine 137 MCG tablet Commonly known as: Synthroid, Levoxyl Take 1 tablet (137 mcg) by mouth every morning (before breakfast). Start taking on: May 14, 2024 lurasidone 40 MG tablet Commonly known as: Latuda Take 1 tablet (40 mg) by mouth daily (with breakfast). Start taking on: May 14, 2024 Where to Get Your Medications Information about where to get these medications is not yet available Ask your nurse or doctor about these medications acetaminophen 325 MG tablet apixaban 5 MG tablet dapagliflozin 10 MG tablet famotidine 20 MG tablet gabapentin 300 MG capsule Insulin Lispro 100 UNIT/ML solution injection levothyroxine 137 MCG tablet lurasidone 40 MG tablet Recommended Follow-up: No follow-up provider specified. Complexity of Follow up: [] Moderate Complexity: follow up within 7-14 calendar days (26105) [x] Severe Complexity: follow up within 7 calendar days (67458) - after DC from LT Follow up Testing, Pending results or Referrals at Transitional Care Visit: [] yes [x] no Instructions to MA: Please call patient on day after discharge (must document patient contacted within 2 business days of discharge). Follow up questions for MA: 1. Did you get medications filled and taking them as instructed from discharge? 2. Are you following your discharge instructions from your hospital stay? 3. Please confirm patient is scheduled for a follow up appointment within the above time frame. Signed: Francisco Brown DO Division of Hospitalist Medicine [facility] 05/13/2024, 1:34 PM documented in this [facility]12-04-2024 Note* Care Coordination - Felicia Figueredo - 05/13/2024 1:00 PM EST MAR & Discharge med list transmitted to [facility] via Careport per [facility] request. [id number]* Care Coordination - Felicia Figueredo - 05/13/2024 1:00 PM EST MAR & Discharge med list transmitted to [facility] via Careport per [facility] request. [id number] Miscellaneous Notes* Care Coordination - Felicia Figueredo - 05/13/2024 1:00 PM EST MAR & Discharge med list transmitted to [facility] via Careport per [facility] request. * Care Coordination - Sandra Martinez RN - 05/13/2024 12:57 PM EST Per attending pt is ready for DC. Pt is able to return LTC. Bedhold. No covid needed. Discharge order placed. PADMINI complete. TCC asked SW to set up transport. RN aware. TCC updated legal guardian. Left VM at this time. TCC updated LTC via careport. TCC tasked LABORATORY DIRECTOR to transmit discharge orders to facility. Discharge date updated and milestones completed. Pt will be transported to [facility] LTC today. * Care Coordination - MARY Ambriz - 05/13/2024 12:50 PM EST SW late entry: Yesterday, Pastoral Care staff Kristin, spoke to SW. Kristin had met with pt. During the visit, pt shared with Kristin, she wanted to return to [facility], not [facility]. SW explained to Kristin, pt has a LG, whom TCC spoke to and has agreed to pt returning to [facility]. Pt would need to talk with LG about a possible move, once at [facility]. TCC sent secure chat to team, pt is medially ready for discharge to LTC [facility]. Pt needs transportation arranged. SW completed [facility], requesting COT transport at 3:30 today. Received response back from [employer], Stu Kinney will spanish moss picker pt at 3:30pm. Sent careport message to [facility] with time of spanish moss picker. SW called pt LG rep listed in chart. Updated LG in discharge. LG would like a copy of discharge paperwork e-mailed to [email or web address] SW shared with LG the info Pastor Foster had given SW about pt preferring to live at [facility]. LG was unaware pt not happy at [facility], pt has given positive feedback to LG. LG will explore this request. Met with pt, introduced self/role. RN had updated pt on discharge time. SW let pt know SW had spoken with LG about pt request to go to [facility]. Pt discussed she has only been at [facility] a couple of weeks. Pt feels limited with being able to freely walk around, can only go off the unit with an aide. Feels aides are not assisting with pt personal hygiene. Pt has a Direction Home edda, as ptfiled complaint about [facility]. SW encouraged pt to let LG and DH know of pt concerns. SW following. . follow up: Sw checked [facility] had acknowledged pt discharge, which was sent to facility 2 hours ago. Sw called [facility], updated front desk officer staff pt spanish moss picker time today. . * Care Plan - David Esquivel RN - 05/13/2024 2:41 AM EST Problem: Knowledge Deficit Goal: Patient/family/caregiver demonstrates understanding of disease process, treatment plan, medications, and discharge instructions Outcome: Progressing Problem: Potential for Compromised Skin Integrity Goal: Skin Integrity is Maintained or Improved Outcome: Progressing * Care Coordination - MARY Ambriz - 05/12/2024 2:18 PM EST TCC updated SW, LG is in agreement for pt to return to [facility] when medically ready. Will require transportation at discharge. SW completed Will Call for COT transport in [facility]. Will Call is good until 05/15. . * Care Coordination - Felicia Figueredo - 05/12/2024 10:40 AM EST Referral placed to [facility] Return - [facility] via Careport per TCC request. Await review and response regarding ability to accept. TCC notified. * Care Coordination - Sandra Martinez RN - 05/12/2024 10:15 AM EST Care Managment Initial Assessment Date: 05/12/2024 Patient Name: Bharat Manzanares : 1965 Patient Information Source of Information: Patient Unit Nurse Name/Contact Information: Samantha Patricioricky legal guardian [phone] Cognition/Language: Permission given to speak with patient new accounts representative/caregiver as indicated: Confirmation of Payer with patient/family: Yes Payer Name: [employer] medicare [place]: No Confirmation of Primary Care Physician: Confirmed PCP Name: Vasiliy Griffin ACOUSTICS TEACHER Seen in last 2 years?: Yes Primary Caregiver: Other (Comment) (LTC) If assistance needed, confirmed caregiver ready, willing and able to care for patient at discharge: Confirmed with: Living Arrangements Current Residence: Number of Floors Number of Entry Steps: Bed/Bath Levels: Facility: [facility] Facility Name: [facility] Plan to Return: Yes Lives with: Support Systems: Family members Activities of Daily Living Ambulation: Assistance Bathing/Dressing: Assistance Elimination/Continence/Toileting: Assistance Feeding: Assistance Who Assists with Activities of Daily Living: LTC Instrumental Activities of Daily Living Prescription Coverage: Yes Pharmacy Used: LTC Medication Management: Medication dispenser Who assists with medication securing and setup?: LTC Transportation/Shopping: Assistance Provider Transportation/Shopping Assistance Provider Name: ambulance transport Transportation Mode: Needs Assistance with Transportation at Discharge: Yes, Comments (ambulance transport back to LT) Meal Preparation: Assistance Provider Laundry/Cleaning: Assistance Provider Finances/Bill Paying: Assistance Provider Communication: Independent Types of Care Services/Equipment Utilized Care Services: Dialysis Type: NA Durable Medical Equipment: Wheelchair (standard or power), Hospital Bed DME Provider: LTC Patient's Goal/Discharge Plan Patient expects to be discharged to: return to [facility] LT Discharge Planning Actions: Continue to follow, Assisted Facility referral indicated [place] of choice: [place] choice discussed Patient's Choice Rights and [employer] and Collaborative Relationships Disclosed as Indicated for Post-Acute Care: Yes Interdisciplinary Team Engagement: Social Work Referral for: Transportation Assistance Additional Information: TCC spoke to pt legal guardian for [place]. Pt admitted with fever and chills. Pt positive for C-DIFF and norovirus. Pt is on 2 L of O2 NC here, none at baseline. Pt may have to go back to LTC with O2. Urine culture positive. Legal guardian is agreeable for pt to return to [facility] LT level of care. Pt will need ambulance transport back. TCC notified SW of this need. Case management consulted,-fulfilled. TCC will follow for pt readiness. TCC tasked LABORATORY DIRECTOR to make return referral. Sandra Martinez RN * Care Coordination - MARY Ambriz - 05/11/2024 1:57 PM EST TCC and SW rounded. Notes in chart indicate pt from an AL at [facility]. Pt also listed as having a LG SW called [facility], spoke with admission staff. Confirmed pt is not from [place], but is LTC at [facility], pt a bedhold. Admission staff indicated pt use to reside in [place] before coming to their facilityLTC. SW researched pt LG status. Located pt has an active guardianship through [facility]. On [facility] website, unable to locate a printable Letter of Guardianship. SW called [facility]. Spoke with courtesy car driver who confirmed pt has active case. Pt guardianship is held by a guardianship agency. Court will will e-mail SW the letter of guardianship and contact info. SW updated TCC. . follow up: Received e-mail copy of Letter og Guardianship from [facility]. Pt guardian is [employer] [facility] [employer]ianship [employer], not a specific person. The guardianship office can be contacted at . SW placed copy of the Letter of Guardianship on floor chart. SW following. . * Care Coordination - Sandra Martinez RN - 05/11/2024 1:42 PM EST TCC tried to call pt's legal guardian again, no answer. VM left. TCC will try again as time allows. * Care Coordination - Sandra Martinez RN - 05/11/2024 10:56 AM EST TCC called pt legal guardian to complete [place]. TCC left HIPAA VM at this time. TCC will try to attempt IA as time allows today. documented in this [facility]12-04-2024 Note* Care Coordination - Sandra Martinez RN - 05/13/2024 12:57 PM EST Per attending pt is ready for DC. Pt is able to return LTC. Bedhold. No covid needed. Discharge order placed. PADMINI complete. TCC asked SW to set up transport. RN aware. TCC updated legal guardian. Left VM at this time. TCC updated LTC via careport. TCC tasked LABORATORY DIRECTOR to transmit discharge orders to facility. Discharge date updated and milestones completed. Pt will be transported to [facility] LT today. [facility]12-04-2024 Note* Care Coordination - Sandra Martinez RN - 05/13/2024 12:57 PM EST Per attending pt is ready for DC. Pt is able to return LTC. Bedhold. No covid needed. Discharge order placed. PADMINI complete. TCC asked SW to set up transport. RN aware. TCC updated legal guardian. Left VM at this time. TCC updated LTC via careport. TCC tasked LABORATORY DIRECTOR to transmit discharge orders to facility. Discharge date updated and milestones completed. Pt will be transported to [facility] LT today. [facility]12-04-2024 Note* Care Coordination - MARY Ambriz - 05/13/2024 12:50 PM EST CRYSTAL late entry: Yesterday, Pastoral Care staff Kristin, spoke to SW. Kristin had met with pt. During the visit, pt shared with Kristin, she wanted to return to [facility], not [facility]. SW explained to Kristin, pt has a LG, whom TCC spoke to and has agreed to pt returning to [facility]. Pt would need to talk with LG about a possible move, once at [facility]. TCC sent secure chat to team, pt is medially ready for discharge to LTC [facility]. Pt needs transportation arranged. SW completed [facility], requesting COT transport at 3:30 today. Received response back from [employer], Stu Kinney will spanish moss picker pt at 3:30pm. Sent careport message to [facility] with time of spanish moss picker. SW called pt LG rep listed in chart. Updated LG in discharge. LG would like a copy of discharge paperwork e-mailed to [email or web address] CRYSTAL shared with LG the info Sports Recruiter Kristin had given SW about pt preferring to live at [facility]. LG was unaware pt not happy at [facility], pt has given positive feedback to LG. LG will explore this request. Met with pt, introduced self/role. RN had updated pt on discharge time. SW let pt know SW had spoken with LG about pt request to go to [facility]. Pt discussed she has only been at [facility] a couple of weeks. Pt feels limited with being able to freely walk around, can only go off the unit with an aide. Feels aides are not assisting with pt personal hygiene. Pt has a Direction Home ombudsmen, as ptfiled complaint about [facility]. SW encouraged pt to let LG and DH know of pt concerns. SW following. . [facility]: [facility], which was sent to facility 2 hours ago. Crystal called [facility], updated front desk officer staff pt spanish moss picker time today. . [id number] Note* Care Coordination - MARY Ambriz - 05/13/2024 12:50 PM EST CRYSTAL late entry: Yesterday, Pastoral Care staff Kristin, spoke to SW. Kristin had met with pt. During the visit, pt shared with Kristin, she wanted to return to [facility], not [facility]. SW explained to Kristin, pt has a LG, whom TCC spoke to and has agreed to pt returning to [facility]. Pt would need to talk with LG about a possible move, once at [facility]. TCC sent secure chat to team, [facility] needs [facility] arranged. SW completed [facility], requesting COT transport at 3:30 today. Received response back from [facility], Stu Kinney will spanish moss picker pt at 3:30pm. Sent careport message to [facility] with time of spanish moss picker. CRYSTAL called pt LG rep listed in chart. Updated LG in discharge. LG would like a copy of discharge paperwork e-mailed to [email or web address].. CRYSTAL shared with LG the info Pastor Foster had given SW about pt preferring to live at [facility]. LG was unaware pt not happy at [facility], pt has given positive feedback to LG. LG will explore this request. Met with pt, introduced self/role. RN had updated pt on discharge time. SW let pt know SW had spoken with LG about pt request to go to [facility]. Pt discussed she has only been at [facility] a couple of weeks. Pt feels limited with being able to freely walk around, can only go off the unit with an aide. Feels aides are not assisting with pt personal hygiene. Pt has a Direction Home [facility], as ptfiled complaint about [facility]. SW encouraged pt to let LG and DH know of pt concerns. SW following. . TAL follow up: Sw checked careport, facility had acknowledged pt discharge, which was sent to facility 2 hours ago. Crystal called [facility], updated front desk officer staff pt spanish moss picker time today. . [id number] Hospital Discharge instructions* Discharge Instr - PADMINI* Kirstin Bloom, SHANA - 05/13/2024 12:44 PM EST Images from the original note were not included. Continuity of Care Form Patient Name: Bharat Manzanares : 1965 Admit date: 05/10/2024 Discharge date: 05/13/2024 Code Status Order: Full Code Advance Directives: N Admitting Physician: Edward Morales MD PCP: DARELL Mckinnon NP Discharging Nurse: Kirstin Bloom Discharging Hospital Unit/Room#: E5-504/E5-504 A Discharging Unit Emergency Contact: Extended Emergency Contact Information Primary Emergency Contact: Samantha Liz Mobile Relation: Legal Guardian Secondary Emergency Contact: Chasity Ruiz Relation: Parent Past Surgical History: Past Surgical History: Procedure Laterality Date COLONOSCOPY DENTAL SURGERY 03/11/2020 extractions x4 DENTAL SURGERY N/A 03/11/2020 SURGICAL EXTRACTION OF TEETH 1, 2, 14, 16 performed by Mitch Mccall DDS at [facility] OR UPPER GASTROINTESTINAL ENDOSCOPY 12/01/2019 EGD BIOPSY performed by Olga Zeng MD at [facility] OR Immunization History: Immunization History Administered Date(s) Administered Influenza Whole 03/09/2014 Influenza, High-dose Seasonal, Quadrivalent, Preservative Free 03/21/2020 Influenza, Unspecified 04/30/2001, 04/22/2002, 03/21/2017, 04/04/2021 Influenza, injectable, quadrivalent, preservative free 03/26/2019 Influenza, intradermal, quadrivalent, preservative free 03/25/2018 Influenza, seasonal, intradermal, preservative free 03/10/2019 Novel eikasuave-[id number], preservative-free 07/14/2009 Pfizer SARS-CoV-2 Vaccination 06/19/2020, 07/10/2020, 03/06/2021 Pneumococcal Conjugate, Unspecified 05/21/2013 Pneumococcal Polysaccharide PPSV23 03/26/2019 Tdap 02/01/2017 Zoster, Recombinant 01/13/2020 Active Problems: Medical Problems Problem List * (Principal) Fever and chills Encounter for smoking cessation counseling Megaloblastic anemia due to vitamin B12 deficiency Acute bacterial sinusitis Chronic obstructive lung disease (HCC) Morbid obesity (HCC) Developmental academic disorder Myopia Dysphagia Essential hypertension Nuclear sclerotic cataract Obesity Mixed stress and urge urinary incontinence Parasomnia Polyneuropathy in diabetes (CMS/HCC) (HCC) Intellectual disability Overview Signed 03/26/2022 1:24 PM by Interface, Incoming Problems- [facility] Conversion Replacing deprecated diagnoses 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[facility]) Overview Signed 03/26/2022 1:24 PM by Interface, Incoming Problems- [facility] Conversion Overview: acoustic neuroma Onset Date: Jun 29, 2013 Attention deficit disorder with hyperactivity Astigmatism Low compliance bladder Gastroesophageal reflux disease Intractable migraine without aura Overview Signed 03/26/2022 1:24 PM by Interface, Incoming Problems- [facility] Conversion Overview: updated for 03/25 reg imo load Asthma Hyperlipidemia Infantile cerebral palsy ([facility]) ([facility]) Overview Signed 03/26/2022 1:24 PM by Interface, Incoming Problems- [facility] Conversion Overview: updated for 03/25 reg imo load Hearing loss Gingival and periodontal disease Pure hyperglyceridemia Need for prophylactic vaccination and inoculation against varicella Tobacco use disorder Infected dental caries Family history of colon cancer Simple chronic bronchitis ([facility]) Acquired hypothyroidism Type 2 diabetes mellitus without complication ([facility]) ([facility]) OAB (overactive bladder) Stress incontinence in female Medication refill H/O gastroesophageal reflux (GERD) Migraine Overview Signed 03/26/2022 1:24 PM by Interface, Incoming Problems- [facility] Conversion Neurology evaluation and management by Dr. Ashley at [facility]. Onset of migraine headaches without aura as a teenager about age 9 or 10 soon after her menarche. Laboratories in December 2016 included a normal HIV, electrolytes, BUN, creatinine, calcium, liver profile, lipid profile aside from an elevation of triglycerides at 199 and an elevated blood sugar/A1c at 121/6.3. Treated with Depakene, Zonisamide and Topamax in the past. Using abortive therapy, Zomig. Acoustic neuroma ([facility]) Overview Signed 03/26/2022 1:24 PM by Interface, Incoming Problems- [facility] Conversion Followed by the ENT specialist, Dr. Pitts. Treated with radiation therapy and serial MRI brain images. Isolation/Infection: Enhanced Contact Norovirus, Other - enteric Nurse Assessment: Last Vital Signs: BP 116/59 Pulse 58 Temp 36.2 C (97.2 F) (Temporal) Resp 16 Ht 5' 2 (1.575 m) Wt 280 lb (127 kg) SpO2 94% BMI 51.21 kg/m Last documented pain score (0-10 scale): Last Weight: Wt Readings from Last 1 Encounters: 05/10/24 280 lb (127 kg) Mental Status: PADMINI Patient Mental Status: oriented, alert, and MRDD IV Access: PADMINI IV Access: None Nursing Mobility/ADLs: Walking Minimal assistance Transfer Minimal assistance Bathing Minimal assistance Dressing Minimal assistance Toileting Minimal assistance Feeding Independent [employer] Driver Independent Med Delivery no Wound Care Documentation and Therapy: Elimination: Continence: Bowel: yes Bladder: yes Urinary Catheter: None Colostomy/Ileostomy/Ileal Conduit: None Date of Last BM: No intake or output data in the 24 hours ending 05/13/24 1244 I/O last 3 completed shifts: In: 190 (1.5 mL/kg) [P.O.:180; IV Piggyback:10] Out: - (0 mL/kg) Weight: 127 kg Safety Concerns: none Impairments/Disabilities: none Nutrition Therapy: Current Nutrition Therapy: Oral diet: general Routes of Feeding: oral Liquids: no restrictions Daily Fluid Restriction: no Last Modified Barium Swallow with Video (Video Swallowing Test): not done Treatments at the Time of Hospital Discharge: Respiratory Treatments: Oxygen Therapy: is not on home oxygen therapy. Ventilator: No ventilator support Rehab Therapies: nursing and aide Weight Bearing Status/Restrictions: no restriction Other Medical Equipment (for information only, NOT a DME order): bedside commode Other Treatments: Patient's personal belongings (please select all that are sent with patient): none RN SIGNATURE: MANAGEMENT/SOCIAL WORK SECTION Inpatient Status Date: 05/10/2024 Discharging to Facility/ Agency Name: [facility] Address: [address] [place] [address] Automatic Print Developer/Mattress Packer signature: ICIAN SECTION Name: Bharat Manzanares Prognosis: good Condition at Discharge: stable Rehab Potential (if transferring to Rehab): good Recommended Labs or Other Treatments After Discharge: PT/OT The individual is being admitted to a nursing facility directly from an [facility] or a unit of a [facility] that is not operated by or licensed by [place] under section 5119.14 or 5160-3-15.1 5 The individual requires the level of services provided by a nursing facility for the condition for which he or she was treated in the hospital and, Physician Certification: I certify the above information and transfer of Bharat Manzanares is necessary for the continuing treatment of the diagnosis listed and that she requires intermediate nursing care for greater than 30 days. Update Admission H&P: No change in H&P PHYSICIAN SIGNATURE: documented in this [facility]12-04-2024 History of Present illness Narrative* Kristin Persaud - 05/13/2024 8:30 AM EST Spiritual Care Note [facility] Palliative Care Patient Name:Bharat Manzanares Chief Complaint: Chief Complaint Patient presents with Diarrhea Pt from [facility], states they have an outbreak of Norovirus at the facility. Pt arrives with diarrhea for 1.5 days. Pt awake and alert on arrival. Pt also c/o knee pain chronic and a migraine. Reason for visit: Follow Up Services Provided To:care team Background and visit note: Talked with nurse's station about conversation had one day earlier regarding the need for patient to talk with her guardian regarding a move to another facility. Previous conversation took place yesterday afternoon too. Is there spiritual distress? YES Comment: Interventions: emotional support provided. Care Plan: build trust. Follow Up: when patient is able. Debriefed: with patients nurse, with auto porter team, and N/A. Kristin Persaud 05/13/24 * Eloy Corbett, OT - 05/12/2024 10:02 AM EST Images from the original note were not included. OCCUPATIONAL THERAPY [facility] Initial Evaluation Name/MRN: Bharat Manzanares ([id number]) Evaluation Date: 05/12/2024 Date of : 1965 Admission Date: 05/10/2024 10:03 AM Age: 59 y.o. Room/Bed: E5-504/E5504 A Discharge Recommendation: Assisted Facility Other: Continue to assess pending progress. Assessment IMPRESSION: Pt presented with fever and chills, found to have C-diff and Rhinovirus upon admission.PMHx-congestive heart failure, cerebral palsy, COPD, GERD, diabetes, hypertension, hyperlipidemia. Per pt she requires assistance at facility for ADL's and supervision for functional ambulation w/o device, pt stated at the facility they won't help me since they want me to be independent. Pt is currently SBA for transfers and functional ambulation w/o device. Pt is Max A for toilet and donning sock, Mod A for donning brief/pants, and SBA for UB ADL's. Pt does not try to perform toileting or LBdressing on own, pt stated I told you I can't do it since I have obesity. Recommending SNF at discharge to address functional deficits. Pt will continue to benefit from acute OT services while admitted to increase functional independence. Admitting Diagnosis: fever and chills, found to have C-diff and Rhinovirus Performance Deficits /Impairments: Decreased Functional Mobility, Decreased ADL status, Decreased Strength, Decreased Endurance, and Decreased Balance Prognosis: Fair Decision Making: Medium Complexity Subjective RN cleared for therapy. Pt sitting on BSC upon OT arrival; agreeable to OT eval. Pt perseverates onnot being allowed to walk around at facility, difficult to redirect.Per pt she had a brain injury at , but is high functioning. Pt sitting in recliner at end of session, with call light within reach, and RN notified. Pain: Pt denies any current pain. Past Medical History: Past Medical History: Diagnosis Date Acoustic neuroma (HCC) 11/28/2015 Overview: acoustic neuroma Onset Date: Jun 29, 2013 Allergic rhinitis Asthma Uncomplicated asthma Astigmatism 04/30/2016 Attention deficit disorder with hyperactivity 03/03/2018 Cerebral palsy ([facility]) CHF (congestive heart failure) ([facility]) ([facility]) Seen at [facility] Dr. 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 Diarrhea Dysphagia 07/09/2013 GERD (gastroesophageal reflux disease) Gingival and periodontal disease 07/09/2013 Hearing loss Hordeolum externum of left lower eyelid 05/03/2017 Hyperglycemia Hyperlipidemia Hypertension Hypoglycemia Hypothyroidism acquired Infantile cerebral palsy ([facility]) ([facility]) 07/09/2013 Overview: updated for 03/25 reg imo load Intractable migraine without aura 09/30/2001 Overview: updated for 03/25 reg imo load Irregular heartbeat Irregular heartbeat Learning disability Low compliance bladder 07/09/2013 Mental retardation 03/03/2018 Migraine Mixed stress and urge urinary incontinence 03/03/2018 Morbid obesity ([facility]) ([facility]) 07/09/2013 Myopia 04/30/2016 Neuropathy Nicotine dependence, cigarettes, with other nicotine-induced disorders Nuclear sclerotic cataract 04/30/2016 OAB (overactive bladder) 07/12/2015 Osteoarthritis Overactive bladder Parasomnia 07/09/2013 Polyneuropathy in diabetes ([facility]) ([facility]) 10/21/2002 Poor dentition Simple chronic [place]itis [place] ([facility]) 07/12/2015 Stress incontinence in female 07/12/2015 Thyroid disease Tobacco abuse Type 2 diabetes mellitus ([facility]) Urinary incontinence 07/09/2013 Wears glasses Past Surgical History: Past Surgical History: Procedure Laterality Date COLONOSCOPY DENTAL SURGERY 03/11/2020 extractions x4 DENTAL SURGERY N/A 03/11/2020 SURGICAL EXTRACTION OF TEETH 1, 2, 14, 16 performed by Mitch Mccall DDS at [facility] OR UPPER GASTROINTESTINAL ENDOSCOPY 12/01/2019 EGD BIOPSY performed by Olga Zeng MD at [facility] OR Admission Diagnosis: Patient Active Problem List Diagnosis Date Noted Fever and chills 05/10/2024 Encounter for smoking cessation counseling 07/08/2020 Tobacco use disorder 07/08/2020 Acute bacterial sinusitis 02/25/2020 Megaloblastic anemia due to vitamin B12 deficiency 01/14/2020 Need for prophylactic vaccination and inoculation against varicella 12/29/2019 Infected dental caries 12/29/2019 Family history of colon cancer 12/29/2019 Intellectual disability 11/17/2018 Medication refill 04/22/2018 Chronic obstructive lung disease (HCC) 03/03/2018 Morbid obesity ([facility]) 03/03/2018 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 Myopia 03/03/2018 Dysphagia 03/03/2018 Essential hypertension 03/03/2018 Nuclear sclerotic cataract 03/03/2018 Obesity 03/03/2018 Mixed stress and urge urinary incontinence 03/03/2018 Parasomnia 03/03/2018 Polyneuropathy in diabetes ([facility]) ([facility]) 03/03/2018 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[facility]) 03/03/2018 Attention deficit disorder with hyperactivity 03/03/2018 Astigmatism 03/03/2018 Low compliance bladder 03/03/2018 Gastroesophageal reflux disease 03/03/2018 Intractable migraine without aura 03/03/2018 Asthma 03/03/2018 Hyperlipidemia 03/03/2018 Infantile cerebral palsy ([facility]) ([facility]) 03/03/2018 Hearing loss 03/03/2018 Gingival and periodontal disease 03/03/2018 Pure hyperglyceridemia 03/03/2018 H/O gastroesophageal reflux (GERD) 07/04/2017 Migraine 03/27/2017 Acoustic neuroma ([facility]) 03/27/2017 Simple chronic bronchitis ([facility]) 07/12/2015 Acquired hypothyroidism 07/12/2015 Type 2 diabetes mellitus without complication ([facility]) ([facility]) 07/12/2015 OAB (overactive bladder) 07/12/2015 Stress incontinence in female 07/12/2015 Medical Precautions: Enhanced Contact Proper PPE donned/doffed in accordance with facility standards. Fall Risk: Cee Fall Risk Score: 45 (Medium Risk) Cee Fall Risk Score: 45 (High Risk) Precautions/Restrictions: N/A Family/Caregiver Present: none Overall Cognitive Status: Exceptions - Arousal/alertness: delayed responses to stimuli - Following commands: follows one step commands with increased time and follows one step commands with repetition - Attention span: difficulty attending to directions - Safety judgement: decreased awareness of need for safety - Problem solving: assistance required to correct errors made Overall Orientation Status: Oriented x4 Social/Functional History Patient admitted from [facility]. Assistive Equipment: none Prior Level of Function Prior Level of ADL Function: Required Assist Prior Level of Mobility: Required Assist; Device: None Prior Level of Transfers: Required Assist Objective ADLs LE Dressing: Mod Assist, Max Assist, Pt would not attempt to dagoberto socks, pt requires Max A, pt would not attempt to thread BLE's into brief, pt was able to pull brief over hips once standing. Toileting: Max Assist, Pt wouldn't attempt to wipe self, pt has functional ROM and strength to complete, pt is Max A to wipe posteriorly due to lack of motivation. Upper Extremity Assessment AROM: WFL PROM: WFL Strength: WFL Grossly 4/5 Vision: no visual deficits and wears glasses at all times and and are being used during the eval Hearing: normal Bed Mobility Not performed due to sitting on BSC at upon arrival and sitting in recliner at end of session. Transfers/Functional Mobility Sit to stand: SBA Stand to sit: SBA Standing balance: SBA Functional mobility: SBA Pt is currently SBA for transfers and functional ambulation w/o device. Pt appears steady, pt notedto furniture walk to steady self while ambulating within room. Device(s) used: None AM-PAC AM-PAC Inpatient Daily Activity Raw Score: 16 ADL Inpatient CMS G-Code Modifier: CK Plan Pt would benefit from skilled acute OT services to address Strengthening, Balance Training, Self-Care/ADL Training, Functional Mobility Training, Endurance Training, and Safety Education and Training. Frequency: 3x/week for 4 weeks Barriers: Impaired balance, Lower extremity weakness, Upper extremity weakness, and Decreased endurance Safety/Education Safety Safety Devices in place: call light within reach, left in chair, and nurse notified Restraints: No Education Education Given To: patient Education Provided: OT Role, Plan of Care, ADL Adaptive Strategies, and Discharge Recommendations Education Method: Verbal Barriers to Learning: Cognition Education Outcome: Verbalized Understanding and Continued Education Needed Goals Patient Stated Goal: To get better. Encounter Problems Encounter Problems (Active) Balance Patient will maintain dynamic standing balance for 10+ minutes with modified independence in order to demonstrate decreased risk of falling. Start: 05/12/24 Expected End: 06/09/24 Bathing Patient will utilize adaptive techniques to bathe body with SBA Start: 05/12/24 Expected End: 06/09/24 Dressing Upper Extremities Patient will complete upper body dressing with SBA Start: 05/12/24 Expected End: 06/09/24 Dressings Lower Extremities Patient will dress lower body with Min A Start: 05/12/24 Expected End: 06/09/24 Grooming Patient will complete daily grooming tasks with supervision Start: 05/12/24 Expected End: 06/09/24 Mobility Patient will demonstrate functional ambulation with Mod I Start: 05/12/24 Expected End: 06/09/24 Toileting Patient will complete toileting tasks at standard toilet with min assist. Start: 05/12/24 Expected End: 06/09/24 Transfers Patient will complete functional transfer with no assistive device with supervision in order to prepare for ambulation. Start: 05/12/24 Expected End: 06/09/24 Patient will perform bed mobility with supervision in order to improve independence and prepare forout of bed mobility. Start: 05/12/24 Expected End: 06/09/24 Therapy Time Individual Co-Treatment Co-Evaluation Time In 0919 Time Out 0933 Minutes 14 Eloy Corbett OT Patient's Occupational Therapy Plan of Care supervision is transferred to a [facility] Services Occupational Therapist. Goals and/or treatment plan was established in collaboration with patient/family/other representatives. * Francisco Brown DO - 05/12/2024 8:31 AM EST Hospitalist Progress Note 05/12/2024 Subjective: Admit Date: 05/10/2024 PCP: DARELL Mckinnon NP Room#: E5-504/E5-504 A BRIEF HOSPITAL COURSE: Per previous hospitalist: Bharat is a 59 y.o. female with past medical history below including congestive heart failure, cerebral palsy, COPD, GERD, diabetes, hypertension, hyperlipidemia who presented to the emergency department for evaluation of diarrhea. Patient is residing in an assisted living facility. She reported her symptoms began last night she endorsed upwards of 30 episodes of diarrhea since onset. She does endorse that her nursing facility is recently had a norovirus outbreak. She also reported feeling feverish, headache like when she has had a previous migraine, also some abdominal pain but denied any chest pain, shortness of breath or urinary symptoms. In the emergency department she was found to have sodium of 129, mild elevation in BUN, blood glucose of 211. She had no leukocytosis or anemia noted however did have elevated band present on differential. COVID and influenza, RSV were negative. Her urinalysis was positive for leukocyte esterase, nitrites, moderate amounts of bacteria however squamous epithelial cells present also. Chest x-ray did show some evidence of pulmonary vascular congestion with interstitial edema. Patient was requiringsome supplemental oxygen which at baseline she does not. Admitted for further evaluation and management. Interval History: Patient seen and examined. Chart reviewed. No overnight issues. Denies fevers, chills, chest pain, shortness of breath, abdominal pain, nausea or vomiting. She reports only 2 episodes of diarrhea yesterday 1 of which she was unable to make it to the bathroom in time and ended up having some on the floor. + Generalized weakness. Case and plan discussed with patient and bedside nurse. All questions answered. Adult diet Regular; 5 carb choices (75 gm/meal) 24HR INTAKE/OUTPUT: No intake or output data in the 24 hours ending 05/12/24 0831 Past Medical History: Past Medical History: Diagnosis Date Acoustic neuroma ([facility]) 11/28/2015 Overview: acoustic neuroma Onset Date: Jun 29, 2013 Allergic rhinitis Asthma Uncomplicated asthma Astigmatism 04/30/2016 Attention deficit disorder with hyperactivity 03/03/2018 Cerebral palsy ([facility]) CHF (congestive heart failure) ([facility]) ([facility]) Seen at [facility] Dr. 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 Diarrhea Dysphagia 07/09/2013 GERD (gastroesophageal reflux disease) Gingival and periodontal disease 07/09/2013 Hearing loss Hordeolum externum of left lower eyelid 05/03/2017 Hyperglycemia Hyperlipidemia Hypertension Hypoglycemia Hypothyroidism acquired Infantile cerebral palsy ([facility]) ([facility]) 07/09/2013 Overview: updated for 03/25 reg imo load Intractable migraine without aura 09/30/2001 Overview: updated for 03/25 reg imo load Irregular heartbeat Irregular heartbeat Learning disability Low compliance bladder 07/09/2013 Mental retardation 03/03/2018 Migraine Mixed stress and urge urinary incontinence 03/03/2018 Morbid obesity ([facility]) ([facility]) 07/09/2013 Myopia 04/30/2016 Neuropathy Nicotine dependence, cigarettes, with other nicotine-induced disorders Nuclear sclerotic cataract 04/30/2016 OAB (overactive bladder) 07/12/2015 Osteoarthritis Overactive bladder Parasomnia 07/09/2013 Polyneuropathy in diabetes ([facility]) ([facility]) 10/21/2002 Poor dentition Simple chronic bronchitis ([facility]) ([facility]) 07/12/2015 Stress incontinence in female 07/12/2015 Thyroid disease Tobacco abuse Type 2 diabetes mellitus ([facility]) Urinary incontinence 07/09/2013 Wears glasses LABS: CBC: Recent Labs 05/10/24 1047 05/11/24 0348 WBC 10.1 6.7 RBC 5.08 4.54 HGB 12.7 11.2* HCT 41.8 38.0 MCV 82.3 83.7 RDW 18.6* 18.5* PLT 203 229 BMP: Recent Labs 05/10/24 1047 05/11/24 0348 NA 129* 134* K 4.7 3.6 CL 98 98 CO2 23 30 BUN 19* 20* CREATININE 0.73 0.87 GLUCOSE 211* 167* CALCIUM 8.5 8.2* ANIONGAP 8 7 LIVER PROFILE: Recent Labs 05/10/24 1047 AST 20 ALT 17 BILITOT 0.5 ALKPHOS 121 PROT 7.5 PT/INR: No results for input(s): PROTIME, INR in the last 72 hours. CARDIAC ENZYMES: No results for input(s): TROPONINI in the last 72 hours. Procalcitonin: No results found for: PROCAL COVID-19 PCR: No results for input(s): COVID19 in the last 72 hours. Objective: Vitals: BP 102/57 (BP Location: Left arm, Patient Position: Sitting) Pulse 67 Temp 36.2 C (97.1F) (Temporal) Resp 16 Ht 5' 2 (1.575 m) Wt 280 lb (127 kg) SpO2 97% BMI 51.21 kg/m Pulse Ox: SpO2 Av.7 % Min: 93 % Max: 97 % Supplemental O2: O2 Flow Rate (L/min): 2 L/min Physical Exam Constitutional: General: She is not in acute distress. Comments: +morbid obesity HENT: Head: Normocephalic and atraumatic. Mouth/Throat: Mouth: Mucous membranes are moist. Eyes: Extraocular Movements: Extraocular movements intact. Conjunctiva/sclera: Conjunctivae normal. Cardiovascular: Rate and Rhythm: Normal rate and regular rhythm. Pulmonary: Effort: Pulmonary effort is normal. Breath sounds: Normal breath sounds. Abdominal: General: There is no distension. Palpations: Abdomen is soft. Tenderness: There is no abdominal tenderness. Musculoskeletal: General: No swelling. Skin: General: Skin is warm and dry. Neurological: Mental Status: She is alert and oriented to person, place, and time. Comments: +appears globally weak Psychiatric: Mood and Affect: Mood normal. Judgment: Judgment normal. Medications: Scheduled PRN apixaban, 5 mg, Oral, BID dapagliflozin, 10 mg, Oral, Daily famotidine, 20 mg, Oral, BID Or famotidine (Pepcid) 20 mg in sodium chloride (PF) 0.9 % 10 mL injection, 20 mg, IntraVENous, BID gabapentin, 300 mg, Oral, TID influenza, 0.5 mL, IntraMUSCular, Once insulin lispro, 0-12 Units, SubCUTAneous, TID WC And insulin lispro, 0-12 Units, SubCUTAneous, Nightly levothyroxine, 137 mcg, Oral, qAM AC lurasidone, 40 mg, Oral, Daily with breakfast PRN medications: acetaminophen OR acetaminophen, dextrose, dextrose, glucagon (rDNA), glucose, melatonin, ondansetron ODT OR ondansetron, polyethylene glycol (PEG) 3350 Continuous Assessment Plan Norovirus infection-supportive care and patient clinically improving; suspect she may be able to goback to her facility tomorrow Bacteriuria-asymptomatic Acute respiratory insufficiency-suspect atelectasis as patient does not move around much; on minimal amount of supplemental O2 Morbid obesity-lifestyle modifications Cerebral palsy and developmental delay DM type II-SSI Hyponatremia-mild C. difficile-suspect colonized; diarrhea improving without treatment and signs and symptoms more consistent with norovirus infection Anemia-normocytic, no signs of active bleeding Generalized weakness-PT/OT Advance Directive: Full Code Anticipated Discharge - Date -[place] facility 05/13 Extended Emergency Contact Information Primary Emergency Contact: Samantha Liz Mobile Relation: Legal Guardian Secondary Emergency Contact: Chasity Ruiz Relation: Parent Francisco Brown DO [facility] * Shara Donaldson 05/12/2024 7:56 AM EST Nutrition rescreen completed. Chart reviewed. Patient to be monitored and followed by the diet medical coding technician. Shara Sung DT * Frannie Dennis OT - 05/11/2024 12:57 PM EST Images from the original note were not included. OCCUPATIONAL THERAPY [facility] Name/MRN: Bharat Manzanares ([id number]) Date: 05/11/2024 Orders for OT eval and treat received. Attempted OT eval 2x this afternoon (1230 and 1300). Pt in bathroom with aides on both attempts, aides indicating this will be awhile and requesting therapy to return. Will reattempt as schedule allows Franine Dennis OT * Kendra Dangelo PT - 05/11/2024 10:53 AM EST Images from the original note were not included. PHYSICAL THERAPY [facility] Initial Evaluation Name/MRN: Bharat Manzanares ([id number]) Evaluation Date: 05/11/2024 Date of : 1965 Admission Date: 05/10/2024 10:03 AM Age: 59 y.o. Room[facility]Bed: [facility] A Discharge Recommendation: Assisted Facility Equipment Needed: No Assessment IMPRESSION: Bharat Manznaares was admitted on 05.10.24 with fever and chills. She has been found to have c-diff as well norovirus. She is TANGIRNAQ, and is slow to respond when asked questions. Quite talkative. She does not want to walk far, due to her c-diff and it being uncontrollable. Was willing to ambulate to the bathroom. Needed francisca care to be done for her, she cannot reach to wipe herself, which she says leads to recurrent UTI infections. She did not want to use a walker to ambulate to and from the bathroom. She did stay up in the chair at the end of the session. Recommend return to SNF with PTupon discharge. Admitting Diagnosis: fever and chills, found to have C-diff and Rhinovirus Prognosis: good Performance Deficits /Impairments: Increased Pain, Decreased Functional Mobility, Decreased ADL status, Decreased Strength, Decreased Endurance, Decreased High Level IADLs, Decreased Cognition, Decreased Coordination, and Decreased Posture Decision Making: Medium Complexity Subjective Pt. Was sitting at the edge of the bed at onset, wanted to get to the bathroom, sat in the chair atthe end of the session. She is not at high risk for falls. She does hold onto objects as she walks.She is fearful of ambulating very far due to her c-diff. She is wearing a brief, but is not in control of the BM's. She also has norovirus, and she just does not have much energy right now. Pain: abdominal pains Past Medical History: Past Medical History: Diagnosis Date Acoustic neuroma ([facility]) 11/28/2015 Overview: acoustic neuroma Onset Date: Jun 29, 2013 Allergic rhinitis Asthma Uncomplicated asthma Astigmatism 04/30/2016 Attention deficit disorder with hyperactivity 03/03/2018 Cerebral palsy ([facility]) CHF (congestive heart failure) ([facility]) ([facility]) Seen at [facility] Dr. 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 Diarrhea Dysphagia 07/09/2013 GERD (gastroesophageal reflux disease) Gingival and periodontal disease 07/09/2013 Hearing loss Hordeolum externum of left lower eyelid 05/03/2017 Hyperglycemia Hyperlipidemia Hypertension Hypoglycemia Hypothyroidism acquired Infantile cerebral palsy ([facility]) ([facility]) 07/09/2013 Overview: updated for 03/25 reg imo load Intractable migraine without aura 09/30/2001 Overview: updated for 03/25 reg imo load Irregular heartbeat Irregular heartbeat Learning disability Low compliance bladder 07/09/2013 Mental retardation 03/03/2018 Migraine Mixed stress and urge urinary incontinence 03/03/2018 Morbid obesity ([facility]) ([facility]) 07/09/2013 Myopia 04/30/2016 Neuropathy Nicotine dependence, cigarettes, with other nicotine-induced disorders Nuclear sclerotic cataract 04/30/2016 OAB (overactive bladder) 07/12/2015 Osteoarthritis Overactive bladder Parasomnia 07/09/2013 Polyneuropathy in diabetes ([facility]) ([facility]) 10/21/2002 Poor dentition Simple chronic bronchitis ([facility]) ([facility]) 07/12/2015 Stress incontinence in female 07/12/2015 Thyroid disease Tobacco abuse Type 2 diabetes mellitus ([facility]) Urinary incontinence 07/09/2013 Wears glasses Past Surgical History: Past Surgical History: Procedure Laterality Date COLONOSCOPY DENTAL SURGERY 03/11/2020 extractions x4 DENTAL SURGERY N/A 03/11/2020 SURGICAL EXTRACTION OF TEETH 1, 2, 14, 16 performed by Mitch Mccall DDS at [facility] OR UPPER GASTROINTESTINAL ENDOSCOPY 12/01/2019 EGD BIOPSY performed by Olga Zeng MD at [facility] OR Admission Diagnosis: Patient Active Problem List Diagnosis Date Noted Fever and chills 05/10/2024 Encounter for smoking cessation counseling 07/08/2020 Tobacco use disorder 07/08/2020 Acute bacterial sinusitis 02/25/2020 Megaloblastic anemia due to vitamin B12 deficiency 01/14/2020 Need for prophylactic vaccination and inoculation against varicella 12/29/2019 Infected dental caries 12/29/2019 Family history of colon cancer 12/29/2019 Intellectual disability 11/17/2018 Medication refill 04/22/2018 Chronic obstructive lung disease (HCC) 03/03/2018 Morbid obesity ([facility]) 03/03/2018 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 Myopia 03/03/2018 Dysphagia 03/03/2018 Essential hypertension 03/03/2018 Nuclear sclerotic cataract 03/03/2018 Obesity 03/03/2018 Mixed stress and urge urinary incontinence 03/03/2018 Parasomnia 03/03/2018 Polyneuropathy in diabetes ([facility]) ([facility]) 03/03/2018 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[facility]) 03/03/2018 Attention deficit disorder with hyperactivity 03/03/2018 Astigmatism 03/03/2018 Low compliance bladder 03/03/2018 Gastroesophageal reflux disease 03/03/2018 Intractable migraine without aura 03/03/2018 Asthma 03/03/2018 Hyperlipidemia 03/03/2018 Infantile cerebral palsy ([facility]) ([facility]) 03/03/2018 Hearing loss 03/03/2018 Gingival and periodontal disease 03/03/2018 Pure hyperglyceridemia 03/03/2018 H/O gastroesophageal reflux (GERD) 07/04/2017 Migraine 03/27/2017 Acoustic neuroma ([facility]) 03/27/2017 Simple chronic bronchitis ([facility]) 07/12/2015 Acquired hypothyroidism 07/12/2015 Type 2 diabetes mellitus without complication (CMS/HCC) (HCC) 07/12/2015 OAB (overactive bladder) 07/12/2015 Stress incontinence in female 07/12/2015 Medical Precautions: Enhanced Contact Proper PPE donned/doffed in accordance with facility standards. Fall Risk: Cee Fall Risk Score: 45 (Medium Risk) Cee Fall Risk Score: 45 (High Risk) Precautions/Restrictions: Other Position/Activity Restriction: frequent BM's, fatigue Fall Precautions Family/Caregiver Present: none Overall Cognitive Status: slow to respond to questions, slowed speech Overall Orientation Status: Oriented x4 Vision: not assessed this session Hearing: TANGIRNAQ Social/Functional History Patient admitted from [facility]. Assistive Equipment: none Prior Level of Function Prior Level of ADL Function: Required Assist (unable to perform her own francisca care....needs assist to get clean) Prior Level of Mobility: Required Assist; Device: None but she did hold onto objects as she passed them. Prior Level of Transfers: Required Assist Objective Lower Extremity Assessment AROM: WFL PROM: WFL Strength: Exceptions: grossly 4-/5 in LE's Sensation: Impaired: polyneuropathy, Balance: Balance During Session: Posture: fair Sitting - Static: Modified Independent Sitting - Dynamic: Modified Independent Standing - Static: SBA Standing - Dynamic: SBA Bed Mobility: Supine to sit: Supervision Sit to supine: Supervision Transfers Sit to stand: Supervision Stand to sit: Supervision Ambulation Ambulation 1 Assistive device(s) used: None Assist level: Supervision Distance (ft): 25' x 2 with bathrooming between Quality of gait: antalgic, uneven step length, slow marija Coordination: Impaired: She complains of right knee with chronic pain. Sensation: Impaired: polyneuropathy Outcome Measures AM-PAC How much HELP from another person do you currently need Turning from your back to your side while in a flat bed without using bedrails?: None Moving from lying on your back to sitting on the side of a flat bed without using bedrails?: None Moving to and from a bed to a chair (including a wheelchair)?: A Little Standing up from a chair using your arms (wheelchair or bedside chair)?: A Little Walking in a hospital room?: A Little Stair climbing assessed?: No AM-PAC Inpatient Mobility Raw Score (No Stairs) : 17 [facility] Score: Walked 25 ft or more (i.e. walked outside of room) Plan Pt would benefit from skilled acute PT services to address Strengthening, Gait Training, FunctionalMobility Training, and Endurance Training. Frequency: 3x/week for 2 weeks Barriers: Pain, Impaired balance, Lower extremity weakness, Decreased endurance, Cognitive deficit,Decreased sensation, and Incontinence of bowel Safety/Education Safety Safety Devices in place: All fall risk precautions in place, call light within reach, left in bed, left in chair, gait belt, and nurse notified Restraints: No Education Education Given To: patient Education Provided: PT Role, Gait Training, Precautions, Transfer Training, and Discharge Recommendations Education Method: Verbal Barriers to Learning: Cognition Education Outcome: Continued Education Needed Goals Patient Stated Goal: To get more assist at the [facility] for things that she cannot do, like herperi-care.(She cannot reach to get herself clean) Encounter Problems Encounter Problems (Active) Mobility Patient will ambulate 150 feet with supervision and least restrictive device in order to improve safety and independence with mobility. Start: 05/11/24 Expected End: 05/25/24 Misc: Pt will participate with therapeutic exercises 80% of the time. Start: 05/11/24 Expected End: 05/25/24 Transfers Patient will perform bed mobility with modified independence in order to improve independence and prepare for out of bed mobility. Start: 05/11/24 Expected End: 05/25/24 Patient will complete functional transfer with one railing with supervision in order to prepare forambulation. Start: 05/11/24 Expected End: 05/25/24 Therapy Time Individual Co-Treatment Co-Evaluation Time In 0945 Time Out 1015 Minutes 30 Timed Code Treatment Minutes: 15 Minutes Kendra Dangelo PT Patient's Physical Therapy Plan of Care supervision is transferred to a [facility] Therapy Services Physical Therapist. Goals and/or treatment plan was established in collaboration with patient/family/other representatives. * Johana Berg MD - 05/11/2024 8:59 AM EST Hospitalist Progress Note 05/11/2024 8:59 AM Subjective: Admit Date: 05/10/2024 PCP: Vasiliy Griffin APRN - ACOUSTICS TEACHER Bharat is a 59 y.o. female with past medical history below including congestive heart failure, cerebral palsy, COPD, GERD, diabetes, hypertension, hyperlipidemia who presented to the emergency department for evaluation of diarrhea. Patient is residing in an assisted living facility. She reported her symptoms began last night she endorsed upwards of 30 episodes of diarrhea since onset. She does endorse that her nursing facility is recently had a norovirus outbreak. She also reported feeling feverish, headache like when she has had a previous migraine, also some abdominal pain but denied any chest pain, shortness of breath or urinary symptoms. In the emergency department she was found to have sodium of 129, mild elevation in BUN, blood glucose of 211. She had no leukocytosis or anemia noted however did have elevated band present on differential. COVID and influenza, RSV were negative. Her urinalysis was positive for leukocyte esterase, nitrites, moderate amounts of bacteria however squamous epithelial cells present also. Chest x-ray did show some evidence of pulmonary vascular congestion with interstitial edema. Patient was requiringsome supplemental oxygen which at baseline she does not. Admitted for further evaluation and management. On our evaluation patient is resting in room, on the ED a card with no acute distress. She denies any abdominal pain. She is actually requesting to eat at this time as she says she is hungry. She does endorse to us that she has previously been on antibiotic therapy secondary to a toe infection. Otherwise she is not able to elaborate on sick contacts. Reports does have a guardian, paperwork list patient is DNR CC however she says she wants to be a full code as she is not ready to , looking tochange to DO NOT RESUSCITATE in the future. Interval History: feeling better Less stools No CP Adult diet Regular; 5 carb choices (75 gm/meal) @IODETAILS@ @WDOL2QIWCRT@ Medications: apixaban, 5 mg, Oral, BID dapagliflozin, 10 mg, Oral, Daily famotidine, 20 mg, Oral, BID Or famotidine (Pepcid) 20 mg in sodium chloride (PF) 0.9 % 10 mL injection, 20 mg, IntraVENous, BID gabapentin, 300 mg, Oral, TID influenza, 0.5 mL, IntraMUSCular, Once insulin lispro, 0-12 Units, SubCUTAneous, TID WC And insulin lispro, 0-12 Units, SubCUTAneous, Nightly levothyroxine, 137 mcg, Oral, qAM AC lurasidone, 40 mg, Oral, Daily with breakfast vancomycin, 125 mg, Oral, 4 times per day Recent Labs 05/10/24 1047 05/11/24 0348 WBC 10.1 6.7 HGB 12.7 11.2* PLT 203 229 Recent Labs 05/10/24 1047 05/11/24 0348 NA 129* 134* K 4.7 3.6 CL 98 98 CO2 23 30 BUN 19* 20* CREATININE 0.73 0.87 GLUCOSE 211* 167* Recent Labs 05/10/24 1047 AST 20 ALT 17 BILITOT 0.5 ALKPHOS 121 No results found for: TRIG, HDL, LDLCALC, CHOL No results for input(s): INR in the last 72 hours. No results for input(s): CKTOTAL, CKMB, TROPONINI in the last 72 hours. Objective: Vitals: BP 130/59 (BP Location: Left arm, Patient Position: Sitting) Pulse 77 Temp 37.1 C (98.8F) (Temporal) Resp 16 Ht 5' 2 (1.575 m) Wt 280 lb (127 kg) SpO2 92% BMI 51.21 kg/m Pulse Ox: SpO2 Av.4 % Min: 88 % Max: 98 % Supplemental O2: O2 Flow Rate (L/min): 4 L/min General appearance: Alert and cooperative with exam Lungs: clear to auscultation bilaterally Heart: regular rate and rhythm Abdomen: soft, non-tender; bowel sounds normal; no masses, no organomegaly Extremities: extremities normal, atraumatic, no cyanosis or edema Neurologic: No obvious focal neurologic deficits. Assessment Principal Problem: Fever and chills Acute, acute on chronic, unstable/uncontrolled chronic problems/diagnoses: Norovirus infection Bacteriuria-asymptomatic Hyponatremia Acute respiratory insufficiency-does not require home O2, hypoxia noted in emergency department, resolved with supplemental oxygen Fever of unknown origin Stable chronic problems affecting care, new non-acute diagnoses: Congestive heart failure COPD Cerebral palsy Developmental delay Hypertension Hypothyroidism Diabetes mellitus type 2 History of previous tobacco use Leukemia in remission Peripheral vascular disease Cont supportive care for norovirus PT/OT-- pt resides at SNF Pos cdiff toxin, neg EIA-- doubt active infection as norovirus more likely Cont home meds Anticipated Discharge - Date - 05/13 - Location - Skilled Facility - Pending the following - course Total time spent (which include face to face and non face to face encounters) : 36 minutes See orders, continue POC Advance Directive: Full Code Johana Berg MD, [facility] Hospitalist documented in this [facility]12-04-2024 Plan of care note* Care Plan - Davdi Esquivel RN - 05/13/2024 2:41 AM EST Problem: Knowledge Deficit Goal: Patient/family/caregiver demonstrates understanding of disease process, treatment plan, medications, and discharge instructions Outcome: Progressing Problem: Potential for Compromised Skin Integrity Goal: Skin Integrity is Maintained or Improved Outcome: [facility]ing [id number]* Care Coordination - MARY Ambriz - 05/12/2024 2:18 PM EST TCC updated SW, LG is in agreement for pt to return to [facility] when medically ready. Will require transportation at discharge. SW completed Will Call for COT transport in [place]. Will Call is good until 05/15. . [id number]* Care Coordination - MARY Ambriz - 05/12/2024 2:18 PM EST TCC updated SW, LG is in agreement for pt to return to [facility] when medically ready. Will require transportation at discharge. SW completed Will Call for COT transport in [place]. Will Call is good until 05/15. . [place] [id number] Note* Care Coordination - Felicia Donaldson 05/12/2024 10:40 AM EST Referral placed to [facility] Return - [facility] via [facility] per TCC request. Await review and response regarding ability to accept. TCC notified. Electronically signed by [facility] Felicia Hernandezh [facility]12-03-2024 Note* Care Coordination - [facility] Terell - 05/12/2024 10:40 AM EST Referral placed to [facility] Return - [facility] [place] via [facility] per TCC request. Await review and response regarding ability to accept. TCC notified. Electronically signed by [facility] Felicia Hernandezh [facility]12-03-2024 NoteReferral placed to [facility] Return - [facility] via [facility] per TCC request. Await review and response regarding ability to accept. TCC notified. Electronically signed by [facility]12-03-2024 Note* Care Coordination - Sandra Martinez RN - 05/12/2024 10:15 AM EST Care Managment Initial Assessment Date: 05/12/2024 Patient Name: Bharat Manzanares : 1965 Patient Information Source of Information: Patient Unit Nurse Name/Contact Information: Samantha Liz legal guardian [phone] Cognition/Language: Permission given to speak with patient new accounts representative/caregiver as indicated: Confirmation of Payer with patient/family: Yes Payer Name: caresource medicare : No Confirmation of Primary Care Physician: Confirmed PCP Name: Vasiliy Griffin ACOUSTICS TEACHER Seen in last 2 years?: Yes Primary Caregiver: Other (Comment) (LTC) If assistance needed, confirmed caregiver ready, willing and able to care for patient at discharge: Confirmed with: Living Arrangements Current Residence: Number of Floors Number of Entry Steps: Bed/Bath Levels: Facility: [facility] Home[facility] Facility Name: [facility] Plan to Return: Yes Lives with: Support Systems: Family members Activities of Daily Living Ambulation: Assistance Bathing/Dressing: Assistance Elimination/Continence/Toileting: Assistance Feeding: Assistance Who Assists with Activities of Daily Living: [facility] Instrumental Activities of Daily Living Prescription Coverage: Yes Pharmacy Used: [facility] Medication Management: Medication dispenser Who assists with medication securing and setup?: LTC Transportation/Shopping: Assistance Provider Transportation/Shopping Assistance Provider Name: ambulance transport Transportation Mode: Needs Assistance with Transportation at Discharge: Yes, Comments (ambulance transport back to [facility]) Meal Preparation: Assistance Provider Laundry/Cleaning: Assistance Provider Finances/Bill Paying: Assistance Provider Communication: Independent Types of Care Services/Equipment Utilized Care Services: Dialysis Type: NA Durable Medical Equipment: Wheelchair (standard or power), Hospital Bed DME Provider: [facility] Patient's Goal/Discharge Plan Patient expects to be discharged to: return to [facility] Discharge Planning Actions: Continue to follow, Assisted Facility referral indicated [place] of choice: [place] of choice discussed Patient's Choice Rights and [employer] and Collaborative Relationships Disclosed as Indicated for Post-Acute Care: Yes Interdisciplinary Team Engagement: Social Work Referral for: Transportation Assistance Additional Information: TCC spoke to pt legal guardian for [place]. Pt admitted with fever and chills. Pt positive for C-DIFF and norovirus. Pt is on 2 L of O2 NC here, none at baseline. Pt may have to go back to LTC with O2. Urine culture positive. Legal guardian is agreeable for pt to return to [facility] level of care. Pt will need ambulance transport back. TCC notified SW of this need. Case management consulted,-fulfilled. TCC will follow for pt readiness. TCC tasked LABORATORY DIRECTOR to make return referral. Sandra Martinez RN [facility]12-03-2024 Note* Care Coordination - Sandra Martinez RN - 05/12/2024 10:15 AM EST Care Managment Initial Assessment Date: 05/12/2024 Patient Name: Bharat Manzanares : 1965 Patient Information Source of Information: Patient Unit Nurse Name/Contact Information: Samantha Liz legal guardian [phone] Cognition/Language: Permission given to speak with patient new accounts representative/caregiver as indicated: Confirmation of Payer with patient/family: Yes Payer Name: vinicio medicare : No Confirmation of Primary Care Physician: Confirmed PCP Name: Vasiliy Griffin ACOUSTICS TEACHER Seen in last 2 years?: Yes Primary Caregiver: Other (Comment) (LTC) If assistance needed, confirmed caregiver ready, willing and able to care for patient at discharge: Confirmed with: Living Arrangements Current Residence: Number of Floors Number of Entry Steps: Bed/Bath Levels: Facility: Group Home[facility] Facility Name: [facility] Plan to Return: Yes Lives with: Support Systems: Family members Activities of Daily Living Ambulation: Assistance Bathing/Dressing: Assistance Elimination/Continence/Toileting: Assistance Feeding: Assistance Who Assists with Activities of Daily Living: [facility] Instrumental Activities of Daily Living Prescription Coverage: Yes Pharmacy Used: [facility] Medication Management: Medication dispenser Who assists with medication securing and setup?: LTC Transportation/Shopping: Assistance Provider Transportation/Shopping Assistance Provider Name: ambulance transport Transportation Mode: Needs Assistance with Transportation at Discharge: Yes, Comments (ambulance transport back to [facility]) Meal Preparation: Assistance Provider Laundry/Cleaning: Assistance Provider Finances/Bill Paying: Assistance Provider Communication: Independent Types of Care Services/Equipment Utilized Care Services: Dialysis Type: NA Durable Medical Equipment: Wheelchair (standard or power), Hospital Bed DME Provider: LTC Patient's Goal/Discharge Plan Patient expects to be discharged to: return to [facility] Discharge Planning Actions: Continue to follow, Assisted Facility referral indicated [place] of choice[place] choice discussed Patient's Choice Rights and [employer] and Collaborative Relationships Disclosed as Indicated for Post-Acute Care: Yes Interdisciplinary Team Engagement: Social Work Referral for: Transportation Assistance Additional Information: TCC spoke to pt legal guardian for [place]. Pt admitted with fever and chills. Pt positive for C-DIFF and norovirus. Pt is on 2 L of O2 NC here, none at baseline. Pt may have to go back to LTC with O2. Urine culture positive. Legal guardian is agreeable for pt to return to [facility] level of care. Pt will need ambulance transport back. TCC notified SW of this need. Case management consulted,-fulfilled. TCC will follow for pt readiness. TCC tasked LABORATORY DIRECTOR to make return referral. Sandra Martinez RN [facility]12-03-2024 NoteOCCUPATIONAL THERAPY [facility] Initial Evaluation Name/MRN: Bharat Manzanares ([id number]) Evaluation Date: 05/12/2024 Date of : 1965 Admission Date: 05/10/2024 10:03 AM Age: 59 y.o. Room/Bed: E5-504/E5-504 A Discharge Recommendation: Assisted Facility Other: Continue to assess pending progress. Assessment IMPRESSION: Pt presented with fever and chills, found to have C-diff and Rhinovirus upon admission. PMHx-congestive heart failure, cerebral palsy, COPD, GERD, diabetes, hypertension, hyperlipidemia. Per pt she requires assistance at facility for ADL's and supervision for functional ambulation w/o device, pt stated at the facility they won't help me since they want me to be independent. Pt is currently SBA for transfers and functional ambulation w/o device. Pt is Max A for toilet and donning sock, Mod A for donning brief/pants, and SBA for UB ADL's. Pt does not try to perform toileting or LB dressing on own, pt stated I told you I can't do it since I have obesity. Recommending SNF at discharge to address functional deficits. Pt will continue to benefit from acute OT services while admitted to increase functional independence. Admitting Diagnosis: fever and chills, found to have C-diff and Rhinovirus Performance Deficits /Impairments: Decreased Functional Mobility, Decreased ADL status, Decreased Strength, Decreased Endurance, and Decreased Balance Prognosis: Fair Decision Making: Medium Complexity Subjective RN cleared for therapy. Pt sitting on BSC upon OT arrival; agreeable to OT eval. Pt perseverates on not being allowed to walk around at facility, difficult to redirect.Per pt she had a brain injury at , but is high functioning. Pt sitting in recliner at end of session, with call light within reach, and RN notified. Pain: Pt denies any current pain. Past Medical History: Past Medical History: Diagnosis Date Acoustic neuroma ([facility]) 11/28/2015 Overview: acoustic neuroma Onset Date: Jun 29, 2013 Allergic rhinitis Asthma Uncomplicated asthma Astigmatism 04/30/2016 Attention deficit disorder with hyperactivity 03/03/2018 Cerebral palsy ([facility]) CHF (congestive heart failure) ([facility]) ([facility]) Seen at [facility] Dr. 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 Diarrhea Dysphagia 07/09/2013 GERD (gastroesophageal reflux disease) Gingival and periodontal disease 07/09/2013 Hearing loss Hordeolum externum of left lower eyelid 05/03/2017 Hyperglycemia Hyperlipidemia Hypertension Hypoglycemia Hypothyroidism acquired Infantile cerebral palsy ([facility]) ([facility]) 07/09/2013 Overview: updated for 03/25 reg imo load Intractable migraine without aura 09/30/2001 Overview: updated for 03/25 reg imo load Irregular heartbeat Irregular heartbeat Learning disability Low compliance bladder 07/09/2013 Mental retardation 03/03/2018 Migraine Mixed stress and urge urinary incontinence 03/03/2018 Morbid obesity ([facility]) ([facility]) 07/09/2013 Myopia 04/30/2016 Neuropathy Nicotine dependence, cigarettes, with other nicotine-induced disorders Nuclear sclerotic cataract 04/30/2016 OAB (overactive bladder) 07/12/2015 Osteoarthritis Overactive bladder Parasomnia 07/09/2013 Polyneuropathy in diabetes ([facility]) ([facility]) 10/21/2002 Poor dentition Simple chronic bronchitis ([facility]) ([facility]) 07/12/2015 Stress incontinence in female 07/12/2015 Thyroid disease Tobacco abuse Type 2 diabetes mellitus ([facility]) Urinary incontinence 07/09/2013 Wears glasses Past Surgical History: Past Surgical History: Procedure Laterality Date COLONOSCOPY DENTAL SURGERY 03/11/2020 extractions x4 DENTAL SURGERY N/A 03/11/2020 SURGICAL EXTRACTION OF TEETH 1, 2, 14, 16 performed by Mitch Mccall DDS at [facility] OR UPPER GASTROINTESTINAL ENDOSCOPY 12/01/2019 EGD BIOPSY performed by Olga Zeng MD at [facility] OR Admission Diagnosis: Patient Active Problem List Diagnosis Date Noted Fever and chills 05/10/2024 Encounter for smoking cessation counseling 07/08/2020 Tobacco use disorder 07/08/2020 Acute bacterial sinusitis 02/25/2020 Megaloblastic anemia due to vitamin B12 deficiency 01/14/2020 Need for prophylactic vaccination and inoculation against varicella 12/29/2019 Infected dental caries 12/29/2019 Family history of colon cancer 12/29/2019 Intellectual disability 11/17/2018 Medication refill 04/22/2018 Chronic obstructive lung disease (HCC) 03/03/2018 Morbid obesity (HCC) 03/03/2018 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 female with past medical history below including congestive heart failure, cerebral palsy, COPD, GERD, diabetes, hypertension, hyperlipidemia who presented to the emergency department for evaluation of diarrhea. Patient is residing in an assisted living facility. She reported her symptoms began last night she endorsed upwards of 30 episodes of diarrhea since onset. She does endorse that her nursing facility is recently had a norovirus outbreak. She also reported feeling feverish, headache like when she has had a previous migraine, also some abdominal pain but denied any chest pain, shortness of breath or urinary symptoms. In the emergency department she was found to have sodium of 129, mild elevation in BUN, blood glucose of 211. She had no leukocytosis or anemia noted however did have elevated band present on differential. COVID and influenza, RSV were negative. Her urinalysis was positive for leukocyte esterase, nitrites, moderate amounts of bacteria however squamous epithelial cells present also. Chest x-ray did show some evidence of pulmonary vascular congestion with interstitial edema. Patient was requiring some supplemental oxygen which at baseline she does not. Admitted for further evaluation and management. Interval History: Patient seen and examined. Chart reviewed. No overnight issues. Denies fevers, chills, chest pain, shortness of breath, abdominal pain, nausea or vomiting. She reports only 2 episodes of diarrhea yesterday 1 of which she was unable to make it to the bathroom in time and ended up having some on the floor. + Generalized weakness. Case and plan discussed with patient and bedside nurse. All questions answered. Adult diet Regular; 5 carb choices (75 gm/meal) 24HR INTAKE/OUTPUT: No intake or output data in the 24 hours ending 05/12/24 0831 Past Medical History: Past Medical History: Diagnosis Date Acoustic neuroma ([facility]) 11/28/2015 Overview: acoustic neuroma Onset Date: Jun 29, 2013 Allergic rhinitis Asthma Uncomplicated asthma Astigmatism 04/30/2016 Attention deficit disorder with hyperactivity 03/03/2018 Cerebral palsy ([facility]) CHF (congestive heart failure) ([facility]) ([facility]) Seen at [facility] Dr. 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 Diarrhea Dysphagia 07/09/2013 GERD (gastroesophageal reflux disease) Gingival and periodontal disease 07/09/2013 Hearing loss Hordeolum externum of left lower eyelid 05/03/2017 Hyperglycemia Hyperlipidemia Hypertension Hypoglycemia Hypothyroidism acquired Infantile cerebral palsy ([facility]) ([facility]) 07/09/2013 Overview: updated for 03/25 reg imo load Intractable migraine without aura 09/30/2001 Overview: updated for 03/25 reg imo load Irregular heartbeat Irregular heartbeat Learning disability Low compliance bladder 07/09/2013 Mental retardation 03/03/2018 Migraine Mixed stress and urge urinary incontinence 03/03/2018 Morbid obesity ([facility]) ([facility]) 07/09/2013 Myopia 04/30/2016 Neuropathy Nicotine dependence, cigarettes, with other nicotine-induced disorders Nuclear sclerotic cataract 04/30/2016 OAB (overactive bladder) 07/12/2015 Osteoarthritis Overactive bladder Parasomnia 07/09/2013 Polyneuropathy in diabetes ([facility]) ([facility]) 10/21/2002 Poor dentition Simple chronic bronchitis ([facility]) ([facility]) 07/12/2015 Stress incontinence in female 07/12/2015 Thyroid disease Tobacco abuse Type 2 diabetes mellitus (HCC) Urinary incontinence 07/09/2013 Wears glasses LABS: CBC: Recent Labs 05/10/24 1047 05/11/24 0348 WBC 10.1 6.7 RBC 5.08 4.54 HGB 12.7 11.2* HCT 41.8 38.0 MCV 82.3 83.7 RDW 18.6* 18.5* PLT 203 229 BMP: Recent Labs 05/10/24 1047 05/11/24 0348 NA 129* 134* K 4.7 3.6 CL 98 98 CO2 23 30 BUN 19* 20* CREATININE 0.73 0.87 GLUCOSE 211* 167* CALCIUM 8.5 8.2* ANIONGAP 8 7 LIVER PROFILE: Recent Labs 05/10/24 1047 AST 20 ALT 17 BILITOT 0.5 ALKPHOS 121 PROT 7.5 PT/INR: No results for input(s): PROTIME, INR in the last 72 hours. CARDIAC ENZYMES: No results for input(s): TROPONINI in the last 72 hours. Procalcitonin: No results found for: PROCAL COVID-19 PCR: No results for input(s): COVID19 in the last 72 hours. Objective: Vitals: BP 102/57 (BP Location: Left arm, Patient Position: Sitting) Pulse 67 Temp 36.2 ?C (97.1 ?F) (Temporal) Resp 16 Ht 5' 2 (1.575 m) Wt 280 lb (127 kg) SpO2 97% BMI 51.21 kg/m? Pulse Ox: SpO2 Av.7 % Min: 93 % Max: 97 % Supplemental O2: O2 Flow Rate (L/min): 2 L/min Physical Exam Constitutional: General: She is not in acute distress. Comments: +morbid obesity HENT: Head: Nor (more content not included)...[facility]12-02-2024 Note* Care Coordination - Shweta Jeffries, MARY - 05/11/2024 1:57 PM EST TCC and SW rounded. Notes in chart indicate pt from an AL at [facility]. Pt also listed as having a LG SW called [facility], spoke with admission staff. Confirmed pt is not from AL, but is LTC at [facility], pt a bedhold. Admission staff indicated pt use to reside in [place] before coming to their facilityLTC. CRYSTAL researched pt LG status. Located pt has an active guardianship through [facility]. [facility], unable to locate a printable Letter of Guardianship. CRYSTAL called [facility]. Spoke with courtesy car driver who confirmed pt has active case. Pt guardianship is held by a guardianship agency. Court will will e-mail CRYSTAL the letter of guardianship and contact info. CRYSTAL updated TCC. . TAL follow up: Received e-mail copy of Letter og Guardianship from [facility]. Pt guardian is [employer] [facility] [employer], not a specific person. The guardianship office can be contacted at [phone]. CRYSTAL placed copy of the Letter of Guardianship on floor chart. CRYSTAL following. . [id number] Note* Care Coordination - MARY Ambriz - 05/11/2024 1:57 PM EST TCC and SW rounded. Notes in chart indicate pt from an AL at [facility]. Pt also listed as having a LG SW called [facility], spoke with admission staff. Confirmed pt is not from AL, but is LTC at [facility], pt a bedhold. Admission staff indicated pt use to reside in AL before coming to their facilityLTC. CRYSTAL researched pt LG status. Located pt has an active guardianship through [facility]. On [facility] website, unable to locate a printable Letter of Guardianship. CRYSTAL called [facility]. Spoke with courtesy car driver who confirmed pt has active case. Pt guardianship is held by a guardianship agency. Court will will e-mail CRYSTAL the letter of guardianship and contact info. CRYSTAL updated TCC. . TAL follow up: Received e-mail copy of Letter og Guardianship from [facility]. Pt guardian is [employer] [facility] [employer], not a specific person. The guardianship office can be contacted at . SW placed copy of the Letter of Guardianship on floor chart. SW following. . [facility] [id number] Note* Care Coordination - Sandra Martinez RN - 05/11/2024 1:42 PM EST TCC tried to call pt's legal guardian again, no answer. VM left. TCC will try again as time allows. [facility] [id number] Note* Care Coordination - Sandra Martinez RN - 05/11/2024 1:42 PM EST TCC tried to call pt's legal guardian again, no answer. VM left. TCC will try again as time allows. [facility] [id number] Note* Care Coordination - Sandra Martinez RN - 05/11/2024 10:56 AM EST TCC called pt legal guardian to complete IA. TCC left HIPAA VM at this time. TCC will try to attempt IA as time allows today. [facility] [id number] Note* Care Coordination - Sandra Martinez RN - 05/11/2024 10:56 AM EST TCC called pt legal guardian to complete IA. TCC left HIPAA VM at this time. TCC will try to attempt IA as time allows today. [facility]onDigit [id number] NotePHYSICAL THERAPY [facility] Initial Evaluation Name/MRN: Bharat Manzanares ([id number]) Evaluation Date: 05/11/2024 Date of : 1965 Admission Date: 05/10/2024 10:03 AM Age: 59 y.o. Room[facility]Bed: [facility] A Discharge Recommendation: Assisted Facility Equipment Needed: No Assessment IMPRESSION: Bharat Manzanares was admitted on 05.10.24 with fever and chills. She has been found to have c-diff as well norovirus. She is [place], and is slow to respond when asked questions. Quite talkative. She does not want to walk far, due to her c-diff and it being uncontrollable. Was willing to ambulate to the bathroom. Needed francisca care to be done for her, she cannot reach to wipe herself, which she says leads to recurrent UTI infections. She did not want to use a walker to ambulate to and from the bathroom. She did stay up in the chair at the end of the session. Recommend return to SNF with PT upon discharge. Admitting Diagnosis: fever and chills, found to have C-diff and Rhinovirus Prognosis: good Performance Deficits /Impairments: Increased Pain, Decreased Functional Mobility, Decreased ADL status, Decreased Strength, Decreased Endurance, Decreased High Level IADLs, Decreased Cognition, Decreased Coordination, and Decreased Posture Decision Making: Medium Complexity Subjective Pt. Was sitting at the edge of the bed at onset, wanted to get to the bathroom, sat in the chair at the end of the session. She is not at high risk for falls. She does hold onto objects as she walks. She is fearful of ambulating very far due to her c-diff. She is wearing a brief, but is not in control of the BM's. She also has norovirus, and she just does not have much energy right now. Pain: abdominal pains Past Medical History: Past Medical History: Diagnosis Date Acoustic neuroma ([facility]) 11/28/2015 Overview: acoustic neuroma Onset Date: Jun 29, 2013 Allergic rhinitis Asthma Uncomplicated asthma Astigmatism 04/30/2016 Attention deficit disorder with hyperactivity 03/03/2018 Cerebral palsy ([facility]) CHF (congestive heart failure) ([facility]) ([facility]) Seen at [facility] Dr. 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 Diarrhea Dysphagia 07/09/2013 GERD (gastroesophageal reflux disease) Gingival and periodontal disease 07/09/2013 Hearing loss Hordeolum externum of left lower eyelid 05/03/2017 Hyperglycemia Hyperlipidemia Hypertension Hypoglycemia Hypothyroidism acquired Infantile cerebral palsy ([facility]) ([facility]) 07/09/2013 Overview: updated for 03/25 reg imo load Intractable migraine without aura 09/30/2001 Overview: updated for 03/25 reg imo load Irregular heartbeat Irregular heartbeat Learning disability Low compliance bladder 07/09/2013 Mental retardation 03/03/2018 Migraine Mixed stress and urge urinary incontinence 03/03/2018 Morbid obesity ([facility]) ([facility]) 07/09/2013 Myopia 04/30/2016 Neuropathy Nicotine dependence, cigarettes, with other nicotine-induced disorders Nuclear sclerotic cataract 04/30/2016 OAB (overactive bladder) 07/12/2015 Osteoarthritis Overactive bladder Parasomnia 07/09/2013 Polyneuropathy in diabetes ([facility]) ([facility]) 10/21/2002 Poor dentition Simple chronic bronchitis ([facility]) ([facility]) 07/12/2015 Stress incontinence in female 07/12/2015 Thyroid disease Tobacco abuse Type 2 diabetes mellitus ([facility]) Urinary incontinence 07/09/2013 Wears glasses Past Surgical History: Past Surgical History: Procedure Laterality Date COLONOSCOPY DENTAL SURGERY 03/11/2020 extractions x4 DENTAL SURGERY N/A 03/11/2020 SURGICAL EXTRACTION OF TEETH 1, 2, 14, 16 performed by Mitch Mccall DDS at [facility] OR UPPER GASTROINTESTINAL ENDOSCOPY 12/01/2019 EGD BIOPSY performed by Olga Zeng MD at [facility] OR Admission Diagnosis: Patient Active Problem List Diagnosis Date Noted Fever and chills 05/10/2024 Encounter for smoking cessation counseling 07/08/2020 Tobacco use disorder 07/08/2020 Acute bacterial sinusitis 02/25/2020 Megaloblastic anemia due to vitamin B12 deficiency 01/14/2020 Need for prophylactic vaccination and inoculation against varicella 12/29/2019 Infected dental caries 12/29/2019 Family history of colon cancer 12/29/2019 Intellectual disability 11/17/2018 Medication refill 04/22/2018 Chronic obstructive lung disease (HCC) 03/03/2018 Morbid obesity (HCC) 03/03/2018 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 Myopia 03/03/2018 Dysphagia 03/03/2018 Essential hypertension 03/03/2018 Nuclear sclerotic cataract 03/03/2018 Obesity 03/03/2018 Mixed stress and urge urinary incontinence 03/03/2018 Parasomnia 03/03/2018 Polyneuropathy in diabetes (CMS/HCC) (HCC) 03/03/2018 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HCC) 03/03/2018 Attention deficit disorder with hyperactivity 03/03/2018 Astigmatism 03/03/2018 Low compliance bladder 03/03/2018 Gas (more content not included)...[facility] [id number] Note Hospitalist Progress Note 05/11/2024 8:59 AM Subjective: Admit Date: 05/10/2024 PCP: DARELL Mckinnon NP Bharat is a 59 y.o. female with past medical history below including congestive heart failure, cerebral palsy, COPD, GERD, diabetes, hypertension, hyperlipidemia who presented to the emergency department for evaluation of diarrhea. Patient is residing in an assisted living facility. She reported her symptoms began last night she endorsed upwards of 30 episodes of diarrhea since onset. She does endorse that her nursing facility is recently had a norovirus outbreak. She also reported feeling feverish, headache like when she has had a previous migraine, also some abdominal pain but denied any chest pain, shortness of breath or urinary symptoms. In the emergency department she was found to have sodium of 129, mild elevation in BUN, blood glucose of 211. She had no leukocytosis or anemia noted however did have elevated band present on differential. COVID and influenza, RSV were negative. Her urinalysis was positive for leukocyte esterase, nitrites, moderate amounts of bacteria however squamous epithelial cells present also. Chest x-ray did show some evidence of pulmonary vascular congestion with interstitial edema. Patient was requiring some supplemental oxygen which at baseline she does not. Admitted for further evaluation and management. On our evaluation patient is resting in room, on the ED a card with no acute distress. She denies any abdominal pain. She is actually requesting to eat at this time as she says she is hungry. She does endorse to us that she has previously been on antibiotic therapy secondary to a toe infection. Otherwise she is not able to elaborate on sick contacts. Reports does have a guardian, paperwork list patient is DNR CC however she says she wants to be a full code as she is not ready to , looking to change to DO NOT RESUSCITATE in the future. Interval History: feeling better Less stools No CP Adult diet Regular; 5 carb choices (75 gm/meal) @IODETAILS@ @[email or web address]@ Medications: apixaban, 5 mg, Oral, BID dapagliflozin, 10 mg, Oral, Daily famotidine, 20 mg, Oral, BID Or famotidine (Pepcid) 20 mg in sodium chloride (PF) 0.9 % 10 mL injection, 20 mg, IntraVENous, BID gabapentin, 300 mg, Oral, TID influenza, 0.5 mL, IntraMUSCular, Once insulin lispro, 0-12 Units, SubCUTAneous, TID WC And insulin lispro, 0-12 Units, SubCUTAneous, Nightly levothyroxine, 137 mcg, Oral, qAM AC lurasidone, 40 mg, Oral, Daily with breakfast vancomycin, 125 mg, Oral, 4 times per day Recent Labs 05/10/24 1047 05/11/24 0348 WBC 10.1 6.7 HGB 12.7 11.2* PLT 203 229 Recent Labs 05/10/24 1047 05/11/24 0348 NA 129* 134* K 4.7 3.6 CL 98 98 CO2 23 30 BUN 19* 20* CREATININE 0.73 0.87 GLUCOSE 211* 167* Recent Labs 05/10/24 1047 AST 20 ALT 17 BILITOT 0.5 ALKPHOS 121 No results found for: TRIG, HDL, LDLCALC, CHOL No results for input(s): INR in the last 72 hours. No results for input(s): CKTOTAL, CKMB, TROPONINI in the last 72 hours. Objective: Vitals: BP 130/59 (BP Location: Left arm, Patient Position: Sitting) Pulse 77 Temp 37.1 ?C (98.8 ?F) (Temporal) Resp 16 Ht 5' 2 (1.575 m) Wt 280 lb (127 kg) SpO2 92% BMI 51.21 kg/m? Pulse Ox: SpO2 Av.4 % Min: 88 % Max: 98 % Supplemental O2: O2 Flow Rate (L/min): 4 L/min General appearance: Alert and cooperative with exam Lungs: clear to auscultation bilaterally Heart: regular rate and rhythm Abdomen: soft, non-tender; bowel sounds normal; no masses, no organomegaly Extremities: extremities normal, atraumatic, no cyanosis or edema Neurologic: No obvious focal neurologic deficits. Assessment Principal Problem: Fever and chills Acute, acute on chronic, unstable/uncontrolled chronic problems/diagnoses: Norovirus infection Bacteriuria-asymptomatic Hyponatremia Acute respiratory insufficiency-does not require home O2, hypoxia noted in emergency department, resolved with supplemental oxygen Fever of unknown origin Stable chronic problems affecting care, new non-acute diagnoses: Congestive heart failure COPD Cerebral palsy Developmental delay Hypertension Hypothyroidism Diabetes mellitus type 2 History of previous tobacco use Leukemia in remission Peripheral vascular disease Cont supportive care for norovirus PT/OT-- pt resides at SNF Pos cdiff toxin, neg EIA-- doubt active infection as norovirus more likely Cont home meds Anticipated Discharge - Date - 05/13 - Location - Skilled Facility - Pending the following - course Total time spent (which include face to face and non face to face encounters) : 36 minutes See orders, continue POC Advance Directive: Full Code Johana Berg MD, [facility]12-01-2024 Emergency department Note * Dayan Hidalgo RN - 05/10/2024 8:35 PM EST Pt transported to in stable condition on enhanced precautions by patient transport. Pt A&OX4. All patient belongings transported with patient to the floor. IV intact, patent, and [facility]plocked. [id number] Emergency [facility] Note* Dayan Hidalgo RN - 05/10/2024 8:35 PM EST Pt transported to 5E in stable condition on enhanced precautions by patient transport. Pt A&OX4. All patient belongings transported with patient to the floor. IV intact, patent, and heplocked. * Torri Sung RN - 05/10/2024 7:20 PM EST Hand off report given to Dayan SALDANA * Karen Pa RN - 05/10/2024 5:48 PM EST Report to SHANA Wild. * Torri Sung RN - 05/10/2024 4:36 PM EST Hand off report given to Karen SALDANA * Karen Pa RN - 05/10/2024 4:31 PM EST Report from SHANA Wild. * Torri Sung RN - 05/10/2024 3:52 PM EST Rn answered call light, patient asking for bed to be adjusted. * Torri Sung RN - 05/10/2024 3:42 PM EST RN ordered patient a food tray at this time. * Torri Sung RN - 05/10/2024 2:27 PM EST RN answered call light patient said Sorry I haven't had diarrhea since I've been here RN educated on need for a stool sample if she does go but no reason to be sorry regarding her lack of diarrheawhile in the ED. Patient in no acute distress, breathing is even and unlabored on room air. * Olinda Pina RN - 05/10/2024 12:58 PM EST RN responded to pt call light, repositioned bed at this time, pt denies other needs currently. * Torri Sung RN - 05/10/2024 12:36 PM EST RN answered call light, patient would like an update on her POC, RN notified. Dr. Estrella and Dr. العلي at this time. * Jean Marie العلي DO - 05/10/2024 9:16 AM EST EMERGENCY DEPARTMENT ENCOUNTER Pt Name: Bharat Manzanares Birthdate 1965 Date of evaluation: 05/10/2024 ED Provider: Jean Marie العلي DO CHIEF COMPLAINT Chief Complaint Patient presents with Diarrhea Pt from [facility], states they have an outbreak of Norovirus at the facility. Pt arrives with diarrhea for 1.5 days. Pt awake and alert on arrival. Pt also c/o knee pain chronic and a migraine. HISTORY OF PRESENT ILLNESS (Location/Symptom, Timing/Onset, Context/Setting, Quality, Duration, Modifying Factors, Severity) Note limiting factors. I wore appropriate PPE for the entirety of this encounter. HPI Bharat Manzanares is a 59 y.o. who presents to the emergency department from [facility] for the evaluation of diarrhea. Patient's symptoms started last night, reports an upward of 30 episodes of diarrhea since onset. Her facility recently had a norovirus outbreak. She also feels she has a fever,headache that feels like previous migraine, and abdominal pain but denies chest pain, shortness of breath, or urinary symptoms. Nursing Notes were reviewed. Limitations to history: None Outside historians: EMS REVIEW OF SYSTEMS Review of Systems Pertinent positives and negatives as per HPI. PAST MEDICAL HISTORY Past Medical History: Diagnosis Date Acoustic neuroma ([facility]) 11/28/2015 Overview: acoustic neuroma Onset Date: Jun 29, 2013 Allergic rhinitis Asthma Uncomplicated asthma Astigmatism 04/30/2016 Attention deficit disorder with hyperactivity 03/03/2018 Cerebral palsy ([facility]) CHF (congestive heart failure) ([facility]) ([facility]) Seen at [facility] Dr. 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 Diarrhea Dysphagia 07/09/2013 GERD (gastroesophageal reflux disease) Gingival and periodontal disease 07/09/2013 Hearing loss Hordeolum externum of left lower eyelid 05/03/2017 Hyperglycemia Hyperlipidemia Hypertension Hypoglycemia Hypothyroidism acquired Infantile cerebral palsy ([facility]) ([facility]) 07/09/2013 Overview: updated for 03/25 reg imo load Intractable migraine without aura 09/30/2001 Overview: updated for 03/25 reg imo load Irregular heartbeat Irregular heartbeat Learning disability Low compliance bladder 07/09/2013 Mental retardation 03/03/2018 Migraine Mixed stress and urge urinary incontinence 03/03/2018 Morbid obesity ([facility]) ([facility]) 07/09/2013 Myopia 04/30/2016 Neuropathy Nicotine dependence, cigarettes, with other nicotine-induced disorders Nuclear sclerotic cataract 04/30/2016 OAB (overactive bladder) 07/12/2015 Osteoarthritis Overactive bladder Parasomnia 07/09/2013 Polyneuropathy in diabetes ([facility]) ([facility]) 10/21/2002 Poor dentition Simple chronic bronchitis ([facility]) ([facility]) 07/12/2015 Stress incontinence in female 07/12/2015 Thyroid disease Tobacco abuse Type 2 diabetes mellitus ([facility]) Urinary incontinence 07/09/2013 Wears glasses SURGICAL HISTORY Past Surgical History: Procedure Laterality Date COLONOSCOPY DENTAL SURGERY 03/11/2020 extractions x4 DENTAL SURGERY N/A 03/11/2020 SURGICAL EXTRACTION OF TEETH 1, 2, 14, 16 performed by Mitch Mccall DDS at [facility] OR UPPER GASTROINTESTINAL ENDOSCOPY 12/01/2019 EGD BIOPSY performed by Olga Zeng MD at [facility] OR CURRENT MEDICATIONS Previous Medications No medications on file ALLERGIES Patient has no known allergies. FAMILY HISTORY Family History Problem Relation Name Age of Onset Cancer Paternal Grandfather Stroke Paternal Grandmother SOCIAL HISTORY Social History Socioeconomic History Marital status: Single Tobacco Use Smoking status: Every Day Current packs/day: 0.00 Types: Cigarettes Last attempt to quit: 09/15/2020 Years since quittin.6 Smokeless tobacco: Never Tobacco comments: Quit smoking: smokes occassionally Substance and Sexual Activity Alcohol use: No Alcohol/week: 0.0 standard drinks of alcohol Drug use: No Social Drivers of Health Financial Resource Strain: Low Risk (08/18/2022) Received from [facility] Overall Financial Resource Strain (CARDIA) Difficulty of Paying Living Expenses: Not very hard Food Insecurity: No Food Insecurity (02/06/2023) Received from [facility] Hunger Screening Within the past 12 months we worried whether our food would run out before we got money to buy more.: Never True Within the past 12 months the food we bought just didn't last and we didn't have money to get more.: Never True Transportation Needs: No Transportation Needs (08/18/2022) Received from [facility] PRAPARE - Transportation Lack of Transportation (Medical): No Lack of Transportation (Non-Medical): No Physical Activity: Inactive (08/18/2022) Received from [facility] Exercise Vital Sign Days of Exercise per Week: 0 days Minutes of Exercise per Session: 0 min Stress: Stress Concern Present (08/18/2022) Received from [facility] [employer] [place] [employer] - Occupational Stress Questionnaire Feeling of Stress : To some extent Social Connections: Socially Isolated (08/18/2022) Received from [facility] Social Connection and Isolation Panel [NHANES] Frequency of Communication with Friends and Family: More than three times a week Frequency of Social Gatherings with Friends and Family: Never Attends [employer]: Never Active Member of Clubs or Organizations: No Attends Club or Organization Meetings: Never Marital Status: Never Received from [facility] Safety & Environment Housing Stability: High Risk (08/18/2022) Received from [facility] Housing Instability Are you worried or concerned that in the next two months you may not have stable housing that you own, rent or stay in as a part of a household?: Yes SCREENINGS PHYSICAL EXAM ED Triage Vitals Temp Heart Rate Resp BP 05/10/24 1010 05/10/24 1006 05/10/24 1006 05/10/24 1006 (!) 38.1 C (100.5 F) 85 18 (!) 155/56 SpO2 Temp Source Heart Rate Source Patient Position 05/10/24 1006 05/10/24 1010 05/10/24 1006 05/10/24 1134 (!) 88 % Oral Monitor Other (Comment) BP Location FiO2 (%) 05/10/24 1134 -- Right arm Physical Exam Vitals and nursing note reviewed. Constitutional: Appearance: Normal appearance. She is obese. HENT: Head: Normocephalic and atraumatic. Nose: Nose normal. Mouth/Throat: Pharynx: Oropharynx is clear. Cardiovascular: Rate and Rhythm: Normal rate and regular rhythm. Pulses: Normal pulses. Heart sounds: Normal heart sounds. Pulmonary: Effort: Pulmonary effort is normal. No respiratory distress. Breath sounds: Normal breath sounds. No wheezing, rhonchi or rales. Abdominal: Palpations: Abdomen is soft. Tenderness: There is abdominal tenderness (Generalized). Musculoskeletal: Right lower leg: Edema present. Left lower leg: Edema present. Skin: General: Skin is warm and dry. Capillary Refill: Capillary refill takes less than 2 seconds. Neurological: Mental Status: She is alert and oriented to person, place, and time. DIAGNOSTIC RESULTS RADIOLOGY (Per Emergency Physician): Interpretation per the Radiologist below, if available at the time of this note: XR chest 1 view Final Result Pulmonary vascular congestion with interstitial edema. Report Dictated on Electronically Signed By: Jessica Link MD Electronically Signed Date/Time: 05/10/2024 11:26 AM EST LABS: Labs Reviewed COMPREHENSIVE METABOLIC PANEL - Abnormal Result Value SODIUM 129 (*) POTASSIUM 4.7 CHLORIDE 98 CARBON DIOXIDE 23 ANION GAP 8 UREA NITROGEN 19 (*) CREATININE 0.73 GLUCOSE 211 (*) CALCIUM 8.5 AST (SGOT) 20 ALT 17 ALKALINE PHOSPHATASE 121 ALBUMIN 3.8 BILIRUBIN, TOTAL 0.5 TOTAL PROTEIN 7.5 eGFR >90.0 CBC WITH AUTO DIFFERENTIAL - Abnormal Auto WBC 10.1 RBC 5.08 Hemoglobin 12.7 Hematocrit 41.8 MCV 82.3 MCH 25.0 (*) MCHC 30.4 (*) RDW 18.6 (*) Platelets 203 MPV 9.7 COMPLETE URINALYSIS - Abnormal Color, Urine Yellow Clarity, Urine Turbid (*) pH, Urine 5.5 Leukocytes, Urine 75 (*) Nitrite, Urine Positive (*) Protein, Urine 50 (*) Glucose, Urine Normal Bilirubin, Urine Negative Ketones, Urine Negative Urobilinogen, Urine Normal Blood, Urine Negative RBC, Urine 3-5 (*) WBC, Urine 6-10 (*) Squamous Epithelial, Urine 6-10 (*) Bacteria, Urine Moderate (*) Mucus, Urine Few Hyaline Casts, Urine Negative SPECIFIC GRAVITY OF URINE (NUMERIC) 1.020 MANUAL DIFFERENTIAL (CELLAVISION) - Abnormal RBC Morphology abnormal Poikilocytes Slight (*) Hypochromia Slight (*) Polychromasia Slight (*) Ovalocytes Slight (*) Neutrophils % 79 Bands % 3 (*) Lymphocytes % 10 (*) Monocytes % 6 Eosinophils % 2 Absolute Neutrophil Count 8.3 (*) Bands Absolute 0.3 (*) Lymphocytes Absolute 1.0 Monocytes Absolute 0.6 Eosinophils Absolute 0.2 Neutrophils Manual 79 Lymphocytes Manual 10 Monocytes Manual 6 Eosinophils Manual 2 (*) Basophils Manual Bands Manual 3 Metamyelocytes Manual Myelocytes Manual Promyelocytes Manual Blasts Manual Atypical Lymphocytes Manual Unclassified Cells, Manual SARS-COV-2, FLU A/B, AND RSV COMBO - Normal SARS-CoV-2 Not Detected Respiratory Syncytial Virus Not Detected Influenza A Not Detected Influenza B Not Detected Narrative: Methodology: real-time, RT-PCR LIPASE - Normal LIPASE 37 MAGNESIUM - Normal MAGNESIUM 1.7 GASTROINTESTINAL PCR PANEL C. DIFFICILE BY PCR WITH REFLEX TO EIA COMPLETE URINALYSIS WITH REFLEX TO CULTURE Narrative: The following orders were created for panel order Complete Urinalysis with reflex to Culture. Procedure Abnormality Status --------- ------ Complete Urinalysis[[id number]] Abnormal Final result Please view results for these tests on the individual orders. NT PRO BNP All other labs were within normal range or not returned as of this dictation. EMERGENCY DEPARTMENT COURSE and DIFFERENTIAL DIAGNOSIS/MDM: Vitals: Vitals: 05/10/24 1010 05/10/24 1048 05/10/24 1134 05/10/24 1538 BP: 124/78 116/67 115/53 BP Location: Right arm Patient Position: Other (Comment) Other (Comment) Pulse: 84 76 72 Resp: 16 16 16 Temp: (!) 38.1 C (100.5 F) TempSrc: Oral SpO2: 94% 96% 96% Weight: Height: The patient presented with a chief complaint of diarrhea. Given her presentation and HPI, concerns for possible dehydration or electrolyte abnormalities. I ordered basic labs, UA, lipase. She was febrile and hypoxic on arrival, improved with 2 L nasal cannula. Otherwise hemodynamically stable. Tylenol given for fever control and pain relief. Workup significant for UA consistent with urinary tract infection, ordered ceftriaxone 1 g. She also is hyponatremic but no evidence of kidney injury that would make me concern for hypovolemia or dehydration. Patient may actually be volume overloaded, so withheld bolus of normal saline at this time. Ordered additional labs including BNP, C. difficile PCR, GI panel, respiratory infectious panel. Pending these labs. Given the patient's new onset oxygen requirement and reported profuse diarrhea with electrolyte abnormalities, this patient likely benefit from admission to the hospital for closer observation and correction of hypoxia and electrolyte abnormalities. Discussed case with Dr. Morales, he will accept patient to the hospital for further management. ED Course as of 05/10/24 1549 Sun May 10, 2024 1355 CHLORIDE: 98 [MJ] ED Course User Index [MJ] Lynn Estrella DO Diagnoses as of 05/10/24 1549 Fever and chills ED Medications managed: Medications cefTRIAXone (Rocephin) 1,000 mg in sodium chloride 0.9 % 50 mL IVPB Mini-Bag Plus (1,000 mg IntraVENous New Bag 05/10/24 1536) acetaminophen (Tylenol) tablet 1,000 mg (1,000 mg Oral Given 05/10/24 1212) PROCEDURES: Unless otherwise noted below, none Procedures FINAL IMPRESSION 1. Fever and chills DISPOSITION Admit 05/10/2024 03:28:44 PM PATIENT REFERRED TO: No follow-up provider specified. DISCHARGE MEDICATIONS: New Prescriptions No medications on file (Comment: Please note this report has been produced using speech recognition software and may contain errors related to that system including errors in grammar, punctuation, and spelling, as well as words and phrases that may be inappropriate. If there are any questions or concerns please feel freeto contact the dictating provider for clarification.) Jean Marie العلي DO (electronically signed) Emergency Medicine Provider Jean Marie العلي DO Resident 05/10/24 1549 Cosigned by Lynn Estrella DO at 05/12/2024 1:28 PM EST * Lynn Estrella DO - 05/10/2024 9:16 AM EST Emergency Department Encounter [facility] EMERGENCY DEPT Patient: Bharat Manzanares : 1965 Date of Evaluation: 05/10/2024 ED Supervising Physician: Lynn Estrella DO I personally evaluated Bharat Manzanares and made/approved the management plan and take responsibility for the patient management. This will serve as my Supervisory note and shared attestation. I did perform a substantive portion of the visit including all aspects of the Medical Decision Making. I wore appropriate PPE for the entirety of this encounter. In brief, Bharat Manzanares is a 59 y.o. that presents to the emergency department from nursing facility with diarrhea. Reported that patient's facility has an outbreak of norovirus. Since yesterday patient has had greater than 30 episodes of nonbloody non tarry diarrhea. Endorses nausea without vomiting as well as generalized abdominal pain. No urinary symptoms, fevers, chest pain, dyspnea or other new symptoms. Focused exam: General: Alert, nontoxic-appearing Eyes: Conjunctiva normal Cardiac: Regular rhythm, normal rate Lungs: No respiratory distress, lungs clear to auscultation Abdomen: Soft, nontender, nondistended Extremities: No peripheral edema Skin: Warm and dry Neuro: no focal deficits Brief ED course/MDM: 59-year-old female presenting to the ED from nursing facility where there is an outbreak of norovirus. Patient is febrile at 38.1 C but hemodynamically stable and she is not tachycardic. C. difficileand GI panel was ordered as well as viral swabs and she is negative for COVID, flu and RSV. She does have a urinary tract infection which was treated with Rocephin. Labs show a hyponatremia of 129 however patient appears fluid overloaded on exam and chest x-ray shows interstitial edema therefore weheld on fluids at this time as it may be a hypervolemic hyponatremia. Patient is also saturating 88% on room air and was placed on nasal cannula which is a new oxygen requirement. This may be due to h er fluid overload. Will plan to admit for new oxygen requirement and monitoring as she may have a clinically worsened status with her profuse diarrhea. Diagnostics interpreted by me: Xray(s) pulmonary edema I personally discussed the patient's management with other clinicians: none All diagnostic, treatment, and disposition decisions were made by myself in conjunction with the Resident. I also supervised ramsey portions of any procedures performed by the Resident. For all further details of the patient's emergency department visit, please see their documentation. (Comment: Please note this report has been produced using speech recognition software and may contain errors related to that system including errors in grammar, punctuation, and spelling, as well as words and phrases that may be inappropriate. If there are any questions or concerns please feel freeto contact the dictating provider for clarification.) Lynn Estrella DO Acute Care [facility] Lynn Estrella DO 05/10/24 1713 documented in this [facility]12-01-2024 Emergency department Note* Torri Sung RN - 05/10/2024 7:20 PM EST Hand off report given to Dayan SALDANA [id number] Note* Karen Pa RN - 05/10/2024 5:48 PM EST Report to SHANA Wild. [facility]12-01-2024 Emergency department Note* Torri Sung RN - 05/10/2024 4:36 PM EST Hand off report given to Karen SALDANA [address]01-2024 Emergency department Note* Karen Pa RN - 05/10/2024 4:31 PM EST Report from SHANA Wild. [facility]12-01-2024 History and physical note* DARELL Woods CNP - 05/10/2024 3:58 PM EST Attending History and Physical Admit Date: 05/10/2024 PCP: DARELL Mckinnon NP CHIEF COMPLAINT: Diarrhea Reason for Admission: Fever and chills History Obtained From: patient HISTORY OF PRESENT ILLNESS: Bharat is a 59 y.o. female with past medical history below including congestive heart failure, cerebral palsy, COPD, GERD, diabetes, hypertension, hyperlipidemia who presented to the emergency department for evaluation of diarrhea. Patient is residing in an assisted living facility. She reported her symptoms began last night she endorsed upwards of 30 episodes of diarrhea since onset. She does endorse that her nursing facility is recently had a norovirus outbreak. She also reported feeling feverish, headache like when she has had a previous migraine, also some abdominal pain but denied any chest pain, shortness of breath or urinary symptoms. In the emergency department she was found to have sodium of 129, mild elevation in BUN, blood glucose of 211. She had no leukocytosis or anemia noted however did have elevated band present on differential. COVID and influenza, RSV were negative. Her urinalysis was positive for leukocyte esterase, nitrites, moderate amounts of bacteria however squamous epithelial cells present also. Chest x-ray did show some evidence of pulmonary vascular congestion with interstitial edema. Patient was requiringsome supplemental oxygen which at baseline she does not. Admitted for further evaluation and management. On our evaluation patient is resting in room, on the ED a card with no acute distress. She denies any abdominal pain. She is actually requesting to eat at this time as she says she is hungry. She does endorse to us that she has previously been on antibiotic therapy secondary to a toe infection. Otherwise she is not able to elaborate on sick contacts. Reports does have a guardian, paperwork list patient is DNR CC however she says she wants to be a full code as she is not ready to , looking tochange to DO NOT RESUSCITATE in the future. Multiple call attempts made to facility which kept getting disconnected to clarify whether or not [place] DNR form was there to send to us without success talking to facility member. Past Medical History: Past Medical History: Diagnosis Date Acoustic neuroma ([facility]) 11/28/2015 Overview: acoustic neuroma Onset Date: Jun 29, 2013 Allergic rhinitis Asthma Uncomplicated asthma Astigmatism 04/30/2016 Attention deficit disorder with hyperactivity 03/03/2018 Cerebral palsy ([facility]) CHF (congestive heart failure) ([facility]) ([facility]) Seen at [facility] Dr. 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 Diarrhea Dysphagia 07/09/2013 GERD (gastroesophageal reflux disease) Gingival and periodontal disease 07/09/2013 Hearing loss Hordeolum externum of left lower eyelid 05/03/2017 Hyperglycemia Hyperlipidemia Hypertension Hypoglycemia Hypothyroidism acquired Infantile cerebral palsy ([facility]) ([facility]) 07/09/2013 Overview: updated for 03/25 reg imo load Intractable migraine without aura 09/30/2001 Overview: updated for 03/25 reg imo load Irregular heartbeat Irregular heartbeat Learning disability Low compliance bladder 07/09/2013 Mental retardation 03/03/2018 Migraine Mixed stress and urge urinary incontinence 03/03/2018 Morbid obesity ([facility]) ([facility]) 07/09/2013 Myopia 04/30/2016 Neuropathy Nicotine dependence, cigarettes, with other nicotine-induced disorders Nuclear sclerotic cataract 04/30/2016 OAB (overactive bladder) 07/12/2015 Osteoarthritis Overactive bladder Parasomnia 07/09/2013 Polyneuropathy in diabetes ([facility]) ([facility]) 10/21/2002 Poor dentition Simple chronic bronchitis ([facility]) ([facility]) 07/12/2015 Stress incontinence in female 07/12/2015 Thyroid disease Tobacco abuse Type 2 diabetes mellitus ([facility]) Urinary incontinence 07/09/2013 Wears glasses Past Surgical History: Past Surgical History: Procedure Laterality Date COLONOSCOPY DENTAL SURGERY 03/11/2020 extractions x4 DENTAL SURGERY N/A 03/11/2020 SURGICAL EXTRACTION OF TEETH 1, 2, 14, 16 performed by Mitch cMcall DDS at [facility] OR UPPER GASTROINTESTINAL ENDOSCOPY 12/01/2019 EGD BIOPSY performed by Olga Zeng MD at [facility] OR Social History: Social History Socioeconomic History Marital status: Single Spouse name: Not on file Number of children: Not on file Years of education: Not on file Highest education level: Not on file Occupational History Not on file Tobacco Use Smoking status: Every Day Current packs/day: 0.00 Types: Cigarettes Last attempt to quit: 09/15/2020 Years since quittin.6 Smokeless tobacco: Never Tobacco comments: Quit smoking: smokes occassionally Substance and Sexual Activity Alcohol use: No Alcohol/week: 0.0 standard drinks of alcohol Drug use: No Sexual activity: Not on file Other Topics Concern Not on file Social History Narrative Not on file Social Drivers of Health Financial Resource Strain: Low Risk (08/18/2022) Received from [facility] Overall Financial Resource Strain (CARDIA) Difficulty of Paying Living Expenses: Not very hard Food Insecurity: No Food Insecurity (02/06/2023) Received from [facility] Hunger Screening Within the past 12 months we worried whether our food would run out before we got money to buy more.: Never True Within the past 12 months the food we bought just didn't last and we didn't have money to get more.: Never True Transportation Needs: No Transportation Needs (08/18/2022) Received from [facility] PRAPARE - Transportation Lack of Transportation (Medical): No Lack of Transportation (Non-Medical): No Physical Activity: Inactive (08/18/2022) Received from [facility] Exercise Vital Sign Days of Exercise per Week: 0 days Minutes of Exercise per Session: 0 min Stress: Stress Concern Present (08/18/2022) Received from [facility] [employer] [place] [facility] [employer] - Occupational Stress Questionnaire Feeling of Stress : To some extent Social Connections: Socially Isolated (08/18/2022) Received from [facility] Social Connection and Isolation Panel [NHANES] Frequency of Communication with Friends and Family: More than three times a week Frequency of Social Gatherings with Friends and Family: Never Attends Lutheran Services: Never Active Member of Clubs or Organizations: No Attends Club or Organization Meetings: Never Marital Status: Never Intimate Partner Violence: Unknown (08/01/2023) Received from [facility] [place] Safety & Environment Fear of Current or Ex-Partner: Not on file Emotionally Abused: Not on file Physically Abused: Not on file Sexually Abused: Not on file Physically or Sexually Abused: Not on file Housing Stability: High Risk (08/18/2022) Received from [facility] Housing Instability Are you worried or concerned that in the next two months you may not have stable housing that you own, rent or stay in as a part of a household?: Yes Family History: Family History Problem Relation Name Age of Onset Cancer Paternal Grandfather Stroke Paternal Grandmother Medications Prior to Admission: No current facility-administered medications on file prior to encounter. No current outpatient medications on file prior to encounter. Allergies: No Known Allergies REVIEW OF SYSTEMS: Constitutional: Negative for fever, chills, activity change and unexpected weight change. HEENT: Negative for congestion, postnasal drip and sneezing. Eyes: Negative for itching and visual disturbance. Respiratory: Negative for apnea, cough, choking, chest tightness, shortness of breath, wheezing andstridor. Cardiovascular: Negative for chest pain. Gastrointestinal: Negative for nausea, vomiting, abdominal pain, and blood in stool. Positive for diarrhea Genitourinary: Negative for dysuria, frequency and flank pain. Musculoskeletal: Negative for myalgias and joint swelling. Skin: Negative for rash. Neurological: Negative for dizziness, tremors, seizures, syncope, facial asymmetry, speech difficulty, weakness, numbness and headaches. Hematological: Negative for adenopathy. Psychiatric/Behavioral: Negative for suicidal ideas, behavioral problems, self- injury and dysphoricmood. Vitals: BP 115/53 (Patient Position: Other (Comment)) Comment (Patient Position): high fowlers Pulse 72 Temp (!) 38.1 C (100.5 F) (Oral) Resp 16 Ht 5' 2 (1.575 m) Wt 280 lb (127 kg) SpO2 96% BMI 51.21 kg/m BMI Classification: Morbidly Obese (>40.0) Pulse Ox: SpO2 Av.6 % Min: 88 % Max: 96 % Supplemental O2: O2 Flow Rate (L/min): 2 L/min Physical Exam Vitals and nursing note reviewed. Constitutional: Appearance: She is obese. HENT: Head: Normocephalic. Nose: Nose normal. Mouth/Throat: Mouth: Mucous membranes are moist. Cardiovascular: Rate and Rhythm: Normal rate and regular rhythm. Pulmonary: Effort: Pulmonary effort is normal. Comments: Diminished lung sounds on auscultation bilaterally, expiratory wheezing noted on auscultation of bases Abdominal: General: Bowel sounds are normal. Tenderness: There is abdominal tenderness. Comments: LLQ Musculoskeletal: General: Normal range of motion. Skin: General: Skin is warm. Neurological: General: No focal deficit present. Mental Status: She is alert. Psychiatric: Mood and Affect: Mood normal. Behavior: Behavior normal. DATA: CBC: Recent Labs 05/10/24 1047 WBC 10.1 RBC 5.08 HGB 12.7 HCT 41.8 MCV 82.3 RDW 18.6* PLT 203 BMP: Recent Labs 05/10/24 1047 NA 129* K 4.7 CL 98 CO2 23 BUN 19* CREATININE 0.73 GLUCOSE 211* CALCIUM 8.5 ANIONGAP 8 LIVER PROFILE: Recent Labs 05/10/24 1047 AST 20 ALT 17 BILITOT 0.5 ALKPHOS 121 PROT 7.5 PT/INR: No results for input(s): PROTIME, INR in the last 72 hours. CARDIAC ENZYMES: No results for input(s): TROPONINI in the last 72 hours. Procalcitonin: No results found for: PROCAL Urine Culture: No results found for this or any previous visit. COVID-19 PCR: No results for input(s): COVID19 in the last 72 hours. I reviewed: [x] laboratory results [x] radiographic results At the time of today's encounter. Pt was advised of the results. Data: (CAT1) Reviewed 2 notes from different specialty or health system (each=1). (CAT1) Reviewed 2 labs/studies ordered by another provider not previously counted (each=1, panels count as 1). (CAT1) Ordered 2 new labs and/or studies (each=1, panels count as 1). (CAT2) CXR reviewed & showed pulmonary vascular congestion as interpreted by me. (LOW: 2x CAT1 or independent historian MOD: 3x CAT1 or 1x CAT3 EXTENSIVE: 3x CAT1 and 1x CAT3) Assessment Discussed management with the ED provider and agree with hospitalization. Labs reviewed with a sodium of 129, elevated BUN Blood glucose 211 No leukocytosis or anemia however noted to have a band percent increase at 3 Urinalysis is positive for nitrites, leukocyte Estrace but also squamous epithelial cells Acute, acute on chronic, unstable/uncontrolled chronic problems/diagnoses: Subjective diarrhea-concern for gastrointestinal illness, consider obstruction or GI process Bacteriuria-asymptomatic Hyponatremia Acute respiratory insufficiency-does not require home O2, hypoxia noted in emergency department, resolved with supplemental oxygen Fever of unknown origin Stable chronic problems affecting care, new non-acute diagnoses: Congestive heart failure COPD Cerebral palsy Developmental delay Hypertension Hypothyroidism Diabetes mellitus type 2 History of previous tobacco use Leukemia in remission Peripheral vascular disease Plan As a result of the above findings & factors, the following mgmt was pursued: -Medical admission -Will check gastrointestinal panels, C. difficile test -Given new oxygen requirement, GI symptoms, concern for another respiratory cause potentially. Willcheck full respiratory viral panel -proBNP pending, echocardiogram considered and will be based on those results, if elevated would consider further evaluation of potential acute heart failure -Will check urinalysis with urine culture, stool testing to be completed as well as full respiratory panel. -Patient is currently on ceftriaxone for presumed urinary infectious source, we will adjust antibiotics as necessary with workup continued -Will need to clarify home medication list -Continue to follow with facility for documentation of DNR status, at this time patient to be full code as this is what she voiced to me, will need to reach out to guardian for clarification of this -Sliding scale insulin coverage ACHS, hypoglycemia protocol in place -Will order home medications for chronic conditions including statin therapy, thyroid with placement at this time while awaiting full list -Hyponatremia labs -CT abd and pelvis with tenderness on Abd exam - am labs, replace lytes prn - PT/OT/CM/SW - delirium precautions: increase activity - DVT prophylaxis: enoxaparin and encourage ambulation Complexity: Acute illness with systemic symptoms (MOD). Risk: Admission to hospital-level care was considered or occurred (HIGH). Prescription drug/IVF/colloid was initiated, discontinued, adjusted; or reviewed with decision to maintain current orders (MOD). Care and management is being impacted by the following SDOH: low education/difficulty understandingmedical issues (MOD). Advance Directive: No Order Anticipated Discharge - Date - 05/15 - Location - Assisted Living - Pending the following -complete evaluation, symptom improvement Total time spent (which include face to face and non face to face encounters) : 76 minutes. Extended Emergency Contact Information Primary Emergency Contact: Samantha Liz Mobile Relation: Legal Guardian Secondary Emergency Contact: Chasity Ruiz Relation: Parent [employer] Bharat Manzanares : 1965 Primary Care Physician: DARELL Mckinnon NP The patient and/or family/surrogate voluntarily agreed to participate in ACP services. Patient s cognitive capacity: Alert and oriented x 4 Code Status: [X] [FULL CODE - Continue all advanced life support: CPR,intubation,invasive procedures] [_] [DNR-CCA - DO NOT do CPR, intubation] [_] [DNR-WEAPONS DESIGNER - Comfort care only] [_] DNR form [was/was not] signed Summary of discussion: The patient health care POA/ surrogate is the following: Guardian Samantha, unable to get a hold of via phone, pt requests full code today and [facility] unable to provide DNRCCpaperwork when called as they have listed in her orders Total time spent: 5 minutes were spent discussing the patient's resuscitation status, advance care planning, and end of life care, with patient and/or family/surrogate. DARELL Dior CNP Division of Hospitalist Medicine [facility] Cosigned by Edward Morales MD at 05/10/2024 5:21 PM EST relocality Phone: [phone]) 594-196012-01-2024 NoteAttending History and Physical Admit Date: 05/10/2024 PCP: DARELL Mckinnon NP CHIEF COMPLAINT: Diarrhea Reason for Admission: Fever and chills History Obtained From: patient HISTORY OF PRESENT ILLNESS: Bharat is a 59 y.o. female with past medical history below including congestive heart failure, cerebral palsy, COPD, GERD, diabetes, hypertension, hyperlipidemia who presented to the emergency department for evaluation of diarrhea. Patient is residing in an assisted living facility. She reported her symptoms began last night she endorsed upwards of 30 episodes of diarrhea since onset. She does endorse that her nursing facility is recently had a norovirus outbreak. She also reported feeling feverish, headache like when she has had a previous migraine, also some abdominal pain but denied any chest pain, shortness of breath or urinary symptoms. In the emergency department she was found to have sodium of 129, mild elevation in BUN, blood glucose of 211. She had no leukocytosis or anemia noted however did have elevated band present on differential. COVID and influenza, RSV were negative. Her urinalysis was positive for leukocyte esterase, nitrites, moderate amounts of bacteria however squamous epithelial cells present also. Chest x-ray did show some evidence of pulmonary vascular congestion with interstitial edema. Patient was requiring some supplemental oxygen which at baseline she does not. Admitted for further evaluation and management. On our evaluation patient is resting in room, on the ED a card with no acute distress. She denies any abdominal pain. She is actually requesting to eat at this time as she says she is hungry. She does endorse to us that she has previously been on antibiotic therapy secondary to a toe infection. Otherwise she is not able to elaborate on sick contacts. Reports does have a guardian, paperwork list patient is DNR CC however she says she wants to be a full code as she is not ready to , looking to change to DO NOT RESUSCITATE in the future. Multiple call attempts made to facility which kept getting disconnected to clarify whether or not [place] DNR form was there to send to us without success talking to facility member. Past Medical History: Past Medical History: Diagnosis Date Acoustic neuroma ([facility]) 11/28/2015 Overview: acoustic neuroma Onset Date: Jun 29, 2013 Allergic rhinitis Asthma Uncomplicated asthma Astigmatism 04/30/2016 Attention deficit disorder with hyperactivity 03/03/2018 Cerebral palsy ([facility]) CHF (congestive heart failure) ([facility]) ([facility]) Seen at [facility] Dr. 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 Diarrhea Dysphagia 07/09/2013 GERD (gastroesophageal reflux disease) Gingival and periodontal disease 07/09/2013 Hearing loss Hordeolum externum of left lower eyelid 05/03/2017 Hyperglycemia Hyperlipidemia Hypertension Hypoglycemia Hypothyroidism acquired Infantile cerebral palsy ([facility]) ([facility]) 07/09/2013 Overview: updated for 03/25 reg imo load Intractable migraine without aura 09/30/2001 Overview: updated for 03/25 reg imo load Irregular heartbeat Irregular heartbeat Learning disability Low compliance bladder 07/09/2013 Mental retardation 03/03/2018 Migraine Mixed stress and urge urinary incontinence 03/03/2018 Morbid obesity ([facility]) ([facility]) 07/09/2013 Myopia 04/30/2016 Neuropathy Nicotine dependence, cigarettes, with other nicotine-induced disorders Nuclear sclerotic cataract 04/30/2016 OAB (overactive bladder) 07/12/2015 Osteoarthritis Overactive bladder Parasomnia 07/09/2013 Polyneuropathy in diabetes ([facility]) ([facility]) 10/21/2002 Poor dentition Simple [place]) 07/12/2015 Stress incontinence in female 07/12/2015 Thyroid disease Tobacco abuse Type 2 diabetes mellitus ([facility]) Urinary incontinence 07/09/2013 Wears glasses Past Surgical History: Past Surgical History: Procedure Laterality Date COLONOSCOPY DENTAL SURGERY 03/11/2020 extractions x4 DENTAL SURGERY N/A 03/11/2020 SURGICAL EXTRACTION OF TEETH 1, 2, 14, 16 performed by Mitch Mccall DDS at [facility] OR UPPER GASTROINTESTINAL ENDOSCOPY 12/01/2019 EGD BIOPSY performed by Olga Zeng MD at [facility] OR Social History: Social History Socioeconomic History Marital status: Single Spouse name: Not on file Number of children: Not on file Years of education: Not on file Highest education level: Not on file Occupational History Not on file Tobacco Use Smoking status: Every Day Current packs/day: 0.00 Types: Cigarettes Last attempt to quit: 09/15/2020 Years since quittin.6 Smokeless tobacco: Never Tobacco comments: Quit smoking: smokes occassionally Substance and Sexual Activity Alcohol use: No Alcohol/week: 0.0 standard drinks of alcohol Drug use: No Sexual activity: Not on fi (more content not included)...[facility] 05-10-2024 History and physical note* DARELL Woods CNP - 05/10/2024 3:58 PM EST Attending History and Physical Admit Date: 05/10/2024 PCP: DARELL Mckinnon NP CHIEF COMPLAINT: Diarrhea Reason for Admission: Fever and chills History Obtained From: patient HISTORY OF PRESENT ILLNESS: Bharat is a 59 y.o. female with past medical history below including congestive heart failure, cerebral palsy, COPD, GERD, diabetes, hypertension, hyperlipidemia who presented to the emergency department for evaluation of diarrhea. Patient is residing in an assisted living facility. She reported her symptoms began last night she endorsed upwards of 30 episodes of diarrhea since onset. She does endorse that her nursing facility is recently had a norovirus outbreak. She also reported feeling feverish, headache like when she has had a previous migraine, also some abdominal pain but denied any chest pain, shortness of breath or urinary symptoms. In the emergency department she was found to have sodium of 129, mild elevation in BUN, blood glucose of 211. She had no leukocytosis or anemia noted however did have elevated band present on differential. COVID and influenza, RSV were negative. Her urinalysis was positive for leukocyte esterase, nitrites, moderate amounts of bacteria however squamous epithelial cells present also. Chest x-ray did show some evidence of pulmonary vascular congestion with interstitial edema. Patient was requiringsome supplemental oxygen which at baseline she does not. Admitted for further evaluation and management. On our evaluation patient is resting in room, on the ED a card with no acute distress. She denies any abdominal pain. She is actually requesting to eat at this time as she says she is hungry. She does endorse to us that she has previously been on antibiotic therapy secondary to a toe infection. Otherwise she is not able to elaborate on sick contacts. Reports does have a guardian, paperwork list patient is DNR CC however she says she wants to be a full code as she is not ready to , looking tochange to DO NOT RESUSCITATE in the future. Multiple call attempts made to facility which kept getting disconnected to clarify whether or not [place] DNR form was there to send to us without success talking to facility member. Past Medical History: Past Medical History: Diagnosis Date Acoustic neuroma ([facility]) 11/28/2015 Overview: acoustic neuroma Onset Date: Jun 29, 2013 Allergic rhinitis Asthma Uncomplicated asthma Astigmatism 04/30/2016 Attention deficit disorder with hyperactivity 03/03/2018 Cerebral palsy ([facility]) CHF (congestive heart failure) ([facility]) ([facility]) Seen at [facility] Dr. 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 Diarrhea Dysphagia 07/09/2013 GERD (gastroesophageal reflux disease) Gingival and periodontal disease 07/09/2013 Hearing loss Hordeolum externum of left lower eyelid 05/03/2017 Hyperglycemia Hyperlipidemia Hypertension Hypoglycemia Hypothyroidism acquired Infantile cerebral palsy ([facility]) ([facility]) 07/09/2013 Overview: updated for 03/25 reg imo load Intractable migraine without aura 09/30/2001 Overview: updated for 03/25 reg imo load Irregular heartbeat Irregular heartbeat Learning disability Low compliance bladder 07/09/2013 Mental retardation 03/03/2018 Migraine Mixed stress and urge urinary incontinence 03/03/2018 Morbid obesity ([facility]) ([facility]) 07/09/2013 Myopia 04/30/2016 Neuropathy Nicotine dependence, cigarettes, with other nicotine-induced disorders Nuclear sclerotic cataract 04/30/2016 OAB (overactive bladder) 07/12/2015 Osteoarthritis Overactive bladder Parasomnia 07/09/2013 Polyneuropathy in diabetes ([facility]) ([facility]) 10/21/2002 Poor dentition Simple chronic [place] [place]) 07/12/2015 Stress incontinence in female 07/12/2015 Thyroid disease Tobacco abuse Type 2 diabetes mellitus ([facility]) Urinary incontinence 07/09/2013 Wears glasses Past Surgical History: Past Surgical History: Procedure Laterality Date COLONOSCOPY DENTAL SURGERY 03/11/2020 extractions x4 DENTAL SURGERY N/A 03/11/2020 SURGICAL EXTRACTION OF TEETH 1, 2, 14, 16 performed by Mitch Mccall DDS at [facility] OR UPPER GASTROINTESTINAL ENDOSCOPY 12/01/2019 EGD BIOPSY performed by Olga Zeng MD at [facility] OR Social History: Social History Socioeconomic History Marital status: Single Spouse name: Not on file Number of children: Not on file Years of education: Not on file Highest education level: Not on file Occupational History Not on file Tobacco Use Smoking status: Every Day Current packs/day: 0.00 Types: Cigarettes Last attempt to quit: 09/15/2020 Years since quittin.6 Smokeless tobacco: Never Tobacco comments: Quit smoking: smokes occassionally Substance and Sexual Activity Alcohol use: No Alcohol/week: 0.0 standard drinks of alcohol Drug use: No Sexual activity: Not on file Other Topics Concern Not on file Social History Narrative Not on file Social Drivers of Health Financial Resource Strain: Low Risk (08/18/2022) Received from [facility] Overall Financial Resource Strain (CARDIA) Difficulty of Paying Living Expenses: Not very hard Food Insecurity: No Food Insecurity (02/06/2023) Received from [facility] Hunger Screening Within the past 12 months we worried whether our food would run out before we got money to buy more.: Never True Within the past 12 months the food we bought just didn't last and we didn't have money to get more.: Never True Transportation Needs: No Transportation Needs (08/18/2022) Received from [facility] PRAPARE - Transportation Lack of Transportation (Medical): No Lack of Transportation (Non-Medical): No Physical Activity: Inactive (08/18/2022) Received from [facility] Exercise Vital Sign Days of Exercise per Week: 0 days Minutes of Exercise per Session: 0 min Stress: Stress Concern Present (08/18/2022) Received from [facility] [employer] [place] [facility] [employer] - Occupational Stress Questionnaire Feeling of Stress : To some extent Social Connections: Socially Isolated (08/18/2022) Received from [facility] Social Connection and Isolation Panel [NHANES] Frequency of Communication with Friends and Family: More than three times a week Frequency of Social Gatherings with Friends and Family: Never Attends Lutheran Services: Never Active Member of Clubs or Organizations: No Attends Club or Organization Meetings: Never Marital Status: Never Intimate Partner Violence: Unknown (08/01/2023) Received from [facility] [place] [facility] Environment Fear of Current or Ex-Partner: Not on file Emotionally Abused: Not on file Physically Abused: Not on file Sexually Abused: Not on file Physically or Sexually Abused: Not on file Housing Stability: High Risk (08/18/2022) Received from [facility] Housing Instability Are you worried or concerned that in the next two months you may not have stable housing that you own, rent or stay in as a part of a household?: Yes Family History: Family History Problem Relation Name Age of Onset Cancer Paternal Grandfather Stroke Paternal Grandmother Medications Prior to Admission: No current facility-administered medications on file prior to encounter. No current outpatient medications on file prior to encounter. Allergies: No Known Allergies REVIEW OF SYSTEMS: Constitutional: Negative for fever, chills, activity change and unexpected weight change. HEENT: Negative for congestion, postnasal drip and sneezing. Eyes: Negative for itching and visual disturbance. Respiratory: Negative for apnea, cough, choking, chest tightness, shortness of breath, wheezing andstridor. Cardiovascular: Negative for chest pain. Gastrointestinal: Negative for nausea, vomiting, abdominal pain, and blood in stool. Positive for diarrhea Genitourinary: Negative for dysuria, frequency and flank pain. Musculoskeletal: Negative for myalgias and joint swelling. Skin: Negative for rash. Neurological: Negative for dizziness, tremors, seizures, syncope, facial asymmetry, speech difficulty, weakness, numbness and headaches. Hematological: Negative for adenopathy. Psychiatric/Behavioral: Negative for suicidal ideas, behavioral problems, self- injury and dysphoricmood. Vitals: BP 115/53 (Patient Position: Other (Comment)) Comment (Patient Position): high fowlers Pulse 72 Temp (!) 38.1 C (100.5 F) (Oral) Resp 16 Ht 5' 2 (1.575 m) Wt 280 lb (127 kg) SpO2 96% BMI 51.21 kg/m BMI Classification: Morbidly Obese (>40.0) Pulse Ox: SpO2 Av.6 % Min: 88 % Max: 96 % Supplemental O2: O2 Flow Rate (L/min): 2 L/min Physical Exam Vitals and nursing note reviewed. Constitutional: Appearance: She is obese. HENT: Head: Normocephalic. Nose: Nose normal. Mouth/Throat: Mouth: Mucous membranes are moist. Cardiovascular: Rate and Rhythm: Normal rate and regular rhythm. Pulmonary: Effort: Pulmonary effort is normal. Comments: Diminished lung sounds on auscultation bilaterally, expiratory wheezing noted on auscultation of bases Abdominal: General: Bowel sounds are normal. Tenderness: There is abdominal tenderness. Comments: LLQ Musculoskeletal: General: Normal range of motion. Skin: General: Skin is warm. Neurological: General: No focal deficit present. Mental Status: She is alert. Psychiatric: Mood and Affect: Mood normal. Behavior: Behavior normal. DATA: CBC: Recent Labs 05/10/24 1047 WBC 10.1 RBC 5.08 HGB 12.7 HCT 41.8 MCV 82.3 RDW 18.6* PLT 203 BMP: Recent Labs 05/10/24 1047 NA 129* K 4.7 CL 98 CO2 23 BUN 19* CREATININE 0.73 GLUCOSE 211* CALCIUM 8.5 ANIONGAP 8 LIVER PROFILE: Recent Labs 05/10/24 1047 AST 20 ALT 17 BILITOT 0.5 ALKPHOS 121 PROT 7.5 PT/INR: No results for input(s): PROTIME, INR in the last 72 hours. CARDIAC ENZYMES: No results for input(s): TROPONINI in the last 72 hours. Procalcitonin: No results found for: PROCAL Urine Culture: No results found for this or any previous visit. COVID-19 PCR: No results for input(s): COVID19 in the last 72 hours. I reviewed: [x] laboratory results [x] radiographic results At the time of today's encounter. Pt was advised of the results. Data: (CAT1) Reviewed 2 notes from different specialty or health system (each=1). (CAT1) Reviewed 2 labs/studies ordered by another provider not previously counted (each=1, panels count as 1). (CAT1) Ordered 2 new labs and/or studies (each=1, panels count as 1). (CAT2) CXR reviewed & showed pulmonary vascular congestion as interpreted by me. (LOW: 2x CAT1 or independent historian MOD: 3x CAT1 or 1x CAT3 EXTENSIVE: 3x CAT1 and 1x CAT3) Assessment Discussed management with the ED provider and agree with hospitalization. Labs reviewed with a sodium of 129, elevated BUN Blood glucose 211 No leukocytosis or anemia however noted to have a band percent increase at 3 Urinalysis is positive for nitrites, leukocyte Estrace but also squamous epithelial cells Acute, acute on chronic, unstable/uncontrolled chronic problems/diagnoses: Subjective diarrhea-concern for gastrointestinal illness, consider obstruction or GI process Bacteriuria-asymptomatic Hyponatremia Acute respiratory insufficiency-does not require home O2, hypoxia noted in emergency department, resolved with supplemental oxygen Fever of unknown origin Stable chronic problems affecting care, new non-acute diagnoses: Congestive heart failure COPD Cerebral palsy Developmental delay Hypertension Hypothyroidism Diabetes mellitus type 2 History of previous tobacco use Leukemia in remission Peripheral vascular disease Plan As a result of the above findings & factors, the following mgmt was pursued: -Medical admission -Will check gastrointestinal panels, C. difficile test -Given new oxygen requirement, GI symptoms, concern for another respiratory cause potentially. Willcheck full respiratory viral panel -proBNP pending, echocardiogram considered and will be based on those results, if elevated would consider further evaluation of potential acute heart failure -Will check urinalysis with urine culture, stool testing to be completed as well as full respiratory panel. -Patient is currently on ceftriaxone for presumed urinary infectious source, we will adjust antibiotics as necessary with workup continued -Will need to clarify home medication list -Continue to follow with facility for documentation of DNR status, at this time patient to be full code as this is what she voiced to me, will need to reach out to guardian for clarification of this -Sliding scale insulin coverage ACHS, hypoglycemia protocol in place -Will order home medications for chronic conditions including statin therapy, thyroid with placement at this time while awaiting full list -Hyponatremia labs -CT abd and pelvis with tenderness on Abd exam - am labs, replace lytes prn - PT/OT/CM/SW - delirium precautions: increase activity - DVT prophylaxis: enoxaparin and encourage ambulation Complexity: Acute illness with systemic symptoms (MOD). Risk: Admission to hospital-level care was considered or occurred (HIGH). Prescription drug/IVF/colloid was initiated, discontinued, adjusted; or reviewed with decision to maintain current orders (MOD). Care and management is being impacted by the following SDOH: low education/difficulty understandingmedical issues (MOD). Advance Directive: No Order Anticipated Discharge - Date - 05/15 - Location - Assisted Living - Pending the following -complete evaluation, symptom improvement Total time spent (which include face to face and non face to face encounters) : 76 minutes. Extended Emergency Contact Information Primary Emergency Contact: ColettelilianSamantha Mobile Relation: Legal Guardian Secondary Emergency Contact: Chasity Ruiz Relation: Parent ADVANCED CARE PLANNING Bharat Manzanares : 1965 Primary Care Physician: DARELL Mckinnon NP The patient and/or family/surrogate voluntarily agreed to participate in ACP services. Patient s cognitive capacity: Alert and oriented x 4 Code Status: [X] [FULL CODE - Continue all advanced life support: CPR,intubation,invasive procedures] [_] [DNR-CCA - DO NOT do CPR, intubation] [_] [DNR-WEAPONS DESIGNER - Comfort care only] [_] DNR form [was/was not] signed Summary of discussion: The patient health care POA/ surrogate is the following: Guardian Samantha, unable to get a hold of via phone, pt requests full code today and [facility] unable to provide DNRCCpaperwork when called as they have listed in her orders Total time spent: 5 minutes were spent discussing the patient's resuscitation status, advance care planning, and end of life care, with patient and/or family/surrogate. DARELL Dior CNP Division of Hospitalist Medicine [facility] Cosigned by Edward Morales MD at 05/10/2024 5:21 PM EST documented in this [facility]12-01-2024 Emergency department Note* Torri Sung RN - 05/10/2024 3:52 PM EST Rn answered call light, patient asking for bed to be adjusted. [place] [id number] Emergency department Note* Torri Sung RN - 05/10/2024 3:42 PM EST RN ordered patient a food tray at this time. [address]01-2024 Emergency department Note* Torri Sung RN - 05/10/2024 2:27 PM EST RN answered call light patient said Sorry I haven't had diarrhea since I've been here RN educated on need for a stool sample if she does go but no reason to be sorry regarding her lack of diarrheawhile in the ED. Patient in no acute distress, breathing is even and unlabored on room air. [address]01-2024 Emergency department Note* Olinda Pina RN - 05/10/2024 12:58 PM EST RN responded to pt call light, repositioned bed at this time, pt denies other needs currently. [address]01-2024 Emergency department Note* Torri Sung RN - 05/10/2024 12:36 PM EST RN answered call light, patient would like an update on her POC, RN notified. Dr. Estrella and Dr. العلي at this time. [address]01-2024 Physician Emergency department Note* Jean Marie العلي DO - 05/10/2024 9:16 AM EST EMERGENCY DEPARTMENT ENCOUNTER Pt Name: Bharat Manzanares Birthdate 1965 Date of evaluation: 05/10/2024 ED Provider: Jean Marie العلي DO CHIEF COMPLAINT Chief Complaint Patient presents with Diarrhea Pt from [facility], [facility] they have an outbreak of Norovirus at the facility. Pt arrives with diarrhea for 1.5 days. Pt awake and alert on arrival. Pt also c/o knee pain chronic and a migraine. HISTORY OF PRESENT ILLNESS (Location/Symptom, Timing/Onset, Context/Setting, Quality, Duration, Modifying Factors, Severity) Note limiting factors. I wore appropriate PPE for the entirety of this encounter. HPI Bharat Manzanares is a 59 y.o. who presents to the emergency department from [facility] for the evaluation of diarrhea. Patient's symptoms started last night, reports an upward of 30 episodes of diarrhea since onset. Her facility recently had a norovirus outbreak. She also feels she has a fever,headache that feels like previous migraine, and abdominal pain but denies chest pain, shortness of breath, or urinary symptoms. Nursing Notes were reviewed. Limitations to history: None Outside historians: EMS REVIEW OF SYSTEMS Review of Systems Pertinent positives and negatives as per HPI. PAST MEDICAL HISTORY Past Medical History: Diagnosis Date Acoustic neuroma ([facility]) 11/28/2015 Overview: acoustic neuroma Onset Date: Jun 29, 2013 Allergic rhinitis Asthma Uncomplicated asthma Astigmatism 04/30/2016 Attention deficit disorder with hyperactivity 03/03/2018 Cerebral palsy ([facility]) CHF (congestive heart failure) ([facility]) ([facility]) Seen at [facility] Dr. 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 Diarrhea Dysphagia 07/09/2013 GERD (gastroesophageal reflux disease) Gingival and periodontal disease 07/09/2013 Hearing loss Hordeolum externum of left lower eyelid 05/03/2017 Hyperglycemia Hyperlipidemia Hypertension Hypoglycemia Hypothyroidism acquired Infantile cerebral palsy ([facility]) ([facility]) 07/09/2013 Overview: updated for 03/25 reg imo load Intractable migraine without aura 09/30/2001 Overview: updated for 03/25 reg imo load Irregular heartbeat Irregular heartbeat Learning disability Low compliance bladder 07/09/2013 Mental retardation 03/03/2018 Migraine Mixed stress and urge urinary incontinence 03/03/2018 Morbid obesity ([facility]) ([facility]) 07/09/2013 Myopia 04/30/2016 Neuropathy Nicotine dependence, cigarettes, with other nicotine-induced disorders Nuclear sclerotic cataract 04/30/2016 OAB (overactive bladder) 07/12/2015 Osteoarthritis Overactive bladder Parasomnia 07/09/2013 Polyneuropathy in diabetes ([facility]) ([facility]) 10/21/2002 Poor dentition Simple chronic bronchitis ([facility]) ([facility]) 07/12/2015 Stress incontinence in female 07/12/2015 Thyroid disease Tobacco abuse Type 2 diabetes mellitus (HCC) Urinary incontinence 07/09/2013 Wears glasses SURGICAL HISTORY Past Surgical History: Procedure Laterality Date COLONOSCOPY DENTAL SURGERY 03/11/2020 extractions x4 DENTAL SURGERY N/A 03/11/2020 SURGICAL EXTRACTION OF TEETH 1, 2, 14, 16 performed by Mitch Mccall DDS at [facility] OR UPPER GASTROINTESTINAL ENDOSCOPY 12/01/2019 EGD BIOPSY performed by Olga Zeng MD at [facility] OR CURRENT MEDICATIONS Previous Medications No medications on file ALLERGIES Patient has no known allergies. FAMILY HISTORY Family History Problem Relation Name Age of Onset Cancer Paternal Grandfather Stroke Paternal Grandmother SOCIAL HISTORY Social History Socioeconomic History Marital status: Single Tobacco Use Smoking status: Every Day Current packs/day: 0.00 Types: Cigarettes Last attempt to quit: 09/15/2020 Years since quittin.6 Smokeless tobacco: Never Tobacco comments: Quit smoking: smokes occassionally Substance and Sexual Activity Alcohol use: No Alcohol/week: 0.0 standard drinks of alcohol Drug use: No Social Drivers of Health Financial Resource Strain: Low Risk (08/18/2022) Received from [facility] Overall Financial Resource Strain (CARDIA) Difficulty of Paying Living Expenses: Not very hard Food Insecurity: No Food Insecurity (02/06/2023) Received from [facility] Hunger Screening Within the past 12 months we worried whether our food would run out before we got money to buy more.: Never True Within the past 12 months the food we bought just didn't last and we didn't have money to get more.: Never True Transportation Needs: No Transportation Needs (08/18/2022) Received from [facility] PRAPARE - Transportation Lack of Transportation (Medical): No Lack of Transportation (Non-Medical): No Physical Activity: Inactive (08/18/2022) Received from [facility] Exercise Vital Sign Days of Exercise per Week: 0 days Minutes of Exercise per Session: 0 min Stress: Stress Concern Present (08/18/2022) Received from [facility] [employer] [place] [employer] - Occupational Stress Questionnaire Feeling of Stress : To some extent Social Connections: Socially Isolated (08/18/2022) Received from [facility] Social Connection and Isolation Panel [NHANES] Frequency of Communication with Friends and Family: More than three times a week Frequency of Social Gatherings with Friends and Family: Never Attends [employer] Services: Never Active Member of Clubs or Organizations: No Attends Club or Organization Meetings: Never Marital Status: Never Received from [facility] Safety & Environment Housing Stability: High Risk (08/18/2022) Received from [facility] Housing Instability Are you worried or concerned that in the next two months you may not have stable housing that you own, rent or stay in as a part of a household?: Yes SCREENINGS PHYSICAL EXAM ED Triage Vitals Temp Heart Rate Resp BP 05/10/24 1010 05/10/24 1006 05/10/24 1006 05/10/24 1006 (!) 38.1 C (100.5 F) 85 18 (!) 155/56 SpO2 Temp Source Heart Rate Source Patient Position 05/10/24 1006 05/10/24 1010 05/10/24 1006 05/10/24 1134 (!) 88 % Oral Monitor Other (Comment) BP Location FiO2 (%) 05/10/24 1134 -- Right arm Physical Exam Vitals and nursing note reviewed. Constitutional: Appearance: Normal appearance. She is obese. HENT: Head: Normocephalic and atraumatic. Nose: Nose normal. Mouth/Throat: Pharynx: Oropharynx is clear. Cardiovascular: Rate and Rhythm: Normal rate and regular rhythm. Pulses: Normal pulses. Heart sounds: Normal heart sounds. Pulmonary: Effort: Pulmonary effort is normal. No respiratory distress. Breath sounds: Normal breath sounds. No wheezing, rhonchi or rales. Abdominal: Palpations: Abdomen is soft. Tenderness: There is abdominal tenderness (Generalized). Musculoskeletal: Right lower leg: Edema present. Left lower leg: Edema present. Skin: General: Skin is warm and dry. Capillary Refill: Capillary refill takes less than 2 seconds. Neurological: Mental Status: She is alert and oriented to person, place, and time. DIAGNOSTIC RESULTS RADIOLOGY (Per Emergency Physician): Interpretation per the Radiologist below, if available at the time of this note: XR chest 1 view Final Result Pulmonary vascular congestion with interstitial edema. Report Dictated on Electronically Signed By: Jessica Link MD Electronically Signed Date/Time: 05/10/2024 11:26 AM EST LABS: Labs Reviewed COMPREHENSIVE METABOLIC PANEL - Abnormal Result Value SODIUM 129 (*) POTASSIUM 4.7 CHLORIDE 98 CARBON DIOXIDE 23 ANION GAP 8 UREA NITROGEN 19 (*) CREATININE 0.73 GLUCOSE 211 (*) CALCIUM 8.5 AST (SGOT) 20 ALT 17 ALKALINE PHOSPHATASE 121 ALBUMIN 3.8 BILIRUBIN, TOTAL 0.5 TOTAL PROTEIN 7.5 eGFR >90.0 CBC WITH AUTO DIFFERENTIAL - Abnormal Auto WBC 10.1 RBC 5.08 Hemoglobin 12.7 Hematocrit 41.8 MCV 82.3 MCH 25.0 (*) MCHC 30.4 (*) RDW 18.6 (*) Platelets 203 MPV 9.7 COMPLETE URINALYSIS - Abnormal Color, Urine Yellow Clarity, Urine Turbid (*) pH, Urine 5.5 Leukocytes, Urine 75 (*) Nitrite, Urine Positive (*) Protein, Urine 50 (*) Glucose, Urine Normal Bilirubin, Urine Negative Ketones, Urine Negative Urobilinogen, Urine Normal Blood, Urine Negative RBC, Urine 3-5 (*) WBC, Urine 6-10 (*) Squamous Epithelial, Urine 6-10 (*) Bacteria, Urine Moderate (*) Mucus, Urine Few Hyaline Casts, Urine Negative SPECIFIC GRAVITY OF URINE (NUMERIC) 1.020 MANUAL DIFFERENTIAL (CELLAVISION) - Abnormal RBC Morphology abnormal Poikilocytes Slight (*) Hypochromia Slight (*) Polychromasia Slight (*) Ovalocytes Slight (*) Neutrophils % 79 Bands % 3 (*) Lymphocytes % 10 (*) Monocytes % 6 Eosinophils % 2 Absolute Neutrophil Count 8.3 (*) Bands Absolute 0.3 (*) Lymphocytes Absolute 1.0 Monocytes Absolute 0.6 Eosinophils Absolute 0.2 Neutrophils Manual 79 Lymphocytes Manual 10 Monocytes Manual 6 Eosinophils Manual 2 (*) Basophils Manual Bands Manual 3 Metamyelocytes Manual Myelocytes Manual Promyelocytes Manual Blasts Manual Atypical Lymphocytes Manual Unclassified Cells, Manual SARS-COV-2, FLU A/B, AND RSV COMBO - Normal SARS-CoV-2 Not Detected Respiratory Syncytial Virus Not Detected Influenza A Not Detected Influenza B Not Detected Narrative: Methodology: real-time, RT-PCR LIPASE - Normal LIPASE 37 MAGNESIUM - Normal MAGNESIUM 1.7 GASTROINTESTINAL PCR PANEL C. DIFFICILE BY PCR WITH REFLEX TO EIA COMPLETE URINALYSIS WITH REFLEX TO CULTURE Narrative: The following orders were created for panel order Complete Urinalysis with reflex to Culture. Procedure Abnormality Status --------- ------ Complete Urinalysis[[id number]] Abnormal Final result Please view results for these tests on the individual orders. NT PRO BNP All other labs were within normal range or not returned as of this dictation. EMERGENCY DEPARTMENT COURSE and DIFFERENTIAL DIAGNOSIS/MDM: Vitals: Vitals: 05/10/24 1010 05/10/24 1048 05/10/24 1134 05/10/24 1538 BP: 124/78 116/67 115/53 BP Location: Right arm Patient Position: Other (Comment) Other (Comment) Pulse: 84 76 72 Resp: 16 16 16 Temp: (!) 38.1 C (100.5 F) TempSrc: Oral SpO2: 94% 96% 96% Weight: Height: The patient presented with a chief complaint of diarrhea. Given her presentation and HPI, concerns for possible dehydration or electrolyte abnormalities. I ordered basic labs, UA, lipase. She was febrile and hypoxic on arrival, improved with 2 L nasal cannula. Otherwise hemodynamically stable. Tylenol given for fever control and pain relief. Workup significant for UA consistent with urinary tract infection, ordered ceftriaxone 1 g. She also is hyponatremic but no evidence of kidney injury that would make me concern for hypovolemia or dehydration. Patient may actually be volume overloaded, so withheld bolus of normal saline at this time. Ordered additional labs including BNP, C. difficile PCR, GI panel, respiratory infectious panel. Pending these labs. Given the patient's new onset oxygen requirement and reported profuse diarrhea with electrolyte abnormalities, this patient likely benefit from admission to the hospital for closer observation and correction of hypoxia and electrolyte abnormalities. Discussed case with Dr. Morales, he will accept patient to the hospital for further management. ED Course as of 05/10/24 1549 [place] May 10, 2024 1355 CHLORIDE: 98 [MJ] ED Course User Index [MJ] Lynn Estrella DO Diagnoses as of 05/10/24 1549 Fever and chills ED Medications managed: Medications cefTRIAXone (Rocephin) 1,000 mg in sodium chloride 0.9 % 50 mL IVPB Mini-Bag Plus (1,000 mg IntraVENous New Bag 05/10/24 1536) acetaminophen (Tylenol) tablet 1,000 mg (1,000 mg Oral Given 05/10/24 1212) PROCEDURES: Unless otherwise noted below, none Procedures FINAL IMPRESSION 1. Fever and chills DISPOSITION Admit 05/10/2024 03:28:44 PM PATIENT REFERRED TO: No follow-up provider specified. DISCHARGE MEDICATIONS: New Prescriptions No medications on file (Comment: Please note this report has been produced using speech recognition software and may contain errors related to that system including errors in grammar, punctuation, and spelling, as well as words and phrases that may be inappropriate. If there are any questions or concerns please feel freeto contact the dictating provider for clarification.) Jean Marie العلي DO (electronically signed) Emergency Medicine Provider Jean Marie العلي DO Resident 05/10/24 6789 Cosigned by Lynn Estrella DO at 05/12/2024 1:28 PM EST relocality Phone: 1(225) 514-276012-01-2024 Physician Emergency department Note* Lynn Estrella DO - 05/10/2024 9:16 AM EST Emergency Department Encounter [facility] EMERGENCY DEPT Patient: Bharat Manzanares : 1965 Date of Evaluation: 05/10/2024 ED Supervising Physician: Lynn Estrella DO I personally evaluated Bharat Manzanares and made/approved the management plan and take responsibility for the patient management. This will serve as my Supervisory note and shared attestation. I did perform a substantive portion of the visit including all aspects of the Medical Decision Making. I wore appropriate PPE for the entirety of this encounter. In brief, Bharat Manzanares is a 59 y.o. that presents to the emergency department from nursing facility with diarrhea. Reported that patient's facility has an outbreak of norovirus. Since yesterday patient has had greater than 30 episodes of nonbloody non tarry diarrhea. Endorses nausea without vomiting as well as generalized abdominal pain. No urinary symptoms, fevers, chest pain, dyspnea or other new symptoms. Focused exam: General: Alert, nontoxic-appearing Eyes: Conjunctiva normal Cardiac: Regular rhythm, normal rate Lungs: No respiratory distress, lungs clear to auscultation Abdomen: Soft, nontender, nondistended Extremities: No peripheral edema Skin: Warm and dry Neuro: no focal deficits Brief ED course/MDM: 59-year-old female presenting to the ED from nursing facility where there is an outbreak of norovirus. Patient is febrile at 38.1 C but hemodynamically stable and she is not tachycardic. C. difficileand GI panel was ordered as well as viral swabs and she is negative for COVID, flu and RSV. She does have a urinary tract infection which was treated with Rocephin. Labs show a hyponatremia of 129 however patient appears fluid overloaded on exam and chest x-ray shows interstitial edema therefore weheld on fluids at this time as it may be a hypervolemic hyponatremia. Patient is also saturating 88% on room air and was placed on nasal cannula which is a new oxygen requirement. This may be due to h er fluid overload. Will plan to admit for new oxygen requirement and monitoring as she may have a clinically worsened status with her profuse diarrhea. Diagnostics interpreted by me: Xray(s) pulmonary edema I personally discussed the patient's management with other clinicians: none All diagnostic, treatment, and disposition decisions were made by myself in conjunction with the Resident. I also supervised ramsey portions of any procedures performed by the Resident. For all further details of the patient's emergency department visit, please see their documentation. (Comment: Please note this report has been produced using speech recognition software and may contain errors related to that system including errors in grammar, punctuation, and spelling, as well as words and phrases that may be inappropriate. If there are any questions or concerns please feel freeto contact the dictating provider for clarification.) Lynn Estrella DO [employer] Lynn Estrella DO 05/10/24 [address] [facility] relocality Phone: 1(493) 790-872907-12-2024 Miscellaneous Notes* Telephone Encounter - LORENZA Vieira - 12/20/2023 1:12 PM EDT Patient had called and left voicemail message requesting return call. SW attempted to call patient back, no answer. Message left. [facility] encounter Note* Telephone Encounter - LORENZA Vieira - 12/20/2023 1:12 PM EDT Patient had called and left voicemail message requesting return call. SW attempted to call patient back, no answer. Message left. [facility] Work Phone: 1(700) 954-364606-10-2024 Miscellaneous Notes* Telephone Encounter - LORENZA Vieira - 11/18/2023 10:35 AM EDT Social Work Encounter: Patient called [facility] to provide general update. She has moved to a new nursing facility in [place], [place]. Patient is receiving Occupational therapy there. Patient calling to request records be sent to new ECF. Patient states they do have some records and she is not sure what they actually need. SW asked patient to confirm records request and SW will send patient form to fill out for request. documented in [facility] encounterProv[facility]06-[facility] Telephone encounter Note* Telephone Encounter - LORENZA Vieira - 11/18/2023 10:35 AM EDT Social Work Encounter: Patient called CRYSTAL to provide general update. She has moved to a new nursing facility in [place], [place]. Patient is receiving Occupational therapy there. Patient calling to request records be sent to new ECF. Patient states they do have some records and she is not sure what they actually need. SW asked patient to confirm records request and SW will send patient form to fill out for request. [facility] [employer] [facility] Work Phone: 1(491) 182-245806-07-2024 Miscellaneous Notes* Telephone Encounter - Yumiko Valdez CMA - 11/15/2023 2:22 PM EDT Patient calling to let you know she has moved and she lives in a chcf now named [facility] at [address] [place] [address] [address], [place] [address]. . She states she won't be able to make any appointments, but wanted to let you know she has good providers taking care ofher there. documented in this encounterProvidence Hospital06-07-2024 Telephone encounter Note* Telephone Encounter - Yumiko Valdez CMA - 11/15/2023 2:22 PM EDT Patient calling to let you know she has moved and she lives in a chcf now named [facility] at [address] [place] [address] [address], [place] [address]. . She states she won't be able to make any appointments, but wanted to let you know she has good providers taking care ofher there. [facility]06-[facility] Miscellaneous Notes* Telephone Encounter - Cleo Sr - 11/15/2023 1:50 PM EDT Received call today 11/15/23 1:50 from patient who's requesting a call back. She said that she's on alock down at [facility] located at [facility] [address] [place] [address]. She saidthat they think she has a chemical imbalance and that's not true, she has brain damage and there's a big difference between the two. She said that she'd like Dr. Samuel to work with their chcf psych nurse practitioner, Storm, to do a neuro psych eval to show her brain damage. She also notedthat the chcf medical territory manager is Saeed Duke and chcf can be reached at phone#:[phone]. Please call back and advise, callback#: [phone]. She said her guardian, Penny Roach, can be reached at phone#: [phone], Ext# 4. * Telephone Encounter - Malinda Shearer - 11/15/2023 1:50 PM EDT Called and spoke with Steph SALDANA at [facility] at [phone] which stated that the Saeed Duke that the patient had mentioned in her message is the medical territory manager of the facility and is only in the office at a certain day and time of the week. That the patient is within the Psychological department of the facility for a reason. That the patient is under guardianship and is unable to make decision medical or financial decision for herself. She has a telephone so we most likely will continue to receive more call like this when the patient is unhappy. Please call back and advise, callback#: [phone]. She said her guardian, Penny Roach, can be reached at phone#: [phone], Ext# [phone]. Please advise * Telephone Encounter - Desire Samuel MD - 11/15/2023 1:50 PM EDT Appears consistent with prior issues. She has had similar episodes in the past but I do not remember if she needed to be admitted to a facility before. * Telephone Encounter - Malinda Shearer - 11/15/2023 1:50 PM EDT Patient has been in correction facility for quite sometime now 2022. She has just been reaching out to us on occasion with issues that she is having. documented in this encounterProvidence Hospital06-07-2024 Telephone encounter Note* Telephone Encounter - Cleo Sr - 11/15/2023 1:50 PM EDT Received call today 11/15/23 1:50 from patient who's requesting a call back. She said that she's on alock down at [facility] located at [facility] [address] [place] [address]. She saidthat they think she has a chemical imbalance and that's not true, she has brain damage and there's a big difference between the two. She said that she'd like Dr. Samuel to work with their chcf psych nurse practitioner, Storm, to do a neuro psych eval to show her brain damage. She also notedthat the chcf medical territory manager is Saeed Duke and chcf can be reached at phone#:[phone]. Please call back and advise, callback#: [phone]. She said her guardian, Penny Marley, can be reached at phone#: [phone], Ext# 4. [facility] [id number] Telephone encounter Note* Telephone Encounter - Malinda Shearer - 11/15/2023 1:50 PM EDT Called and spoke with Steph SALDANA at [facility] at [phone] which stated that the Saeed Duke that the patient had mentioned in her message is the medical territory manager of the facility and is only in the office at a certain day and time of the week. That the patient is within the Psychological department of the facility for a reason. That the patient is under guardianship and is unable to make decision medical or financial decision for herself. She has a telephone so we most likely will continue to receive more call like this when the patient is unhappy. Please call back and advise, callback#: [phone]. She said her guardian, Penny Roach, can be reached at phone#: [phone], Ext# 4. Please advise [facility]06-[facility] Telephone encounter Note* Telephone Encounter - Desire Samuel MD - 11/15/2023 1:50 PM EDT Appears consistent with prior issues. She has had similar episodes in the past but I do not remember if she needed to be admitted to a facility before. [facility] [employer] [id number] Telephone encounter Note* Telephone Encounter - Malinda Shearer - 11/15/2023 1:50 PM EDT Patient has been in correction facility for quite sometime now 2022. She has just been reaching out to us on occasion with issues that she is having. [facility]05-[facility] Miscellaneous Notes* Telephone Encounter - LORENZA Vieira - 10/16/2023 3:07 PM EDT Social Work Encounter: Patient called this SW to advise that she is currently in [facility] followingrespiratory issues. Patient states she is well now, likes her chcf- [place], [place]. SW provided support, no other needs identified. documented in this encounterProvidence Hospital05-08-2024 Telephone encounter Note* Telephone Encounter - LORENZA Vieira - 10/16/2023 3:07 PM EDT Social Work Encounter: Patient called this CRYSTAL to advise that she is currently in [facility] followingrespiratory issues. Patient states she is well now, likes her chcf- [facility] in [place], [place]. SW provided support, no other needs identified. [employer] Work Phone: 1(613) 968-373504-29-2024 NoteEXAM INFORMATION: Examination: [facility] XRAY CHEST POST PROCEDURE Date of Exam: 10/07/2023 7:57 pm Diagnosis/Reason for Exam: ETT placement; Shortness of breath Additional History: ETT placement Number of Images: 1 Comparison: RAD - Chest - Portable - 1 View dated 10/07/2023 DISCUSSION: The endotracheal tube terminates 4.2 cm above the karina. The enteric tube courses below the hemidiaphragms although the tip is not included on the radiograph. Perihilar and basilar opacities are again noted suggesting edema or pneumonitis. There is no pneumothorax seen. No obvious effusion. Moderate cardiomegaly is suspected. The patient is rotated which limits evaluation. Additionally, the left base is not entirely included on the radiograph. This further limits the study. IMPRESSION The endotracheal tube appears in satisfactory position as detailed above. Bilateral pulmonary opacities are noted suggesting edema or atypical pneumonia. The exam is limited as detailed above. Interpretation by Oli Nixon M.D. Professional Interpretation by Radiology Reading workstation: [address] 09-12-2023 Miscellaneous Notes* Telephone Encounter - LORENZA Vieira - 09/12/2023 4:21 PM EDT Social Work Encounter: Patinet calling in to advise the office that patient is moving to a new nursing facility in [place], [place]. Patient will be in [facility]. Patient states she is doing well and denies other needs at present time. documented in this encounterBrightlook HospitalAgencyport Software04-04-2024 Telephone encounter Note* Telephone Encounter - LORENZA Vieira - 09/12/2023 4:21 PM EDT Social Work Encounter: Patinet calling in to advise the office that patient is moving to a new nursing facility in [place], [place]. Patient will be in [facility]. Patient states she is doing well and denies other needs at present time. [employer] Work Phone: 1(595) 399-685803-11-2024 Miscellaneous Notes* Telephone Encounter - LORNEZA Vieira - 08/19/2023 2:07 PM EDT Social Work Encounter: Patient called this SW to advise that she thinks she has scabies again. SW advised patient to [facility] nursing staff at the chcf know so that they can address it for her. Patient verbalized understanding. documented in this encounterProvidence Hospital03-11-2024 Telephone encounter Note* Telephone Encounter - LORENZA Vieira - 08/19/2023 2:07 PM EDT Social Work Encounter: Patient called this SW to advise that she thinks she has scabies again. SW advised patient to [facility] nursing staff at the chcf know so that they can address it for her. Patient verbalized understanding. [employer] Work Phone: [phone]) 785-121202-16-2024 Miscellaneous Notes* Telephone Encounter - LORENZA Vieira - 07/26/2023 11:42 AM EST Social Work Encounter: Patient called this SW to provide update that she is still in same SNF for [facility]. Patient seeking support as she does feel lonely at times. Intervention: Support provided. No other complaints or concerns at present time. documented in this encounterProvidence Hospital02-16-2024 Telephone encounter Note* Telephone Encounter - LORENZA Vieira - 07/26/2023 11:42 AM EST Social Work Encounter: Patient called this SW to provide update that she is still in same SNF for longterm care. Patient seeking support as she does feel lonely at times. Intervention: Support provided. No other complaints or concerns at present time. [employer] Work Phone: 1(979) 937-524002-01-2024 Miscellaneous Notes* Telephone Encounter - LORENZA Vieira - 07/11/2023 1:24 PM EST Social Work Encounter: Patient called SW and left message requesting a return call. SW called patient back, patient statesbettie is still at current SNF. Patient now planning to remain in current SNF longterm and wishing tolet office know. documented in this encounterBrightlook HospitalAgencyport Software02-01-2024 Telephone encounter Note* Telephone Encounter - LORENZA Vieira - 07/11/2023 1:24 PM EST Social Work Encounter: Patient called SW and left message requesting a return call. SW called patient back, patient rachael is still at current SNF. Patient now planning to remain in current SNF [facility] and wishing tolet office know. [employer] Work Phone: 1(766) 131-212101-25-2024 Miscellaneous Notes* Telephone Encounter - Penny Adrian - 07/04/2023 9:36 AM EST PT CALLED REQUESTING RECORDS TO BE FAXED TO HER. TRANSFERRED HER TO MEDICAL RECORDS. PENNY ADRIAN documented in this encounterBrightlook HospitalAgencyport Software01-25-2024 Telephone encounter Note* Telephone Encounter - Penny Adrian - 07/04/2023 9:36 AM EST PT CALLED REQUESTING RECORDS TO BE FAXED TO HER. TRANSFERRED HER TO MEDICAL RECORDS. PENNY ADRIAN [facility]01-18-2024 Miscellaneous Notes* Telephone Encounter - LORENZA Vieira - 06/27/2023 10:17 AM EST Social Work Encounter: Patient called this SW to provide general update. She is still at current facility but may move to another facility at some point in the future. Patient states she has given up soda pop and her diabetes numbers have improved. Patient is currently residing in locked behavioral unit, so does call SW from time to time for support or to provide general updates on her status. documented in this encounterRegional Medical CenterSearchwords Pty Ltd01-18-2024 Telephone encounter Note* Telephone Encounter - LORENZA Vieira - 06/27/2023 10:17 AM EST Social Work Encounter: Patient called this SW to provide general update. She is still at current facility but may move to another facility at some point in the future. Patient states she has given up soda pop and her diabetes numbers have improved. Patient is currently residing in locked behavioral unit, so does call SW from time to time for support or to provide general updates on her status. [employer] Work Phone: 1(110) 868-115201-15-2024 Miscellaneous Notes* Telephone Encounter - Penny Adrian - 06/24/2023 12:41 PM EST PT LEFT VM REQUESTING US TO COME TO THE DETENTION TO HELP HER WITH HER HEARING AIDS. CALLED DETENTION AND SPOKE TO ANDRA, SAP HANA DEVELOPER, EXPLAINED TO HER THAT WE DONT COME TO THE NURSING HOMES. IF PT NEEDS SOMETHING WITH HEARING AIDS, THEY CAN BE DROPPED OFF TO OUR OFFICE, OR APPT MADE AND PT COME IN. PENNY ADRIAN documented in this encounterRegional Medical CenterSearchwords Pty Ltd01-15-2024 Telephone encounter Note* Telephone Encounter - Penny Normanyle - 06/24/2023 12:41 PM EST PT LEFT VM REQUESTING US TO COME TO THE DETENTION TO HELP HER WITH HER HEARING AIDS. CALLED DETENTION AND SPOKE TO ANDRA, SAP HANA DEVELOPER, EXPLAINED TO HER THAT WE DONT COME TO THE NURSING HOMES. IF PT NEEDS SOMETHING WITH HEARING AIDS, THEY CAN BE DROPPED OFF TO OUR OFFICE, OR APPT MADE AND PT COME IN. PENNY ADRIAN [facility]01-02-2024 Miscellaneous Notes* Telephone Encounter - LORENZA Vieira - 06/11/2023 9:30 AM EST [facility] Care Social Work follow up attempt. No answer, voicemail message left stating reason for call and requesting patient return call if would like further assistance. documented in this encounterProvidence Hospital01-02-2024 Telephone encounter Note* Telephone Encounter - LORENZA Vieira - 06/11/2023 9:30 AM EST [facility] Primary Care Social Work follow up attempt. No answer, voicemail message left stating reason for call and requesting patient return call if would like further assistance. [facility] Work Phone: [phone]) 459-953712-29-2023 Miscellaneous Notes* Telephone Encounter - LORENZA Vieira - 06/07/2023 11:41 AM EST Social Work Encounter: Patient called in to to provide update that she has not moved nursing homes at this time. Patient states facility in [place] ended up not taking her and she is still at [facility]. Patient currently states she would like to move to [place] and has been writing letters telling her guardian and others that. Patient denies any needs for this to address, simply calling in for support and to provide update. documented in this encounterBrightlook HospitalAgencyport Software12-29-2023 Telephone encounter Note* Telephone Encounter - LORENZA Vieira - 06/07/2023 11:41 AM EST Social Work Encounter: Patient called in to to provide update that she has not moved nursing homes at this time. Patient states facility in [place] ended up not taking her and she is still at [facility]. Patient currently states she would like to move to [place] and has been writing letters telling her guardian and others that. Patient denies any needs for this to address, simply calling in for support and to provide update. [employer] Work Phone: 1([phone]) 442-809004-10-2023 NotePhysical Therapy This patient was evaluated in a multidisciplinary wheelchair seating clinic. Please see attached letter of medical necessity for further supporting documentation.[facility]04-10-2023 Note Attestation signed by Johana Clifford MD at 09/17/2022 4:53 PM I personally saw and examined the patient on the same date of service as resident/fellow . I discussed the findings and therapeutic plan with the resident/fellow . I agree with the documentation, except for any edits/updates below. Teaching Physician's Revisions: Patient seen and examined with Dr. Paulino today. I concur with above findings. [facility] Department of Physical Medicine and Rehabilitation Seating Clinic Date: 09/17/22 Referring Provider: No referring provider defined for this encounter. Bharat Manzanares is a 57 y.o. year old female patient with infantile cerebral palsy. She struggles to complete ADLs and has difficulty using wheelchair over different obstacles including carpet and long distances within the community. Chief Complaint Patient presents with Seating visit Currently living in elderly community living apartment alone . She is looking to get into the assisted living community. She does her own cooking, she needs assistance with bathing and has a shower seat but nobody is actively assisting her. He wheelchair does not fit into the doorways of her apartment Within the community, patient is using standard wheelchair, 32 inch wide. Patient is able to communicate appropriately. Current mobility device is 2 years old and in fair condition Cardio/Pulmonary Status: CHF, COPD, HTN, active DVT Orthopedic/Orthotics: Are orthopedic issues present that will influence seating, such as scoliosis, pelvic/hip asymmetry etc. No Contractures/Spasticity: Does the person have abnormal tone or spasticity, and how does this impact positioning? No Neuro/Motor: What is the upper and lower extremity function? Function in bilateral UE and LE but weakness and easily fatigued Is sensation normal? Yes, to light touch Pressure Injuries: History of complication? No Pressure relief ability? Yes Bowel/Bladder: Issues of bowel and bladder incontinence? Yes: Patient reports this occurs as she has mixed stress and urge incontinence and frequently cannot get to bathroom fast enough to use the toilet Type of program? None currently Sitting/Standing/Balance: How good is the client's head and trunk control? Poor trunk control how is the client's balance? Poor Transfers: How does the client transfer in and out of wheelchair? With success, she is able to stand and pivot to get into and out of wheelchair Mobility: Level of ambulation vs assisted mobility, uses wheelchair almost exclusively Current Equipment: [Vendor/Year/Modifications] [employer] wheelchair used that she purchased from neighbor Falls: At least 5 falls in the last 6 months ADLs: Bathing/Dressing/Feeding: Difficulty with bathing, able to dress herself, and able to prepare her own meals Transport: How will the wheelchair be transported? / Consider environments in which wheelchair will be used (home, work, school, leisure, recreation) She currently uses taxis for transportation or her [id number] for assistance if taxi is not available Utility: What are the expectations for how this wheelchair will be used? Making it to restroom in timely way, enjoiying the outdoors, being able to navigate entry and exiting apartment ROS: Denies fevers, chills, nausea General: Pleasant, sitting comfortably in the room in no acute distress HEENT: No obvious deformities CVS: Extremities well perfused, no peripheral cyanosis in exposed areas Lung: Normal effort of breathing, no accessory muscle usage Psyche: Mood and affect appropriate and normal Skin: There is no petechiae, purpura noted. Skin is also warm and dry to touch. Neurologically: Alert, oriented, followed commands, sensation intact to light touch Musculoskeletal exam: Moves all extremities spontaneously. For flexion and extension strength RUE 4+/5, 4- on LUE Lower extremities RUE 4+/5, LUE 4-/5 Gait: Slow and quickly fatigued with RW Assessment/Plan Encounter Diagnoses Name Primary? Infantile cerebral palsy (CMS/HCC) Yes Mixed stress and urge urinary incontinence Patient has mobility limitation that impairs the ability to perform more than one mobility related ADL's in the home. Patient cannot ambulate safely with cane or walker. Patient does have sufficient upper extremity function to operate manual wheelchair. But she finds it difficult to traverse over carpet and other surfaces with any kind of distance this becomes impossible for her to traverse Patient home does not provide adequate space for proper use of a scooter. Patient does not have strength or balance to operate a scooter. Patient does have the mental capacity to operate a power wheelchair. A Power wheelchair will signif (more content not included)...[facility]03-31-2023 NoteConsulted for assessment. [facility]'s legal guardian is Jessica Pierce [phone]. Briefly reviewed [facility] records as patient recently discharged from the agency. Attempts were made for patient to be transferred to a correction facility, but insurance denied as patient was walking 200'. She was discharged to a [facility] at [address] as arranged by her legal guardian. Called Hafsa [phone] at [facility] who reported that patient complains about everything. She reported that the father picked her up from the assisted as she plans to stay at her apartment at [address] [place] [address] in [place], [place]. halfway is willing to accept her back. Message left for Jessica Pierce. Approached patient and her father. She appeared with tangential and negative thought process. She reported concerns about her [place]'s hospitalization. Father reported that he did not know that insurance denied SNF placement. Patient alleged that [facility] is willing to accept. Called the agency, who denied referral. Patient reported concerns about the assisted, alleging that the home does not make food in accordance with her diet and the shower is too small. According to the assisted, the patient oscillated between loving and hating the assisted. Patient wants to admit to an assisted living. Advised will defer to her guardian for placement. She confirmed that if [facility] will not accept, she will discharge to her apartment. 12:40 Received call from Jessica Pierce, patient's guardian who consented for patient to return to assisted or the apartment. He voiced he is trying to help patient as the apartment is bed bug infested[facility] History of Present illness Narrative* Vasiliy Wise - 09/04/2022 12:24 PM EDT Speech Language Pathology Speech Language Pathology [facility] Cognitive Treatment Note Date: 09/04/2022 Patient s Name: Bharat Manzanares Diagnosis: Patient Active Problem List Diagnosis Code Stress incontinence in female N39.3 OAB (overactive bladder) N32.81 Type 2 diabetes mellitus without complication (HCC) E11.9 Acquired hypothyroidism E03.9 Simple chronic bronchitis (HCC) J41.0 Migraine G43.909 Acoustic neuroma (HCC) D33.3 H/O gastroesophageal reflux (GERD) Z87.19 Medication refill Z76.0 Asthma J45.909 Astigmatism H52.209 Attention deficit disorder with hyperactivity F90.9 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 Chronic obstructive lung disease (HCC) J44.9 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 Dysphagia R13.10 Essential hypertension I10 Gastroesophageal reflux disease K21.9 Gingival and periodontal disease K05.6, K06.9 Hearing loss H91.90 Hyperlipidemia E78.5 Infantile cerebral palsy ([facility]) G80.9 Intractable migraine without aura G43.019 Low compliance bladder N31.8 Mental retardation F79 Mixed stress and urge urinary incontinence N39.46 Morbid obesity ([facility]) E66.01 Myopia H52.10 Nuclear sclerotic cataract H25.10 Obesity E66.9 Parasomnia G47.50 Polyneuropathy in diabetes ([facility]) E11.42 Pure hyperglyceridemia E78.1 Tobacco use disorder F17.200 Need for prophylactic vaccination and inoculation against varicella Z23 Family history of colon cancer Z80.0 Infected dental caries K02.9, K04.7 Megaloblastic anemia due to vitamin B12 deficiency D53.1 Acute bacterial sinusitis J01.90, B96.89 Encounter for smoking cessation counseling Z71.6 Cellulitis of right lower extremity L03.115 Deep vein thrombosis (DVT) of lower extremity ([facility]) I82.409 Leg swelling M79.89 Infestation by bed bug B88.8 Chronic pruritus L29.9 Failure to thrive in adult R62.7 Dizziness R42 Unable to care for self Z78.9 Pain: Pt did not c/o pain Cognitive Treatment Treatment time: 9:47 - 10:13 Subjective: [x] Alert [x] Cooperative [] Confused [] Agitated [] Lethargic Objective/Assessment: Communication and Problem Solving: Pt believes that her expressive and language disorder is negatively effecting her ability to communicate with her family members in person and on the phone. Pt presented the AMMUNITION AND EXPLOSIVES HANDLER with a list of strategies to improve communicate efficiency that she had previously been given. The Pt was asked to chose two strategies that would most benefit her when communicating with her sister. The Pt chose: patience when communicating and using short and simple sentences. The Pt was asked to make an advocacy statement with those two strategies in it. She wrote: Debbie please be patient with me. I want you to speak in short and simple sentences. Education was provided about conversational turn taking and avoiding redundancy. Pt is actively looking for a assisted and personally reaching out to different sources. Pt wishesto receive ongoing speech therapy throughout her lifetime in order to perform maintenance on her skills and strategies learned in therapy. Plan: [x] Continue ST services [] Discharge from ST: Discharge recommendations: [] Further therapy recommended at discharge.The patient should be able to tolerate at least 3 hours of therapy per day over 5 days or 15 hours over 7 days. [x] Further therapy recommended at discharge. [] No therapy recommended at discharge. Treatment completed by:Completed by: VASILIY WISE Office Coordinator Receptionist Clinician Cosigned By: Penny Govea M.S.CCC/AMMUNITION AND EXPLOSIVES HANDLER * Gerda Najera - 09/04/2022 11:36 AM EDT SPIRITUAL CARE DEPARTMENT - [facility] [place] PROGRESS NOTE Shift date: 09/04/2022 Shift day: Saturday Shift # 1 Room # [id number]/[id number] Name: Bharat Manzanares Mormonism: [employer] Referral: Nurse Admit Date & Time: 08/24/2022 12:11 PM Assessment: Bharat Manzanares is a 57 y.o. female in the hospital. Valance Cutter responded to patient request via phone call from nurse for prayer with auto porter. Upon entering the room bond underwriter observes the patient sitting up in recliner watching television, appearing calm. The patient expressed feelings of frustration and isolation, as well as anxiousness regarding where they will live after discharge. The patient named that they are getting antsy and expressed feeling powerlessness due to the lack of information being shared with them. The patient also shared that they perceive medical staff does not believethat they are incontinent and this makes them feel frustrated. The patient showed the auto porter hand-written page of information regarding various post-discharge possibilities and the auto porter encouraged the patient to share it with their case monitor.They expressed a desire to talk to the case monitor/director of social work more regularly so that they can better understand what is happening/will happen next. It appeared that the patient's main concern is finding house where they feel safe and have access to needed assistance and resources. Intervention: Planer Chain Offbearer introduced self and title as auto porter Planer Chain Offbearer offered space for the patient to express feelings, needs, and concerns and provided a ministry presence. The bond underwriter prayed with and for the patient, medical staff, and all those engaged in the patient's case. Outcome: The patient expressed gratitude and expressed desire for continual spiritual care visits. Plan: Chaplains will remain available to offer spiritual and emotional support as needed. 09/04/22 1134 Encounter Summary Service Provided For: Patient Referral/Consult From: Nurse Support System Other (Comment) (Legal Guardian) Last Encounter 09/04/22 Complexity of Encounter Low Begin Time 1045 End Time 1115 Total Time Calculated 30 min Spiritual/Emotional needs Type Spiritual Support Assessment/Intervention/Outcome Assessment Anxious;Calm;Hopeful Intervention Active listening;Explored/Affirmed feelings, thoughts, concerns;Prayer (assurance of)/[place];Sustaining Presence/Ministry of presence Outcome Comfort;Connection/Belonging;Engaged in conversation;Expressed feelings, needs, and concerns;Expressed Gratitude;Venting emotion . Spiritual Care Department [facility] [phone] * Vitor Burnham - 09/04/2022 12:13 AM EDT SPIRITUAL CARE DEPARTMENT - [facility] [place] PROGRESS NOTE Shift date: 09.03.2022 Shift day: Saturday Shift # 2 Room # [id number] Name: Bharat Manzanares Mormonism: unknown Place of hoahaoism: unknown Referral: Routine Visit Admit Date & Time: 08/24/2022 12:11 PM Assessment: Bharat Manzanares is a 57 y.o. female in the hospital and was referred by nurse request for support.Upon entering the room bond underwriter observes patient appearing anxious and concerned. States concern overher bladder issues and other medical concerns. Patient discussed concerns around placement in a care facility after discharge and what will happen to her belongings at home. Much of the questions revolve around the issue of bed bugs and whether any of her belongings can be salvaged. Intervention: Planer Chain Offbearer introduced self and title as auto porter Planer Chain Offbearer offered space for the patient to express feelings, needs, and concerns and provided a ministry presence. Provided prayer upon request. Outcome: Patient expressed gratitude. Expressed feelings, thoughts, and concerns. Plan: Chaplains will remain available to offer spiritual and emotional support as needed. . Spiritual Care Department [facility] [phone] 09/03/22 2230 Encounter Summary Service Provided For: Patient Referral/Consult From: Nurse Support System Other (Comment);Parent (Legal Guardian) Last Encounter 09/03/22 Complexity of Encounter Moderate Begin Time 2230 End Time 2300 Total Time Calculated 30 min Encounter Type Follow up Assessment/Intervention/Outcome Assessment Anxious;Decisional conflict;Stress overload Intervention Active listening;Discussed illness injury and it s impact;Explored/Affirmed feelings, thoughts, concerns;Explored Coping Skills/Resources;Prayer (assurance of)/[place] Outcome Engaged in conversation;Expressed feelings, needs, and concerns;Expressed Gratitude * Chris Vallejo - 09/03/2022 3:44 PM EDT SPIRITUAL CARE DEPARTMENT - [facility] [place] PROGRESS NOTE Shift date: 09/03/2022 Shift day: Saturday Shift # 1 Room # [id number] Name: Bharat Manzanares Mormonism: Roman Catholic Place of hoahaoism: Unknown Referral: Nurse Admit Date & Time: 08/24/2022 12:11 PM Assessment: Bharat Manzanares is a 57 y.o. female in the hospital. Upon entering the room bond underwriter observes patient sitting up in bed and awake. Intervention: Planer Chain Offbearer introduced self and title as auto porter. Planer Chain Offbearer offered space for patient to express feelings,needs, and concerns and provided a ministry presence. Patient shared concerns over the uncertainty of her future living arrangements. Patient welcomed prayer from bond underwriter. Outcome: Patient and bond underwriter prayed together. Patient thanked bond underwriter for visit. Plan: Chaplains will remain available to offer spiritual and emotional support as needed. . Spiritual Care Department [facility] [phone] 09/03/22 1542 Encounter Summary Service Provided For: Patient Referral/Consult From: Nurse Support System Automatic Print Developer/Mattress Packer Last Encounter 09/03/22 Complexity of Encounter Low Begin Time 1447 End Time 1520 Total Time Calculated 33 min Assessment/Intervention/Outcome Assessment Decisional conflict;Anxious Intervention Active listening;Explored/Affirmed feelings, thoughts, concerns;Life review/[place];Prayer (assurance of)/[place] Outcome Coping;Engaged in conversation;Expressed feelings, needs, and concerns * Cindy Vangie, ADAM - 09/03/2022 1:59 PM EDT Comprehensive Nutrition Assessment Type and Reason for Visit: RD Nutrition Re-Screen/LOS (7 day length of stay) Nutrition Recommendations/Plan: Continue diet as ordered. Continue to monitor weights, intakes, labs and follow up. Malnutrition Assessment: Malnutrition Status: At risk for malnutrition (Comment) (09/03/22 4926) Context: Chronic Illness Findings of the 6 clinical characteristics of malnutrition: Energy Intake: No significant decrease in energy intake Weight Loss: No significant weight loss Body Fat Loss: Unable to assess Muscle Mass Loss: Unable to assess Fluid Accumulation: Severe Extremities Patient Access Strength: Not Performed Nutrition Assessment: 57 y/o female, admitted related to AFTT, dizziness, unable to care for self. PMH includes, T2DM, dysphagia, hearing loss, MR, pruritis, infestation by bed bug. Diet in place, intakes 76-100%. LBM 08/30, +BS. +2 edema to BLE. Transitional planning in place to ECF. Nutrition Related Findings: Labs/Meds reviewed Wound Type: None Current Nutrition Intake & Therapies: Average Meal Intake: 76-100% Average Supplements Intake: None Ordered ADULT DIET; Regular; 3 carb choices (45 gm/meal) Anthropometric Measures: Height: 5' 2 (157.5 cm) [place] Body Weight (IBW): 110 lbs (50 kg) Current Body Weight: 245 lb 2.4 oz (111.2 kg), IBW. Weight Source: Bed Scale Current BMI (kg/m2): 44.8 Weight Adjustment For: No Adjustment BMI Categories: Obese Class 3 (BMI 40.0 or greater) Estimated Daily Nutrient Needs: Energy Requirements Based On: Formula Weight Used for Energy Requirements: Current Energy (kcal/day): 1700kcal/day Weight Used for Protein Requirements: [place] Protein (g/day): 60-75gmsPRO/day Fluid (ml/day): Per MD Nutrition Diagnosis: No nutrition diagnosis at this time Nutrition Interventions: Food and/or Nutrient Delivery: Continue Current Diet Nutrition Education/Counseling: No recommendation at this time Coordination of Nutrition Care: Continue to monitor while inpatient Goals: Previous Goal Met: (Goal set) Goals: Meet at least 75% of estimated needs, prior to discharge Nutrition Monitoring and Evaluation: Behavioral-Environmental Outcomes: None Identified Food/Nutrient Intake Outcomes: Food and Nutrient Intake Physical Signs/Symptoms Outcomes: Biochemical Data, Nutrition Focused Physical Findings, Weight, Fluid Status or Edema Discharge Planning: No discharge needs at this time Cindy Vences RD Contact: * Frederic cD MD - 09/03/2022 1:38 PM EDT [facility] CDU / OBSERVATION ENCOUNTER ATTENDING NOTE I performed a history and physical examination of the patient and discussed management with the resident or midlevel provider. I reviewed the resident or midlevel provider's note and agree with the documented findings and plan of care. Any areas of disagreement are noted on the chart. I was personally present for the ramsey portions of any procedures. I have documented in the chart those procedures where I was not present during the ramsey portions. I have reviewed the nurses notes. I agree with the chief complaint, past medical history, past surgical history, allergies, medications, social and family history as documented unless otherwise noted below. The Family history, social history, and ROS are effectively unchanged since admission unless noted elsewhere in the chart. This patient was placed in the observation unit for reevaluation for possible admission to the hospital Bharat Manzanares requires a bedside commode due to being confined to one level of the home, and is physically incapable of utilizing regular toilet facilities. Current body weight is Weight: 245 lb 2.4 oz (111.2 kg). Bharat Manzanares was evaluated today and a DME order was entered for variable height hospital bed because she requires assistance for positioning needs not possible in an ordinary bed. Patient needs variability of bed height to perform patient transfers and for personal cares. Current body Weight: 245 lb 2.4 oz (111.2 kg). The need for this equipment was discussed with the patient and she understands and is in agreement. Bharat Manzanares requires a bath/shower chair, and is physically incapable of utilizing regular bathing facilities. Current body weight is Weight: 245 lb 2.4 oz (111.2 kg). The need for this equipment was discussed with the patient and she understands and is in agreement. Frederic Dc MD Attending Emergency Physician * Frederic Kumar - 09/03/2022 2:38 AM EDT SPIRITUAL CARE DEPARTMENT - [facility] [place] PROGRESS NOTE Shift date: 09/02/2022 Shift day: Saturday Shift # 3 Room # [id number] Name: Bharat Manzanares Mormonism: Roman Catholic Place of hoahaoism: Referral: Routine Visit Admit Date & Time: 08/24/2022 12:11 PM Assessment: Bharat Manzanares is a 57 y.o. female in room 446. Upon entering the room bond underwriter observes patient sitting in [place]. Intervention: Planer Chain Offbearer introduced self and title as auto porter. Valance Cutter has history with patient. Patient concerned that she will be homeless. Does not want to go back to per patient, bed bug infested [facility]. Patient asked for prayer that she will be accepted into a safe, clean place to live. Valance Cutter prayed with patient. Outcome: Patient expressed gratitude for emotional and spiritual support. Plan: Chaplains are available 31/12 via [employer]. . Spiritual Care Department [facility] [phone] 09/02/222229 Encounter Summary Service Provided For: Patient Referral/Consult From: Nurse Support System Automatic Print Developer/Mattress Packer;Christianity/[facility] Last Encounter 09/02/22 Complexity of Encounter Moderate Begin Time 2229 End Time 2246 Total Time Calculated 17 min Spiritual/Emotional needs Type Spiritual Support Assessment/Intervention/Outcome Assessment Anxious;Decisional conflict;Compromised coping Intervention Life review/[place];Prayer (assurance of)/[place] Outcome Coping;Expressed Gratitude * Debra Platt - 09/02/2022 2:36 PM EDT SPIRITUAL CARE DEPARTMENT - [facility] [place] PROGRESS NOTE Shift date: 09/02/22 Shift day: Saturday Shift # 2 Room # [id number] Name: Bharat Manzanares Mormonism: Roman Catholic Referral: patient Admit Date & Time: 08/24/2022 12:11 PM Assessment: Bharat Manzanares is a 57 y.o. female in the hospital. Valance Cutter responded to patient's room per request of patient, was welcomed into the room by patient, and observed her to be calm and coping well. Through conversation, auto porter heard feelings of anxiety related to patient's challenges/hopes for her insurance to approve a transfer to a rehabilitation center. Intervention: Planer Chain Offbearer introduced self and title as auto porter Planer Chain Offbearer offered space for the patient to express feelings, needs, and concerns and provided a ministry presence. Valance Cutter practiced active listening, provided a non-anxious presence, and prayed with patient per request. Outcome: Patient seemed to receive comfort from prayer, and expressed gratitude for auto porter support. Plan: Chaplains will remain available to offer spiritual and emotional support as needed. 09/02/22 1435 Encounter Summary Service Provided For: Patient Referral/Consult From: Patient Last Encounter 09/02/22 Complexity of Encounter Low Begin Time 1415 End Time 1435 Total Time Calculated 20 min Spiritual/Emotional needs Type Spiritual Support Assessment/Intervention/Outcome Assessment Anxious;Coping Intervention Active listening;Sustaining Presence/Ministry of presence;Prayer (assurance of)/[place] Outcome Comfort;Expressed Gratitude . Spiritual Care Department [facility] [phone] * VANESA Loo - 09/02/2022 10:27 AM EDT Occupational Therapy Facility/Department: [address] ONC/MED SURG Occupational Therapy Daily Treatment Note Name: Bharat Manzanares : 1965 Date of Service: 09/02/2022 Discharge Recommendations: Patient would benefit from continued therapy after discharge Patient Diagnosis(es): The encounter diagnosis was Failure to thrive in adult. Past Medical History: has a past medical history of Acoustic neuroma ([facility]), Allergic rhinitis, Asthma, Astigmatism, Attention deficit disorder with hyperactivity, Cerebral palsy ([facility]), CHF (congestive heart failure) (HCC), COPD (chronic obstructive pulmonary disease) ([facility]), Dental caries, Developmental academic disorder, Diarrhea, Dysphagia, GERD (gastroesophageal reflux disease), Gingival and periodontal disease, Hearing loss, Hordeolum externum of left lower eyelid, Hyperglycemia, Hyperlipidemia, Hypertension, Hypoglycemia, Hypothyroidism, Infantile cerebral palsy ([facility]), Intractable migraine without aura, Irregular heartbeat, Irregular heartbeat, Learning disability, Low compliance bladder, Mental retardation, Migraine, Mixed stress and urge urinary incontinence, Morbid obesity ([facility]), Myopia, Neuropathy, Nicotine dependence, cigarettes, with other nicotine-induced disorders, Nuclear sclerotic cataract, OAB (overactive bladder), Osteoarthritis, Overactive bladder, Parasomnia, Polyneuropathy in diabetes ([facility]), Poor dentition, Simple chronic bronchitis ([facility]), Stress incontinence in female, Thyroid disease, Tobacco abuse, Type 2 diabetes mellitus ([facility]), Urinary incontinence, and Wears glasses. Past Surgical History: has a past surgical history that includes Upper gastrointestinal endoscopy (12/01/2019); Endoscopy, colon, diagnostic; Dental surgery (03/11/2020); and Dental surgery (N/A, 03/11/2020). Assessment Performance deficits / Impairments: Decreased functional mobility ;Decreased ADL status;Decreased endurance;Decreased high-level IADLs;Decreased fine motor control;Decreased coordination;Decreased strength;Decreased cognition Assessment: pt continued to verbalized concerns with inability to care for self in prior living environment d/t feeling depressed. pt would benefit from further therapy at discharge in order to increase safety and independence with ADLs and functional transfers/functional mobility. Prognosis: Good REQUIRES OT FOLLOW-UP: Yes Activity Tolerance Activity Tolerance: Patient Tolerated treatment well Plan Occupational Therapy Plan Times Per Week: 2-3x/wk Restrictions Restrictions/Precautions Restrictions/Precautions: Up as Tolerated, Contact Precautions Required Braces or Orthoses?: No Position Activity Restriction Other position/activity restrictions: Up with assist, recent R LE DVT Subjective General Chart Reviewed: Yes Patient assessed for rehabilitation services?: Yes Response to previous treatment: Patient with no complaints from previous session Family / Caregiver Present: No Subjective Subjective: Pt reported very little pain, did not give an area of the body or a numeric value. Pt was able to progress with therapy session. General Comment Comments: RN ok'd for therapy this morning. pt agreeable to participate in session and cooperative throughout. Upon arrival pt taking shower and seated on shower chair. Pt completed transfer, functional mobility, and ADLs. Pt finished session and retired to chair. Pt had call light within reach, all needs met and RN in room at end of session. Objective Safety Devices Type of Devices: Call light within reach;Patient at risk for falls;Left in chair;Nurse notified Restraints Restraints Initially in Place: No Bed Mobility Training Bed Mobility Training: No (ELOISA; pt started session in bathroom and ended in chair.) Balance Sitting: Intact (No LOB, sitting EOB/bed side chair, shower chair, static/dynamic activity. SUP, Total time ~20 mins) Standing: Intact (SBS-SUP to ensure safety, no AE, static/dynamic/mobility, total time: ~5 mins) Transfer Training Transfer Training: Yes Overall Level of Assistance: Supervision Interventions: Safety awareness training Sit to Stand: Supervision Stand to Sit: Supervision Gait Overall Level of Assistance: Supervision;Additional time (Pt completed functional mobility from bathroom to EOB to chair. Total time ~1-2 mins) ADL Grooming: Stand by assistance;Independent Grooming Skilled Clinical Factors: SBA for pt safety, pt completed brushing hair and applying powder post shower. UE Bathing: Modified independent UE Bathing Skilled Clinical Factors: Pt completed while seated in shower, pt washed UE/ under UE/ chest/ stomach LE Bathing: Modified independent LE Bathing Skilled Clinical Factors: Pt completed while seated in shower, pt washed LE and groin area UE Dressing: Modified independent UE Dressing Skilled Clinical Factors: Pt completed donning gown and threaded arms into gown, while seated at EOB LE Dressing: Supervision LE Dressing Skilled Clinical Factors: Sitting EOB, doff B socks, S to ensure safety. Toileting: Minimal assistance Toileting Skilled Clinical Factors: Min A for brief management. Pt donned brief and needed assistance with the velcro Cognition Overall Cognitive Status: Exceptions Arousal/Alertness: Appropriate responses to stimuli Following Commands: Follows multistep commands with increased time Attention Span: Difficulty attending to directions;Difficulty dividing attention Problem Solving: Assistance required to correct errors made;Assistance required to identify errors made Insights: Decreased awareness of deficits Initiation: Requires cues for some Sequencing: Requires cues for some Cognition Comment: Pt very talkative. Pt requires verbal cues for safety during transfers and minimal redirection needed to stay on task and answer questions. Orientation Overall Orientation Status: Within Functional Limits Orientation Level: Oriented to person;Oriented to place;Oriented to situation;Oriented to time Education Given To: Patient Education Provided: Role of Therapy;Plan of Care;Transfer Training Education Provided Comments: Importance of OOB activity, participation in therapy session, importance of self-hygiene and taking care of self and asking for help when feelings of depression happen; fair return d/t cognition Education Method: Verbal Barriers to Learning: Cognition Education Outcome: Verbalized understanding;Demonstrated understanding;Continued education needed AM-PAC Score [facility] Inpatient Daily Activity Raw Score: 21 (09/02/22 1020) AM-PAC Inpatient ADL T-Scale Score : 44.27 (09/02/22 1020) ADL Inpatient CMS 0-100% Score: 32.79 (09/02/22 1020) ADL Inpatient CMS G-Code Modifier : CJ (09/02/22 1020) Goals Short Term Goals Time Frame for Short Term Goals: pt will, by discharge Short Term Goal 1: complete LB ADLs and toileting tasks with SBA and set up Short Term Goal 2: complete UB ADLs with mod I Short Term Goal 3: dem supervision during functional transfers/functional mobility with LRD, as needed Short Term Goal 4: dem ~8 minutes dynamic standing tolerance with supervision in order to complete functional tasks Short Term Goal 5: maintain attention to task for ~5 minutes with 1-2 verbal cues for redirection Therapy Time Individual Concurrent Group Co-treatment Time In 926 Time Out 0958 Minutes 31 Timed Code Treatment Minutes: 23 Minutes DALE Loo * Frederic Dc MD - 09/02/2022 8:33 AM EDT [facility] CDU / OBSERVATION ENCOUNTER ATTENDING NOTE I performed a history and physical examination of the patient and discussed management with the resident or midlevel provider. I reviewed the resident or midlevel provider's note and agree with the documented findings and plan of care. Any areas of disagreement are noted on the chart. I was personally present for the ramsey portions of any procedures. I have documented in the chart those procedures where I was not present during the ramsey portions. I have reviewed the nurses notes. I agree with the chief complaint, past medical history, past surgical history, allergies, medications, social and family history as documented unless otherwise noted below. The Family history, social history, and ROS are effectively unchanged since admission unless noted elsewhere in the chart. This patient was placed in the observation unit for reevaluation for possible admission to the hospital Patient for placement. Patient awaiting precertification. Neurontin started yesterday patient request. Frederic Dc MD Attending Emergency Physician * Rachael Washington - 09/01/2022 3:20 PM EDT SPIRITUAL CARE DEPARTMENT - [facility] [place] PROGRESS NOTE Shift date: 09/01/2022 Shift day: Saturday Shift # 1 Room # [id number] Name: Bharat Manzanares Mormonism: Roman Catholic Place of hoahaoism: Referral: Pt request Admit Date & Time: 08/24/2022 12:11 PM Assessment: Pt was sitting in her chair talking on the phone. She asked auto porter to pray with her specifically about the insurance company approving her to go to [facility]. Intervention: Planer Chain Offbearer introduced self and title as auto porter Planer Chain Offbearer offered space for pt to express feelings, needs, and concerns and provided a ministry presence. Valance Cutter prayed with patient. Outcome: Pt expressed appreciation for visit and prayer. Plan: Chaplains will remain available to offer spiritual and emotional support as needed. . Spiritual Care Department [facility] [phone] 09/01/22 1519 Encounter Summary Service Provided For: Patient Referral/Consult From: Patient Last Encounter 09/01/22 Complexity of Encounter Low Begin Time 1505 End Time 1520 Total Time Calculated 15 min Spiritual/Emotional needs Type Spiritual Support Assessment/Intervention/Outcome Assessment Calm Intervention Active listening;Explored/Affirmed feelings, thoughts, concerns;Prayer (assurance of)/[place] Outcome Expressed feelings, needs, and concerns;Expressed Gratitude;Receptive * Abdias Fisher MD - 09/01/2022 8:33 AM EDT OBS/CDU RESIDENT NOTE Patients PCP is: Brice Mcfarland APRN SUBJECTIVE No acute events overnight. Patient feeling well. Awaiting placement. PHYSICAL EXAM General: NAD, AO X 3 Heent: EMOI, PERRL Neck: SUPPLE, NO JVD Cardiovascular: RRR, S1S2 Pulmonary: CTAB, NO SOB Abdomen: SOFT, NTTP, ND, +BS Extremities: +2/4 PULSES DISTAL, NO SWELLING Neuro / Psych: NO NUMBNESS OR TINGLING, MENTATION AT BASELINE PERTINENT TEST /EXAMS I have reviewed all available laboratory results. MEDICATIONS CURRENT loperamide (IMODIUM) capsule 2 mg, 4x Daily PRN metFORMIN (GLUCOPHAGE) tablet 1,000 mg, BID WC nicotine (NICODERM CQ) 14 MG/24HR 1 patch, Daily hydrOXYzine HCl (ATARAX) tablet 10 mg, TID PRN nicotine (NICODERM CQ) 21 MG/24HR 1 patch, Daily PRN ipratropium-albuterol (DUONEB) nebulizer solution 3 mL, Q6H PRN midodrine (PROAMATINE) tablet 5 mg, Daily furosemide (LASIX) tablet 20 mg, BID budesonide-formoterol (SYMBICORT) 80-4.5 MCG/ACT inhaler 2 puff, BID amoxicillin-clavulanate (AUGMENTIN) 500-125 MG per tablet 1 tablet, 3 times per day apixaban (ELIQUIS) tablet 5 mg, BID atorvastatin (LIPITOR) tablet 20 mg, Daily buPROPion (WELLBUTRIN XL) extended release tablet 150 mg, QAM divalproex (DEPAKOTE SPRINKLE) DR capsule 250 mg, BID levothyroxine (SYNTHROID) tablet 200 mcg, Daily pantoprazole (PROTONIX) tablet 40 mg, Daily sodium chloride flush 0.9 % injection 5-40 mL, 2 times per day sodium chloride flush 0.9 % injection 5-40 mL, PRN 0.9 % sodium chloride infusion, PRN ondansetron (ZOFRAN-ODT) disintegrating tablet 4 mg, Q8H PRN Or ondansetron (ZOFRAN) injection 4 mg, Q6H PRN polyethylene glycol (GLYCOLAX) packet 17 g, Daily PRN acetaminophen (TYLENOL) tablet 650 mg, Q6H PRN Or acetaminophen (TYLENOL) suppository 650 mg, Q6H PRN All medication charted and reviewed. CONSULTS IP CONSULT TO CASE MANAGEMENT IP CONSULT TO SPIRITUAL SERVICES IP CONSULT TO SPIRITUAL SERVICES IP CONSULT TO SPIRITUAL SERVICES ASSESSMENT/PLAN Bharat Manzanares is a 57 y.o. female who presents with Unable to care for self - Social work and case management are arranging for placement Cellulitis - Continue Augmentin 100-1 25 every 8 Diabetes - Metformin 1000 twice daily - Low intensity sliding scale DVT - Eliquis 5 mg twice daily Continue home medications and pain control Monitor vitals, labs, and imaging DISPO: pending consults and clinical improvement -- Abdias Fisher MD Emergency Medicine Resident Physician This dictation was generated by voice recognition computer software. Although all attempts are madeto edit the dictation for accuracy, there may be errors in the central office equipment engineer that are not intended. * Frederic Dc MD - 09/01/2022 7:41 AM EDT [facility] CDU / OBSERVATION ENCOUNTER ATTENDING NOTE I performed a history and physical examination of the patient and discussed management with the resident or midlevel provider. I reviewed the resident or midlevel provider's note and agree with the documented findings and plan of care. Any areas of disagreement are noted on the chart. I was personally present for the ramsey portions of any procedures. I have documented in the chart those procedures where I was not present during the ramsey portions. I have reviewed the nurses notes. I agree with the chief complaint, past medical history, past surgical history, allergies, medications, social and family history as documented unless otherwise noted below. The Family history, social history, and ROS are effectively unchanged since admission unless noted elsewhere in the chart. This patient was placed in the observation unit for reevaluation for possible admission to the hospital Patient accepted at facility. Awaiting precertification. See case management notes. No new medical complaint. Patient for placement preferably today. Patient requesting treatment for neuropathy. We will start Neurontin. Patient still awaiting precertification. Frederic Dc MD Attending Emergency Physician * Jacinto Bell - 08/31/2022 10:55 PM EDT SPIRITUAL CARE DEPARTMENT - [facility] [place] PROGRESS NOTE Shift date: 08/31/22 Shift day: Saturday Shift # 2 Room # [id number] Name: Bharat Manzanares Mormonism: Roman Catholic Place of hoahaoism: Referral: Patient Admit Date & Time: 08/24/2022 12:11 PM Assessment: Bharat Manzanares is a 57 y.o. female Intervention: Planer Chain Offbearer introduced self and title as auto porter. Patient appeared receptive to auto porter presence and engaged in conversation. Planer Chain Offbearer offered space for patient to express feelings, needs, and concerns and provided a ministry presence. Patient discussed her possible leaving the hospital to a chcf and appeared hopeful of a good transition. Patient discussed her disability and stated she does not understand medical terminology and does not know what she is signing. Patient made a hand written note stating her disability and asked to contact her legal guardian before she signs for medical treatment. Valance Cutter placed note in patient file. Valance Cutter provided a supportive presence through activelistening and prayer (per patient request). Outcome: Patient expressed gratitude for auto porter visit and remains hopeful of not going back to her apartment and looks ahead to assisted living. Plan: Chaplains will remain available to offer spiritual and emotional support as needed. . Spiritual Care Department [facility] [phone] * Tonia Varela MD - 08/31/2022 10:21 AM EDT [facility] CDU / OBSERVATION ENCOUNTER ATTENDING NOTE I performed a history and physical examination of the patient and discussed management with the resident or midlevel provider. I reviewed the resident or midlevel provider's note and agree with the documented findings and plan of care. Any areas of disagreement are noted on the chart. I was personally present for the ramsey portions of any procedures. I have documented in the chart those procedures where I was not present during the ramsey portions. I have reviewed the nurses notes. I agree with the chief complaint, past medical history, past surgical history, allergies, medications, social and family history as documented unless otherwise noted below. The Family history, social history, and ROS are effectively unchanged since admission unless noted elsewhere in the chart. This patient was placed in the observation unit for reevaluation for possible admission to the hospital Patient admitted to the ETU for failure to thrive. On my exam this morning, patient was sitting up in a chair eating breakfast. She has no new complaints today. She states that she is ready to be discharged. Patient to be discharged home today and placement to SNF can be continued as an outpatient. Tonia Varela MD Attending Emergency Physician * Corina CantuDO - 08/31/2022 7:15 AM EDT OBS/CDU RESIDENT NOTE Patients PCP is: Brice Mcfarland APRN SUBJECTIVE No acute events overnight. Vitals stable, afebrile. Patient accepted and precert started at [facility]. She has no new medical complaints today. Discussion with patient she needs to leave today. Patientvocalized understanding. PHYSICAL EXAM General: NAD, sitting up in chair Heent: normocephalic atraumatic Cardiovascular: RRR, S1S2 Pulmonary: CTAB, NO SOB Abdomen: SOFT, NTTP, ND, +BS Extremities: +2/4 PULSES DISTAL, NO SWELLING, cellulitis continues to improve Neuro / Psych: NO NUMBNESS OR TINGLING, MENTATION AT BASELINE PERTINENT TEST /EXAMS I have reviewed all available laboratory results. MEDICATIONS CURRENT loperamide (IMODIUM) capsule 2 mg, 4x Daily PRN metFORMIN (GLUCOPHAGE) tablet 1,000 mg, BID WC nicotine (NICODERM CQ) 14 MG/24HR 1 patch, Daily hydrOXYzine HCl (ATARAX) tablet 10 mg, TID PRN nicotine (NICODERM CQ) 21 MG/24HR 1 patch, Daily PRN ipratropium-albuterol (DUONEB) nebulizer solution 3 mL, Q6H PRN midodrine (PROAMATINE) tablet 5 mg, Daily furosemide (LASIX) tablet 20 mg, BID budesonide-formoterol (SYMBICORT) 80-4.5 MCG/ACT inhaler 2 puff, BID amoxicillin-clavulanate (AUGMENTIN) 500-125 MG per tablet 1 tablet, 3 times per day apixaban (ELIQUIS) tablet 5 mg, BID atorvastatin (LIPITOR) tablet 20 mg, Daily buPROPion (WELLBUTRIN XL) extended release tablet 150 mg, QAM divalproex (DEPAKOTE SPRINKLE) DR capsule 250 mg, BID levothyroxine (SYNTHROID) tablet 200 mcg, Daily pantoprazole (PROTONIX) tablet 40 mg, Daily sodium chloride flush 0.9 % injection 5-40 mL, 2 times per day sodium chloride flush 0.9 % injection 5-40 mL, PRN 0.9 % sodium chloride infusion, PRN ondansetron (ZOFRAN-ODT) disintegrating tablet 4 mg, Q8H PRN Or ondansetron (ZOFRAN) injection 4 mg, Q6H PRN polyethylene glycol (GLYCOLAX) packet 17 g, Daily PRN acetaminophen (TYLENOL) tablet 650 mg, Q6H PRN Or acetaminophen (TYLENOL) suppository 650 mg, Q6H PRN All medication charted and reviewed. CONSULTS IP CONSULT TO CASE MANAGEMENT IP CONSULT TO SPIRITUAL SERVICES IP CONSULT TO SPIRITUAL SERVICES IP CONSULT TO SPIRITUAL SERVICES ASSESSMENT/PLAN Bharat Manzanares is a 57 y.o. female who presents with Inability to care for self. Patient for social work and case management intervention. See notes from both. halfway did onsite visit with patient yesterday Discussion with patients sister and family yesterday regarding placement PT/OT Cellulitis. Ongoing Augmentin use twice daily. Patient responding to treatment. We will continue. Patient refusing antibiotics, educated on importance of taking them. Last day today. Hx of DVT, on anticoagulation Diabetes: Poorly controlled sugars in general. Patient on metformin. Patient on glimepiride at home. As needed sliding scale Continue home medications and pain control Monitor vitals, labs, and imaging DISPO: pending consults and clinical improvement -- Corina Cantu DO Emergency Medicine Resident Physician This dictation was generated by voice recognition computer software. Although all attempts are madeto edit the dictation for accuracy, there may be errors in the central office equipment engineer that are not intended. * Jacinto Bell - 08/30/2022 11:59 PM EDT SPIRITUAL CARE DEPARTMENT - [facility] [place] PROGRESS NOTE Shift date: 08/30/22 Shift day: Shift # 2 Room # [id number] Name: Bharat Manzanares Mormonism: Place of hoahaoism: Referral: Patient Admit Date & Time: 08/24/2022 12:11 PM Assessment: Bharat Manzanares is a 57 y.o. female Intervention: Planer Chain Offbearer introduced self and title as auto porter. Patient did not appear to mind auto porter presence and engaged in conversation. Planer Chain Offbearer offered space for patient to express feelings, needs, and concerns and provided a ministry presence. Patient remains hopeful in getting into assisted living/chcf and discussed her need for additional help. Valance Cutter provided a supportive presence through activelistening and words of affirmation. Patient requested prayer which was facilitated by auto porter. Outcome: Patient remains hopeful of a new living facility and not going back to her apartment. Plan: Chaplains will remain available to offer spiritual and emotional support as needed. . Spiritual Care Department [facility] [phone] * Frannie Baca RN - 08/30/2022 9:24 PM EDT Pt refused to take augmentin despite education and encouragement. Will re- attempt with next dose due. * Debra Platt - 08/30/2022 6:01 PM EDT SPIRITUAL CARE DEPARTMENT - [facility] [place] PROGRESS NOTE Shift date: 08/30/22 Shift day: Shift # 2 Room # [id number] Name: Bharat Manzanares Mormonism: Roman Catholic Place of hoahaoism: [employer] Referral: director of social work Admit Date & Time: 08/24/2022 12:11 PM Assessment: Bharat Manzanares is a 57 y.o. female in the hospital. Valance Cutter responded to patient's room per referral from a director of social work for prayer/support. Valance Cutter was welcomed into the room by patient, who was sitting up in a chair, and observed her to be experiencing anxiety. Through conversation, chaplainheard feelings of frustration and powerlessness related to her medications and potentially delayed transfer to a correction facility. Intervention: Planer Chain Offbearer introduced self and title as auto porter Planer Chain Offbearer offered space for the patient to express feelings, needs, and concerns and provided a ministry presence. Valance Cutter provided a non-anxious presence, practiced active listening, and prayed with patient per request. Outcome: Patient vented emotion throughout visit and expressed gratitude for auto porter support. Patient requested a follow-up from a previous visit with another auto porter (Claude) if/when they are available. Plan: Chaplains will remain available to offer spiritual and emotional support as needed. Valance Cutter provided referral to requested auto porter. 08/30/22 1759 Encounter Summary Service Provided For: Patient Referral/Consult From: (director of social work) Support System Automatic Print Developer/Mattress Packer Last Encounter 08/30/22 Complexity of Encounter Moderate Begin Time 1735 End Time 1750 Total Time Calculated 15 min Spiritual/Emotional needs Type Emotional Distress Assessment/Intervention/Outcome Assessment Anxious Intervention Sustaining Presence/Ministry of presence Outcome Expressed Gratitude;Venting emotion Plan and Referrals Plan/Referrals Continue Support (comment) . Spiritual Care Department [facility] [phone] * Frederic Dc MD - 08/30/2022 5:27 PM EDT [facility] CDU / OBSERVATION ENCOUNTER ATTENDING NOTE I performed a history and physical examination of the patient and discussed management with the resident or midlevel provider. I reviewed the resident or midlevel provider's note and agree with the documented findings and plan of care. Any areas of disagreement are noted on the chart. I was personally present for the ramsey portions of any procedures. I have documented in the chart those procedures where I was not present during the ramsey portions. I have reviewed the nurses notes. I agree with the chief complaint, past medical history, past surgical history, allergies, medications, social and family history as documented unless otherwise noted below. The Family history, social history, and ROS are effectively unchanged since admission unless noted elsewhere in the chart. This patient was placed in the observation unit for reevaluation for possible admission to the hospital Placement has been found for the patient. Received request for Imodium which we have done. Patient without other medical complaint. Visit by psych personnel. Patient accepted and awaiting preapproval. For reassessment if still here tomorrow. Patient with no new medical complaint Frederic Dc MD Attending Emergency Physician * Flor Hines PT - 08/30/2022 1:41 PM EDT Physical Therapy Facility/Department: [address] ONC/MED SURG Daily Treatment Note NAME: Bharat Manzanares : 1965 Date of Service: 08/30/2022 Discharge Recommendations: Patient would benefit from continued therapy after discharge PT Equipment Recommendations Equipment Needed: No Other: Pt own rolling walker and WC Patient Diagnosis(es): The encounter diagnosis was Failure to thrive in adult. Assessment Pt cooperative, needs encouragement to move but easily persuaded to participate with PT. Talks a lot and needs frequent redirection to continue participating with ex and mobility. Activity Tolerance: Patient tolerated treatment well;Patient limited by fatigue Equipment Needed: No Other: Pt own rolling walker and WC Plan Physcial Therapy Plan General Plan: 3-5 times per week Current Treatment Recommendations: Strengthening;Balance training;Transfer training;Functional mobility training;Gait training;Stair training;Endurance training;Neuromuscular re-education;Home exercise program;Safety education & training;Therapeutic activities;ROM;Patient/Caregiver education & training;Positioning PT Plan of Care: Daily Restrictions Restrictions/Precautions Restrictions/Precautions: Up as Tolerated, Contact Precautions Required Braces or Orthoses?: No Position Activity Restriction Other position/activity restrictions: Up with assist, recent R LE DVT Subjective Subjective Pain: no c/o Orientation Overall Orientation Status: Within Functional Limits Orientation Level: Oriented to person;Oriented to place;Oriented to situation;Oriented to time Cognition Overall Cognitive Status: Exceptions Arousal/Alertness: Appropriate responses to stimuli Following Commands: Follows multistep commands with increased time Attention Span: Difficulty attending to directions;Difficulty dividing attention Insights: Decreased awareness of deficits Initiation: Requires cues for some Sequencing: Requires cues for some Cognition Comment: Pt very talkative. Pt requires verbal cues for safety during transfers. Objective Vitals O2 Device: None (Room air) Bed Mobility Training Bed Mobility Training: No (pt up in chair upon PT arrival and retired to chair at the end of PT session) Transfer Training Transfer Training: Yes Overall Level of Assistance: Supervision Interventions: Safety awareness training Sit to Stand: Supervision Stand to Sit: Supervision Stand Pivot Transfers: Supervision Toilet Transfer: Supervision Gait Overall Level of Assistance: Supervision PT Exercises A/AROM Exercises: AROM BLEs seated: LAQs, KTC, ankle pumps/circles x 15 reps Resistive Exercises: [place] green t-band x 10 reps: biceps, triceps, horizontal abduction Safety Devices Type of Devices: Call light within reach;Patient at risk for falls;Left in chair;Nurse notified Restraints Restraints Initially in Place: No AM-PAC Score AM-PAC Inpatient Mobility Raw Score : 17 (08/29/22913) AM-PAC Inpatient T-Scale Score : 42.13 (08/29/22913) Mobility Inpatient CMS 0-100% Score: 50.57 (08/29/22913) Mobility Inpatient CMS G-Code Modifier : CK (08/29/22913) Goals Short Term Goals Time Frame for Short Term Goals: 1/10 Short Term Goal 1: Pt to ambulate 200 ft with least AD SBA demonstrating good toleance. Short Term Goal 2: Pt to ascend/ descend 3 steps with gait belt and right railing Short Term Goal 3: Pt to be independent with HEP for LE strengthening Short Term Goal 4: Pt to tolerate 30 min ther ex and activity to improve endurance Patient Goals Patient Goals : to be able to take care of self or get the assistance needed Education Patient Education Education Given To: Patient Education Provided: Role of Therapy;Plan of Care;Fall Prevention Strategies;Home Exercise Program;Precautions Education Method: Demonstration;Verbal;Teach Back Education Outcome: Verbalized understanding;Continued education needed Therapy Time Individual Concurrent Group Co-treatment Time In 1115 Time Out 1147 Minutes 32 Timed Code Treatment Minutes: 24 Minutes Donny Ray PT * DESTINY Mata - 08/30/2022 11:50 AM EDT Speech Language Pathology [facility] Speech Language Treatment Note Date: 08/30/2022 Patient s Name: Bharat Manzanares Patient Active Problem List Diagnosis Code Stress incontinence in female N39.3 OAB (overactive bladder) N32.81 Type 2 diabetes mellitus without complication ([facility]) E11.9 Acquired hypothyroidism E03.9 Simple chronic bronchitis ([facility]) J41.0 Migraine G43.909 Acoustic neuroma ([facility]) D33.3 H/O gastroesophageal reflux (GERD) Z87.19 Medication refill Z76.0 Asthma J45.909 Astigmatism H52.209 Attention deficit disorder with hyperactivity F90.9 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 Chronic obstructive lung disease ([facility]) J44.9 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 Dysphagia R13.10 Essential hypertension I10 Gastroesophageal reflux disease K21.9 Gingival and periodontal disease K05.6, K06.9 Hearing loss H91.90 Hyperlipidemia E78.5 Infantile cerebral palsy ([facility]) G80.9 Intractable migraine without aura G43.019 Low compliance bladder N31.8 Mental retardation F79 Mixed stress and urge urinary incontinence N39.46 Morbid obesity ([facility]) E66.01 Myopia H52.10 Nuclear sclerotic cataract H25.10 Obesity E66.9 Parasomnia G47.50 Polyneuropathy in diabetes ([facility]) E11.42 Pure hyperglyceridemia E78.1 Tobacco use disorder F17.200 Need for prophylactic vaccination and inoculation against varicella Z23 Family history of colon cancer Z80.0 Infected dental caries K02.9, K04.7 Megaloblastic anemia due to vitamin B12 deficiency D53.1 Acute bacterial sinusitis J01.90, B96.89 Encounter for smoking cessation counseling Z71.6 Cellulitis of right lower extremity L03.115 Deep vein thrombosis (DVT) of lower extremity ([facility]) I82.409 Leg swelling M79.89 Infestation by bed bug B88.8 Chronic pruritus L29.9 Failure to thrive in adult R62.7 Dizziness R42 Unable to care for self Z78.9 Pain: pt does not complain of pain Speech and Language Treatment Treatment time: 1336-0091 Subjective: [x] Alert [x] Cooperative [] Confused [] Agitated [] Lethargic Objective/Assessment: Auditory Comprehension: Because reports difficulty understanding complex medical information presented within the hospital setting related to her care ST collaborated with pt to identify from a list of strategies those that she would prefer communication partners would use and strategies that she can use to support comprehension. From the discussed list of strategies pt selected 18/25 strategies for others to use and 3/[address] encourage pt to increase discernment of preferred strategies, to support communication partners in being able to recall and implement them. Despite maxA pt determined to include all 18 strategies for others to use. ST encouraged pt to revisit the list in the future to identify which strategies have been most useful and narrow the target list for communication partner to learn and use. Education left at bedside. During conversation provided mod cues pt utilized strategies x3 and identified opportunities for a communication partner strategy x5. Other: Pt noted to recall x5 details from medical record of recent events. Plan: [x] Continue ST services [] Discharge from ST: Discharge recommendations: [] Further therapy recommended at discharge.The patient should be able to tolerate at least 3 hours of therapy per day over 5 days or 15 hours over 7 days. [] Further therapy recommended at discharge. [x] No therapy recommended at discharge. Elisha Poon M.S., CCC-AMMUNITION AND EXPLOSIVES HANDLER Treatment completed by: DESTINY Mata * Corina Cantu, DO - 08/30/2022 7:16 AM EDT OBS/CDU RESIDENT NOTE Patients PCP is: Brice Mcfarland APRN SUBJECTIVE No acute events overnight. Vitals stable, afebrile. Patient evaluated by assisted yesterday, awaiting decision. She has no complaints this AM. Has been able to tolerate a full diet without nausea or vomiting. The patient is urinating on his own and is passing flatus. Denies fever, chills, nausea,vomiting, chest pain, shortness of breath, abdominal pain. Discussion with patient and family yesterday that placement may take some time and she does have anapartment to go to and may need to go home for a short period while they continue to work on placement. Patient agreeable to plan this AM PHYSICAL EXAM General: NAD, sitting up in chair Heent: normocephalic atraumatic Cardiovascular: RRR, S1S2 Pulmonary: CTAB, NO SOB Abdomen: SOFT, NTTP, ND, +BS Extremities: +2/4 PULSES DISTAL, NO SWELLING, cellulitis continues to improve Neuro / Psych: NO NUMBNESS OR TINGLING, MENTATION AT BASELINE PERTINENT TEST /EXAMS I have reviewed all available laboratory results. MEDICATIONS CURRENT metFORMIN (GLUCOPHAGE) tablet 1,000 mg, BID WC nicotine (NICODERM CQ) 14 MG/24HR 1 patch, Daily hydrOXYzine HCl (ATARAX) tablet 10 mg, TID PRN nicotine (NICODERM CQ) 21 MG/24HR 1 patch, Daily PRN ipratropium-albuterol (DUONEB) nebulizer solution 3 mL, Q6H PRN midodrine (PROAMATINE) tablet 5 mg, Daily furosemide (LASIX) tablet 20 mg, BID budesonide-formoterol (SYMBICORT) 80-4.5 MCG/ACT inhaler 2 puff, BID amoxicillin-clavulanate (AUGMENTIN) 500-125 MG per tablet 1 tablet, 3 times per day apixaban (ELIQUIS) tablet 5 mg, BID atorvastatin (LIPITOR) tablet 20 mg, Daily buPROPion (WELLBUTRIN XL) extended release tablet 150 mg, QAM divalproex (DEPAKOTE SPRINKLE) DR capsule 250 mg, BID levothyroxine (SYNTHROID) tablet 200 mcg, Daily pantoprazole (PROTONIX) tablet 40 mg, Daily sodium chloride flush 0.9 % injection 5-40 mL, 2 times per day sodium chloride flush 0.9 % injection 5-40 mL, PRN 0.9 % sodium chloride infusion, PRN ondansetron (ZOFRAN-ODT) disintegrating tablet 4 mg, Q8H PRN Or ondansetron (ZOFRAN) injection 4 mg, Q6H PRN polyethylene glycol (GLYCOLAX) packet 17 g, Daily PRN acetaminophen (TYLENOL) tablet 650 mg, Q6H PRN Or acetaminophen (TYLENOL) suppository 650 mg, Q6H PRN All medication charted and reviewed. CONSULTS IP CONSULT TO CASE MANAGEMENT IP CONSULT TO SPIRITUAL SERVICES IP CONSULT TO SPIRITUAL SERVICES IP CONSULT TO SPIRITUAL SERVICES ASSESSMENT/PLAN Bharat Manzanares is a 57 y.o. female who presents with Inability to care for self. Patient for social work and case management intervention. See notes from both. halfway did onsite visit with patient yesterday Discussion with patients sister and family yesterday regarding placement PT/OT Cellulitis. Ongoing Augmentin use twice daily. Patient responding to treatment. We will continue. Hx of DVT, on anticoagulation Diabetes: Poorly controlled sugars in general. Patient on metformin. Patient on glimepiride at home. As needed sliding scale Continue home medications and pain control Monitor vitals, labs, and imaging DISPO: pending consults and clinical improvement -- Corina Cantu DO Emergency Medicine Resident Physician This dictation was generated by voice recognition computer software. Although all attempts are madeto edit the dictation for accuracy, there may be errors in the central office equipment engineer that are not intended. * VANESA Coyne - 08/29/2022 2:00 PM EDT Occupational Therapy Facility/Department: [address] OBSERVATION Occupational Therapy Daily Progress Note Name: Bharat Manzanares : 1965 Date of Service: 08/29/2022 Discharge Recommendations:Pt. Would benefit from further OT services to enhance safety. Patient would benefit from continued therapy after discharge Patient Diagnosis(es): The encounter diagnosis was Failure to thrive in adult. Past Medical History: has a past medical history of Acoustic neuroma ([facility]), Allergic rhinitis, Asthma, Astigmatism, Attention deficit disorder with hyperactivity, Cerebral palsy ([facility]), CHF (congestive heart failure) ([facility]), COPD (chronic obstructive pulmonary disease) ([facility]), Dental caries, Developmental academic disorder, Diarrhea, Dysphagia, GERD (gastroesophageal reflux disease), Gingival and periodontal disease, Hearing loss, Hordeolum externum of left lower eyelid, Hyperglycemia, Hyperlipidemia, Hypertension, Hypoglycemia, Hypothyroidism, Infantile cerebral palsy ([facility]), Intractable migraine without aura, Irregular heartbeat, Irregular heartbeat, Learning disability, Low compliance bladder, Mental retardation, Migraine, Mixed stress and urge urinary incontinence, Morbid obesity ([facility]), Myopia, Neuropathy, Nicotine dependence, cigarettes, with other nicotine-induced disorders, Nuclear sclerotic cataract, OAB (overactive bladder), Osteoarthritis, Overactive bladder, Parasomnia, Polyneuropathy in diabetes ([facility]), Poor dentition, Simple chronic bronchitis ([facility]), Stress incontinence in female, Thyroid disease, Tobacco abuse, Type 2 diabetes mellitus ([facility]), Urinary incontinence, and Wears glasses. Past Surgical History: has a past surgical history that includes Upper gastrointestinal endoscopy (12/01/2019); Endoscopy, colon, diagnostic; Dental surgery (03/11/2020); and Dental surgery (N/A, 03/11/2020). Assessment Performance deficits / Impairments: Decreased functional mobility ;Decreased ADL status;Decreased endurance;Decreased high-level IADLs;Decreased fine motor control;Decreased coordination;Decreased strength;Decreased cognition Prognosis: Good Decision Making: Medium Complexity REQUIRES OT FOLLOW-UP: Yes Activity Tolerance Activity Tolerance: Patient Tolerated treatment well Plan Occupational Therapy Plan Times Per Week: 2-3x/wk Restrictions Restrictions/Precautions Restrictions/Precautions: Up as Tolerated, Contact Precautions Required Braces or Orthoses?: No Position Activity Restriction Other position/activity restrictions: Up with assist, recent R LE DVT Subjective General Patient assessed for rehabilitation services?: Yes Family / Caregiver Present: No General Comment Comments: RN ok'd for therapy this morning. pt agreeable to participate in session and cooperative throughout. No c/o pain. Objective Safety Devices Type of Devices: Call light within reach;Left in chair;Gait belt;Nurse notified Restraints Restraints Initially in Place: No Bed Mobility Training Bed Mobility Training: Yes Overall Level of Assistance: Supervision (Cues for encouragement.) Supine to Sit: Supervision Scooting: Supervision Balance Sitting: Intact (No LOB, sitting EOB/bed side chair, toilet, static/dynamic activity) Standing: Intact (SBA-S to ensure safety, no AE, static/dynamic/mobility.) Transfer Training Transfer Training: Yes Overall Level of Assistance: Stand-by assistance Interventions: Safety awareness training (P safety when sitting, max cues to reach back for chair and push up from chair.) Sit to Stand: Stand-by assistance Stand to Sit: Stand-by assistance Toilet Transfer: Stand-by assistance (B grab bars) Gait Overall Level of Assistance: Stand-by assistance;Additional time;Contact-guard assistance (CGA-SBA,no AE, slow moving, to and from bathroom, room distances.) ADL Grooming: Stand by assistance;Independent Grooming Skilled Clinical Factors: SBA standing at sink to ensure stability, I to complete action of washing B hands/washing face. LE Dressing: Supervision LE Dressing Skilled Clinical Factors: Sitting in bed side chair, doff/don B socks, S to ensure safety. Toileting: Minimal assistance Toileting Skilled Clinical Factors: Toilet transfer- SBA-S + B grab bars, Min A for tab style brief, Frontal hyg- S, sitting on toilet. Additional Comments: Pt. needing encouragement to complete and initiate most tasks. Activity Tolerance Activity Tolerance: Patient tolerated treatment well;Patient limited by fatigue Vision Vision: Impaired Vision Exceptions: Wears glasses at all times Cognition Overall Cognitive Status: Exceptions Arousal/Alertness: Appropriate responses to stimuli Following Commands: Follows multistep commands with increased time Attention Span: Difficulty attending to directions;Difficulty dividing attention Initiation: Requires cues for some Sequencing: Requires cues for some Cognition Comment: Pt very talkative. Pt requires verbal cues for safety during transfers. Orientation Overall Orientation Status: Within Functional Limits Orientation Level: Oriented to person;Oriented to place;Oriented to situation;Oriented to time Education Given To: Patient Education Provided: Role of Therapy;Plan of Care;Transfer Training Education Provided Comments: Importance of OOB activity. Education Method: Verbal Barriers to Learning: None Education Outcome: Verbalized understanding AM-PAC Score AM-PAC Inpatient Daily Activity Raw Score: 21 (08/29/22 134) AM-PAC Inpatient ADL T-Scale Score : 44.27 (08/29/22 134) ADL Inpatient CMS 0-100% Score: 32.79 (08/29/22 134) ADL Inpatient CMS G-Code Modifier : CJ (08/29/221341) Goals Short Term Goals Time Frame for Short Term Goals: pt will, by discharge Short Term Goal 1: complete LB ADLs and toileting tasks with SBA and set up Short Term Goal 2: complete UB ADLs with mod I Short Term Goal 3: dem supervision during functional transfers/functional mobility with LRD, as needed Short Term Goal 4: dem ~8 minutes dynamic standing tolerance with supervision in order to complete functional tasks Short Term Goal 5: maintain attention to task for ~5 minutes with 1-2 verbal cues for redirection Therapy Time Individual Concurrent Group Co-treatment Time In 1218 Time Out 1242 Minutes 24 Timed Code Treatment Minutes: 24 Minutes DALE Coyne * Frederic Dc MD - 08/29/2022 1:36 PM EDT OBS/CDU Attending NOTE Patients PCP is: Brice Mcfarland APRN SUBJECTIVE No new medical complaint. Patient with history of incontinence which has made it difficult for placement. See case management notes. Discussed the case at some length with patient's sister. Patient has a history of special needs secondary to anoxic brain injury as a child. Patient has ongoing requirement for supervision. Patient ideal for assisted as she is generally functional but does need occasional redirection. PHYSICAL EXAM General: NAD, AO X 3 Heent: EMOI, PERRL Neck: SUPPLE, NO JVD Cardiovascular: RRR, S1S2 Pulmonary: CTAB, NO SOB Abdomen: SOFT, NTTP, ND, +BS Extremities: +2/4 PULSES DISTAL, NO SWELLING Neuro / Psych: NO NUMBNESS OR TINGLING, MENTATION AT BASELINE PERTINENT TEST /EXAMS I have reviewed all available laboratory results. MEDICATIONS CURRENT metFORMIN (GLUCOPHAGE) tablet 1,000 mg, BID WC nicotine (NICODERM CQ) 14 MG/24HR 1 patch, Daily hydrOXYzine HCl (ATARAX) tablet 10 mg, TID PRN nicotine (NICODERM CQ) 21 MG/24HR 1 patch, Daily PRN ipratropium-albuterol (DUONEB) nebulizer solution 3 mL, Q6H PRN midodrine (PROAMATINE) tablet 5 mg, Daily furosemide (LASIX) tablet 20 mg, BID budesonide-formoterol (SYMBICORT) 80-4.5 MCG/ACT inhaler 2 puff, BID amoxicillin-clavulanate (AUGMENTIN) 500-125 MG per tablet 1 tablet, 3 times per day apixaban (ELIQUIS) tablet 5 mg, BID atorvastatin (LIPITOR) tablet 20 mg, Daily buPROPion (WELLBUTRIN XL) extended release tablet 150 mg, QAM divalproex (DEPAKOTE SPRINKLE) DR capsule 250 mg, BID levothyroxine (SYNTHROID) tablet 200 mcg, Daily pantoprazole (PROTONIX) tablet 40 mg, Daily sodium chloride flush 0.9 % injection 5-40 mL, 2 times per day sodium chloride flush 0.9 % injection 5-40 mL, PRN 0.9 % sodium chloride infusion, PRN ondansetron (ZOFRAN-ODT) disintegrating tablet 4 mg, Q8H PRN Or ondansetron (ZOFRAN) injection 4 mg, Q6H PRN polyethylene glycol (GLYCOLAX) packet 17 g, Daily PRN acetaminophen (TYLENOL) tablet 650 mg, Q6H PRN Or acetaminophen (TYLENOL) suppository 650 mg, Q6H PRN All medication charted and reviewed. CONSULTS IP CONSULT TO CASE MANAGEMENT IP CONSULT TO SPIRITUAL SERVICES IP CONSULT TO SPIRITUAL SERVICES IP CONSULT TO SPIRITUAL SERVICES ASSESSMENT/PLAN Bharat Manzanares is a 57 y.o. female who presents with Inability to care for self. Patient for social work and case management intervention. See notes from both. halfway to do onsite visit with patient today Cellulitis. Ongoing Augmentin use twice daily. Patient responding to treatment. We will continue. Anticoagulation for DVT. Poorly controlled sugars in general. Patient on metformin. Patient on glimepiride at home. Initially held. Optimize metformin. As needed sliding scale Continue home medications and pain control Monitor vitals, labs, and imaging DISPO: pending consults and clinical improvement -- Frederic Dc MD Emergency Medicine Attending Physician This dictation was generated by voice recognition computer software. Although all attempts are madeto edit the dictation for accuracy, there may be errors in the central office equipment engineer that are not intended. * BRIDGETTE MADRID - 08/29/2022 9:12 AM EDT Physical Therapy Facility/Department: [address] [facility]BSERVATION Daily Treatment Note Name: Bharat Manzanares : 1965 Date of Service: 08/29/2022 Discharge Recommendations: Patient would benefit from continued therapy after discharge PT Equipment Recommendations Equipment Needed: No (pt has a rollator, but states she needs a new one because of bed bugs are onit.) Patient Diagnosis(es): The encounter diagnosis was Failure to thrive in adult. Past Medical History: has a past medical history of Acoustic neuroma ([facility]), Allergic rhinitis, Asthma, Astigmatism, Attention deficit disorder with hyperactivity, Cerebral palsy ([facility]), CHF (congestive heart failure) ([facility]), COPD (chronic obstructive pulmonary disease) ([facility]), Dental caries, Developmental academic disorder, Diarrhea, Dysphagia, GERD (gastroesophageal reflux disease), Gingival and periodontal disease, Hearing loss, Hordeolum externum of left lower eyelid, Hyperglycemia, Hyperlipidemia, Hypertension, Hypoglycemia, Hypothyroidism, Infantile cerebral palsy ([facility]), Intractable migraine without aura, Irregular heartbeat, Irregular heartbeat, Learning disability, Low compliance bladder, Mental retardation, Migraine, Mixed stress and urge urinary incontinence, Morbid obesity ([facility]), Myopia, Neuropathy, Nicotine dependence, cigarettes, with other nicotine-induced disorders, Nuclear sclerotic cataract, OAB (overactive bladder), Osteoarthritis, Overactive bladder, Parasomnia, Polyneuropathy in diabetes ([facility]), Poor dentition, Simple chronic bronchitis ([facility]), Stress incontinence in female, Thyroid disease, Tobacco abuse, Type 2 diabetes mellitus ([facility]), Urinary incontinence, and Wears glasses. Past Surgical History: has a past surgical history that includes Upper gastrointestinal endoscopy (12/01/2019); Endoscopy, colon, diagnostic; Dental surgery (03/11/2020); and Dental surgery (N/A, 03/11/2020). Assessment Body Structures, Functions, Activity Limitations Requiring Skilled Therapeutic Intervention: Decreased body mechanics;Decreased functional mobility ;Decreased sensation;Decreased tolerance to work activity;Decreased balance;Increased pain Assessment: Pt ambulated 100 ft without AD CGA. Pt demonstrates general deconditioning, high level balalnce deficits with fall risk impacting gait, balance and functioanl independence. PT will benefit from PT to progress activity and promote improved independence and safety with mobility. Therapy Prognosis: Good Activity Tolerance Activity Tolerance: Patient tolerated treatment well;Patient limited by fatigue Plan Physcial Therapy Plan General Plan: (5x/wk) Current Treatment Recommendations: Strengthening, Balance training, Transfer training, Functional mobility training, Gait training, Stair training, Endurance training, Neuromuscular re-education, Home exercise program, Safety education & training, Therapeutic activities Safety Devices Type of Devices: Call light within reach, Left in chair, Gait belt, Nurse notified Restraints Restraints Initially in Place: No Restrictions Restrictions/Precautions Restrictions/Precautions: Up as Tolerated, Contact Precautions Required Braces or Orthoses?: No Position Activity Restriction Other position/activity restrictions: Up with assist, recent R LE DVT Subjective General Chart Reviewed: Yes Response To Previous Treatment: Patient with no complaints from previous session. Family / Caregiver Present: No General Comment Comments: Pt retired to recliner with call light. Subjective Subjective: RN and pt agreeable to PT. Pt in recliner upon arrival. Pt having 7- 8/10 pain in R LE; pt stated she was medicated prior to arrival. Pt pleasant and coopertive. I can't take care of myself. I don't want to go back to my place. Vision/Hearing Vision Vision: Impaired Vision Exceptions: Wears glasses at all times Cognition Orientation Orientation Level: Oriented to person;Oriented to place;Oriented to situation;Oriented to time Cognition Overall Cognitive Status: Exceptions Arousal/Alertness: Appropriate responses to stimuli Following Commands: Follows multistep commands with increased time Attention Span: Difficulty attending to directions;Difficulty dividing attention Initiation: Requires cues for some Sequencing: Requires cues for some Cognition Comment: Pt very talkative. Pt requires verbal cues for safety during transfers. Objective Bed mobility Bed Mobility Comments: Unable to assess. Pt in recliner upon entering and exiting Transfers Sit to Stand: Stand by assistance Stand to Sit: Stand by assistance Comment: assessed with and without RW. Verbal cues given for UE placement especially when sitting down in recliner. Ambulation Device: No Device Assistance: Contact guard assistance Quality of Gait: unsteady without LOB Gait Deviations: Decreased head and trunk rotation;Decreased step height;Increased EDGARDO Distance: 100 ft Comments: Pt unsteady especially when turning head during ambulation Balance Posture: Good Sitting - Static: Good Sitting - Dynamic: Good Standing - Static: Good;- Standing - Dynamic: Fair Comments: assessed without AD. Exercise Treatment: Seated LE exercise program: Long Arc Quads, hip abduction/adduction, heel/toe raises, and marches. Reps: 10. Standing exercise program: hip flexion, hip abduction and hamstring curls. Reps: 10; pt unable to complete standing exercises as pt stated, I'm done with my exercises. Truong tired. OutComes Score [facility] Score AM-[facility] Inpatient Mobility Raw Score : 17 (08/29/22913) AM-[facility] Inpatient T-Scale Score : 42.13 (08/29/22913) Mobility Inpatient CMS 0-100% Score: 50.57 (08/29/22913) Mobility Inpatient CMS G-Code Modifier : CK (08/29/22913) Goals Short Term Goals Time Frame for Short Term Goals: 06/19 Short Term Goal 1: Pt to ambulate 200 ft with least AD SBA demonstrating good toleance. Short Term Goal 2: Pt to ascend/ descend 3 steps with gait belt and right railing Short Term Goal 3: Pt to be independent with HEP for LE strengthening Short Term Goal 4: Pt to tolerate 30 min ther ex and activity to improve endurance Patient Goals Patient Goals : to be able to take care of self or get the assistance needed Education Patient Education Education Given To: Patient Education Provided: Role of Therapy;Plan of Care;Fall Prevention Strategies;Home Exercise Program;Precautions Education Provided Comments: Pt doesn't want a written HEP as it is difficult for her to understand; pt was able to demonstrate understanding of seated HEP Education Method: Demonstration;Verbal;Teach Back Barriers to Learning: None Education Outcome: Verbalized understanding;Continued education needed Therapy Time Individual Concurrent Group Co-treatment Time In 842 Time Out 0912 Minutes 29 Timed Code Treatment Minutes: 23 Minutes BRIDGETTE MADRID PTA * Jacinto Bell - 08/29/2022 1:00 AM EDT SPIRITUAL CARE DEPARTMENT - [facility] [place] PROGRESS NOTE Shift date: 08/28/22 Shift day: Saturday Shift # 2 Room # [id number] Name: Bharat Manzanares Mormonism: Place of hoahaoism: Referral: Patient Admit Date & Time: 08/24/2022 12:11 PM Assessment: Bharat Manzanares is a 57 y.o. female Intervention: Planer Chain Offbearer introduced self and title as auto porter. Patient appeared receptive to auto porter presence and engaged in conversation. Planer Chain Offbearer offered space for patient to express feelings, needs, and concerns and provided a ministry presence. Patient discussed wanting to move to a care facility and appears anxious of moving back to her old apartment. Patient requested prayer over situation. Valance Cutter provideda supportive presence through active listening, words of affirmation, and prayer. Outcome: Patient expressed gratitude for visit. Plan: Chaplains will remain available to offer spiritual and emotional support as needed. . Spiritual Care Department [facility] [phone] * Frederic Dc MD - 08/28/2022 5:40 PM EDT [facility] CDU / OBSERVATION ENCOUNTER ATTENDING NOTE I performed a history and physical examination of the patient and discussed management with the resident or midlevel provider. I reviewed the resident or midlevel provider's note and agree with the documented findings and plan of care. Any areas of disagreement are noted on the chart. I was personally present for the ramsey portions of any procedures. I have documented in the chart those procedures where I was not present during the ramsey portions. I have reviewed the nurses notes. I agree with the chief complaint, past medical history, past surgical history, allergies, medications, social and family history as documented unless otherwise noted below. The Family history, social history, and ROS are effectively unchanged since admission unless noted elsewhere in the chart. This patient was placed in the observation unit for reevaluation for possible admission to the hospital Patient requires guardian. Patient requires more aggressive supervised situation at home. Patient does not require correction but does require additional social support. Discussed with patient. Discussed with case management. Working through mechanism by which patient to be safely discharged Frederic Dc MD Attending Emergency Physician * Vasiliy Wise - 08/28/2022 12:42 PM EDT Speech Language Pathology Speech Language Pathology [facility] Cognitive Treatment Note Date: 08/28/2022 Patient s Name: Bharat Manzanares Diagnosis: Patient Active Problem List Diagnosis Code Stress incontinence in female N39.3 OAB (overactive bladder) N32.81 Type 2 diabetes mellitus without complication ([facility]) E11.9 Acquired hypothyroidism E03.9 Simple chronic bronchitis ([facility]) J41.0 Migraine G43.909 Acoustic neuroma ([facility]) D33.3 H/O gastroesophageal reflux (GERD) Z87.19 Medication refill Z76.0 Asthma J45.909 Astigmatism H52.209 Attention deficit disorder with hyperactivity F90.9 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 Chronic obstructive lung disease ([facility]) J44.9 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 Dysphagia R13.10 Essential hypertension I10 Gastroesophageal reflux disease K21.9 Gingival and periodontal disease K05.6, K06.9 Hearing loss H91.90 Hyperlipidemia E78.5 Infantile cerebral palsy ([facility]) G80.9 Intractable migraine without aura G43.019 Low compliance bladder N31.8 Mental retardation F79 Mixed stress and urge urinary incontinence N39.46 Morbid obesity ([facility]) E66.01 Myopia H52.10 Nuclear sclerotic cataract H25.10 Obesity E66.9 Parasomnia G47.50 Polyneuropathy in diabetes ([facility]) E11.42 Pure hyperglyceridemia E78.1 Tobacco use disorder F17.200 Need for prophylactic vaccination and inoculation against varicella Z23 Family history of colon cancer Z80.0 Infected dental caries K02.9, K04.7 Megaloblastic anemia due to vitamin B12 deficiency D53.1 Acute bacterial sinusitis J01.90, B96.89 Encounter for smoking cessation counseling Z71.6 Cellulitis of right lower extremity L03.115 Deep vein thrombosis (DVT) of lower extremity (HCC) I82.409 Leg swelling M79.89 Infestation by bed bug B88.8 Chronic pruritus L29.9 Failure to thrive in adult R62.7 Dizziness R42 Unable to care for self Z78.9 Pain: Pt did not c/o pain Cognitive Treatment Treatment time: 10:23 - 10:47 Subjective: [x] Alert [x] Cooperative [] Confused [] Agitated [] Lethargic Objective/Assessment: Recall: Delayed Recall: 0/3 increased to 3/3 with max verbal cues and a choice of 2 Functional Memory: Ruddy: 0/5 did not increase with 1 repetition Problem Solving/Reasoning: Stating Logical Conclusions: 1/8 increased to 8/8 with min to max verbalcues Problem Solving: Answering Questions: 3/5 increased to 5/5 with min to mod verbal cues Other: Pt reports that she has a hard time conveying her thoughts to medical assistant dermatology. Pt wants to be, deemed unfit to care for herself. Pt also requests assistance in the shower because she feels as though she is a fall risk. Pt reported that she has trouble swallowing pills and food: per nurse report, Pt successfully took medication PO this morning. Plan: [x] Continue ST services [] Discharge from ST: Discharge recommendations: [] Further therapy recommended at discharge.The patient should be able to tolerate at least 3 hours of therapy per day over 5 days or 15 hours over 7 days. [x] Further therapy recommended at discharge. [] No therapy recommended at discharge. Treatment completed by: Completed by: VASILIY WISE Office Coordinator Receptionist Clinician Cosigned By: Radha Hartley M.A., CCC/AMMUNITION AND EXPLOSIVES HANDLER * Abdias Fisher MD - 08/28/2022 10:03 AM EDT Physician Progress Note PATIENT: BHARAT MANZANARES CSN #: [id number] : 1965 ADMIT DATE: 08/24/2022 12:11 PM DISCH DATE: RESPONDING PROVIDER #: ABDIAS FISHER QUERY TEXT: Pt admitted with R big toe cellulitis. Pt noted to have DM 2 with hyperglycemia. If possible, please document in progress notes and discharge summary the relationship, if any, between cellulitis and DM. The medical record reflects the following: Risk Factors: DM 2, cerebral palsy Clinical Indicators: Glucose levels 08/24 117, 08/26 292, 3.20 338>301, Takes Glimepiride 2mg QD at home Treatment: Augmentin Glucose monitoring, metformin 500 twice daily, Increase metformin 1000 twice daily; initiate diabetic diet Thank you please reach out for any questions! Shara Meneses RN CCDS, CDI Camouflage Assembler [phone] Options provided: -- R big toe cellulitis associated with Diabetes -- R big toe cellulitis unrelated to Diabetes -- Bilat LE cellulitis associated with Diabetes -- Bilat LEcellulitis unrelated to Diabetes -- Other - I will add my own diagnosis -- Disagree - Not applicable / Not valid -- Disagree - Clinically unable to determine / Unknown -- Refer to Clinical Documentation Reviewer PROVIDER RESPONSE TEXT: Provider is clinically unable to determine a response to this query. Query created by: Shara Meneses on 08/27/2022 1:22 PM QUERY TEXT: Pt admitted with Cellulitis, inability to care for self and has DVT documented. If possible, please document in progress notes and discharge summary further specificity regarding the DVT acuity: The medical record reflects the following: Risk Factors: Cerebral palsy, DM, COPD Clinical Indicators: admit 08/20-08/23 d/t DVT>right saphenous vein extending to the common femoral vein. Treatment: po Eliquis, lab monitoring Thank you please reach out for any questions! Shara Meneses RN CCDS, CDI Camouflage Assembler [phone] Options provided: -- Acute right saphenous vein extending to the common femoral vein. DVT -- Sub-Acute right saphenous vein extending to the common femoral vein. DVT -- Chronic right saphenous vein extending to the common femoral vein DVT present on admission -- Other - I will add my own diagnosis -- Disagree - Not applicable / Not valid -- Disagree - Clinically unable to determine / Unknown -- Refer to Clinical Documentation Reviewer PROVIDER RESPONSE TEXT: Sub-Acute right saphenous vein extending to the common femoral vein. DVT. Query created by: Shara Meneses on 08/27/2022 1:27 PM QUERY TEXT: Pt admitted with inability to care for self at home, prior refused inpatient rehab. If possible, please document in the progress notes and discharge summary if you are evaluating and / or treating any of the following: The medical record reflects the following: Risk Factors: Cerebral Palsy, DM, COPD, acoustic neuroma Clinical Indicators: Occupational Therapy note 08/25 Decreased functional mobility ;Decreased ADL status; Decreased endurance; Decreased high-level IADLs Decreased fine motor control ;Decreased coordination; Decreased strength; Decreased cognition 08/25 Physical therapy note: report progressive decline self care and home making, limited transportation due to incontinence and bed bugs . Pt demonstrates general deconditioning, high level balance deficits with fall risk impacting gait, balance and functional independence Treatment: Placement to inpatient Rehab, PT/OT/Speech therapy, IVF, lab monitoring Thank you please reach out for any questions! Shara Meneses RN CCDS, CDI Camouflage Assembler [phone] Options provided: -- inability to care for self due to failure to thrive -- inability to care for self due to Physical Debility -- inability to care for self due to Frailty -- inability to care for self due to other, please provide cause, Please document other cause. -- Other - I will add my own diagnosis -- Disagree - Not applicable / Not valid -- Disagree - Clinically unable to determine / Unknown -- Refer to Clinical Documentation Reviewer PROVIDER RESPONSE TEXT: inability to care for self due to Learning disability Query created by: Shara Meneses on 08/27/2022 1:36 PM Electronically signed by: ABDIAS FISHER 08/28/2022 10:02 AM * Abdias Fisher MD - 08/28/2022 9:09 AM EDT OBS/CDU RESIDENT NOTE Patients PCP is: Brice Mcfarland APRN SUBJECTIVE Patient seen at bedside today. No acute events overnight. No complaints. PHYSICAL EXAM General: NAD, AO X 3 Heent: EMOI, PERRL Neck: SUPPLE, NO JVD Cardiovascular: RRR, S1S2 Pulmonary: CTAB, NO SOB Abdomen: SOFT, NTTP, ND, +BS Extremities: +2/4 PULSES DISTAL, NO SWELLING; improving erythema of right 2nd toe Neuro / Psych: NO NUMBNESS OR TINGLING, MENTATION AT BASELINE PERTINENT TEST /EXAMS I have reviewed all available laboratory results. MEDICATIONS CURRENT metFORMIN (GLUCOPHAGE) tablet 1,000 mg, BID WC nicotine (NICODERM CQ) 14 MG/24HR 1 patch, Daily hydrOXYzine HCl (ATARAX) tablet 10 mg, TID PRN nicotine (NICODERM CQ) 21 MG/24HR 1 patch, Daily PRN ipratropium-albuterol (DUONEB) nebulizer solution 3 mL, Q6H PRN midodrine (PROAMATINE) tablet 5 mg, Daily furosemide (LASIX) tablet 20 mg, BID budesonide-formoterol (SYMBICORT) 80-4.5 MCG/ACT inhaler 2 puff, BID amoxicillin-clavulanate (AUGMENTIN) 500-125 MG per tablet 1 tablet, 3 times per day apixaban (ELIQUIS) tablet 5 mg, BID atorvastatin (LIPITOR) tablet 20 mg, Daily buPROPion (WELLBUTRIN XL) extended release tablet 150 mg, QAM divalproex (DEPAKOTE SPRINKLE) DR capsule 250 mg, BID levothyroxine (SYNTHROID) tablet 200 mcg, Daily pantoprazole (PROTONIX) tablet 40 mg, Daily sodium chloride flush 0.9 % injection 5-40 mL, 2 times per day sodium chloride flush 0.9 % injection 5-40 mL, PRN 0.9 % sodium chloride infusion, PRN ondansetron (ZOFRAN-ODT) disintegrating tablet 4 mg, Q8H PRN Or ondansetron (ZOFRAN) injection 4 mg, Q6H PRN polyethylene glycol (GLYCOLAX) packet 17 g, Daily PRN acetaminophen (TYLENOL) tablet 650 mg, Q6H PRN Or acetaminophen (TYLENOL) suppository 650 mg, Q6H PRN All medication charted and reviewed. CONSULTS IP CONSULT TO CASE MANAGEMENT IP CONSULT TO SPIRITUAL SERVICES IP CONSULT TO SPIRITUAL SERVICES IP CONSULT TO SPIRITUAL SERVICES ASSESSMENT/PLAN Bharat Manzanares is a 57 y.o. female who presents with Inability to care for self - Consult social work for placement - pending placement DVT - Was previously on this for a catheter related DVT - Eliquis 5 twice daily Cellulitis - Continue Augmentin twice daily Hyperglycemia/diabetes - Metformin 1000 BID - Diabetic diet - Takes Glimepiride 2mg QD at home; This was held initially. Optimize metformin, and consider reinitiating this if inadequate improvement in glucose levels. Continue home medications and pain control Monitor vitals, labs, and imaging DISPO: pending consults and clinical improvement -- Abdias Fisher MD Emergency Medicine Resident Physician This dictation was generated by voice recognition computer software. Although all attempts are madeto edit the dictation for accuracy, there may be errors in the central office equipment engineer that are not intended. * Frederic Kumar - 08/28/2022 2:36 AM EDT SPIRITUAL CARE DEPARTMENT - [facility] [place] PROGRESS NOTE Shift date: 2022 Shift day: Saturday Shift # 3 Room # 0341/0341-01 Name: Bharat Manzanares Mormonism: Place of hoahaoism: Referral: Routine Visit Admit Date & Time: 08/24/2022 12:11 PM Assessment: Bharat Manzanares is a 57 y.o. female in the hospital because of blood clots . Upon entering the room bond underwriter observes patient lying comfortably in bed. Intervention: Planer Chain Offbearer introduced self and title as Valance Cutter. Valance Cutter provided active compassionate listening. Patient expressed concerns about her current living facility. Patient expressed that she is concerned about falling, especially in the shower. Patient stated she needs to be in a assisted living facilitydue to her disabilities. Patient expressed frustration that people are not listening to her. Outcome: Patient expressed gratitude for visit. Plan: Chaplains will remain available to offer spiritual and emotional support as needed. . Spiritual Care Department [facility] [phone] 08/27/222021 Encounter Summary Service Provided For: Patient Referral/Consult From: Nurse Support System Automatic Print Developer/Mattress Packer Last Encounter 08/27/22 Complexity of Encounter Moderate Begin Time 2021 End Time 2117 Total Time Calculated 56 min Spiritual/Emotional needs Type Spiritual Distress;Spiritual Support Assessment/Intervention/Outcome Assessment Calm;Coping Intervention Prayer (assurance of)/[place] Outcome Expressed Gratitude;Coping * Nileshshaji Vásquez, PT - 08/27/2022 2:01 PM EDT Physical Therapy Facility/Department: [address] OBSERVATION Physical Therapy Progress Note Name: Bharat Manzanares : 1965 Date of Service: 08/27/2022 Discharge Recommendations: Patient would benefit from continued therapy after discharge, Other (comment) (Pt report progressive decline self care and home making, limited transportation due to incontinence and bed bugs seeking- assisted living/supervised living arrangement.) PT Equipment Recommendations Equipment Needed: No Other: Pt own rolling walker and WC Patient Diagnosis(es): The encounter diagnosis was Failure to thrive in adult. Past Medical History: has a past medical history of Acoustic neuroma ([facility]), Allergic rhinitis, Asthma, Astigmatism, Attention deficit disorder with hyperactivity, Cerebral palsy ([facility]), CHF (congestive heart failure) ([facility]), COPD (chronic obstructive pulmonary disease) ([facility]), Dental caries, Developmental academic disorder, Diarrhea, Dysphagia, GERD (gastroesophageal reflux disease), Gingival and periodontal disease, Hearing loss, Hordeolum externum of left lower eyelid, Hyperglycemia, Hyperlipidemia, Hypertension, Hypoglycemia, Hypothyroidism, Infantile cerebral palsy (HCC), Intractable migraine without aura, Irregular heartbeat, Irregular heartbeat, Learning disability, Low compliance bladder, Mental retardation, Migraine, Mixed stress and urge urinary incontinence, Morbid obesity ([facility]), Myopia, Neuropathy, Nicotine dependence, cigarettes, with other nicotine-induced disorders, Nuclear sclerotic cataract, OAB (overactive bladder), Osteoarthritis, Overactive bladder, Parasomnia, Polyneuropathy in diabetes ([facility]), Poor dentition, Simple chronic bronchitis (HCC), Stress incontinence in female, Thyroid disease, Tobacco abuse, Type 2 diabetes mellitus (HCC), Urinary incontinence, and Wears glasses. Past Surgical History: has a past surgical history that includes Upper gastrointestinal endoscopy (12/01/2019); Endoscopy, colon, diagnostic; Dental surgery (03/11/2020); and Dental surgery (N/A, 03/11/2020). Assessment Assessment: Pt presents with multipul medical problems with recent discharge from hospital. Pt states upon return home pt was unable to care for self. Pt report progressive decline self care and homemaking, limited transportation due to incontinence and bed bugs . Pt demostrates general deconditioning, high level balalnce deficits with fall risk impacting gait, balance and functioanl independence. PT will benefit from PT to progress activity and promote improved independence and safety with mobility Therapy Prognosis: Good Decision Making: Medium Complexity Requires PT Follow-Up: Yes Activity Tolerance Activity Tolerance: Patient tolerated treatment well Activity Tolerance Comments: Pt report fearful of falling , noted decline in dynamic balance and ability to care for self Plan Physcial Therapy Plan General Plan: (5x/wk) Current Treatment Recommendations: Strengthening, Balance training, Transfer training, Functional mobility training, Gait training, Stair training, Endurance training, Neuromuscular re-education, Home exercise program, Safety education & training, Therapeutic activities Safety Devices Type of Devices: Call light within reach, Left in chair, Gait belt, Nurse notified Restraints Restraints Initially in Place: No Restrictions Restrictions/Precautions Restrictions/Precautions: Up as Tolerated, Contact Precautions (Up with assist, recent R LE DVT) Required Braces or Orthoses?: No Position Activity Restriction Other position/activity restrictions: up as tolerated Subjective General Chart Reviewed: Yes Patient assessed for rehabilitation services?: Yes Additional Pertinent Hx: Pt admit to hospital after recent discharge from hospital for inability tocare for herself Response To Previous Treatment: Not applicable Family / Caregiver Present: No Follows Commands: Within Functional Limits Other (Comment): Pt awake and alert in agreement with PT intervention, okay with RN to see General Comment Comments: Pt report difficulty ambulating, decline in safety with mobilility , unsteady, weakness perepheral neuropathy, discharged returned Saturday Subjective Subjective: Truong forgetfull, I have hard time taking are of myself. RN Ok's treatment. Social/Functional History Social/Functional History Lives With: Alone Type of Home: Apartment Home Layout: One level Home Access: Elevator, Level entry Bathroom Shower/Tub: Walk-in shower Bathroom Toilet: Standard Bathroom Equipment: Grab bars in shower, Grab bars around toilet Bathroom Accessibility: Accessible (bed bug infested furnature , unsafe living environment) Home Equipment: Wheelchair-manual, Walker, 4 wheeled (pt reported using walker inside home and w/c for longer distances) Has the patient had two or more falls in the past year or any fall with injury in the past year?: No (1 fall in last 6 months due to numbness in bilateral LE's) Receives Help From: Family ADL Assistance: Independent Homemaking Assistance: Needs assistance Meal Prep: Stand by Laundry: Minimal Shopping: Total (brother in law get groceries 2x/monts) Other (Comment): (Pt report progressive decline self care and home making, limited transportation due to incontinence and bed bugs) Homemaking Responsibilities: Yes (pt reported family assists with IADLS) Meal Prep Responsibility: Secondary Laundry Responsibility: Secondary Cleaning Responsibility: Secondary Bill Paying/Finance Responsibility: Primary (Pt has a payee/ guardian (Sunday Lyons )) Shopping Responsibility: Secondary Health Care Management: Primary (Progressively worsening abiltiy due to bed bugs and incontenence issues) Ambulation Assistance: Independent Transfer Assistance: Independent Active Extractor Loader And Unloader: No Patient's Extractor Loader And Unloader Info: [employer], medical cab Mode of Transportation: Cab, Other, Car Occupation: On disability 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, 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 Leisure & Hobbies: watching TV Additional Comments: pt reported increased difficulty caring for self and completing IADLS/ADLs [facility] she reports are impacted by her memory and language Vision/Hearing Vision Vision: Impaired Vision Exceptions: Wears glasses at all times Hearing Hearing: Exceptions to [facility] Hearing Exceptions: No hearing aid Cognition Cognition Overall Cognitive Status: Exceptions Arousal/Alertness: Delayed responses to stimuli Following Commands: Follows multistep commands with increased time Attention Span: Difficulty attending to directions;Difficulty dividing attention Initiation: Requires cues for some Sequencing: Requires cues for some Cognition Comment: pt required min-mod verbal cues for redirection throughout session. pt often perseverating on different tops and would repeat self throughout session. Objective O2 Device: None (Room air) Observation/Palpation Posture: Good Observation: Pt demonstrates good sitting posture Edema: bilateral LE edema right > left, Scar: multiple bug bites and scatches from scratching itches. Gross Assessment AROM: Within functional limits PROM: Within functional limits Strength: Within functional limits Coordination: Within functional limits Tone: Normal Sensation: Intact Bed mobility Rolling to Left: Independent Rolling to Right: Independent Supine to Sit: Independent Sit to Supine: Independent Scooting: Independent Transfers Sit to Stand: Stand by assistance Stand to Sit: Stand by assistance Bed to Chair: Stand by assistance Stand Pivot Transfers: Stand by assistance Ambulation Device: Rolling Walker Assistance: Stand by assistance Quality of Gait: slow guarded gait report feeling unsteady and fearful of falling Gait Deviations: Slow Marija;Decreased head and trunk rotation Distance: 50 ft x2 with RW with SBA for safety, pt slight impulsive, needs cues forsafety. Comments: Pt report functional decline in general strength and mobiilty requiring rest breaks afterminimal activity Balance Posture: Good Sitting - Static: Good Sitting - Dynamic: Good Standing - Static: Good;- Standing - Dynamic: Fair Comments: Recommend us of walker with all gait and transfers, pt educated on stand static and dynamic balance with AD and focus on turns, direction changes and changing direction Exercise Treatment: . A/AROM Exercises: Pt participated in LE ROM exercises in all planes of motion including ankle pumps, seated marches, abduction and SAQ's x 10 each with education on technique and tolerance, risk and benefits of exercises. Pt also perfrom standing -marching in place, and forward kicks-10 reps- standing with rolling walker, CGA provided by therapist during sanding exx's. AM-PAC Score AM-PAC Inpatient Mobility Raw Score : 17 (08/27/22 1402) AM-PAC Inpatient T-Scale Score : 42.13 (08/27/22 140) Mobility Inpatient CMS 0-100% Score: 50.57 (08/27/22 1402) Mobility Inpatient CMS G-Code Modifier : CK (08/27/22 140) Goals Short Term Goals Time Frame for Short Term Goals: 06/19 Short Term Goal 1: Pt to ambulate 200 ft with least AD SBA demonstrating good toleance. Short Term Goal 2: Pt to ascend/ descend 3 steps with gait belt and right railing Short Term Goal 3: Pt to be independent with HEP for LE strengthening Short Term Goal 4: Pt to tolerate 30 min ther ex and activity to improve endurance Patient Goals Patient Goals : to be able to take care of self or get the assistance needed Education Patient Education Education Given To: Patient Education Provided: Role of Therapy;Plan of Care;Fall Prevention Strategies;Home Exercise Program;Precautions Education Method: Demonstration;Verbal Barriers to Learning: None Therapy Time Individual Concurrent Group Co-treatment Time In 1327 Time Out 1352 Minutes 25 Timed Code Treatment Minutes: 25 Minutes Sherly Vásquez PT * Chris Vallejo - 08/27/2022 11:10 AM EDT SPIRITUAL CARE DEPARTMENT - [facility] [place] PROGRESS NOTE Shift date: 08/27/2022 Shift day: Saturday Shift # 1 Room # 0341/0341-01 Name: Bharat Manzanares Mormonism: Roman Catholic Place of hoahaoism: Unknown Referral: Nurse Admit Date & Time: 08/24/2022 12:11 PM Assessment: Bharat Manzanares is a 57 y.o. female in the hospital. Upon entering the room bond underwriter observes patient sitting in chair beside bed. Intervention: Planer Chain Offbearer introduced self and title as auto porter Planer Chain Offbearer offered space for patient to express feelings, needs, and concerns and provided a ministry presence. Patient stated she would like prayer from bond underwriter. Patient shared her prayer concerns including the decision on which care facility she will be placed. Outcome: Planer Chain Offbearer and patient prayed for decisions regarding her care facility placement and her health. Patient thanked bond underwriter for visit and prayer. Plan: Chaplains will remain available to offer spiritual and emotional support as needed. . Spiritual Care Department [facility] [phone] * Abdias Fisher MD - 08/27/2022 8:17 AM EDT OBS/CDU RESIDENT NOTE Patients PCP is: Brice Mcfarland APRN SUBJECTIVE Patient seen at bedside this morning. No acute events overnight. Feels well. Expressed concern about blood glucose levels. PHYSICAL EXAM General: NAD, AO X 3 Heent: EMOI, PERRL Neck: SUPPLE, NO JVD Cardiovascular: RRR, S1S2 Pulmonary: CTAB, NO SOB Abdomen: SOFT, NTTP, ND, +BS Extremities: +2/4 PULSES DISTAL, NO SWELLING Neuro / Psych: NO NUMBNESS OR TINGLING, MENTATION AT BASELINE PERTINENT TEST /EXAMS I have reviewed all available laboratory results. MEDICATIONS CURRENT metFORMIN (GLUCOPHAGE) tablet 1,000 mg, BID WC nicotine (NICODERM CQ) 14 MG/24HR 1 patch, Daily hydrOXYzine HCl (ATARAX) tablet 10 mg, TID PRN nicotine (NICODERM CQ) 21 MG/24HR 1 patch, Daily PRN ipratropium-albuterol (DUONEB) nebulizer solution 3 mL, Q6H PRN midodrine (PROAMATINE) tablet 5 mg, Daily furosemide (LASIX) tablet 20 mg, BID budesonide-formoterol (SYMBICORT) 80-4.5 MCG/ACT inhaler 2 puff, BID amoxicillin-clavulanate (AUGMENTIN) 500-125 MG per tablet 1 tablet, 3 times per day apixaban (ELIQUIS) tablet 5 mg, BID atorvastatin (LIPITOR) tablet 20 mg, Daily buPROPion (WELLBUTRIN XL) extended release tablet 150 mg, QAM divalproex (DEPAKOTE SPRINKLE) DR capsule 250 mg, BID levothyroxine (SYNTHROID) tablet 200 mcg, Daily pantoprazole (PROTONIX) tablet 40 mg, Daily sodium chloride flush 0.9 % injection 5-40 mL, 2 times per day sodium chloride flush 0.9 % injection 5-40 mL, PRN 0.9 % sodium chloride infusion, PRN ondansetron (ZOFRAN-ODT) disintegrating tablet 4 mg, Q8H PRN Or ondansetron (ZOFRAN) injection 4 mg, Q6H PRN polyethylene glycol (GLYCOLAX) packet 17 g, Daily PRN acetaminophen (TYLENOL) tablet 650 mg, Q6H PRN Or acetaminophen (TYLENOL) suppository 650 mg, Q6H PRN All medication charted and reviewed. CONSULTS IP CONSULT TO CASE MANAGEMENT IP CONSULT TO SPIRITUAL SERVICES IP CONSULT TO SPIRITUAL SERVICES IP CONSULT TO SPIRITUAL SERVICES ASSESSMENT/PLAN Bharat Manzanares is a 57 y.o. female who presents with Inability to care for self - Consult social work for placement DVT -Was previously on this for a catheter related DVT - Eliquis 5 twice daily Cellulitis - Continue Augmentin twice daily Hyperglycemia/diabetes -Elevated, 300+; she is on metformin 500 twice daily -Increase metformin 1000 twice daily; initiate diabetic diet - Takes Glimepiride 2mg QD at home; This was held initially. Optimize metformin, and consider reinitiating this if inadequate improvement in glucose levels. Continue home medications and pain control Monitor vitals, labs, and imaging DISPO: pending consults and clinical improvement -- Abdias Fisher MD Emergency Medicine Resident Physician This dictation was generated by voice recognition computer software. Although all attempts are madeto edit the dictation for accuracy, there may be errors in the central office equipment engineer that are not intended. * Breann Reed DO - 08/27/2022 6:53 AM EDT [facility] CDU / OBSERVATION ENCOUNTER ATTENDING NOTE I performed a history and physical examination of the patient and discussed management with the resident or midlevel provider. I reviewed the resident or midlevel provider's note and agree with the documented findings and plan of care. Any areas of disagreement are noted on the chart. I was personally present for the ramsey portions of any procedures. I have documented in the chart those procedures where I was not present during the ramsey portions. I have reviewed the nurses notes. I agree with the chief complaint, past medical history, past surgical history, allergies, medications, social and family history as documented unless otherwise noted below. The Family history, social history, and ROS are effectively unchanged since admission unless noted elsewhere in the chart. This patient was placed in the observation unit for reevaluation for possible admission to the hospital The patient is a 57-year-old female who presents for evaluation of bilateral lower extremity cellulitis. She states that she is unable to care for herself at home. Case management has been working onplacement. Her bilateral lower extremity cellulitis has improved on Augmentin. Her blood sugars have been slightly elevated compared to normal and she was started on insulin sliding scale. She is currently taking Eliquis for a known DVT. We will continue to work on placement. Case management has consulted her guardian. Breann Reed DO FACEP Attending Emergency Physician * Aime Godoy RN - 08/27/2022 4:00 AM EDT Pt requesting her biostatistics manager Ilene Hernandez ([phone]) be contacted due to her increasing blood sugars. Last two blood sugars were 292 and 338. Will inform day team * Tania Lamas MD - 08/26/2022 5:09 PM EDT [facility] CDU / OBSERVATION eNCOUnter Attending NOte I performed a history and physical examination of the patient and discussed management with the resident. This patient was placed in the observation unit for reevaluation for possible admission to the hospital. I reviewed the resident s note and agree with the documented findings and plan of care. Any areas of disagreement are noted on the chart. I was personally present for the ramsey portions of any procedures. I have documented in the chart those procedures where I was not present during the ramsey portions. I have reviewed the nurses notes. I agree with the chief complaint, past medical history, past surgical history, allergies, medications, social and family history as documented unless otherwise noted below. The patient was placed in the observation unit for reevaluation for possible admission to the hospital. The Family history, social history, and ROS are effectively unchanged since admission unless noted elsewhere in the chart. No acute events overnight. Case management working with patient. Lower extremity cellulitis improving. Discharge planning. Tania Lamas MD Attending Emergency Physician * DESTINY Mata - 08/26/2022 12:26 PM EDT Speech Language Pathology Facility/Department: [facility] 3C OBSERVATION Initial Speech/Language/Cognitive Assessment NAME: Bharat Manzanares : 1965 ADMISSION DATE: 08/24/2022 ADMITTING DIAGNOSIS: has Stress incontinence in female; OAB (overactive bladder); Type 2 diabetes mellitus without complication (HCC); Acquired hypothyroidism; Simple chronic bronchitis (HCC); Migraine; Acoustic neuroma (HCC); H/O gastroesophageal reflux (GERD); Medication refill; Asthma; Astigmatis m; Attention deficit disorder with hyperactivity; 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HCC); Chronic obstructive lung disease (HCC); Developmental academic disorder; Dysphagia; Essential hypertension; Gastroesophageal reflux disease; Gingival and periodontal disease; Hearing loss; Hyperlipidemia; Infantile cerebral palsy (HCC); Intractable migraine without aura; Low compliance bladder; Mental retardation; Mixed stress and urge urinary incontinence; Morbid obesity (HCC); Myopia; Nuclear sclerotic cataract; Obesity; Parasomnia; Polyneuropathy in diabetes (HCC); Pure hyperglyceridemia; Tobacco usedisorder; Need for prophylactic vaccination and inoculation against varicella; Family history of colon cancer; Infected dental caries; Megaloblastic anemia due to vitamin B12 deficiency; Acute bacterial sinusitis; Encounter for smoking cessation counseling; Cellulitis of right lower extremity; Deepvein thrombosis (DVT) of lower extremity ([facility]); Leg swelling; Infestation by bed bug; Chronic pruritus; and Failure to thrive in adult on their problem list. DATE ONSET: Pt reports current concerns related to speech language and cognition are chronic in nature. The pt is specifically concerned for her ability to understand and recall the complex medical information presented to her during her hospital stay. Date of Eval: 08/26/2022 Evaluating Therapist: DESTINY Mata RECENT RESULTS CT OF HEAD/MRI: No recent imaging available. Primary Complaint: Bharat Manzanares is a 57 y.o. female who presents past medical history of cerebral palsy, CHF, COPD, migraines, diabetes scented to the emergency department with a concern for inability to care for herself at home. This patient was recently admitted to the hospital from 08/20 to 08/23 due to concern for DVT in the right saphenous vein extending to the common femoral vein. She wasdischarged with a prescription for Eliquis and Augmentin. On that admission, it was recommended that she go to inpatient rehab however she declined. She presented with this request. In the emergency department, the patient had unremarkable vital signs. Fingerstick glucose was normal. No additional work-up was deemed necessary. Admitted to the observation unit for placement. In relation to ST pt reported chronic hx of developmental disorder impacting her cognition and speech and language skills. She has a hx of attending speech therapy to address these concerns. Pt reports not currently attending ST and not experiencing any new onset of deficits. However, the pt is specifically concerned for her ability to understand and recall the complex medical information presented to her during her hospital stay. Pain: Pain Assessment Pain Assessment: 0-10 Pain Level: 9 Pain Location: Leg Pain Orientation: Right Vision/ Hearing Vision Vision Exceptions: Wears glasses at all times Hearing Hearing: Exceptions to WFL Hearing Exceptions: No hearing aid Assessment: Pt presents with mild expressive language, receptive language, and cognitive deficits characterizedby difficulties with working memory, attention, topic maintenance, and comprehension of complex information. Pt. Presents with extremely mild dysarthria that does not impact the intelligibility of her speech. Because the pt reports no acute change her her symptoms ST to follow up and provide treatment to address deficits impacting pt's success during hospital stay. Education provided to pt regarding recommendation and plan of treatment, additionally provided education to RN regarding strategiesto support pt's receptive language skills in relation to complex medial information. ST recommends treatment 3-5x per week at this time. Recommendations: Recommendations Requires AMMUNITION AND EXPLOSIVES HANDLER Intervention: Yes Patient Education: ST provided education on the results of the education, the nature of ST tx in the accute care setting, and the recommnedned tx plan for the pt. Patient Education Response: Verbalizes understanding D/C Recommendations: Ongoing speech therapy is recommended during this hospitalization (Pt may benefit from ST at discharge to target less accute symptoms.) Plan: Speech Therapy Prognosis Prognosis: Good Prognosis Considerations: Age;Previous Level of Function Individuals consulted Consulted and agree with results and recommendations: Patient;RN Goals: Short Term Goals Goal 1: Pt will utilize strategies to complete working memory tasks with 90% accuracy with distractions present Goal 2: Pt will demonstrate understanding and utilize strategies including self advocacy to complete complex receptive language tasks including understanidng complex information related to medical decision making with 90% accuracy. Patient/family involved in developing goals and treatment plan: yes Subjective: Previous level of function and limitations: Pt required support and prolonged time to complete cognitive and language tasks prior to intake. Pt reports she successfully utilized strategies to do thisthroughout her daily activities. Social/Functional History Lives With: Alone Type of Home: Apartment Receives Help From: Family Active Extractor Loader And Unloader: No Mode of Transportation: Cab;Other;Car Occupation: On disability Additional Comments: pt reported increased difficulty caring for self and completing [facility] she reports are impacted by her memory and language Vision Vision Exceptions: Wears glasses at all times Hearing Hearing: Exceptions to WFL Hearing Exceptions: No hearing aid Objective: Oral Motor Labial: No impairment Lingual: No impairment Mandible: No impairment Motor Speech Dysarthric Characteristics: Blended word boundaries (extremely mild) Intelligibility: No impairment Auditory Comprehension Comprehension: Exceptions Basic Questions: WFL Complex Questions: Mild One Step Commands: WFL Two Step Commands: WFL Multistep Commands: WFL Complex/Abstract Commands: Mild Common Objects: WFL Conversation: Mild Receptive Language Body part identification: 12/14 Following directions 1 component: 5/5 2 components: 4/4 3 components: 2/2 4 components: 2/2 5 components: 2/2 6 components: 2/2 Object identification: 5 Simple yes/no questions: 10/12 Sentence comprehension (yes no questions): 03/19 Paragraph comprehension: 2/2, 1/2, 2/6 Pt reports not understanding information expressed by nurses physicians and other care providers during hospital stay. Reading Comprehension Reading Status: Unable to assess (Unable to assess, pt reports baseline ability to read a second grade level) Expression Primary Mode of Expression: Verbal Verbal Expression Verbal Expression: Within functional limits Expressive Language Automatic speech Counting to 10: 10/10 Days of the week: 12/14 Months of the year: 05/21 Completing sentences: 03/19 Repetition of words: 11/13 Repetition of sentences: 10/12 Confrontational naming of objects: 11/13 Responsive naming from verbal descriptions: 04/20 [place] divergent namin Abstract divergent namin Using target words in a sentence: 09/11 Language characteristics in discourse: Pt demonstrated frequent difficulty with topic maintenance and turn tasking in conversation, however work finding, semantics, and syntax appeared intact. Pt reported awareness and chronicity of topic maintenance and turn taking deficits. Pragmatics/Social Functioning Pragmatics: Exceptions to WFL Topic Maintenance: Mild Turn Taking: Mild Cognition: Orientation Overall Orientation Status: Within Normal Limits Attention Attention: Exceptions to WFL Selective Attention: Mild Sustained Attention: Mild Memory Memory: Exceptions to WFL Short-term Memory: WFL (Pt able to complete delayed recall task of x3-5 units however pt reports deficits for working memory in home environemnt at baseline) Working Memory: Mild Complete cognitive evaluation not completed at this time as pt reports all deficits are chronic, however informal assessment of attention and memory completed. Prognosis: Speech Therapy Prognosis Prognosis: Good Prognosis Considerations: Age;Previous Level of Function Individuals consulted Consulted and agree with results and recommendations: Patient;RN Education: Patient Education: ST provided education on the results of the education, the nature of ST tx in the accute care setting, and the recommnedned tx plan for the pt. Patient Education Response: Verbalizes understanding Therapy Time: Individual Concurrent Group Co-treatment Time In 950 Time Out 1015 Minutes 25 Elisha Poon M.S., CCC-AMMUNITION AND EXPLOSIVES HANDLER * Gerda Najera - 08/26/2022 12:02 PM EDT SPIRITUAL CARE DEPARTMENT - [facility] [place] PROGRESS NOTE Shift date: 08/26/2022 Shift day: Saturday Shift # 1 Room # 0341/0341-01 Name: Bharat Manzanares Mormonism: [employer] Referral: Nurse Admit Date & Time: 08/24/2022 12:11 PM Assessment: Bharat Manzanares is a 57 y.o. female in the hospital. Following requested protocol to contact nurseprior to visiting, the nurse shared with the auto porter that the patient was inquiring about bible study in the hospital chapel, and expressed that the patient enjoys auto porter visits. Upon entering the room bond underwriter observes the patient sitting in recliner watching television, appearing cam and coping. The patient named that prayer is meaningful to them and their jose alfredo is a source of strength and comfort. The patient expressed a desire to go to the chapel later in the day to sit and pray, they shared they heard it had beautiful stained glass. Theologically, the patient expressed that Aj helps those who help themselves, and they believe they are doing everything they jyotsna help create a better life for themself. The patient expressed concern for other tenants who also live at the [facility], specifically speaking to their experience of the infestation of bedbugs. The patient shared how theirexperience of bedbugs has impacted their ability to engage socially with others, as well as has kept them from being able to attend and healthily maintain various doctor's appointments. The patient ap peared extremely direct in naming their needs, hopes, and desires for themself. The patient shared that they are hopeful to be discharged and sent to [facility], a long-term nursing/assisted living community, due to their inability to take care of themself and the unsafe/unhealthy conditions of their current living situation at [facility]. Intervention: Planer Chain Offbearer introduced self and title as auto porter Planer Chain Offbearer offered space for the patient to express feelings, needs, and concerns and provided a ministry presence. Valance Cutter and patient prayed together. Valance Cutter shared with the patient that [employer] [facility] begins at noon and is available on channel 75. Outcome: Patient expressed gratitude for the visit and gratitude to all the chaplains that have visited withthem. Plan: Chaplains will remain available to offer spiritual and emotional support as needed. 08/26/22 1132 Encounter Summary Service Provided For: Patient Referral/Consult From: Nurse Support System Other (Comment) (Legal Guardian) Last Encounter 08/26/22 Complexity of Encounter Low Begin Time 1035 End Time 1125 Total Time Calculated 50 min Assessment/Intervention/Outcome Assessment Anxious;Calm;Coping;Loneliness;Powerlessness Intervention Active listening;Explored/Affirmed feelings, thoughts, concerns;Prayer (assurance of)/[place];Sustaining Presence/Ministry of presence Outcome Comfort;Connection/Belonging;Engaged in conversation;Expressed feelings, needs, and concerns;Expressed Gratitude;Other (comment) (hopeful) . Spiritual Care Department [facility] [phone] * Corina Cantu DO - 08/26/2022 7:41 AM EDT OBS/CDU RESIDENT NOTE Patients PCP is: Brice Mcfarland APRN SUBJECTIVE No acute events overnight. Vitals remain stable, afebrile. Has been able to tolerate a full diet without nausea or vomiting. Patient has no complaints this AM PHYSICAL EXAM General: NAD, sitting up in chair Heent: normocephalic, atraumatic Cardiovascular: RRR Pulmonary: CTAB Abdomen: SOFT, NTTP, ND Extremities: mild BLE edema Neuro / Psych: NO NUMBNESS OR TINGLING, MENTATION AT BASELINE PERTINENT TEST /EXAMS I have reviewed all available laboratory results. MEDICATIONS CURRENT nicotine (NICODERM CQ) 14 MG/24HR 1 patch, Daily hydrOXYzine HCl (ATARAX) tablet 10 mg, TID PRN nicotine (NICODERM CQ) 21 MG/24HR 1 patch, Daily PRN ipratropium-albuterol (DUONEB) nebulizer solution 3 mL, Q6H PRN midodrine (PROAMATINE) tablet 5 mg, Daily furosemide (LASIX) tablet 20 mg, BID budesonide-formoterol (SYMBICORT) 80-4.5 MCG/ACT inhaler 2 puff, BID amoxicillin-clavulanate (AUGMENTIN) 500-125 MG per tablet 1 tablet, 3 times per day apixaban (ELIQUIS) tablet 5 mg, BID atorvastatin (LIPITOR) tablet 20 mg, Daily buPROPion (WELLBUTRIN XL) extended release tablet 150 mg, QAM divalproex (DEPAKOTE SPRINKLE) DR capsule 250 mg, BID levothyroxine (SYNTHROID) tablet 200 mcg, Daily pantoprazole (PROTONIX) tablet 40 mg, Daily sodium chloride flush 0.9 % injection 5-40 mL, 2 times per day sodium chloride flush 0.9 % injection 5-40 mL, PRN 0.9 % sodium chloride infusion, PRN ondansetron (ZOFRAN-ODT) disintegrating tablet 4 mg, Q8H PRN Or ondansetron (ZOFRAN) injection 4 mg, Q6H PRN polyethylene glycol (GLYCOLAX) packet 17 g, Daily PRN acetaminophen (TYLENOL) tablet 650 mg, Q6H PRN Or acetaminophen (TYLENOL) suppository 650 mg, Q6H PRN All medication charted and reviewed. CONSULTS IP CONSULT TO CASE MANAGEMENT IP CONSULT TO SPIRITUAL SERVICES IP CONSULT TO SPIRITUAL SERVICES ASSESSMENT/PLAN Bharat Manzanares is a 57 y.o. female who presents with Inability to care for self - Consult social work for placement DVT - Was previously on this for a catheter related DVT - Eliquis 5 twice daily Cellulitis - Continue Augmentin twice daily -- Corina Cantu DO Emergency Medicine Resident Physician This dictation was generated by voice recognition computer software. Although all attempts are madeto edit the dictation for accuracy, there may be errors in the central office equipment engineer that are not intended. * Jodee Ujvagi - 08/25/2022 10:02 PM EDT SPIRITUAL CARE DEPARTMENT - [facility] [place] PROGRESS NOTE Shift date: 08/25/2022 Shift day: Saturday Shift # 3 Room # 0341/0341-01 Name: Bharat Manzanares Mormonism: [employer] Place of hoahaoism: Unknown Referral: Routine Visit Admit Date & Time: 08/24/2022 12:11 PM Assessment: Bharat Manzanares is a 57 y.o. female in the hospital because of Cellulitis to the Toe as well as a Blood Clot in her leg. Patient was sitting up in hospital bed, when auto porter visited. Per report, patient is MRDD. Intervention: Planer Chain Offbearer introduced self and title as auto porter. Patient shared about her symptoms and expressed feelings of worry and concern regarding her home. Per patient, her apartment is run by a slum landlord and it is covered in bed bugs. Patient expressed deep desire to be transferred to [facility] for rehab, and then to stay at the facility on a more permanent basis. Per patient, she has good supportin her parents as well as her court-appointed guardian, Jessica Pierce. Patient expressed several concerns regarding needs for a winter coat, diabetic shoes, adult briefs, all of which are in her apartment and unable to be used. Patient also expressed concern over her need for support with her Medicaid and Medicare. Valance Cutter provided an active listening presence throughout visit. Valance Cutter offered prayer and hospitality during visit. Outcome: Patient thanked auto porter for visit. Plan: Chaplains will remain available to offer spiritual and emotional support as needed. 08/25/222201 Encounter Summary Service Provided For: Patient Referral/Consult From: Patient;Multi-disciplinary team (Spiritual Care Consult) Support System Parent Last Encounter 08/25/22 Complexity of Encounter Moderate Begin Time 2201 End Time 2250 Total Time Calculated 49 min Spiritual/Emotional needs Type Spiritual Distress;Spiritual Support Assessment/Intervention/Outcome Assessment Anxious;Powerlessness Intervention Active listening;Discussed illness injury and it s impact;Explored/Affirmed feelings, thoughts, concerns;Explored Coping Skills/Resources;Nurtured Hope;Sustaining Presence/Ministry of presence Outcome Comfort;Coping;Receptive Plan and Referrals Plan/Referrals Continue to visit, (comment) (as needed) . Spiritual Care Department [facility] [phone] * Frederic Dc MD - 08/25/2022 4:20 PM EDT [facility] CDU / OBSERVATION ENCOUNTER ATTENDING NOTE I performed a history and physical examination of the patient and discussed management with the resident or midlevel provider. I reviewed the resident or midlevel provider's note and agree with the documented findings and plan of care. Any areas of disagreement are noted on the chart. I was personally present for the ramsey portions of any procedures. I have documented in the chart those procedures where I was not present during the ramsey portions. I have reviewed the nurses notes. I agree with the chief complaint, past medical history, past surgical history, allergies, medications, social and family history as documented unless otherwise noted below. The Family history, social history, and ROS are effectively unchanged since admission unless noted elsewhere in the chart. This patient was placed in the observation unit for reevaluation for possible admission to the hospital Patient admitted for placement. Patient having difficulty at home and unable to care for self. Patient was recently admitted and unable to care for self on arriving at home. Patient for admission forongoing treatment. Frederic Dc MD Attending Emergency Physician * Ilene Rogers, PT - 08/25/2022 1:44 PM EDT Physical Therapy Facility/Department: [address] OBSERVATION Physical Therapy Initial Assessment Name: Bharat Manzanares : 1965 Date of Service: 08/25/2022 Chief Complaint Patient presents with Other Wants placed in assisted living Discharge Recommendations: Patient would benefit from continued therapy after discharge, Other (comment) (Pt report progressive decline self care and home making, limited transportation due to incontinence and bed bugs seekingLTC assisted living) PT Equipment Recommendations Equipment Needed: No Other: Pt own rolling walker and WC Patient Diagnosis(es): The encounter diagnosis was Failure to thrive in adult. Past Medical History: has a past medical history of Acoustic neuroma ([facility]), Allergic rhinitis, Asthma, Astigmatism, Attention deficit disorder with hyperactivity, Cerebral palsy ([facility]), CHF (congestive heart failure) ([facility]), COPD (chronic obstructive pulmonary disease) ([facility]), Dental caries, Developmental academic disorder, Diarrhea, Dysphagia, GERD (gastroesophageal reflux disease), Gingival and periodontal disease, Hearing loss, Hordeolum externum of left lower eyelid, Hyperglycemia, Hyperlipidemia, Hypertension, Hypoglycemia, Hypothyroidism, Infantile cerebral palsy ([facility]), Intractable migraine without aura, Irregular heartbeat, Irregular heartbeat, Learning disability, Low compliance bladder, Mental retardation, Migraine, Mixed stress and urge urinary incontinence, Morbid obesity ([facility]), Myopia, Neuropathy, Nicotine dependence, cigarettes, with other nicotine-induced disorders, Nuclear sclerotic cataract, OAB (overactive bladder), Osteoarthritis, Overactive bladder, Parasomnia, Polyneuropathy in diabetes ([facility]), Poor dentition, Simple chronic bronchitis ([facility]), Stress incontinence in female, Thyroid disease, Tobacco abuse, Type 2 diabetes mellitus ([facility]), Urinary incontinence, and Wears glasses. Past Surgical History: has a past surgical history that includes Upper gastrointestinal endoscopy (12/01/2019); Endoscopy, colon, diagnostic; Dental surgery (03/11/2020); and Dental surgery (N/A, 03/11/2020). Assessment Body Structures, Functions, Activity Limitations Requiring Skilled Therapeutic Intervention: Decreased body mechanics;Decreased functional mobility ;Decreased sensation;Decreased tolerance to work activity;Decreased balance;Increased pain Assessment: Pt presents with multipul medical problems with recent discharge from hospital. Pt states upon return home pt was unable to care for self. Pt report progressive decline self care and homemaking, limited transportation due to incontinence and bed bugs . Pt demostrates general deconditioning, high level balalnce deficits with fall risk impacting gait, balance and functioanl independence. PT will benefit from PT to progress activity and promote improved independence and safety with mobility Therapy Prognosis: Good Decision Making: Medium Complexity Clinical Presentation: Evolving Requires PT Follow-Up: Yes Activity Tolerance Activity Tolerance: Patient tolerated evaluation without incident Activity Tolerance Comments: Pt report fearful of falling , noted decline in dynamic balance and ability to care for self Plan Physcial Therapy Plan General Plan: (5x/wk) Current Treatment Recommendations: Strengthening, Balance training, Transfer training, Functional mobility training, Gait training, Stair training, Endurance training, Neuromuscular re-education, Home exercise program, Safety education & training, Therapeutic activities Safety Devices Type of Devices: Call light within reach, Left in chair, Gait belt, Nurse notified Restraints Restraints Initially in Place: No Restrictions Restrictions/Precautions Restrictions/Precautions: Up as Tolerated (Up with assist) Required Braces or Orthoses?: No Position Activity Restriction Other position/activity restrictions: up as tolerated Subjective General Chart Reviewed: Yes Patient assessed for rehabilitation services?: Yes Additional Pertinent Hx: Pt admit to hospital after recent discharge from hospital for Response To Previous Treatment: Not applicable Family / Caregiver Present: No Follows Commands: Within Functional Limits Other (Comment): Pt awake and alert in agreement with PT intervention, okay with RN to see General Comment Comments: Pt report difficulty ambulating, decline in safety with mobilility , unsteady, weakness perepheral neuropathy, discharged returned Saturday Subjective Subjective: righ leg pain 02/17 2/2 recent blood clot, Social/Functional History Social/Functional History Lives With: Alone Type of Home: Apartment (4th floor) Home Layout: One level Home Access: Elevator, Level entry Bathroom Shower/Tub: Walk-in shower Bathroom Toilet: Standard Bathroom Equipment: Grab bars in shower, Grab bars around toilet Bathroom Accessibility: Accessible (bed bug infested furnature , unsafe living environment) Home Equipment: Wheelchair-manual, Walker, 4 wheeled (pt reported using walker inside home and w/c for longer distances) Has the patient had two or more falls in the past year or any fall with injury in the past year?: No (1 fall in last 6 months due to numbness in bilateral LE's) Receives Help From: Family (pay neighbors to go to store, mother unable to assist with care no family support) ADL Assistance: Independent Homemaking Assistance: Needs assistance Meal Prep: Stand by Laundry: Minimal Shopping: Total (brother in law get groceries 2x/monts) Other (Comment): (Pt report progressive decline self care and home making, limited transportation due to incontinence and bed bugs) Homemaking Responsibilities: Yes (pt reported family assists with IADLS) Meal Prep Responsibility: Secondary Laundry Responsibility: Secondary Cleaning Responsibility: Secondary Bill Paying/Finance Responsibility: Primary (Pt has a payee/ guardian (Sunday Lyons )) Shopping Responsibility: Secondary Health Care Management: Primary (Progressively worsening abiltiy due to bed bugs and incontenence issues) Ambulation Assistance: Independent Transfer Assistance: Independent Active Extractor Loader And Unloader: No Patient's Extractor Loader And Unloader Info: [employer], medical cab Mode of Transportation: Car, Cab, Other ([employer] or medical cab walking , unable to to negotiate steps unable to walke distance due to deconditioning) Occupation: On disability 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, 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 Leisure & Hobbies: watching TV Additional Comments: pt reported increased difficulty caring for self and completing IADLS/ADLs Vision/Hearing Vision Vision: Impaired Vision Exceptions: Wears glasses for distance Hearing Hearing: Exceptions to WFL Hearing Exceptions: No hearing aid (deaf in left Ear, h/o rx tx to left eardrum, need hearing aids,appt to spanish moss picker ) Cognition Cognition Overall Cognitive Status: Exceptions Arousal/Alertness: Inconsistent responses to stimuli Following Commands: Follows one step commands consistently;Inconsistently follows commands (Pt planto go to nursing not able to take care of self) Attention Span: Difficulty attending to directions;Difficulty dividing attention (Pt lack insight) Objective Heart Rate: 62 BP: 105/63 MAP (Calculated): 77 Resp: 18 SpO2: 94 % O2 Device: None (Room air) Observation/Palpation Posture: Good Observation: Pt demonstrates good sitting posture Edema: bilateral LE edema right > left, Scar: multiple bug bites and scatches from scratching itches. Gross Assessment AROM: Within functional limits PROM: Within functional limits Strength: Within functional limits Coordination: Within functional limits Tone: Normal Sensation: Intact AROM RLE (degrees) RLE AROM: WFL AROM LLE (degrees) LLE AROM : WFL AROM RUE (degrees) RUE AROM : WFL AROM LUE (degrees) LUE AROM : WFL Strength RLE Strength RLE: WFL Strength LLE Strength LLE: WFL Strength RUE Strength RUE: WFL Strength LUE Strength LUE: WFL Strength Other Other: Pt report general weakness and deconditioning pt report progressive weakness Bed Mobility Training Bed Mobility Training: No ([facility] Balance Sitting: Intact (~18 minutes in chair) Standing: Intact (~3 minutes. pt completed functional mobility around room to get pill bottles and stood for brief change. pt provided with CGA/SBA throughout with no DME) Transfer Training Transfer Training: Yes Overall Level of Assistance: Contact-guard assistance (pt completed 3x during session) Sit to Stand: Contact-guard assistance Stand to Sit: Contact-guard assistance Gait Overall Level of Assistance: Contact-guard assistance;Minimum assistance Bed mobility Rolling to Left: Independent Rolling to Right: Independent Supine to Sit: Independent Sit to Supine: Independent Scooting: Independent Transfers Sit to Stand: Stand by assistance Stand to Sit: Stand by assistance Bed to Chair: Stand by assistance Stand Pivot Transfers: Stand by assistance Ambulation Device: Rolling Walker Assistance: Stand by assistance Quality of Gait: slow guarded gait report feeling unsteady and fearful of falling Gait Deviations: Slow Marija;Decreased head and trunk rotation Distance: 50 ft with RW with CGA for safety, pt able to ambulate Comments: Pt report functional decline in general strength and mobiilty requiring rest breaks afterminimal activity Balance Posture: Good Sitting - Static: Good Sitting - Dynamic: Good Standing - Static: Good;- Standing - Dynamic: Fair Comments: Recommend us of walker with all gait and transfers, pt educated on stand static and dynamic balance with AD and focus on turns, direction changes and changing direction Functional Reach Test Fall Risk (Score of <10 inches is fall risk): Yes Exercise Treatment: . A/AROM Exercises: Pt participated in LE ROM exercises in all planes of motion including ankle pumps, seated marches, abduction and SAQ's x 10 each with education on technique and tolerance, risk and benefits of exercises. AM-PAC Score AM-PAC Inpatient Mobility Raw Score : 20 (08/25/221343) AM-PAC Inpatient T-Scale Score : 47.67 (08/25/221343) Mobility Inpatient CMS 0-100% Score: 35.83 (08/25/221343) Mobility Inpatient CMS G-Code Modifier : CJ (08/25/221343) Goals Short Term Goals Time Frame for Short Term Goals: 06/19 Short Term Goal 1: Pt to ambulate 200 ft with least AD SBA demonstrating good toleance. Short Term Goal 2: Pt to ascend/ descend 3 steps with gait belt and right railing Short Term Goal 3: Pt to be independent with HEP for LE strengthening Short Term Goal 4: Pt to tolerate 30 min ther ex and activity to improve endurance Patient Goals Patient Goals : to be able to take care of self or get the assistance needed Education Patient Education Education Given To: Patient Education Provided: Role of Therapy;Plan of Care;Fall Prevention Strategies;Home Exercise Program;Precautions Education Method: Demonstration;Verbal Barriers to Learning: None Therapy Time Individual Concurrent Group Co-treatment Time In 1000 Time Out 1100 Minutes 60 Timed Code Treatment Minutes: 40 Minutes Ilene Rogers PT, DPT * Davida Douglas OT - 08/25/2022 1:03 PM EDT Occupational Therapy Facility/Department: [address] Occupational Therapy Initial Assessment Name: Bharat Manzanares : 1965 Date of Service: 08/25/2022 Discharge Recommendations: Further therapy recommended at discharge. Patient Diagnosis(es): The encounter diagnosis was Failure to thrive in adult. Past Medical History: has a past medical history of Acoustic neuroma ([facility]), Allergic rhinitis, Asthma, Astigmatism, Attention deficit disorder with hyperactivity, Cerebral palsy ([facility]), CHF (congestive heart failure) ([facility]), COPD (chronic obstructive pulmonary disease) ([facility]), Dental caries, Developmental academic disorder, Diarrhea, Dysphagia, GERD (gastroesophageal reflux disease), Gingival and periodontal disease, Hearing loss, Hordeolum externum of left lower eyelid, Hyperglycemia, Hyperlipidemia, Hypertension, Hypoglycemia, Hypothyroidism, Infantile cerebral palsy ([facility]), Intractable migraine without aura, Irregular heartbeat, Irregular heartbeat, Learning disability, Low compliance bladder, Mental retardation, Migraine, Mixed stress and urge urinary incontinence, Morbid obesity ([facility]), Myopia, Neuropathy, Nicotine dependence, cigarettes, with other nicotine-induced disorders, Nuclear sclerotic cataract, OAB (overactive bladder), Osteoarthritis, Overactive bladder, Parasomnia, Polyneuropathy in diabetes ([facility]), Poor dentition, Simple chronic bronchitis ([facility]), Stress incontinence in female, Thyroid disease, Tobacco abuse, Type 2 diabetes mellitus ([facility]), Urinary incontinence, and Wears glasses. Past Surgical History: has a past surgical history that includes Upper gastrointestinal endoscopy (12/01/2019); Endoscopy, colon, diagnostic; Dental surgery (03/11/2020); and Dental surgery (N/A, 03/11/2020). Assessment Performance deficits / Impairments: Decreased functional mobility ;Decreased ADL status;Decreased endurance;Decreased high-level IADLs;Decreased fine motor control;Decreased coordination;Decreased strength;Decreased cognition Assessment: pt demonstrated above deficits impacting occupational performance. pt verbalized concerns with inability to care for self in prior living environment. pt would benefit from further therapy at discharge in order to increase safety and independence with ADLs and functional transfers/funcitonal mobility. Prognosis: Good Decision Making: Medium Complexity REQUIRES OT FOLLOW-UP: Yes Activity Tolerance Activity Tolerance: Patient Tolerated treatment well Plan Occupational Therapy Plan Times Per Week: 2-3x/wk Restrictions Restrictions/Precautions Restrictions/Precautions: Up as Tolerated (Up with assist) Required Braces or Orthoses?: No Position Activity Restriction Other position/activity restrictions: up as tolerated Subjective General Patient assessed for rehabilitation services?: Yes Family / Caregiver Present: No General Comment Comments: RNok'd for therapy this morning. pt agreeable to participate in session and cooperative throughout. pt reported 01/17 R LE pain, pt able to continue with session Social/Functional History Social/Functional History Lives With: Alone Type of Home: Apartment (4th floor) Home Layout: One level Home Access: Elevator, Level entry Bathroom Shower/Tub: Walk-in shower Bathroom Toilet: Standard Bathroom Equipment: Grab bars in shower, Grab bars around toilet Home Equipment: Wheelchair-manual, Walker, 4 wheeled (pt reported using walker inside home and w/c for longer distances) Receives Help From: Family (pay neighbors to go to store, mother unable to assist with care no family support) ADL Assistance: Independent Homemaking Assistance: Needs assistance Homemaking Responsibilities: Yes (pt reported occasionally assistance from brother) Ambulation Assistance: Independent Transfer Assistance: Independent Active Extractor Loader And Unloader: No Patient's Extractor Loader And Unloader Info: [employer], medical cab Occupation: On disability 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 pt completed functional mobility around room to get pill bottles and stood for brief change. pt provided with CGA/SBA throughout with no DME) Transfer Training Transfer Training: Yes Overall Level of Assistance: Contact-guard assistance (pt completed 3x during session) Sit to Stand: Contact-guard assistance Stand to Sit: Contact-guard assistance Gait Overall Level of Assistance: Contact-guard assistance;Minimum assistance AROM: Within functional limits Strength: Generally decreased, functional (B shoulder and B information services consultant 4/5) Coordination: Generally decreased, functional (pt demonstrated slightly decreased coordination and information services consultant strength. pt required increased time and effort to open pills bottles) Tone: Normal Sensation: Impaired (pt reported N/T to R toe) ADL Feeding: Modified independent Grooming: Modified independent UE Bathing: Stand by assistance LE Bathing: Minimal assistance UE Dressing: Stand by assistance LE Dressing: Minimal assistance Toileting: Minimal assistance Additional Comments: OT facilitated pt in changing brief and completing francisca- care/bottom care whilestanding at chair side. pt required min A for donning tab style brief but able to complete francisca-care while standing with SBA. pt also demonstrated ability to open and close pill bottles, pt required increased time to complete Vision Vision: Impaired Vision Exceptions: Wears glasses at all times Hearing Hearing: Exceptions to WFL (deaf L Ear) Hearing Exceptions: No hearing aid Cognition Overall Cognitive Status: Exceptions Arousal/Alertness: Inconsistent responses to stimuli Following Commands: Follows multistep commands with repitition Attention Span: Difficulty attending to directions;Difficulty dividing attention Initiation: Requires cues for some Sequencing: Requires cues for some Cognition Comment: pt required min-mod verbal cues for redirection throughout session. pt often perseverating on different tops and would repeat self throughout session. Education Given To: Patient Education Provided: Role of Therapy;Plan of Care;Transfer Training Education Method: Verbal Barriers to Learning: None Education Outcome: Verbalized understanding LUE AROM (degrees) LUE AROM : WFL Left Hand AROM (degrees) Left Hand AROM: WFL RUE AROM (degrees) RUE AROM : WFL Right Hand AROM (degrees) Right Hand AROM: WFL Hand Dominance Hand Dominance: Right AM-PAC Score AM-PAC Inpatient Daily Activity Raw Score: 20 (08/25/22 1301) AM-PAC Inpatient ADL T-Scale Score : 42.03 (08/25/22 1301) ADL Inpatient CMS 0-100% Score: 38.32 (08/25/22 1301) ADL Inpatient CMS G-Code Modifier : CJ (08/25/22 130) Goals Short Term Goals Time Frame for Short Term Goals: pt will, by discharge Short Term Goal 1: complete LB ADLs and toileting tasks with SBA and set up Short Term Goal 2: complete UB ADLs with mod I Short Term Goal 3: dem supervision during functional transfers/functional mobility with LRD, as needed Short Term Goal 4: dem ~8 minutes dynamic standing tolerance with supervision in order to complete functional tasks Short Term Goal 5: maintain attention to task for ~5 minutes with 1-2 verbal cues for redirection Therapy Time Individual Concurrent Group Co-treatment Time In 1109 Time Out 1131 Minutes 22 Timed Code Treatment Minutes: 8 Minutes Davida Douglas OTR/L * Jacinto Arabella - 08/25/2022 12:07 AM EDT SPIRITUAL CARE DEPARTMENT - [facility] [place] PROGRESS NOTE Shift date: 08/24/22 Shift day: Saturday Shift # 2 Room # 0341/0341-01 Name: Bharat Manzanares Mormonism: Roman Catholic Place of hoahaoism: Referral: Routine Visit Admit Date & Time: 08/24/2022 12:11 PM Assessment: Bharat Manzanares is a 57 y.o. female Intervention: Planer Chain Offbearer introduced self and title as auto porter. Patient appeared receptive to auto porter presence and engaged in conversation. Planer Chain Offbearer offered space for patient to express feelings, needs, and concerns and provided a ministry presence. Patient discussed wanted to move from her current living arrangementto more of an assisted living and is hopeful of the move. Patient discussed her current health and what led to her hospital visit. Valance Cutter provided a supportive presence through active listening andwords of affirmation. Patient requested prayer with specific intentions which was facilitated by auto porter. Outcome: Patient expressed gratitude for visit and is hopeful of new living arrangements. Plan: Chaplains will remain available to offer spiritual and emotional support as needed. . Spiritual Care Department [facility] [phone] [facility] Work Phone: [phone] Hospital course Narrative* Corina Cantu, DO - 08/31/2022 10:08 AM EDT Images from the original note were not included. CDU Discharge Summary Patient: Bharat Manzanares Date of : 1965 Acct: [id number] Primary Care Physician: Brice Mcfarland APRN Admit date: 08/24/2022 12:11 PM Discharge date: 10:07 AM 08/31/2022 Discharge Diagnoses: 1.) chronic inability to care for herself, placement needs. No medical complaints. Follow-up: Call today/tomorrow for a follow up appointment with Brice Mcfarland APRN , or return to the Emergency Room with worsening symptoms Stressed to patient the importance of following up with primary care doctor for further workup/management of symptoms. Pt verbalizes understanding and agrees with plan. Discharge Medication Changes: Medication List START taking these medications loperamide 2 MG capsule Commonly known as: IMODIUM Take 1 capsule by mouth 4 times daily as needed for Diarrhea CONTINUE taking these medications acetaminophen 500 MG tablet Commonly known as: TYLENOL Take 1 tablet by mouth 4 times daily as needed for Pain Advair HFA 115-21 MCG/ACT inhaler Generic drug: fluticasone-salmeterol Inhale 2 puffs into the lungs 2 times daily apixaban 5 MG Tabs tablet Commonly known as: Eliquis Take 2 tablets by mouth 2 times daily for 7 days, THEN 1 tablet 2 times daily. Start taking on: August 21, 2022 atorvastatin 20 MG tablet Commonly known as: LIPITOR buPROPion 150 MG extended release tablet Commonly known as: WELLBUTRIN XL Compressor/Nebulizer Misc Use for shortness of breath as needed diphenhydrAMINE 25 MG capsule Commonly known as: BENADRYL divalproex [address] capsule Commonly known as: DEPAKOTE SPRINKLE fluticasone 50 MCG/ACT nasal spray Commonly known as: FLONASE 2 sprays by Each Nostril route daily furosemide 20 MG tablet Commonly known as: LASIX glimepiride 2 MG tablet Commonly known as: AMARYL Hydrocerin Crea cream Apply topically 2 times daily Incontinence Brief [facility] Patient states she needs xl in the select brand ipratropium-albuterol 0.5-2.5 (3) MG/3ML Soln nebulizer solution Commonly known as: DUONEB Take 3 mLs by nebulization every 6 hours as needed for Shortness of Breath levothyroxine 175 MCG tablet Commonly known as: SYNTHROID melatonin 3 MG Tabs tablet metFORMIN HCl 500 MG/5ML Soln midodrine 5 MG tablet Commonly known as: PROAMATINE Myrbetriq 50 MG Tb24 Generic drug: mirabegron * nicotine 21 MG/24HR Commonly known as: NICODERM CQ * Nicotrol 10 MG inhaler Generic drug: nicotine INHALE 1 PUFF INTO THE LUNGS NEEDED FOR SMOKING CESSATION ondansetron 4 MG disintegrating tablet Commonly known as: Zofran ODT Take 1 tablet by mouth every 8 hours as needed for Nausea oxybutynin 5 MG extended release tablet Commonly known as: DITROPAN-XL paliperidone palmitate 234 MG/1.5ML Susp IM injection Commonly known as: INVEGA SUSTENNA pantoprazole 40 MG tablet Commonly known as: PROTONIX potassium chloride 20 MEQ/15ML (10%) oral solution TAKE 15 MLS BY MOUTH DAILY ProAir HFA 108 (90 Base) MCG/ACT inhaler Generic drug: albuterol sulfate HFA INHALE 2 PUFFS INTO THE LUNGS EVERY 6 HOURS NEEDED FOR WHEEZING Vitamin D-3 5000 UNIT/ML Liqd ZOLMitriptan 5 MG tablet Commonly known as: ZOMIG * This list has 2 medication(s) that are the same as other medications prescribed for you. Read thedirections carefully, and ask your doctor or other care provider to review them with you. ASK your doctor about these medications amoxicillin-clavulanate 500-125 MG per tablet Commonly known as: AUGMENTIN Take 1 tablet by mouth every 8 hours for 20 doses Ask about: Should I take this medication? Where to Get Your Medications These medications were sent to [facility] - [place], [place] - [address] [facility] - P [phone] - F [phone] [place], [place] [address] [address] loperamide 2 MG capsule Diet: ADULT DIET; Regular; 3 carb choices (45 gm/meal), advance as tolerated Activity: As tolerated Consultants: IP CONSULT TO CASE MANAGEMENT IP CONSULT TO SPIRITUAL SERVICES IP CONSULT TO SPIRITUAL SERVICES IP CONSULT TO SPIRITUAL SERVICES Procedures: Not indicated Diagnostic Test: Results for orders placed or performed during the hospital encounter of 08/24/22 POC Glucose Fingerstick Result Value Ref Range POC Glucose 117 (H) 65 - 105 mg/dL POC Glucose Fingerstick Result Value Ref Range POC Glucose 292 (H) 65 - 105 mg/dL POC Glucose Fingerstick Result Value Ref Range POC Glucose 338 (H) 65 - 105 mg/dL POC Glucose Fingerstick Result Value Ref Range POC Glucose 301 (H) 65 - 105 mg/dL POC Glucose Fingerstick Result Value Ref Range POC Glucose 209 (H) 65 - 105 mg/dL POC Glucose Fingerstick Result Value Ref Range POC Glucose 179 (H) 65 - 105 mg/dL POC Glucose Fingerstick Result Value Ref Range POC Glucose 135 (H) 65 - 105 mg/dL POC Glucose Fingerstick Result Value Ref Range POC Glucose 141 (H) 65 - 105 mg/dL POC Glucose Fingerstick Result Value Ref Range POC Glucose 147 (H) 65 - 105 mg/dL POC Glucose Fingerstick Result Value Ref Range POC Glucose 180 (H) 65 - 105 mg/dL No results found. Physical Exam: General appearance - NAD, sitting up in chair Lungs -CTAB, no R/R/R Heart - RRR, no M/R/G Abdomen - Soft, NT/ND Neurological: MAEx4, No focal motor deficit, sensory loss Extremities - Cap refil <2 sec in all ext., no edema Skin -warm, dry Hospital Course: Clinical course has improved, labs and imaging reviewed. Bharat Manzanares originally presented to the hospital on 08/24/2022 12:11 PM with inability to care for herself. At that time it was determined that She required further observation and social work consult. Many discussions with family and guardian regarding placement. Precert pending to [facility] Labs and imaging were followed daily. Imaging results as above. She is medically stable to be discharged. Disposition: Home Patient stated that they will not drive themselves home from the hospital if they have gotten pain killers/ narcotics earlier that day and that they will arrange for transportation on their own or work with the case monitor for a ride. Patient counseled NOT to drive while under the influence of narcotics/ pain killers. Condition: Good Patient stable and ready for discharge home. I have discussed plan of care with patient and they are in understanding. They were instructed to read discharge paperwork. All of their questions and concerns were addressed. Time Spent: 4 day -- Corina Cantu DO Emergency Medicine Resident Physician This dictation was generated by voice recognition computer software. Although all attempts are madeto edit the dictation for accuracy, there may be errors in the central office equipment engineer that are not intended. documented in this encounterBON Cloud Floor Phone: [phone] Hospital Discharge instructions* Discharge Instructions* Corina Cantu DO - 08/30/2022 9:53 AM EDT You were admitted to the hospital for inability to care for yourself. If you notice any concerning symptoms please return to the ER immediately. These can include but are not limited to: fevers, chills, shortness of breath, vomiting, weakness of the extremities, changes in your mental status, numbness, pale extremities, or chest pain. Medications: Continue taking your home medications as previously directed. Follow up: Please follow up with your primary care doctor within one week or as needed. * Discharge Instr - PADMINI* Sangeeta Kearney RN - 08/26/2022 10:53 AM EDT Images from the original note were not included. Continuity of Care Form Patient Name: Bharat Manzanares : 1965 Admit date: 08/24/2022 Discharge date: 09/04/2022 Code Status Order: Full Code Advance Directives: Admitting Physician: Frederic Dc MD PCP: Brice Mcfarland APRN Discharging Nurse: Sangeeta Gil RN Discharging Hospital Unit/Room#: 0341/0341-01 Discharging Unit Emergency Contact: Extended Emergency Contact Information Primary Emergency Contact: Dutch Manzanares Address: [place] [address] [facility] Mobile Relation: Parent Secondary Emergency Contact: Radha Ruizire Address: [place] [facility] Relation: Parent Guardian: JESSICA LOPEZ Mobile Relation: Legal Guardian Past Surgical History: Past Surgical History: Procedure Laterality Date DENTAL SURGERY 03/11/2020 extractions x4 DENTAL SURGERY N/A 03/11/2020 SURGICAL EXTRACTION OF TEETH 1, 2, 14, 16 performed by Mitch Mccall DDS at [facility] OR ENDOSCOPY, COLON, DIAGNOSTIC UPPER GASTROINTESTINAL ENDOSCOPY 12/01/2019 EGD BIOPSY performed by Olga Zeng MD at [facility] OR Immunization History: Immunization History Administered Date(s) Administered COVID-19, PFIZER PURPLE top, DILUTE for use, (age 12 y+), 30mcg/0.3mL 06/19/2020, 07/10/2020, 03/06/2021 INFLUENZA, INTRADERMAL, QUADRIVALENT, PRESERVATIVE FREE 03/25/2018 Influenza A ([id number]) Vaccine PF IM 07/14/2009 Influenza Virus Vaccine 04/30/2001, 04/22/2002, 03/21/2017, 04/04/2021 Influenza Whole 03/09/2014 Influenza, FLUARIX, FLULAVAL, FLUZONE (age 6 mo+) AND AFLURIA, (age 3 y+), PF, 0.5mL 03/26/2019 Influenza, FLUZONE (age 65 y+), High Dose, 0.7mL 03/21/2020 Influenza, Intradermal, Preservative free 03/10/2019 Influenza, Quadv, 6 mo and older, IM (Fluzone, Flulaval) 03/21/2017 Pneumococcal Conjugate Vaccine 05/21/2013 Pneumococcal Polysaccharide ([id number]) 03/26/2019 Tdap (Boostrix, Adacel) 02/01/2017 Zoster Recombinant (Shingrix) 01/13/2020 Active Problems: Patient Active Problem List Diagnosis Code Stress incontinence in female N39.3 OAB (overactive bladder) N32.81 Type 2 diabetes mellitus without complication ([facility]) E11.9 Acquired hypothyroidism E03.9 Simple chronic bronchitis ([facility]) J41.0 Migraine G43.909 Acoustic neuroma ([facility]) D33.3 H/O gastroesophageal reflux (GERD) Z87.19 Medication refill Z76.0 Asthma J45.909 Astigmatism H52.209 Attention deficit disorder with hyperactivity F90.9 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 Chronic obstructive lung disease ([facility]) J44.9 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 Dysphagia R13.10 Essential hypertension I10 Gastroesophageal reflux disease K21.9 Gingival and periodontal disease K05.6, K06.9 Hearing loss H91.90 Hyperlipidemia E78.5 Infantile cerebral palsy ([facility]) G80.9 Intractable migraine without aura G43.019 Low compliance bladder N31.8 Mental retardation F79 Mixed stress and urge urinary incontinence N39.46 Morbid obesity ([facility]) E66.01 Myopia H52.10 Nuclear sclerotic cataract H25.10 Obesity E66.9 Parasomnia G47.50 Polyneuropathy in diabetes ([facility]) E11.42 Pure hyperglyceridemia E78.1 Tobacco use disorder F17.200 Need for prophylactic vaccination and inoculation against varicella Z23 Family history of colon cancer Z80.0 Infected dental caries K02.9, K04.7 Megaloblastic anemia due to vitamin B12 deficiency D53.1 Acute bacterial sinusitis J01.90, B96.89 Encounter for smoking cessation counseling Z71.6 Cellulitis of right lower extremity L03.115 Deep vein thrombosis (DVT) of lower extremity ([facility]) I82.409 Leg swelling M79.89 Infestation by bed bug B88.8 Chronic pruritus L29.9 Failure to thrive in adult R62.7 Isolation/Infection: Isolation No Isolation Patient Infection Status Infection Onset Added Last Indicated Last Indicated By Review Planned Expiration Resolved Resolved By MDRO (multi-drug resistant organism) 06/21/19 06/21/19 Penny Whitfield RN E. Coli urine 06/2019 Resolved COVID-19 (Rule Out) 10/08/20 10/09/20 10/08/20 COVID-19 (Ordered) 10/09/20 Rule- Out Test Resulted COVID-19 (Rule Out) 03/07/20 03/08/20 03/07/20 Covid-19 Ambulatory (Ordered) 03/09/20 Rule-Out TestResulted COVID-19 (Rule Out) 11/27/19 11/27/19 11/27/19 Covid-19 Ambulatory (Ordered) 11/29/19 Rule-Out TestResulted Nurse Assessment: Last Vital Signs: BP 114/64 Pulse 55 Temp 97.4 F (36.3 C) Resp 18 Ht 5' 2 (1.575 m) Wt 245 lb 2.4 oz (111.2 kg) LMP 11/10/2013 SpO2 94% BMI 44.84 kg/m Last documented pain score (0-10 scale): Pain Level: 9 Last Weight: Wt Readings from Last 1 Encounters: 08/24/22 245 lb 2.4 oz (111.2 kg) Mental Status: oriented, alert, and developmentally delayed IV Access: - None Nursing Mobility/ADLs: Walking Independent Transfer Independent Bathing Independent Dressing Independent Toileting Independent Feeding Independent [employer] Driver Assisted Med Delivery whole Wound Care Documentation and Therapy: Incision 03/11/20 Mouth (Active) Number of days: 897 Elimination: Continence: Bowel: Yes Bladder: No intermittent incontinence, wears a brief Urinary Catheter: None Colostomy/Ileostomy/Ileal Conduit: No Date of Last BM: 09/03/2022 No intake or output data in the 24 hours ending 08/26/22 1053 No intake/output data recorded. Safety Concerns: At Risk for Falls Impairments/Disabilities: Developmentally delayed Nutrition Therapy: Current Nutrition Therapy: - Oral Diet: General Routes of Feeding: Oral Liquids: No Restrictions Daily Fluid Restriction: no Last Modified Barium Swallow with Video (Video Swallowing Test): not done Treatments at the Time of Hospital Discharge: Respiratory Treatments: budesonide-formoterol (SYMBICORT) 80-4.5 MCG/ACT inhaler 2 puff Dose 2 puff : Inhalation : 2 TIMES DAILY ipratropium-albuterol (DUONEB) nebulizer solution 3 mL Ordered Dose 1 vial : Admin Dose 3 mL : Nebulization : EVERY 6 HOURS PRN : Shortness of Breath Oxygen Therapy: is not on home oxygen therapy. Ventilator: - No ventilator support Rehab Therapies: Physical Therapy and Occupational Therapy Weight Bearing Status/Restrictions: No weight bearing restrictions Other Medical Equipment (for information only, NOT a DME order): bath bench Other Treatments: NA Patient's personal belongings (please select all that are sent with patient): Glasses RN SIGNATURE: CASE MANAGEMENT/SOCIAL WORK SECTION Inpatient Status Date: Readmission Risk Assessment Score: Readmission Risk Risk of Unplanned Readmission: 0 Discharging to Facility/ Agency Name: [facility] Address: Phone: Fax: Dialysis Facility (if applicable) Name: Address: Dialysis Schedule: Phone: Fax: Automatic Print Developer/Mattress Packer signature: PHYSICIAN SECTION Prognosis: Good Condition at Discharge: Stable Rehab Potential (if transferring to Rehab): Fair Recommended Labs or Other Treatments After Discharge: Physician Certification: I certify the above information and transfer of Bharat Manzanares is necessary for the continuing treatment of the diagnosis listed and that she requires Assisted Facility for greater 30 days. Update Admission H&P: No change in H&P PHYSICIAN SIGNATURE: documented in this encounterBON Cloud Floor Phone: [phone] History of Present illness Narrative* BRIDGETTE MADRID - 08/23/2022 11:24 AM EDT Physical Therapy Facility/Department: [facility] RENAL//MED SURG Daily Treatment Note Name: Bharat Manzanares : 1965 Date of Service: 08/23/2022 Discharge Recommendations: Patient would benefit from continued therapy after discharge PT Equipment Recommendations Equipment Needed: No Patient Diagnosis(es): The primary encounter diagnosis was Leg swelling. A diagnosis of Elevated d-dimer was also pertinent to this visit. Past Medical History: has a past medical history of Acoustic neuroma ([facility]), Allergic rhinitis, Asthma, Astigmatism, Attention deficit disorder with hyperactivity, Cerebral palsy ([facility]), CHF (congestive heart failure) ([facility]), COPD (chronic obstructive pulmonary disease) ([facility]), Dental caries, Developmental academic disorder, Diarrhea, Dysphagia, GERD (gastroesophageal reflux disease), Gingival and periodontal disease, Hearing loss, Hordeolum externum of left lower eyelid, Hyperglycemia, Hyperlipidemia, Hypertension, Hypoglycemia, Hypothyroidism, Infantile cerebral palsy ([facility]), Intractable migraine without aura, Irregular heartbeat, Irregular heartbeat, Learning disability, Low compliance bladder, Mental retardation, Migraine, Mixed stress and urge urinary incontinence, Morbid obesity ([facility]), Myopia, Neuropathy, Nicotine dependence, cigarettes, with other nicotine-induced disorders, Nuclear sclerotic cataract, OAB (overactive bladder), Osteoarthritis, Overactive bladder, Parasomnia, Polyneuropathy in diabetes ([facility]), Poor dentition, Simple chronic bronchitis ([facility]), Stress incontinence in female, Thyroid disease, Tobacco abuse, Type 2 diabetes mellitus ([facility]), Urinary incontinence, and Wears glasses. Past Surgical History: has a past surgical history that includes Upper gastrointestinal endoscopy (12/01/2019); Endoscopy, colon, diagnostic; Dental surgery (03/11/2020); and Dental surgery (N/A, 03/11/2020). Assessment Body Structures, Functions, Activity Limitations Requiring Skilled Therapeutic Intervention: Decreased functional mobility ;Decreased strength;Decreased endurance;Increased pain Assessment: Pt ambulated 100 ft without AD SBA. She reported increased pain in her R LE and was mildly unsteady. She could benefit from a continuation of PT for gait and strengthening following her DC Therapy Prognosis: Good Activity Tolerance Activity Tolerance: Patient tolerated treatment well Plan Physcial Therapy Plan General Plan: (5-6x/wk) Current Treatment Recommendations: Strengthening, Functional mobility training, Transfer training, Endurance training, Stair training, Gait training, Safety education & training Safety Devices Type of Devices: Nurse notified, Call light within reach Restraints Restraints Initially in Place: No Restrictions Restrictions/Precautions Restrictions/Precautions: Contact Precautions Required Braces or Orthoses?: No Position Activity Restriction Other position/activity restrictions: Up with assist Subjective General Chart Reviewed: Yes Response To Previous Treatment: Patient with no complaints from previous session. Family / Caregiver Present: No General Comment Comments: Pt retired to recliner with call light. RN notified. Subjective Subjective: Pt and RN agreeable to PT. Pt in bed upon arrival. Pt having 7/10 pain in R LE. Pt pleasant and cooperative t/o. Vision/Hearing Vision Vision: Impaired Vision Exceptions: Wears glasses at all times Cognition Orientation Overall Orientation Status: Within Functional Limits Cognition Overall Cognitive Status: Exceptions Arousal/Alertness: Appropriate responses to stimuli Following Commands: Follows multistep commands with increased time;Follows one step commands consistently Attention Span: Attends with cues to redirect;Difficulty dividing attention Memory: Appears intact Safety Judgement: Decreased awareness of need for safety Problem Solving: Assistance required to correct errors made;Assistance required to generate solutions Insights: Decreased awareness of deficits Initiation: Requires cues for some Sequencing: Requires cues for some Objective Bed mobility Supine to Sit: Supervision Sit to Supine: Unable to assess (Pt retired to recliner.) Scooting: Supervision Bed Mobility Comments: Assessed with HOB ~55 degrees. Transfers Sit to Stand: Stand by assistance Stand to Sit: Stand by assistance Comment: assessed without AD Ambulation Surface: Level tile Device: No Device Assistance: Stand by assistance Gait Deviations: Increased EDGARDO;Decreased step length;Decreased step height Distance: 100 ft Balance Posture: Good Sitting - Static: Good Sitting - Dynamic: Good Standing - Static: Fair;+ Standing - Dynamic: Fair Comments: assessed without AD Exercise Treatment: Seated LE exercise program: Long Arc Quads, hip abduction/adduction, heel/toe raises, and marches. Reps: 20 OutComes Score -[facility] Score -[facility] Inpatient Mobility Raw Score : 20 (08/23/22 111) -[facility] Inpatient T-Scale Score : 47.67 (08/23/22 111) Mobility Inpatient CMS 0-100% Score: 35.83 (08/23/22 111) Mobility Inpatient CMS G-Code Modifier : CJ (08/23/221118) Goals Short Term Goals Time Frame for Short Term Goals: 10 visits Short Term Goal 1: transfers with SBA Short Term Goal 2: amb 150 ft with appropriate device x SBA Short Term Goal 3: ascend/descend 4 steps with SBA Short Term Goal 4: 20 min strengthening exercise program x SBA Education Patient Education Education Given To: Patient Education Provided: Role of Therapy;Plan of Care Education Method: Verbal Barriers to Learning: None Education Outcome: Verbalized understanding;Demonstrated understanding;Continued education needed Therapy Time Individual Concurrent Group Co-treatment Time In 1055 Time Out 1124 Minutes 29 Timed Code Treatment Minutes: 18 Minutes BRIDGETTE MADRID PTA * Eduard Yanes DO - 08/23/2022 10:00 AM EDT Images from the original note were not included. [facility] Office: [phone] Justin Egan DO, Papi Leon DO, Willie Bocanegra DO, Mahesh Ruth DO, Tuan Bush MD, Lalitha Odell MD, Angela Woodard MD, Cady Tran MD, Eliazar Howard MD, Mary White MD, Eduard Yanes DO, Cyndi Driver MD, Miguel A Ellison DO, Dana Hernandez MD, Bang Munoz MD, Paulino Egan DO, Jennifer Minor MD, Carlos Segal MD, José Miguel Sepulveda DO, Aleisha De Dios MD, Arlene Camacho MD, Silvia Estrada MD, Karen Chand MD, Maria G Nguyễn MD, Oli Houston DO, Randy Israel MD, Chemo Morris MD, Milagro Anderson CNP, Brenda Ratliff CNP, Juju Monge CNP, Devin Mckenna CNP, Tonia Rhodes DNP, Anne Casillas CNP, Lois Wiggins CNP, Sangita Barrera CNP, Radha Purdy CNP, Trudy Velasco CNP, Alfred Sapp PA-C, Tatum Garrido, RUBI, Samantha Williamson CNP, Zulema Carias CNP [facility] IN-PATIENT SERVICE [facility] Progress Note 08/23/2022 10:00 AM Name: Bharat Manzanares Acct: [id number] Room: IP Day: 2 Admit Date: 08/20/2022 11:04 PM PCP: Brice Mcfarland APRN Code Status: Full Code Subjective: C/C: Chief Complaint Patient presents with Knee Pain Interval History Status: not changed. Patient states her right lower extremity is improving with swelling. Patient was started on antibiotics yesterday, spoke with infectious disease recommending outpatient oral antibiotics. They are recommend follow-up with podiatry, Augmentin for 7 days Brief History: Bharat Manzanares is a 57 y.o. female who presents to our hospital for evaluation right leg pain, and redness along with bilateral lower extremity swelling and joing pain with stiffness. Pain has beengradually worsening over the last couple of days. She usually takes tylenol for pain. She has a history of congestive hear failure and she follows with [facility] service technician but has not seen them in four or five years. She sees [facility] now. She takes lasix 20 mg once daily and says she has a good response to it. She says she feels like shes retaining more fluid. She cannot lay flat due to shortness of breath. She has bed bugs at home so she does not have anywhere to sleep. She does have a history of blood clots in lower extremity but has been off of it for the last two years. Review of Systems: Constitutional: negative for chills, fevers, sweats Respiratory: negative for cough, dyspnea on exertion, shortness of breath, wheezing Cardiovascular: negative for chest pain, chest pressure/discomfort, lower extremity edema, palpitations Gastrointestinal: negative for abdominal pain, constipation, diarrhea, nausea, vomiting Neurological: negative for dizziness, headache Medications: Allergies: Allergies Allergen Reactions Dust Mite Mixed Allergen Ext [Mite (D. Farinae)] Histamine Phosphate Current Meds: Scheduled Meds: budesonide-formoterol 2 puff Inhalation BID atorvastatin 40 mg Oral Nightly buPROPion 150 mg Oral QAM divalproex 250 mg Oral BID levothyroxine 200 mcg Oral Daily oxybutynin 10 mg Oral Nightly pantoprazole 40 mg Oral Daily furosemide 40 mg Oral Daily Hydrocerin Topical BID amoxicillin-clavulanate 1 tablet Oral 3 times per day sodium chloride flush 5-40 mL IntraVENous 2 times per day apixaban 10 mg Oral BID Followed by [START ON 08/28/2022] apixaban 5 mg Oral BID metFORMIN 500 mg Oral BID nicotine 1 patch TransDERmal Daily Continuous Infusions: sodium chloride dextrose PRN Meds: sodium chloride flush, sodium chloride, potassium chloride OR potassium alternative oral replacement OR potassium chloride, magnesium sulfate, ondansetron OR ondansetron, polyethylene glycol, acetaminophen OR acetaminophen, ipratropium-albuterol, glucose, dextrose bolus OR dextrose bolus, glucagon (rDNA), dextrose, calcium carbonate Data: Past Medical History: has a past medical history of Acoustic neuroma ([facility]), Allergic rhinitis, Asthma, Astigmatism, Attention deficit disorder with hyperactivity, Cerebral palsy ([facility]), CHF (congestive heart failure) ([facility]), COPD (chronic obstructive pulmonary disease) ([facility]), Dental caries, Developmental academic disorder, Diarrhea, Dysphagia, GERD (gastroesophageal reflux disease), Gingival and periodontal disease, Hearing loss, Hordeolum externum of left lower eyelid, Hyperglycemia, Hyperlipidemia, Hypertension, Hypoglycemia, Hypothyroidism, Infantile cerebral palsy ([facility]), Intractable migraine without aura, Irregular heartbeat, Irregular heartbeat, Learning disability, Low compliance bladder, Mental retardation, Migraine, Mixed stress and urge urinary incontinence, Morbid obesity ([facility]), Myopia, Neuropathy, Nicotine dependence, cigarettes, with other nicotine-induced disorders, Nuclear sclerotic cataract, OAB (overactive bladder), Osteoarthritis, Overactive bladder, Parasomnia, Polyneuropathy in diabetes ([facility]), Poor dentition, Simple chronic bronchitis ([facility]), Stress incontinence in female, Thyroid disease, Tobacco abuse, Type 2 diabetes mellitus ([facility]), Urinary incontinence, and Wears glasses. Social History: reports that she has been smoking cigarettes. She has a 40.00 pack-year smoking history. She has never used smokeless tobacco. She reports that she does not drink alcohol and does notuse drugs. Family History: Family History Problem Relation Age of Onset Stroke Paternal Grandmother Cancer Paternal Grandfather Vitals: BP 104/62 Pulse 70 Temp 98.2 F (36.8 C) (Oral) Resp 16 Ht 5' 2 (1.575 m) Wt 255 lb 9 oz (115.9 kg) LMP 11/10/2013 SpO2 93% BMI 46.74 kg/m Temp (24hrs), Av.2 F (36.8 C), Min:98.1 F (36.7 C), Max:98.2 F (36.8 C) Recent Labs 08/22/22 0739 08/22/22 1125 08/22/22 1649 08/23/22 0806 POCGLU 174* 207* 190* 194* I/O (24Hr): No intake or output data in the 24 hours ending 08/23/22 1000 Labs: Hematology: Recent Labs 08/21/22 0023 08/22/22 0554 08/23/22 0538 WBC 12.1* -- 14.0* RBC 5.20* -- 4.55 HGB 13.0 -- 11.7* HCT 43.1 -- 37.9 MCV 82.9 -- 83.3 MCH 25.0* -- 25.7 MCHC 30.2 -- 30.9 RDW 16.3* -- 16.8* PLT 274 -- 405 MPV 9.6 -- 10.5 CRP -- 47.2* -- DDIMER 2.70 -- -- Chemistry: Recent Labs 08/21/22 0144 08/21/22 0634 08/22/22 0554 08/23/22 0538 NA -- 137 137 133* K -- 3.8 4.2 4.3 CL -- 100 99 96* CO2 -- 28 26 26 GLUCOSE -- 153* 174* 190* BUN -- 22* 24* 23* CREATININE -- 0.71 0.94* 0.85 MG -- -- -- 1.7 ANIONGAP -- 9 12 11 LABGLOM -- >60 >60 >60 CALCIUM -- 8.6 9.1 9.0 PHOS -- -- -- 3.9 LACTACIDWB 1.0 -- -- -- Recent Labs 08/21/22 1608 08/21/22 1945 08/22/22 0739 08/22/22 1125 08/22/22 1649 08/23/22 0538 08/23/22 0806 LABALBU -- -- -- -- -- 3.5 -- POCGLU 213* 238* 174* 207* 190* -- 194* ABG: Lab Results Component Value Date/Time PHART 7.414 06/13/2017 01:05 PM RKQ6AEN 44.1 06/13/2017 01:05 PM PO2ART 68.0 06/13/2017 01:05 PM FGV2TLF 27.7 06/13/2017 01:05 PM NBEA NOT REPORTED 06/13/2017 01:05 PM PBEA 3.1 06/13/2017 01:05 PM [id number] 95.6 06/13/2017 01:05 PM FIO2 ROOM AIR 06/13/2017 01:05 PM Lab Results Component Value Date/Time SPECIAL NOT REPORTED 01/27/2021 02:25 PM Lab Results Component Value Date/Time CULTURE ESCHERICHIA COLI 10 to 50,000 CFU/ML (A) 03/27/2022 06:15 PM Radiology: XR FEMUR RIGHT (MIN 2 VIEWS) Result Date: 08/21/2022 Soft tissue swelling within the right lower extremity. No definite acute osseous abnormality in right femur or right tibia/fibula. Although the right hip is not well visualized due to body habitus and overlying soft tissue. XR TIBIA FIBULA RIGHT (2 VIEWS) Result Date: 08/21/2022 Soft tissue swelling within the right lower extremity. No definite acute osseous abnormality in right femur or right tibia/fibula. Although the right hip is not well visualized due to body habitus and overlying soft tissue. Physical Examination: General appearance: alert, cooperative and no distress Mental Status: oriented to person, place and time and normal affect Lungs: clear to auscultation bilaterally, normal effort Heart: regular rate and rhythm, no murmur Abdomen: soft, nontender, nondistended, normal bowel sounds, no masses, hepatomegaly, splenomegaly Extremities: 1+ edema with erythema, tenderness of the right lower extremity Skin: no gross lesions, rashes, induration Assessment: Hospital Problems Last Modified POA * (Principal) Cellulitis of right lower extremity 08/21/2022 Yes Deep vein thrombosis (DVT) of lower extremity (HCC) 08/21/2022 Yes Leg swelling 08/22/2022 Yes Infestation by bed bug 08/22/2022 Yes Chronic pruritus 08/22/2022 Yes OAB (overactive bladder) 08/21/2022 Yes Type 2 diabetes mellitus without complication (HCC) 08/21/2022 Yes Acquired hypothyroidism 08/21/2022 Yes Hyperlipidemia 08/21/2022 Yes Morbid obesity (HCC) 08/21/2022 Yes Plan: Cellulitis of the right lower extremity Infectious disease recommending 7 days of Augmentin 3 times daily, outpatient follow-up with podiatry Improving, otherwise stable for discharge DVT of the right lower extremity Continue Eliquis for 6 months Overactive bladder Continue oxybutynin Bedbug infestation Nursing notified, contact precaution Type 2 diabetes Continue home medications Schizoaffective disorder On Depakote, Invega injections and Wellbutrin Morbid obesity Hypothyroidism Patient otherwise medically stable for discharge, patient only able to ambulate 35 feet with assistance, she lives alone and may benefit from rehab placement, patient seems interested and case management is arranging. Eduard Yanes DO 08/23/2022 10:00 AM * Nakul Green MD - 08/23/2022 9:04 AM EDT Images from the original note were not included. [facility] - Initial Consult Note Today's Date and Time: 08/23/2022, 9:04 AM Impression : Concern for right foot cellulitis Physical exam suggest very mild third toe inflammation Recent hx right middle toe ingrown toenail Acute RLE DVT DM II HTN Bed bug bite Infantile cerebral palsy Schizoaffective disorder CHF Obesity Recommendations: Discontinue IV vancomycin and rocephin Start : Augmentin PO TID x 7 days Eucerin cream to BLE and feet for scratches and dry skin Stop scratching- Bed bug infestation at home needs to be addressed Diuresis for fluid removal Follow-up with podiatry as outpatient for routine foot care No need to follow up with ID as an outpatient unless she has further issues s/p discharge Medical Decision Making/Summary/Discussion:08/23/2022 Infection Control Recommendations [place] Precautions Contact-Hx MRDO UTI Antimicrobial Stewardship Recommendations Simplification of therapy Targeted therapy IV to oral conversion Coordination of Outpatient Care: Estimated Length of IV antimicrobials:NA Patient will need Midline Catheter Insertion: No Patient will need PICC line Insertion:No Patient will need: Home IV , Infusion Center, SNF, LTAC: No Patient will need outpatient wound care:No Chief complaint/reason for consultation: RLE cellulitis History of Present Illness: Bharta Manzanares is a 57 y.o.-year-old female who was initially admitted on 08/20/2022. Patient seenat the request of Dr. Yanes INITIAL HISTORY: This patient presented to the ED on 08/20/2022 with complaints of right lower extremity pain x3 daysas well as right middle toe infection. She had been on PO Doxycycline that was ordered by her PCP with no improvement, and had presented to [facility] on the , but was discharged the next day. The patient is now complaining of right medial calf pain, and she has a history of right upper extremity DVT for which she used to take Eliquis. The patient said she had an ingrown toenail on the right third toe and that she had not had her toenails clipped for over a year, until last when she went to a community resource consultant. The patient said her toe was infected for a long time, and the ingrown toenail fell off before , when she saw the community resource consultant. The community resource consultant ordered a different PO antibiotic last , but it was not picked up. The patient also has bedbugs at home, and has scratches all over her legs in different stages of healing. She said she has been putting hydrogen peroxide on her toe and legs. A venous duplex at [facility] showed acute right saphenous DVT for which she was started back on Eliquis. She is receiving Lasix for CHF and BLE edema. IV Rocephin and vancomycin were initiated. ID was consulted for antibiotic recommendations. Radiology: XR FEMUR RIGHT (MIN 2 VIEWS) Result Date: 08/21/2022 Soft tissue swelling within the right lower extremity. No definite acute osseous abnormality in right femur or right tibia/fibula. Although the right hip is not well visualized due to body habitus and overlying soft tissue. XR TIBIA FIBULA RIGHT (2 VIEWS) Result Date: 08/21/2022 Soft tissue swelling within the right lower extremity. No definite acute osseous abnormality in right femur or right tibia/fibula. Although the right hip is not well visualized due to body habitus and overlying soft tissue. Right foot FINDINGS 08/18/22: No acute fracture or dislocation. Degenerative changes of the midfoot and forefoot with joint spaceloss and subchondral sclerosis. Robust dorsal soft tissue swelling. No definitive/unequivocal soft tissue emphysema at the distal second digit. Plantar enthesopathy. CURRENT EVALUATION 08/23/2022 BP 104/62 Pulse 72 Temp 98.2 F (36.8 C) (Oral) Resp 16 Ht 5' 2 (1.575 m) Wt 255 lb 9 oz (115.9 kg) LMP 11/10/2013 SpO2 91% BMI 46.74 kg/m Afebrile VS stable on room air The patient is alert and oriented. She is feeling better today. No new complaints. There is some BLE edema and her R middle toe is pink and tender to touch. She has scratches on BLE Medications reviewed: Currently on PO Augmentin q8h Discussed with RN Labs, X rays reviewed: 08/23/2022 BUN: 24-->23 Cr: 0.94-->0.85 WBC: 12.1-->14.0 Hb: 13.0-->11.7 Plat: 274-->405 CRP: 47.2 Cultures: Urine: Blood: Sputum : Wound: MRSA Nares: Imaging: Right foot 08/22/22 08/21/22 right femur & right knee I have personally reviewed the past medical history, past surgical history, medications, social history, and family history, and I have updated the database accordingly. Past Medical History: Past Medical History: Diagnosis Date Acoustic neuroma ([facility]) 11/28/2015 Overview: acoustic neuroma Onset Date: Jun 29, 2013 Allergic rhinitis Asthma Uncomplicated asthma Astigmatism 04/30/2016 Attention deficit disorder with hyperactivity 03/03/2018 Cerebral palsy ([facility]) CHF (congestive heart failure) ([facility]) Seen at [facility] Dr. 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 Diarrhea Dysphagia 07/09/2013 GERD (gastroesophageal reflux disease) Gingival and periodontal disease 07/09/2013 Hearing loss Hordeolum externum of left lower eyelid 05/03/2017 Hyperglycemia Hyperlipidemia Hypertension Hypoglycemia Hypothyroidism acquired Infantile cerebral palsy (HCC) 07/09/2013 Overview: updated for 03/25 reg imo load Intractable migraine without aura 09/30/2001 Overview: updated for 03/25 reg imo load Irregular heartbeat Irregular heartbeat Learning disability Low compliance bladder 07/09/2013 Mental retardation 03/03/2018 Migraine Mixed stress and urge urinary incontinence 03/03/2018 Morbid obesity (HCC) 07/09/2013 Myopia 04/30/2016 Neuropathy Nicotine dependence, cigarettes, with other nicotine-induced disorders Nuclear sclerotic cataract 04/30/2016 OAB (overactive bladder) 07/12/2015 Osteoarthritis Overactive bladder Parasomnia 07/09/2013 Polyneuropathy in diabetes (HCC) 10/21/2002 Poor dentition Simple chronic bronchitis (HCC) 07/12/2015 Stress incontinence in female 07/12/2015 Thyroid disease Tobacco abuse Type 2 diabetes mellitus ([facility]) Urinary incontinence 07/09/2013 Wears glasses Past Surgical History: Past Surgical History: Procedure Laterality Date DENTAL SURGERY 03/11/2020 extractions x4 DENTAL SURGERY N/A 03/11/2020 SURGICAL EXTRACTION OF TEETH 1, 2, 14, 16 performed by Mitch Mccall DDS at [facility] OR ENDOSCOPY, COLON, DIAGNOSTIC UPPER GASTROINTESTINAL ENDOSCOPY 12/01/2019 EGD BIOPSY performed by Olga Zeng MD at [facility] OR Medications: budesonide-formoterol 2 puff Inhalation BID atorvastatin 40 mg Oral Nightly buPROPion 150 mg Oral QAM divalproex 250 mg Oral BID levothyroxine 200 mcg Oral Daily oxybutynin 10 mg Oral Nightly pantoprazole 40 mg Oral Daily furosemide 40 mg Oral Daily Hydrocerin Topical BID amoxicillin-clavulanate 1 tablet Oral 3 times per day sodium chloride flush 5-40 mL IntraVENous 2 times per day apixaban 10 mg Oral BID Followed by [START ON 08/28/2022] apixaban 5 mg Oral BID metFORMIN 500 mg Oral BID WC nicotine 1 patch TransDERmal Daily Social History: Social History Socioeconomic History Marital status: Single Spouse name: Not on file Number of children: Not on file Years of education: Not on file Highest education level: Not on file Occupational History Not on file Tobacco Use Smoking status: Every Day Packs/day: 1.00 Years: 40.00 Pack years: 40.00 Types: Cigarettes Last attempt to quit: 09/15/2020 Years since quittin.9 Smokeless tobacco: Never Tobacco comments: smokes occassionally Vaping Use Vaping Use: Never used Substance and Sexual Activity Alcohol use: No Alcohol/week: 0.0 standard drinks Drug use: No Sexual activity: Not on file Other Topics Concern Not on file Social History Narrative Not on file Social Determinants of Health Financial Resource Strain: Not on file Food Insecurity: Not on file Transportation Needs: Not on file Physical Activity: Not on file Stress: Not on file Social Connections: Not on file Intimate Partner Violence: Not on file Housing Stability: Not on file Family History: Family History Problem Relation Age of Onset Stroke Paternal Grandmother Cancer Paternal Grandfather Allergies: Dust mite mixed allergen ext [mite (d. farinae)] and Histamine phosphate Review of Systems: Constitutional: No fevers or chills. No systemic complaints Head: No headaches Eyes: No double vision or blurry vision. No conjunctival inflammation. ENT: No sore throat or runny nose.. No hearing loss, tinnitus or vertigo. Cardiovascular: No chest pain or palpitations.No shortness of breath. No COHN Lung: No shortness of breath or cough. No sputum production Abdomen: No nausea, vomiting, diarrhea, or abdominal pain.. No cramps. Genitourinary: No increased urinary frequency, or dysuria. No hematuria. No suprapubic or CVA pain Musculoskeletal: No muscle aches or pains. Right middle toe tenderness Hematologic: No bleeding or bruising. Neurologic: No headache, weakness, numbness, or tingling. Integument: scratches BLE from bed bugs. Dry, flaky skin. Right middle toe pink Psychiatric: No depression. Endocrine: No polyuria, no polydipsia, no polyphagia. Physical Examination : Patient Vitals for the past 8 hrs: BP Temp Temp src Pulse Resp SpO2 Weight 08/23/22 0800 104/62 98.2 F (36.8 C) Oral 72 16 91 % -- 08/23/22 0600 -- -- -- -- -- -- 255 lb 9 oz (115.9 kg) General Appearance: Awake, alert, and in no apparent distress Head: Normocephalic, no trauma Eyes: Pupils equal, round, reactive to light and accommodation; extraocular movements intact; sclera anicteric; conjunctivae pink. No embolic phenomena. ENT: Oropharynx clear, without erythema, exudate, or thrush. No tenderness of sinuses. Mouth/throat: mucosa pink and moist. No lesions. Dentition in good repair. Neck:Supple, without lymphadenopathy. Thyroid normal, No bruits. Pulmonary/Chest: Clear to auscultation, without wheezes, rales, or rhonchi. No dullness to percussion. Cardiovascular: Regular rate and rhythm without murmurs, rubs, or gallops. Abdomen: Soft, non tender. Bowel sounds normal. No organomegaly All four Extremities: No cyanosis, clubbing, or effusions. BLE scratches and edema. Right middle toe pink with dry skin Neurologic: No gross sensory or motor deficits. Skin: Warm and dry and flaky. Scratches BLE from bed bugs Medical Decision Making -Laboratory: I have independently reviewed/ordered the following labs: CBC with Differential: Recent Labs 08/21/22 0023 08/23/22 0538 WBC 12.1* 14.0* HGB 13.0 11.7* HCT 43.1 37.9 PLT 274 405 LYMPHOPCT 15* -- MONOPCT 4 -- BMP: Recent Labs 08/22/22 0554 08/23/22 0538 NA 137 133* K 4.2 4.3 CL 99 96* CO2 26 26 BUN 24* 23* CREATININE 0.94* 0.85 MG -- 1.7 Hepatic Function Panel: Recent Labs 08/23/22 0538 LABALBU 3.5 No results for input(s): RPR in the last 72 hours. No results for input(s): HIV in the last 72 hours. No results for input(s): BC in the last 72 hours. Lab Results Component Value Date/Time RBC 4.55 08/23/2022 05:38 AM RBC 4.78 10/22/2011 06:29 AM WBC 14.0 08/23/2022 05:38 AM TURBIDITY Clear 03/27/2022 06:25 PM Lab Results Component Value Date/Time CREATININE 0.85 08/23/2022 05:38 AM GLUCOSE 190 08/23/2022 05:38 AM GLUCOSE 392 10/22/2011 10:33 AM Medical Decision Making-Imaging: Narrative EXAMINATION: 2 XRAY VIEWS OF THE RIGHT FEMUR; 2 XRAY VIEWS OF THE RIGHT TIBIA AND FIBULA 08/21/2022 1:10 am COMPARISON: Right knee 08/30/2021 HISTORY: ORDERING SYSTEM PROVIDED HISTORY: right medial thigh pain, soft tissue infection TECHNOLOGIST PROVIDED HISTORY: right medial thigh pain, soft tissue infection Reason for Exam: leg redness,pain; ORDERING SYSTEM PROVIDED HISTORY: Medial calf pain, soft tissue infection vs edema TECHNOLOGIST PROVIDED HISTORY: Medial calf pain, soft tissue infection vs edema Reason for Exam: leg redness,pain behind calf FINDINGS: Right femur: Right hip is suboptimally visualized due to body habitus and overlying soft tissue. No definite acute fracture or dislocation. Soft tissues are otherwise unremarkable. Right tibia/fibula: Soft tissue swelling. Degenerative changes of the right knee. No acute fracture or dislocation. Joint spaces and alignment otherwise maintained. Impression Soft tissue swelling within the right lower extremity. No definite acute osseous abnormality in right femur or right tibia/fibula. Although the right hip is not well visualized due to body habitus and overlying soft tissue. Medical Decision [id number]: Medical Decision Making-Other: Note: Labs, medications, radiologic studies were reviewed with personal review of films Large amounts of data were reviewed Discussed with nursing Staff, order planner Infection Control and Prevention measures reviewed All prior entries were reviewed Administer medications as ordered Prognosis: Good Discharge planning reviewed Thank you for allowing us to participate in the care of this patient. Please call with questions. Jet Solorio MD ATTESTATION: I have discussed the case, including pertinent history and exam findings with the residents and students. I have seen and examined the patient and the ramsey elements of the encounter have been performed by me. I was present when the student obtained his information or examined the patient. I have reviewed the laboratory data, other diagnostic studies and discussed them with the residents. I have updated the medical record where necessary. I agree with the assessment, plan and orders as documented by the resident/ student. Nakul Green MD. Pager: - Office: * Vance Sandoval OT - 08/22/2022 5:18 PM EDT Occupational Therapy Facility/Department: [facility] RENAL//MED SURG Occupational Therapy Initial Assessment Name: Bharat Manzanares : 1965 Date of Service: 08/22/2022 Discharge Recommendations: Patient would benefit from continued therapy after discharge OT Equipment Recommendations Equipment Needed: Yes Mobility Devices: ADL Assistive Devices ADL Assistive Devices: Sock-Aid Hard;Wash Mill Operator;Long-handled Shoe Horn;Long-handled Sponge Patient Diagnosis(es): The primary encounter diagnosis was Leg swelling. A diagnosis of Elevated d-dimer was also pertinent to this visit. Past Medical History: has a past medical history of Acoustic neuroma ([facility]), Allergic rhinitis, Asthma, Astigmatism, Attention deficit disorder with hyperactivity, Cerebral palsy ([facility]), CHF (congestive heart failure) ([facility]), COPD (chronic obstructive pulmonary disease) ([facility]), Dental caries, Developmental academic disorder, Diarrhea, Dysphagia, GERD (gastroesophageal reflux disease), Gingival and periodontal disease, Hearing loss, Hordeolum externum of left lower eyelid, Hyperglycemia, Hyperlipidemia, Hypertension, Hypoglycemia, Hypothyroidism, Infantile cerebral palsy ([facility]), Intractable migraine without aura, Irregular heartbeat, Irregular heartbeat, Learning disability, Low compliance bladder, Mental retardation, Migraine, Mixed stress and urge urinary incontinence, Morbid obesity ([facility]), Myopia, Neuropathy, Nicotine dependence, cigarettes, with other nicotine-induced disorders, Nuclear sclerotic cataract, OAB (overactive bladder), Osteoarthritis, Overactive bladder, Parasomnia, Polyneuropathy in diabetes ([facility]), Poor dentition, Simple chronic bronchitis ([facility]), Stress incontinence in female, Thyroid disease, Tobacco abuse, Type 2 diabetes mellitus ([facility]), Urinary incontinence, and Wears glasses. Past Surgical History: has a past surgical history that includes Upper gastrointestinal endoscopy (12/01/2019); Endoscopy, colon, diagnostic; Dental surgery (03/11/2020); and Dental surgery (N/A, 03/11/2020). Chief Complaint Patient presents with Knee Pain Assessment Performance deficits / Impairments: Decreased functional mobility ;Decreased ADL status;Decreased endurance;Decreased high-level IADLs;Decreased balance;Decreased safe awareness;Decreased cognition Assessment: Pt limited by decreased balance, endurance and cognition. Pt is expected to require skilled OT services during their acute hospitalization stay to address the above noted deficits throughskilled occupational therapy intervention for promotion of increased independence throughout ADLs, IADLs and functional mobility tasks. Prognosis: Good Decision Making: Medium Complexity REQUIRES OT FOLLOW-UP: Yes Activity Tolerance Activity Tolerance: Patient Tolerated treatment well Plan Occupational Therapy Plan Times Per Week: 2-3x/wk Current Treatment Recommendations: Balance training, Functional mobility training, Endurance training, Safety education & training, Patient/Caregiver education & training, Equipment evaluation, education, & procurement, Self-Care / ADL, Home management training Restrictions Restrictions/Precautions Restrictions/Precautions: Contact Precautions Required Braces or Orthoses?: No Position Activity Restriction Other position/activity restrictions: Up with assist Subjective General Patient assessed for rehabilitation services?: Yes Family / Caregiver Present: No General Comment Comments: RN ok'd for OT/PT eval this AM. Pt agreeable to session, pleasent/cooperative throughout.Pt denies any pain. Pt very chatty throughout session, at times requiring cues for redirection. Social/Functional History Social/Functional History Lives With: Alone Type of Home: Apartment Home Layout: One level Home Access: Elevator Bathroom Shower/Tub: Walk-in shower Bathroom Toilet: Standard Bathroom Equipment: Grab bars in shower, Shower chair, Grab bars around toilet Home Equipment: Rollator ADL Assistance: Independent Homemaking Assistance: Independent Homemaking Responsibilities: Yes Ambulation Assistance: Independent Transfer Assistance: Independent Active Extractor Loader And Unloader: No Patient's Extractor Loader And Unloader Info: TARPS or cab Occupation: On disability Leisure & Hobbies: watch tv Objective Safety Devices Type of Devices: Nurse notified;Left in bed;Call light within reach;Gait belt Restraints Restraints Initially in Place: No Balance Sitting: Intact (Pt EOB unsupported edge of bed with SUP to engage in eval questions. ~10 minutes.) Standing: With support (Pt stood statically for ~2 minutes with CGA and no AD. Mildly unsteady, likely would benefit from trying with RW.) Gait Overall Level of Assistance: Contact-guard assistance;Additional time;Assist X1 (Completed mobilityto/from bathroom, reaching for wall/funiture for external support. No AD utilized, but pt likely would benefit from using AD. Pt declined to try today.) Toilet Transfers Toilet - Technique: Ambulating Equipment Used: Standard toilet Toilet Transfer: Contact guard assistance Toilet Transfers Comments: Required encouragement to complete. Pt very fixated on being incontinentand that pt does not always get on/off the toilet. Pt did report at times using toilet and asked tosimulate to evlauate if pt requires significant assistance to complete this task. After explanation, pt willing to attempt. No LOB, mildly unsteadiness. AROM: Within functional limits Strength: Within functional limits (BUE grossly 4+/5) Coordination: Within functional limits Tone: Normal Sensation: Intact (Pt denies any numbness/tingling) ADL Feeding: Modified independent ;Setup Grooming: Modified independent ;Setup UE Bathing: Modified independent ;Setup;Increased time to complete LE Bathing: Minimal assistance;Verbal cueing;Increased time to complete;Setup UE Dressing: Modified independent ;Setup;Increased time to complete LE Dressing: Minimal assistance;Verbal cueing;Setup;Increased time to complete LE Dressing Skilled Clinical Factors: Pt donned socks seated EOB with Min A to thread sock over R toes d/t decreased functional reach and discomfort. Toileting: Increased time to complete;Contact guard assistance Toileting Skilled Clinical Factors: complted toilet transfer with CGA and use of grab bars Activity Tolerance Activity Tolerance: Patient limited by fatigue;Patient limited by endurance;Patient limited by pain Bed mobility Supine to Sit: Contact guard assistance Sit to Supine: Contact guard assistance Scooting: Contact guard assistance Bed Mobility Comments: HOB elevated Transfers Sit to stand: Contact guard assistance Stand to sit: Contact guard assistance Transfer Comments: No AD utilized Vision Vision: Impaired Vision Exceptions: Wears glasses at all times Hearing Hearing: Exceptions to WFL Hearing Exceptions: Hard of hearing/hearing concerns (in process of getting hearing aide) Cognition Overall Cognitive Status: Exceptions Arousal/Alertness: Appropriate responses to stimuli Following Commands: Follows multistep commands with increased time;Follows one step commands consistently Attention Span: Attends with cues to redirect;Difficulty dividing attention Memory: Appears intact Safety Judgement: Decreased awareness of need for safety Problem Solving: Assistance required to correct errors made;Assistance required to generate solutions Insights: Decreased awareness of deficits Initiation: Requires cues for some Sequencing: Requires cues for some Orientation Overall Orientation Status: Within Functional Limits Orientation Level: Oriented X4 Education Provided Comments: Pt educated on OT role, OT POC, activity promotion, transfer training,safety awareness, benefit of using AD-good return AM-PAC Score AM-PAC Inpatient Daily Activity Raw Score: 21 (08/22/221716) AM-PAC Inpatient ADL T-Scale Score : 44.27 (08/22/221716) ADL Inpatient CMS 0-100% Score: 32.79 (08/22/221716) ADL Inpatient CMS G-Code Modifier : CJ (08/22/221716) Goals Short Term Goals Time Frame for Short Term Goals: By discharge, pt will: Short Term Goal 1: Demo functional sit<>stand transfers and functional mobility with Mod IND Short Term Goal 2: Demo 10 minutes of dynamic standing balance with SUP and use of LRAD PRN Short Term Goal 3: Demo ADLs with Mod IND and DME PRN Short Term Goal 4: Demo good safety awareness indpenedntly throughout all functional activities with 0 VCs to initiate Therapy Time Individual Concurrent Group Co-treatment Time In 1309 Time Out 1331 Minutes 22 Timed Code Treatment Minutes: 8 Minutes Vance Sandoval OTR/L: * Johana Najera, PT - 08/22/2022 3:33 PM EDT Physical Therapy Facility/Department: [facility] RENAL//MED SURG Physical Therapy Initial Assessment Name: Bharat Manzanares : 1965 Date of Service: 08/22/2022 Chief Complaint Patient presents with Knee Pain Discharge Recommendations: Patient would benefit from continued therapy after discharge Patient Diagnosis(es): The primary encounter diagnosis was Leg swelling. A diagnosis of Elevated d-dimer was also pertinent to this visit. Past Medical History: has a past medical history of Acoustic neuroma ([facility]), Allergic rhinitis, Asthma, Astigmatism, Attention deficit disorder with hyperactivity, Cerebral palsy ([facility]), CHF (congestive heart failure) ([facility]), COPD (chronic obstructive pulmonary disease) ([facility]), Dental caries, Developmental academic disorder, Diarrhea, Dysphagia, GERD (gastroesophageal reflux disease), Gingival and periodontal disease, Hearing loss, Hordeolum externum of left lower eyelid, Hyperglycemia, Hyperlipidemia, Hypertension, Hypoglycemia, Hypothyroidism, Infantile cerebral palsy ([facility]), Intractable migraine without aura, Irregular heartbeat, Irregular heartbeat, Learning disability, Low compliance bladder, Mental retardation, Migraine, Mixed stress and urge urinary incontinence, Morbid obesity ([facility]), Myopia, Neuropathy, Nicotine dependence, cigarettes, with other nicotine-induced disorders, Nuclear sclerotic cataract, OAB (overactive bladder), Osteoarthritis, Overactive bladder, Parasomnia, Polyneuropathy in diabetes ([facility]), Poor dentition, Simple chronic bronchitis ([facility]), Stress incontinence in female, Thyroid disease, Tobacco abuse, Type 2 diabetes mellitus ([facility]), Urinary incontinence, and Wears glasses. Past Surgical History: has a past surgical history that includes Upper gastrointestinal endoscopy (12/01/2019); Endoscopy, colon, diagnostic; Dental surgery (03/11/2020); and Dental surgery (N/A, 03/11/2020). Assessment Body Structures, Functions, Activity Limitations Requiring Skilled Therapeutic Intervention: Decreased functional mobility ;Decreased strength;Decreased endurance;Increased pain Assessment: The pt ambulated 35 ft without a device x CGA. She reported increased pain in her R LE and was mildly unsteady. She could benefit from a continuation of PT for gait and strengthening following her DC Therapy Prognosis: Good Decision Making: Medium Complexity Requires PT Follow-Up: Yes Activity Tolerance Activity Tolerance: Patient limited by fatigue;Patient limited by endurance;Patient limited by pain Plan Physcial Therapy Plan General Plan: (5-6x wk) Current Treatment Recommendations: Strengthening, Functional mobility training, Transfer training, Endurance training, Stair training, Gait training, Safety education & training Safety Devices Type of Devices: Nurse notified, Left in bed, Call light within reach, Gait belt Restraints Restraints Initially in Place: No Restrictions Position Activity Restriction Other position/activity restrictions: Up with assist Subjective General Patient assessed for rehabilitation services?: Yes Response To Previous Treatment: Not applicable Family / Caregiver Present: No Follows Commands: Within Functional Limits Subjective Subjective: The pt reports a 9/10 pain in her R LE Social/Functional History Social/Functional History Lives With: Alone Type of Home: Apartment (4th floor) Home Layout: One level Home Access: Elevator (Reports sometimes elevator breaks down) Bathroom Shower/Tub: Walk-in shower Bathroom Toilet: Standard Bathroom Equipment: Grab bars in shower, Shower chair, Grab bars around toilet Home Equipment: Rollator (Uses it intermittently.) ADL Assistance: Independent Homemaking Assistance: Independent Homemaking Responsibilities: Yes Ambulation Assistance: Independent Transfer Assistance: Independent Active Extractor Loader And Unloader: No Patient's Extractor Loader And Unloader Info: TARPS or cab Occupation: On disability Leisure & Hobbies: watch tv Vision/Hearing Vision Vision: Impaired Vision Exceptions: Wears glasses at all times Hearing Hearing: Exceptions to WFL Hearing Exceptions: Hard of hearing/hearing concerns (in process of getting hearing aide) Cognition Orientation Overall Orientation Status: Within Functional Limits Orientation Level: Oriented X4 Cognition Overall Cognitive Status: WFL Objective Heart Rate: 59 Heart Rate Source: Monitor BP: 133/74 MAP (Calculated): 94 Resp: 16 SpO2: 91 % O2 Device: None (Room air) AROM RLE (degrees) RLE AROM: WFL AROM LLE (degrees) LLE AROM : WNL AROM RUE (degrees) RUE AROM : WNL AROM LUE (degrees) LUE AROM : WNL Strength RLE Comment: N/T Strength LLE Strength LLE: WFL Strength RUE Strength RUE: WFL Strength LUE Strength LUE: WFL Bed mobility Supine to Sit: Contact guard assistance Sit to Supine: Contact guard assistance Scooting: Contact guard assistance Transfers Sit to Stand: Contact guard assistance Stand to Sit: Contact guard assistance Ambulation Surface: Level tile Device: No Device Assistance: Contact guard assistance Distance: amb 35 ft without a device x CGA Balance Posture: Good Sitting - Static: Good Sitting - Dynamic: Fair Standing - Static: Fair Standing - Dynamic: Fair OutComes Score AM-PAC Score AM-PAC Inpatient Mobility Raw Score : 20 (08/22/22 152) AM-PAC Inpatient T-Scale Score : 47.67 (08/22/22 152) Mobility Inpatient CMS 0-100% Score: 35.83 (08/22/22 1525) Mobility Inpatient CMS G-Code Modifier : CJ (08/22/221524) Tinneti Score Goals Short Term Goals Time Frame for Short Term Goals: 10 visits Short Term Goal 1: transfers with SBA Short Term Goal 2: amb 150 ft with appropriate device x SBA Short Term Goal 3: ascend/descend 4 steps with SBA Short Term Goal 4: 20 min strengthening exercise program x SBA Education Patient Education Education Given To: Patient Education Provided: Role of Therapy;Plan of Care Education Method: Verbal Barriers to Learning: None Education Outcome: Verbalized understanding Therapy Time Individual Concurrent Group Co-treatment Time In 1310 Time Out 1331 Minutes 21 Johana Najera PT * Jeannette Hassan [facility] - 08/22/2022 12:11 PM EDT [facility] Pharmacokinetic Monitoring Service - Vancomycin Bharat Manzanares is a 57 y.o. female starting on vancomycin therapy for cellulitis. Pharmacy consulted by dr Yanes for monitoring and adjustment. Target Concentration: Goal trough of 10-15 mg/L and AUC/CHAVO <500 mg*hr/L Additional Antimicrobials: Pertinent Laboratory Values: Wt Readings from Last 1 Encounters: 08/20/22 257 lb (116.6 kg) Temp Readings from Last 1 Encounters: 08/22/22 98.2 F (36.8 C) (Oral) Estimated Creatinine Clearance: 78 mL/min (A) (based on SCr of 0.94 mg/dL (H)). Recent Labs 08/21/22 0023 08/21/22 0634 08/22/22 0554 CREATININE 0.70 0.71 0.94* WBC 12.1* -- -- Procalcitonin: Pertinent Cultures: Culture Date Source Results MRSA Nasal Swab: N/A. Non-respiratory infection. Plan: Dosing recommendations based on Bayesian software Start vancomycin 1500 mg q24h Anticipated AUC of 497 and trough concentration of 11.9 at steady state Renal labs as indicated Vancomycin concentration not ordered Pharmacy will continue to monitor patient and adjust therapy as indicated Thank you for the consult, Jeannette Hassan RPH 08/22/2022 12:10 PM * Eduard Yanes DO - 08/22/2022 11:59 AM EDT Images from the original note were not included. [facility] Office: [phone] Justin Egan DO, Papi Leon DO, Willie Bocanegra DO, Mahesh Ruth DO, Tuan Bush MD, Lalitha Odell MD, Angela Woodard MD, Cady Tran MD, Eliazar Howard MD, Mary White MD, Eduard Yanes DO, Cyndi Driver MD, Miguel A Ellison DO, Dana Hernandez MD, Bang Munoz MD, Paulino Egan DO, Jennifer Minor MD, Carlos Segal MD, José Miguel Sepulveda DO, Aleisha De Dios MD, Arlene Camacho MD, Silvia Estrada MD, Karen Chand MD, Maria G Nguyễn MD, Oli Houston DO, Randy Israel MD, Chemo Morris MD, Milagro Anderson, EBER, Brenda Ratliff CNP, Juju Monge CNP, Devin Mckenna CNP, Tonia Rhodes, NEVILLE, Anne Casillas, EBER, Lois Wiggins, EBER, Sangita Barrera, EBER, Radha Purdy, EBER, Trudy Velasco, EBER, Alfred Sapp PA-C, Tatum Garrido, FREEZER ASSISTANT, Samantha Williamson, EBER, Zulema Carias, EBER [facility] IN-PATIENT SERVICE [facility] Progress Note 08/22/2022 11:59 AM Name: Bharat Manzanares Acct: [id number] Room: [id number] Day: 1 Admit Date: 08/20/2022 11:04 PM PCP: Brice Mcfarland APRN Code Status: Full Code Subjective: C/C: Chief Complaint Patient presents with Knee Pain Interval History Status: not changed. Patient's right lower extremity appears improved however patient was found to have a DVT yesterday.Patient was started on Eliquis which she has been on before. We discussed outpatient follow-up withinfectious disease. Brief History: Bharat Manzanares is a 57 y.o. female who presents to our hospital for evaluation right leg pain, and redness along with bilateral lower extremity swelling and joing pain with stiffness. Pain has beengradually worsening over the last couple of days. She usually takes tylenol for pain. She has a history of congestive hear failure and she follows with [facility] service technician but has not seen them in four or five years. She sees [facility] now. She takes lasix 20 mg once daily and says she has a good response to it. She says she feels like shes retaining more fluid. She cannot lay flat due to shortness of breath. She has bed bugs at home so she does not have anywhere to sleep. She does have a history of blood clots in lower extremity but has been off of it for the last two years. Review of Systems: Constitutional: negative for chills, fevers, sweats Respiratory: negative for cough, dyspnea on exertion, shortness of breath, wheezing Cardiovascular: negative for chest pain, chest pressure/discomfort, lower extremity edema, palpitations Gastrointestinal: negative for abdominal pain, constipation, diarrhea, nausea, vomiting Neurological: negative for dizziness, headache Medications: Allergies: Allergies Allergen Reactions Dust Mite Mixed Allergen Ext [Mite (D. Farinae)] Histamine Phosphate Current Meds: Scheduled Meds: budesonide-formoterol 2 puff Inhalation BID atorvastatin 40 mg Oral Nightly [START ON 08/23/2022] buPROPion 150 mg Oral QAM divalproex 250 mg Oral BID [START ON 08/23/2022] levothyroxine 200 mcg Oral Daily oxybutynin 10 mg Oral Nightly pantoprazole 40 mg Oral Daily furosemide 40 mg Oral Daily sodium chloride flush 5-40 mL IntraVENous 2 times per day cefTRIAXone (ROCEPHIN) IV 1,000 mg IntraVENous Q24H apixaban 10 mg Oral BID Followed by [START ON 08/28/2022] apixaban 5 mg Oral BID metFORMIN 500 mg Oral BID WC nicotine 1 patch TransDERmal Daily Continuous Infusions: sodium chloride dextrose PRN Meds: sodium chloride flush, sodium chloride, potassium chloride OR potassium alternative oral replacement OR potassium chloride, magnesium sulfate, ondansetron OR ondansetron, polyethylene glycol, acetaminophen OR acetaminophen, ipratropium-albuterol, glucose, dextrose bolus OR dextrose bolus, glucagon (rDNA), dextrose, calcium carbonate Data: Past Medical History: has a past medical history of Acoustic neuroma ([facility]), Allergic rhinitis, Asthma, Astigmatism, Attention deficit disorder with hyperactivity, Cerebral palsy ([facility]), CHF (congestive heart failure) ([facility]), COPD (chronic obstructive pulmonary disease) ([facility]), Dental caries, Developmental academic disorder, Diarrhea, Dysphagia, GERD (gastroesophageal reflux disease), Gingival and periodontal disease, Hearing loss, Hordeolum externum of left lower eyelid, Hyperglycemia, Hyperlipidemia, Hypertension, Hypoglycemia, Hypothyroidism, Infantile cerebral palsy ([facility]), Intractable migraine without aura, Irregular heartbeat, Irregular heartbeat, Learning disability, Low compliance bladder, Mental retardation, Migraine, Mixed stress and urge urinary incontinence, Morbid obesity ([facility]), Myopia, Neuropathy, Nicotine dependence, cigarettes, with other nicotine-induced disorders, Nuclear sclerotic cataract, OAB (overactive bladder), Osteoarthritis, Overactive bladder, Parasomnia, Polyneuropathy in diabetes ([facility]), Poor dentition, Simple chronic bronchitis ([facility]), Stress incontinence in female, Thyroid disease, Tobacco abuse, Type 2 diabetes mellitus ([facility]), Urinary incontinence, and Wears glasses. Social History: reports that she has been smoking cigarettes. She has a 40.00 pack-year smoking history. She has never used smokeless tobacco. She reports that she does not drink alcohol and does notuse drugs. Family History: Family History Problem Relation Age of Onset Stroke Paternal Grandmother Cancer Paternal Grandfather Vitals: BP 133/74 Pulse 59 Temp 98.2 F (36.8 C) (Oral) Resp 16 Ht 5' 2 (1.575 m) Wt 257 lb (116.6 kg) LMP 11/10/2013 SpO2 91% BMI 47.01 kg/m Temp (24hrs), Av.3 F (36.8 C), Min:98.2 F (36.8 C), Max:98.4 F (36.9 C) Recent Labs 08/21/22 1608 08/21/22 1945 08/22/22 0739 08/22/22 1125 POCGLU 213* 238* 174* 207* I/O (24Hr): Intake/Output Summary (Last 24 hours) at 08/22/2022 1159 Last data filed at 08/21/2022 1505 Gross per 24 hour Intake 400 ml Output -- Net 400 ml Labs: Hematology: Recent Labs 08/21/22 0023 WBC 12.1* RBC 5.20* HGB 13.0 HCT 43.1 MCV 82.9 MCH 25.0* MCHC 30.2 RDW 16.3* PLT 274 MPV 9.6 DDIMER 2.70 Chemistry: Recent Labs 08/21/22 0023 08/21/22 0144 08/21/22 0634 08/22/22 0554 NA 132* -- 137 137 K 4.1 -- 3.8 4.2 CL 96* -- 100 99 CO2 24 -- 28 26 GLUCOSE 146* -- 153* 174* BUN 23* -- 22* 24* CREATININE 0.70 -- 0.71 0.94* ANIONGAP 12 -- 9 12 LABGLOM >60 -- >60 >60 CALCIUM 9.3 -- 8.6 9.1 LACTACIDWB -- 1.0 -- -- Recent Labs 08/21/22 0751 08/21/22 1118 08/21/22 1608 08/21/22 1945 08/22/22 0739 08/22/22 1125 POCGLU 168* 169* 213* 238* 174* 207* ABG: Lab Results Component Value Date/Time PHART 7.414 06/13/2017 01:05 PM CCN5OBC 44.1 06/13/2017 01:05 PM PO2ART 68.0 06/13/2017 01:05 PM DVR7HDX 27.7 06/13/2017 01:05 PM NBEA NOT REPORTED 06/13/2017 01:05 PM PBEA 3.1 06/13/2017 01:05 PM Y2XEDRGL 95.6 06/13/2017 01:05 PM FIO2 ROOM AIR 06/13/2017 01:05 PM Lab Results Component Value Date/Time SPECIAL NOT REPORTED 01/27/2021 02:25 PM Lab Results Component Value Date/Time CULTURE ESCHERICHIA COLI 10 to 50,000 CFU/ML (A) 03/27/2022 06:15 PM Radiology: XR FEMUR RIGHT (MIN 2 VIEWS) Result Date: 08/21/2022 Soft tissue swelling within the right lower extremity. No definite acute osseous abnormality in right femur or right tibia/fibula. Although the right hip is not well visualized due to body habitus and overlying soft tissue. XR TIBIA FIBULA RIGHT (2 VIEWS) Result Date: 08/21/2022 Soft tissue swelling within the right lower extremity. No definite acute osseous abnormality in right femur or right tibia/fibula. Although the right hip is not well visualized due to body habitus and overlying soft tissue. Physical Examination: General appearance: alert, cooperative and no distress Mental Status: oriented to person, place and time and normal affect Lungs: clear to auscultation bilaterally, normal effort Heart: regular rate and rhythm, no murmur Abdomen: soft, nontender, nondistended, normal bowel sounds, no masses, hepatomegaly, splenomegaly Extremities: 1+ edema with erythema, tenderness of the right lower extremity Skin: no gross lesions, rashes, induration Assessment: Hospital Problems Last Modified POA * (Principal) Cellulitis of right lower extremity 08/21/2022 Yes Deep vein thrombosis (DVT) of lower extremity (HCC) 08/21/2022 Yes OAB (overactive bladder) 08/21/2022 Yes Type 2 diabetes mellitus without complication (HCC) 08/21/2022 Yes Acquired hypothyroidism 08/21/2022 Yes Hyperlipidemia 08/21/2022 Yes Morbid obesity (HCC) 08/21/2022 Yes Plan: Cellulitis of the right lower extremity Likely exacerbated by scratching and third toe infection. Patient failed doxycycline outpatient, has no follow-up and cellulitis is treated by PCP. Patient is on Rocephin and vancomycin currently will consult infectious disease to follow-up outpatient Likely would benefit from podiatry evaluation outpatient DVT of the right lower extremity Patient was previously on Eliquis for right arm DVT during PICC line, patient was restarted on Eliquis Patient will continue at discretion of PCP, minimum of 6 months of anticoagulation Overactive bladder Continue oxybutynin Bedbug infestation Nursing notified, contact precaution Type 2 diabetes Continue home medications Schizoaffective disorder On Depakote, Invega injections and Wellbutrin Morbid obesity Hypothyroidism Eduard Yanes DO 08/22/2022 11:59 AM * Sundar Wilson - 08/22/2022 7:10 AM EDT SPIRITUAL CARE DEPARTMENT - [facility] [place] PROGRESS NOTE Shift date: 08/21/2022 Shift day: Saturday Shift # 3 Room # 0321/0321-02 Name: Bharat Manzanares Mormonism: [employer] Place of hoahaoism: [place] [employer] [place] Referral: Routine Visit Admit Date & Time: 08/20/2022 11:04 PM Assessment: Bharat Manzanares is a 57 y.o. female in the hospital because blood clots in leg; infections in leg and pneumonia in lungs. Upon entering the room bond underwriter observes awake early and watching television. Patient had asked nurse if Valance Cutter could come and pray with her. Patient wanted prayer support for some choices she is m aking: Stop Smoking Healthier eating with less sugar and sodium Possible move to [facility]-- Patient wanting Assembler For Puller Over Machine to facilitate paperwork for move;need form for supporting her disability status. Valance Cutter engaged in reflective listening Patient and Valance Cutter prayed together. Intervention: Planer Chain Offbearer introduced self and title as auto porter come to give prayer support. Planer Chain Offbearer offered space for patient to express feelings, needs, and concerns and provided a ministry presence. Patient seems to have embraced several significant changes for her life. Outcome: Patient and Valance Cutter prayed together. Plan: Chaplains will remain available to offer spiritual and emotional support as needed. . Spiritual Care Department [facility] [phone] 08/22/22 0520 Encounter Summary Service Provided For: Patient Referral/Consult From: Nurse Support System Family members;Parent Last Encounter 08/22/22 Complexity of Encounter Low Begin Time 0520 End Time 0542 Total Time Calculated 22 min Encounter Type Initial Screen/Assessment Spiritual/Emotional needs Type Spiritual Support;Other (comment) (Patient wanted prayer as she wishes to make lifestyle changes: stop smoking, heaalthier eating; etc.) Assessment/Intervention/Outcome Assessment Calm;Hopeful;Coping Intervention Active listening;Discussed relationship with God;Explored/Affirmed feelings, thoughts,concerns;Explored Coping Skills/Resources;Nurtured Hope;Prayer (assurance of)/[place] Outcome Acceptance;Comfort;Connection/Belonging;Coping;Encouraged;Engaged in conversation;Expressedfeelings, needs, and concerns;Optimistic * Michaela Hernandez RN - 08/21/2022 12:[address] Ellison messaged via perfect serve that patient was concerned that no one has looked at her toe on her R foot that she said was infected and as a outpatient was getting antibiotic cream put on it * Michaela Hernandez RN - 08/21/2022 11:[address] Ellison informed of vascular studies results of postive DVT * Sheryl Jacob - 08/21/2022 9:08 AM EDT Images from the original note were not included. Physical Therapy Physical Therapy Cancel Note DATE: 08/21/2022 NAME: Bharat Manzanares : 1965 Patient not seen this date for Physical Therapy due to: Testing: Pt leaving for vascular lab. PT will check back as time allows this PM. * Preet Harrell RN - 08/21/2022 3:48 AM EDT Planer Chain Offbearer tried to draw a margin on her right leg which is red, tender and warm but patient refused. [facility] Work Phone: [phone] 842-431703-16-2023 Hospital course Narrative* Eduard Yanes DO - 08/23/2022 10:06 AM EDT Images from the original note were not included. [facility] Office: [phone] Justin Egan DO, Papi Leon DO, Willie Bocanegra DO, Mahesh Ruth DO, Tuan Bush MD, Lalitha Odell MD, Angela Woodard MD, Cady Tran MD, Eliazar Howard MD, Mary White MD, Eduard Yanes DO, Cyndi Driver MD, Miguel A Ellison DO, Dana Hernandez MD, Bang Munoz MD, Paulino Egan DO, Jennifer Minor MD, Carlos Segal MD, José Miguel Sepulveda DO, Aleisha De Dios MD, Arlene Camacho MD, Silvia Estrada MD, Karen Chand MD, Maria G Nguyễn MD, Oli Houston DO, Randy Israel MD, Chemo Morris MD, Milagro Anderson CNP, Brenda Ratliff CNP, Juju Monge CNP, Devin Mckenna CNP, Tonia Rhodes DNP, Anne Casillas, EBER, Lois Wiggins, EBER, Sangita Barrera, EBER, Radha Purdy, EBER, Trudy Velasco CNP, Alfred Sapp PA-C, RUBI Garcia, Samantha Williamson CNP, Zulema Carias, EBER [facility] IN-PATIENT SERVICE [facility] Discharge Summary Patient ID: Bharat Manzanares : 1965 ACCOUNT: [id number] Patient's PCP: Brice Mcfarland APRN Admit Date: 08/20/2022 Discharge Date: 08/23/2022 Length of Stay: 2 Code Status: Full Code Admitting Physician: No admitting provider for patient encounter. Discharge Physician: Eduard Yanes DO Active Discharge Diagnoses: Hospital Problem Lists: Principal Problem: Cellulitis of right lower extremity Active Problems: Deep vein thrombosis (DVT) of lower extremity (HCC) Leg swelling Infestation by bed bug Chronic pruritus OAB (overactive bladder) Type 2 diabetes mellitus without complication (HCC) Acquired hypothyroidism Hyperlipidemia Morbid obesity (HCC) Resolved Problems: * No resolved hospital problems. * Admission Condition: good Discharged Condition: good Hospital Stay: Hospital Course: Bharat Manzanares is a 57 y.o. female who was admitted for the management of Cellulitis of right lower extremity , presented to ER with Knee Pain Patient was seen by the emergency department and admitted for further evaluation of cellulitis of right toe. Suspected that cellulitis likely from ingrown toenail of the third toe on the right. Patient also was screened for DVT and was found to have a right saphenous thrombosis extending to the common femoral vein without occlusion. Patient was started on anticoagulation, Eliquis which she was previously on for a catheter related DVT Patient was initially started on vancomycin and Rocephin, eventually transition to Augmentin for antibiotics. Her cellulitis improved, during evaluation patient was only able to ambulate 35 feet withphysical therapy, due to issues with help at home patient was pursued rehab placement. Patient otherwise stable for discharge currently Outpatient patient was recommended follow-up with podiatry and primary care physician, she will address her anticoagulation with her PCP. She will continue 7 days of Augmentin Significant therapeutic interventions: none Significant Diagnostic Studies: Labs / Micro: CBC: Lab Results Component Value Date/Time WBC 14.0 08/23/2022 05:38 AM RBC 4.55 08/23/2022 05:38 AM RBC 4.78 10/22/2011 06:29 AM HGB 11.7 08/23/2022 05:38 AM HCT 37.9 08/23/2022 05:38 AM MCV 83.3 08/23/2022 05:38 AM MCH 25.7 08/23/2022 05:38 AM MCHC 30.9 08/23/2022 05:38 AM RDW 16.8 08/23/2022 05:38 AM PLT 405 08/23/2022 05:38 AM PLT 201 10/22/2011 06:29 AM BMP: Lab Results Component Value Date/Time GLUCOSE 190 08/23/2022 05:38 AM GLUCOSE 392 10/22/2011 10:33 AM NA 133 08/23/2022 05:38 AM K 4.3 08/23/2022 05:38 AM CL 96 08/23/2022 05:38 AM CO2 26 08/23/2022 05:38 AM ANIONGAP 11 08/23/2022 05:38 AM BUN 23 08/23/2022 05:38 AM CREATININE 0.85 08/23/2022 05:38 AM BUNCRER NOT REPORTED 10/11/2020 09:06 AM CALCIUM 9.0 08/23/2022 05:38 AM LABGLOM >60 08/23/2022 05:38 AM GFRAA >60 10/11/2020 09:06 AM GFR 10/11/2020 09:06 AM GFR NOT REPORTED 10/11/2020 09:06 AM HFP: Lab Results Component Value Date/Time PROT 5.5 10/11/2020 09:06 AM CMP: Lab Results Component Value Date/Time GLUCOSE 190 08/23/2022 05:38 AM GLUCOSE 392 10/22/2011 10:33 AM NA 133 08/23/2022 05:38 AM K 4.3 08/23/2022 05:38 AM CL 96 08/23/2022 05:38 AM CO2 26 08/23/2022 05:38 AM BUN 23 08/23/2022 05:38 AM CREATININE 0.85 08/23/2022 05:38 AM ANIONGAP 11 08/23/2022 05:38 AM ALKPHOS 79 10/11/2020 09:06 AM ALT <5 10/11/2020 09:06 AM AST 8 10/11/2020 09:06 AM BILITOT 0.59 10/11/2020 09:06 AM LABALBU 3.5 08/23/2022 05:38 AM ALBUMIN 1.0 10/11/2020 09:06 AM LABGLOM >60 08/23/2022 05:38 AM GFRAA >60 10/11/2020 09:06 AM GFR 10/11/2020 09:06 AM GFR NOT REPORTED 10/11/2020 09:06 AM PROT 5.5 10/11/2020 09:06 AM CALCIUM 9.0 08/23/2022 05:38 AM PT/INR: No results found for: PTINR, PROTIME, INR PTT: No results found for: APTT FLP: Lab Results Component Value Date/Time CHOL 133 09/16/2014 04:37 PM TRIG 169 09/16/2014 04:37 PM HDL 41 08/20/2020 09:52 AM U/A: Lab Results Component Value Date/Time COLORU Yellow 03/27/2022 06:25 PM TURBIDITY Clear 03/27/2022 06:25 PM SPECGRAV 1.009 03/27/2022 06:25 PM HGBUR TRACE 03/27/2022 06:25 PM PHUR 6.0 03/27/2022 06:25 PM PROTEINU NEGATIVE 03/27/2022 06:25 PM GLUCOSEU NEGATIVE 03/27/2022 06:25 PM GLUCOSEU NEGATIVE 10/07/2011 05:41 PM KETUA NEGATIVE 03/27/2022 06:25 PM BILIRUBINUR NEGATIVE 03/27/2022 06:25 PM BILIRUBINUR moderate 06/17/2019 02:07 PM BILIRUBINUR NEGATIVE 10/07/2011 05:41 PM UROBILINOGEN Normal 03/27/2022 06:25 PM NITRU NEGATIVE 03/27/2022 06:25 PM LEUKOCYTESUR SMALL 03/27/2022 06:25 PM TSH: Lab Results Component Value Date/Time TSH 21.44 10/11/2020 09:06 AM Radiology: XR FEMUR RIGHT (MIN 2 VIEWS) Result Date: 08/23/2022 Soft tissue swelling within the right lower extremity. No definite acute osseous abnormality in right femur or right tibia/fibula. Although the right hip is not well visualized due to body habitus and overlying soft tissue. XR TIBIA FIBULA RIGHT (2 VIEWS) Result Date: 08/23/2022 Soft tissue swelling within the right lower extremity. No definite acute osseous abnormality in right femur or right tibia/fibula. Although the right hip is not well visualized due to body habitus and overlying soft tissue. Consultations: Consults: Final Specialist Recommendations/Findings: IP CONSULT TO HOSPITALIST IP CONSULT TO INFECTIOUS DISEASES IP CONSULT TO SOCIAL WORK The patient was seen and examined on day of discharge and this discharge summary is in conjunction with any daily progress note from day of discharge. Discharge plan: Disposition: Home Physician Follow Up: Brice Mcfarland, MEETING COORDINATOR [address] [id number] Schedule an appointment as soon as possible for a visit in 1 week(s) hospital followup Requiring Further Evaluation/Follow Up POST HOSPITALIZATION/Incidental Findings: none Diet: regular diet Activity: As tolerated Instructions to Patient: See dc instructions Discharge Medications: Medication List START taking these medications amoxicillin-clavulanate 500-125 MG per tablet Commonly known as: AUGMENTIN Take 1 tablet by mouth every 8 hours for 20 doses Hydrocerin Crea cream Apply topically 2 times daily CHANGE how you take these medications apixaban 5 MG Tabs tablet Commonly known as: Eliquis Take 2 tablets by mouth 2 times daily for 7 days, THEN 1 tablet 2 times daily. Start taking on: August 21, 2022 What changed: See the new instructions. Another medication with the same name was removed. Continue taking this medication, and follow the directions you see here. ipratropium-albuterol 0.5-2.5 (3) MG/3ML Soln nebulizer solution Commonly known as: DUONEB Take 3 mLs by nebulization every 6 hours as needed for Shortness of Breath What changed: Another medication with the same name was removed. Continue taking this medication, and follow the directions you see here. CONTINUE taking these medications acetaminophen 500 MG tablet Commonly known as: TYLENOL Take 1 tablet by mouth 4 times daily as needed for Pain Advair HFA 115-21 MCG/ACT inhaler Generic drug: fluticasone-salmeterol Inhale 2 puffs into the lungs 2 times daily atorvastatin 20 MG tablet Commonly known as: LIPITOR Benadryl Allergy 25 MG capsule Generic drug: diphenhydrAMINE buPROPion 150 MG extended release tablet Commonly known as: WELLBUTRIN XL Compressor/Nebulizer [facility] Use for shortness of breath as needed Depakote Sprinkles [address] capsule Generic drug: divalproex fluticasone 50 MCG/ACT nasal spray Commonly known as: FLONASE 2 sprays by Each Nostril route daily furosemide 20 MG tablet Commonly known as: LASIX glimepiride 2 MG tablet Commonly known as: AMARYL Incontinence Brief [facility] Patient states she needs xl in the select brand levothyroxine 175 MCG tablet Commonly known as: SYNTHROID melatonin 3 MG Tabs tablet midodrine 5 MG tablet Commonly known as: PROAMATINE Myrbetriq 50 MG Tb24 Generic drug: mirabegron * nicotine 21 MG/24HR Commonly known as: NICODERM CQ * Nicotrol 10 MG inhaler Generic drug: nicotine INHALE 1 PUFF INTO THE LUNGS NEEDED FOR SMOKING CESSATION ondansetron 4 MG disintegrating tablet Commonly known as: Zofran ODT Take 1 tablet by mouth every 8 hours as needed for Nausea oxybutynin 5 MG extended release tablet Commonly known as: DITROPAN-XL paliperidone palmitate 234 MG/1.5ML Susp IM injection Commonly known as: INVEGA SUSTENNA pantoprazole 40 MG tablet Commonly known as: PROTONIX potassium chloride 20 MEQ/15ML (10%) oral solution TAKE 15 MLS BY MOUTH DAILY ProAir HFA 108 (90 Base) MCG/ACT inhaler Generic drug: albuterol sulfate HFA INHALE 2 PUFFS INTO THE LUNGS EVERY 6 HOURS NEEDED FOR WHEEZING Vitamin D-3 5000 UNIT/ML Liqd ZOLMitriptan 5 MG tablet Commonly known as: ZOMIG * This list has 2 medication(s) that are the same as other medications prescribed for you. Read thedirections carefully, and ask your doctor or other care provider to review them with you. STOP taking these medications ARIPiprazole 5 MG tablet Commonly known as: ABILIFY azithromycin 250 MG tablet Commonly known as: ZITHROMAX cefdinir 300 MG capsule Commonly known as: OMNICEF ibuprofen 400 MG tablet Commonly known as: IBU ASK your doctor about these medications Riomet 500 MG/5ML Soln Generic drug: metFORMIN HCl Where to Get Your Medications These medications were sent to [facility], [place] - [address] [facility] - P [phone] - F [phone] [place] [address] [place] [address] amoxicillin-clavulanate 500-125 MG per tablet apixaban 5 MG Tabs tablet Hydrocerin Crea cream No discharge procedures on file. Time Spent on discharge is 38 mins in patient examination, evaluation, counseling as well as medication reconciliation, prescriptions for required medications, discharge plan and follow up. Electronically signed by Eduard Yanes DO 08/23/2022 10:[address] Brice Mcfarland APRN for the opportunity to be involved in this patient's care. [facility] [employer] Phone: [phone] 420-103703-16-2023 Hospital Discharge instructions* Discharge Instructions* Eduard Yanes DO - 08/23/2022 10:05 AM EDT Follow-up with primary care physician in 1 to 2 weeks after discharge from rehab continue antibiotics for 7 days total Attempt to eradicate bedbugs from house Follow-up with podiatry outpatient, continue care for right toe Continue taking Eliquis for minimum of 6 months, discussed with primary care physician whether to continue lifelong or not * Discharge Instr - PADMINI* Eduard Yanes DO - 08/23/2022 10:06 AM EDT Continuity of Care Form Patient Name: Bharat Manzanares : 1965 Admit date: 08/20/2022 Discharge date: 08/23/2022 Code Status Order: Full Code Advance Directives: Admitting Physician: No admitting provider for patient encounter. PCP: Brice Mcfarland APRN Discharging Nurse: Ciarra Discharging Hospital Unit/Room#: 0321/0321-02 Discharging Unit Emergency Contact: Extended Emergency Contact Information Primary Emergency Contact: Dutch Manzanares Address: [place] [address] [facility] Mobile Relation: Parent Secondary Emergency Contact: Chasity Ruiz Address: [place] [facility] Relation: Parent Guardian: JESSICA LOPEZ Mobile Relation: Legal Guardian Past Surgical History: Past Surgical History: Procedure Laterality Date DENTAL SURGERY 03/11/2020 extractions x4 DENTAL SURGERY N/A 03/11/2020 SURGICAL EXTRACTION OF TEETH 1, 2, 14, 16 performed by Mitch Mccall DDS at [facility] OR ENDOSCOPY, COLON, DIAGNOSTIC UPPER GASTROINTESTINAL ENDOSCOPY 12/01/2019 EGD BIOPSY performed by Olga Zeng MD at [facility] OR Immunization History: Immunization History Administered Date(s) Administered COVID-19, PFIZER PURPLE top, DILUTE for use, (age 12 y+), 30mcg/0.3mL 06/19/2020, 07/10/2020, 03/06/2021 INFLUENZA, INTRADERMAL, QUADRIVALENT, PRESERVATIVE FREE 03/25/2018 Influenza A ([id number]) Vaccine PF IM 07/14/2009 Influenza Virus Vaccine 04/30/2001, 04/22/2002, 03/21/2017, 04/04/2021 Influenza Whole 03/09/2014 Influenza, FLUARIX, FLULAVAL, FLUZONE (age 6 mo+) AND AFLURIA, (age 3 y+), PF, 0.5mL 03/26/2019 Influenza, FLUZONE (age 65 y+), High Dose, 0.7mL 03/21/2020 Influenza, Intradermal, Preservative free 03/10/2019 Influenza, Quadv, 6 mo and older, IM (Fluzone, Flulaval) 03/21/2017 Pneumococcal Conjugate Vaccine 05/21/2013 Pneumococcal Polysaccharide ([id number]) 03/26/2019 Tdap (Boostrix, Adacel) 02/01/2017 Zoster Recombinant (Shingrix) 01/13/2020 Active Problems: Patient Active Problem List Diagnosis Code Stress incontinence in female N39.3 OAB (overactive bladder) N32.81 Type 2 diabetes mellitus without complication ([facility]) E11.9 Acquired hypothyroidism E03.9 Simple chronic bronchitis ([facility]) J41.0 Migraine G43.909 Acoustic neuroma ([facility]) D33.3 H/O gastroesophageal reflux (GERD) Z87.19 Medication refill Z76.0 Asthma J45.909 Astigmatism H52.209 Attention deficit disorder with hyperactivity F90.9 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 Chronic obstructive lung disease ([facility]) J44.9 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 Dysphagia R13.10 Essential hypertension I10 Gastroesophageal reflux disease K21.9 Gingival and periodontal disease K05.6, K06.9 Hearing loss H91.90 Hyperlipidemia E78.5 Infantile cerebral palsy ([facility]) G80.9 Intractable migraine without aura G43.019 Low compliance bladder N31.8 Mental retardation F79 Mixed stress and urge urinary incontinence N39.46 Morbid obesity ([facility]) E66.01 Myopia H52.10 Nuclear sclerotic cataract H25.10 Obesity E66.9 Parasomnia G47.50 Polyneuropathy in diabetes ([facility]) E11.42 Pure hyperglyceridemia E78.1 Tobacco use disorder F17.200 Need for prophylactic vaccination and inoculation against varicella Z23 Family history of colon cancer Z80.0 Infected dental caries K02.9, K04.7 Megaloblastic anemia due to vitamin B12 deficiency D53.1 Acute bacterial sinusitis J01.90, B96.89 Encounter for smoking cessation counseling Z71.6 Cellulitis of right lower extremity L03.115 Deep vein thrombosis (DVT) of lower extremity ([facility]) I82.409 Leg swelling M79.89 Infestation by bed bug B88.8 Chronic pruritus L29.9 Isolation/Infection: Isolation Contact Patient Infection Status Infection Onset Added Last Indicated Last Indicated By Review Planned Expiration Resolved Resolved By MDRO (multi-drug resistant organism) 06/21/19 06/21/19 Penny Whitfield RN E. Coli urine 06/2019 Resolved COVID-19 (Rule Out) 10/08/20 10/09/20 10/08/20 COVID-19 (Ordered) 10/09/20 Rule- Out Test Resulted COVID-19 (Rule Out) 03/07/20 03/08/20 03/07/20 Covid-19 Ambulatory (Ordered) 03/09/20 Rule-Out TestResulted COVID-19 (Rule Out) 11/27/19 11/27/19 11/27/19 Covid-19 Ambulatory (Ordered) 11/29/19 Rule-Out TestResulted Nurse Assessment: Last Vital Signs: BP 104/62 Pulse 70 Temp 98.2 F (36.8 C) (Oral) Resp 16 Ht 5' 2 (1.575 m) Wt 255 lb 9 oz (115.9 kg) LMP 11/10/2013 SpO2 93% BMI 46.74 kg/m Last documented pain score (0-10 scale): Pain Level: 5 Last Weight: Wt Readings from Last 1 Encounters: 08/23/22 255 lb 9 oz (115.9 kg) Mental Status: oriented and alert IV Access: - None Nursing Mobility/ADLs: Walking Assisted Transfer Assisted Bathing Assisted Dressing Independent Toileting Independent Feeding Independent [employer] Driver Independent Med Delivery none Wound Care Documentation and Therapy: Incision 03/11/20 Mouth (Active) Number of days: 894 Elimination: Continence: Bowel: Yes Bladder: No Urinary Catheter: None Colostomy/Ileostomy/Ileal Conduit: No Date of Last BM: 08/23/2022 No intake or output data in the 24 hours ending 08/23/22 1006 No intake/output data recorded. Safety Concerns: None Impairments/Disabilities: Vision Nutrition Therapy: Current Nutrition Therapy: - Oral Diet: General Routes of Feeding: Oral Liquids: Thin Liquids Daily Fluid Restriction: no Last Modified Barium Swallow with Video (Video Swallowing Test): not done Treatments at the Time of Hospital Discharge: Respiratory Treatments: aerosols Oxygen Therapy: is not on home oxygen therapy. Ventilator: - No ventilator support Rehab Therapies: Physical Therapy and Occupational Therapy Weight Bearing Status/Restrictions: No weight bearing restrictions Other Medical Equipment (for information only, NOT a DME order): {EQUIPMENT:[id number]} Other Treatments: correction care and assessments Patient's personal belongings (please select all that are sent with patient): Glasses RN SIGNATURE: CASE MANAGEMENT/SOCIAL WORK SECTION Inpatient Status Date: 08-21-2022 Readmission Risk Assessment Score: Readmission Risk Risk of Unplanned Readmission: 18 Discharging to Facility/ Agency Name: [facility] Address: Phone: Fax: Dialysis Facility (if applicable) Name: Address: Dialysis Schedule: Phone: Fax: Automatic [employer]Matt[employer] signature: PHYSICIAN SECTION Prognosis: Good Condition at Discharge: Stable Rehab Potential (if transferring to Rehab): Good Recommended Labs or Other Treatments After Discharge: Follow-up with primary care physician in 1 to 2 weeks after discharge from rehab continue antibiotics for 7 days total Attempt to eradicate bedbugs from house Follow-up with podiatry outpatient, continue care for right toe Continue taking Eliquis for minimum of 6 months, discussed with primary care physician whether to continue lifelong or not Physician Certification: I certify the above information and transfer of Bharat Manzanares is necessary for the continuing treatment of the diagnosis listed and that she requires Home care for [id number] days. Update Admission H&P: No change in H&P PHYSICIAN SIGNATURE: * Attachments The following attachments cannot be sent through Care Everywhere. * DVT (Deep Vein Thrombosis) (Stateless) documented in this encounterBON [employer] Phone: [phone]) 368-185403-15-2023 Note [facility] Vascular Lower Extremities DVT Study Procedure Patient Name NATASHA Date of Study 08/21/2022 BHARAT Kirkland Date of 1965 Gender Female Age 57 year(s) Race Room Number 0321 Height: 62 inch, 157.48 cm Corporate ID [id number] Weight: 257 pounds, 116.6 kg # Patient Acct [id number] BSA: 2.13 m^2 BMI: 47.01 kg/m^2 # MR # [id number] Clinical Research Physician Phillip Hampton RVT Interpreting Physician Frederic Goff Referring Referring Physician Narendra Zendejas MD Nurse Practitioner Procedure Type of Study: Veins: Lower Extremities DVT Study, Venous Scan Lower Bilateral. Indications for Study:Increased pain and swelling. Patient Status:In Patient. Technical Quality:Limited visualization. Limitation reason:deep vessels, edema and body habitus, patient resisting compression. - Critical Result:Ciarra SALDANA notified at 10:38 a.m. from the vascular lab. . Conclusions Summary Right: Great saphenous acute thrombosis extending into the common femoral without occlusion of the common femoral. Recommend anticoagulation. Left: No evidence of deep or superficial venous thrombosis. Signature Findings: Right Impression: Left Impression: The right common femoral vein is The common femoral, femoral, partially compressible with homogenous popliteal and tibial veins echoes. demonstrate normal compressibility The distal external iliac vein has and augmentation. good color flow and doppler signals. Normal compressibility of the great The femoral, popliteal and tibial saphenous vein. veins demonstrate normal Normal compressibility of the small compressibility and augmentation. saphenous vein. The saphenofemoral junction and proximal through mid greater saphenous vein is non-compressible with absent color flow. Normal compressibility of the small saphenous vein. Risk Factors History + + + + !Diagnosis !Date !Comments ! + + + + !CHF ! ! ! + + + + !Other ! !cerebral palsy ! + + + + !Previous Scan !08/30/2021!venous-wnl ! + + + + - The patient's risk factor(s) include: obesity. Velocities are measured in cm/s ; Diameters are measured in cm Right Lower Extremities DVT Study Measurements Right 2D Measurements + + + + + !Location !Visualized!Compressibility!Thrombosis! + + + + + !Common Femoral !Yes !Partial !Homogenous! + + + + + !Prox Femoral !Yes !Yes !None ! + + + + + !Mid Femoral !Yes !Yes !None ! + + + + + !Dist Femoral !Yes !Yes !None ! + + + + + !Deep Femoral !No ! ! ! + + + + + !Popliteal !Yes !Yes !None ! + + + + + !Sapheno Femoral Junction !Yes !No !Homogenous! + + + + + !PTV !Ye (more content not included)...[facility] STV [id number] Hospital Discharge instructions* Instructions* Jed Conley, DO - 08/30/2021 Please get vaccinated against COVID-19 it is free, safe and it saves lives. Even if you have had Covid you can get it again and infect other people. The best way to protect yourself and others is with the vaccine. Covid will continue to mutate and we will have new and more serious variants until enough of the population is vaccinated You were seen and evaluated in the emergency department with a complaint of chronic right knee pain. Our evaluation showed no acute abnormalities requiring emergent intervention nor admission to the hospital. Please follow-up with your primary care physician. Call for an appointment to be seen within the next 1 to 2 days. If you do not have a primary care physician we have given you information on obtaining one. Please continue taking all prescribed medications. Please continue to socially distance, wear a mask, and wash your hands frequently. Please return to the emergency department immediately with any new or concerning symptoms including but not limited to any chest pain any fevers any inability to tolerate oral intake any severe abdominal pain any difficulty breathing any new rashes any sudden onset of any weakness severe fever unresponsive to home medications or anything else thatis new or concerning to you. If you continue to have worsening of your current symptoms return to the emergency department immediately for reevaluation. * Attachments The following attachments cannot be sent through Care Everywhere. * Arthritis (Stateless) * Knee Arthritis (Stateless) * Knee Arthritis: Exercises (Stateless) documented [facility] Phone: [phone] History of Present illness Narrative* Pieter Bridgette Fernandes, [facility] - 11/17/2020 11:15 AM EDT .Outpatient Anticoagulation Service - Apixaban (Eliquis) Management Initial Outpatient Visit - Started Eliquis therapy: 11/02/2020 Estimated duration of therapy: 3 months likley - first time clot provoked from catheter removal. Indication for therapy: Acute DVT - right upper arm. Patient states she had catheter/picc line removed on October 27 and was diagnosed with clot 1 week later. Any episodes of thrombosis in the past: None Prescribed Eliquis Dose: Starter Pack - patient brought medication and has been taking as prescribed Age: 55 Weight: 68.8 kg SCr: 0.75mg/dL on 10/11/20 Dose Appropriate: Yes. Hb: 11.3 g/dL on 10/11/20 Current Meds Reviewed: Yes. Drug Interactions Identified: None Patient taking medications as prescribed: Yes. Issues identified: None - patient concerned with running out of Eliquis but I let her know we will be able to refill 2 more months until her follow up appt with Dr. Baker. Counseling points included: 1. Indication for Apixaban: Viewed Living with Venous Thromboembolism (VTE) & Reducing the risk of deadly clots Video. 2. Explanation of Apixaban including purpose and mechanism of action 3. Importance of compliance 3. Dose and directions, including missed doses and timing of medication 4. Side effects - increase risk of bleeding & bruising, nausea 5. Potential interactions A. Avoid concomitant use with strong CY inhibitors (Ketoconazole, Ritonavir, Clarithromycin, Diltiazem, Erythromycin, Fluconazole, Verapamil) or strong CY inducers (Carbamazepine, Phenytoin, Rifampin, Paige's Wort) B. Grapefruit juice may increase levels/effects of Eliquis - use caution 6. Signs and symptoms of VTE and stroke reviewed 7. Contact prescriber when: A. Changes made to other medications B. Signs or symptoms of VTE or stroke C. Uncontrolled bleeding or unusual bruising Answered all medication-related questions and patient verbalized understanding. Patient has received first 30 days of medication free from functional consultant. Patient's cost for subsequent fills Eliquis is anticipated to be covered by insurance. No follow up appointment scheduled as patient will be seeing Dr. Baker in 2 months and will likely have therapy completed at that time. Discussed smoking cessation with patient for about 15 minutes - she has cut back from 1ppd to 4 cigarettes daily and plans to continue to cut back. Progress note routed to referring physicians office. Patient acknowledges working in consult agreement with pharmacist as referred by his/her physician. For Pharmacy Admin Tracking Only Intervention Detail: Refill(s) Provided Total # of Interventions Recommended: 1 Total # of Interventions Accepted: 1 Time Spent (min): 30 documented in this [employer] Phone: [phone]) 922-804806-03-2021 History of Present illness Narrative* A telephone visit (audio only) between the patient and the provider was utilized to provide this telehealth service. Verbal consent was requested and obtained from BHARAT MANZANARES on this date, 11/10/20, for a telehealth visit. This communication lasted 15 minutes. * Ms. Manzanares is s/p POEM on 10/25/20. She is tolerating a soft diet. She denies dysphagia or odynophagia. She has one episode of vomiting after eating a large meal. Since that episode, she has been eating smaller meals throughout the day, cutting up her food in small pieces and taking her time when she eats. She denies abdominal pain. She reports episodes of reflux and heartburn. She ran out of her PPI. I will send her prescription over to her pharmacy today. She states that she was seen in the EDafter she returned home and was diagnosed with a blood clot in her right arm where her PICC line was removed. She is taking Eliquis and is follow-up with vascular at a hospital in [place]. [address] [place] [address] Work Phone: [phone]) [phone] NoteSend Summary: Discharge Summary Providers: Provider RoleProvider Name AttendingMahesh Mcknight Note Recipients: Required, No Pcp, Discharge: Summary: Admission Date: .18-Oct-2020 10:55:00 Discharge Date: 27-Oct-2020 Attending Physician at Discharge: Mahesh Mcknight Admission Reason: Dysphagia(1) Final Discharge Diagnoses: Achalasia of esophagus Procedures: Date: 25-Oct-2020 14:59:00 Procedure Name: 1. per oral endoscopic myotomy (POEM) Condition at Discharge: Satisfactory Disposition at Discharge: .Home Vital Signs: T PRBPSpO2 Value36.9120100/6094% Date/Time10/27 8:0510/27 8:0510/27 8: 8:0510/27 8:05 Range(36.5C - 37.4C ) (60 - 75 ) (16 - 18 ) (83 - 95 )/ (55 - 64 ) (92% - 95% ) Highest temp of 37.4 C was recorded at 10/26 11:59 Date: Weight/Scale Type:Height: 21-Oct-2020 12:3760 kg 157.4 cm Physical Exam: Constitutional: Resting comfortable, no distress, alert and cooperative Eyes: EOM grossly intact, clear sclera Head/Neck: Normocephalic, atraumatic Respiratory/Thorax: Breathing comfortably on room air. No respiratory distress. Cardiovascular: No tachycardia. Gastrointestinal: Abdomen nondistended, soft, non-tender. Musculoskeletal: ROM intact in all 4 extremities Neurological: Awake, alert, oriented. Psychological: Appropriate mood and behavior Skin: Warm and dry Hospital Course: BHARAT MANZANARES is a 55 year old Female with a PMH significant for CHF, COPD, T2DM, hypothyroidism, and cerebral palsy who presented to the ED for chronic dysphagia and inability to tolerate solid foods, liquids, or medications. She was admitted to the hospital on 10/18. An upper GI series on 10/19 was significant for severe narrowing at GE junction without passage of contrast. Based on findings, patient was transported to [facility] on 10/21 for EGD with manometry and then transferred back to [facility] following procedure. Was found to be hypotensive early in hospitalization, responded well to IVF. Dr. Ramirez consulted for optimization. Was found to be bradycardic on telemetry overnight 10/19, recommended Echo for 10/20, suspecting increased vagal tone leading to achalasia and arrhythmia. Echo significant for EF 60%, no wall motion abnormalities. EKG on 10/19 significant for qtc 594, home haloperidol held, repeat EKG on 10/20 qtc 365. Additionally, TPN started on 10/20 after PICC placement on 10/19. POEM done on 10/[address] Mcknight. Verbal consent obtained from legal guardian, Jessica, for procedures - signed in chart. Esophogram on 10/26 negative for leak and diet was advanced to CLD. Patient tolerated CLD without issue and diet was advanced to full liquids. She has remained hemodynamically stable during her hospitalization and is stable for discharge home. Patient to be discharged home on full liquid diet for one week then to advance to soft diet until follow up appointment with Dr. Mcknight in 2 weeks. Her home Haloperidol is held due to prolonged QT while in hospital. Psychiatry was consulted and recommended discontinuing haloperidol until Ms. Manzanares is able to follow up with her home psychiatrist on 11/01. Nicole Deleon, DO Family Medicine PGY-1 Discharge Information: and Continuing Care: Lab Results - Pending: None Radiology Results - Pending: None Discharge Instructions: Activity: activity as tolerated. May shower.. May return to school/work. as tolerated May not drive while taking narcotics. No pushing, pulling, or lifting objects greater than 10 pounds for 4. Weight-bearing Instructions: full weight bearing. Nutrition/Diet: full liquids, Full liquid diet for 1 week following discharge from hospital Diet Consistency/Texture: soft, soft diet starting after 1 week of full liquids. To remain on soft diet until follow up visit with Dr. Mcknight Additional Orders: Additional Instructions: Stop taking Haloperidol. Follow up as scheduled with your psychiatrist to discuss dosage of haloperidol before restarting. Please take Fluconazole 400mg (2 tabs) daily for 12 days. Please use Nystatin Oral Rinse every 8 hours (or 3x daily) for 12 days. Please take Pantoprazole 40mg daily for the next 6 months. Full liquid diet for 1 week after discharge from hospital. Then transition to soft diet until follow up visit with Dr. Mcknight. Follow up as scheduled with psychiatry and Dr. Mcknight. Follow Up Appointments: Follow-Up Appointment 01: Physician/Dept/Service: Dr. Mcknight Reason for Referral: Surgical Follow Up - Virtual Call to Schedule in: 2 weeks Location: Virtual Follow Up Discharge Medications: Home Medication fluconazole 200 mg oral tablet - 2 tab(s) orally once a day for 12 days nystatin 100,000 units/mL oral suspension - 5 milliliter(s) orally every 8 hours pantoprazole 40 mg oral delayed release tablet - 1 tab(s) orally once a day for 6 months Fluticasone - Oxybutynin Chloride - Prashant (more content not included)...[facility]05-18-2021 NotePost Operative Note: PreOp Diagnosis: type 1 achalasia Post-Procedure Diagnosis: same Procedure: 1. per oral endoscopic myotomy (POEM) Surgeon: Dr Mahesh Mcknight Resident/Fellow/Other Pt Sitter: Dr Alison Dangelo, Dr Sj Hodges Anesthesia: GETA Estimated Blood Loss (mL): 2 Specimen: no Findings: stenotic LES widely patent and easily traversed at end of case, submucosal tunnel hemostatic Signature/Cosignature/Attestation: Note Completion: I am a:Resident/Fellow Attending AttestationI was present for the entire procedure Electronic Signatures: Alison Dangelo) (Signed 25-Oct-2020 15:00) Authored: Post Operative Note, Note Completion Mahesh Mcknight) (Signed 25-Oct-2020 15:49) Authored: Note Completion Co-Signer: Post Operative Note, Note Completion Last Updated: 25-Oct-2020 15:49 by Mahesh Mcknight)[facility]05-13-2021 NoteReferral Information: Consult requested by (Attending Name): Dr. Paez Reason: Psychiatric history and medication; prolonged Qtc interval History of Present Illness: Admission Reason: Dysphagia HPI: Patient is a 55 year old Female with psychiatric history of (unspecified) psychotic disorder and a PMH significant for achalasia, CHF, COPD, T2DM, hypothyroidism, and cerebral palsy who presented to the ED for dysphagia and inability to tolerate any PO intake. Patient reports that she has been unable to tolerate foods, liquids, and medications for years with a 150 lbs weight loss over the past 12 years. Psychiatry consulted to confirm psychiatric and medication history, and medication management in setting of prolonged Qtc interval secondary to IV haldol. Subjective: Patient explained that her parents drove her from [place] for her hospital admission for dysphagia. She confirmed that she has worked with her psychiatrist at [facility] since 2007 in [place], [place] after experiencing increased psychiatric concerns; was hospitalized at that time. Patient has been stabilized since then on haldol 2 mg liquid PO BID and Invega Trinza long-acting injectable (BARCLAY) 546 mg IM every 3 months; reported that her next dose is scheduled for November 01, 2020. Patient described explained that her psychiatric diagnosis is related to schizophrenia (though reportedly has never experienced any symptoms when criteria described by bond underwriter) and difficulties she sometimes experiences with verbal communication; which can lead to emotional frustrations. Per psychiatric review of symptoms, patient denied auditory or visual hallucinations; denied additional criteria for psychosis. Denied symptoms concerning for mood, depression, anhedonia, or sleep disturbance. Denied suicidal ideation, thoughts of harm to self or others. She reported trauma, but denied symptoms significant for PTSD. Patient denied history of current or prior alcohol or illicit drug use. Reported hopes to continue tobacco cessation. [facility]; has a dog. Described supportive living environment, friendships, health providers, and case monitor. Discussed plans to be followed by home health after discharge. Patient's awareness of hospital course and care is evident. Per collateral from patient's father, Dr. Manzanares and Jessica Pierce guardian: [phone], explained that she has been doing very well in recent years psychiatrically. She has significantly improved since she moved to a more supportive building years ago. Per her father, she has good friends and psychiatric care through [facility] in [place]. Left message for patient's provider in [facility] for psychiatric follow-up. Per collateral with patient's case monitor through [facility]; confirmed patient's diagnosis and that her next appointment for BARCLAY is November 01. Past Psychiatric History: Outpatient psychiatric care: [place], [place]; provider Dr. Yohana Suero (Erlinda Winston - Nurse) Inpatient psychiatric care: Two prior admissions, one in 2007 after reported increased stressors (non-specific) and once as a teenager Psychotropic medications: Currently stabilized on haldol 2 mg liquid PO BID and Invega Trinza 546 mg IM q3 months Suicidal ideation/attempts: Denies current/history of Firearms in household: denies Social History: Smoking Status: current some day smoker Alcohol Use: denies Drug Use: denies Social History: Lives at penit[facility]iary facility; has a dog. Described supportive living environment, friendships, health providers, and case monitor. 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 OARRS Review: OARRS checked: yes OARRS Comments: No report available Objective: Objective Information: T PRBPSpO2 [id number]% Date/Time10/20 6: 6: 6: 6: 6:04 Range(36.5C - 36.7C ) (40 - 47 ) (18 - 20 ) (80 - 112 )/ (49 - 63 ) (92% - 94% ) Mental Status Exam: General: Calm, in no acute distress Appearance: Female, appearing slightly older than stated age, dressed in hospital attire, glasses, head of bed elevated, using apparatus for breathing treatments. Attitude: Calm, engaged and communicative Behavior: Appropriate eye contact. Motor Activity: No agitation or retardation. No EPS/TD. Gait not assessed. Speech: Regular rate, rhythm, volume and tone, spontaneous, fluent. Mood: good Affect: Appropriate with full range. Congruent to mood. Thought Process: Organized, linear, goal directed. Associations are logical. Thought Content: Does not endorse suicidal or homicidal ideation, no delusions elicited. Thought Perception: Does not endorse auditory or visual hallucinations, does not appear to be responding to hallucinatory stimuli. (more content not included)...[facility]05-11-2021 NoteHistory of Present Illness: /Lactating: Are You no (1) Are You Currently Breastfeedingno (1) HPI: BHARAT MANZANARES is a 55 year old Female with a PMH significant for CHF, COPD, T2DM, hypothyroidism, and cerebral palsy who presented to the ED for dysphagia and inability to tolerate any PO intake. Patient reports that she has been unable to tolerate foods, liquids, and medications for years with a 150 lbs weight loss over the past 12 years. She denies any specific trigger for her presentation today, except that she felt she may be dehydrated. She reported she was seen at an ED in [place] for dehydration a few weeks ago, at that time she was given IV fluids, but was not admitted for further work up or evaluation. Bharat states that she has previously seen GI and was told she has acalasia, however there is no record of this available. She saw Dr. Mcknight in August 2020 for the same complaint, who recommended endoscopy with manometry at that time. It was being coordinated as to whether the procedure could be completed in [place] or in [place]. She presented to today for further evaluation of her dysphagia. PMH: CHF, COPD, T2Dm, hypothyroidism, and cerebral palsy Surgical Hx: Denies FHx: CHF (father) Medications: Pt is unsure of current medications, however on outpatient note medications listed are: Proair HFA, Advair, duonebs, atrovastatin, haloperidol, levothyroxine, myrbetriq, metformin, oxybutynin Allergies: histamines Social: current every day smoker (5-20 cigarettes), denies EtOH or drug use Comorbidities: Comorbid Conditionsdiabetes Diabtetes TypeType 2 Insulin Dependentno DM Acuity or Statusunknown DM Complicationsunknown Allergies: NKDA: Dust: Unknown Medications Prior to Admission: Admission Medication Reconciliation has not been completed for this patient. Review of Systems: Constitutional: POSITIVE: Weight Loss; NEGATIVE: Fever, Chills ENMT: NEGATIVE: Nasal Discharge, Nasal Congestion, Mouth Pain, Throat Pain Respiratory: POSITIVE: Dry Cough; NEGATIVE: Productive Cough, Hemoptysis Cardiac: NEGATIVE: Chest Pain, Palpitations, Syncope Gastrointestinal: POSITIVE: Vomiting; NEGATIVE: Diarrhea, Constipation, Abdominal Pain Genitourinary: NEGATIVE: Dysuria, Frequency Musculoskeletal: NEGATIVE: Pain, Swelling Neurological: NEGATIVE: Dizziness, Confusion Psychiatric: NEGATIVE: Anxiety Skin: NEGATIVE: Rash Objective: Objective Information: T PRBPSpO2 [id number]% Date/Time10/18 11:0510/18 17: 17: 17: 17:11 Range(36.1C - 36.1C ) (49 - 61 ) (16 - 20 ) (95 - 103 )/ (47 - 62 ) (93% - 94% ) Physical Exam by System: Constitutional: Well developed, awake/alert/oriented x3, no distress, alert and cooperative Eyes: EOMI, clear sclera ENMT: mucous membranes moist, no apparent injury Head/Neck: Normocephalic, atraumatic, neck supple, no apparent injury Respiratory/Thorax: Breathing comfortably on room air. No respiratory distress. Cardiovascular: No tachycardia. Gastrointestinal: Nondistended, soft, non-tender, no rebound tenderness Musculoskeletal: ROM intact in all 4 extremities Extremities: Bilateral LE edema +1 pitting Neurological: No focal deficits, no facial asymmetry, no slurring of speech Psychological: Appropriate mood Skin: Warm and dry, no lesions, no rashes Medications: Medications: Continuous Medications No continuous medications are active Scheduled Medications 1. Albuterol 2.5mg - Ipratropium 0.5 mg/ 3mL Neb Soln: 3 mL Inhalation Once PRN Medications No PRN medications are active Recent Lab Results: Results: I have reviewed these laboratory results: Complete Blood Count + Differential 18-Oct-2020 12:46:00 ResultValue White Blood Cell Count 9.9 Nucleated Erythrocyte Count 0.0 Red Blood Cell Count 4.19 HGB 11.9 L HCT 35.2 L MCV 84 MCHC 33.8 PLT 237 RDW-CV 15.4 H Neutrophil % 79.7 Immature Granulocytes % 0.9 Lymphocyte % 14.6 Monocyte % 3.7 Eosinophil % 0.8 Basophil % 0.3 Neutrophil Count 7.88 H Lymphocyte Count 1.44 Monocyte Count 0.37 Eosinophil Count 0.08 Basophil Count 0.03 Comprehensive Metabolic Panel 18-Oct-2020 12:46:00 ResultValue Glucose, Serum 78 NA 141 K 3.1 L CL 101 Bicarbonate, Serum 32 Anion Gap, Serum 11 BUN 21 CREAT 0.79 GFR-Non >60 GFR- >60 Calcium, Serum 8.5 L ALB 3.0 L ALKP 88 T Pro 5.8 L T Bili 0.5 Alanine Aminotransferase, Serum 6 L Aspartate Transaminase, Serum 9 TSH with Reflex to Free T4 if Abnormal 18-Oct-2020 12:46:00 ResultValue Thyroid Stimulating Hormone, Serum 15.26 H Magnesium, Serum 18-Oct-2020 12:46:00 ResultValue Magnesium, Serum 1.71 Phosphorus, Serum 1 (more content not included)...[facility] 09-29-2020 Hospital Discharge instructions* Instructions* Penny Rodgers, DO - 09/29/2020 Follow-up with your primary care provider regarding today's visit to the emergency department. Please return to the emergency department if you are unable to keep down any food, please continue to try to drink and eat your food slowly with small bites. Please follow-up with your primary care, if you begin to have any chest pain, shortness of breat please come back. documented in this [facility] Work Phone: consult note Author Yael Norton [facility] Note Date/Time November 06, 2024 9:22a [facility] Medical Records Department [address] [place] [address] Anesthesia Postop Eval I 11/06/24920 MR#: [id number] Acct: [id number] Name: BHARAT MANZANARES Rep #:[id number] : 1965 59 From: Yael Marvin CRNA PCP: Ragini Lentz MD Status:[facility] Y Race: C Location: [place] [address] Anesthesia: Postop Eval I Current Vital Signs Temperature: 97.1 F Pulse Rate: 73 Blood Pressure: 88/46 Respiratory Rate: 18 Pulse Ox: 93 Assessment Airway patent: Yes Spontaneous unlabored respirations: Yes nausea: No Vomiting: No Anesthesia Complication: No Fluid Hydration Crystalloid volume administer (ml): 300 Total IV fluid infused: 300 Progress Note Anesthesia document: Postop Eval 1 completed: Yes 11/06/24921 <Electronically signed by Yael christianson CRNA> Date _ Yael Marvin 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 Signature: Date CC: ~ Signed [facility] Work Phone: Evaluation + Plan note Future Appointments Appointment Date:11/12/2024 01:00:00 PM Scheduled Provider:RADHA BASURTO Location:[facility] Appointment Type:[facility] Evaluation note* Diagnosis Dehydration- Primary Vomiting without nausea, intractability of vomiting not specified, unspecified vomiting type documented in this encounter [facility] [employer] Phone: [email or web address] note* Diagnosis COVID-19 ruled out by laboratory testing- Primary documented in this encounter [facility] [employer] Phone: [email or web address] note* Diagnosis Chronic obstructive pulmonary disease, unspecified COPD type (HCC) documented in this encounter [facility] [employer] Phone: [email or web address] note* Psychological: Appropriate mood and behaviorNeurological: Awake, alert, oriented.Musculoskeletal: ROM intact in all 4 extremitiesGastrointestinal: Abdomen nondistended, soft, non-tender.Cardiovascular: No tachycardia.Respiratory/Thorax: Breathing comfortably on room air. No respiratory distress.Head/Neck: Normocephalic, atraumaticEyes: EOM grossly intact, clear scleraSkin: Warm and dryConstitution al: Resting comfortable, no distress, alert and cooperative [facility]* Diagnosis Arm DVT (deep venous thromboembolism), acute, right (HCC)- Primary documented in this encounter [facility] [employer] Phone: [email or web address] note* Diagnosis Personal history of tobacco use Personal history of tobacco use, presenting hazards to health documented in this encounter [facility] [employer] Phone: [email or web address] note* Diagnosis Arthritis of right knee- Primary Unspecified arthropathy, lower leg documented in this encounter [facility] [employer] Phone: evaluation note* Diagnosis Dysuria documented in this encounter [facility] [employer] Phone: evaluation note* Diagnosis Achalasia- Primary Achalasia and cardiospasm Dyspepsia Dyspepsia and other specified disorders of function of stomach documented in this encounter [facility] [employer] Phone: [email or web address] note* Diagnosis Dysphagia, unspecified type documented in this encounter [facility] [employer] Phone: [email or web address] note* Diagnosis Osteoarthritis of right knee, unspecified osteoarthritis type- Primary documented in this encounter [facility] [employer] Phone: evaluation note* Diagnosis Cellulitis of right lower extremity- Primary Cellulitis and abscess of leg, except foot Leg swelling Swelling of limb Elevated d-dimer Abnormal coagulation profile Deep vein thrombosis (DVT) of lower extremity (HCC) OAB (overactive bladder) Hypertonicity of bladder Acquired hypothyroidism Unspecified hypothyroidism Type 2 diabetes mellitus without complication (HCC) Hyperlipidemia Other and unspecified hyperlipidemia Morbid obesity (HCC) Morbid obesity Leg swelling Swelling of limb Infestation by bed bug Other specified infestations Chronic pruritus Unspecified pruritic disorder documented in this encounter [employer] Phone: evaluation note* Diagnosis Failure to thrive in adult- Primary Adult failure to thrive Failure to thrive in adult Adult failure to thrive Dizziness Dizziness and giddiness Unable to care for self documented in this encounter [employer] Phone: evaluation note* Diagnosis Fever and chills- Primary Fever, unspecified Fever and chills Fever, unspecified documented in this encounter [facility] note* Diagnosis Cerebral palsy, unspecified type (HCC)- Primary Controlled type 2 diabetes mellitus without complication, with long-term current use of insulin (HCC) Intractable migraine without status migrainosus, unspecified migraine type Hypothyroidism, unspecified type Benign essential HTN Essential hypertension, benign Schizophrenia, unspecified type (HCC) * Assessment & Plan Note - Samantha Forman - 06/19/2024 8:58 PM ESTAssociated Problem(s): Benign essential HTN Monitor BP Monitor labs Monitor edema Respiratory congestion * Assessment & Plan Note - Samantha Forman - 06/19/2024 8:54 PM ESTAssociated Problem(s): Schizophrenia (HCC) Lurasidone Mental health to follow Multiple somatic complaints Monitor environment and potential stressors * Assessment & Plan Note - Samantha Forman - 06/19/2024 8:52 PM ESTAssociated Problem(s): Hypothyroidism Monitor TSH Levothyroxine Monitor symptoms of hypo/hyperglycemia * Assessment & Plan Note - Samantha Forman - 06/19/2024 8:50 PM ESTAssociated Problem(s): Controlled type 2 diabetes mellitus without complication, with long-term current use of insulin (HCC) Monitor BP Adjusted insulin Sliding scale - lispro Lantus insulin bid Gabapentin - neuropathy Diabetic shoes -referral made Dapagliflozin Dietitian to visit Need to limit high carbohydrate foods * Assessment & Plan Note - Samantha Foramn - 06/19/2024 8:47 PM ESTAssociated Problem(s): Intractable migraine without status migrainosus Reports multiple migraines Requests to use zolmitriptan Reports that zolmitriptan has been effective in past Recommend to manage stress Is requesting therapy- requisition sent Advise to limit caffeine food, coffee, chocolate Dietitian to visit with her Discussed stress management techniques * Assessment & Plan Note - Samantha Forman - 06/19/2024 8:42 PM ESTAssociated Problem(s): Cerebral palsy (HCC) Reports intellectual disability [facility] Diagnosis Cerebral palsy, unspecified type (HCC)- Primary Controlled type 2 diabetes mellitus without complication, with long-term current use of insulin (HCC) Intractable migraine without status migrainosus, unspecified migraine type Hypothyroidism, unspecified type Benign essential HTN Essential hypertension, benign Schizophrenia, unspecified type (HCC) Cerebral palsy, unspecified type (HCC)- Primary Intractable migraine without status migrainosus, unspecified migraine type Benign essential HTN Essential hypertension, benign Controlled type 2 diabetes mellitus without complication, with long-term current use of insulin (HCC) Schizophrenia, unspecified type (HCC) Hypothyroidism, unspecified type * Assessment & Plan Note - Samantha Forman - 06/27/2024 12:38 PM ESTAssociated Problem(s): Hypothyroidism Monitor TSH Levothyroxine Monitor symptoms of hypo/hyperglycemia * Assessment & Plan Note - Samantha Forman - 06/27/2024 12:38 PM ESTAssociated Problem(s): Schizophrenia ([facility]) Lurasidone Mental health to follow Multiple somatic complaints Monitor environment and potential stressors * Assessment & Plan Note - Samantha Forman - 06/27/2024 12:37 PM ESTAssociated Problem(s): Controlled type 2 diabetes mellitus without complication, with long-term current use of insulin ([facility]) Monitor BS Continues to require Sliding scale - lispro Lantus insulin bid Gabapentin - neuropathy Diabetic shoes -referral made Dapagliflozin Dietitian to visit Need to limit high carbohydrate foods * Assessment & Plan Note - Samanhta Forman - 06/27/2024 12:30 PM ESTAssociated Problem(s): Benign essential HTN Monitor BP Monitor labs Increased dependent edema Systolic BP - 141/78 Will add lasix Lungs clear * Assessment & Plan Note - Samantha Forman - 06/27/2024 12:27 PM ESTAssociated Problem(s): Intractable migraine without status migrainosus Reports multiple migraines Reports that zolmitriptan is helping Reports that her migraines are triggered by the weather Advise to limit caffeine food, coffee, chocolate Dietitian to visit with her Reinforced stress management techniques * Assessment & Plan Note - Samantha Forman - 06/27/2024 12:25 PM ESTAssociated Problem(s): Cerebral palsy (HCC) Reports intellectual disability documented in this encounter [facility] note* Diagnosis Cerebral palsy, unspecified type (HCC)- Primary Controlled type 2 diabetes mellitus without complication, with long-term current use of insulin (HCC) Intractable migraine without status migrainosus, unspecified migraine type Hypothyroidism, unspecified type Benign essential HTN Essential hypertension, benign Schizophrenia, unspecified type (HCC) Cerebral palsy, unspecified type (HCC)- Primary Intractable migraine without status migrainosus, unspecified migraine type Benign essential HTN Essential hypertension, benign Controlled type 2 diabetes mellitus without complication, with long-term current use of insulin (HCC) Schizophrenia, unspecified type (HCC) Hypothyroidism, unspecified type Schizophrenia, unspecified type (HCC)- Primary Controlled type 2 diabetes mellitus without complication, with long-term current use of insulin (HCC) Benign essential HTN Essential hypertension, benign Intractable migraine without status migrainosus, unspecified migraine type Cerebral palsy, unspecified type (HCC) Hypothyroidism, unspecified type Cerebral palsy, unspecified type (HCC)- Primary Benign essential HTN Essential hypertension, benign Controlled type 2 diabetes mellitus without complication, with long-term current use of insulin (HCC) Hypothyroidism, unspecified type Schizophrenia, unspecified type (HCC) * Assessment & Plan Note - Samantha Forman APRN.[facility] - 07/10/2024 6:56 PM EST Associated Problem(s): Schizophrenia (HCC) Lurasidone Mental health to follow Multiple somatic complaints Monitor environment and potential stressors Has refused antipsychotic Mental health notified Is concerned about weight gain * Assessment & Plan Note - Samantha Forman APRN.CNP - 07/10/2024 6:55 PM EST Associated Problem(s): Hypothyroidism Monitor TSH Levothyroxine Monitor symptoms of hypo/hyperglycemia * Assessment & Plan Note - Samantha Forman APRN.CNP - 07/10/2024 6:55 PM EST Associated Problem(s): Controlled type 2 diabetes mellitus without complication, with long-term current use of insulin (HCC) Monitor BS Continues to require Sliding scale - lispro Lantus insulin bid, insulin adjusted Gabapentin - neuropathy Diabetic shoes -referral made Dapagliflozin Dietitian to visit - to help with making good food choices Need to limit high carbohydrate foods Is concerned about weight gain Advised that she needs to be active to burn calories Therapy referral Encourage activity- walking * Assessment & Plan Note - Samantha Forman APRN.CNP - 07/10/2024 6:55 PM EST Associated Problem(s): Benign essential HTN Monitor BP Monitor labs Increased dependent edema Lasix added Lungs clear * Assessment & Plan Note - Samantha Forman APRN.CNP - 07/10/2024 6:55 PM EST Associated Problem(s): Cerebral palsy (HCC) Reports intellectual disability documented in this encounter [facility] note* Diagnosis Cerebral palsy, unspecified type (HCC)- Primary Controlled type 2 diabetes mellitus without complication, with long-term current use of insulin (HCC) Intractable migraine without status migrainosus, unspecified migraine type Hypothyroidism, unspecified type Benign essential HTN Essential hypertension, benign Schizophrenia, unspecified type (HCC) Cerebral palsy, unspecified type (HCC)- Primary Intractable migraine without status migrainosus, unspecified migraine type Benign essential HTN Essential hypertension, benign Controlled type 2 diabetes mellitus without complication, with long-term current use of insulin (HCC) Schizophrenia, unspecified type (HCC) Hypothyroidism, unspecified type Schizophrenia, unspecified type (HCC)- Primary Controlled type 2 diabetes mellitus without complication, with long-term current use of insulin (HCC) Benign essential HTN Essential hypertension, benign Intractable migraine without status migrainosus, unspecified migraine type Cerebral palsy, unspecified type (HCC) Hypothyroidism, unspecified type Cerebral palsy, unspecified type (HCC)- Primary Benign essential HTN Essential hypertension, benign Controlled type 2 diabetes mellitus without complication, with long-term current use of insulin (HCC) Hypothyroidism, unspecified type Schizophrenia, unspecified type (HCC) Cerebral palsy, unspecified type (HCC)- Primary Intractable migraine without status migrainosus, unspecified migraine type Benign essential HTN Essential hypertension, benign Hypothyroidism, unspecified type Controlled type 2 diabetes mellitus without complication, with long-term current use of insulin (HCC) Schizophrenia, unspecified type (HCC) * Assessment & Plan Note - Samantha Forman APRN.[employer] - 07/14/2024 7:13 PM EST Associated Problem(s): Schizophrenia (HCC) Lurasidone Mental health to follow Multiple somatic complaints Monitor environment and potential stressors Has refused antipsychotic Mental health notified Is concerned about weight gain * Assessment & Plan Note - Samantha Forman APRN.EBER - 07/14/2024 7:12 PM EST Associated Problem(s): Controlled type 2 diabetes mellitus without complication, with long-term current use of insulin (HCC) Monitor BS Continues to require Sliding scale - lispro Lantus insulin bid, insulin adjusted Gabapentin - neuropathy Diabetic shoes -referral made Dapagliflozin Dietitian to visit - to help with making good food choices Need to limit high carbohydrate foods Is concerned about weight gain Advised that she needs to be active to burn calories Therapy referral Encourage activity- walking * Assessment & Plan Note - Samantha Forman APRN.CNP - 07/14/2024 7:12 PM EST Associated Problem(s): Hypothyroidism Monitor TSH Levothyroxine Monitor symptoms of hypo/hyperglycemia * Assessment & Plan Note - Samantha Forman APRN.CNP - 07/14/2024 7:12 PM EST Associated Problem(s): Benign essential HTN Monitor BP Monitor labs Increased dependent edema Lasix added Lungs clear * Assessment & Plan Note - Samantha Forman APRN.CNP - 07/14/2024 7:12 PM EST Associated Problem(s): Intractable migraine without status migrainosus Reports multiple migraines Reports that zolmitriptan is helping Reports that her migraines are triggered by the weather Advise to limit caffeine food, coffee, chocolate Dietitian to visit with her Reinforced stress management techniques Currently denies any headache- * Assessment & Plan Note - Samantha Forman APRN.CNP - 07/14/2024 7:12 PM EST Associated Problem(s): Cerebral palsy (HCC) Reports intellectual disability [facility] Diagnosis Cerebral palsy, unspecified type (HCC)- Primary Controlled type 2 diabetes mellitus without complication, with long-term current use of insulin (HCC) Intractable migraine without status migrainosus, unspecified migraine type Hypothyroidism, unspecified type Benign essential HTN Essential hypertension, benign Schizophrenia, unspecified type (HCC) Cerebral palsy, unspecified type (HCC)- Primary Intractable migraine without status migrainosus, unspecified migraine type Benign essential HTN Essential hypertension, benign Controlled type 2 diabetes mellitus without complication, with long-term current use of insulin (HCC) Schizophrenia, unspecified type (HCC) Hypothyroidism, unspecified type Schizophrenia, unspecified type (HCC)- Primary Controlled type 2 diabetes mellitus without complication, with long-term current use of insulin (HCC) Benign essential HTN Essential hypertension, benign Intractable migraine without status migrainosus, unspecified migraine type Cerebral palsy, unspecified type (HCC) Hypothyroidism, unspecified type Cerebral palsy, unspecified type (HCC)- Primary Benign essential HTN Essential hypertension, benign Controlled type 2 diabetes mellitus without complication, with long-term current use of insulin (HCC) Hypothyroidism, unspecified type Schizophrenia, unspecified type (HCC) Cerebral palsy, unspecified type (HCC)- Primary Intractable migraine without status migrainosus, unspecified migraine type Benign essential HTN Essential hypertension, benign Hypothyroidism, unspecified type Controlled type 2 diabetes mellitus without complication, with long-term current use of insulin (HCC) Schizophrenia, unspecified type (HCC) Intractable migraine without status migrainosus, unspecified migraine type- Primary Benign essential HTN Essential hypertension, benign Hypothyroidism, unspecified type Controlled type 2 diabetes mellitus without complication, with long-term current use of insulin (HCC) Schizophrenia, unspecified type (HCC) * Assessment & Plan Note - Samantha Forman APRN.CNP - 08/07/2024 8:09 PM EST Associated Problem(s): Schizophrenia (HCC) Lurasidone Mental health to follow Multiple somatic complaints Monitor environment and potential stressors * Assessment & Plan Note - Samantha Forman APRN.CNP - 08/07/2024 8:09 PM EST Associated Problem(s): Controlled type 2 diabetes mellitus without complication, with long-term current use of insulin (HCC) Monitor BS Continues to require Sliding scale - lispro Lantus insulin bid, insulin adjusted Will add Trulicity for improved glycemic control Gabapentin - neuropathy Dapagliflozin Is concerned about weight gain Advised that she needs to be active to burn calories Therapy referral Encourage activity- walking Dietitian continues to monitor * Assessment & Plan Note - Samantha Forman APRN.EBER - 08/07/2024 8:07 PM EST Associated Problem(s): Hypothyroidism Monitor TSH Levothyroxine Monitor symptoms of hypo/hyperglycemia * Assessment & Plan Note - Samantha Forman APRN.CNP - 08/07/2024 8:07 PM EST Associated Problem(s): Benign essential HTN Monitor BP Monitor labs Remains with dependent edema Lasix Diet change to low salt diet Lungs clear * Assessment & Plan Note - Samantha Forman APRN.CNP - 08/07/2024 8:06 PM EST Associated Problem(s): Intractable migraine without status migrainosus Reports multiple migraines Reports that zolmitriptan dose is not effective - is requesting increased dose Reports that her migraines are triggered by the weather Advise to limit caffeine food, coffee, chocolate Dietitian to visit with her Reinforced stress management techniques [facility] Johana Varela [facility] Note Date/Time November 06, 2024 8:07a mark [facility] Medical Records Department [address] [place] [address] History & Physical Exam 11/06/24 0805 MR#: [id number] Acct: [id number] Name: BHARAT MANZANARES Rep #:[id number] : 1965 59 From: Johana Varela MD PCP: Ragini Lentz MD Status:[facility] Location: [place] [address] HPI - General General Date of Admission: 11/06/24 Date of Service: 11/06/24 Chief Complaint: diarrhea HPI Narrative The patient is a 59-year-old female who is being seen today for colonoscopy. She states that she has been having diarrhea for many many years. She resides in a local [facility]. The treating physician has advised her to get a colonoscopy. She believes that his sister had colon polyps. No family history of colon cancer. She denies any blood or tarry stools [facility] Medical History Overactive bladder GERD (gastroesophageal reflux disease) Hypothyroidism Schizophrenia HTN (hypertension) Polyarthritis Hyperlipidemia Dysphagia Heart failure Diabetes COPD (chronic obstructive pulmonary disease) Depression Anxiety Cerebral palsy Home Medications ?Medication ?Instructions ?Recorded ?Last Taken ?Type apixaban 2.5 mg tablet 2.5 mg PO BID 10/15/24 Unkno wn History cetirizine 10 mg capsule (Zyrtec) 10 mg PO QDAY Unknown History dapagliflozin propanediol 10 mg 10 mg PO QAM 10/15/24 Unknown History tablet dulaglutide 1.5 mg/0.5 mL 1.5 mg subcut QWEEK 10/15/24 Unknown History subcutaneous pen injector (Trulicity) dulaglutide 3 mg/0.5 mL 3 mg subcut QWEEK 10/15/24 U nknown History subcutaneous pen injector (Trulicity) famotidine 20 mg tablet 20 mg PO QDAY 10/15/24 Unkno wn History fluconazole 100 mg tablet 150 mg PO QDAY 10/15/24 Unkn own History (Diflucan) fluticasone propionate 50 1 spray intranasal QDAY 02/01 Unknown History mcg/actuation nasal spray,suspension (Flonase Allergy Relief) furosemide 20 mg tablet (Lasix) 20 mg PO QAM 10/15/24 Unknown History gabapentin 300 mg capsule 300 mg PO TID 10/15/24 Unkno wn History insulin glargine 100 unit/mL (3 18 unit subcut QPM 02/01 Unknown History mL) subcutaneous pen (Lantus Solostar U-100 Insulin) insulin glargine 100 unit/mL 24 unit subcut QAM Unknown History subcutaneous solution (Lantus U-100 Insulin) insulin lispro 100 unit/mL 1 sliding scale dose subcut 10/15/24 Unknown History subcutaneous pen (Humalog KwikPen USEASDIRECTD (U-100) Insulin) levothyroxine 137 mcg capsule 137 mcg PO QDAY 10/15/24 Unknown History mirabegron 50 mg tablet,extended 50 mg PO QDAY 5 Unknown History release 24 hr (Myrbetriq) topiramate 25 mg tablet (Topamax) 25 mg PO QDAY Unknown History ubrogepant 100 mg tablet 100 mg PO ONCE 10/15/24 Unkn own History acetaminophen 325 mg capsule 650 mg PO Q4H PRN fever o r pain 11/06/24 Unknown History cephalexin 500 mg capsule 500 mg PO TID 11/06/24 Unkno wn History cholecalciferol (vitamin D3) 125 5,000 unit PO DAILY 0 11/06/24 Unknown History mcg (5,000 unit) tablet (Vitamin D3) diclofenac sodium 1 % topical gel 4.5 inch topical BID 11/06/24 Unknown History nystatin 100,000 unit/gram topical 1 applic topical DA JEN 11/06/24 Unknown History powder (Nystop) pregabalin 75 mg capsule (Lyrica) 75 mg PO QHS 5 Unknown History zolmitriptan 5 mg disintegrating 5 mg PO Q4H PRN PRN m igraine 11/06/24 Unknown History tablet headache Allergy/AdvReac Type Severity Reaction Status Date / Time No Known Allergies Allergy Unverified 10/15/24 13:34 Social History Smoking Status: Former smoker Vital Signs Vital Signs Vital Signs: 11/06/24 07:19 11/06/24 07:19 11/06/24 07:54 Temperature 98.0 F 98.0 F Temperature Source Temporal Pulse Rate 77 77 Respiratory Rate 18 18 Respiratory Pattern Normal Blood Pressure 119/72 119/72 Blood Pressure Mean 87 Blood Pressure Source Monitor Blood Pressure Position Sitting Blood Pressure Location Right Forearm Pulse Ox 95 95 Oxygen Delivery Method Room Air Room Air Weight Weight: 292 lb Body Mass Index (BMI) 47.1 Physical Exam Const alert, oriented x3 and no apparent distress Results Lab / Micro Data Labs: Laboratory Results - last 24 hr 11/06/24 07:00: POC Glucose 176 H 11/06/24 08 <Electronically signed by Johana Varela MD> Cosigner Signature (if applicable): CC: Ragini Lentz MD; Dr. Johana Varela MD~ Signed ADDENDUM by Dr. Johana Varela MD on 11/06/24 at 0807 Addendum colonoscopy today 11/06/24 08<Electronically signed by Johana Varela MD> Cosigner Signature (if applicable): cc: Ragini Lentz MD; Dr. Johana Varela MD ~* Signed [facility] Work Phone: Hospital course Narrative No data available for this section [facility] Hospital Discharge instructions* Activity:activity as tolerated. May shower. May return to school/work as tolerated Instructions:. May not drive while taking narcotics. No pushing, pulling, or lifting objects greater than 10 pounds for 4. Weight-bearing Instructions: full weight bearing. * Additional Orders:Additional Instructions: Stop taking Haloperidol. Follow up as scheduled with your psychiatrist to discuss dosage of haloperidol before restarting. Please take Fluconazole 400mg (2 tabs) daily for 12 days.Please use Nystatin Oral Rinse every 8 hours (or 3x daily) for 12 days.Please take Pantoprazole 40mg daily for the next 6 months.Full liquid diet for 1 week after discharge from hospital. Then transition to soft diet until follow up visit with Dr. Mcknight. Follow up as scheduled with psychiatry and Dr. Mcknight. * Call Provider If:Breathing harder than normal or having retractions. Temperature is greater than 102 degrees. Chills. Acting very sleepy and difficult to awaken. Vomiting (throwing up) and not able to eat or drink for 12 hours. Any new concerning symptoms. * Follow Up Appointment 1:Physician/Dept/Service: Dr. Rincon for Referral: Surgical Follow Up - VirtualCall to Schedule in: 2 weeksLocation: Virtual Follow UpPhone Number: [phone]: Please call Dr. Mcknight' office to schedule a virtual follow up visit in 2 weeks. [facility] Attachments The following attachments cannot be sent through Care Everywhere. * DVT (Deep Vein Thrombosis): General Info (Stateless) [facility] Phone: Hospital Discharge instructions* Attachments The following attachments cannot be sent through Care Everywhere. * Achalasia: General Info (Stateless) * Dyspepsia (Stateless) documented in this encounterS[facility]D Phone: Hospital Discharge instructions* Instructions* Rachid Giron MD - 09/08/2021 Follow-up with your PCP for continued management of your osteoarthritis. Be discharged Tylenol and ibuprofen for pain control documented in this encounter[facility] Phone: InstructionsNot on filedocumented in this encounter [facility] on filedocumented in this encounter [facility]ructionsNot on filedocumented in this encounter [facility] SystemProgress note Author Penny Sotelo [facility] Note Date/Time December 02, 2024 11:2 0am [facility] Gastroenterology [address] [place] [address] OFFICE VISIT Date of Service: 12/02/24 MR#: [id number] Acct: [id number] Name: BHARAT MANZANARES Rep #: [id number] : 1965 Provider: PADDY Sotelo Age/Sex: 59/F Location: [facility] Status: Signed Intake Vital Signs 11/06/24 07:19 12/02/24 11:13 Height 5 ft 6 in 5 ft 6 in BP 154/81 H Temp 97.5 F L Temp Source Temporal Pulse Oximetry (%) 95 Oxygen Delivery Method room air Intake Visit Reasons: Gastroesophageal reflux disease (GERD) Chief Complaint: fecal incontinence Medical Office Clerk Required: No Accompanied by: Caregiver Is patient in pain?: No Allergies No Known Allergies Allergy (Unverified 12/02/24 10:45) Medications ?Medication ?Instructions ?Recorded ?Confirmed ?Type apixaban 2.5 mg tablet 2.5 mg PO BID 10/15/2412/02 History dapagliflozin propanediol 10 mg 10 mg PO QAM 10/15/24 12/02/24 History tablet famotidine 20 mg tablet 20 mg PO QDAY 10/15/2412/02 History fluticasone propionate 50 1 spray intranasal QDAY 02/0112/02/24 History mcg/actuation nasal spray,suspension (Flonase Allergy Relief) gabapentin 300 mg capsule 300 mg PO TID 10/15/2412/02 History insulin glargine 100 unit/mL (3 18 unit subcut QPM 02/0112/02/24 History mL) subcutaneous pen (Lantus Solostar U-100 Insulin) insulin glargine 100 unit/mL 24 unit subcut QAM 12/02/24 History subcutaneous solution (Lantus U-100 Insulin) insulin lispro 100 unit/mL 1 sliding scale dose subcut 10/15/24 12/02/24 History subcutaneous pen (Humalog KwikPen USEASDIRECTD (U-100) Insulin) levothyroxine 137 mcg capsule 137 mcg PO QDAY 10/15/24 12/02/24 History mirabegron 50 mg tablet,extended 50 mg PO QDAY 5 12/02/24 History release 24 hr (Myrbetriq) topiramate 25 mg tablet (Topamax) 25 mg PO QDAY 12/02/24 History ubrogepant 100 mg tablet 100 mg PO ONCE 10/15/2411/09 History acetaminophen 325 mg capsule 650 mg PO Q4H PRN fever o r pain 11/06/24 12/02/24 History nystatin 100,000 unit/gram topical 1 applic topical DA JEN 11/06/24 12/02/24 History powder (Nystop) zolmitriptan 5 mg disintegrating 5 mg PO Q4H PRN PRN m igraine 11/06/24 12/02/24 History tablet headache cetirizine 10 mg capsule (Zyrtec) 10 mg PO QDAY PRN 12/02/24 History fluconazole 150 mg tablet 150 mg PO QDAY 12/02/24 06/11/01 History zolmitriptan 5 mg tablet See Rx Instructions PO .COMP EL 12/02/24 12/02/24 History PFSH Medical History (Updated 12/02/24 @ 11:19 by Penny Sotelo NP-C) History of suicidal ideation Abscess or cellulitis of foot Achalasia of esophagus Overactive bladder GERD (gastroesophageal reflux disease) Hypothyroidism Schizophrenia HTN (hypertension) Polyarthritis Hyperlipidemia Dysphagia Heart failure Diabetes COPD (chronic obstructive pulmonary disease) Depression Anxiety Cerebral palsy Social History Smoking Status: Former smoker HPI HPI Chief Complaint: fecal incontinence Details: BHARAT MANZANARES, is a 59 F who presents to the office today for The patient is a 59-year-old female presenting with fecal incontinence. She reports having stool incontinence for several years, characterized by leakage ofboth loose and formed stools occurring daily, especially after consuming coffee and scrambled eggs. The patient denies any blood in the stool and has not experienced unexplained weight loss, although she has been on Trulicity for diabetes management for over a year. The patient has a history of diabetes mellitus, which she has had for several years. She is concerned about the potential impact of diabetes on her gastrointestinal symptoms, including the possibility of exocrine pancreatic insufficiency or pelvic floor dysfunction. The patient also reports a long-standing history of dysphagia, attributed to developmental issues from , and has undergone esophageal surgery in 2020 toaddress achalasia. She continues to experience swallowing difficulties, particularly with slippery foods, and is losing teeth, which further complicates herdietary intake. The patient is scheduled for dental surgery to address tooth loss, which will necessitate a liquid diet post-procedure. RESIDENT at [facility] - seen in office today with LINING FINISHER from care facility cerebral palsy - schitzophrenic - constipation - diarrhea - abdominal pain - bloating - HB - works with [employer] at [employer] [facility] due to difficulty swallowing - Dr. Mcknight at , achalasia, possible h/o POEMS COLONOSCOPY (Dr. Varela) 11/06/2024 for c/o diarrhea and fecal incontinence; TVA and hyperplastic polyp, random biopsies are unremarkable - she reports experiencing fecal and bladder incontinence - denies any bleeding - denies any weight loss - has been on Trulicity - she has incontinence of loose and formed stool - leakage of stool every day, worse when she drinks coffee and eats scrambled eggs - she is not certain if her stools are fatty, greasy or oily - reports she no longer eats high fat/fried foods - she is eating soft foods now due to poor dententiton - morbidly obese - presents in WC - poor dentition - Gastrointestinal: Reports fecal incontinence for several years, denies blood in stool, denies unexplained weight loss. - Endocrine: Reports long-standing diabetes mellitus. - Neurological: Reports dysphagia since childhood. - Dental: Reports tooth loss and difficulty chewing. Attestation: Documentation on this patient encounter was supported using ambient scribe technology/ voice AI technology. The patient consented to recording for the purpose of documenting the encounter. Provider reviewed content of the generatednote prior to signature. ROS Const Constitutional: Positive for fatigue, frequent falls, headache(s) and weakness; No fever(s) or weight change ENT ENT: Positive for headache(s) and difficulty swallowing Cardio Cardiology: Positive for leg pain with exertion Gastro GI: Positive for abdominal pain, bloating, change in bowel habits, constipation,diarrhea, heartburn, difficulty swallowing and nausea/dyspepsia; No belching, change in stool character, coffee ground emesis, cramping, feeling full early, excessive flatus, incontinent of stools, Vomiting blood/hematemesis,Blood in stool, loose stools, Black,tarry stools, pain with swallowing, vomitingor other Musc Musculoskeletal: Positive for abnormal gait, joint pain, back pain, muscle weakness, numbness, stiffness, tingling, Arthritis, sciatica, restless legs, legpain at night and leg pain with exertion Skin Skin: Positive for dry skin, lesions, itchy eyes and rash; No yellowing of the eye Neuro Neurology: Positive for abnormal gait, dizziness, weakness, frequent falls, headache(s), numbness, tingling, restless legs and Increased tone in limbs Psych Psychiatric: Positive for anxiety, No depression, Positive for Behavioral Problems and Positive for hyperactivity Endo Endocrine: Positive for fatigue; No weight change Aller/Imm Allergy/Immunologic: Positive for itchy eyes Zachery/Lymp Hematologic/Lymphatic: Positive for easy bleeding and easy bruising Exam Const General: cooperative, healthy appearing, no acute distress and well developed Nutritional Appearance: well nourished and obese Orientation: alert and oriented x3 Other: presents in HENVT Head: normocephalic Ears: hearing grossly normal bilaterally Mouth: moist mucous membranes Teeth and gingiva: poor dentition Eyes Conjunctivae: conjunctivae normal Sclera: sclerae normal Neck Neck: normal visual inspection, full ROM and trachea midline Resp Effort & Inspection: normal respiratory effort, able to speak in complete sentences and symmetric chest movement Neuro General: patient alert and patient oriented x3 Cranial Nerves: other (CN's grossly intact, non-focal exam) Cognition: normal cognition Speech: speech normal Psych Appearance: grossly normal and well kempt Affect: normal affect Attitude: cooperative Thought Process: normal Assessment and Plan Assessment and Plan (1) Stool incontinence: Status: Acute Plan: The plan includes ordering stool testing to evaluate for malabsorption and othergastrointestinal dysfunctions. The patient will be provided with a stool collection kit and instructions for specimen collection. [facility] Stool kit provided: H. pylori, fecal elastase, fecal fat, O&P, giardia, GIPCR (2) Achalasia of esophagus: Status: Acute Comment: 10/2020 Dr. Mcknight at [facility] Plan: The patient will continue to manage dysphagia with dietary modifications, avoiding foods that are difficult to swallow. Plan The patient is a 59-year-old female with a history of diabetes mellitus presenting with fecal incontinence. The fecal incontinence has been persistent for several years, with daily episodes of leakage of both loose and formed stools, particularly after consuming certain foods. The colonoscopy was negativefor colitis, and there is no evidence of blood in the stool or unexplained weight loss, suggesting that the incontinence may be related to diabetes or other gastrointestinal dysfunctions. The patient also has a long-standing history of dysphagia, which has been managed with esophageal surgery for achalasia (POEMS?). She continues to experience swallowing difficulties and is facing dietary challenges due to toothloss, necessitating upcoming dental surgery. Coding Level of Care Code Off vis,new,level 3 Diagnoses Stool incontinence R15.9 Achalasia of esophagus K22.0 Clinical Quality Measures Smoking Screening Smoking Status: Former smoker 12/02/24 1120 <Electronically signed by Penny THOMASON> Date _ Penny THOMASON Cosigner Signature: Date (if applicable) CC: ~ [facility] Work Phone: Reason for referral (narrative)No reason for referral information [facility] Work Phone: History of Present Illness * Chasity Durán, AMMUNITION AND EXPLOSIVES HANDLER - 04/06/2019 9:33 AM EDT Speech Language Pathology Facility/Department: [facility] SPEECH THERAPY Initial Speech/Language/Cognitive Assessment NAME: Bharat Manzanares : 1965 ADMISSION DATE: 04/06/2019 ADMITTING DIAGNOSIS: has Stress incontinence in female; OAB (overactive bladder); Constipation; Diarrhea; Type 2 diabetes mellitus without complication ([facility]); Acquired hypothyroidism; Simple chronic bronchitis ([facility]); Migraine; Acoustic neuroma ([facility]); Hordeolum externum of left lower eyelid; H/O latanya roesophageal reflux (GERD); Boil of upper extremity; Medication refill; Asthma; Astigmatism; Attention deficit disorder with hyperactivity; 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HCC); Chronic obstructive lung disease (HCC); Developmental academic disorder; Dysphagia; Elevated blood-pressure reading without diagnosis of hypertension; Essential hypertension; Gastroesophageal reflux disease; Gingival and periodontal disease; Hearing loss; Hyperlipidemia; Infantile cerebral palsy ([facility]); Intractable migraine without aura; Low compliance bladder; Mental retardation; Mixed stress and urge urinary incontinence; Morbid obesity ([facility]); Myopia; Nuclear sclerotic cataract; Obesity; Parasomnia; Polyneuropathy in diabetes ([facility]); Pure hyperglyceridemia; Tobacco dependence syndrome; Urinary incontinence; andNeed for prophylactic vaccination against Streptococcus pneumoniae (pneumococcus) on their problem list. Date of Eval: 04/06/2019 Evaluating Therapist: Chasity Durán, AMM[employer]ITION AND EXPLOSIVES HANDLER Primary Complaint: Pt reports difficulties with communicating in her daily life. These difficultiesare chronic and pt reports that they have been lifelong. Pt reports difficulty 'saying no' in social situations involving males, as well as communication gaps with family members. Pain: 0/10 Assessment: Pt presents with moderate cognitive deficits characterized by impaired immediate/delayed recall and communication in functional daily living tasks which are chronic in nature. Pt has beenseen by speech therapy multiple times in the past for these same issues. ST to follow up and provide compensatory strategies to assist with recall and functional communication for successful completion of ADLs. Education provided. ST recommends speech therapy 1-2x total due to difficulties being chronic. Recommend pt continue with psychiatric appointments to manage current issues. Recommendations: Duration/Frequency of Treatment: Pt will be seen 1-2x total due to speech/language difficulties being chronic, not acute. Referral To: (Recommend continued follow up with psychiatrist) Plan: Goals: Short-term Goals Goal 1: Pt will be provided memory compensatory strategies to aid in working and short-term recall. Goal 2: Pt will be provided compensatory communication strategies to aid in situations of daily living. Patient/family involved in developing goals and treatment plan: yes Subjective: Previous level of function and limitations: Pt reports difficulties have been lifelong. General Chart Reviewed: Yes Family / Caregiver Present: No Social/Functional History Lives With: Alone Type of Home: Apartment Vision Vision: Impaired Vision Exceptions: Wears glasses at all times Hearing Hearing: (pt reports she has hearing difficulty, reports she will be seeing ENT for hearing aids) Objective: Oral/Motor Oral Motor: Within functional limits Expression Primary Mode of Expression: Verbal Motor Speech Motor Speech: Within Functional Limits Cognition: Orientation Overall Orientation Status: Within Normal Limits Attention Attention: Within Functional Limits Memory Memory: Exceptions to WFL Short-term Memory: Moderate Working Memory: Mild Problem Solving Problem Solving: Exceptions to WFL Simple Functional Tasks: Moderate Abstract Reasoning Abstract Reasoning: Exceptions to WFL Divergent Thinking: Mild Safety/Judgement Safety/Judgement: Exceptions to WFL(pt appropriately responding to all task insight and thought flexiblity tasks. However, reports functional reasoning in daily life are significantly decreased. These are reported to be lifelong difficulties.) Prognosis: Speech Therapy Prognosis Prognosis: Guarded Prognosis Considerations: Co-Morbidities;Medical Diagnosis Individuals consulted Consulted and agree with results and recommendations: Patient Education: Patient Education: yes Patient Education Response: Needs reinforcement Safety Devices in place: Yes Therapy Time: Individual Concurrent Group Co-treatment Time In 0805 Time Out 0855 Minutes 50 DESTINY Rashid 04/06/2019 9:33 AM documented in this encounter* Penny Govea SLP - 04/22/2019 8:00 AM EST Speech Language Pathology Speech Language Pathology [facility] Cognitive Treatment Note Date: 04/22/2019 Patient s Name: Bharat Manzanares Diagnosis: Patient Active Problem List Diagnosis Code Stress incontinence in female N39.3 OAB (overactive bladder) N32.81 Constipation K59.00 Diarrhea R19.7 Type 2 diabetes mellitus without complication ([facility]) E11.9 Acquired hypothyroidism E03.9 Simple chronic bronchitis ([facility]) J41.0 Migraine G43.909 Acoustic neuroma ([facility]) D33.3 Hordeolum externum of left lower eyelid H00.015 H/O gastroesophageal reflux (GERD) Z87.19 Boil of upper extremity L02.429 Medication refill Z76.0 Asthma J45.909 Astigmatism H52.209 Attention deficit disorder with hyperactivity F90.9 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 Chronic obstructive lung disease ([facility]) J44.9 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 Dysphagia R13.10 Elevated blood-pressure reading without diagnosis of hypertension R03.0 Essential hypertension I10 Gastroesophageal reflux disease K21.9 Gingival and periodontal disease K05.6, K06.9 Hearing loss H91.90 Hyperlipidemia E78.5 Infantile cerebral palsy ([facility]) G80.9 Intractable migraine without aura G43.019 Low compliance bladder N31.8 Mental retardation F79 Mixed stress and urge urinary incontinence N39.46 Morbid obesity ([facility]) E66.01 Myopia H52.10 Nuclear sclerotic cataract H25.10 Obesity E66.9 Parasomnia G47.50 Polyneuropathy in diabetes ([facility]) E11.42 Pure hyperglyceridemia E78.1 Tobacco dependence syndrome F17.200 Urinary incontinence R32 Need for prophylactic vaccination against Streptococcus pneumoniae (pneumococcus) Z23 Pain: 0/10 Cognitive Treatment Treatment time: [id number] Subjective: [x] Alert [x] Cooperative [x] Confused [] Agitated [] Lethargic Objective/Assessment: Attention: Pt. With decreased attention throughout session. Other: Pt. Provided with education re: memory and recall strategies after many repetitions and redirects pt. Verbalized understanding. ST discussed how skilled OP ST was not warranted at this time aspt. Is functioning at her baseline cognitive and communicative level. Pt. Needs to accept her communication difficulties and adapt to them. Multiple repetitions of education were provided with decreased understanding noted. Pt. Reports she wants ST to facilitate functional communication between her and her family and her POA. ST provided education that she would need to see a family counselor to facilitate this communication and she reported her family would not show up for the session. It was explained that no one could make her family attend. Pt. Required multiple repetitions that ST did not facilitate family counseling and that a counselor should handle that situation. Pt. Continued with decreased understanding. 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 She is able to independently get herself to this appointment. She is functioning at her baseline at this time. When asked about her deficits she reports they have been present since . Further education provided and pt. discharged fromST at this time. Plan: [] Continue ST services [x] Discharge from ST: Discharge recommendations: [] Inpatient Rehab [] Assisted Facility [] Outpatient Therapy [] Follow up at trauma clinic [x] Other: No need for OP ST, recommend follow up with psych/family counseling Treatment completed by: Penny Govea MYayoS. [facility] AND EXPLOSIVES HANDLER documented in this encounter* Torri Fam RN - 03/11/2020 3:55 PM EDT Dc instructions given to patient and parent. No further questions. Vitals stable. * Lou Cabezas RN - 03/11/2020 3:34 PM EDT Patient transferred to room 63 via stretcher for phase 2. documented in this encounter* Aleena Pro PA - 02/26/2020 10:00 AM EDT Anesthesia Focused Assessment STOP-BANG Sleep Apnea Questionnaire SNORE loudly (heard through closed doors)? No TIRED, fatigued, sleepy during daytime? No OBSERVED stopping breathing during sleep? No High blood PRESSURE being treated? No BMI over 35? Yes AGE over 50? Yes NECK circumference over 16? Yes GENDER (male)? No Total 3 High risk 5-8 Intermediate risk 3-4 Low risk 0-2 Obstructive Sleep Apnea: denies If YES, machine used: no Type 1 DM: no T2DM: yes Coronary Artery Disease: No, but follows with Dr. Beard for CHF Hypertension: no Active smoker: 1/2 ppd for 40 years. Drinks Alcohol: no Dentition: poor Defib / AICD / Pacemaker: no Renal Failure/dialysis: no Patient was evaluated in PAT & anesthesia guidelines were applied. NPO guidelines, medication instructions and scheduled arrival time were reviewed with patient. Hx of anesthesia complications: no Family hx of anesthesia complications: no Anesthesia contacted: no Medical or cardiac clearance ordered: PCP appointment for clearance is Saturday. 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 Beard was clearing her, as well as her access services assistant Dr. Beard. Will request copies for chart. Also, patient is concerned about having dental infection, will discuss with PCP on Saturday. She just finished a prescription for an antibiotic for dental infection. ALEENA PRO PA-C 02/26/20 9:33 AM documented in this encounter Advance Directives No Advanced Directives Records FoundDocuments on File Type Date Recorded Patient Unit Nurse Expl anation Advance Directives and Living Will Power of Hybrid Powertrain Development Engineer Documents on File Type Date Recorded Patient Unit Nurse Expl anation Advance Directives and Living Will Power of Hybrid Powertrain Development Engineer Documents on File Type Date Recorded Patient Unit Nurse Expl anation Advance Directives and Living Will wants to discuss wit h guardian/fire hazard inspector 05-28-19 Power of Hybrid Powertrain Development Engineer Documents on File Type Date Recorded Patient Unit Nurse Expl anation Advance Directives and Living Will wants to discuss wit h guardian/fire hazard inspector 05-28-19 Power of Hybrid Powertrain Development Engineer Documents on File Type Date Recorded Patient Unit Nurse Expl anation ACP-Advance Directive wants to discuss with guardian/fire hazard inspector 05-28-19 ACP-Power of Hybrid Powertrain Development Engineer Latest Code Status on File Code Status Date Activated Date Inactivated Comments Full Code 03/11/2020 2:20 PM Documents on File Type Date Recorded Patient Unit Nurse Expl anation ACP-Advance Directive wants to discuss with guardian/fire hazard inspector 05-28-19 ACP-Power of Hybrid Powertrain Development Engineer Latest Code Status on File Code Status Date Activated Date Inactivated Comments Full Code 03/11/2020 2:20 PM 03/11/2020 6:21 PM Latest Code Status on File Code Status Date Activated Date Inactivated Comments Full Code 03/11/2020 2:20 PM 03/11/2020 6:21 PM Documents on File Type Date Recorded Patient Unit Nurse Expl anation ACP-Advance Directive wants to discuss with guardian/fire hazard inspector 05-28-19 ACP-Power of Hybrid Powertrain Development Engineer ACP-MOLST 04/10/2021 10:53 AM [facility] Flu shot Documents on File Type Date Recorded Patient Unit Nurse Expl anation ACP-MOLST 04/10/2021 10:53 AM [facility] Flu shot Latest Code Status on File Code Status Date Activated Date Inactivated Comments Full Code 08/21/2022 3:40 AM Full Code 03/11/2020 2:20 PM 03/11/2020 6:21 PM Latest Code Status on File Code Status Date Activated Date Inactivated Comments Full Code 08/24/2022 7:01 PM Full Code 08/21/2022 3:40 AM 08/23/2022 6:08 PM Latest Code Status on File Code Status Date Activated Date Inactivated Comments Full Code 08/24/2022 7:01 PM 09/04/2022 4:48 PM Code Status History Code Status Date Activated Date Inactivated Comments Full Code 08/21/2022 3:40 AM 08/23/2022 6:08 PM Full Code 03/11/2020 2:20 PM 03/11/2020 6:21 PM Date Activated Date Inactivated Comments 05/10/2024 4:38 PM 05/13/2024 6:10 PM Latest Code Status on File Code Status Date Activated Date Inactivated Comments Full Code 08/18/2022 6:00 PM 08/19/2022 6:58 PM Date Activated Date Inactivated Comments 08/18/2022 6:00 PM 08/19/2022 6:58 PM Discharge Instructions * Instructions* Hector Hardin MD - 11/02/2019 Please follow up with dentist and dental surgeon as planned. Take antibiotics as directed. documented in this encounter* Instructions* Beatris Varghese RN - 12/01/2019 Upper GI Endoscopy: What to Expect at Home Your Recovery After you have an endoscopy, you will stay at the hospital or clinic for 1 to 2 hours. This will allow the medicine to wear off. You will be able to go home after your doctor or nurse checks to make sure you are not having any problems. You may have a sore throat for a day or two after the test. This care sheet gives you a general idea about what to expect after the test. How can you care for yourself at home? Activity Rest as much as you need to after you go home. You should be able to go back to your usual activities the day after the test. Diet Follow your doctor's directions for eating after the test. Drink plenty of fluids (unless your doctor has told you not to). Follow-up care is a ramsey part of your treatment and safety. Be sure to make and go to all appointments, and call your doctor if you are having problems. It's also a good idea to know your test resultsand keep a list of the medicines you take. When should you call for help? Call 911 anytime you think you may need emergency care. For example, call if: You passed out (lost consciousness). You cough up blood. You vomit blood or what looks like coffee grounds. You pass maroon or very bloody stools. Call your doctor now or seek immediate medical care if: You have trouble swallowing. You have belly pain. Your stools are black and tarlike or have streaks of blood. You are sick to your stomach or cannot keep fluids down. Watch closely for changes in your health, and be sure to contact your doctor if: Your throat still hurts after a day or two. You do not get better as expected. Where can you learn more? Go to [email or web address] and sign in to your [employer] account. Enter J454 in the Search Health Information box to learn more about Upper GI Endoscopy: What to Expect at Home. If you do not have an account, please click on the Sign Up Now link. [employer]. Care instructions adapted under license by [employer] [facility]. This care instruction is for use with your licensed healthcare professional. If you have questions about a medical condition or this instruction, always ask your healthcare professional. [employer] disclaims any warranty or liability for your use of this information. Content Version: 9.9.201014; Last Revised: July 30, 2012 documented in this encounter* Instructions* Pito Jenkins, - 01/20/2020 Not all dental caries requires antibiotics. Some conditions call pulpitis require you to see a dentist to provide follow up care which may require either extraction of the tooth or a root canal. Take your medication as indicated and prescribed. If you are given an antibiotic, then make sure you get the prescription filled and take the antibiotics until finished. Drink plenty of water while taking the antibiotics. Avoid drinking alcohol or drinks that have caffeine in it while taking antibio tics. For pain use ibuprofen (Motrin / Advil) or acetaminophen (Tylenol), unless prescribed medications that have acetaminophen in it. You can take over the counter acetaminophen tablets (1 2 tablets of the 500-mg strength every 6 hours) or ibuprofen tablets (2 tablets every 4 hours). PLEASE RETURN TO THE EMERGENCY DEPARTMENT IMMEDIATELY for worsening symptoms, swelling to your face, redness on your face, drainage from the tooth, or if you develop any concerning symptoms such as: high fever not relieved by acetaminophen (Tylenol) and/or ibuprofen (Motrin / Advil), chills, shortness of breath, chest pain, feeling of your heart fluttering or racing, persistent nausea and/or vomiting, vomiting up blood, blood in your stool, numbness, loss of consciousness, weakness or tingling in the arms or legs or change in color of the extremities, changes in mental status, persistent headache, blurry vision, loss of bladder / bowel control, unable to follow up with your physician, or oth er any other care or concern. * Attachments The following attachments cannot be sent through Care Everywhere. * Tooth and Gum Pain (Stateless) documented in this encounter* Discharge Instr - Activity* Mitch Mccall DDS - 03/11/2020 2:10 PM EDT Tooth Extraction: Care Instructions Your Care Instructions Tooth extraction is the complete removal of a tooth, from the part of the tooth that you can see tothe roots that are in the jawbone. Damage caused by tooth decay is the most common reason for a tooth's extraction. Other reasons for removing a tooth include infection or injury. Removing the tooth can help keep an infection from spreading to other parts of the mouth. And some teeth may be removedto prevent or correct crowding in the mouth. Your dentist or an oral surgeon, who specializes in surgeries of the mouth, can remove a tooth. It can be done in the dentist's or oral surgeon's office. The dentist first numbs the area around the tooth. You may also get medicine to help you relax. Thedentist uses a special tool to grasp the tooth and lift it out of the tooth socket. You may feel a tug on the tooth as it is being removed. If the tooth breaks while being pulled, or if it doesn't come out in one piece, the dentist uses other tools to remove the rest of the tooth. After the tooth comes out, you will be given a piece of gauze to bite down on. This will help stop bleeding. You may need stitches. You will be told if and when you should come back to have the stitches removed. You may have some pain, bleeding, or swelling afterward. The dentist may give you medicine for pain. The pain should steadily decrease in the days after the extraction. A blood clot will form in the tooth socket after the extraction. The clot protects the bone during healing. If that blood clot gets loose or comes out of the socket, you may have a dry socket, which exposes the bone. A dry socket may last for several days and can cause severe pain. If you get a drysocket, your dentist can treat it with medicine. You and your dentist may want to discuss options to replace the removed tooth. Options include an implant, a denture, or a bridge. Follow-up care is a ramsey part of your treatment and safety. Be sure to make and go to all appointments, and call your dentist if you are having problems. It's also a good idea to know your test results and keep a list of the medicines you take. How can you care for yourself at home? While your mouth is numb, be careful not to bite your tongue or the inside of your cheek or lip. Be safe with medicines. Read and follow all instructions on the label. ? If the dentist gave you a prescription medicine for pain, take it as prescribed. ? If you are not taking a prescription pain medicine, ask your dentist if you can take an [id number] medicine. If your dentist prescribed antibiotics, take them as directed. Do not stop taking them just becauseyou feel better. You need to take the full course of antibiotics. If you have bleeding, bite gently on a gauze pad. Change the pad as it becomes soaked with blood. After 24 hours, rinse your mouth gently with warm salt water several times a day. Your dentist may recommend other mouth rinses if needed. Do not rinse hard. This can loosen the blood clot and delay healing. Avoid rubbing the area with your tongue. And don't use a straw for the first few days. Both of these actions can loosen the blood clot and delay healing. Avoid chewing in the area where the tooth was removed until your mouth heals. Soft foods like gelatin or soup might be easier to eat and may help you heal. If needed, put ice or a cold pack on your cheek for 10 to 20 minutes at a time. Try to do this every 1 to 2 hours for the next 3 days (when you are awake) or until the swelling goes down. Put a thin cloth between the ice and your skin. Do not smoke or use spit tobacco for at least 24 hours after the extraction. Tobacco use can delay healing. When should you call for help? [id number] anytime you think you may need emergency care. For example, call if: You passed out (lost consciousness). You have trouble breathing. Call your dentist now or seek immediate medical care if: You have pain that does not get better after you take pain medicine. You have loose stitches, or your incision comes open. You have new or more bleeding from the site. You have signs of infection, such as: ? Increased pain, swelling, warmth, or redness. ? Red streaks leading from the area. ? Pus draining from the area. ? A fever. Watch closely for changes in your health, and be sure to contact your dentist if you have any problems. Where can you learn more? Go to [email or web address] and sign in to your MyChart account. Enter J505 in the Search Health Information box to learn more about Tooth Extraction: Care Instructions. If you do not have an account, please click on the Sign Up Now link. Current as of: September 02, 2019 Content Version: 12.5 [employer]. Care instructions adapted under license by [employer]. If you have questions about a medical condition or this instruction, always ask your healthcare professional. [employer] disclaims any warranty or liability for your use of this information. * Discharge Instr - Diet* Mitch Mccall DDS - 03/11/2020 2:10 PM EDT ? Good nutrition is important when healing from an illness, injury, or surgery. Follow any nutrition recommendations given to you during your hospital stay. ? If you were given an oral nutrition supplement while in the hospital, continue to take this supplement at home. You can take it with meals, in-between meals, and/or before bedtime. These supplements can be purchased at most local grocery stores, pharmacies, and [employer]. ? If you have any questions about your diet or nutrition, call the hospital and ask for the dietitian. * Additional Instructions* Mitch Mccall DDS - 03/11/2020 Tooth Extraction: Care Instructions Your Care Instructions Tooth extraction is the complete removal of a tooth, from the part of the tooth that you can see tothe roots that are in the jawbone. Damage caused by tooth decay is the most common reason for a tooth's extraction. Other reasons for removing a tooth include infection or injury. Removing the tooth can help keep an infection from spreading to other parts of the mouth. And some teeth may be removedto prevent or correct crowding in the mouth. Your dentist or an oral surgeon, who specializes in surgeries of the mouth, can remove a tooth. It can be done in the dentist's or oral surgeon's office. The dentist first numbs the area around the tooth. You may also get medicine to help you relax. Thedentist uses a special tool to grasp the tooth and lift it out of the tooth socket. You may feel a tug on the tooth as it is being removed. If the tooth breaks while being pulled, or if it doesn't come out in one piece, the dentist uses other tools to remove the rest of the tooth. After the tooth comes out, you will be given a piece of gauze to bite down on. This will help stop bleeding. You may need stitches. You will be told if and when you should come back to have the stitches removed. You may have some pain, bleeding, or swelling afterward. The dentist may give you medicine for pain. The pain should steadily decrease in the days after the extraction. A blood clot will form in the tooth socket after the extraction. The clot protects the bone during healing. If that blood clot gets loose or comes out of the socket, you may have a dry socket, which exposes the bone. A dry socket may last for several days and can cause severe pain. If you get a drysocket, your dentist can treat it with medicine. You and your dentist may want to discuss options to replace the removed tooth. Options include an implant, a denture, or a bridge. Follow-up care is a ramsey part of your treatment and safety. Be sure to make and go to all appointments, and call your dentist if you are having problems. It's also a good idea to know your test results and keep a list of the medicines you take. How can you care for yourself at home? While your mouth is numb, be careful not to bite your tongue or the inside of your cheek or lip. Be safe with medicines. Read and follow all instructions on the label. ? If the dentist gave you a prescription medicine for pain, take it as prescribed. ? If you are not taking a prescription pain medicine, ask your dentist if you can take an qwhg-unr-ecxtogi medicine. If your dentist prescribed antibiotics, take them as directed. Do not stop taking them just becauseyou feel better. You need to take the full course of antibiotics. If you have bleeding, bite gently on a gauze pad. Change the pad as it becomes soaked with blood. After 24 hours, rinse your mouth gently with warm salt water several times a day. Your dentist may recommend other mouth rinses if needed. Do not rinse hard. This can loosen the blood clot and delay healing. Avoid rubbing the area with your tongue. And don't use a straw for the first few days. Both of these actions can loosen the blood clot and delay healing. Avoid chewing in the area where the tooth was removed until your mouth heals. Soft foods like gelatin or soup might be easier to eat and may help you heal. If needed, put ice or a cold pack on your cheek for 10 to 20 minutes at a time. Try to do this every 1 to 2 hours for the next 3 days (when you are awake) or until the swelling goes down. Put a thin cloth between the ice and your skin. Do not smoke or use spit tobacco for at least 24 hours after the extraction. Tobacco use can delay healing. When should you call for help? [id number] anytime you think you may need emergency care. For example, call if: You passed out (lost consciousness). You have trouble breathing. Call your dentist now or seek immediate medical care if: You have pain that does not get better after you take pain medicine. You have loose stitches, or your incision comes open. You have new or more bleeding from the site. You have signs of infection, such as: ? Increased pain, swelling, warmth, or redness. ? Red streaks leading from the area. ? Pus draining from the area. ? A fever. Watch closely for changes in your health, and be sure to contact your dentist if you have any problems. Where can you learn more? Go to [email or web address] and sign in to your [employer] account. Enter J505 in the Search Health Information box to learn more about Tooth Extraction: Care Instructions. If you do not have an account, please click on the Sign Up Now link. Current as of: September 02, 2019 Content Version: 12.5 [employer]. Care instructions adapted under license by [employer]. If you have questions about a medical condition or this instruction, always ask your healthcare professional. [employer] disclaims any warranty or liability for your use of this information. documented in this encounter* Instructions* Aleena Pro PA - 02/26/2020 Preoperative Instructions: Stop eating solid foods at midnight the night prior to surgery. Stop drinking clear liquids at midnight the night prior to surgery. Arrive at the surgery center (Entrance B) by 11:00 on 03/11/2020 (or as directed by your surgeon's office). Please stop any blood thinning medications as directed by your surgeon or prescribing physician. Failure to stop certain medications may interfere with your scheduled surgery. These may include: Aspirin, Warfarin (Coumadin), Clopidogrel (Plavix), Ibuprofen (Motrin, Advil), Naproxen (Aleve), Meloxicam (Mobic), Celecoxib (Celebrex), Eliquis, Pradaxa, Xarelto, Effient, Fish Oil, Herbal supplements. You may continue the rest of your medications through the night before surgery unless instructed otherwise. Please take only the following medication(s) the day of surgery with a small sip of water: Haldol, cogentin, synthroid Please use and bring inhalers the day of surgery. Please bring CPAP the day of surgery. ALEENA PRO PA-C 02/26/20 9:46 AM Signature (Patient) Signature/date(Provider) REMINDERS: If you are going home the day of your procedure, you will need a friend or family member to drive you home after your procedure. Your [employer] company driver must be 18 years of age or older and able to sign off on your discharge instructions. Taxi cabs or any form of public transportation is not acceptable. It is preferable that the friend or family member stay at the hospital throughout your procedure. If you are going home the same day as your procedure, someone must remain with you for the first24 hours after your surgery if you receive anesthesia or sedation. If you do not have someone to stay with you, your procedure may be cancelled. Please do not wear any jewelry or body piercings the day of surgery. PREPARING FOR YOUR SURGERY: Before surgery, you can play an important role in your own health. Because skin is not sterile, we need to be sure that your skin is as free of germs as possible before surgery by carefully washing before surgery. Preparing or prepping skin before surgery can reduce the risk of a surgical site infection. Do not shave the area of your body where your surgery will be performed unless you received specific permission from your physician. You will need to shower at home the night before surgery and the morning of surgery with a special soap called chlorhexidine gluconate (CHG*). *Not to be used by people allergic to Chlorhexidine Gluconate (CHG). Following these instructions will help you be sure that your skin is clean before surgery. Instructions on cleaning your skin before surgery: The night before your surgery: ? You will need to shower with warm water (not hot) and the CHG soap. ? Use a clean wash cloth and a clean towel. Have clean clothes available to put on after the shower. ? First wash your hair with regular shampoo. Rinse your hair and body thoroughly to remove the shampoo. ? Wash your face with your regular soap or water only. Thoroughly rinse your body with warm water from the neck down. ? Turn water off to prevent rinsing the soap off too soon. ? With a clean wet washcloth and half of the CHG soap in the bottle, lather your entire body from the neck down. Do not use CHG soap near your eyes or ears to avoid injury to those areas. ? Wash thoroughly, paying special attention to the area where your surgery will be performed. ? Wash your body gently for five (5) minutes. Avoid scrubbing your skin too hard. ? Turn the water back on and rinse your body thoroughly. ? Pat yourself dry with a clean, soft towel. Do not apply lotion, cream or powder. ? Dress with clean freshly washed clothes. The morning of surgery: ? Repeat shower following steps above - using remaining half of CHG soap in bottle. If you have any questions, call the Pre-Admission Testing Unit at [phone]. Day of Surgery/Procedure As a patient at [facility] you can expect quality medical and nursing care that is centered on your individual needs. Our goal is to make your surgical experience as comfortableas possible . Directions to the Surgery Center [facility] is located at [address] [place] [address]. Please pull into the Emergency parking lot and stop at the [employer] laird. We offer free vice president of manufacturing service for all our surgery patients, if you choose not to have vice president of manufacturing parking we have additional parking across the street.You will enter the facility following the blue Surgery Center sign. Please stop at the center receptionist desk where you will be checked in by the staff. If you have any questions please call [phone]. Transportation after your procedure. You will need a friend or family member to drive you home after your procedure. Your [employer] company driver must be18 years of age or older and able to sign off on your discharge instructions. Taxi cabs or any formof public transportation is not acceptable. It is preferable that the friend or family member stay at the hospital throughout your procedure. Someone must remain at home with you for the first 24 hours after your surgery if you receive anesthesia or sedation. If you do not have someone to stay with you, your procedure may be cancelled. Patient Instructions ? If you are having any type of anesthesia you are to have nothing to eat or drink after midnight the night before your surgery. This includes gum, mints, water or smoking or chewing tobacco. The only exception to this is a small sip of water to take with any morning dose of heart, blood pressure, or seizure medications. ? Bring a list of all medications you take, along with the dose of the medications and how often you take it. If more convenient bring the pharmacy bottles in a zip lock bag. ? Please shower the night before and the morning of surgery with an antibacterial soap. Please use the wipes given to you the night before your surgery after your shower. Unless otherwise told by your physician, please do not shave legs or any part of your body below your neck the night before or day of your surgery. You may shave your face or neck. ? [place] your teeth but do not swallow water. ? Bring your inhaler if you are currently using one. ? Bring your eyeglasses and case with you. No contacts are to be worn the day of surgery. You also may bring your hearing aids. ? Bring your blood band if one has been given to you. Please do not close the clasp. ? If you are on C-PAP or Bi-PAP at home and plan on staying in the hospital overnight for your surgery please bring the machine with you. ? Do not wear any jewelry or body piercings day of surgery. Also, NO lotion, perfume or deodorant to be used the day of surgery. ? Do not bring any valuables, such as jewelry, cespedes or credit cards. If you are staying overnight with us, please bring a SMALL bag of personal items. We cannot accommodate large items, like suitcases. ? Please wear loose, comfortable clothing. If you are potentially going to have a cast or brace bring clothing that will fit over them. ? In case of illness If you have cold or flu like symptoms (high fever, runny nose, sore throat, cough, etc.) rash, nausea, vomiting, loose stools, and/or recent contact with someone who has a contagious disease (chicken pox, measles, etc.) Please call your doctor before coming to the hospital. ? If your child is having surgery please make arrangements for any other children to be cared for at home on the day of surgery. Other children are not permitted in recovery room and we want you to be able to spend time with the patient. If other arrangements are not available then we suggest that you have a second adult to stay in the waiting room. If you have any other questions regarding your procedure or the day of surgery, please call [phone], or [phone] documented in this encounter* Instructions* Ignacio Vizcaino, DO - 11/28/2019 Smoking cigarettes or being around anyone that smokes cigarettes can cause constriction of the blood vessels in the brain which in turn can cause you to have further headaches. For pain use acetaminophen (Tylenol) or ibuprofen (Motrin / Advil), unless prescribed medications that have acetaminophen or ibuprofen (or similar medications) in it. You can take over the counter acetaminophen tablets (1 2 tablets of the 500-mg strength every 6 hours) or ibuprofen tablets (2 tablets every 4 hours). Avoid taking narcotics for headaches (can cause a worse headache in several hoursafter taking the medication). Make sure that you drink plenty of water or Gatorade (or similar solution) to keep yourself hydrated. PLEASE RETURN TO THE EMERGENCY DEPARTMENT IMMEDIATELY for worsening symptoms, change in vision / hearing / taste, ringing in your ears, loss of sensation or difficulty moving your arms or legs, or ifyou develop any concerning symptoms such as: high fever not relieved by acetaminophen (Tylenol) and/or ibuprofen (Motrin / Advil), chills, shortness of breath, chest pain, feeling of your heart fluttering or racing, persistent nausea and/or vomiting, vomiting up blood, blood in your stool, numbness, loss of consciousness, weakness or tingling in the arms or legs or change in color of the extremities, changes in mental status, persistent headache, blurry vision, loss of bladder / bowel control, u nable to follow up with your physician, or other any other care or concern documented in this encounter Assessments Diagnosis Pain, dental Unspecified disorder of the teeth and supporting structures Fluid level behind tympanic membrane of left ear Diagnosis Personal history of tobacco use Personal history of tobacco use, presenting hazards to health Diagnosis Migraine without aura and without status migrainosus, not intractable Migraine without aura, without mention of intractable migraine without mention of status migrainosus Diagnosis Breast cancer screening by mammogram Diagnosis Pain, dental Unspecified disorder of the teeth and supporting structures Reason for Referral Status Reason Specialty Diagnoses / Procedures Referred By Contact Referred To Contact Authorized - [facility] Diagnoses Personal history of tobacco use Procedures CT Lung Screen (Annual) CT CHEST SCREEN[place] [address] [place] [address] Status Reason Specialty Diagnoses / Procedures Referre d By Contact Referred To Contact Closed Radiology Diagnoses Breast cancer screening by mammogram Procedures ISABELLA DIGITAL SCREEN W OR WO CAD BILATERAL HC MAMMO SCREENING INCL CAD IF PERF Lisa Leiva MD [address] [place] [address] Status Reason Specialty Diagnoses / Procedures Referre d By Contact Referred To Contact Closed Radiology Diagnoses Personal history of tobacco use Procedures CT lung screen [Initial/Annual] Axel Avila MD [address] [address] Status Reason Specialty Diagnoses / Procedures Referre d By Contact Referred To Contact Open Radiology Diagnoses Dysphagia, unspecified type Procedures FL MODIFIED BARIUM SWALLOW W VIDEO Olga Zeng MD [address] [address] Status Reason Specialty Diagnoses / Procedures Referre d By Contact Referred To Contact Open Radiology Diagnoses Dysphagia, unspecified type Procedures FL ESOPHAGRAM HC FLURO ESOPHAGRAM Olga Zeng MD [address] [place] [address] Summary Purpose Family History No Family History Records FoundNo Family History Records FoundNo Family History Records FoundNo Family History Records FoundNo Family History Records FoundNo Family History Records FoundNo Family History Records FoundNo Family History Records Found No data available for this section No data available for this section No Family History Records FoundNo Family History Records Found Chief Complaint POV Chief Complaint and Reason for Visit Chief Complaint Admit Date COLONOSCOPY October 15, 2024 1:06pm Reason for Visit Admit Date Encounter for screening for malignant ne oplasm of colon October 15, 2024 1:06pm Stool incontinence October 15, 2024 1:06pm Chief Complaint Admit Date COLONOSCOPY October 15, 2024 1:06pm Gastroesophageal reflux disease (GERD) J 2024 10:35am Reason for Visit Admit Date Encounter for screening for malignant ne oplasm of colon October 15, 2024 1:06pm Stool incontinence October 15, 2024 1:06pm Achalasia of esophagus December 02, 2024 1 0:35am Stool incontinence December 02, 2024 10:3 5am Additional Source Comments Reason for Visit (unrecogniz ed section and content) Status Reason Specialty Diagnoses / Procedures Referred By Contact Referred To Contact Authorized Specialty Services Required Speech Pathology / Speech Therapy Diagnoses Mixed receptive-expres sive language disorder Jeremy Sepulveda MD [address] [place] [address] [facility] Speech Therapy [address] [place] [address] Reason Comments Dental Pain Status Reason Specialty Diagnoses / Procedures Referred By Contact Referred To Contact Authorized - [facility] Diagnoses Personal history of tobacco use Procedures CT Lung Screen (Annual) HC CT CHEST SCREENING LOW DOSE WOUT CONT Axel Avila MD [address] [facility] [address] [place] [address] Status Reason Specialty Diagnoses / Procedures Re ferred By Contact Referred To Contact Diagnoses Dysphagia DX DYSPHAGIA Procedures FL ESOPHAGOGASTRODUODENOSCOPY TRANSORAL DIAGNOSTIC EGD ESOPHAGOGASTRODUODENOSCOPY Olga Zeng MD [address] [place] [address] [facility] Reason Comments Headache Status Reason Specialty Diagnoses / Procedures Referre d By Contact Referred To Contact Closed Radiology Diagnoses Breast cancer screening by mammogram Procedures ISABELLA DIGITAL SCREEN W OR WO CAD BILATERAL HC MAMMO SCREENING INCL CAD IF PERF Lisa Leiva MD [address] [place] [address] Status Reason Specialty Diagnoses / Procedures Referre d By Contact Referred To Contact Diagnoses Dental caries DENTAL CARIES Procedures FL EXTRACTION ERUPTED TOOTH OR EXPOSED ROOT FL DENTAL SURGERY PROCEDURE FL ANESTH,PROCEDURE ON MOUTH DENTAL EXTRACTION X4 Mitch Mccall, DDS [address] [place] [address] [facility] Reason Comments Migraine Reason Comments Nausea Emesis Status Reason Specialty Diagnoses / Procedures Re ferred By Contact Referred To Contact Pending Review Diagnoses Chronic obstructive pulmonary disease, unspecified COPD type ([facility]) Procedures Full PFT Study With Bronchodilator Axel Avila MD [address] [facility] [address] [place] [address] Reason Comments Arm Pain right arm pain state s [employer] did ultrasound today and told her she had a blood clot today Status Reason Specialty Diagnoses / Procedures Referred By Contact Referred To Contact Closed Pharmacy Diagnoses DVT of upper extremity (deep vein thrombosis) ([facility]) Frederic Baker MD [address] [facility] [address] [place] [address] [facility] [address] [place] [address] Status Reason Specialty Diagnoses / Procedures Referre d By Contact Referred To Contact Closed Radiology Diagnoses Personal history of tobacco use Procedures CT lung screen [Initial/Annual] Axel Avila MD [address] [facility] [address] [place] [address] Reason Comments Leg Pain right leg pain x cou ple days denies any injury hx of arthirits Reason Comments Heartburn Status Reason Specialty Diagnoses / Procedures Referred By Contact Referred To Contact Pending Review Radiology Diagnoses Dysphagia, unspecified Procedures HC SWALLOWING EVALUATION Olga Zeng MD [address] [address] [facility] [address] [place] [address] Status Reason Specialty Diagnoses / Procedures Referre d By Contact Referred To Contact Open Radiology Diagnoses Dysphagia, unspecified type Procedures FL ESOPHAGRAM HC FLURO ESOPHAGRAM Olga Zeng MD [address] [address] Reason Comments Knee Pain Specialty Diagnoses / Procedures Referred By Contac t Referred To Contact Diagnoses Cellulitis Leg swelling Elevated d-dimer Miguel A Ellison DO [address] [place] [address] [facility] [address] [place] [address] Referral ID Status Reason Start Date Expiration Date Visits Re quested Visits Authorized [id number] 1 1 Reason Comments Other Wants placed in assi sted living Specialty Diagnoses / Procedures Referred By Contac t Referred To Contact Diagnoses Failure to thrive in adult Dizziness Unable to care for self Frederic Dc MD [address] [place] [address] [facility] [address] [place] [address] Referral ID Status Reason Start Date Expiration Date Visits Re quested Visits Authorized [id number] 1 1 Reason Comments Diarrhea Pt from [facility], states they have an outbreak of Norovirus at the facility. Pt arrives with diarrhea for 1.5 days. Pt awake and alert on arrival. Pt also c/o knee pain chronic and a migraine. Specialty Diagnoses / Procedures Referred By Contac t Referred To Contact Diagnoses Fever and chills Procedures . Edward Morales MD [address] [place] [address] Phone: tel: fax: [facility] Observation Unit [address] [place] [id number] Phone: tel: Referral ID Status Reason Start Date Expiration Date Visits Re quested Visits Authorized [id number] 1 1 Reason Onset Date Comments Neuropsychology Evaluation 11/15/2023 Ordered Prescriptions (unrec ognized section and content) Prescription Sig Dispensed Refills Start Date End Da te ondansetron (ZOFRAN ODT) 4 MG disintegrating tablet Take 1 tablet by mouth every 8 hours as needed for Nausea 20 tablet 0 09/29/2020 ondansetron (ZOFRAN ODT) 4 MG disintegrating tablet Take 1 tablet by mouth every 8 hours as needed for Nausea 20 tablet 0 09/29/2020 09/29/2020 Prescription Sig Dispensed Refills Start Date End Da te apixaban starter pack (ELIQUIS DVT/PE STARTER PACK) 5 MG TBPK tablet Take 1 tablet by mouth See Admin Instructions Take 2 tablets = 10mg twice daily for 7 days, then 1 tablet=5mg twice daily each day. Follow up with [facility]. 1 each 0 11/02/2020 Prescription Sig Dispensed Refills Start Date End Da te apixaban (ELIQUIS) 5 MG TABS tablet Take 1 tablet by mouth 2 times daily 60 tablet 1 11/17/2020 12/17/2020 Prescription Sig Dispensed Refills Start Date End Da te ibuprofen (IBU) 400 MG tablet Take 1.5 tablets by mouth every 8 hours as needed for Pain 15 tablet 0 09/08/2021 acetaminophen (TYLENOL) 500 MG tablet Take 1 tablet by mouth 4 times daily as needed for Pain 20 tablet 1 09/08/2021 Prescription Sig Dispensed Refills Start Date End Da te Skin Protectants, Misc. (HYDROCERIN) CREA cream Apply topically 2 times daily 228 g 0 08/23/2022 amoxicillin-clavulanate (AUGMENTIN) 500-125 MG per tablet Take 1 tablet by mouth every 8 hours for 20 doses 20 tablet 0 08/23/2022 08/30/2022 apixaban (ELIQUIS) 5 MG TABS tablet Take 2 tablets by mouth 2 times daily for 7 days, THEN 1 tablet 2 times daily. 88 tablet 0 08/21/2022 09/27/2022 Prescription Sig Dispensed Refills Start Date End Da te loperamide (IMODIUM) 2 MG capsule Take 1 capsule by mouth 4 times daily as needed for Diarrhea 60 capsule 0 08/30/2022 09/09/2022 <item> Privacy Markings (unrecogniz ed section and content) Section Author: Chana Fernandez PROHIBITION ON REDISCLOSURE OF CONFIDENTIAL INFORMATION This notice accompanies a disclosure of information concerning a client made to you with the consent of such client. Scheduled Active and Recently Administ ered Medications (unrecognized section and content) Medication Order 10/31/2020 11/01/2020 11/02/2020 apixaban (ELIQUIS) tablet 10 mg (COMPLETED) 10 mg, Oral, ONCE, On Sat11/02/20 at 2245, For 1 dose, ANTICOAGULANT 2316 (Given - Provid er: Angelita Lucio RN) Scheduled Medication Order 08/28/2021 08/29/2021 08/30/2021 HYDROcodone-acetaminophen (NORCO) 5-325 MG per tablet 1 tablet (COMPLETED) 1 tablet, Oral, ONCE, 1 dose, On Sat08/30/21 at 1245, Maximum dose of acetaminophen is 4000 mg from all sources in 24 hours. 1242 (Given - Provid er: Terry Funez RN) ketorolac (TORADOL) injection 30 mg (COMPLETED) Ketorolac is contraindicated in patients with advanced renal impairment and in patients at risk of renal failure due to volume depletion. For 65 years of age and older OR weight less than 50 kg, use 15 mg IV every 6 hours; MAX dose: 60 mg/day. Dose greater than 30 mg must be administered via intramuscular route. Do not administer for more than 5 days., 30 mg, IntraMUSCular, ONCE, 1 dose, On Sat08/30/21 at 1430, Do not administer for more than 5 days. 1428 (Given - Provid er: Terry Funez RN) Scheduled Medication Order 09/06/2021 09/07/2021 09/08/2021 ketorolac (TORADOL) injection 30 mg (COMPLETED) Ketorolac is contraindicated in patients with advanced renal impairment and in patients at risk of renal failure due to volume depletion. For 65 years of age and older OR weight less than 50 kg, use 15 mg IV every 6 hours; MAX dose: 60 mg/day. Dose greater than 30 mg must be administered via intramuscular route. Do not administer for more than 5 days., 30 mg, IntraMUSCular, ONCE, 1 dose, On Sat09/08/21 at 0145, Do not administer for more than 5 days. 0144 (Given - Provid er: José Miguel Jordan RN) Scheduled Medication Order 08/21/2022 08/22/2022 08/23/2022 amoxicillin-clavulanate (AUGMENTIN) 500-125 MG per tablet 1 tablet 1 tablet, Oral, EVERY 8 HOURS SCHEDULED (3 times per day), 21 doses, First dose (after last modification) on Isatu 08/23/22 at 0800, Last dose on Sat08/29/22 at 2200, Antimicrobial Indications: Skin and Soft Tissue Infection, Skin duration of therapy: 7 days 0934 (Given - Provider: Jennifer Trammell LPN)1445 (Given - Provider: Michaela Hernandez RN)2200 (Due) apixaban (ELIQUIS) tablet 10 mg(Linked Group 1) 10 mg, Oral, 2 TIMES DAILY, 14 doses, First dose on Sat08/21/22 at 1300, Last dose on Sat08/27/22 at 2100, Indication of Use: Treatment-DVT/PE, ANTICOAGULANT 1351 (Given - Provider: Michaela Hernandez RN)2117 (Given - Provider: Porter Grewal RN) 0903 (Given - Provider: Sabrina Moerau RN)203 (Given - Provider: Shahla Moe) 0934 (Given - Provider: Jennifer Trammell LPN)2100 (Due) apixaban (ELIQUIS) tablet 5 mg(Linked Group 1) 5 mg, Oral, 2 TIMES DAILY, First dose on Sat08/28/22 at 0900, Until Discontinued, Indication of Use: Treatment-DVT/PE, ANTICOAGULANT atorvastatin (LIPITOR) tablet 40 mg 40 mg, Oral, NIGHTLY, First dose on Sat08/22/22 at 2100, Until Discontinued 2032 (Given - Provider: Shahla Moe) 2100 (Due) budesonide-formoterol (SYMBICORT) 160-4.5 MCG/ACT inhaler 2 puff 2 puff, Inhalation, 2 TIMES DAILY, First dose on Sat08/22/22 at 1145, Until Discontinued, Substituted for Fluticasone-Salmeterol (ADVAIR HFA) 1204 (Given - Provider: Lauren Craig RCP)1946 (Given - Provider: Munira Valencia RCP) 0945 (Given - Provider: Cale Benson RCP)1999 (Due) buPROPion (WELLBUTRIN SR) extended release tablet 150 mg (CANCELED) 150 mg, Oral, DAILY, First dose on Sat08/21/22 at 1315, Until Discontinued, Do not crush or break. 1350 (Given - Provider: Michaela Hernandez RN) 0903 (Given - Provider: Sabrina Moreau RN) buPROPion (WELLBUTRIN XL) extended release tablet 150 mg 150 mg, Oral, EVERY MORNING, First dose on Sat08/23/22 at 0900, Until Discontinued, Do not crush or break. 0934 (Given - Provider: Jennifer Trammell LPN) cefTRIAXone (ROCEPHIN) 1,000 mg in sterile water 10 mL IV syringe (CANCELED) 1,000 mg, IntraVENous, EVERY 24 HOURS, 7 doses, First dose on Sat08/22/22 at 0300, Last dose on Sat08/28/22 at 0300, Antimicrobial Indications: Skin and Soft Tissue Infection, Skin duration of therapy: 7 days, Administer as slow IV Push over 5 mins Reconstitute 1 g vials with 9.6 mL of designated diluent to produce a 100 mg/mL solution. 0323 (Given - Provider: Porter Grewal RN) cefTRIAXone (ROCEPHIN) 2,000 mg in sodium chloride 0.9 % 50 mL IVPB (mini-bag) (COMPLETED) 2,000 mg, IntraVENous, ONCE, 1 dose, On Sat08/21/22 at 0230, Antimicrobial Indications: Skin and Soft Tissue Infection 0254 (New Bag - Provider: Gab Oviedo RN)034 (Stopped - Provider: Preet Harrell RN) divalproex (DEPAKOTE SPRINKLE) DR capsule 250 mg 250 mg, Oral, 2 TIMES DAILY, First dose on Sat08/22/22 at 2100, Until Discontinued 2033 (Given - Provider: Shahla Moe) 0937 (Given - Provider: Jennifer Trammell LPN - Comment: patient only wants 1)2100 (Due) divalproex (DEPAKOTE) DR tablet 250 mg (CANCELED) 250 mg, Oral, EVERY 12 HOURS SCHEDULED (2 times per day), First dose (after last modification) on Sat08/22/22 at 1030, Until Discontinued, Do not crush or break. 1035 (Given - Provider: Sabrina Moreau RN) enoxaparin (LOVENOX) 180 mg injection (COMPLETED) 180 mg (1.5 mg/kg 116.6 kg), SubCUTAneous, ONCE, 1 dose, On Sat08/21/22 at 0230, Indication of Use: Treatment-DVT/PE, Administer by deep subCUTAneous injection with pt lying down. Alternate injection sites on abdominal wall. Do not rub site after injection. Check with provider prior to any invasive procedure. 0254 (Given - Provider: Gab Oviedo RN) furosemide (LASIX) tablet 40 mg (CANCELED) 40 mg, Oral, DAILY, First dose on Sat08/21/22 at 1300, Until Discontinued 1351 (Given - Provider: Michaela Hernandez, SHANA) 0903 (Given - Provider: Sabrina Moreau, SHANA) furosemide (LASIX) tablet 40 mg 40 mg, Oral, DAILY, First dose (after last modification) on Sat08/22/22 at 1145, Until Discontinued 1239 (Not Given - Provider: Sabrina Moreau, SHANA - Reason: Contraindicated - Comment: pt received at 0903 this AM) 0934 (Given - Provider: Jennifer Trammell LPN) Hydrocerin cream CREA Topical, 2 TIMES DAILY, First dose on Sat08/22/22 at 1415, Apply to BLE. 181 (Canceled Entry - Provider: Sabrina Moreau RN)2030 (Given - Provider: Shahla Moe - Comment: ble) 0944 (Given - Provider: Jennifer Trammell LPN)2100 (Due) levothyroxine (SYNTHROID) tablet 200 mcg (CANCELED) 200 mcg, Oral, DAILY, First dose (after last modification) on Sat08/22/22 at 0700, Until Discontinued, Tube feeding (TF) interaction, obtain physician order to manage, recommend holding TF for 30 minutes before and after dose. 050 (Given - Provider: Porter Grewal RN) levothyroxine (SYNTHROID) tablet 200 mcg 200 mcg, Oral, DAILY, First dose on Sat08/23/22 at 0700, Until Discontinued, Tube feeding (TF) interaction, obtain physician order to manage, recommend holding TF for 30 minutes before and after dose. 06 (Given - Provider: Shahla Moe) metFORMIN (GLUCOPHAGE) tablet 500 mg 500 mg, Oral, 2 TIMES DAILY WITH MEALS, First dose on Sat08/21/22 at 1700, Until Discontinued 171 (Given - Provider: Michaela Hernandez, SHANA) 09 (Given - Provider: Sabrina Moreau RN)1816 (Given - Provider: Sabrina Moreau RN) 0936 (Given - Provider: Jennifer Trammell LPN)1700 (Due) nicotine (NICODERM CQ) 21 MG/24HR 1 patch 1 patch, TransDERmal, Administer over 24 Hours, DAILY, First dose on Sat08/21/22 at 2045, Apply new patch to nonhairy, clean, dry skin on the upper body or upper outer arm. Rotate patch sites. Notify pharmacy if patient or provider prefers patch to be removed at bedtime and replaced in the morning. Hazardous Medication -- Refer to facility policy for handling and disposal. 2116 (Patch Applied - Provider: Porter Grewal RN) 09 (Patch Removed - Provider: Sabrina Moreau RN)0904 (Patch Applied - Provider: Sabrina Moreau RN) 0936 (Patch Applied - Provider: Jennifer Trammell LPN)0939 (Patch Removed - Provider: Jennifer Trammell LPN)0949 (Patch Removed - Provider: Michaela Hernandez RN) oxybutynin (DITROPAN-XL) extended release tablet 10 mg 10 mg, Oral, NIGHTLY, First dose on Sat08/22/22 at 2100, Until Discontinued, Do not crush or break. 2026 (Not Given - Provider: Shahla Moe - Reason: Patient/family refused) 2099 (Due) pantoprazole (PROTONIX) tablet 40 mg 40 mg, Oral, DAILY, First dose on Sat08/22/22 at 1145, Until Discontinued, Do not crush or break. 1305 (Given - Provider: Sabrina Moreau RN) 0934 (Given - Provider: Jennifer Trammell LPN) sodium chloride flush 0.9 % injection 5-40 mL 5-40 mL, IntraVENous, EVERY 12 HOURS SCHEDULED (2 times per day), First dose on Sat08/21/22 at 0900, Until Discontinued, For Line Patency: Peripheral IV = 5 mL; Midline or Central Line = 10 mL/lumen. If following IV push medication, administer flush at same rate as the IV push. Flush volume is determined by type of infusion therapy being given. For non-viscous solutions use: Peripheral IV = 5 mL Midline or Central Line = 10 mL/lumen For viscous solutions (i.e. blood components, parenteral nutrition, contrast media, or after obtaining blood sample) use: Peripheral IV = 10 mL Midline or Central Line = 20 mL/lumen 0857 (Given - Provider: Michaela Hernandez RN)2117 (Not Given - Provider: Porter Grewal RN - Reason: Other) 09 (Given - Provider: Sabrina Moreau RN)2032 (Given - Provider: Shahla Moe) 0939 (Given - Provider: Jennifer Trammell LPN)2099 (Due) vancomycin (VANCOCIN) 1500 mg in sodium chloride 0.9 % 250 mL IVPB (CANCELED) 1,500 mg (12.9 mg/kg), IntraVENous, at 166.7 mL/hr, Administer over 90 Minutes, EVERY 24 HOURS, First dose on Sat08/22/22 at 1230 1310 (New Bag - Provider: Sabrina Moreau RN)1440 (Stopped - Provider: Sabrina Moreau RN) vancomycin (VANCOCIN) 1750 mg in sodium chloride 0.9 % 500 mL IVPB (COMPLETED) 1,750 mg (rounded from 1,749 mg = 15 mg/kg 116.6 kg), IntraVENous, at 250 mL/hr, Administer over 120 Minutes, ONCE, On Sat08/21/22 at 0230, For 1 dose, Max Dose 2500mg 0449 (New Bag - Provider: Preet Harrell RN)0649 (Stopped - Provider: Preet Harrell RN) PRN Medication Order 08/21/2022 08/22/2022 08/23/2022 0.9 % sodium chloride infusion IntraVENous, at 5-250 mL/hr, PRN, if patient receiving piggyback infusions and maintenance fluids are not ordered OR KVO fluids to protect IV site / prevent frequent line interruptions/ long duration, Starting on Sat08/21/22 at 0340, For piggyback infusion, administer at same rate as piggyback for a total of 25 mL. Enter 25 mL into dose field and piggyback rate into rate field of order. If piggyback is infusing at a rate less than 100 mL/hr, enter 25 mL into dose field and 100 mL/hr into rate field of order. For KVO fluids, enter rate of 20 mL/hr or less into rate field of order. acetaminophen (TYLENOL) suppository 650 mg(Linked Group 2) 650 mg, Rectal, EVERY 6 HOURS PRN, Starting on Sat08/21/22 at 0340, Until Discontinued, Pain Mild (1-3), Fever, For temp greater than 100.4 F (38 C), Administer if oral route cannot be used. 0731 (See Alternative - Provider: Preet Harrell RN)1716 (See Alternative - Provider: Michaela Hernandez RN) 0501 (See Alternative - Provider: Porter Grewal RN) 1114 (See Alternative - Provider: Jennifer Trammell LPN) acetaminophen (TYLENOL) tablet 650 mg(Linked Group 2) 650 mg, Oral, EVERY 6 HOURS PRN, Starting on Sat08/21/22 at 0340, Until Discontinued, Pain Mild (1-3), Fever, For temp greater than 100.4 F (38 C), Maximum dose of acetaminophen is 4000 mg from all sources in 24 hours. 0731 (Given - Provider: Preet Harrell RN)1716 (Given - Provider: Michaela Hernandez RN) 0501 (Given - Provider: Porter Grewal RN) 1114 (Given - Provider: Jennifer Trammell LPN) calcium carbonate (TUMS) chewable tablet 1,000 mg 1,000 mg, Oral, 3 TIMES DAILY PRN, Starting on Sat08/21/22 at 2121, Until Discontinued, Heartburn 2206 (Given - Provider: Porter Grewal RN) dextrose 10 % infusion IntraVENous, at 100 mL/hr, CONTINUOUS PRN, if blood glucose remains LESS THAN 70 mg/dL after 2 dextrose 10% intravenous boluses or administration of glucagon, Starting on Sat08/21/22 at 1247, If blood glucose fails to stabilize after 2 dextrose 10% intravenous boluses or glucagon administration, start dextrose 10% infusion at 100 mL/hour and repeat blood glucose at 30 and 60 minutes. If blood glucose is GREATER THAN 70 mg/dL after 60 minutes, discontinue dextrose 10% infusion. dextrose bolus 10% 125 mL(Linked Group 3) 125 mL, IntraVENous, at 937.5 mL/hr, Administer over 8 Minutes, PRN, Other, Blood glucose 40 - 69 mg/dL and patient NOT ALERT or NPO, Starting on Sat08/21/22 at 1247, Repeat blood glucose in 15 minutes. If blood glucose remains LESS THAN 70 mg/dL, repeat treatment and recheck blood glucose in 15 minutes x 2. If using glycemic management system, dose as instructed per system. If blood glucose remains LESS THAN 70 mg/dL after 2 intravenous boluses start dextrose 10% at 100 mL/hour and notify provider. dextrose bolus 10% 250 mL(Linked Group 3) 250 mL, IntraVENous, at 937.5 mL/hr, Administer over 16 Minutes, PRN, Other, Blood glucose LESS THAN 40 mg/dL and patient NOT ALERT or NPO, Starting on Sat08/21/22 at 1247, Repeat blood glucose in 15 minutes. If blood glucose remains LESS THAN 70 mg/dL, repeat treatment and recheck blood glucose in 15 minutes x 2. If using glycemic management system, dose as instructed per system. If blood glucose remains LESS THAN 70 mg/dL after 2 intravenous boluses start dextrose 10% at 100 mL/hour and notify provider. glucagon (rDNA) injection 1 mg 1 mg, SubCUTAneous, PRN, Starting on Sat08/21/22 at 1247, Until Discontinued, Low blood sugar, Blood glucose LESS THAN 70 mg/dL and patient NOT ALERT or NPO and does not have IV access., After administration, attempt intravenous access and start dextrose 10% at 100 mL/hr. Repeat blood glucose in 15 minutes x 2 and notify provider. glucose chewable tablet 16 g 16 g (4 tablet), Oral, PRN, Starting on Sat08/21/22 at 1247, Until Discontinued, Low blood sugar, If blood glucose is LESS THAN 70 mg/dL and patient is alert and tolerating oral. Give 4 tablets (16g) Repeat blood glucose in 15 minutes. If blood glucose is LESS THAN 70 mg/dL, repeat treatment and recheck blood glucose in 15 minutes x 2. If blood glucose remains LESS THAN 70 mg/dL, notify provider. ipratropium-albuterol (DUONEB) nebulizer solution 1 ampule 1 ampule, Inhalation, EVERY 4 HOURS PRN, Starting on Sat08/21/22 at 1246, Until Discontinued, Shortness of Breath, Initiate RT Bronchodilator Protocol: Yes - Inpatient Protocol magnesium sulfate 1000 mg in dextrose 5% 100 mL IVPB 1,000 mg, IntraVENous, at 100 mL/hr, Administer over 1 Hours, PRN, Other, Per IV Magnesium Replacement Protocol, Starting on Sat08/21/22 at 0340, Mg Lab Replacement Action 1.4-1.6 1 gram IVPB x 2 doses (2 gram Total) 1.0-1.3 1 gram IVPB x 4 doses (4 gram Total) <1.0 CALL PHYSICIAN and 1 gram IVPB x 4 doses (4 gram Total) Infuse at 1 gram/hr Repeat Mag level next AM Protocol not for use in Patients with CrCl<30ml/min ondansetron (ZOFRAN) injection 4 mg(Linked Group 4) 4 mg, IntraVENous, EVERY 6 HOURS PRN, Starting on Sat08/21/22 at 0340, Until Discontinued, Nausea, Vomiting, Administer if oral route cannot be used. ondansetron (ZOFRAN-ODT) disintegrating tablet 4 mg(Linked Group 4) 4 mg, Oral, EVERY 8 HOURS PRN, Starting on Sat08/21/22 at 0340, Until Discontinued, Nausea, Vomiting polyethylene glycol (GLYCOLAX) packet 17 g 17 g, Oral, DAILY PRN, Starting on Sat08/21/22 at 0340, Until Discontinued, Constipation, First line therapy for constipation potassium bicarb-citric acid (EFFER-K) effervescent tablet 40 mEq(Linked Group 5) 40 mEq, Oral, PRN, Starting on Sat08/21/22 at 0340, Until Discontinued, Per Potassium Replacement Protocol, Administer as alternative if patient unable to tolerate oral tablet. K Lab Replacement Action 3.1 to 3.5 40 mEq ORAL x 1 Under 3.1 Refer to IV replacement protocol Recheck K level in AM. Protocol not for use in patients with CrCl less than 30 mL/min. Do not chew or crush. Dissolve flavored tablets completely in 3 to 4 ounces of cold water; unflavored tablets may be dissolved in 3 to 4 ounces of cold juice. Patient to sip slowly over a 5 to 10 minute period. May further dilute if GI adverse effects occur. potassium chloride (KLOR-CON M) extended release tablet 40 mEq(Linked Group 5) 40 mEq, Oral, PRN, Starting on Sat08/21/22 at 0340, Until Discontinued, Potassium Replacement, May give oral solution if patient unable to tolerate tablet. K Lab Replacement Action 3.1-3.5 40 mEq ORAL x 1 2.7-3.0 Refer to IV replacement orders < 2.7 Refer to IV replacement orders Recheck K level in AM. Not for use in patients with CrCl less than 30 mL/min. potassium chloride 10 mEq/100 mL IVPB (Peripheral Line)(Linked Group 5) 10 mEq, IntraVENous, PRN, Starting on Sat08/21/22 at 0340, Until Discontinued, at 100 mL/hr, Potassium Replacement, K Lab Replacement Action 2.7-3.0 10 mEq IVPB x 6 doses (60 mEq Total) < 2.7 CALL PHYSICIAN and 10 mEq IVPB x 6 doses (60 mEq Total) Infuse at 10 mEq/hr Repeat Potassium lab 1 hour after final administration. Not for use in patients with CrCl less than 30 mL/min. sodium chloride flush 0.9 % injection 10 mL 10 mL, IntraVENous, PRN, Starting on Sat08/21/22 at 0340, Until Discontinued, Line Care, After every IV line use 0856 (Given - Provider: Michaela Hernandez RN) Linked Groups Order Group 1: apixaban (ELIQUIS) tablet 10 mgJump to med 10 mg, Oral, 2 TIMES DAILY, 14 doses, First dose on Sat08/21/22 at 1300, Last dose on Sat08/27/22 at 2100
Indication of Use: Treatment-DVT/PE
ANTICOAGULANT
Followed by apixaban (ELIQUIS) tablet 5 mgJump to med 5 mg, Oral, 2 TIMES DAILY, First dose on Sat08/28/22 at 0900, Until Discontinued
Indication of Use: Treatment-DVT/PE
ANTICOAGULANT
Group 2: acetaminophen (TYLENOL) tablet 650 mgJump to med 650 mg, Oral, EVERY 6 HOURS PRN, Starting on Sat08/21/22 at 0340, Until Discontinued, Pain Mild (1-3), Fever, For temp greater than 100.4 F (38 C)
Maximum dose of acetaminophen is 4000 mg from all sources in 24 hours.
Or acetaminophen (TYLENOL) suppository 650 mgJump to med 650 mg, Rectal, EVERY 6 HOURS PRN, Starting on Sat08/21/22 at 0340, Until Discontinued, Pain Mild (1-3), Fever, For temp greater than 100.4 F (38 C)
Administer if oral route cannot be used.
Group 3: dextrose bolus 10% 125 mLJump to med 125 mL, IntraVENous, at 937.5 mL/hr, Administer over 8 Minutes, PRN, Other, Blood glucose 40 - 69 mg/dL and patient NOT ALERT or NPO, Starting on Sat08/21/22 at 1247
Repeat blood glucose in 15 minutes. If blood glucose remains LESS THAN 70 mg/dL, repeat treatment and recheck blood glucose in 15 minutes x 2. If using glycemic management system, dose as instructed per system. If blood glucose remains LESS THAN 70 mg/dL after 2 intravenous boluses start dextrose 10% at 100 mL/hour and notify provider.
Or dextrose bolus 10% 250 mLJump to med 250 mL, IntraVENous, at 937.5 mL/hr, Administer over 16 Minutes, PRN, Other, Blood glucose LESS THAN 40 mg/dL and patient NOT ALERT or NPO, Starting on Sat08/21/22 at 1247
Repeat blood glucose in 15 minutes. If blood glucose remains LESS THAN 70 mg/dL, repeat treatment and recheck blood glucose in 15 minutes x 2. If using glycemic management system, dose as instructed per system. If blood glucose remains LESS THAN 70 mg/dL after 2 intravenous boluses start dextrose 10% at 100 mL/hour and notify provider.
Group 4: ondansetron (ZOFRAN-ODT) disintegrating tablet 4 mgJump to med 4 mg, Oral, EVERY 8 HOURS PRN, Starting on Sat08/21/22 at 0340, Until Discontinued, Nausea, Vomiting Or ondansetron (ZOFRAN) injection 4 mgJump to med 4 mg, IntraVENous, EVERY 6 HOURS PRN, Starting on Sat08/21/22 at 0340, Until Discontinued, Nausea, Vomiting
Administer if oral route cannot be used.
Group 5: potassium chloride (KLOR-CON M) extended release tablet 40 mEqJump to med 40 mEq, Oral, PRN, Starting on Sat08/21/22 at 0340, Until Discontinued, Potassium Replacement
May give oral solution if patient unable to tolerate tablet. K Lab Replacement Action 3.1-3.5 40 mEq ORAL x 1 & nbsp; 2.7-3.0 Refer to IV replacement orders < 2.7 Refer to IV replacement orders Recheck K level in AM. Not for use in patients with CrCl less than 30 mL/min.
Or potassium bicarb-citric acid (EFFER-K) effervescent tablet 40 mEqJump to med 40 mEq, Oral, PRN, Starting on Sat08/21/22 at 0340, Until Discontinued, Per Potassium Replacement Protocol
Administer as alternative if patient unable to tolerate oral tablet. K Lab Repla cemen t Action 3.1 to 3.5 40 mEq ORAL x 1 Under 3.1 Refer to IV replacement protocol Recheck K level in AM. Protocol not for use in patients with CrCl less than 30 mL/min. Do not chew or crush. Dissolve flavored tablets completely in 3 to 4 ounces of cold water; unflavored tablets may be dissolved in 3 to 4 ounces of cold juice. Patient to sip slowly over a 5 to 10 minute period. May further dilute if GI adverse effects occur.
Or potassium chloride 10 mEq/100 mL IVPB (Peripheral Line)Jump to med 10 mEq, IntraVENous, PRN, Starting on Sat08/21/22 at 0340, Until Discontinued, at 100 mL/hr, Potassium Replacement
K Lab Replacement Action 2.7-3.0 10 mEq IVPB x 6 doses (60 mEq Total) < 2.7 CALL PHYSICIAN and 10 mEq IVPB x 6 doses (60 mEq Total) Infuse at 10 mEq/hr Repeat Potassium lab 1 hour after final administration. Not for use in patients with CrCl less than 30 mL/min.
Scheduled Medication Order 09/02/2022 09/03/2022 09/04/2022 apixaban (ELIQUIS) tablet 5 mg 5 mg, Oral, 2 TIMES DAILY, First dose on Sat08/24/22 at 2100, Until Discontinued, Indication of Use: Treatment-DVT/PE, ANTICOAGULANT 958 (Given - Provider: Sangeeta Kearney RN)2030 (Given - Provider: Nakia Soares RN) 916 (Given - Provider: Rosa Mayo RN)2103 (Given - Provider: Michela Hickey RN) 0854 (Given - Provider: Sangeeta Kearney RN)2099 (Due) atorvastatin (LIPITOR) tablet 20 mg 20 mg, Oral, DAILY, First dose on Sat08/24/22 at 1930, Until Discontinued 2030 (Given - Provider: Nakia Soares RN) 09 (Given - Provider: Rosa Mayo RN) 2099 (Due - Provider: Sangeeta Kearney RN) budesonide-formoterol (SYMBICORT) 80-4.5 MCG/ACT inhaler 2 puff 2 puff, Inhalation, 2 TIMES DAILY, First dose on 08/25/22 at 1300, Until Discontinued, Substituted for Fluticasone-Salmeterol (ADVAIR HFA) 923 (Given - Provider: Stephanie Cortes BALANCE STAFF INSPECTOR)2150 (Given - Provider: Ariela Menezes BALANCE STAFF INSPECTOR) 929 (Given - Provider: Milagro Clifford BALANCE STAFF INSPECTOR)2050 (Given - Provider: Elvia Chauhan BALANCE STAFF INSPECTOR) 08 (Given - Provider: Elan Ventura BALANCE STAFF INSPECTOR)1999 (Due) buPROPion (WELLBUTRIN XL) extended release tablet 150 mg 150 mg, Oral, EVERY MORNING, First dose on Sat08/25/22 at 0900, Until Discontinued, Do not crush or break. 09 (Given - Provider: Sangeeta Kearney RN) 09 (Given - Provider: Rosa Mayo RN) 0854 (Given - Provider: Sangeeta Kearney RN) divalproex (DEPAKOTE SPRINKLE) DR capsule 250 mg 250 mg, Oral, 2 TIMES DAILY, First dose on Sat08/24/22 at 2100, Until Discontinued 958 (Given - Provider: Sangeeta Kearney RN)2031 (Given - Provider: Nakia Soares RN) 918 (Not Given - Provider: Rosa Mayo RN - Reason: Patient/family refused)2103 (Given - Provider: Michela Hickey RN) 0855 (Given - Provider: Sangeeta Kearney RN)2099 (Due) furosemide (LASIX) tablet 20 mg 20 mg, Oral, 2 TIMES DAILY, First dose on Sat08/25/22 at 1730, Until Discontinued 958 (Given - Provider: Sangeeta Kearney RN)1652 (Given - Provider: Sangeeta Kearney RN)165 (Canceled Entry - Provider: Sangeeta Kearney RN) 0917 (Given - Provider: Rosa Mayo RN)165 (Given - Provider: Rosa Mayo RN) 0855 (Given - Provider: Sangeeta Kearney RN)1730 (Due) gabapentin (NEURONTIN) capsule 100 mg 100 mg, Oral, 3 TIMES DAILY, First dose on 09/01/22 at 2345, Until Discontinued 0335 (Given - Provider: Nakia Soares RN)0959 (Given - Provider: Sangeeta Kearney RN)1435 (Given - Provider: Eloise Shea RN)203 (Given - Provider: Nakia Soares RN) 0917 (Given - Provider: Rosa Mayo RN)1658 (Given - Provider: Rosa Mayo RN)2104 (Given - Provider: Michela Hickey RN) 0854 (Given - Provider: Sangeeta Kearney RN)1351 (Given - Provider: Sangeeta Kearney RN)2100 (Due) levothyroxine (SYNTHROID) tablet 200 mcg 200 mcg, Oral, DAILY, First dose on 08/25/22 at 0700, Until Discontinued, Tube feeding (TF) interaction, obtain physician order to manage, recommend holding TF for 30 minutes before and after dose. 0545 (Given - Provider: Nakia Soares RN) 0514 (Given - Provider: Nakia Soares RN) 0532 (Given - Provider: Michela Hickey RN) metFORMIN (GLUCOPHAGE) tablet 1,000 mg 1,000 mg, Oral, 2 TIMES DAILY WITH MEALS, First dose (after last modification) on 08/27/22 at 1700, Until Discontinued 0959 (Given - Provider: Sangeeta Kearney RN)1652 (Given - Provider: Sangeeta Kearney RN)165 (Canceled Entry - Provider: Sangeeta Kearney RN) 0916 (Given - Provider: Rosa Mayo RN)1658 (Given - Provider: Rosa Mayo RN) 0855 (Given - Provider: Sangeeta Kearney RN)1700 (Due) midodrine (PROAMATINE) tablet 5 mg 5 mg, Oral, DAILY, First dose on Sat 18/23 at 1300, Until Discontinued, Do not give after 1800 or within 4 hrs of bedtime. 0959 (Given - Provider: Sangeeta Kearney RN) 0916 (Given - Provider: Rosa Mayo RN) 0854 (Given - Provider: Sangeeta Kearney RN) nicotine (NICODERM CQ) 14 MG/24HR 1 patch 1 patch, TransDERmal, Administer over 24 Hours, DAILY, First dose on Sat08/25/22 at 0900, Apply new patch to nonhairy, clean, dry skin on the upper body or upper outer arm. Rotate patch sites. Notify pharmacy if patient or provider prefers patch to be removed at bedtime and replaced in the morning. Hazardous Medication -- Refer to facility policy for handling and disposal. 0958 (Patch Removed - Provider: Sangeeta Kearney RN)0959 (Patch Applied - Provider: Sangeeta Kearney RN) 0915 (Patch Removed - Provider: Rosa Mayo RN)0920 (Patch Applied - Provider: Rosa Mayo RN) 0859 (Patch Removed - Provider: Sangeeta Kearney RN)1348 (Patch Applied - Provider: Sangeeta Kearney RN) pantoprazole (PROTONIX) tablet 40 mg 40 mg, Oral, DAILY, First dose on Sat08/24/22 at 1930, Until Discontinued, Do not crush or break. 0959 (Given - Provider: Sangeeta Kearney RN) 0916 (Given - Provider: Rosa Mayo RN) 0854 (Given - Provider: Sangeeta Kearney RN) sodium chloride flush 0.9 % injection 5-40 mL 5-40 mL, IntraVENous, EVERY 12 HOURS SCHEDULED (2 times per day), First dose on Sat08/24/22 at 2100, Until Discontinued, For Line Patency: Peripheral IV = 5 mL; Midline or Central Line = 10 mL/lumen. If following IV push medication, administer flush at same rate as the IV push. Flush volume is determined by type of infusion therapy being given. For non-viscous solutions use: Peripheral IV = 5 mL Midline or Central Line = 10 mL/lumen For viscous solutions (i.e. blood components, parenteral nutrition, contrast media, or after obtaining blood sample) use: Peripheral IV = 10 mL Midline or Central Line = 20 mL/lumen 1002 (Not Given - Provider: Sangeeta Kearney RN - Reason: Loss of IV access)2028 (Not Given - Provider: Nakia Soares RN - Reason: Loss of IV access) 0912 (Not Given - Provider: Rosa Mayo RN - Reason: Loss of IV access)2051 (Not Given - Provider: Michela Hickey RN - Reason: Other - Comment: no IVF) 1231 (Not Given - Provider: Sangeeta Kearney RN - Reason: Loss of IV access)2100 (Due) PRN Medication Order 09/02/2022 09/03/2022 09/04/2022 0.9 % sodium chloride infusion IntraVENous, at 5-250 mL/hr, PRN, if patient receiving piggyback infusions and maintenance fluids are not ordered OR KVO fluids to protect IV site / prevent frequent line interruptions/ long duration, Starting on Sat08/24/22 at 1901, For piggyback infusion, administer at same rate as piggyback for a total of 25 mL. Enter 25 mL into dose field and piggyback rate into rate field of order. If piggyback is infusing at a rate less than 100 mL/hr, enter 25 mL into dose field and 100 mL/hr into rate field of order. For KVO fluids, enter rate of 20 mL/hr or less into rate field of order. acetaminophen (TYLENOL) suppository 650 mg(Linked Group 1) 650 mg, Rectal, EVERY 6 HOURS PRN, Starting on Sat08/24/22 at 1901, Until Discontinued, Pain Mild (1-3), Fever, For temp greater than 100.4 F (38 C), Administer if oral route cannot be used. acetaminophen (TYLENOL) tablet 650 mg(Linked Group 1) 650 mg, Oral, EVERY 6 HOURS PRN, Starting on Sat08/24/22 at 1901, Until Discontinued, Pain Mild (1-3), Fever, For temp greater than 100.4 F (38 C), Maximum dose of acetaminophen is 4000 mg from all sources in 24 hours. hydrOXYzine HCl (ATARAX) tablet 10 mg 10 mg, Oral, 3 TIMES DAILY PRN, Starting on 08/25/22 at 1212, Until Discontinued, Itching ipratropium-albuterol (DUONEB) nebulizer solution 3 mL 3 mL (1 vial), Nebulization, EVERY 6 HOURS PRN, Starting on 08/25/22 at 1243, Until Discontinued, Shortness of Breath, Initiate RT Bronchodilator Protocol: Yes - Inpatient Protocol loperamide (IMODIUM) capsule 2 mg 2 mg, Oral, 4 TIMES DAILY PRN, Starting on Isatu 08/30/22 at 1457, Until Discontinued, Diarrhea, After each loose stool. nicotine (NICODERM CQ) 21 MG/24HR 1 patch 1 patch, TransDERmal, Administer over 24 Hours, DAILY PRN, nicotine crav ing, Starting on 08/25/22 at 1242, Apply new patch to nonhairy, clean, dry skin on the upper body or upper outer arm. Rotate patch sites. Notify pharmacy if patient or provider prefers patch to be removed at bedtime and replaced in the morning. Hazardous Medication -- Refer to facility policy for handling and disposal. ondansetron (ZOFRAN) injection 4 mg(Linked Group 2) 4 mg, IntraVENous, EVERY 6 HOURS PRN, Starting on 08/24/22 at 1901, Until Discontinued, Nausea, Vomiting, Administer if oral route cannot be used. ondansetron (ZOFRAN-ODT) disintegrating tablet 4 mg(Linked Group 2) 4 mg, Oral, EVERY 8 HOURS PRN, Starting on 08/24/22 at 1901, Until Discontinued, Nausea, Vomiting polyethylene glycol (GLYCOLAX) packet 17 g 17 g, Oral, DAILY PRN, Starting on 08/24/22 at 1901, Until Discontinued, Constipation, First line therapy for constipation sodium chloride flush 0.9 % injection 5-40 mL 5-40 mL, IntraVENous, PRN, Starting on 08/24/22 at 1901, Until Discontinued, Line Care, After every IV line use, For Line Patency: Peripheral IV = 5 mL; Midline or Central Line = 10 mL/lumen. If following IV push medication, administer flush at same rate as the IV push. Flush volume is determined by type of infusion therapy being given. For non-viscous solutions use: Peripheral IV = 5 mL Midline or Central Line = 10 mL/lumen For viscous solutions (i.e. blood components, parenteral nutrition, contrast media, or after obtaining blood sample) use: Peripheral IV = 10 mL Midline or Central Line = 20 mL/lumen Linked Groups Order Group 1: acetaminophen (TYLENOL) tablet 650 mgJump to med 650 mg, Oral, EVERY 6 HOURS PRN, Starting on Sat08/24/22 at 1901, Until Discontinued, Pain Mild (1-3), Fever, For temp greater than 100.4 F (38 C)
Maximum dose of acetaminophen is 4000 mg from all sources in 24 hours.
Or acetaminophen (TYLENOL) suppository 650 mgJump to med 650 mg, Rectal, EVERY 6 HOURS PRN, Starting on Sat08/24/22 at 1901, Until Discontinued, Pain Mild (1-3), Fever, For temp greater than 100.4 F (38 C)
Administer if oral route cannot be used.
Group 2: ondansetron (ZOFRAN-ODT) disintegrating tablet 4 mgJump to med 4 mg, Oral, EVERY 8 HOURS PRN, Starting on Sat08/24/22 at 1901, Until Discontinued, Nausea, Vomiting Or ondansetron (ZOFRAN) injection 4 mgJump to med 4 mg, IntraVENous, EVERY 6 HOURS PRN, Starting on Sat08/24/22 at 1901, Until Discontinued, Nausea, Vomiting
Administer if oral route cannot be used.
Scheduled Medication Order 05/11/2024 05/12/2024 05/13/2024 apixaban (Eliquis) tablet 5 mg 5 mg, Oral, 2 times daily, First dose on 05/10/24 at 2100, Anticoagulant 1004 (Given - Provider: Ban Kim RN)2100 (Self Administered Via Pump - Provider: Jp Clark RN) 0837 (Given - Provider: Kirstin Bloom RN)2032 (Given - Provider: David Esquivel RN) 0816 (Given - Provider: Kirstin Bloom, SHANA) dapagliflozin (Farxiga) tablet 10 mg 10 mg, Oral, Daily, First dose on 05/10/24 at 1620, Indications: Heart Failure, Type 2 Diabetes Mellitus 0946 (Given - Provider: Ban Kim RN) 0838 (Given - Provider: Kirstin Bloom RN) 0816 (Given - Provider: Kirstin Bloom RN) famotidine (Pepcid) 20 mg in sodium chloride (PF) 0.9 % 10 mL injection(Linked Group 1) 20 mg, IntraVENous, Administer over 2 Minutes, 2 times daily, First dose on 05/10/24 at 2100, IV or ORAL 1004 (See Alternative - Provider: Ban Kim RN)2100 (See Alternative - Provider: Jp Clark RN) 0837 (See Alternative - Provider: Kirstin Bloom RN)2100 (See Alternative - Provider: David Esquivel RN) 0816 (See Alternative - Provider: Kirstin Bloom RN) famotidine (Pepcid) tablet 20 mg(Linked Group 1) 20 mg, Oral, 2 times daily, First dose on 05/10/24 at 2100, IV or ORAL 1004 (Given - Provider: Ban Kim RN)2100 (Self Administered Via Pump - Provider: Jp Clark RN) 0837 (Given - Provider: Kirstin Bloom RN)2100 (Not Given - Provider: David Esquivel RN - Reason: Patient/family refused) 0816 (Given - Provider: Kirstin Bloom RN) gabapentin (Neurontin) capsule 300 mg 300 mg, Oral, 3 times daily, First dose on 05/10/24 at 1620 1005 (Given - Provider: Ban Kim RN)1320 (Given - Provider: Ban Kim RN)2100 (Self Administered Via Pump - Provider: Jp Clark RN) 0837 (Given - Provider: Kirstin Bloom RN)1404 (Given - Provider: Kirstin Bloom RN)2033 (Given - Provider: David Esquivel RN) 0816 (Given - Provider: Kirstin Bloom RN)1400 (Canceled Entry - Provider: Automatic Discharge Provider - Comment: Automatically canceled at discontinue of medication order) Insulin Lispro (Humalog) injection 0-12 Units(Linked Group 2) 0-12 Units, SubCUTAneous, 3 times daily with meals, First dose on 05/10/24 at 1700, Medium Dose Correction Algorithm Glucose: Dose: LESS than 150 No Insulin 150-199 2 Units 200-249 4 Units 250-299 6 Units 300-349 8 Units 350-400 10 Units Above 400 12 Units 0942 (Given - Provider: Ban Kim RN)1319 (Given - Provider: Ban Kim RN)1700 (Not Given - Provider: Ban Kim RN - Reason: Order parameters not met) 0837 (Given - Provider: Kirstin Bloom RN)1200 (Not Given - Provider: Kirstin Bloom RN - Reason: Order parameters not met)1646 (Given - Provider: Kirstin Bloom RN) 0816 (Given - Provider: Kirstin Bloom RN)1308 (Given - Provider: Kirstin Bloom RN)1700 (Canceled Entry - Provider: Automatic Discharge Provider - Comment: Automatically canceled at discontinue of medication order) Insulin Lispro (Humalog) injection 0-12 Units(Linked Group 2) 0-12 Units, SubCUTAneous, Nightly, First dose on Sat05/10/24 at 2100, If eating or bolus tube feeding: Medium Dose Correction Algorithm Glucose: Dose: LESS than 150 No Insulin 150-199 2 Units 200-249 4 Units 250-299 6 Units 300-349 8 Units 350-400 10 Units Above 400 12 Units 2100 (Self Administered Via Pump - Provider: Jp Clark RN) 2255 (Given - Provider: David Esquivel RN) levothyroxine (Synthroid, Levoxyl) tablet 137 mcg 137 mcg, Oral, Daily before breakfast, First dose on Sat05/11/24 at 0600, Tube feeding (TF) interaction, obtain physician order to manage, recommend holding TF for 30 minutes before and after dose. 0606 (Given - Provider: Jp Clark RN) 0536 (Given - Provider: Jp Clark RN) 0751 (Given - Provider: Kirstin Bloom, RN) lurasidone (Latuda) tablet 40 mg 40 mg, Oral, Daily with breakfast, First dose on Sat05/11/24 at 0800 0946 (Given - Provider: Ban Kim RN) 0839 (Given - Provider: Kirstin Bloom RN) 0816 (Given - Provider: Kirstin Bloom, RN) PRN Medication Order 05/11/2024 05/12/2024 05/13/2024 acetaminophen (Tylenol) suppository 650 mg(Linked Group 3) 650 mg, Rectal, Every 6 hours PRN, mild pain (1-3), fever, For temp greater than 100.4 F (38 C), Starting on 05/10/24 at 1638, Administer if oral route cannot be used. Maximum dose of acetaminophen is 4000 mg from all sources in 24 hours. acetaminophen (Tylenol) tablet 650 mg(Linked Group 3) 650 mg, Oral, Every 6 hours PRN, mild pain (1-3), fever, For temp greater than 100.4 F (38 C), Starting on 05/10/24 at 1638, Maximum dose of acetaminophen is 4000 mg from all sources in 24 hours. dextrose 5 % infusion 100 mL/hr, IntraVENous, PRN, Blood sugar less than 70mg/dL, Starting on 05/10/24 at 1638, Start infusion following administration of dextrose 50% or glucagon. dextrose 50 % solution 12.5 g 12.5 g, IntraVENous, PRN, low blood sugar, Blood glucose less than 70 mg/dL and patient NOT ALERT or NPO., Starting on 05/10/24 at 1638, If patient does not respond within 5 minutes, repeat dose x1. Start D5W at 100 mL/hour until ordering provider can be reached. Repeat blood glucose in 15 minutes. If blood glucose is less than 70 mg/dL, repeat treatment and recheck blood glucose in 15 minutes x2. If using Glucostabilizer, dose as instructed per system. glucagon (human recombinant) injection 1 mg 1 mg, IntraMUSCular, PRN, low blood sugar, Blood glucose less than 70 mg/dL and patient NOT ALERT or NPO and does not have IV access., Starting on 05/10/24 at 1638, After administration, attempt intravenous access and start D5W at 100 mL/hr. Repeat blood glucose in 15 minutes x2 and notify provider. glucose oral gel 15 g 15 g, Oral, As needed, low blood sugar, Starting on 05/10/24 at 1638, If blood glucose less than 50 mg/dL and patient ALERT and NOT NPO, give 2 tubes glucose gel. If blood glucose less than 70 mg/dL and patient ALERT and NOT NPO, give 1 tube glucose gel. Repeat blood glucose in 15 minutes. If blood glucose is less than 70 mg/dL, repeat treatment and recheck blood glucose in 15 minutes x2 and notify provider. melatonin tablet 3 mg 3 mg, Oral, Nightly PRN, sleep, Starting on 05/10/24 at 1638 ondansetron (Zofran) injection 4 mg(Linked Group 4) 4 mg, IntraVENous, Every 6 hours PRN, nausea, vomiting, Starting on 05/10/24 at 1638, 1st Line. Give IV if patient is unable to take orally. If inadequate response within 60 minutes, proceed to next-line agent or contact provider if no further options ordered. ondansetron ODT (Zofran-ODT) disintegrating tablet 4 mg(Linked Group 4) 4 mg, Oral, Every 8 hours PRN, nausea, vomiting, Starting on 05/10/24 at 1638, 1st Line. If inadequate response within 60 minutes, proceed to next-line agent or contact provider if no further options ordered. Patient should allow tablet to dissolve on tongue. Do not remove from blister pack until just before administering. polyethylene glycol (PEG) 3350 (Miralax) packet 17 g 17 g, Oral, Daily PRN, constipation, Starting on 05/10/24 at 1638, 1st line for treatment of constipation - give scheduled if no bowel movement in past 24 hours. Linked Groups Order Group 1: famotidine (Pepcid) tablet 20 mgJump to med 20 mg, Oral, 2 times daily, First dose on 05/10/24 at 2100, IV or ORAL Or famotidine (Pepcid) 20 mg in sodium chloride (PF) 0.9 % 10 mL injectionJump to med 20 mg, IntraVENous, Administer over 2 Minutes, 2 times daily, First dose on 05/10/24 at 2100, IV or ORAL Group 2: Insulin Lispro (Humalog) injection 0-12 UnitsJump to med 0-12 Units, SubCUTAneous, 3 times daily with meals, First dose on 05/10/24 at 1700, Medium Dose Correction Algorithm Glucose: Dose: LESS than 150 No Insulin 150-199 2 Units 200-249 4 Units 250-299 6 Units 300-349 8 Units 350-400 10 Units Above 400 12 Units And Insulin Lispro (Humalog) injection 0-12 UnitsJump to med 0-12 Units, SubCUTAneous, Nightly, First dose on 05/10/24 at 2100, If eating or bolus tube feeding: Medium Dose Correction Algorithm Glucose: Dose: LESS than 150 No Insulin 150-199 2 Units 200-249 4 Units 250-299 6 Units 300-349 8 Units 350- 400 10 Units Above 400 12 Units Group 3: acetaminophen (Tylenol) tablet 650 mgJump to med 650 mg, Oral, Every 6 hours PRN, mild pain (1-3), fever, For temp greater than 100.4 F (38 C), Starting on 05/10/24 at 1638, Maximum dose of acetaminophen is 4000 mg from all sources in 24 hours. Or acetaminophen (Tylenol) suppository 650 mgJump to med 650 mg, Rectal, Every 6 hours PRN, mild pain (1-3), fever, For temp greater than 100.4 F (38 C), Starting on 05/10/24 at 1638, Administer if oral route cannot be used. Maximum dose of acetaminophen is 4000 mg from all sources in 24 hours. Group 4: ondansetron ODT (Zofran-ODT) disintegrating tablet 4 mgJump to med 4 mg, Oral, Every 8 hours PRN, nausea, vomiting, Starting on 05/10/24 at 1638, 1st Line. If inadequate response within 60 minutes, proceed to next-line agent or contact provider if no further options ordered. Patient should allow tablet to dissolve on tongue. Do not remove from blister pack until just before administering. Or ondansetron (Zofran) injection 4 mgJump to med 4 mg, IntraVENous, Every 6 hours PRN, nausea, vomiting, Starting on 05/10/24 at 1638, 1st Line. Give IV if patient is unable to take orally. If inadequate response within 60 minutes, proceed to next-line agent or contact provider if no further options ordered. INFORMATION SOURCE (unrecogn ized section and content) DATE CREATED AUTHOR 11/03/2020 [facility] DATE CREATED AUTHOR AUTHOR'S ORGANIZ ATION 11/11/2020 [facility] DATE CREATED AUTHOR AUTHOR'S ORGANIZ ATION 11/12/2020 [facility] DATE CREATED AUTHOR AUTHOR'S ORGANIZ ATION 10/13/2022 [facility] DATE CREATED AUTHOR AUTHOR'S ORGANIZ ATION 12/27/2022 [facility] DATE CREATED AUTHOR AUTHOR'S ORGANIZ ATION 07/02/2023 [facility] DATE CREATED AUTHOR AUTHOR'S ORGANIZ ATION 01/05/2024 [facility] DATE CREATED AUTHOR AUTHOR'S ORGANIZ ATION 05/14/2024 [facility] DATE CREATED AUTHOR AUTHOR'S ORGANIZ ATION 12/03/2024 [facility] DATE CREATED AUTHOR AUTHOR'S ORGANIZ ATION 12/25/2024 [facility] Care Teams (unrecognized sec tion and content) Residential Program Coordinator Relationship Specialty Start Date End Date Vasiliy Griffin [address] [place], [place] [id number] PCP - General 09/15/20 Residential Program Coordinator Relationship Specialty Start Date End Date Vasiliy Griffin [address] [place] [address]. [place], [place] [id number] PCP - General 09/15/20 Residential Program Coordinator Relationship Specialty Start Date End Date Brice Mcfarland, MEETING COORDINATOR [address] [place] [address] PCP - General Nurse Practitioner Family 08/20/22 Residential Program Coordinator Relationship Specialty Start Date End Date Brice Mcfarland, MEETING COORDINATOR [address] [place] [address] PCP - General Nurse Practitioner Family 08/20/22 Residential Program Coordinator Relationship Specialty Start Date End Date Brice Mcfarland, MEETING COORDINATOR [address] [place] [address] PCP - General Nurse Practitioner Family 08/20/22 Residential Program Coordinator Relationship Specialty Start Date End Date Vasiliy Griffin, MEETING COORDINATOR - ACOUSTICS TEACHER [address] [place] [address] PCP - General 09/15/20 Residential Program Coordinator Relationship Specialty Start Date End Date Bronson Kearney (Hist) [address] [place] [address] PCP - General 09/20/00 Residential Program Coordinator Relationship Specialty Start Date End Date Bronson Kearney (Hist) [address] [place] [address] PCP - General 09/20/00 Residential Program Coordinator Relationship Specialty Start Date End Date Bronson Kearney (Hist) [address] [place] [address] PCP - General 09/20/00 Residential Program Coordinator Relationship Specialty Start Date End Date Bronson Kearney (Hist) [address] [place] [address] PCP - General 09/20/00 Residential Program Coordinator Relationship Specialty Start Date End Date Brice Mcfarland APRN-ENVELOPE MACHINE ADJUSTER [address] [place] [address] PCP - General Family Medicine 10/06/21 Residential Program Coordinator Relationship Specialty Start Date End Date Brice Mcfarland MEETING COORDINATOR-ENVELOPE MACHINE ADJUSTER [address] [place] [address] PCP - General Family Medicine 10/06/21 Residential Program Coordinator Relationship Specialty Start Date End Date Brice Mcfarland MEETING COORDINATOR-ENVELOPE MACHINE ADJUSTER [address] [place] [address] PCP - General Family Medicine 10/06/21 Residential Program Coordinator Relationship Specialty Start Date End Date Brice Mcfarland MEETING COORDINATOR-ENVELOPE MACHINE ADJUSTER [address] [place] [address] PCP - General Family Medicine 10/06/21 Residential Program Coordinator Relationship Specialty Start Date End Date Brice Mcfarland MEETING COORDINATOR-ENVELOPE MACHINE ADJUSTER [address] [place] [address] PCP - General Family Medicine 10/06/21 Residential Program Coordinator Relationship Specialty Start Date End Date Brice Mcfarland APRN-ENVELOPE MACHINE ADJUSTER [address] [place] [address] PCP - General Family Medicine 10/06/21 Residential Program Coordinator Relationship Specialty Start Date End Date Bronson Kearney (Hist) [address] [place] [address] PCP - General 09/20/00 Residential Program Coordinator Relationship Specialty Start Date End Date Brice Mcfarland MEETING COORDINATOR-ENVELOPE MACHINE ADJUSTER [address] [place] [address] PCP - General Family Medicine 10/06/21 Residential Program Coordinator Relationship Specialty Start Date End Date Brice Mcfarland MEETING COORDINATOR-ENVELOPE MACHINE ADJUSTER [address] [place] [address] PCP - General Family Medicine 10/06/21 Residential Program Coordinator Relationship Specialty Start Date End Date Brice Mcfarland MEETING COORDINATOR-ENVELOPE MACHINE ADJUSTER [address] [place] [address] PCP - General Family Medicine 10/06/21 Team Status: Active Member Role Status Dates Dr. Ragini Lentz MD Primary Care Provider Ac tive Team Status: Inactive Member Role Status Dates Dr. Johana Varela MD Attending Provider Active Start: October 15, 2024 End: October 15, 2024 Team Status: Inactive Member Role Status Dates Dr. Johana Varela MD Attending Provider Active Start: November 06, 2024 End: November 06, 2024 Dr. Johana Varela MD Referring Provider Active Start: November 06, 2024 End: November 06, 2024 Dr. Ragini Lentz MD Primary Care Provider Ac tive Start: November 06, 2024 End: November 06, 2024 Team Status: Active Member Role Status Dates Dr. Johana Varela MD Attending Provider Active Start: November 06, 2024 Dr. Johana Varela MD Referring Provider Active Start: November 06, 2024 Dr. Johaan Varela MD Other Provider Active St art: November 06, 2024 Dr. Ragini Lentz MD Primary Care Provider Ac tive Start: November 06, 2024 Team Status: Inactive Member Role Status Dates Dr. Ragini Lentz MD Primary Care Provider Ac tive Start: November 09, 2024 End: November 09, 2024 Dr. Denilson Polanco MD Attending Provider Active Start: November 09, 2024 End: November 09, 2024 Dr. Denilson Polanco MD Referring Provider Active Start: November 09, 2024 End: November 09, 2024 Team Status: Inactive Member Role Status Dates Dr. Ragini Lentz MD Primary Care Provider Ac tive Start: December 02, 2024 End: December 02, 2024 Dr. Ragini Lentz MD Referring Provider Activ e Start: December 02, 2024 End: December 02, 2024 PADDY Shepard Attending Provider Active Start: December 02, 2024 End: December 02, 2024 Source Comments (unrecognize d section and content) In the event this informatio n is protected by the Federal Confidentiality of Alcohol and Drug Abuse Patient Records regulations: The Federal rules restrict any use of the information to criminally investigate or prosecute any alcohol or drug abuse patient.[facility] the event this information is protected by the Federal Confidentiality of Alcohol and Drug Abuse Patient Records regulations: The Federal rules restrict any use of the information to criminally investigate or prosecute any alcohol or drug abuse patient.[facility] the event this information is protected by the Federal Confidentiality of Alcohol and Drug Abuse Patient Records regulations: The Federal rules restrict any use of the information to criminally investigate or prosecute any alcohol or drug abuse patient.[facility] the event this information is protected by the Federal Confidentiality of Alcohol and Drug Abuse Patient Records regulations: The Federal rules restrict any use of the information to criminally investigate or prosecute any alcohol or drug abuse patient.[facility] the event this information is protected by the Federal Confidentiality of Alcohol and Drug Abuse Patient Records regulations: The Federal rules restrict any use of the information to criminally investigate or prosecute any alcohol or drug abuse patient.[facility] FOR RECORDS PERTAINING TO PATIENTS WHO ARE OR HAVE BEEN ENROLLED IN A CHEMICAL DEPENDENCY/SUBSTANCEABUSE PROGRAM, SOME INFORMATION MAY BE OMITTED. This clinical summary was aggregated from multiple sources. Caution should be exercised in using it in the provision of clinical care. This summary normalizes information from multiple sources, and as a consequence, information in this document may materially change the coding, format and clinical context of patient data. In addition, data may be omitted in some cases. CLINICAL DECISIONS SHOULD BE BASED ON THE PRIMARY CLINICAL RECORDS. [facility] [employer] [facility]. provides no warranty or guarantee of the accuracy or completeness of information in this document.
[2025-01-16 00:03] LABS: AST(SGOT) 15 U/L (<=31); Alanine Aminotransfer ALT/SGPT 16 U/L (<=34); Albumin, Serum 3.6 g/dL (3.4-4.8); Alkaline Phosphatase 116 U/L (35-104); Anion Gap 12 (5-15); BUN 21 mg/dL (4-19); BUN/Creat Ratio 21.2 RATIO (10-20); Calcium,Total 9.4 mg/dL (7.6-11.0); Carbon Dioxide 27.3 mmol/L (21.0-32.0); Chloride 98 mmol/L (98-108); Estimated Creatinine Clearance 81.83 ml/min (50-250); Globulin 4.3 g/dL (2.2-4.2); Glucose 212 mg/dL (70-99); Lipase 25 U/L (13-75); Potassium 3.9 mmol/L (3.3-5.1)
[2025-01-16 00:16] LABS: Hematocrit 43.6 % (37-47); Hemoglobin 13.2 g/dL (12.0-15.0); Immature Granulocytes Count 0.040 X10^3/uL (0.0-0.0); Mean Corp Hgb Conc 30.3 g/dL (32-36); Mean Corpuscular Volume 81.8 fL (81-99); Mean Platelet Vol. 9.6 fl (6.2-12.0); NRBC Flagged by Analyzer 0 % (0-5); Platelet Count 263 K/mm3 (150-450); RBC Distribution Width CV 17.2 % (11.6-14.6); RBC Distribution Width SD 50.3 fl (35.1-43.9); Red Blood Count 5.33 M/mm3 (4.2-5.4); White Blood Count 10.1 K/mm3 (4.4-11.0)
--- NOTE | 2025-01-16 00:40 | EX.ED.DYSGE1 ---
HPI History of Present Illness Chief Complaint: Back Narrative Narrative: Patient is a 59-year-old female with past medical history of GERD, hypothyroidism, schizophrenia, hypertension, hyperlipidemia, CHF, COPD, anxiety, depression, cerebral palsy who presented to the emergency department with multiple complaints including concern for urinary tract infection, dental pain which she was recently started on antibiotic for as well as lower extremity wounds that been going on for significant mount of time. Patient states that she was supposed to follow-up with a dentist today however did not make her appointment and was started on ampicillin for her dental pain. Patient notes that she was concerned about her wounds and wanted this evaluated as well. Patient states that she tried to have the nursing facility check out to see if she had a urinary tract infection and they would not do this either. [facility] Medical History History of suicidal ideation Abscess or cellulitis of foot Achalasia of esophagus Overactive bladder GERD (gastroesophageal reflux disease) Hypothyroidism Schizophrenia HTN (hypertension) Polyarthritis Hyperlipidemia Dysphagia Heart failure Diabetes COPD (chronic obstructive pulmonary disease) Depression Anxiety Cerebral palsy Home Medications ?Medication ?Instructions ?Recorded ?Last Taken ?Type apixaban 2.5 mg tablet 2.5 mg PO BID 10/15/24 Unknown History dapagliflozin propanediol 10 mg 10 mg PO QAM 10/15/24 Unknown History tablet famotidine 20 mg tablet 20 mg PO QDAY 10/15/24 Unknown History fluticasone propionate 50 1 spray intranasal QDAY 10/15/24 Unknown History mcg/actuation nasal spray,suspension (Flonase Allergy Relief) gabapentin 300 mg capsule 300 mg PO TID 10/15/24 Unknown History insulin glargine 100 unit/mL (3 18 unit subcut QPM 10/15/24 Unknown History mL) subcutaneous pen (Lantus Solostar U-100 Insulin) insulin glargine 100 unit/mL 24 unit subcut QAM 10/15/24 Unknown History subcutaneous solution (Lantus U-100 Insulin) insulin lispro 100 unit/mL 1 sliding scale dose subcut 10/15/24 Unknown History subcutaneous pen (Humalog KwikPen USEASDIRECTD (U-100) Insulin) levothyroxine 137 mcg capsule 137 mcg PO QDAY 10/15/24 Unknown History mirabegron 50 mg tablet,extended 50 mg PO QDAY 10/15/24 Unknown History release 24 hr (Myrbetriq) topiramate 25 mg tablet (Topamax) 25 mg PO QDAY 10/15/24 Unknown History ubrogepant 100 mg tablet 100 mg PO ONCE 10/15/24 Unknown History acetaminophen 325 mg capsule 650 mg PO Q4H PRN fever or pain 11/06/24 Unknown History nystatin 100,000 unit/gram topical 1 applic topical DAILY 11/06/24 Unknown History powder (Nystop) zolmitriptan 5 mg disintegrating 5 mg PO Q4H PRN PRN migraine 11/06/24 Unknown History tablet headache cetirizine 10 mg capsule (Zyrtec) 10 mg PO QDAY PRN 12/02/24 Unknown History fluconazole 150 mg tablet 150 mg PO QDAY 12/02/24 Unknown History zolmitriptan 5 mg tablet See Rx Instructions PO .COMPLEX 12/02/24 Unknown History cephalexin 500 mg capsule 500 mg PO BID 7 days #14 caps 01/16/25 Unknown Rx Allergy/AdvReac Type Severity Reaction Status Date / Time No Known Allergies Allergy Unverified 12/02/24 10:45 Social History Smoking Status: Former smoker ROS ROS ED ROS Narrative Constitutional: Denies any fevers, chills, headaches Eyes, ears, nose, throat: Complains of dental pain as noted above denies change in vision double vision blurry vision Cardiovascular: Denies chest pain Respiratory: Denies shortness of breath Abdomen: Denies abdominal pain nausea vomit diarrhea : Complains of urinary symptoms as noted above Neurological: Denies numbness, wheeze, tingling Musculoskeletal: Complains of back pain as noted above Skin: Complains of chronic wounds to the lower extremities as noted above EXAM Physical Exam Narrative Exam Narrative: General: Patient lying in bed rest comfortably did not appear to be in acute distress Head: Atraumatic, normocephalic Eyes, ears, nose, throat: No sublingual swelling, no periapical abscess or drainable fluid collection noted near her pain which was at tooth 27, PERRL bilaterally, EOMI biotic, no conjunctival injection noted Neck: Soft, supple, trachea midline Cardiovascular: Regular rate and rhythm Respiratory: Clear to auscultation bilaterally Abdomen: Soft, nondistended, nontender to palpation Extremities: +4/5 strength noted in the bilateral lower extremities Neurological: Patient follow commands that she was at [facility] Skin: Patient has wounds noted to the bilateral lower extremities which are well-healing no concern for active infection at this point in time Const Vital Signs: 01/15/25 23:09 01/15/25 23:13 01/16/25 01:09 Temperature 99.1 F 99.1 F Temperature Source Oral Oral Pulse Rate 100 100 Respiratory Rate 18 18 Blood Pressure 131/85 H 131/85 H 112/54 L Blood Pressure Mean 100 100 73 Pulse Ox 92 92 Oxygen Delivery Method Room Air Room Air MDM MDM MDM Narrative Medical decision making narrative: Patient is a 59-year-old female who presented to the emergency department with multiple complaints as noted above. On the differential diagnose includes but not limited to UTI, pyelonephritis, dental pain secondary to dental caries. Once workup is obtained reviewed she will be reevaluated. Her wounds on her legs are well-healing no concern for infection at this point time. Patient be given IV fluids morphine Zofran Patient's CBC reviewed showed no evidence leukocytosis white blood count was normal at 10.1, he was 13.2, platelet count was normal at 263. Patient's sodium was 137, [place] normal 3.9, creatinine normal at 1. Patient AST and ALT are 15 and 16 respectively, lipase normal at 25. Patient urinalysis showed positive nitrites, 25 leukocyte esterase 25-50 white cells with 3+ bacteria she did have 10-25 squamous of cells and sent for culture however she will be given a gram of Rocephin here in the emergency department and placed on Keflex as well. She is advised to follow-up with the dental/oral surgeon that she was originally supposed to follow-up with today and continue the antibiotics for her dental pain that she was also restarted on today. She was advised to return with worsening symptoms or concerns otherwise she can follow-up with her doctor per setting. She is agreeable this plan all question concerns answered she was discharged home in stable condition. Lab Data Labs: Laboratory Results - last 24 hr 01/15/25 01/16/25 23:34 00:40 WBC 10.1 RBC 5.33 Hgb 13.2 Hct 43.6 MCV 81.8 MCH 24.8 L MCHC 30.3 L RDW Std Deviation 50.3 H RDW Coeff of [place] 17.2 H Plt Count 263 MPV 9.6 Immature Gran % (Auto) 0.400 Neut % (Auto) 70.8 H Lymph % (Auto) 21.7 [place] % (Auto) 4.2 Eos % (Auto) 2.5 Baso % (Auto) 0.4 Absolute Neuts (auto) 7.2 Absolute Lymphs (auto) 2.20 Nucleated RBC % 0 Sodium 137 Potassium 3.9 Chloride 98 Carbon Dioxide 27.3 Anion Gap 12 BUN 21 H Creatinine 1.00 Estim Creat Clear Calc 81.83 Est GFR (MDRD) Non-Af 64 BUN/Creatinine Ratio 21.2 H Glucose 212 H Calcium 9.4 Total Bilirubin 0.23 AST 15 ALT 16 Alkaline Phosphatase 116 H Total Protein 7.8 Albumin 3.6 Globulin 4.3 H Albumin/Globulin Ratio 0.8 L Lipase 25 Urine Color Straw Urine Clarity Sl. Cloudy Urine pH 6.5 Ur Specific [place] 1.015 Urine Protein Negative Urine Glucose (UA) 1000 H Urine Ketones Negative Urine Occult Blood Negative Urine Nitrite Positive H Urine Bilirubin Negative Urine Urobilinogen Normal Ur Leukocyte Esterase 25 H Urine RBC 0 SEEN Urine WBC 25-50 SEEN Ur Squamous Epith Cells 10-25 SEEN Urine Bacteria 3+ Urine Mucus 0 SEEN Discharge Plan Triage Chief Complaint: Back Other Complaint: Complaint ED Provider: Aime Zhang Dx/Rx/DC Orders Clinical Impression: Pain, dental, Urinary tract infection, History of hypertension, COPD (chronic obstructive pulmonary disease) Prescriptions: New cephalexin 500 mg capsule 500 mg PO BID 7 Days Qty: 14 0RF No Action apixaban 2.5 mg tablet 2.5 mg PO BID dapagliflozin propanediol 10 mg tablet 10 mg PO QAM famotidine 20 mg tablet 20 mg PO QDAY fluticasone propionate [Flonase Allergy Relief] 50 mcg/actuation spray,suspension 1 spray intranasal QDAY Rx Instructions: administer into each nostril gabapentin 300 mg capsule 300 mg PO TID insulin lispro [Humalog KwikPen Insulin] 100 unit/mL insulin pen 1 sliding scale dose subcut USEASDIRECTD insulin glargine [Lantus Solostar U-100 Insulin] 100 unit/mL (3 mL) insulin pen 18 unit subcut QPM insulin glargine [Lantus U-100 Insulin] 100 unit/mL solution 24 unit subcut QAM levothyroxine 137 mcg capsule 137 mcg PO QDAY mirabegron [Myrbetriq] 50 mg tablet extended release 24 hr 50 mg PO QDAY topiramate [Topamax] 25 mg tablet 25 mg PO QDAY ubrogepant 100 mg tablet 100 mg PO ONCE Rx Instructions: as a single dose; may repeat once in >=2 hours after first dose if needed fluconazole 150 mg tablet 150 mg PO QDAY zolmitriptan 5 mg tablet See Rx Instructions PO .COMPLEX Rx Instructions: take 1 tab at onset of headache; if no relief, may repeat 1 tab after at least 2 hrs; max = 2 tabs/24 hrs PO Zyrtec 10 mg capsule 10 mg PO QDAY PRN nystatin [Nystop] 100,000 unit/gram powder 1 applic topical DAILY zolmitriptan 5 mg tablet,disintegrating 5 mg PO Q4H PRN PRN (Reason: migraine headache) acetaminophen 325 mg capsule 650 mg PO Q4H PRN (Reason: fever or pain) Primary Care Provider: Ragini Lentz Referrals: Ragini Lentz MD [Primary Care Provider] - Activity Restrictions/Additional Instructions: Take antibiotics as prescribed. Follow-up the dentist in the outpatient setting. Follow-up on urine culture to ensure that you are on the appropriate antibiotic for your urinary tract infection. Your blood work did not show any acute findings. Return with worsening symptoms or any concerns Print Language: Cameroonian Disposition Disposition: Home, Self Care
[2025-01-16 00:50] LABS: Mucous, Urine 0 SEEN /hpf (<or=2+); Red Blood Cells-Urine 0 SEEN /hpf (0-5)
[2025-01-16 00:53] LABS: Color, Urine Straw (Yellow); Glucose, Dipstick 1000 mg/dl (Normal); Ketone-Dipstick Negative (Negative); Leukocyte Esterase-Dipstick 25 /ul (Negative); Nitrite-Dipstick Positive (Negative); Occult Blood-Urine Negative /ul (Negative); Protein-Dipstick Negative (Negative); Specific Gravity, Urine 1.015 (1.002-1.030); Urine Bilirubin Dipstick Negative (Negative)
[2025-01-16 01:09] VITALS: BP 112/54
[2025-01-16 01:21] LABS: Squamous Epithelial Cells - UA 10-25 SEEN /hpf (5-10)
[2025-01-16 01:43] VITALS: BP 93/49; PULSE 91; RESP 18; TEMP 36.7; O2SAT 97
== END 2025-01-16 02:40 | disposition home or self-care (01) ==
PROVIDERS: Emergency Provider Emergency Medicine; PCP Hospitalist; Visit Provider Emergency Medicine
DX: K08.89 Other specified disorders of teeth and supporting structures (principal); F20.9 Schizophrenia, unspecified; I11.0 Hypertensive heart disease with heart failure; I50.9 Heart failure, unspecified; J44.9 Chronic obstructive pulmonary disease, unspecified; E11.9 Type 2 diabetes mellitus without complications; N39.0 Urinary tract infection, site not specified; Z87.891 Personal history of nicotine dependence
CPT/HCPCS: 80053; 81001; 83690; 85025; 87077; 87086; 87088; 87186; 96361; 96365; 96375; 99285; A4216; J2405